=== PATIENT | male | born 1950 | race American Indian/Alaskan Native ===

== ENCOUNTER 2016-11-02 16:11 | Inpatient (IN) | payer MEDICARE ==
[2016-11-02 16:26] VITALS: BMI 30.5
[2016-11-02 17:27] LABS: EOS # 0.1 K/uL (0.0-0.7); EOS % 1.2 % (0.0-4.0)
[2016-11-02 17:29] LABS: BASO % 0.7 % (0.0-2.0); HEMATOCRIT 39.5 % (35.0-51.0); LYMPH % 16.2 % (20.0-40.0); MEAN CELL VOLUME 85.1 fL (80.0-94.0); MEAN CORPUSCULAR HEMOGLOBIN 27.1 pg (27.0-31.0); MEAN CORPUSCULAR HGB CONC 31.9 g/dL (33.0-37.0); MEAN PLATELET VOLUME 7.8 fL (7.2-11.7); MONO % 15.1 % (0.0-10.0); RED CELL DISTRIBUTION WIDTH 18.5 % (11.5-14.5); WHITE BLOOD COUNT 6.5 K/uL (4.8-10.8)
--- NOTE | 2016-11-02 17:32 | RAD ---
PROCEDURE: Radiographs of the chest and abdomen (obstructive series) HISTORY: abd pain COMPARISON: Chest x-ray 04/25/2016 TECHNIQUE: AP radiograph of the chest, with upright and supine radiographs of the abdomen. FINDINGS: CHEST: Lungs: No definite infiltrate. Evaluation at right base limited by the presence of moderate pleural effusion. Linear atelectasis adjacent to right hilum. Cardiovascular: Cardiomegaly. AICD. Mild congestive change. Pleura: Moderate right pleural effusion. No left pleural effusion. No pneumothorax. Other findings: None. ABDOMEN AND PELVIS: Bowel: Unremarkable bowel gas pattern. No evidence of mechanical obstruction. Mild retained feces. Free air: None. Bones: Unremarkable. Other findings: None. IMPRESSION: Moderate right pleural effusion. Cardiomegaly and AICD. Mild pulmonary vascular congestion. Unremarkable abdominal bowel gas pattern. Mild retained feces.
[2016-11-02 17:36] LABS: INR 1.4
[2016-11-02 17:37] LABS: CHLORIDE 101 mmol/L (98-107)
[2016-11-02 17:38] LABS: POTASSIUM 3.8 mmol/L (3.6-5.2); SODIUM 143 mmol/L (132-148)
[2016-11-02 17:40] LABS: ALB/GLOB RATIO 0.8 (1.0-2.1); ALKALINE PHOSPHATASE 88 U/L (38-126); ALT/SGPT 23 U/L (21-72); AST/SGOT 35 U/L (17-59); BILIRUBIN,TOTAL 1.3 mg/dL (0.2-1.3); BLOOD UREA NITROGEN 19 mg/dL (9-20); CARBON DIOXIDE 28 mmol/L (22-30); GFR AFRICAN-AMERICAN > 60; GLUCOSE,RANDOM 81 mg/dL (75-110); TOTAL PROTEIN 8.5 g/dL (6.3-8.3)
[2016-11-02 17:41] LABS: CALCIUM 8.6 mg/dl (8.6-10.4)
[2016-11-02 17:47] LABS: RBC URINE 11 /hpf (0-3); URINE BACTERIA RARE (<OCC); URINE BILIRUBIN NEGATIVE (NEGATIVE); URINE BLOOD 1+ (NEGATIVE); URINE CALCIUM OXALATE CRYSTALS RARE /hpf (<OCC); URINE GLUCOSE (UA) NORMAL (Normal); URINE KETONE NEGATIVE (NEGATIVE); URINE LEUKOCYTE ESTERASE NEG Leu/uL (Negative); URINE PROTEIN 3+ mg/dL (NEGATIVE); WBC URINE 3 /hpf (0-5)
[2016-11-02 17:50] LABS: URINE COLOR YELLOW (YELLOW)
--- NOTE | 2016-11-02 19:10 | C.PDOC ---
History Of Present Illness 66 year old male who presents to the ER for reaccumulating ascites. Patient was referred by Dr. Mariluz Mahajan for therapeutic abdominal paracentesis; denies nausea, vomiting, fever, or chills. Time Seen by Provider: 11/02/16 16:48 Chief Complaint (Nursing): Abdominal Pain History Per: Patient History/Exam Limitations: no limitations Onset/Duration Of Symptoms: Days Current Symptoms Are (Timing): Still Present Radiation Of Pain To:: None Associated Symptoms: denies: Fever, Chills, Nausea, Vomiting Exacerbating Factors: None Alleviating Factors: None Recent travel outside of the [place]: No Past Medical History Reviewed: Historical Data, Nursing Documentation, Vital Signs Vital Signs: Last Vital Signs Temp 97.4 F L 11/02/16 20:06 Pulse 89 11/02/16 20:06 Resp 27 H 11/02/16 20:06 BP 133/92 H 11/02/16 20:06 Pulse Ox 98 11/02/16 21:41 - Medical History PMH: Arthritis, CHF, Diabetes, HTN, Hypercholesterolemia Surgical History: Appendectomy, Pacemaker (pt states only defibrillator) - STARFACE Procedures DRAINAGE OF PERITONEAL CAVITY, PERCUTANEOUS APPROACH, DIAGN (04/26/16) Family History: States: Unknown Family Hx - Social History Hx Tobacco Use: No Hx Alcohol Use: Yes Hx Substance Use: No - Immunization History Hx Tetanus Toxoid Vaccination: Yes Hx Influenza Vaccination: Yes Hx Pneumococcal Vaccination: Yes Review Of Systems Constitutional: Negative for: Fever, Chills Respiratory: Positive for: Cough (When supine, cannot lay supine) Gastrointestinal: Positive for: Other (Ascites). Negative for: Nausea, Vomiting Neurological: Negative for: Weakness, Numbness Physical Exam - Physical Exam Appears: Non-toxic, Other (Elderly, Chronically ill) Skin: Normal Color, Warm, Dry Head: Atraumatic, Normacephalic Oral Mucosa: Moist Neck: Normal, Supple Chest: Symmetrical, No Tenderness Cardiovascular: Rhythm Regular, No Murmur Respiratory: Normal Breath Sounds, No Rales, No Rhonchi, No Wheezing Gastrointestinal/Abdominal: Soft, No Tenderness, Other (Large globus abdomen with ascites wave, flank fullness) Neurological/Psych: Oriented x3, Normal Speech, Normal Cognition ED Course And Treatment - Laboratory Results Result Diagrams: 11/02/16 17:00 11/02/16 17:19 Lab Interpretation: Normal (ua neg.) ECG: Interpreted By Me ECG Rhythm: V Paced ECG Interpretation: Normal Rate From EC O2 Sat by Pulse Oximetry: 98 - Radiology CXR: Interpreted by Me CXR Interpretation: Yes: No Acute Disease - Other Rad abd x 2 X-Ray: Interpreted by Me (normal stool/gas) Progress Note: Consent and attempt at abd paracentesis in ED, though pt unable to lay supine due to coughing, presumably from small R pleural effusion. 3 attempts with needle anesthesia/prob @ L abdomen without achieving ascitic fluid. Further attempts abandoned. LOW susp of bowl perf. Pt cleaned up and left to sit supine. Well tolerated. Reevaluation Time: 19:13 Reassessment Condition: Improved - Physician Consult Information Outcome Of Conversation: 1900: d/w Dr. Irvin Mahajan, ok to adm and plan for IR in AM Medical Decision Making Medical Decision Making: Recurrent accumulation of abd ascites with low susp of SBP, poor insight into fluid balance as pt overdrinking his diuretic regimen. Educated. Disposition Doctor Will See Patient In The: Hospital Counseled Patient/Family Regarding: Studies Performed, Diagnosis - Disposition Disposition: HOSPITALIZED Disposition Time: 19:14 Condition: GOOD - Clinical Impression Clinical Impression: Ascites - Scribe Statement The provider has reviewed the documentation as recorded by the Scribe Alec Dhillon All medical record entries made by the Gopiibe were at my direction and personally dictated by me. I have reviewed the chart and agree that the record accurately reflects my personal performance of the history, physical exam, medical decision making, and the department course for this patient. I have also personally directed, reviewed, and agree with the discharge instructions and disposition.
[2016-11-02] MEDS: (Novolog) Insulin Aspart, Recombinant 100 u/ml 10 ml vial SC SCH (21:49)
[2016-11-02] MEDS: Potassium Chloride 10 mEq ER Tab PO SCH (21:55)
[2016-11-03 00:31] VITALS: RESP 20
[2016-11-03] MEDS: (Novolog) Insulin Aspart, Recombinant 100 u/ml 10 ml vial SC SCH ×4 (07:47→22:50)
[2016-11-03] MEDS: Potassium Chloride 10 mEq ER Tab PO SCH (09:41)
--- NOTE | 2016-11-03 12:54 | CP.PCM.CON ---
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 Patient notes recurrent episodes of leg swelling and abdominal distension since diagnosed with CHF 5 years ago. Notes compliance to diuretic therapy and admits to four prior paracentesis. Associated shortness of breath with laying flat. Denies nausea, vomiting, hematemesis, abdominal pain, diarrhea, constipation, melena, hematochezia, unintentional weight loss, confusion, or altered sleeping habits. No prior EGD. Colonoscopy over ten years ago endorsed to be normal. Family-denies colon cancer, liver cancer Social- prior quart of beer daily x 30 years, endorsed sobriety for 30-40 years denies tobacco or illicit drug use Surgery-AICD, thoracentesis, paracentesis Review of Systems - Review of Systems Review of Systems: 12-point review of systems negative except for as above Past Patient History - Past Medical History & Family History Past Medical History?: Yes - Past Social History Smoking Status: Former Smoker - CARDIAC Hx Congestive Heart Failure: Yes Hx Hypercholesterolemia: Yes Hx Hypertension: Yes Hx Pacemaker: Yes (pt states only defibrillator) - PULMONARY Hx Respiratory Disorders: No - NEUROLOGICAL Hx Neurological Disorder: No - HEENT Hx HEENT Problems: No - RENAL Hx Chronic Kidney Disease: No - ENDOCRINE/METABOLIC Hx Diabetes Mellitus Type 2: Yes - HEMATOLOGICAL/ONCOLOGICAL Hx Blood Disorders: No - INTEGUMENTARY Hx Dermatological Problems: No - MUSCULOSKELETAL/RHEUMATOLOGICAL Hx Arthritis: Yes Hx Falls: Yes - GASTROINTESTINAL Hx Gastrointestinal Disorders: No Other/Comment: ascites - GENITOURINARY/GYNECOLOGICAL Hx Genitourinary Disorders: No - PSYCHIATRIC Hx Substance Use: No - SURGICAL HISTORY Hx Appendectomy: Yes Hx Herniorrhaphy: Yes (abdominal) - ANESTHESIA Hx Anesthesia: Yes Hx Anesthesia Reactions: No Meds Allergies/Adverse Reactions: Allergies Allergy/AdvReac Type Severity Reaction Status Date / Time No Known Allergies Allergy Verified 11/02/16 16:19 - Medications Medications: Current Medications Furosemide (Lasix) 40 mg IVP DAILY [facility] Last Admin: 11/03/16 09:42 Dose: 40 mg Hydralazine HCl (Apresoline) 25 mg PO DAILY [facility] Last Admin: 11/03/16 09:41 Dose: 25 mg Insulin Aspart (Novolog) 0 unit SC ACHS [facility] PRN Reason: Protocol Last Admin: 11/03/16 12:32 Dose: Not Given Pantoprazole Sodium (Protonix Inj) 40 mg IVP DAILY [facility] Last Admin: 11/03/16 09:42 Dose: 40 mg Pneumococcal Polyvalent Vaccine (Pneumovax 23 Vaccine) 0.5 ml IM .ONCE ONE Stop: 11/04/16 10:01 Polyethylene Glycol (Miralax) 17 gm PO DAILY [facility] Potassium Chloride (Klor-Con 10) 10 meq PO DAILY [facility] Last Admin: 11/03/16 09:41 Dose: 10 meq Physical Exam - Constitutional Appears: Non-toxic, No Acute Distress - Head Exam Head Exam: ATRAUMATIC, NORMOCEPHALIC - Eye Exam Eye Exam: EOMI, PERRL Pupil Exam: PERRL. absent: Miosis, Mydriatic - ENT Exam ENT Exam: Mucous Membranes Moist, Normal Oropharynx - Neck Exam Neck exam: Positive for: Full Rom, Normal Inspection - Respiratory Exam Respiratory Exam: Clear to Auscultation Bilateral. absent: Rales, Rhonchi, Wheezes - Cardiovascular Exam Cardiovascular Exam: RRR, +S1, +S2. absent: Gallop, Rubs - GI/Abdominal Exam GI & Abdominal Exam: Distended, Normal Bowel Sounds. absent: Firm, Guarding, Organomegaly, Rebound, Rigid - Extremities Exam Additional comments: B/L LE swelling R>L - Neurological Exam Neurological exam: Alert - Psychiatric Exam Psychiatric exam: Normal Affect, Normal Mood - Skin Skin Exam: Dry, Intact, Normal Color, Warm Results - Vital Signs Recent Vital Signs: Last Vital Signs Temp 97.3 F L 11/03/16 08:00 Pulse 81 11/03/16 08:00 Resp 20 11/03/16 08:00 BP 138/86 11/03/16 09:42 Pulse Ox 98 11/03/16 08:00 - Labs Result Diagrams: 11/02/16 17:00 11/02/16 17:19 Labs: Laboratory Results - last 24 hr 11/03/16 11:27 POC Glucose (mg/dL) 85 Assessment & Plan - Assessment and Plan (Free Text) Assessment: 66 year old male with history of Hypertension, Diabetes, CHF s/p AICD requiring prior thoracentesis, 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 Active treatment of decompensated cirrhosis 2/2 ascites. No prior EGD. Colonoscopy over ten years ago endorsed to be normal. Plan: >MELD 11 >diagnostic and therapeutic paracentesis ordered with fluid analysis >prior paracentesis 04/2016-SAAG 1.3, TP >2.5 >possible cardiac cirrhosis, in addition to significant alcohol history >ordered CT IV contrast to evaluate for HCC and history of seroma on last CT imaging >Duplex U/S ordered >Hepatitis panel negative 04/2016 >ordered autoimmune workup >normal LFTs, daily LFTs,PT/INR >low salt diet >Miralax daily >will consider EGD early next week for variceal screening >recommend elective outpatient colonoscopy for CRC screening >will follow clinical course <Yamila Tao MD - Last Filed: 11/03/16 18:13> Meds - Medications Medications: Current Medications Furosemide (Lasix) 40 mg IVP DAILY [facility] Last Admin: 11/03/16 09:42 Dose: 40 mg Hydralazine HCl (Apresoline) 25 mg PO DAILY [facility] Last Admin: 11/03/16 09:41 Dose: 25 mg Insulin Aspart (Novolog) 0 unit SC [facility] PRN Reason: Protocol Last Admin: 11/03/16 17:03 Dose: Not Given Pantoprazole Sodium (Protonix Inj) 40 mg IVP DAILY [facility] Last Admin: 11/03/16 09:42 Dose: 40 mg Pneumococcal Polyvalent Vaccine (Pneumovax 23 Vaccine) 0.5 ml IM .ONCE ONE Stop: 11/04/16 10:01 Polyethylene Glycol (Miralax) 17 gm PO DAILY [facility] Last Admin: 11/03/16 14:55 Dose: 17 gm Potassium Chloride (Klor-Con 10) 10 meq PO DAILY [facility] Last Admin: 11/03/16 09:41 Dose: 10 meq Results - Vital Signs Recent Vital Signs: Last Vital Signs Temp 97.5 F L 11/03/16 15:00 Pulse 79 11/03/16 15:00 Resp 20 11/03/16 15:00 BP 135/83 08/19/17 15:00 Pulse Ox 96 11/03/16 15:00 - Labs Result Diagrams: 11/02/16 17:00 11/02/16 17:19 Labs: Laboratory Results - last 24 hr 11/03/16 11/03/16 11:27 16:26 POC Glucose (mg/dL) 85 128 H Attending/Attestation - Attestation I have personally seen and examined this patient.: Yes I have fully participated in the care of the patient.: Yes I have reviewed all pertinent clinical information: Yes Notes (Text): 11/03/16 18:10 I have seen and examined patient with GI fellow. Agree with above documentation with the following additions. In brief, this is a 66 year old male with history of DM, HTN, CHF s/p ICD, past thoracent[place] [facility] [place] (?hepatic [place]thorax), who presents to hospital with complaint of progressive abdominal girth and dyspnea on exertion for the past 2 days. 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 Last paracentesis showed SAAG more than 1.5 with total protein more than 2.5 compatible with cardiac cirrhosis. 30 years ago history of alcohol abuse. Hepatitis serologies negative. Needs repeat paracentesis. He had a colonoscopy over 10 years ago which was normal as per patient, no prior EGD. - Obtain diagnostic and therapeutic paracentesis today, await results of cell count, total protein, albumin, cytology - Albumin replacement therapy pending volume of fluid removed - Low sodium diet as tolerated - Continue with diuretic therapy, may add aldactone and continue to monitor electrolytes - LFTs stable, continue to monitor - Patient would benefit from elective outpatient EGD for variceal screening and colonoscopy for age appropriate colon cancer screening following resolution of acute symptoms. - Will obtain triple phase Ct scan and abdominal sonogram with dopplers 11/03/16 18:13
--- NOTE | 2016-11-03 14:32 | CP.PCM.HP ---
Past Patient History - Past Medical History & Family History Past Medical History?: Yes - Past Social History Smoking Status: Former Smoker - CARDIAC Hx Congestive Heart Failure: Yes Hx Hypercholesterolemia: Yes Hx Hypertension: Yes Hx Pacemaker: Yes (pt states only defibrillator) - PULMONARY Hx Respiratory Disorders: No - NEUROLOGICAL Hx Neurological Disorder: No - HEENT Hx HEENT Problems: No - RENAL Hx Chronic Kidney Disease: No - ENDOCRINE/METABOLIC Hx Diabetes Mellitus Type 2: Yes - HEMATOLOGICAL/ONCOLOGICAL Hx Blood Disorders: No - INTEGUMENTARY Hx Dermatological Problems: No - MUSCULOSKELETAL/RHEUMATOLOGICAL Hx Arthritis: Yes Hx Falls: Yes - GASTROINTESTINAL Hx Gastrointestinal Disorders: No Other/Comment: ascites - GENITOURINARY/GYNECOLOGICAL Hx Genitourinary Disorders: No - PSYCHIATRIC Hx Substance Use: No - SURGICAL HISTORY Hx Appendectomy: Yes Hx Herniorrhaphy: Yes (abdominal) - ANESTHESIA Hx Anesthesia: Yes Hx Anesthesia Reactions: No Meds Allergies/Adverse Reactions: Allergies Allergy/AdvReac Type Severity Reaction Status Date / Time No Known Allergies Allergy Verified 11/02/16 16:19 Physical Exam - Constitutional Appears: Well - Head Exam Head Exam: ATRAUMATIC, NORMAL INSPECTION, NORMOCEPHALIC - Eye Exam Eye Exam: EOMI, Normal appearance, PERRL Pupil Exam: NORMAL ACCOMODATION, PERRL - ENT Exam ENT Exam: Mucous Membranes Moist, Normal Exam - Neck Exam Neck exam: Positive for: Normal Inspection - Respiratory Exam Respiratory Exam: Decreased Breath Sounds - Cardiovascular Exam Cardiovascular Exam: REGULAR RHYTHM, +S1, +S2 - GI/Abdominal Exam GI & Abdominal Exam: Diminished Bowel Sounds, Soft - Rectal Exam Rectal Exam: Deferred Results - Vital Signs Recent Vital Signs: Last Vital Signs Temp 97.3 F L 11/03/16 08:00 Pulse 81 11/03/16 08:00 Resp 20 11/03/16 08:00 BP 138/86 11/03/16 09:42 Pulse Ox 98 11/03/16 08:00 - Labs Result Diagrams: 11/02/16 17:00 11/02/16 17:19 Labs: Laboratory Results - last 24 hr 11/03/16 11:27 POC Glucose (mg/dL) 85
[2016-11-03] MEDS: POLYETHYLENE GLYCOL 3350 17 GM/Dose PACKET PO SCH (14:55)
--- NOTE | 2016-11-04 07:38 | CP.PCM.PN ---
Subjective - Date & Time of Evaluation Date of Evaluation: 11/04/16 Time of Evaluation: 05:40 - Subjective Subjective: clinically same Objective - Vital Signs/Intake and Output Vital Signs (last 24 hours): Temp Pulse Resp BP Pulse Ox 98.2 F 80 20 133/77 94 L 11/04/16 00:00 11/04/16 00:00 11/04/16 00:00 11/04/16 00:00 11/04/16 00:00 Intake and Output: 11/04/16 11/04/16 06:59 18:59 Intake Total 200 Balance 200 - Medications Medications: Current Medications Furosemide (Lasix) 40 mg IVP DAILY [facility] Last Admin: 11/03/16 09:42 Dose: 40 mg Hydralazine HCl (Apresoline) 25 mg PO DAILY [facility] Last Admin: 11/03/16 09:41 Dose: 25 mg Insulin Aspart (Novolog) 0 unit SC ACHS [facility] PRN Reason: Protocol Last Admin: 11/03/16 22:50 Dose: Not Given Pantoprazole Sodium (Protonix Inj) 40 mg IVP DAILY [facility] Last Admin: 11/03/16 09:42 Dose: 40 mg Pneumococcal Polyvalent Vaccine (Pneumovax 23 Vaccine) 0.5 ml IM .ONCE ONE Stop: 11/04/16 10:01 Polyethylene Glycol (Miralax) 17 gm PO DAILY [facility] Last Admin: 11/03/16 14:55 Dose: 17 gm Potassium Chloride (Klor-Con 10) 10 meq PO DAILY [facility] Last Admin: 11/03/16 09:41 Dose: 10 meq - Labs Labs: PT 15.3 SECONDS (9.7-12.2) H 11/02/16 17:19 INR 1.4 11/02/16 17:19 APTT 37 SECONDS (21-34) H 11/02/16 17:19 - Constitutional Appears: Well - Head Exam Head Exam: ATRAUMATIC, NORMAL INSPECTION, NORMOCEPHALIC - Eye Exam Eye Exam: EOMI, Normal appearance, PERRL Pupil Exam: NORMAL ACCOMODATION, PERRL - ENT Exam ENT Exam: Mucous Membranes Moist, Normal Exam - Neck Exam Neck Exam: Full ROM, Normal Inspection. absent: Lymphadenopathy - Respiratory Exam Respiratory Exam: Decreased Breath Sounds - Cardiovascular Exam Cardiovascular Exam: REGULAR RHYTHM, +S1, +S2 - GI/Abdominal Exam GI & Abdominal Exam: Soft, Diminished Bowel Sounds - Rectal Exam Rectal Exam: Deferred
[2016-11-04] MEDS: (Novolog) Insulin Aspart, Recombinant 100 u/ml 10 ml vial SC SCH ×4 (07:47→22:08)
[2016-11-04] MEDS ORDERED: Iohexol 300 100 ML IJ ONE (07:58)
[2016-11-04 08:47] LABS: IRON 53 ug/dL (49-181)
[2016-11-04 09:05] LABS: IMMUNOGLOBULIN G 2549.1 mg/dL (700.0-1600.0)
[2016-11-04 09:06] LABS: IMMUNOGLOBULIN A 567.4 mg/dL (70.0-400.0); IMMUNOGLOBULIN M 92.9 mg/dL (40.0-230.0)
[2016-11-04] MEDS ORDERED: Iohexol 350mg/ml 100 ML ONE (09:13)
--- NOTE | 2016-11-04 09:23 | CP.PCM.PN ---
<Sandra Colunga - Last Filed: 11/04/16 12:01> Subjective - Date & Time of Evaluation Date of Evaluation: 11/04/16 Time of Evaluation: 09:20 - Subjective Subjective: Gastroenterology Fellow/PGY5 Progress Note Patient doing well. Denies abdominal pain. Tolerating diet. No bowel movement yesterday. A 12-point review of systems negative except for as above. Objective - Vital Signs/Intake and Output Vital Signs (last 24 hours): Temp Pulse Resp BP Pulse Ox 98.4 F 78 20 143/88 95 11/04/16 09:01 11/04/16 09:01 11/04/16 09:01 11/04/16 09:01 11/04/16 09:01 Intake and Output: 11/04/16 11/04/16 06:59 18:59 Intake Total 200 Balance 200 - Medications Medications: Current Medications Furosemide (Lasix) 40 mg IVP DAILY [facility] Last Admin: 11/03/16 09:42 Dose: 40 mg Guaifenesin/Dextromethorphan (Robitussin Dm) 10 ml PO TID PRN PRN Reason: Cough and congestion Hydralazine HCl (Apresoline) 25 mg PO DAILY [facility] Last Admin: 11/03/16 09:41 Dose: 25 mg Insulin Aspart (Novolog) 0 unit SC ACHS [facility] PRN Reason: Protocol Last Admin: 11/04/16 07:47 Dose: Not Given Pantoprazole Sodium (Protonix Inj) 40 mg IVP DAILY [facility] Last Admin: 11/03/16 09:42 Dose: 40 mg Pneumococcal Polyvalent Vaccine (Pneumovax 23 Vaccine) 0.5 ml IM .ONCE ONE Stop: 11/04/16 10:01 Polyethylene Glycol (Miralax) 17 gm PO DAILY [facility] Last Admin: 11/03/16 14:55 Dose: 17 gm Potassium Chloride (Klor-Con 10) 10 meq PO DAILY [facility] Last Admin: 11/03/16 09:41 Dose: 10 meq - Labs Labs: PT 15.3 SECONDS (9.7-12.2) H 11/02/16 17:19 INR 1.4 11/02/16 17:19 APTT 37 SECONDS (21-34) H 11/02/16 17:19 - Constitutional Appears: Non-toxic, No Acute Distress - Head Exam Head Exam: NORMOCEPHALIC - Eye Exam Eye Exam: EOMI, PERRL Pupil Exam: PERRL. absent: Miosis, Mydriatic - ENT Exam ENT Exam: Mucous Membranes Moist, Normal Oropharynx - Neck Exam Neck Exam: Full ROM, Normal Inspection - Respiratory Exam Respiratory Exam: Clear to Ausculation Bilateral. absent: Rales, Rhonchi, Wheezes - Cardiovascular Exam Cardiovascular Exam: RRR, +S1, +S2. absent: Gallop, Rubs - GI/Abdominal Exam GI & Abdominal Exam: Distended, Normal Bowel Sounds. 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 Active treatment of decompensated cirrhosis 2/2 ascites. No prior EGD. Colonoscopy over ten years ago endorsed to be normal. Plan: >MELD 11 >diagnostic and therapeutic paracentesis ordered with fluid analysis >pending CT IV contrast to evaluate for HCC and history of seroma on last CT imaging >pending Duplex U/S >possible cardiac cirrhosis, in addition to significant alcohol history -prior paracentesis 04/2016-SAAG 1.3, TP >2.5 >Hepatitis panel negative 04/2016 >pending autoimmune workup >normal LFTs, daily LFTs,PT/INR >low salt diet >Miralax daily >will benefit from elective EGD for variceal screening >recommend elective outpatient colonoscopy for CRC screening >will follow clinical course <Yamila Tao MD - Last Filed: 11/04/16 12:57> Objective - Vital Signs/Intake and Output Vital Signs (last 24 hours): Temp Pulse Resp BP Pulse Ox 98.4 F 78 20 143/88 95 11/04/16 09:01 11/04/16 09:01 11/04/16 09:01 11/04/16 11:33 11/04/16 09:01 Intake and Output: 11/04/16 11/04/16 06:59 18:59 Intake Total 200 Balance 200 - Medications Medications: Current Medications Furosemide (Lasix) 40 mg IVP DAILY [facility] Last Admin: 11/04/16 11:33 Dose: 40 mg Guaifenesin/Dextromethorphan (Robitussin Dm) 10 ml PO TID PRN PRN Reason: Cough and congestion Hydralazine HCl (Apresoline) 25 mg PO DAILY [facility] Last Admin: 11/04/16 11:34 Dose: 25 mg Insulin Aspart (Novolog) 0 unit SC ACHS [facility] PRN Reason: Protocol Last Admin: 11/04/16 11:34 Dose: Not Given Pantoprazole Sodium (Protonix Inj) 40 mg IVP DAILY [facility] Last Admin: 11/04/16 11:32 Dose: 40 mg Polyethylene Glycol (Miralax) 17 gm PO DAILY [facility] Last Admin: 11/04/16 11:32 Dose: 17 gm Potassium Chloride (Klor-Con 10) 10 meq PO DAILY [facility] Last Admin: 11/04/16 11:34 Dose: 10 meq - Labs Labs: 11/04/16 12:16 11/04/16 12:16 PT 15.3 SECONDS (9.7-12.2) H 11/02/16 17:19 INR 1.4 11/02/16 17:19 APTT 37 SECONDS (21-34) H 11/02/16 17:19 Attending/Attestation - Attestation I have personally seen and examined this patient.: Yes I have fully participated in the care of the patient.: Yes I have reviewed all pertinent clinical information, including history, physical exam and plan: Yes Notes (Text): 11/04/16 12:57 I have seen and examined patient with GI fellow. Agree with above documentation with the following additions. In brief, this is a 66 year old male with history of DM, HTN, CHF s/p ICD, past thoracentesis at [facility] [place] (?hepatic hydrothorax), who presents to hospital with complaint of progressive abdominal girth and dyspnea on exertion for the past 2 days. 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 Last paracentesis showed SAAG more than 1.5 with total protein more than 2.5 compatible with cardiac cirrhosis. 30 years ago history of alcohol abuse. Hepatitis serologies negative. Needs repeat paracentesis. He had a colonoscopy over 10 years ago which was normal as per patient, no prior EGD. - Obtain diagnostic and therapeutic paracentesis today, await results of cell count, total protein, albumin, cytology - Albumin replacement therapy pending volume of fluid removed - Low sodium diet as tolerated - Continue with diuretic therapy, may add aldactone and continue to monitor electrolytes - LFTs stable, continue to monitor - Patient would benefit from elective outpatient EGD for variceal screening and colonoscopy for age appropriate colon cancer screening following resolution of acute symptoms. - Will obtain triple phase Ct scan and abdominal sonogram with dopplers
[2016-11-04] MEDS ORDERED: Pneumococcal 23-Valent Vaccine IM ONE (10:00)
--- NOTE | 2016-11-04 10:47 | CT ---
PROCEDURE: CT Abdomen and Pelvis with contrast HISTORY: evaluate cirrhosis and history of seroma COMPARISON: CT abdomen and pelvis without contrast performed 04/25/16 TECHNIQUE: Contrast dose: 100 mL Omnipaque 350 Radiation dose: Total exam DLP = 892.39 MGy-cm. This CT exam was performed using one or more of the following dose reduction techniques: Automated exposure control, adjustment of the mA and/or kV according to patient size, and/or use of iterative reconstruction technique. FINDINGS: LOWER THORAX: Partially imaged large right pleural effusion associated consolidation. No visible pneumothorax. Partially imaged cardiomegaly. AICD wires. LIVER: Hypoattenuation of the liver compatible with hepatic steatosis. Nodular hepatic contour consistent with cirrhosis. GALLBLADDER AND BILE DUCTS: Cholelithiasis. PANCREAS: Unremarkable. SPLEEN: Unremarkable. ADRENALS: Unremarkable. KIDNEYS AND URETERS: The kidneys enhance symmetrically. No hydronephrosis or obstructing calculus identified. VASCULATURE: No aortic aneurysm. BOWEL: Stomach is nondistended. Lack of oral contrast limits evaluation for bowel pathology. Bowel loops appear within normal limits of caliber without evidence of obstruction. Duodenal wall thickening possibly infectious or inflammatory etiologies. Correlate clinically. APPENDIX: The appendix is not identified. PERITONEUM: Small to moderate abdominal and pelvic ascites. No definite free air. LYMPH NODES: Prominent sub cm mesenteric and retroperitoneal lymph nodes, nonspecific. Prominent bilateral inguinal lymph nodes, nonspecific. BLADDER: Decompressed urinary bladder precludes adequate evaluation. REPRODUCTIVE: Unremarkable. BONES: Degenerative changes. OTHER FINDINGS: 2.1 x 7.2 cm collection within the anterior soft tissues, infraumbilical position ; central focus of hyperdensity, likely calcification. Collection appears grossly stable in size and appearance. IMPRESSION: Partially imaged large right pleural effusion associated consolidation. Partially imaged cardiomegaly. Cyst. Nodular hepatic contour consistent with cirrhosis. Cholelithiasis. Duodenal wall thickening possibly infectious or inflammatory etiologies. Correlate clinically. Small to moderate abdominal and pelvic ascites. 2.1 x 7.2 cm collection within the anterior soft tissues, infraumbilical position ; central focus of hyperdensity, likely calcification. Collection appears grossly stable in size and appearance. Additional findings as above.
--- NOTE | 2016-11-04 11:09 | US ---
HISTORY: cirrhosis, evaluate portal system for thrombosis COMPARISON: CT abdomen and pelvis with IV contrast performed 11/04/16 TECHNIQUE: Sonographic evaluation of the abdomen. FINDINGS: LIVER: Measures 17.1 cm in sagittal dimension. Nodular hepatic contour consistent with cirrhosis. Echogenic liver may be seen in setting of hepatic parenchymal disease or fatty infiltration. No focal hepatic mass identified. The main portal vein appears patent with normal directional flow. No intrahepatic bile duct dilatation. Ascites. GALLBLADDER: Cholelithiasis. Gallbladder wall thickening measuring approximately 4 mm. Negative sonographic Dunbar's sign as assessed by the advanced manufacturing associate. COMMON BILE DUCT: Measures 3 mm. PANCREAS: Not well visualized. RIGHT KIDNEY: Measures 10.8 x 5.2 x 5.7cm. No obstructing calculus or hydronephrosis identified. LEFT KIDNEY: Measures 11.0 x 6.1 x 5.2cm. No obstructing calculus or hydronephrosis identified. SPLEEN: Measures approximately 11.1 cm. AORTA: Limited views appear unremarkable. IVC: Limited views appear unremarkable. OTHER FINDINGS: Partially imaged right pleural effusion. IMPRESSION: Echogenic liver may be seen in setting of hepatic parenchymal disease or fatty infiltration. Nodular hepatic contour consistent with cirrhosis. Cholelithiasis. Gallbladder wall thickening. Correlate clinically. Abdominal ascites. Partially imaged right pleural effusion.
[2016-11-04] MEDS: POLYETHYLENE GLYCOL 3350 17 GM/Dose PACKET PO SCH (11:32)
[2016-11-04] MEDS: Potassium Chloride 10 mEq ER Tab PO SCH (11:34)
[2016-11-04 12:19] LABS: BASO % 0.3 % (0.0-2.0); EOS # 0.1 K/uL (0.0-0.7); EOS % 1.5 % (0.0-4.0); HEMATOCRIT 39.2 % (35.0-51.0); LYMPH # 0.9 K/uL (1.0-4.3); LYMPH % 14.5 % (20.0-40.0); MEAN CELL VOLUME 85.2 fL (80.0-94.0); MEAN CORPUSCULAR HEMOGLOBIN 26.4 pg (27.0-31.0); MEAN PLATELET VOLUME 8.2 fL (7.2-11.7); MONO # 0.9 K/uL (0.0-0.8); MONO % 14.9 % (0.0-10.0); NRBC % 0.1 % (0.0-2.0); RED CELL DISTRIBUTION WIDTH 18.6 % (11.5-14.5)
[2016-11-04 12:27] LABS: CHLORIDE 98 mmol/L (98-107)
[2016-11-04 12:28] LABS: POTASSIUM 4.3 mmol/L (3.6-5.2); SODIUM 143 mmol/L (132-148)
[2016-11-04 12:30] LABS: BILIRUBIN,TOTAL 1.5 mg/dL (0.2-1.3); GFR AFRICAN-AMERICAN > 60
[2016-11-04 12:31] LABS: ALB/GLOB RATIO 0.8 (1.0-2.1); ALKALINE PHOSPHATASE 86 U/L (38-126); ALT/SGPT 20 U/L (21-72); AST/SGOT 33 U/L (17-59); BLOOD UREA NITROGEN 16 mg/dL (9-20); CARBON DIOXIDE 33 mmol/L (22-30); GLUCOSE,RANDOM 109 mg/dL (75-110); TOTAL PROTEIN 8.1 g/dL (6.3-8.3)
[2016-11-04] MEDS: guaiFENesin DM 200 mg-20 mg/10 ml UD PO PRN (21:47)
[2016-11-05 07:23] LABS: BASO % 0.5 % (0.0-2.0); EOS # 0.1 K/uL (0.0-0.7); HEMATOCRIT 37.3 % (35.0-51.0); LYMPH # 0.9 K/uL (1.0-4.3); LYMPH % 16.4 % (20.0-40.0); MEAN CELL VOLUME 84.1 fL (80.0-94.0); MEAN CORPUSCULAR HEMOGLOBIN 26.3 pg (27.0-31.0); MEAN CORPUSCULAR HGB CONC 31.3 g/dL (33.0-37.0); MEAN PLATELET VOLUME 8.5 fL (7.2-11.7); MONO # 0.8 K/uL (0.0-0.8); MONO % 14.7 % (0.0-10.0); NRBC % 0.1 % (0.0-2.0); RED CELL DISTRIBUTION WIDTH 18.6 % (11.5-14.5); WHITE BLOOD COUNT 5.2 K/uL (4.8-10.8)
[2016-11-05 07:29] LABS: INR 1.4
[2016-11-05 07:38] LABS: CHLORIDE 98 mmol/L (98-107)
[2016-11-05 07:39] LABS: POTASSIUM 3.8 mmol/L (3.6-5.2); SODIUM 141 mmol/L (132-148)
[2016-11-05 07:41] LABS: ALB/GLOB RATIO 0.8 (1.0-2.1); ALKALINE PHOSPHATASE 77 U/L (38-126); ALT/SGPT 20 U/L (21-72); AST/SGOT 30 U/L (17-59); BILIRUBIN,TOTAL 1.1 mg/dL (0.2-1.3); BLOOD UREA NITROGEN 15 mg/dL (9-20); CARBON DIOXIDE 31 mmol/L (22-30); GFR AFRICAN-AMERICAN > 60; TOTAL PROTEIN 7.7 g/dL (6.3-8.3)
[2016-11-05 07:42] LABS: CALCIUM 8.7 mg/dl (8.6-10.4); GLUCOSE,RANDOM 78 mg/dL (75-110)
[2016-11-05] MEDS: (Novolog) Insulin Aspart, Recombinant 100 u/ml 10 ml vial SC SCH ×4 (07:57→21:28)
--- NOTE | 2016-11-05 08:57 | CP.PCM.PN ---
<Kristopher Castano - Last Filed: 11/05/16 13:25> Subjective - Date & Time of Evaluation Date of Evaluation: 11/05/16 Time of Evaluation: 07:00 - Subjective Subjective: PGY5 GI Fellow Progress Note Patient seen and examined bedside this morning. The patient has no new complaints and states he is feeling better today. Does admit to persisten SOB and dyspnea on exertion. No events overnight. 12 system ROS performed and negative except where stated Objective - Vital Signs/Intake and Output Vital Signs (last 24 hours): Temp Pulse Resp BP Pulse Ox 97.2 F L 76 20 124/85 95 11/05/16 07:31 11/05/16 07:31 11/05/16 07:31 11/05/16 07:31 11/05/16 07:31 Intake and Output: 11/05/16 11/05/16 06:59 18:59 Intake Total 550 Output Total 850 Balance -300 - Medications Medications: Current Medications Furosemide (Lasix) 40 mg IVP DAILY [facility] Last Admin: 11/04/16 11:33 Dose: 40 mg Guaifenesin/Dextromethorphan (Robitussin Dm) 10 ml PO TID PRN PRN Reason: Cough and congestion Last Admin: 11/04/16 21:47 Dose: 10 ml Hydralazine HCl (Apresoline) 25 mg PO DAILY [facility] Last Admin: 11/04/16 11:34 Dose: 25 mg Insulin Aspart (Novolog) 0 unit SC ACHS [facility] PRN Reason: Protocol Last Admin: 11/05/16 07:57 Dose: Not Given Pantoprazole Sodium (Protonix Inj) 40 mg IVP DAILY [facility] Last Admin: 11/04/16 11:32 Dose: 40 mg Polyethylene Glycol (Miralax) 17 gm PO DAILY [facility] Last Admin: 11/04/16 11:32 Dose: 17 gm Potassium Chloride (Klor-Con 10) 10 meq PO DAILY [facility] Last Admin: 11/04/16 11:34 Dose: 10 meq - Labs Labs: 11/05/16 07:08 11/05/16 07:08 PT 16.2 SECONDS (9.7-12.2) H 11/05/16 07:08 INR 1.4 11/05/16 07:08 APTT 37 SECONDS (21-34) H 11/02/16 17:19 - Constitutional Appears: Non-toxic, No Acute Distress - Eye Exam Eye Exam: EOMI, PERRL - ENT Exam ENT Exam: Mucous Membranes Moist - Respiratory Exam Respiratory Exam: Rales (RLL). absent: Clear to Ausculation Bilateral, Rhonchi , Wheezes - Cardiovascular Exam Cardiovascular Exam: RRR, +S1, +S2 - GI/Abdominal Exam GI & Abdominal Exam: Distended, Soft, Normal Bowel Sounds. absent: Firm, Guarding, Rigid, Tenderness, Organomegaly - Extremities Exam Additional comments: B/L LE edema - Neurological Exam Neurological Exam: Alert, Awake, Oriented x3 - Psychiatric Exam Psychiatric exam: Normal Affect, Normal Mood - Skin Skin Exam: Dry, Warm Assessment and Plan - Assessment and Plan (Free Text) Assessment: Patient is a 66yo male with PMHx significant for HTN, DM, CHF, decompensated cirrhosis with ascites who presented with two days of abdominal distension. -Decompensated cirrhosis -CHF -Right pleural effusion -Abdominal ascites -HTN -DM Plan: -U/S and triple phase CT reviewed -1.2L removed on paracentesis today; no evidence of SBP on cell count (38 PMNs) -No need to transfuse albumin given low volume removed -Await TP and albumin level from fluid, suspect cardiac etiology given prior findings -No evidence for thrombus on duplex -Pending autoimmune workup -2g low salt diet -Miralax daily -Will benefit from elective EGD for variceal screening -Recommend elective outpatient colonoscopy for CRC screening <Yamila Tao MD - Last Filed: 11/05/16 15:07> Objective - Vital Signs/Intake and Output Vital Signs (last 24 hours): Temp Pulse Resp BP Pulse Ox 97.2 F L 76 20 124/85 95 11/05/16 07:31 11/05/16 07:31 11/05/16 07:31 11/05/16 11:29 11/05/16 07:31 Intake and Output: 11/05/16 11/05/16 06:59 18:59 Intake Total 550 Output Total 850 Balance -300 - Medications Medications: Current Medications Furosemide (Lasix) 40 mg IVP DAILY [facility] Last Admin: 11/05/16 11:29 Dose: 40 mg Guaifenesin/Dextromethorphan (Robitussin Dm) 10 ml PO TID PRN PRN Reason: Cough and congestion Last Admin: 11/05/16 11:30 Dose: 10 ml Hydralazine HCl (Apresoline) 25 mg PO DAILY [facility] Last Admin: 11/05/16 11:31 Dose: 25 mg Insulin Aspart (Novolog) 0 unit SC ACHS [facility] PRN Reason: Protocol Last Admin: 11/05/16 11:44 Dose: Not Given Pantoprazole Sodium (Protonix Inj) 40 mg IVP DAILY [facility] Last Admin: 11/05/16 11:31 Dose: 40 mg Polyethylene Glycol (Miralax) 17 gm PO DAILY [facility] Last Admin: 11/05/16 11:31 Dose: 17 gm Potassium Chloride (Klor-Con 10) 10 meq PO DAILY [facility] Last Admin: 11/05/16 11:30 Dose: 10 meq - Labs Labs: 11/05/16 07:08 11/05/16 07:08 PT 16.2 SECONDS (9.7-12.2) H 11/05/16 07:08 INR 1.4 11/05/16 07:08 APTT 37 SECONDS (21-34) H 11/02/16 17:19 Attending/Attestation - Attestation I have personally seen and examined this patient.: Yes I have fully participated in the care of the patient.: Yes I have reviewed all pertinent clinical information, including history, physical exam and plan: Yes Notes (Text): 11/05/16 15:03 I have seen and examined patient with GI fellow. Agree with above documentation. In brief, this is a 66 year old male with history of DM, HTN, CHF s/p ICD, past thoracentesis at [facility] (?hepatic hydrothorax), who presents to hospital with complaint of progressive abdominal girth and dyspnea on exertion for the past 2 days. He was on lasix at home and only followed with legal consultant. Last paracentesis showed SAAG more than 1.5 with total protein more than 2.5 compatible with cardiac cirrhosis. 30 years ago history of alcohol abuse. Hepatitis serologies negative. He had a colonoscopy over 10 years ago which was normal as per patient, no prior EGD. - 2.1 lts removed. No SBP - Low sodium diet as tolerated - Continue with diuretic therapy, and continue to monitor electrolytes. - LFTs stable, continue to monitor - Patient would benefit from elective outpatient EGD for variceal screening and colonoscopy for age appropriate colon cancer screening following resolution of acute symptoms. - CT triple phase scan and sonogram reviewed with no lesions - Autoimmune work up pending
[2016-11-05] MEDS: Potassium Chloride 10 mEq ER Tab PO SCH ×2 (10:49→11:30)
[2016-11-05] MEDS: POLYETHYLENE GLYCOL 3350 17 GM/Dose PACKET PO SCH ×2 (10:49→11:31)
--- NOTE | 2016-11-05 11:00 | US ---
Date of Procedure: 11/05/2016 PROCEDURE: Ultrasound-guided paracentesis, CPT 74779 Medications: 7 cc 1% Lidocaine HISTORY: Ascites, abdominal pain, cirrhosis TECHNIQUE: Following informed consent , the patient was placed supine on the stretcher and the site was marked. A limited abdominal ultrasound was performed that showed a large amount of intra-abdominal fluid. Procedural time out was called and the Pt's abdomen was marked and prepped and draped in the usual sterile fashion. Ultrasound-guided large volume paracentesis performed. A total of 1.2 liters of straw colored fluid was removed without complication. IMPRESSION: Ultrasound-guided large volume paracentesis.
[2016-11-05] MEDS: guaiFENesin DM 200 mg-20 mg/10 ml UD PO PRN ×2 (11:30→17:40)
[2016-11-05 12:19] LABS: BODY FLUID TYPE PERITONEAL/ASCITES
[2016-11-05 13:05] LABS: BF GROSS APPEARANCE SL CLOUDY (CLEAR)
--- NOTE | 2016-11-05 13:55 | CP.PCM.PN ---
Subjective - Date & Time of Evaluation Date of Evaluation: 11/05/16 Time of Evaluation: 13:55 Objective - Vital Signs/Intake and Output Vital Signs (last 24 hours): Temp Pulse Resp BP Pulse Ox 97.2 F L 76 20 124/85 95 11/05/16 07:31 11/05/16 07:31 11/05/16 07:31 11/05/16 11:29 11/05/16 07:31 Intake and Output: 11/05/16 11/05/16 06:59 18:59 Intake Total 550 Output Total 850 Balance -300 - Medications Medications: Current Medications Furosemide (Lasix) 40 mg IVP DAILY [facility] Last Admin: 11/05/16 11:29 Dose: 40 mg Guaifenesin/Dextromethorphan (Robitussin Dm) 10 ml PO TID PRN PRN Reason: Cough and congestion Last Admin: 11/05/16 11:30 Dose: 10 ml Hydralazine HCl (Apresoline) 25 mg PO DAILY [facility] Last Admin: 11/05/16 11:31 Dose: 25 mg Insulin Aspart (Novolog) 0 unit SC ACHS [facility] PRN Reason: Protocol Last Admin: 11/05/16 11:44 Dose: Not Given Pantoprazole Sodium (Protonix Inj) 40 mg IVP DAILY [facility] Last Admin: 11/05/16 11:31 Dose: 40 mg Polyethylene Glycol (Miralax) 17 gm PO DAILY [facility] Last Admin: 11/05/16 11:31 Dose: 17 gm Potassium Chloride (Klor-Con 10) 10 meq PO DAILY [facility] Last Admin: 11/05/16 11:30 Dose: 10 meq - Labs Labs: 11/05/16 07:08 11/05/16 07:08 PT 16.2 SECONDS (9.7-12.2) H 11/05/16 07:08 INR 1.4 11/05/16 07:08 APTT 37 SECONDS (21-34) H 11/02/16 17:19
--- NOTE | 2016-11-05 23:54 | CARD ---
APPROVED REPORT EKG Measurement Heart [id number] <Conclusion> Ventricular-paced rhythm Abnormal ECG
[2016-11-06] MEDS: (Novolog) Insulin Aspart, Recombinant 100 u/ml 10 ml vial SC SCH ×4 (08:06→21:52)
--- NOTE | 2016-11-06 08:52 | CP.PCM.PN ---
<Ranjan Mahajan - Last Filed: 11/06/16 08:53> Subjective - Date & Time of Evaluation Date of Evaluation: 11/06/16 Time of Evaluation: 08:00 - Subjective Subjective: PGY4 GI follow-up pt seen and examined no complaints denies abd pain +BM denies any SOB amb tolerating diet Objective - Vital Signs/Intake and Output Vital Signs (last 24 hours): Temp Pulse Resp BP Pulse Ox 98.3 F 77 20 110/58 L 94 L 11/06/16 00:00 11/06/16 00:00 11/06/16 00:00 11/06/16 00:00 11/06/16 00:00 Intake and Output: 11/06/16 11/06/16 06:59 18:59 Intake Total 1300 Balance 1300 - Medications Medications: Current Medications Bisacodyl (Dulcolax) 5 mg PO ONCE ONE Stop: 11/06/16 17:01 Furosemide (Lasix) 40 mg IVP DAILY [facility] Last Admin: 11/05/16 11:29 Dose: 40 mg Guaifenesin/Dextromethorphan (Robitussin Dm) 10 ml PO TID PRN PRN Reason: Cough and congestion Last Admin: 11/05/16 17:40 Dose: 10 ml Hydralazine HCl (Apresoline) 25 mg PO DAILY [facility] Last Admin: 11/05/16 11:31 Dose: 25 mg Insulin Aspart (Novolog) 0 unit SC ACHS [facility] PRN Reason: Protocol Last Admin: 11/06/16 08:06 Dose: Not Given Pantoprazole Sodium (Protonix Inj) 40 mg IVP DAILY [facility] Last Admin: 11/05/16 11:31 Dose: 40 mg Polyethylene Glycol (Miralax) 17 gm PO DAILY [facility] Last Admin: 11/05/16 11:31 Dose: 17 gm Polyethylene Glycol/Electrolytes (Golytely) 4,000 ml PO ONCE ONE Stop: 11/06/16 14:01 Potassium Chloride (Klor-Con 10) 10 meq PO DAILY [facility] Last Admin: 11/05/16 11:30 Dose: 10 meq - Labs Labs: 11/05/16 07:08 11/05/16 07:08 PT 16.2 SECONDS (9.7-12.2) H 11/05/16 07:08 INR 1.4 11/05/16 07:08 APTT 37 SECONDS (21-34) H 11/02/16 17:19 - Constitutional Appears: Well, No Acute Distress - Head Exam Head Exam: ATRAUMATIC, NORMOCEPHALIC - Eye Exam Eye Exam: Normal appearance - ENT Exam ENT Exam: Mucous Membranes Moist, Normal Exam - Respiratory Exam Respiratory Exam: Clear to Ausculation Bilateral, NORMAL BREATHING PATTERN. absent: Rales, Rhonchi, Wheezes - Cardiovascular Exam Cardiovascular Exam: REGULAR RHYTHM, +S1, +S2 - GI/Abdominal Exam GI & Abdominal Exam: Normal Bowel Sounds. absent: Firm, Guarding, Tenderness, Organomegaly - Extremities Exam Extremities Exam: Full ROM, Normal Capillary Refill, Normal Inspection. absent : Joint Swelling - Neurological Exam Neurological Exam: Alert, Awake, Oriented x3 - Psychiatric Exam Psychiatric exam: Normal Affect, Normal Mood - Skin Skin Exam: Dry, Intact, Normal Color, Warm Assessment and Plan - Assessment and Plan (Free Text) Assessment: Patient is a 66yo male with PMHx significant for HTN, DM, CHF, decompensated cirrhosis with ascites who presented with two days of abdominal distension, s/p 1.1L abd paracentesis. -Decompensated cirrhosis -CHF -Right pleural effusion -Abdominal ascites -HTN -DM Plan: -1.2L removed on paracentesis; no evidence of SBP on cell count (38 PMNs) -No need to transfuse albumin given low volume removed -Pending autoimmune workup -2g low salt diet -Miralax daily -will scehdule for EGD and colonscopy tomorrow for screening -NPO after midnight -clears today -strat prep at 2pm d/w <Evens Edwards - Last Filed: 11/06/16 09:01> Objective - Vital Signs/Intake and Output Vital Signs (last 24 hours): Temp Pulse Resp BP Pulse Ox 98.3 F 77 20 110/58 L 94 L 11/06/16 00:00 11/06/16 00:00 11/06/16 00:00 11/06/16 00:00 11/06/16 00:00 Intake and Output: 11/06/16 11/06/16 06:59 18:59 Intake Total 1300 Balance 1300 - Medications Medications: Current Medications Bisacodyl (Dulcolax) 5 mg PO ONCE ONE Stop: 11/06/16 17:01 Furosemide (Lasix) 40 mg IVP DAILY [facility] Last Admin: 11/05/16 11:29 Dose: 40 mg Guaifenesin/Dextromethorphan (Robitussin Dm) 10 ml PO TID PRN PRN Reason: Cough and congestion Last Admin: 11/05/16 17:40 Dose: 10 ml Hydralazine HCl (Apresoline) 25 mg PO DAILY [facility] Last Admin: 11/05/16 11:31 Dose: 25 mg Insulin Aspart (Novolog) 0 unit SC ACHS [facility] PRN Reason: Protocol Last Admin: 11/06/16 08:06 Dose: Not Given Pantoprazole Sodium (Protonix Inj) 40 mg IVP DAILY [facility] Last Admin: 11/05/16 11:31 Dose: 40 mg Polyethylene Glycol (Miralax) 17 gm PO DAILY [facility] Last Admin: 11/05/16 11:31 Dose: 17 gm Polyethylene Glycol/Electrolytes (Golytely) 4,000 ml PO ONCE ONE Stop: 11/06/16 14:01 Potassium Chloride (Klor-Con 10) 10 meq PO DAILY [facility] Last Admin: 11/05/16 11:30 Dose: 10 meq - Labs Labs: 11/05/16 07:08 11/05/16 07:08 PT 16.2 SECONDS (9.7-12.2) H 11/05/16 07:08 INR 1.4 11/05/16 07:08 APTT 37 SECONDS (21-34) H 11/02/16 17:19 Attending/Attestation - Attestation I have personally seen and examined this patient.: Yes I have fully participated in the care of the patient.: Yes I have reviewed all pertinent clinical information, including history, physical exam and plan: Yes Notes (Text): 11/06/16 08:57 I have seen and examined patient with GI fellow. Patient is seen ambulating in hallway with assistance of walker, appears comfortable. s/p paracentesis yesterday with 1.7 liters of fluid removed. He denies abdominal pain, nausea, vomiting, fever/chills. Tolerating PO diet without difficulty. Review of vitals from today are normal. DM / HTN CHF s/p ICD Decompensated cirrhosis, etiology unclear though suspected cardiac cause - Ascitic fluid results show no evidence of SBP, awaiting total protein and albumin - H/H stable, continue to monitor - Awaiting autoimmune panel - Continue with diuretic therapy, monitor electrolytes - Given cardiac disease, would favor inpatient endoscopic evaluation EGD and colonoscopy for variceal and cancer screening. Golytely bowel preparation today , clear liquid diet, NPO after midnight.
[2016-11-06] MEDS: Potassium Chloride 10 mEq ER Tab PO SCH (09:58)
[2016-11-06] MEDS: POLYETHYLENE GLYCOL 3350 17 GM/Dose PACKET PO SCH (10:03)
[2016-11-06] MEDS ORDERED: Peg-Electrolyte Oral Soln 4L (Golytely) PO ONE (14:00)
--- NOTE | 2016-11-06 16:35 | CP.PCM.PN ---
Subjective - Date & Time of Evaluation Date of Evaluation: 11/06/16 Time of Evaluation: 16:35 Objective - Vital Signs/Intake and Output Vital Signs (last 24 hours): Temp Pulse Resp BP Pulse Ox 97.4 F L 80 20 131/80 97 11/06/16 16:00 11/06/16 16:00 11/06/16 16:00 11/06/16 16:00 11/06/16 16:00 Intake and Output: 11/06/16 11/06/16 06:59 18:59 Intake Total 1300 Balance 1300 - Medications Medications: Current Medications Bisacodyl (Dulcolax) 5 mg PO ONCE ONE Stop: 11/06/16 17:01 Furosemide (Lasix) 40 mg IVP DAILY [facility] Last Admin: 11/06/16 09:58 Dose: 40 mg Guaifenesin/Dextromethorphan (Robitussin Dm) 10 ml PO TID PRN PRN Reason: Cough and congestion Last Admin: 11/05/16 17:40 Dose: 10 ml Hydralazine HCl (Apresoline) 25 mg PO DAILY [facility] Last Admin: 11/06/16 09:58 Dose: 25 mg Insulin Aspart (Novolog) 0 unit SC ACHS [facility] PRN Reason: Protocol Last Admin: 11/06/16 12:21 Dose: Not Given Pantoprazole Sodium (Protonix Inj) 40 mg IVP DAILY [facility] Last Admin: 11/06/16 09:57 Dose: 40 mg Polyethylene Glycol (Miralax) 17 gm PO DAILY [facility] Last Admin: 11/06/16 10:03 Dose: 17 gm Potassium Chloride (Klor-Con 10) 10 meq PO DAILY [facility] Last Admin: 11/06/16 09:58 Dose: 10 meq - Labs Labs: 11/05/16 07:08 11/05/16 07:08 PT 16.2 SECONDS (9.7-12.2) H 11/05/16 07:08 INR 1.4 11/05/16 07:08 APTT 37 SECONDS (21-34) H 11/02/16 17:19
[2016-11-06] MEDS ORDERED: Bisacodyl 5mg EC Tab PO ONE (17:00)
[2016-11-07] MEDS: (Novolog) Insulin Aspart, Recombinant 100 u/ml 10 ml vial SC SCH ×4 (07:54→21:14)
[2016-11-07] MEDS ORDERED: Propofol 10 mg/ml Inj (20 ML) ONE (10:56)
[2016-11-07] MEDS ORDERED: Midazolam 2 MG/2 ML VIAL ONE (10:56)
[2016-11-07] MEDS: Potassium Chloride 10 mEq ER Tab PO SCH (14:00)
[2016-11-07] MEDS: POLYETHYLENE GLYCOL 3350 17 GM/Dose PACKET PO SCH (14:01)
--- NOTE | 2016-11-07 15:03 | CP.PCM.PN ---
Subjective - Date & Time of Evaluation Date of Evaluation: 11/07/16 Time of Evaluation: 15:03 Objective - Vital Signs/Intake and Output Vital Signs (last 24 hours): Temp Pulse Resp BP Pulse Ox 97 F L 84 20 110/70 99 11/07/16 11:40 11/07/16 12:10 11/07/16 12:10 11/07/16 14:01 11/07/16 12:10 Intake and Output: 11/07/16 11/07/16 06:59 18:59 Intake Total 250 600 Output Total 350 Balance 250 250 - Medications Medications: Current Medications Furosemide (Lasix) 40 mg IVP DAILY [facility] Last Admin: 11/07/16 14:01 Dose: 40 mg Guaifenesin/Dextromethorphan (Robitussin Dm) 10 ml PO TID PRN PRN Reason: Cough and congestion Last Admin: 11/05/16 17:40 Dose: 10 ml Hydralazine HCl (Apresoline) 25 mg PO DAILY [facility] Last Admin: 11/07/16 13:59 Dose: 25 mg Insulin Aspart (Novolog) 0 unit SC ACHS [facility] PRN Reason: Protocol Last Admin: 11/07/16 14:01 Dose: Not Given Pantoprazole Sodium (Protonix Inj) 40 mg IVP DAILY [facility] Last Admin: 11/07/16 14:00 Dose: 40 mg Polyethylene Glycol (Miralax) 17 gm PO DAILY [facility] Last Admin: 11/07/16 14:01 Dose: Not Given Potassium Chloride (Klor-Con 10) 10 meq PO DAILY [facility] Last Admin: 11/07/16 14:00 Dose: 10 meq Spironolactone (Aldactone) 100 mg PO DAILY [facility] - Labs Labs: 11/05/16 07:08 11/05/16 07:08 PT 16.2 SECONDS (9.7-12.2) H 11/05/16 07:08 INR 1.4 11/05/16 07:08 APTT 37 SECONDS (21-34) H 11/02/16 17:19
--- NOTE | 2016-11-07 16:25 | CP.PCM.PN ---
Subjective - Date & Time of Evaluation Date of Evaluation: 11/07/16 Time of Evaluation: 16:21 - Subjective Subjective: Patient seen and examined. S/p EGD and colonoscopy today showing mild gastritis , no presence of esophageal varices, small internal hemorrhoids. Objective - Vital Signs/Intake and Output Vital Signs (last 24 hours): Temp Pulse Resp BP Pulse Ox 97 F L 84 20 110/70 99 11/07/16 11:40 11/07/16 12:10 11/07/16 12:10 11/07/16 14:01 11/07/16 12:10 Intake and Output: 11/07/16 11/07/16 06:59 18:59 Intake Total 250 600 Output Total 350 Balance 250 250 - Medications Medications: Current Medications Furosemide (Lasix) 40 mg IVP DAILY [facility] Last Admin: 11/07/16 14:01 Dose: 40 mg Guaifenesin/Dextromethorphan (Robitussin Dm) 10 ml PO TID PRN PRN Reason: Cough and congestion Last Admin: 11/05/16 17:40 Dose: 10 ml Hydralazine HCl (Apresoline) 25 mg PO DAILY [facility] Last Admin: 11/07/16 13:59 Dose: 25 mg Insulin Aspart (Novolog) 0 unit SC ACHS [facility] PRN Reason: Protocol Last Admin: 11/07/16 14:01 Dose: Not Given Pantoprazole Sodium (Protonix Inj) 40 mg IVP DAILY [facility] Last Admin: 11/07/16 14:00 Dose: 40 mg Polyethylene Glycol (Miralax) 17 gm PO DAILY [facility] Last Admin: 11/07/16 14:01 Dose: Not Given Potassium Chloride (Klor-Con 10) 10 meq PO DAILY [facility] Last Admin: 11/07/16 14:00 Dose: 10 meq Spironolactone (Aldactone) 100 mg PO DAILY [facility] - Labs Labs: 11/05/16 07:08 11/05/16 07:08 PT 16.2 SECONDS (9.7-12.2) H 11/05/16 07:08 INR 1.4 11/05/16 07:08 APTT 37 SECONDS (21-34) H 11/02/16 17:19 Assessment and Plan - Assessment and Plan (Free Text) Assessment: DM / HTN CHF s/p ICD Decompensated cirrhosis, suspected cardiac etiology, total protein in ascitic fluid > 4, SAAG > 1.1 Plan: - Low sodium diet as tolerated - Continue with diuretic therapy, monitor electrolytes - Await biopsy results from EGD - Ascitic fluid analysis suggestive of cardiac cirrhosis, await autoimmune panel - From GI perspective ok to discharge patient home with subsequent outpatient follow up. Will sign off case, please reconsult as necessary, thank you.
[2016-11-07 19:24] LABS: LKM-1 Ab (IgG) <=20.0 U (<=20.0)
[2016-11-07] MEDS: Sacubitril/Valsartan 24-26mg Tab PO SCH (21:13)
[2016-11-08 01:32] VITALS: TEMP 98.1
[2016-11-08] MEDS: (Novolog) Insulin Aspart, Recombinant 100 u/ml 10 ml vial SC SCH (07:30)
[2016-11-08 08:58] VITALS: BP 125/72; PULSE 86; O2SAT 95
[2016-11-08] MEDS: Sacubitril/Valsartan 24-26mg Tab PO SCH (09:10)
[2016-11-08] MEDS: Potassium Chloride 10 mEq ER Tab PO SCH (09:22)
[2016-11-08] MEDS: POLYETHYLENE GLYCOL 3350 17 GM/Dose PACKET PO SCH (11:01)
--- NOTE | 2016-11-08 12:23 | CP.PCM.PN ---
Subjective - Date & Time of Evaluation Date of Evaluation: 11/15/16 Time of Evaluation: 12:23 - Subjective Subjective: Alert, awake, NAD. Objective - Vital Signs/Intake and Output Vital Signs (last 24 hours): Temp Pulse Resp BP Pulse Ox 98.1 F 86 20 125/72 95 11/08/16 08:57 11/08/16 08:57 11/08/16 08:57 11/08/16 09:08 11/08/16 08:57 Intake and Output: 11/08/16 11/08/16 06:59 18:59 Intake Total 240 Balance 240 - Medications Medications: Current Medications Furosemide (Lasix) 40 mg IVP DAILY [facility] Last Admin: 11/08/16 09:08 Dose: 40 mg Guaifenesin/Dextromethorphan (Robitussin Dm) 10 ml PO TID PRN PRN Reason: Cough and congestion Last Admin: 11/05/16 17:40 Dose: 10 ml Hydralazine HCl (Apresoline) 25 mg PO DAILY [facility] Last Admin: 11/08/16 09:10 Dose: 25 mg Insulin Aspart (Novolog) 0 unit SC ACHS [facility] PRN Reason: Protocol Last Admin: 11/08/16 07:30 Dose: Not Given Pantoprazole Sodium (Protonix Inj) 40 mg IVP DAILY [facility] Last Admin: 11/08/16 09:08 Dose: 40 mg Polyethylene Glycol (Miralax) 17 gm PO DAILY [facility] Last Admin: 11/08/16 11:01 Dose: Not Given Potassium Chloride (Klor-Con 10) 10 meq PO DAILY [facility] Last Admin: 11/08/16 09:22 Dose: 10 meq Sacubitril/Valsartan (Entresto 24 Mg-26 Mg) 1 tab PO BID [facility] Last Admin: 11/08/16 09:10 Dose: 1 tab Spironolactone (Aldactone) 100 mg PO DAILY [facility] Last Admin: 11/08/16 09:12 Dose: 100 mg - Labs Labs: 11/05/16 07:08 11/05/16 07:08 PT 16.2 SECONDS (9.7-12.2) H 11/05/16 07:08 INR 1.4 11/05/16 07:08 APTT 37 SECONDS (21-34) H 11/02/16 17:19 Assessment and Plan - Assessment and Plan (Free Text) Assessment: Patient diagnosed with CHF, DM, arthritis, large ascitis is seen and examined. Post paracentesis. Alert and orientedx3, denies sob or chst pains. Had EGD done yesterday, cleared by GI for discharge home. Will benefit from home care and home PT for CHF, and gait training. To be seen by PMD in 1 week.
--- NOTE | 2016-11-08 17:09 | PCM.HF ---
Heart Failure Core Measure - Heart Failure Ejection Fraction: 40 % or Greater (EF 40-45%) JUANITA Inhibitor Prescribed: No Contraindication/Reason for not providinn arb Beta-Erlnida Prescribed: None Contraindication/Reason for not providing: EF >40% Angiotensin II Receptor Erlinda Prescribed: Yes AnticoagulationTherapy for Atrial Fibrillation/Atrialflutter: No Contraindication/Reason for not providing: no afib Aldosterone Antagonist Prescribed: No Contraindication/Reason for not providing: EF >40% Hydralazine Nitrate Prescribed: Yes Implantable Cardioverter Defibrillator Therapy: Yes Cardiac Resynchronization Therapy Prescribed: No Contraindication/Reason for not providing: not indicated - Follow up Will be discharged to: Home (home care/ home PT) Follow Up Date (must be within 7 days from discharge): 11/12/16 Follow Up Time: 09:00
[2016-11-09] MEDS ORDERED: Pantoprazole 40 mg EC Tab PO SCH (10:00)
== END 2016-11-08 15:45 | disposition home or self-care (01) | DRG 433 ==
LOC: C.ER 16:11 → C.9E 19:10 → C.3T 19:45 → OBSVTOIN 11-03 10:30
PROVIDERS: ADMIT Internal Medicine Nephrology; ATTEND Internal Medicine Nephrology
PROC: 0W9G3ZZ Drainage of Peritoneal Cavity, Percutaneous Approach (ICD-10-PCS; principal; 2016-11-05)
PROC: 0DJD8ZZ Inspection of Lower Intestinal Tract, Via Natural or Artificial Opening Endoscopic (ICD-10-PCS; 2016-11-07)
PROC: 0DB68ZX Excision of Stomach, Via Natural or Artificial Opening Endoscopic, Diagnostic (ICD-10-PCS; 2016-11-07 10:49)
DX: K74.60 Unspecified cirrhosis of liver (principal); R18.8 Other ascites; I11.0 Hypertensive heart disease with heart failure; I50.9 Heart failure, unspecified; K76.1 Chronic passive congestion of liver; E11.9 Type 2 diabetes mellitus without complications; E78.00 Pure hypercholesterolemia, unspecified; K29.70 Gastritis, unspecified, without bleeding; F10.20 Alcohol dependence, uncomplicated; K64.2 Third degree hemorrhoids; Z87.891 Personal history of nicotine dependence; Z95.0 Presence of cardiac pacemaker; Z95.810 Presence of automatic (implantable) cardiac defibrillator

== ENCOUNTER 2017-01-10 01:53 | Observation (INO) | payer MEDICARE ==
[2017-01-10 01:54] VITALS: BMI 30.5
[2017-01-10 03:31] LABS: BASO # 0.1 K/uL (0.0-0.2); BASO % 0.8 % (0.0-2.0); EOS # 0.1 K/uL (0.0-0.7); EOS % 0.9 % (0.0-4.0); HEMATOCRIT 21.3 % (35.0-51.0); LYMPH # 1.3 K/uL (1.0-4.3); MEAN CELL VOLUME 85.5 fL (80.0-94.0); MEAN CORPUSCULAR HEMOGLOBIN 27.5 pg (27.0-31.0); MEAN CORPUSCULAR HGB CONC 32.2 g/dL (33.0-37.0); MEAN PLATELET VOLUME 7.3 fL (7.2-11.7); MONO # 1.5 K/uL (0.0-0.8); NRBC % 0.1 % (0.0-2.0); RED CELL DISTRIBUTION WIDTH 18.2 % (11.5-14.5)
[2017-01-10 03:36] LABS: WHITE BLOOD COUNT 9.4 K/uL (4.8-10.8)
[2017-01-10 03:40] LABS: CHLORIDE 100 mmol/L (98-107); SODIUM 135 mmol/L (132-148)
[2017-01-10 03:41] LABS: POTASSIUM 4.5 mmol/L (3.6-5.2)
[2017-01-10 03:43] LABS: ALB/GLOB RATIO 0.8 (1.0-2.1); ALKALINE PHOSPHATASE 74 U/L (38-126); AST/SGOT 19 U/L (17-59); BILIRUBIN,TOTAL 0.8 mg/dL (0.2-1.3); BLOOD UREA NITROGEN 23 mg/dL (9-20); CARBON DIOXIDE 24 mmol/L (22-30); GFR AFRICAN-AMERICAN > 60; GLUCOSE,RANDOM 98 mg/dL (75-110); TOTAL PROTEIN 7.5 g/dL (6.3-8.3)
[2017-01-10 03:44] LABS: ALT/SGPT 26 U/L (21-72); CALCIUM 7.6 mg/dl (8.6-10.4)
--- NOTE | 2017-01-10 05:15 | C.PDOC ---
History Of Present Illness Patient is a 66 y/o male who presents to the ED with a complaint of bleeding to the right small toe. Patient notes coughing for the last few days with mild SOB. Denies CP, abd pain, fever, and bloody stool and urine. Patient has no other complaints at this time. Chief Complaint (Nursing): Abnormal Skin Integrity History Per: Patient History/Exam Limitations: no limitations Onset/Duration Of Symptoms: Days Current Symptoms Are (Timing): Still Present Recent travel outside of the [place]: No Past Medical History Reviewed: Historical Data, Nursing Documentation, Vital Signs Vital Signs: Last Vital Signs Temp 97.4 F L 01/10/17 16:06 Pulse 78 01/10/17 18:00 Resp 20 01/10/17 16:06 BP 113/58 L 01/10/17 16:06 Pulse Ox 96 01/10/17 16:06 - Medical History PMH: Arthritis, CHF, Diabetes, HTN, Hypercholesterolemia Denies: Chronic Kidney Disease Surgical History: Appendectomy, Pacemaker (pt states only defibrillator) - [employer] Procedures DRAINAGE OF PERITONEAL CAVITY, PERCUTANEOUS APPROACH (11/03/16) DRAINAGE OF PERITONEAL CAVITY, PERCUTANEOUS APPROACH, DIAGN (04/26/16) EXCISION OF STOMACH, ENDO, DIAGN (11/03/16) INSPECTION OF LOWER INTESTINAL TRACT, ENDO (11/03/16) Family History: States: Unknown Family Hx - Social History Hx Tobacco Use: No Hx Alcohol Use: Yes Hx Substance Use: No - Immunization History Hx Tetanus Toxoid Vaccination: Yes Hx Influenza Vaccination: Yes Hx Pneumococcal Vaccination: Yes Review Of Systems Constitutional: Negative for: Fever Cardiovascular: Negative for: Chest Pain Respiratory: Positive for: Cough, Shortness of Breath (mild) Gastrointestinal: Negative for: Abdominal Pain, Hematochezia Genitourinary: Negative for: Hematuria Physical Exam - Physical Exam Appears: Well, Non-toxic, No Acute Distress Skin: Normal Color, Warm, Dry Head: Atraumatic, Normacephalic Oral Mucosa: Moist Chest: Symmetrical Cardiovascular: Rhythm Regular, No Murmur Respiratory: Rales (at bases of lungs bilaterally), No Rhonchi, No Wheezing, Other (hepatomegaly) Gastrointestinal/Abdominal: Soft, No Tenderness Extremity: Pedal Edema (bilaterally) Neurological/Psych: Oriented x3, Normal Speech, Normal Cognition ED Course And Treatment - Laboratory Results Result Diagrams: 01/10/17 17:19 01/10/17 03:29 ECG: Interpreted By Me, Viewed By Me ECG Rhythm: V Paced Interpretation Of ECG: no changes from previous ECGs. Rate From EC (bpm) O2 Sat by Pulse Oximetry: 95 Progress Note: Plan: CXR, EKG, and blood work ordered. Lasix administered. Reasses: Patient admitted to telemetry. - Physician Consult Information Time Consulting Physician Contacted: 04:45 Physician Contacted: Warren Jimenez Outcome Of Conversation: Hospitalist reviewed case and agreed upon transfusion. Transfusion ordered and consented. Patient to be admitted to telemetry. Disposition - Disposition Disposition: HOSPITALIZED Disposition Time: 04:30 Condition: FAIR - Clinical Impression Clinical Impression: CHF (congestive heart failure), Anemia - Scribe Statement The provider has reviewed the documentation as recorded by the Scribe Richa Eng All medical record entries made by the Scribe were at my direction and personally dictated by me. I have reviewed the chart and agree that the record accurately reflects my personal performance of the history, physical exam, medical decision making, and the department course for this patient. I have also personally directed, reviewed, and agree with the discharge instructions and disposition.
--- NOTE | 2017-01-10 05:33 | CP.PCM.HP ---
<NailsChhaya sniderVikas - Last Filed: 01/10/17 07:09> History of Present Illness - History of Present Illness History of Present Illness: CC: "My foot is bleeding" HPI: 66 year old male with past medical history of Defibrillator, hypertension, and CHF, presents to the ED with complaints that his right foot won't stop bleeding. Two days ago, patient looked down at his foot and noticed it was in a puddle of blood. Patient proceeded to get into the shower and the bleeding stopped after 20 minutes. Yesterday afternoon, patient noticed his foot was bleeding again. Patient got into the shower again to attempt to stop the bleeding; patient stated it took 1 hour for the bleeding to stop. He decided to go to the hospital to have his foot looked at. Patient stated this has never happened before. Patient denied trauma or pain to the foot. Patient states his right foot feels "funny." Patient also complains of weakness and a productive cough that started two days ago. Patient states he has had shortness of breath for 4-5 years since having his pacemaker placed. Patient states he becomes short of breath on exertion and sleeps with one pillow at home. Patient denies short of breath at rest but states when he walked from the bathroom to his bed he had to stop twice to catch his breath while he has been here in the emergency room. Patient denies chest pain, fever, headache, dysuria, or hematachezia. PMD: Dr. Rock Booking Clerk: Dr. 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 Patient denied illicit drug use. Patient stated he smoked "during the 70s" but does not smoke anymore. Patient states he occasionally has a glass of wine with dinner. Present on Admission - Present on Admission Any Indicators Present on Admission: No Review of Systems - Constitutional Constitutional: Weakness. absent: Chills, Headache - EENT Eyes: absent: Blurred Vision, Change in Vision Ears: absent: Dizziness - Cardiovascular Cardiovascular: Dyspnea. absent: Chest Pain, Palpitations - Respiratory Respiratory: Cough, Dyspnea, Dyspnea on Exertion, Change in Mucous Color (white) . absent: Wheezing - Gastrointestinal Gastrointestinal: absent: Constipation, Diarrhea, Hematemesis, Hematochezia, Nausea, Vomiting - Genitourinary Genitourinary: absent: Dysuria, Urinary Frequency, Urinary Hesitance - Musculoskeletal Musculoskeletal: absent: Joint Swelling, Numbness, Tingling - Integumentary Integumentary: Dry Skin Additional comments: right foot is bleeding - Neurological Neurological: Weakness. absent: Dizziness, Numbness, Headaches, Syncope, Tingling - Endocrine Endocrine: absent: Fatigue, Palpitations Past Patient History - Past Medical History & Family History Past Medical History?: Yes - Past Social History Smoking Status: Former Smoker - CARDIAC Hx Congestive Heart Failure: Yes Hx Hypercholesterolemia: Yes Hx Hypertension: Yes Hx Pacemaker: Yes (pt states only defibrillator) - PULMONARY Hx Respiratory Disorders: No - NEUROLOGICAL Hx Neurological Disorder: No - HEENT Hx HEENT Problems: No - RENAL Hx Chronic Kidney Disease: No - ENDOCRINE/METABOLIC Hx Diabetes Mellitus Type 2: Yes - HEMATOLOGICAL/ONCOLOGICAL Hx Blood Disorders: No - INTEGUMENTARY Hx Dermatological Problems: No - MUSCULOSKELETAL/RHEUMATOLOGICAL Hx Arthritis: Yes - GASTROINTESTINAL Hx Gastrointestinal Disorders: No Other/Comment: ascites - GENITOURINARY/GYNECOLOGICAL Hx Genitourinary Disorders: No - PSYCHIATRIC Hx Substance Use: No - SURGICAL HISTORY Hx Appendectomy: Yes - ANESTHESIA Hx Anesthesia: Yes Hx Anesthesia Reactions: No Meds Allergies/Adverse Reactions: Allergies Allergy/AdvReac Type Severity Reaction Status Date / Time No Known Allergies Allergy Verified 11/02/16 16:19 Physical Exam - Constitutional Appears: No Acute Distress - Head Exam Head Exam: NORMAL INSPECTION, NORMOCEPHALIC - Eye Exam Eye Exam: EOMI, Normal appearance, PERRL Pupil Exam: NORMAL ACCOMODATION - ENT Exam ENT Exam: Mucous Membranes Moist - Respiratory Exam Respiratory Exam: Decreased Breath Sounds (right lower lung), NORMAL BREATHING PATTERN. absent: Rales, Rhonchi, Wheezes - Cardiovascular Exam Cardiovascular Exam: REGULAR RHYTHM, +S1, +S2. absent: JVD - GI/Abdominal Exam GI & Abdominal Exam: Normal Bowel Sounds, Soft. absent: Tenderness - Extremities Exam Extremities exam: Negative for: normal inspection (bilteral lower extremies dry skin; skin was in tact in bilateral lower extremities; right foot - 5th metatarsal had blood tinged at cuticle ), pedal edema, tenderness Results - Vital Signs Recent Vital Signs: Last Vital Signs Temp 98.3 F 01/10/17 02:09 Pulse 88 01/10/17 04:39 Resp 18 01/10/17 04:39 BP 119/60 01/10/17 04:39 Pulse Ox 95 01/10/17 05:20 - Labs Result Diagrams: 01/10/17 03:29 01/10/17 03:29 Labs: Laboratory Results - last 24 hr 01/10/17 01/10/17 01/10/17 03:29 03:29 03:45 WBC 9.4 D RBC 2.49 L Hgb 6.8 L D Hct 21.3 L MCV 85.5 MCH 27.5 MCHC 32.2 L RDW 18.2 H Plt Count 186 MPV 7.3 Neut % (Auto) 68.3 Lymph % (Auto) 14.0 L Winn % (Auto) 16.0 H Eos % (Auto) 0.9 Baso % (Auto) 0.8 Neut # 6.5 Lymph # 1.3 Winn # 1.5 H Eos # 0.1 Baso # 0.1 Sodium 135 Potassium 4.5 Chloride 100 Carbon Dioxide 24 Anion Gap 15 BUN 23 H Creatinine 1.0 Est GFR ( Amer) > 60 Est GFR (Non-Af Amer) > 60 Random Glucose 98 Calcium 7.6 L Total Bilirubin 0.8 AST 19 ALT 26 Alkaline Phosphatase 74 Troponin I 0.0350 NT-Pro-B Natriuret Pep 7030 H Total Protein 7.5 Albumin 3.3 L Globulin 4.2 H Albumin/Globulin Ratio 0.8 L Stool Occult Blood Blood Type A POSITIVE Antibody Screen Negative 01/10/17 05:01 WBC RBC Hgb Hct MCV MCH MCHC RDW Plt Count MPV Neut % (Auto) Lymph % (Auto) Winn % (Auto) Eos % (Auto) Baso % (Auto) Neut # Lymph # Winn # Eos # Baso # Sodium Potassium Chloride Carbon Dioxide Anion Gap BUN Creatinine Est GFR ( Amer) Est GFR (Non-Af Amer) Random Glucose Calcium Total Bilirubin AST ALT Alkaline Phosphatase Troponin I NT-Pro-B Natriuret Pep Total Protein Albumin Globulin Albumin/Globulin Ratio Stool Occult Blood Negative Blood Type Antibody Screen Assessment & Plan - Assessment and Plan (Free Text) Assessment: 1.) Acute Anemia possibly secondary to right lower extremity bleed - H/H on admission (01/10): 6.8/21.3 - Type and Cross - 2 units of PRBC ordered - f/u CBC at 10am - stool occult blood: negative - f/u PT,PTT, reticulocyte count, ferritin, TSH, folate, B12 2.) Left Lower Extremity bleed - Podiatry Consult: Dr. Meza --> help appreciated - Previous history of diabetes was removed from medications 6 months prior by primary physician - f/u hA1c 3.) Shortness possibly secondary to Anemia vs. History of CHF - Troponin: 0.0350 - f/u Troponin x2 and EKG - f/u chest x-ray 4.) History of CHF - f/u repeat EKG - ECHO (08/10/13):EF 43%; left ventricle is mildly dilated; there is moderate concentric left ventricular hypertrophy; right ventricle is mildly dilated; systolic function is mildly to moderately reduced; the left atrium, is mildly dilated; mitral regurgitation is mild; mild tricuspid regurgitation - Per patient defibrillator was last checked about 1 year prior. He currently does not have the card for the defibrillator - BNP: 7030 - Aspirin 81mg daily - Furosemide 40mg, - Entresto (sacubitril/valsartan) 24mg-26mg One tab daily - Losartan Potassium 25mg PO daily 5.) History HTN - Entresto (sacubitril/valsartan) 24mg-26mg One tab daily - Losartan Potassium 25mg PO daily 6.) Prophylaxis - Pepcid daily - VTE contraindication due to acute anemia Case discussed with Dr. Luba Nails PGY-1 <Mundo Verduzco - Last Filed: 01/10/17 19:17> Results - Vital Signs Recent Vital Signs: Last Vital Signs Temp 97.4 F L 01/10/17 16:06 Pulse 77 01/10/17 16:06 Resp 20 01/10/17 16:06 BP 113/58 L 01/10/17 16:06 Pulse Ox 96 01/10/17 16:06 - Labs Result Diagrams: 01/10/17 17:19 01/10/17 03:29 Labs: Laboratory Results - last 24 hr 01/10/17 01/10/17 01/10/17 03:29 03:29 03:45 WBC 9.4 D RBC 2.49 L Hgb 6.8 L D Hct 21.3 L MCV 85.5 MCH 27.5 MCHC 32.2 L RDW 18.2 H Plt Count 186 MPV 7.3 Neut % (Auto) 68.3 Lymph % (Auto) 14.0 L Winn % (Auto) 16.0 H Eos % (Auto) 0.9 Baso % (Auto) 0.8 Neut # 6.5 Lymph # 1.3 Winn # 1.5 H Eos # 0.1 Baso # 0.1 Retic Count PT INR APTT Sodium 135 Potassium 4.5 Chloride 100 Carbon Dioxide 24 Anion Gap 15 BUN 23 H Creatinine 1.0 Est GFR ( Amer) > 60 Est GFR (Non-Af Amer) > 60 Random Glucose 98 Hemoglobin A1c Calcium 7.6 L Ferritin Total Bilirubin 0.8 Direct Bilirubin GGT AST 19 ALT 26 Alkaline Phosphatase 74 Ammonia Total Creatine Kinase CK-MB (Mass) Troponin I 0.0350 Troponin I, Quant NT-Pro-B Natriuret Pep 7030 H Total Protein 7.5 Albumin 3.3 L Globulin 4.2 H Albumin/Globulin Ratio 0.8 L Vitamin B12 Folate TSH 3rd Generation Stool Occult Blood Blood Type A POSITIVE Antibody Screen Negative 01/10/17 01/10/17 01/10/17 05:01 06:57 07:02 WBC RBC Hgb Hct MCV MCH MCHC RDW Plt Count MPV Neut % (Auto) Lymph % (Auto) Winn % (Auto) Eos % (Auto) Baso % (Auto) Neut # Lymph # Winn # Eos # Baso # Retic Count PT INR APTT Sodium Potassium Chloride Carbon Dioxide Anion Gap BUN Creatinine Est GFR ( Amer) Est GFR (Non-Af Amer) Random Glucose Hemoglobin A1c 5.7 Calcium Ferritin 18.3 Total Bilirubin Direct Bilirubin GGT AST ALT Alkaline Phosphatase Ammonia Total Creatine Kinase CK-MB (Mass) Troponin I Troponin I, Quant NT-Pro-B Natriuret Pep Total Protein Albumin Globulin Albumin/Globulin Ratio Vitamin B12 647 Folate 10.5 TSH 3rd Generation 3.19 Stool Occult Blood Negative Blood Type Antibody Screen 01/10/17 01/10/17 01/10/17 08:10 11:44 14:48 WBC RBC Hgb Hct MCV MCH MCHC RDW Plt Count MPV Neut % (Auto) Lymph % (Auto) Winn % (Auto) Eos % (Auto) Baso % (Auto) Neut # Lymph # Winn # Eos # Baso # Retic Count PT 17.6 H 16.5 H INR 1.5 1.4 APTT 32 32 Sodium Potassium Chloride Carbon Dioxide Anion Gap BUN Creatinine Est GFR ( Amer) Est GFR (Non-Af Amer) Random Glucose Hemoglobin A1c Calcium Ferritin Total Bilirubin 1.5 H Direct Bilirubin 0.9 H GGT 32 AST 26 ALT 22 Alkaline Phosphatase 69 Ammonia Total Creatine Kinase CK-MB (Mass) Troponin I Troponin I, Quant NT-Pro-B Natriuret Pep Total Protein 6.6 Albumin 3.5 Globulin 3.1 Albumin/Globulin Ratio 1.1 Vitamin B12 Folate TSH 3rd Generation Stool Occult Blood Blood Type Antibody Screen 01/10/17 01/10/17 01/10/17 14:48 14:48 17:19 WBC RBC Hgb Hct MCV MCH MCHC RDW Plt Count MPV Neut % (Auto) Lymph % (Auto) Winn % (Auto) Eos % (Auto) Baso % (Auto) Neut # Lymph # Winn # Eos # Baso # Retic Count 3.4 H PT INR APTT Sodium Potassium Chloride Carbon Dioxide Anion Gap BUN Creatinine Est GFR ( Amer) Est GFR (Non-Af Amer) Random Glucose Hemoglobin A1c Calcium Ferritin Total Bilirubin Direct Bilirubin GGT AST ALT Alkaline Phosphatase Ammonia < 9 L Total Creatine Kinase 134 CK-MB (Mass) 3.85 H Troponin I Troponin I, Quant 0.0350 NT-Pro-B Natriuret Pep Total Protein Albumin Globulin Albumin/Globulin Ratio Vitamin B12 Folate TSH 3rd Generation Stool Occult Blood Blood Type Antibody Screen 01/10/17 17:19 WBC 8.0 RBC 2.44 L Hgb 6.7 L Hct 21.1 L MCV 86.4 MCH 27.2 MCHC 31.5 L RDW 17.4 H Plt Count 167 MPV 7.3 Neut % (Auto) 66.6 Lymph % (Auto) 15.3 L Winn % (Auto) 16.7 H Eos % (Auto) 0.7 Baso % (Auto) 0.7 Neut # 5.3 Lymph # 1.2 Winn # 1.3 H Eos # 0.1 Baso # 0.1 Retic Count PT INR APTT Sodium Potassium Chloride Carbon Dioxide Anion Gap BUN Creatinine Est GFR ( Amer) Est GFR (Non-Af Amer) Random Glucose Hemoglobin A1c Calcium Ferritin Total Bilirubin Direct Bilirubin GGT AST ALT Alkaline Phosphatase Ammonia Total Creatine Kinase CK-MB (Mass) Troponin I Troponin I, Quant NT-Pro-B Natriuret Pep Total Protein Albumin Globulin Albumin/Globulin Ratio Vitamin B12 Folate TSH 3rd Generation Stool Occult Blood Blood Type Antibody Screen Assessment & Plan - Date & Time Date: 01/10/17 (I have seen and examined the patient. I agree with the findings and plan of care as documented by Dr. Nails. Patient with symptomatic anemia. Left lower extremity bleed. History of diabetes currently not being treated. Consult to wound care and podiatry. Tranfuse 2 units PRBCs. Check iron studies and retic count. Monitor hemodynamic status. Also with history of CHF. Continue home meds. Monitor for acute changes.) Time: 19:14 Attending/Attestation - Attestation I have personally seen and examined this patient.: Yes I have fully participated in the care of the patient.: Yes I have reviewed all pertinent clinical information: Yes
[2017-01-10 07:45] LABS: THYROID STIMULATING HORMONE 3.19 mIU/L (0.46-4.68)
[2017-01-10] MEDS ORDERED: Phytonadione 2.5 MG/0.5 TAB TAB PO ONE (08:01)
[2017-01-10 08:19] LABS: FOLATE 10.5 ng/mL
[2017-01-10 08:28] LABS: INR 1.5
--- NOTE | 2017-01-10 08:54 | RAD ---
PROCEDURE: CHEST RADIOGRAPH, 1 VIEW HISTORY: r/o infiltrate COMPARISON: 04/25/2016 FINDINGS: LUNGS: Moderate loculated right pleural effusion with prominent consolidative changes in the right mid to lower lung zone as well as prominent atelectatic changes in the right mid to lower lung zone. Venous congestion. Milder patchy opacification at the left lung base. PLEURA: As above. CARDIOVASCULAR: Cardiomegaly. Left-sided pacemaker. OSSEOUS STRUCTURES: Degenerative changes in the left shoulder. VISUALIZED UPPER ABDOMEN: Normal. OTHER FINDINGS: None. IMPRESSION: Moderate loculated right pleural effusion with prominent consolidative changes in the right mid to lower lung zone as well as prominent atelectatic changes in the right mid to lower lung zone. Venous congestion. Milder patchy opacification at the left lung base.
--- NOTE | 2017-01-10 11:41 | CP.PCM.CON ---
History of Present Illness - History of Present Illness History of Present Illness: 66 year old male patient with PMHx of Defivrillator, CHF, HTN was seen at bedside this morning after request for podiatry consultation. Patient presents with bleeding from right 5th digit nail bed. Patient states that he noticed active bleeding form right 5th digit 2 days ago, which had never happened in the past. Patient denies of any trauma to his right foot. Patient denies of any pain to the right 5th digit. Patient denies of any N/V/F/C associated with the bleeding. Past Patient History - Past Medical History & Family History Past Medical History?: Yes - Past Social History Smoking Status: Never Smoked - CARDIAC Hx Congestive Heart Failure: Yes Hx Hypercholesterolemia: Yes Hx Hypertension: Yes Hx Pacemaker: Yes (pt states only defibrillator) - PULMONARY Hx Respiratory Disorders: No - NEUROLOGICAL Hx Neurological Disorder: No - HEENT Hx HEENT Problems: No - RENAL Hx Chronic Kidney Disease: No - ENDOCRINE/METABOLIC Hx Diabetes Mellitus Type 2: Yes - HEMATOLOGICAL/ONCOLOGICAL Hx Blood Disorders: No - INTEGUMENTARY Hx Dermatological Problems: No - MUSCULOSKELETAL/RHEUMATOLOGICAL Hx Arthritis: Yes Hx Falls: Yes - GASTROINTESTINAL Hx Gastrointestinal Disorders: No Other/Comment: ascites - GENITOURINARY/GYNECOLOGICAL Hx Genitourinary Disorders: No - PSYCHIATRIC Hx Psychophysiologic Disorder: No Hx Substance Use: No - SURGICAL HISTORY Hx Appendectomy: Yes - ANESTHESIA Hx Anesthesia: Yes Hx Anesthesia Reactions: No Meds Allergies/Adverse Reactions: Allergies Allergy/AdvReac Type Severity Reaction Status Date / Time No Known Allergies Allergy Verified 11/02/16 16:19 - Medications Medications: Current Medications Aspirin (Ecotrin) 81 mg PO DAILY [facility] Last Admin: 01/10/17 10:59 Dose: 81 mg Famotidine (Pepcid) 20 mg PO DAILY [facility] Last Admin: 01/10/17 10:59 Dose: 20 mg Furosemide (Lasix) 40 mg IVP DAILY [facility] Sacubitril/Valsartan (Entresto 24 Mg-26 Mg) 1 tab PO DAILY [facility] Physical Exam - Constitutional Appears: Well, Non-toxic, No Acute Distress - Head Exam Head Exam: ATRAUMATIC - Extremities Exam Additional comments: bilateral lower extremity exam DERM: No open wound noted to bilateral feet including digits and nails. No drainage is noted, no active bleeding is noted. No purulent drainage is noted. No mal-odor noted. No sign of acute infection is noted to bilateral feet. Dried blood noted to right 5th digit nail, as well as to Left foot all 5 nails. All nails are intact and are not loose. VASC: Non-palpable DP and PT noted bilaterally. 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 Decreased ankle dorsiflexion noted to bilateral ankle <15'. Decreased ROm noted to bilateral MTPJ NEURO: Gross sensation intact - Neurological Exam Neurological exam: Alert, Oriented x3 - Psychiatric Exam Psychiatric exam: Normal Affect, Normal Mood - Skin Skin Exam: Normal Color, Warm Results - Vital Signs Recent Vital Signs: Last Vital Signs Temp 97.8 F 01/10/17 08:40 Pulse 86 01/10/17 08:40 Resp 20 01/10/17 08:40 BP 136/67 01/10/17 08:40 Pulse Ox 95 01/10/17 08:40 - Labs Result Diagrams: 01/10/17 03:29 01/10/17 03:29 Labs: Laboratory Results - last 24 hr 01/10/17 01/10/17 01/10/17 03:29 03:29 03:45 WBC 9.4 D RBC 2.49 L Hgb 6.8 L D Hct 21.3 L MCV 85.5 MCH 27.5 MCHC 32.2 L RDW 18.2 H Plt Count 186 MPV 7.3 Neut % (Auto) 68.3 Lymph % (Auto) 14.0 L [place] % (Auto) 16.0 H Eos % (Auto) 0.9 Baso % (Auto) 0.8 Neut # 6.5 Lymph # 1.3 [place] # 1.5 H Eos # 0.1 Baso # 0.1 PT INR APTT Sodium 135 Potassium 4.5 Chloride 100 Carbon Dioxide 24 Anion Gap 15 BUN 23 H Creatinine 1.0 Est GFR ( Amer) > 60 Est GFR (Non-Af Amer) > 60 Random Glucose 98 Hemoglobin A1c Calcium 7.6 L Ferritin Total Bilirubin 0.8 AST 19 ALT 26 Alkaline Phosphatase 74 Troponin I 0.0350 NT-Pro-B Natriuret Pep 7030 H Total Protein 7.5 Albumin 3.3 L Globulin 4.2 H Albumin/Globulin Ratio 0.8 L Vitamin B12 Folate TSH 3rd Generation Stool Occult Blood Blood Type A POSITIVE Antibody Screen Negative 01/10/17 01/10/17 01/10/17 05:01 06:57 07:02 WBC RBC Hgb Hct MCV MCH MCHC RDW Plt Count MPV Neut % (Auto) Lymph % (Auto) [place] % (Auto) Eos % (Auto) Baso % (Auto) Neut # Lymph # [place] # Eos # Baso # PT INR APTT Sodium Potassium Chloride Carbon Dioxide Anion Gap BUN Creatinine Est GFR ( Amer) Est GFR (Non-Af Amer) Random Glucose Hemoglobin A1c 5.7 Calcium Ferritin 18.3 Total Bilirubin AST ALT Alkaline Phosphatase Troponin I NT-Pro-B Natriuret Pep Total Protein Albumin Globulin Albumin/Globulin Ratio Vitamin B12 647 Folate 10.5 TSH 3rd Generation 3.19 Stool Occult Blood Negative Blood Type Antibody Screen 01/10/17 08:10 WBC RBC Hgb Hct MCV MCH MCHC RDW Plt Count MPV Neut % (Auto) Lymph % (Auto) [place] % (Auto) Eos % (Auto) Baso % (Auto) Neut # Lymph # [place] # Eos # Baso # PT 17.6 H INR 1.5 APTT 32 Sodium Potassium Chloride Carbon Dioxide Anion Gap BUN Creatinine Est GFR ( Amer) Est GFR (Non-Af Amer) Random Glucose Hemoglobin A1c Calcium Ferritin Total Bilirubin AST ALT Alkaline Phosphatase Troponin I NT-Pro-B Natriuret Pep Total Protein Albumin Globulin Albumin/Globulin Ratio Vitamin B12 Folate TSH 3rd Generation Stool Occult Blood Blood Type Antibody Screen Assessment & Plan - Assessment and Plan (Free Text) Assessment: 66yo male patient presenting with right foot 5th digit bleeding from nail Plan: Patient was seen, examined at bedside discussed in detail with attending Dr. Meza labs and vitals reviewed; afebrile, WBC 9.4 Xrays bilateral feet ordered - pending Right foot dressed with Betadine, DSD Left foot cleansed with sterile normal saline solution Podiatry will continue to follow inhouse
[2017-01-10 12:04] LABS: INR 1.4
--- NOTE | 2017-01-10 12:04 | CP.PCM.CON ---
<Crissy Pierce - Last Filed: 01/10/17 14:16> History of Present Illness - History of Present Illness History of Present Illness: Pulmonology Consult Note for Dr. Lopez's Service Reason for Consult: " pleural effusion " HPI: 66M with PMHx of Defibrillator, hypertension, and CHF, presented to the ED with complaints that his right foot won't stop bleeding. Patient being evaluated by podiatry and being transfused blood due to acute blood loss. Patient reports he has had 9 liters of fluid removed from his right lung within the past year [place] [facility] [place] He is not aware of the reasoning for these recurrent pleural effusions.Will follow up CT chest, possible thoracentesis pending findings. Admits to SOB, fatigue, palpitations. Denied fever, chills, headache, chest pain, abdominal pain, n/v/d/c, or urinary symptoms. 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 Patient denied illicit drug use. Patient stated he smoked "during the 70s" but does not smoke anymore. Patient states he occasionally has a glass of wine with dinner. FHx: Unremarkable PMD: Dr. Rock Wardrobe Manager: Dr. Antonio Past Patient History - Past Medical History & Family History Past Medical History?: Yes - Past Social History Smoking Status: Never Smoked - CARDIAC Hx Congestive Heart Failure: Yes Hx Hypercholesterolemia: Yes Hx Hypertension: Yes Hx Pacemaker: Yes (pt states only defibrillator) - PULMONARY Hx Respiratory Disorders: No - NEUROLOGICAL Hx Neurological Disorder: No - HEENT Hx HEENT Problems: No - RENAL Hx Chronic Kidney Disease: No - ENDOCRINE/METABOLIC Hx Diabetes Mellitus Type 2: Yes - HEMATOLOGICAL/ONCOLOGICAL Hx Blood Disorders: No - INTEGUMENTARY Hx Dermatological Problems: No - MUSCULOSKELETAL/RHEUMATOLOGICAL Hx Arthritis: Yes Hx Falls: Yes - GASTROINTESTINAL Hx Gastrointestinal Disorders: No Other/Comment: ascites - GENITOURINARY/GYNECOLOGICAL Hx Genitourinary Disorders: No - PSYCHIATRIC Hx Psychophysiologic Disorder: No Hx Substance Use: No - SURGICAL HISTORY Hx Appendectomy: Yes - ANESTHESIA Hx Anesthesia: Yes Hx Anesthesia Reactions: No Meds Allergies/Adverse Reactions: Allergies Allergy/AdvReac Type Severity Reaction Status Date / Time No Known Allergies Allergy Verified 11/02/16 16:19 - Medications Medications: Current Medications Aspirin (Ecotrin) 81 mg PO DAILY [facility] Last Admin: 01/10/17 10:59 Dose: 81 mg Famotidine (Pepcid) 20 mg PO DAILY [facility] Last Admin: 01/10/17 10:59 Dose: 20 mg Furosemide (Lasix) 40 mg IVP DAILY [facility] Sacubitril/Valsartan (Entresto 24 Mg-26 Mg) 1 tab PO DAILY [facility] Physical Exam - Constitutional Appears: No Acute Distress - Head Exam Head Exam: NORMAL INSPECTION, NORMOCEPHALIC - Eye Exam Eye Exam: EOMI, PERRL. absent: Normal appearance (Conjunctival pallor ) - ENT Exam ENT Exam: Mucous Membranes Dry Additional comments: pallor noted under tongue - Respiratory Exam Respiratory Exam: Decreased Breath Sounds (R>L), NORMAL BREATHING PATTERN - Cardiovascular Exam Cardiovascular Exam: REGULAR RHYTHM - GI/Abdominal Exam GI & Abdominal Exam: Normal Bowel Sounds, Soft. absent: Distended, Tenderness - Extremities Exam Extremities exam: Positive for: normal inspection, pedal pulses present. Negative for: pedal edema, tenderness Additional comments: DERM: No open wound noted to bilateral feet including digits and nails. No drainage is noted, no active bleeding is noted. No purulent drainage is noted. No mal-odor noted. No sign of acute infection is noted to bilateral feet. Dried blood noted to right 5th digit nail, as well as to Left foot all 5 nails. All nails are intact and are not loose. VASC: Non-palpable DP and PT noted bilaterally. 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 Decreased ankle dorsiflexion noted to bilateral ankle <15'. Decreased ROm noted to bilateral MTPJ NEURO: Gross sensation intact - Neurological Exam Neurological exam: Alert, Oriented x3 - Psychiatric Exam Psychiatric exam: Normal Affect, Normal Mood - Skin Skin Exam: Dry, Intact, Pallor, Pallor, Warm Results - Vital Signs Recent Vital Signs: Last Vital Signs Temp 97.8 F 01/10/17 08:40 Pulse 86 01/10/17 08:40 Resp 20 01/10/17 08:40 BP 136/67 01/10/17 08:40 Pulse Ox 95 01/10/17 08:40 - Labs Result Diagrams: 01/10/17 03:29 01/10/17 03:29 Labs: Laboratory Results - last 24 hr 01/10/17 01/10/17 01/10/17 03:29 03:29 03:45 WBC 9.4 D RBC 2.49 L Hgb 6.8 L D Hct 21.3 L MCV 85.5 MCH 27.5 MCHC 32.2 L RDW 18.2 H Plt Count 186 MPV 7.3 Neut % (Auto) 68.3 Lymph % (Auto) 14.0 L [place] % (Auto) 16.0 H Eos % (Auto) 0.9 Baso % (Auto) 0.8 Neut # 6.5 Lymph # 1.3 [place] # 1.5 H Eos # 0.1 Baso # 0.1 PT INR APTT Sodium 135 Potassium 4.5 Chloride 100 Carbon Dioxide 24 Anion Gap 15 BUN 23 H Creatinine 1.0 Est GFR ( Amer) > 60 Est GFR (Non-Af Amer) > 60 Random Glucose 98 Hemoglobin A1c Calcium 7.6 L Ferritin Total Bilirubin 0.8 AST 19 ALT 26 Alkaline Phosphatase 74 Troponin I 0.0350 NT-Pro-B Natriuret Pep 7030 H Total Protein 7.5 Albumin 3.3 L Globulin 4.2 H Albumin/Globulin Ratio 0.8 L Vitamin B12 Folate TSH 3rd Generation Stool Occult Blood Blood Type A POSITIVE Antibody Screen Negative 01/10/17 01/10/17 01/10/17 05:01 06:57 07:02 WBC RBC Hgb Hct MCV MCH MCHC RDW Plt Count MPV Neut % (Auto) Lymph % (Auto) [place] % (Auto) Eos % (Auto) Baso % (Auto) Neut # Lymph # [place] # Eos # Baso # PT INR APTT Sodium Potassium Chloride Carbon Dioxide Anion Gap BUN Creatinine Est GFR ( Amer) Est GFR (Non-Af Amer) Random Glucose Hemoglobin A1c 5.7 Calcium Ferritin 18.3 Total Bilirubin AST ALT Alkaline Phosphatase Troponin I NT-Pro-B Natriuret Pep Total Protein Albumin Globulin Albumin/Globulin Ratio Vitamin B12 647 Folate 10.5 TSH 3rd Generation 3.19 Stool Occult Blood Negative Blood Type Antibody Screen 01/10/17 08:10 WBC RBC Hgb Hct MCV MCH MCHC RDW Plt Count MPV Neut % (Auto) Lymph % (Auto) [place] % (Auto) Eos % (Auto) Baso % (Auto) Neut # Lymph # [place] # Eos # Baso # PT 17.6 H INR 1.5 APTT 32 Sodium Potassium Chloride Carbon Dioxide Anion Gap BUN Creatinine Est GFR ( Amer) Est GFR (Non-Af Amer) Random Glucose Hemoglobin A1c Calcium Ferritin Total Bilirubin AST ALT Alkaline Phosphatase Troponin I NT-Pro-B Natriuret Pep Total Protein Albumin Globulin Albumin/Globulin Ratio Vitamin B12 Folate TSH 3rd Generation Stool Occult Blood Blood Type Antibody Screen Assessment & Plan - Assessment and Plan (Free Text) Plan: RLL Pleural Effusion Patient reported within this year he had to have a total of 9 L removed from his right lung ([facility] [place] for recurrent pleural effusions CXR 01/10: Moderate loculated right pleural effusion with prominent consolidative changes in the right mid to lower lung zone as well as prominent atelectatic changes in the right mid to lower lung zone. Venous congestion. Milder patchy opacification at the left lung base. F/U Chest W/ Contrast - thoracentesis - pending findings Lasix 40mg IVP daily - monitor blood pressure, pt was hypotensive 2/2 blood loss Duonebs Phenegran Hx Systolic CHF Defibrillator ECHO 2013: LVEF 40-45%, moderate LVH, leads in RA,RV. Systolic function is moderately reduced F/U ECHO Anemia Secondary to acute blood loss Transfuse, baseline hemoglobin 12-13 Hx HTN Hx DM DW Kari Scott DO, PGY-1 <Nate Lopez S - Last Filed: 01/10/17 17:44> Meds - Medications Medications: Current Medications Albuterol/Ipratropium (Duoneb 3 Mg/0.5 Mg (3 Ml) Ud) 3 ml INH RQ6 KAYLEEN Aspirin (Ecotrin) 81 mg PO DAILY [facility] Last Admin: 01/10/17 10:59 Dose: 81 mg Famotidine (Pepcid) 20 mg PO DAILY [facility] Last Admin: 01/10/17 10:59 Dose: 20 mg Furosemide (Lasix) 40 mg IVP DAILY [facility] Promethazine HCl (Phenergan Syrup) 12.5 mg PO Q6 PRN PRN Reason: Cough Sacubitril/Valsartan (Entresto 24 Mg-26 Mg) 1 tab PO DAILY [facility] Last Admin: 01/10/17 12:57 Dose: 1 tab Results - Vital Signs Recent Vital Signs: Last Vital Signs Temp 97.4 F L 01/10/17 16:06 Pulse 77 01/10/17 16:06 Resp 20 01/10/17 16:06 BP 113/58 L 01/10/17 16:06 Pulse Ox 96 01/10/17 16:06 - Labs Result Diagrams: 01/10/17 17:19 01/10/17 03:29 Labs: Laboratory Results - last 24 hr 01/10/17 01/10/17 01/10/17 03:29 03:29 03:45 WBC 9.4 D RBC 2.49 L Hgb 6.8 L D Hct 21.3 L MCV 85.5 MCH 27.5 MCHC 32.2 L RDW 18.2 H Plt Count 186 MPV 7.3 Neut % (Auto) 68.3 Lymph % (Auto) 14.0 L [place] % (Auto) 16.0 H Eos % (Auto) 0.9 Baso % (Auto) 0.8 Neut # 6.5 Lymph # 1.3 [place] # 1.5 H Eos # 0.1 Baso # 0.1 Retic Count PT INR APTT Sodium 135 Potassium 4.5 Chloride 100 Carbon Dioxide 24 Anion Gap 15 BUN 23 H Creatinine 1.0 Est GFR ( Amer) > 60 Est GFR (Non-Af Amer) > 60 Random Glucose 98 Hemoglobin A1c Calcium 7.6 L Ferritin Total Bilirubin 0.8 Direct Bilirubin GGT AST 19 ALT 26 Alkaline Phosphatase 74 Ammonia Total Creatine Kinase CK-MB (Mass) Troponin I 0.0350 Troponin I, Quant NT-Pro-B Natriuret Pep 7030 H Total Protein 7.5 Albumin 3.3 L Globulin 4.2 H Albumin/Globulin Ratio 0.8 L Vitamin B12 Folate TSH 3rd Generation Stool Occult Blood Blood Type A POSITIVE Antibody Screen Negative 01/10/17 01/10/17 01/10/17 05:01 06:57 07:02 WBC RBC Hgb Hct MCV MCH MCHC RDW Plt Count MPV Neut % (Auto) Lymph % (Auto) [place] % (Auto) Eos % (Auto) Baso % (Auto) Neut # Lymph # [place] # Eos # Baso # Retic Count PT INR APTT Sodium Potassium Chloride Carbon Dioxide Anion Gap BUN Creatinine Est GFR ( Amer) Est GFR (Non-Af Amer) Random Glucose Hemoglobin A1c 5.7 Calcium Ferritin 18.3 Total Bilirubin Direct Bilirubin GGT AST ALT Alkaline Phosphatase Ammonia Total Creatine Kinase CK-MB (Mass) Troponin I Troponin I, Quant NT-Pro-B Natriuret Pep Total Protein Albumin Globulin Albumin/Globulin Ratio Vitamin B12 647 Folate 10.5 TSH 3rd Generation 3.19 Stool Occult Blood Negative Blood Type Antibody Screen 01/10/17 01/10/17 01/10/17 08:10 11:44 14:48 WBC RBC Hgb Hct MCV MCH MCHC RDW Plt Count MPV Neut % (Auto) Lymph % (Auto) [place] % (Auto) Eos % (Auto) Baso % (Auto) Neut # Lymph # [place] # Eos # Baso # Retic Count PT 17.6 H 16.5 H INR 1.5 1.4 APTT 32 32 Sodium Potassium Chloride Carbon Dioxide Anion Gap BUN Creatinine Est GFR ( Amer) Est GFR (Non-Af Amer) Random Glucose Hemoglobin A1c Calcium Ferritin Total Bilirubin 1.5 H Direct Bilirubin 0.9 H GGT 32 AST 26 ALT 22 Alkaline Phosphatase 69 Ammonia Total Creatine Kinase CK-MB (Mass) Troponin I Troponin I, Quant NT-Pro-B Natriuret Pep Total Protein 6.6 Albumin 3.5 Globulin 3.1 Albumin/Globulin Ratio 1.1 Vitamin B12 Folate TSH 3rd Generation Stool Occult Blood Blood Type Antibody Screen 01/10/17 01/10/17 01/10/17 14:48 14:48 17:19 WBC RBC Hgb Hct MCV MCH MCHC RDW Plt Count MPV Neut % (Auto) Lymph % (Auto) [place] % (Auto) Eos % (Auto) Baso % (Auto) Neut # Lymph # [place] # Eos # Baso # Retic Count 3.4 H PT INR APTT Sodium Potassium Chloride Carbon Dioxide Anion Gap BUN Creatinine Est GFR ( Amer) Est GFR (Non-Af Amer) Random Glucose Hemoglobin A1c Calcium Ferritin Total Bilirubin Direct Bilirubin GGT AST ALT Alkaline Phosphatase Ammonia < 9 L Total Creatine Kinase 134 CK-MB (Mass) 3.85 H Troponin I Troponin I, Quant 0.0350 NT-Pro-B Natriuret Pep Total Protein Albumin Globulin Albumin/Globulin Ratio Vitamin B12 Folate TSH 3rd Generation Stool Occult Blood Blood Type Antibody Screen 01/10/17 17:19 WBC 8.0 RBC 2.44 L Hgb 6.7 L Hct 21.1 L MCV 86.4 MCH 27.2 MCHC 31.5 L RDW 17.4 H Plt Count 167 MPV 7.3 Neut % (Auto) 66.6 Lymph % (Auto) 15.3 L [place] % (Auto) 16.7 H Eos % (Auto) 0.7 Baso % (Auto) 0.7 Neut # 5.3 Lymph # 1.2 [place] # 1.3 H Eos # 0.1 Baso # 0.1 Retic Count PT INR APTT Sodium Potassium Chloride Carbon Dioxide Anion Gap BUN Creatinine Est GFR ( Amer) Est GFR (Non-Af Amer) Random Glucose Hemoglobin A1c Calcium Ferritin Total Bilirubin Direct Bilirubin GGT AST ALT Alkaline Phosphatase Ammonia Total Creatine Kinase CK-MB (Mass) Troponin I Troponin I, Quant NT-Pro-B Natriuret Pep Total Protein Albumin Globulin Albumin/Globulin Ratio Vitamin B12 Folate TSH 3rd Generation Stool Occult Blood Blood Type Antibody Screen Attending/Attestation - Attestation I have personally seen and examined this patient.: Yes I have fully participated in the care of the patient.: Yes I have reviewed all pertinent clinical information: Yes Notes (Text): 01/10/17 17:41 patient seen and examined. CAT scan of the chest without contrast Continue present treatment
[2017-01-10] MEDS: Sacubitril/Valsartan 24-26mg Tab PO SCH (12:57)
--- NOTE | 2017-01-10 14:44 | CP.PCM.PN ---
<Diana Pradhan - Last Filed: 01/10/17 15:56> Subjective - Date & Time of Evaluation Date of Evaluation: 01/10/17 Time of Evaluation: 14:44 - Subjective Subjective: Medicine Note for Dr. Khan Patient seen and examined at bedside. Patient was sitting at bedside with his feet dangling over the bed. The right foot just stopped bleeding per nursing. There was blood on the floor surrounding his foot. Patient says he does not recal any trauma or prior scab on the foot. He is also complaining of SOB and cough that started this morning. he denies fever, chills, chest pain, palpitations, AP, N&V, diarrhea, contipation, leg pain, leg swelling, loss of sensation in LEs, and motor dysfunction of LEs. Objective - Vital Signs/Intake and Output Vital Signs (last 24 hours): Temp Pulse Resp BP Pulse Ox 97.8 F 86 20 136/67 95 01/10/17 08:40 01/10/17 08:40 01/10/17 08:40 01/10/17 08:40 01/10/17 08:40 - Medications Medications: Current Medications Albuterol/Ipratropium (Duoneb 3 Mg/0.5 Mg (3 Ml) Ud) 3 ml INH RQ6 [facility] Aspirin (Ecotrin) 81 mg PO DAILY [facility] Last Admin: 01/10/17 10:59 Dose: 81 mg Famotidine (Pepcid) 20 mg PO DAILY [facility] Last Admin: 01/10/17 10:59 Dose: 20 mg Furosemide (Lasix) 40 mg IVP DAILY [facility] Promethazine HCl (Phenergan Syrup) 12.5 mg PO Q6 PRN PRN Reason: Cough Sacubitril/Valsartan (Entresto 24 Mg-26 Mg) 1 tab PO DAILY [facility] Last Admin: 01/10/17 12:57 Dose: 1 tab - Labs Labs: 01/10/17 03:29 01/10/17 03:29 PT 16.5 SECONDS (9.7-12.2) H 01/10/17 11:44 INR 1.4 01/10/17 11:44 APTT 32 SECONDS (21-34) 01/10/17 11:44 - Constitutional Appears: Non-toxic, No Acute Distress - Head Exam Head Exam: NORMAL INSPECTION - Eye Exam Eye Exam: EOMI, Normal appearance - ENT Exam ENT Exam: Mucous Membranes Moist - Respiratory Exam Respiratory Exam: Decreased Breath Sounds (right lung base ), NORMAL BREATHING PATTERN. absent: Accessory Muscle Use, Rhonchi, Wheezes, Respiratory Distress - Cardiovascular Exam Cardiovascular Exam: REGULAR RHYTHM, +S1, +S2. absent: Bradycardia, Tachycardia , Murmur - GI/Abdominal Exam GI & Abdominal Exam: Soft, Normal Bowel Sounds. absent: Distended, Tenderness - Extremities Exam Additional comments: right foot wrapped in compression bandage with blood on the floor surrounding sensation in tact b/l motor strength 5/5 b/l in feet shiny skin appearance of shins b/l - Neurological Exam Neurological Exam: Alert, Awake - Psychiatric Exam Psychiatric exam: absent: Normal Affect, Normal Mood - Skin Skin Exam: Dry, Normal Color, Warm Assessment and Plan - Assessment and Plan (Free Text) Plan: Acute Anemia possibly secondary to right lower extremity bleed * Likely 2/2 history of cirrhosis * H/H on admission (01/10): 6.8/21.3 * Type and Cross: A+, Ab negative * 2 units of PRBC ordered * f/u CBC 16:00 (10:00 not collected) * stool occult blood: negative * PT 17.6 (H), PTT 32, ferritin 18.3, folate 10.5, B12 647 * TSH 3.19 * f/u reticulocyte count, Factor V, Factor VII, Factor VIII, Factor IX, Factor X , vWF, Vit K, liver panel, GGT Left Lower Extremity bleed * Podiatry Consult: Dr. Meza - help appreciated * Previous history of diabetes was removed from medications 6 months prior by primary physician * f/u hA1c History of Cirrhosis * likely causing coagulopathy * ammonia level < 9 * Hep panel negative Shortness possibly secondary to Anemia vs. History of CHF * Troponin: 0.0350 * Troponin x2 and EKG * Chest x-ray: Moderate loculated right pleural effusion with prominent consolidative changes in the right mid to lower lung zone as well as prominent atelectatic changes in the right mid to lower lung zone. Venous congestion. Milder patchy opacification at the left lung base. * f/u CT chest History of CHF * ECHO (08/10/13):EF 43%; left ventricle is mildly dilated; there is moderate concentric left ventricular hypertrophy; right ventricle is mildly dilated; systolic function is mildly to moderately reduced; the left atrium, is mildly dilated; mitral regurgitation is mild; mild tricuspid regurgitation * Per patient defibrillator was last checked about 1 year prior. He currently does not have the card for the defibrillator * BNP: 7030 * Aspirin 81mg daily * Furosemide 40mg * Entresto (sacubitril/valsartan) 24mg-26mg One tab daily * Losartan Potassium 25mg PO daily Cough * Likely 2/2 pleural effusion seen on CXR * Chest x-ray: Moderate loculated right pleural effusion with prominent consolidative changes in the right mid to lower lung zone as well as prominent atelectatic changes in the right mid to lower lung zone. Venous congestion. Milder patchy opacification at the left lung base. * Pulmonology consulted (Dr. Lopez) - recs appreciated * f/u Chest CT * Robutussin PRN History HTN * Entresto (sacubitril/valsartan) 24mg-26mg One tab daily * Losartan Potassium 25mg PO daily Prophylaxis * Pepcid daily * VTE contraindication due to acute anemia Case discussed with Dr. Bill Pradhan, PGY1 <Leonor Khan - Last Filed: 01/10/17 19:30> Objective - Vital Signs/Intake and Output Vital Signs (last 24 hours): Temp Pulse Resp BP Pulse Ox 97.4 F L 77 20 113/58 L 96 01/10/17 16:06 01/10/17 16:06 01/10/17 16:06 01/10/17 16:06 01/10/17 16:06 - Medications Medications: Current Medications Albuterol/Ipratropium (Duoneb 3 Mg/0.5 Mg (3 Ml) Ud) 3 ml INH RQ6 [facility] Aspirin (Ecotrin) 81 mg PO DAILY [facility] Last Admin: 01/10/17 10:59 Dose: 81 mg Famotidine (Pepcid) 20 mg PO DAILY [facility] Last Admin: 01/10/17 10:59 Dose: 20 mg Furosemide (Lasix) 40 mg IVP DAILY [facility] Promethazine HCl (Phenergan Syrup) 12.5 mg PO Q6 PRN PRN Reason: Cough Sacubitril/Valsartan (Entresto 24 Mg-26 Mg) 1 tab PO DAILY [facility] Last Admin: 01/10/17 12:57 Dose: 1 tab - Labs Labs: 01/10/17 17:19 01/10/17 03:29 PT 16.5 SECONDS (9.7-12.2) H 01/10/17 11:44 INR 1.4 01/10/17 11:44 APTT 32 SECONDS (21-34) 01/10/17 11:44 Attending/Attestation - Attestation I have personally seen and examined this patient.: Yes I have fully participated in the care of the patient.: Yes I have reviewed all pertinent clinical information, including history, physical exam and plan: Yes Notes (Text): This is 66 year old male with past medical history of Defibrillator, hypertension, and CHF, presents to the ED for right foot bleeding. On admission he is anemia and this morning he was seen for bleeding from his foot. 1.Acute anemia due to blood loss Likely cirrhosis induced coagulopathy Blood transfusion VIt K,follow podiatry assessment,follow LFT 2.SOB -secondary to anemia Vs Decompensated systolic heart failure 3. Liver cirrhosis 4.cough 5.HTN 6.Pleural effusion Seen and examined.Agree with the resident's documentation of assessment and plan
[2017-01-10 15:17] LABS: ALB/GLOB RATIO 1.1 (1.0-2.1); BILIRUBIN,DIRECT 0.9 mg/dL (0.0-0.4); BILIRUBIN,TOTAL 1.5 mg/dL (0.2-1.3); TOTAL PROTEIN 6.6 g/dL (6.3-8.3)
[2017-01-10] MEDS ORDERED: Iodixanol 320 MG/ML 100 ML BOTTLE IV ONE (15:45)
[2017-01-10 17:27] LABS: BASO # 0.1 K/uL (0.0-0.2); BASO % 0.7 % (0.0-2.0); EOS # 0.1 K/uL (0.0-0.7); EOS % 0.7 % (0.0-4.0); HEMATOCRIT 21.1 % (35.0-51.0); LYMPH # 1.2 K/uL (1.0-4.3); LYMPH % 15.3 % (20.0-40.0); MEAN CELL VOLUME 86.4 fL (80.0-94.0); MEAN CORPUSCULAR HEMOGLOBIN 27.2 pg (27.0-31.0); MEAN CORPUSCULAR HGB CONC 31.5 g/dL (33.0-37.0); MEAN PLATELET VOLUME 7.3 fL (7.2-11.7); MONO # 1.3 K/uL (0.0-0.8); MONO % 16.7 % (0.0-10.0); NRBC % 0.1 % (0.0-2.0); RED CELL DISTRIBUTION WIDTH 17.4 % (11.5-14.5)
--- NOTE | 2017-01-10 17:48 | CT ---
PROCEDURE: CT Chest with contrast HISTORY: abnormal CXR COMPARISON: January 10, 2017. Single-view chest. Time of the most recent examination: 03:51. 11/04/2016 CT abdomen and pelvis inclusive of the lower thorax. TECHNIQUE: Contiguous axial images were obtained through the chest with intravenous contrast enhancement. Sagittal and coronal reconstructions were performed. IV contrast: Visipaque 321 100 mL. Radiation dose (DLP): mGy-cm. This CT exam was performed using one or more of the following dose reduction techniques: Automated exposure control, adjustment of the mA and/or kV according to patient size, and/or use of iterative reconstruction technique. FINDINGS: LUNGS: Effusion related compressive atelectasis primarily affecting the right lower lobe Unremarkable air left lung. Visualized airway clear. MEDIASTINUM: Unremarkable thoracic aorta. No aneurysm or dissection. Cardiomegaly. No evidence of acute, significant cardiovascular disease. Position/ configuration of pacemaker artery unremarkable. No vascular congestion. No lymphadenopathy. PLEURA: Persists enlarged and partially loculated right pleural BONES: No fracture. No destructive lesion. UPPER ABDOMEN: Cirrhotic liver incompletely visualized. Incompletely visualize low volume ascites OTHER FINDINGS: None. IMPRESSION: Large right partially loculated pleural effusion with compressive atelectasis. Additional benign and/or incidental findings described above.
[2017-01-10] MEDS: Albuterol-Ipratrop 3 mg / 0.5 (3 ml) UD INH SCH (19:00)
[2017-01-11] MEDS: Albuterol-Ipratrop 3 mg / 0.5 (3 ml) UD INH SCH ×3 (01:13→19:05)
--- NOTE | 2017-01-11 01:24 | CARD ---
APPROVED REPORT EXAM: Two-dimensional and M-mode echocardiogram with Doppler and color Doppler. Other Information Quality : GoodRhythm : NSR INDICATION Dyspnea Pleural Effusion Congestive Heart Failure RISK FACTORS Hypertension Hyperlipidemia Diabetes M-Mode DIMENSIONS RVDd4.95 (2.1-3.2cm)Left Atrium (MM)4.82 (2.5-4.0cm) IVSd1.44 (0.7-1.1cm)Aortic Root3.21 (2.2-3.7cm) LVDd4.12 (4.0-5.6cm)Aortic Cusp Exc.1.73 (1.5-2.0cm) PWd1.94 (0.7-1.1cm)FS (%) 16 % LVDs3.46 (2.0-3.8cm)LVEF (%)34 (>50%) Aortic Valve AoV Peak Nlcfcpqw770.2cm/Rebecca Peak GR.9mmHg Mitral Valve MV E Nmafyshx598.8cm/sMV A Okyapfsw15.1cm/sE/A ratio2.7 TDI E/Lateral E'0.0E/Medial E'0.0 Tricuspid Valve TR Peak Qedluzxy479du/sTR Peak Gr.47mjKtVVSC32njUo LEFT VENTRICLE There is mild to moderate concentric left ventricular hypertrophy. Left ventricle systolic function is moderately impaired. The Ejection Fraction is 30-35%. There is moderate septal hypokinesisconsistent with CAD. The left ventricular diastolic function is normal. No left ventricle thrombus noted on this study. RIGHT VENTRICLE The right ventricle is mildly dilated. The right ventricular systolic function is normal. ATRIA The left atrium is moderately dilated. The right atrium is moderately dilated. AORTIC VALVE The aortic valve is thickened. The aortic valve is trileaflet. No aortic regurgitation is present. There is no aortic valvular stenosis. There is no aortic valvular vegetation. MITRAL VALVE Mitral annular calcification is mild. There is no evidence of mitral valve prolapse. There is no mitral valve stenosis. Mitral regurgitation is mild. TRICUSPID VALVE The tricuspid valve is normal in structure. There is mild to moderate tricuspid regurgitation. Right ventricular systolic pressure is estimated at 40-50 mmHg. There is mild-moderate pulmonary hypertension. There is no tricuspid valve prolapse or vegetation. There is no tricuspid valve stenosis. PULMONIC VALVE The pulmonic valve is not well visualized. There is no pulmonic valvular regurgitation. GREAT VESSELS The aortic root is normal in size. The IVC collapses <50% with inspiration. PERICARDIAL EFFUSION There is no pericardial effusion. There is no pleural effusion. <Conclusion> There is mild to moderate concentric left ventricular hypertrophy. Left ventricle systolic function is moderately impaired. The Ejection Fraction is 30-35%. There is moderate septal hypokinesis consistent with CAD. The left ventricular diastolic function is normal. The right ventricle is mildly dilated. The right ventricular systolic function is normal. The left atrium is moderately dilated. The right atrium is moderately dilated. Mitral regurgitation is mild. There is mild to moderate tricuspid regurgitation. There is mild-moderate pulmonary hypertension.
[2017-01-11] MEDS: Promethazine 12.5 mg/10 ml Syrup PO PRN (05:31)
[2017-01-11 07:09] LABS: CHLORIDE 97 mmol/L (98-107); SODIUM 135 mmol/L (132-148)
[2017-01-11 07:10] LABS: POTASSIUM 4.1 mmol/L (3.6-5.2)
[2017-01-11 07:11] LABS: GFR AFRICAN-AMERICAN > 60
[2017-01-11 07:12] LABS: ALB/GLOB RATIO 0.8 (1.0-2.1); ALKALINE PHOSPHATASE 70 U/L (38-126); ALT/SGPT 25 U/L (21-72); AST/SGOT 26 U/L (17-59); BILIRUBIN,TOTAL 1.1 mg/dL (0.2-1.3); BLOOD UREA NITROGEN 22 mg/dL (9-20); CALCIUM 8.1 mg/dl (8.6-10.4); CARBON DIOXIDE 27 mmol/L (22-30); GLUCOSE,RANDOM 117 mg/dL (75-110); PHOSPHOROUS 2.5 mg/dL (2.5-4.5); TOTAL PROTEIN 7.4 g/dL (6.3-8.3)
[2017-01-11 07:13] LABS: MAGNESIUM 1.7 mg/dL (1.6-2.3)
[2017-01-11 07:32] LABS: BASO # 0.1 K/uL (0.0-0.2); BASO % 0.6 % (0.0-2.0); EOS # 0.2 K/uL (0.0-0.7); EOS % 2.6 % (0.0-4.0); HEMATOCRIT 21.5 % (35.0-51.0); LYMPH # 1.5 K/uL (1.0-4.3); LYMPH % 17.9 % (20.0-40.0); MEAN CELL VOLUME 86.5 fL (80.0-94.0); MEAN CORPUSCULAR HGB CONC 32.3 g/dL (33.0-37.0); MEAN PLATELET VOLUME 7.8 fL (7.2-11.7); MONO # 1.3 K/uL (0.0-0.8); MONO % 14.9 % (0.0-10.0); NRBC % 0.1 % (0.0-2.0); RED CELL DISTRIBUTION WIDTH 17.6 % (11.5-14.5); WHITE BLOOD COUNT 8.6 K/uL (4.8-10.8)
--- NOTE | 2017-01-11 09:34 | RAD ---
PROCEDURE: Bilateral Feet Radiographs. HISTORY: r/o fractures COMPARISON: None. FINDINGS: BONES: No evidence of acute displaced fracture nor dislocation. The osseous structures appear intact. Small bilateral plantar calcaneal enthesophyte JOINTS: Mild degenerative osteoarthritis both MTP joints. SOFT TISSUES: Vascular calcifications are present. Soft tissues otherwise appear unremarkable without evidence of air or radiopaque foreign body. OTHER FINDINGS: None. IMPRESSION: No evidence of acute displaced fracture nor dislocation. Mild DJD both MTP joints right greater than left. If symptoms persist or occult fracture suspected clinically recommend repeat radiographs 5-10 days as most fractures should become radiographically evident in this timeframe
--- NOTE | 2017-01-11 10:08 | CP.PCM.PN ---
Subjective - Date & Time of Evaluation Date of Evaluation: 01/11/17 Time of Evaluation: 09:45 - Subjective Subjective: 66 year old male patient was seen at bedside this morning concerning bleeding from right 5th digit nail bed. Patient states that he noticed active bleeding form right 5th digit a few days ago. Patient denies of any trauma to his right foot. Patient denies of any pain to the right 5th digit today. Patient denies of any N/V/F/C today Objective - Vital Signs/Intake and Output Vital Signs (last 24 hours): Temp Pulse Resp BP Pulse Ox 97.4 F L 79 20 112/69 96 01/11/17 07:30 01/11/17 07:30 01/11/17 07:30 01/11/17 07:30 01/11/17 07:30 Intake and Output: 01/11/17 01/11/17 06:59 18:59 Intake Total 500 Balance 500 - Medications Medications: Current Medications Albuterol/Ipratropium (Duoneb 3 Mg/0.5 Mg (3 Ml) Ud) 3 ml INH RQ6 [facility] Last Admin: 01/11/17 07:10 Dose: 3 ml Famotidine (Pepcid) 20 mg PO DAILY [facility] Last Admin: 01/10/17 10:59 Dose: 20 mg Furosemide (Lasix) 40 mg IVP DAILY [facility] Promethazine HCl (Phenergan Syrup) 12.5 mg PO Q6 PRN PRN Reason: Cough Last Admin: 01/11/17 05:31 Dose: 12.5 mg Sacubitril/Valsartan (Entresto 24 Mg-26 Mg) 1 tab PO DAILY [facility] Last Admin: 01/10/17 12:57 Dose: 1 tab - Labs Labs: 01/11/17 06:35 01/11/17 06:35 PT 16.5 SECONDS (9.7-12.2) H 01/10/17 11:44 INR 1.4 01/10/17 11:44 APTT 32 SECONDS (21-34) 01/10/17 11:44 - Constitutional Appears: Well, Non-toxic, No Acute Distress - Head Exam Head Exam: ATRAUMATIC - Extremities Exam Additional comments: bilateral lower extremity exam DERM: Upon examination 01/11, no site of active bleeding is noted. Dressing remains clean dry and intact. No open wound noted to bilateral feet including digits and nails. No drainage is noted, no active bleeding is noted. No purulent drainage is noted. No mal- odor noted. No sign of acute infection is noted to bilateral feet. All nails are intact and are not loose. VASC: Non-palpable DP and PT noted bilaterally. 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 Decreased ankle dorsiflexion noted to bilateral ankle <15'. Decreased ROm noted to bilateral MTPJ NEURO: Gross sensation intact - Neurological Exam Neurological Exam: Alert, Awake, Oriented x3 - Psychiatric Exam Psychiatric exam: Normal Affect, Normal Mood - Skin Skin Exam: Normal Color, Warm Assessment and Plan - Assessment and Plan (Free Text) Assessment: 66yo male patient presenting with right foot 5th digit bleeding from nail Plan: Patient was seen, examined at bedside discussed in detail with attending Dr. Meza labs and vitals reviewed; afebrile, WBC 8.6 Xrays bilateral feet reveals no sign of acute fracture Right foot dressed with Betadine, DSD Podiatry will continue to follow inhouse
--- NOTE | 2017-01-11 12:20 | PCM.SURG1 ---
Surgeon's Initial Post Op Note - Surgeon's Notes Surgeon: Som Randle MD Director Of Customer Acquisition: NONE Type of Anesthesia: Local Pre-Operative Diagnosis: Right pleural effusion Operative Findings: US showed a large left effusion Post-Operative Diagnosis: Right pleural effusion Operation Performed: US guided right thoracentesis Specimen/Specimens Removed: 2 liters Estimated Blood Loss: EBL {In ML}: 1 Blood Products Given: N/A Drains Used: No Drains Post-Op Condition: Fair Date of Surgery/Procedure: 01/11/17 Time of Surgery/Procedure: 12:15
--- NOTE | 2017-01-11 13:02 | RAD ---
HISTORY: Status post right thoracentesis COMPARISON: Comparison chest dated 01/10/2017 FINDINGS: LUNGS: Interval improvement previously noted right lower lobe atelectasis. Small right-sided effusion may have diminished slightly. PLEURA: As above. No pneumothorax apparent. CARDIOVASCULAR: Marked cardiomegaly. No change multi lead pacemaker/defibrillator. OSSEOUS STRUCTURES: No significant abnormalities. VISUALIZED UPPER ABDOMEN: Normal. OTHER FINDINGS: None. IMPRESSION: Interval improvement previously noted right lower lobe atelectasis. Small right-sided effusion may have diminished slightly.
--- NOTE | 2017-01-11 13:08 | CP.PCM.PN ---
Subjective - Date & Time of Evaluation Date of Evaluation: 01/11/17 Time of Evaluation: 12:00 - Subjective Subjective: patient seen and examined status post thoracentesis and almost 2 L fluid removed Breathing better Afebrile No chest pain Objective - Vital Signs/Intake and Output Vital Signs (last 24 hours): Temp Pulse Resp BP Pulse Ox 97.4 F L 79 20 112/69 96 01/11/17 07:30 01/11/17 07:30 01/11/17 07:30 01/11/17 07:30 01/11/17 07:30 Intake and Output: 01/11/17 01/11/17 06:59 18:59 Intake Total 500 Balance 500 - Medications Medications: Current Medications Albuterol/Ipratropium (Duoneb 3 Mg/0.5 Mg (3 Ml) Ud) 3 ml INH RQ6 [facility] Last Admin: 01/11/17 07:10 Dose: 3 ml Famotidine (Pepcid) 20 mg PO DAILY [facility] Last Admin: 01/10/17 10:59 Dose: 20 mg Furosemide (Lasix) 40 mg IVP DAILY [facility] Promethazine HCl (Phenergan Syrup) 12.5 mg PO Q6 PRN PRN Reason: Cough Last Admin: 01/11/17 05:31 Dose: 12.5 mg Sacubitril/Valsartan (Entresto 24 Mg-26 Mg) 1 tab PO DAILY [facility] Last Admin: 01/10/17 12:57 Dose: 1 tab - Labs Labs: 01/11/17 06:35 01/11/17 06:35 PT 16.5 SECONDS (9.7-12.2) H 01/10/17 11:44 INR 1.4 01/10/17 11:44 APTT 32 SECONDS (21-34) 01/10/17 11:44 - Head Exam Head Exam: ATRAUMATIC, NORMOCEPHALIC - ENT Exam ENT Exam: Mucous Membranes Moist - Neck Exam Neck Exam: Normal Inspection - Respiratory Exam Respiratory Exam: Decreased Breath Sounds - Cardiovascular Exam Cardiovascular Exam: REGULAR RHYTHM - GI/Abdominal Exam GI & Abdominal Exam: Soft, Normal Bowel Sounds Assessment and Plan (1) Pleural effusion Assessment & Plan: status post thoracentesis Fluid analysis Transfuse as necessary Status: Acute (2) CHF (congestive heart failure) Status: Acute
[2017-01-11] MEDS: Sacubitril/Valsartan 24-26mg Tab PO SCH (13:53)
[2017-01-11 13:57] LABS: BODY FLUID TYPE PLEURAL/THORACENTESI
--- NOTE | 2017-01-11 14:28 | CP.PCM.PN ---
Subjective - Date & Time of Evaluation Date of Evaluation: 01/11/17 Time of Evaluation: 07:30 - Subjective Subjective: Medcine note for Dr. Khan Patient seen and examined at bedside. patient doing well but saying his IV fell out over night and the nurses had a hard time putting it back in. Patient had to be brought back to his room because he keeps getting out of bed to walk around and making his foot bleed more. Patient says he is purposely trying to make it bleed because he "wants to see where it is coming from". Patient refused 2nd blood transfusion yesterday per nursing. He says he did not refuse so there must be some miscommunication. Patient denies fever, chills, chest pain , abdominal pain, n/v/d/c, and LE pain or swelling. Objective - Vital Signs/Intake and Output Vital Signs (last 24 hours): Temp Pulse Resp BP Pulse Ox 97.4 F L 79 20 122/61 96 01/11/17 07:30 01/11/17 07:30 01/11/17 07:30 01/11/17 13:57 01/11/17 07:30 Intake and Output: 01/11/17 01/11/17 06:59 18:59 Intake Total 500 Balance 500 - Medications Medications: Current Medications Albuterol/Ipratropium (Duoneb 3 Mg/0.5 Mg (3 Ml) Ud) 3 ml INH RQ6 [facility] Last Admin: 01/11/17 07:10 Dose: 3 ml Famotidine (Pepcid) 20 mg PO DAILY [facility] Last Admin: 01/11/17 13:53 Dose: 20 mg Furosemide (Lasix) 40 mg IVP DAILY [facility] Last Admin: 01/11/17 13:57 Dose: 40 mg Promethazine HCl (Phenergan Syrup) 12.5 mg PO Q6 PRN PRN Reason: Cough Last Admin: 01/11/17 05:31 Dose: 12.5 mg Sacubitril/Valsartan (Entresto 24 Mg-26 Mg) 1 tab PO DAILY [facility] Last Admin: 01/11/17 13:53 Dose: 1 tab - Labs Labs: 01/11/17 06:35 01/11/17 06:35 PT 16.5 SECONDS (9.7-12.2) H 01/10/17 11:44 INR 1.4 01/10/17 11:44 APTT 32 SECONDS (21-34) 01/10/17 11:44 Assessment and Plan - Assessment and Plan (Free Text) Plan: Acute Anemia possibly secondary to right lower extremity bleed * Likely 2/2 history of cirrhosis * H/H on admission (01/10): 6.8/21.3 * Type and Cross: A+, Ab negative * 2 units of PRBC ordered - second to be given 01/11 since patient refused on * Trending H&H: * 01/10 post 1U: 6.7 * 01/11: 6.9 * stool occult blood: negative * PT 17.6 (H), PTT 32, ferritin 18.3, folate 10.5, B12 647 * TSH 3.19 * Reticulocyte count: 3.4 * f/u Factor V, Factor VII, Factor VIII, Factor IX, Factor X, vWF, Vit K, liver panel, GGT Left Lower Extremity bleed * Podiatry Consult: Dr. Meza - help appreciated * Previous history of diabetes was removed from medications 6 months prior by primary physician * hA1c 5.7 * Patient instructed to keep foot elevated History of Cirrhosis * likely causing coagulopathy * ammonia level < 9 * Hep panel negative Shortness possibly secondary to Anemia vs. History of CHF * Troponin: 0.0350 * Troponin x2 and EKG * Chest x-ray: Moderate loculated right pleural effusion with prominent consolidative changes in the right mid to lower lung zone as well as prominent atelectatic changes in the right mid to lower lung zone. Venous congestion. Milder patchy opacification at the left lung base. * CT chest: large right pleural effusion with compressive atelectasis * Pleurocentesis done 01/11 History of CHF * ECHO (08/10/13):EF 43%; left ventricle is mildly dilated; there is moderate concentric left ventricular hypertrophy; right ventricle is mildly dilated; systolic function is mildly to moderately reduced; the left atrium, is mildly dilated; mitral regurgitation is mild; mild tricuspid regurgitation * Per patient defibrillator was last checked about 1 year prior. He currently does not have the card for the defibrillator * BNP: 7030 * Aspirin 81mg daily * Furosemide 40mg * Entresto (sacubitril/valsartan) 24mg-26mg One tab daily * Losartan Potassium 25mg PO daily Cough * Likely 2/2 pleural effusion seen on CXR * Chest x-ray: Moderate loculated right pleural effusion with prominent consolidative changes in the right mid to lower lung zone as well as prominent atelectatic changes in the right mid to lower lung zone. Venous congestion. Milder patchy opacification at the left lung base. * Pulmonology consulted (Dr. Lopez) - recs appreciated * Chest CT: see above * Robutussin PRN History HTN * Entresto (sacubitril/valsartan) 24mg-26mg One tab daily * Losartan Potassium 25mg PO daily Prophylaxis * Pepcid daily * VTE contraindication due to acute anemia Case discussed with Dr. Bill Pradhan, PGY1
[2017-01-11 15:31] LABS: BF GROSS APPEARANCE SL CLOUDY (CLEAR)
[2017-01-11 15:32] LABS: BODY FLUID TOTAL COUNT 100 (0-0)
--- NOTE | 2017-01-11 23:44 | CARD ---
APPROVED REPORT EKG Measurement Heart [id number] <Conclusion> Ventricular-paced rhythm Abnormal ECG
--- NOTE | 2017-01-11 23:45 | CARD ---
APPROVED REPORT EKG Measurement Heart [id number] <Conclusion> Ventricular-paced rhythm Abnormal ECG
[2017-01-12] MEDS: Albuterol-Ipratrop 3 mg / 0.5 (3 ml) UD INH SCH ×4 (02:55→19:31)
[2017-01-12 04:02] LABS: CHLORIDE 98 mmol/L (98-107); SODIUM 135 mmol/L (132-148)
[2017-01-12 04:03] LABS: EOS # 1.1 K/uL (0.0-0.7); EOS % 12.3 % (0.0-4.0); HEMATOCRIT 21.4 % (35.0-51.0); LYMPH # 0.3 K/uL (1.0-4.3); LYMPH % 3.5 % (20.0-40.0); MEAN CELL VOLUME 86.6 fL (80.0-94.0); MEAN CORPUSCULAR HEMOGLOBIN 27.2 pg (27.0-31.0); MEAN CORPUSCULAR HGB CONC 31.4 g/dL (33.0-37.0); MEAN PLATELET VOLUME 7.5 fL (7.2-11.7); MONO # 0.1 K/uL (0.0-0.8); MONO % 1.1 % (0.0-10.0); NRBC % 0.2 % (0.0-2.0); PLATELET COUNT 161 K/uL (130-400); POTASSIUM 4.5 mmol/L (3.6-5.2); RED CELL DISTRIBUTION WIDTH 17.1 % (11.5-14.5)
[2017-01-12 04:05] LABS: ALB/GLOB RATIO 0.8 (1.0-2.1); ALKALINE PHOSPHATASE 61 U/L (38-126); ALT/SGPT 30 U/L (21-72); AST/SGOT 18 U/L (17-59); BILIRUBIN,TOTAL 0.7 mg/dL (0.2-1.3); BLOOD UREA NITROGEN 20 mg/dL (9-20); CARBON DIOXIDE 27 mmol/L (22-30); GFR AFRICAN-AMERICAN > 60; GLUCOSE,RANDOM 84 mg/dL (75-110); TOTAL PROTEIN 7.1 g/dL (6.3-8.3)
[2017-01-12 04:06] LABS: CALCIUM 7.6 mg/dl (8.6-10.4); MAGNESIUM 1.6 mg/dL (1.6-2.3); PHOSPHOROUS 3.2 mg/dL (2.5-4.5)
[2017-01-12 05:29] LABS: NEUTROPHIL 63 % (50-75); REACTIVE LYMPHOCYTES 6 % (0-0); TOTAL CELLS COUNTED 100
--- NOTE | 2017-01-12 10:34 | CARD ---
APPROVED REPORT EKG Measurement Heart [id number] <Conclusion> Ventricular-paced rhythm Abnormal ECG
--- NOTE | 2017-01-12 10:35 | CARD ---
APPROVED REPORT EKG Measurement Heart [id number] <Conclusion> Ventricular-paced rhythm Abnormal ECG
[2017-01-12] MEDS: Sacubitril/Valsartan 24-26mg Tab PO SCH (10:52)
--- NOTE | 2017-01-12 13:22 | CP.PCM.PN ---
Subjective - Date & Time of Evaluation Date of Evaluation: 01/12/17 Time of Evaluation: 13:21 - Subjective Subjective: 66 year old male patient was seen at bedside this morning concerning bleeding from right 5th digit nail bed. Patient states that he noticed active bleeding form right 5th digit a few days ago. Patient denies of any trauma to his right foot. Patient denies of any pain to the right 5th digit today. Patient denies of any N/V/F/C today Objective - Vital Signs/Intake and Output Vital Signs (last 24 hours): Temp Pulse Resp BP Pulse Ox 97.5 F L 118 H 20 150/69 94 L 01/12/17 08:25 01/12/17 08:25 01/12/17 08:25 01/12/17 10:51 01/12/17 08:25 Intake and Output: 01/12/17 01/12/17 06:59 18:59 Intake Total 1150 Output Total 200 Balance 950 - Medications Medications: Current Medications Acetaminophen (Tylenol 325mg Tab) 650 mg PO Q6 PRN PRN Reason: Pain, moderate (4-7) Last Admin: 01/11/17 17:27 Dose: 650 mg Albuterol/Ipratropium (Duoneb 3 Mg/0.5 Mg (3 Ml) Ud) 3 ml INH RQ6 KAYLEEN Last Admin: 01/12/17 08:03 Dose: 3 ml Famotidine (Pepcid) 20 mg PO DAILY [facility] Last Admin: 01/12/17 10:51 Dose: 20 mg Furosemide (Lasix) 40 mg IVP DAILY [facility] Last Admin: 01/12/17 10:51 Dose: 40 mg Promethazine HCl (Phenergan Syrup) 12.5 mg PO Q6 PRN PRN Reason: Cough Last Admin: 01/11/17 05:31 Dose: 12.5 mg Sacubitril/Valsartan (Entresto 24 Mg-26 Mg) 1 tab PO DAILY [facility] Last Admin: 01/12/17 10:52 Dose: 1 tab - Labs Labs: 01/12/17 03:51 01/12/17 03:51 PT 16.5 SECONDS (9.7-12.2) H 01/10/17 11:44 INR 1.4 01/10/17 11:44 APTT 32 SECONDS (21-34) 01/10/17 11:44 - Constitutional Appears: Well, Non-toxic, No Acute Distress - Extremities Exam Additional comments: bilateral lower extremity exam DERM: Upon examination 01/11, no site of active bleeding is noted. Dressing remains clean dry and intact. No open wound noted to bilateral feet including digits and nails. No drainage is noted, no active bleeding is noted. No purulent drainage is noted. No mal- odor noted. No sign of acute infection is noted to bilateral feet. All nails are intact and are not loose. VASC: Non-palpable DP and PT noted bilaterally. BLUEPRINT CLERK less than 3 seconds noted to all digits ORTHO: No pain on palpation to right 5th digit. Decreased ankle dorsiflexion noted to bilateral ankle <15'. Decreased ROm noted to bilateral MTPJ NEURO: Gross sensation intact - Neurological Exam Neurological Exam: Alert, Awake, Oriented x3 - Psychiatric Exam Psychiatric exam: Normal Affect, Normal Mood Assessment and Plan - Assessment and Plan (Free Text) Assessment: 66yo male patient presenting with right foot 5th digit bleeding from nail Plan: Patient was seen, examined at bedside discussed in detail with attending Dr. Meza labs and vitals reviewed; afebrile, WBC 9.0 Xrays bilateral feet reveals no sign of acute fracture Right foot dressed with Betadine, DSD no active bleeding noted patient stable from podiatry standpoint Podiatry will continue to follow inhouse
--- NOTE | 2017-01-12 17:25 | CP.PCM.PN ---
Subjective - Date & Time of Evaluation Date of Evaluation: 01/12/17 Time of Evaluation: 11:30 - Subjective Subjective: PGY-1 medicine note. No acute events overnight. Patient was seen and examined at bedside this AM. Patient was resting comfortably in bed watching televsion. Patient states that he noticed active bleeding form right 5th digit a few days ago. Patient denies of any trauma to his right foot. Patient denied chest pain, shortness of breath , abdominal pain, headache, nausea, vomiting, diarrhea, constipation, fever or chills. Objective - Vital Signs/Intake and Output Vital Signs (last 24 hours): Temp Pulse Resp BP Pulse Ox 97.5 F L 118 H 20 110/67 94 L 01/12/17 08:25 01/12/17 08:25 01/12/17 08:25 01/12/17 14:20 01/12/17 08:25 Intake and Output: 01/12/17 01/12/17 06:59 18:59 Intake Total 1150 Output Total 200 Balance 950 - Medications Medications: Current Medications Acetaminophen (Tylenol 325mg Tab) 650 mg PO Q6 PRN PRN Reason: Pain, moderate (4-7) Last Admin: 01/11/17 17:27 Dose: 650 mg Albuterol/Ipratropium (Duoneb 3 Mg/0.5 Mg (3 Ml) Ud) 3 ml INH RQ6 KAYLEEN Last Admin: 01/12/17 13:25 Dose: Not Given Famotidine (Pepcid) 20 mg PO DAILY [facility] Last Admin: 01/12/17 10:51 Dose: 20 mg Furosemide (Lasix) 40 mg IVP DAILY [facility] Last Admin: 01/12/17 10:51 Dose: 40 mg Promethazine HCl (Phenergan Syrup) 12.5 mg PO Q6 PRN PRN Reason: Cough Last Admin: 01/11/17 05:31 Dose: 12.5 mg Sacubitril/Valsartan (Entresto 24 Mg-26 Mg) 1 tab PO DAILY [facility] Last Admin: 01/12/17 10:52 Dose: 1 tab - Labs Labs: 01/12/17 03:51 01/12/17 03:51 PT 16.5 SECONDS (9.7-12.2) H 01/10/17 11:44 INR 1.4 01/10/17 11:44 APTT 32 SECONDS (21-34) 01/10/17 11:44 - Additional Findings Additional findings: - Constitutional Appears: Non-toxic, No Acute Distress - Head Exam Head Exam: NORMAL INSPECTION - Eye Exam Eye Exam: EOMI, Normal appearance - ENT Exam ENT Exam: Mucous Membranes Moist - Respiratory Exam Respiratory Exam: Decreased Breath Sounds (right lung base ), NORMAL BREATHING PATTERN. absent: Accessory Muscle Use, Rhonchi, Wheezes, Respiratory Distress - Cardiovascular Exam Cardiovascular Exam: REGULAR RHYTHM, +S1, +S2. absent: Bradycardia, Tachycardia , Murmur - GI/Abdominal Exam GI & Abdominal Exam: Soft, Normal Bowel Sounds. absent: Distended, Tenderness - Extremities Exam Additional comments: right foot wrapped in compression bandage c/d/i sensation in tact b/l motor strength 5/5 b/l in feet shiny skin appearance of shins b/l - Neurological Exam Neurological Exam: Alert, Awake - Psychiatric Exam Psychiatric exam: absent: Normal Affect, Normal Mood - Skin Skin Exam: Dry, Normal Color, Warm Assessment and Plan - Assessment and Plan (Free Text) Assessment: Acute Anemia possibly secondary to right lower extremity bleed * Likely 2/2 history of cirrhosis * H/H on admission (01/10): 6.8/21.3 * Type and Cross: A+, Ab negative * 2 units of PRBC ordered - second to be given 01/11 since patient refused on * Trending H&H: * 01/10 post 1U: 6.7 * 01/11: 6.9 * 3rd unit pRBC given 01/12/17 * stool occult blood: negative * PT 17.6 (H), PTT 32, ferritin 18.3, folate 10.5, B12 647 * TSH 3.19 * Reticulocyte count: 3.4 * f/u Factor V, Factor VII, Factor VIII, Factor IX, Factor X, vWF, Vit K, liver panel, GGT Left Lower Extremity bleed * Podiatry Consult: Dr. Meza - help appreciated * Previous history of diabetes was removed from medications 6 months prior by primary physician * hA1c 5.7 * Patient instructed to keep foot elevated History of Cirrhosis * likely causing coagulopathy * ammonia level < 9 * Hep panel negative Shortness possibly secondary to Anemia vs. History of CHF * Troponin: 0.0350 * Troponin x2 and EKG * Chest x-ray: Moderate loculated right pleural effusion with prominent consolidative changes in the right mid to lower lung zone as well as prominent atelectatic changes in the right mid to lower lung zone. Venous congestion. Milder patchy opacification at the left lung base. * CT chest: large right pleural effusion with compressive atelectasis * Pleurocentesis done 01/11 History of CHF * ECHO (08/10/13):EF 43%; left ventricle is mildly dilated; there is moderate concentric left ventricular hypertrophy; right ventricle is mildly dilated; systolic function is mildly to moderately reduced; the left atrium, is mildly dilated; mitral regurgitation is mild; mild tricuspid regurgitation * Per patient defibrillator was last checked about 1 year prior. He currently does not have the card for the defibrillator * BNP: 7030 * Aspirin 81mg daily * Furosemide 40mg * Entresto (sacubitril/valsartan) 24mg-26mg One tab daily * Losartan Potassium 25mg PO daily Cough * Likely 2/2 pleural effusion seen on CXR * Chest x-ray: Moderate loculated right pleural effusion with prominent consolidative changes in the right mid to lower lung zone as well as prominent atelectatic changes in the right mid to lower lung zone. Venous congestion. Milder patchy opacification at the left lung base. * Pulmonology consulted (Dr. Lopez) - recs appreciated * Chest CT: see above * Robutussin PRN History HTN * Entresto (sacubitril/valsartan) 24mg-26mg One tab daily * Losartan Potassium 25mg PO daily Prophylaxis * Pepcid daily * VTE contraindication due to acute anemia
[2017-01-12 22:55] VITALS: O2SAT 95
[2017-01-13] MEDS: Albuterol-Ipratrop 3 mg / 0.5 (3 ml) UD INH SCH ×4 (02:40→19:37)
[2017-01-13 03:52] VITALS: RESP 20
[2017-01-13 08:51] LABS: BASO % 0.3 % (0.0-2.0); EOS # 0.2 K/uL (0.0-0.7); EOS % 2.7 % (0.0-4.0); HEMATOCRIT 23.1 % (35.0-51.0); LYMPH # 1.6 K/uL (1.0-4.3); MEAN CELL VOLUME 86.5 fL (80.0-94.0); MEAN CORPUSCULAR HEMOGLOBIN 28.1 pg (27.0-31.0); MEAN CORPUSCULAR HGB CONC 32.5 g/dL (33.0-37.0); MEAN PLATELET VOLUME 7.9 fL (7.2-11.7); MONO # 1.2 K/uL (0.0-0.8); MONO % 14.6 % (0.0-10.0); NRBC % 0.5 % (0.0-2.0); RED CELL DISTRIBUTION WIDTH 16.9 % (11.5-14.5); WHITE BLOOD COUNT 8.5 K/uL (4.8-10.8)
[2017-01-13 09:18] LABS: CHLORIDE 96 mmol/L (98-107)
[2017-01-13 09:20] LABS: POTASSIUM 4.1 mmol/L (3.6-5.2); SODIUM 134 mmol/L (132-148)
[2017-01-13 09:22] LABS: ALB/GLOB RATIO 1.1 (1.0-2.1); ALKALINE PHOSPHATASE 66 U/L (38-126); ALT/SGPT 22 U/L (21-72); AST/SGOT 25 U/L (17-59); BILIRUBIN,TOTAL 1.4 mg/dL (0.2-1.3); BLOOD UREA NITROGEN 17 mg/dL (9-20); CARBON DIOXIDE 28 mmol/L (22-30); GFR AFRICAN-AMERICAN > 60; GLUCOSE,RANDOM 112 mg/dL (75-110); PHOSPHOROUS 2.3 mg/dL (2.5-4.5); TOTAL PROTEIN 6.3 g/dL (6.3-8.3)
[2017-01-13 09:23] LABS: CALCIUM 7.8 mg/dl (8.6-10.4); MAGNESIUM 1.5 mg/dL (1.6-2.3)
[2017-01-13] MEDS ORDERED: Sacubitril/Valsartan 24-26mg Tab PO SCH ×2 (10:00→22:00)
[2017-01-13] MEDS: Promethazine 12.5 mg/10 ml Syrup PO PRN (10:54)
--- NOTE | 2017-01-13 13:23 | CP.PCM.DIS ---
<Jeremy Linares - Last Filed: 01/13/17 13:24> Provider - Provider Date of Admission: 01/10/17 04:47 Attending physician: Mundo Verduzco MD Primary care physician: PMD: Dr Rock Consults: Pulmonology - Dr Lopez Podiatry - Dr Meza Time Spent in preparation of Discharge (in minutes): 45 Hospital Course - Lab Results Lab Results: Micro Results 01/11/17 Unknown Pleural Fluid Anaerobic Culture - Final NO ANAEROBES ISOLATED. 01/11/17 Unknown Body Fluid - Pleural Fluid Gram Stain - Final 01/11/17 Unknown Body Fluid - Pleural Fluid Body Fluid Culture - Preliminary NO GROWTH AFTER 2 DAYS 01/10/17 03:45 Blood Blood Culture - Preliminary NO GROWTH AFTER 3 DAYS 01/10/17 03:15 Blood Blood Culture - Preliminary NO GROWTH AFTER 3 DAYS Most Recent Lab Values WBC 8.5 K/uL (4.8-10.8) 01/13/17 08:35 RBC 2.67 Mil/uL (4.40-5.90) L 01/13/17 08:35 Hgb 7.5 g/dL (12.0-18.0) L 01/13/17 08:35 Hct 23.1 % (35.0-51.0) L 01/13/17 08:35 MCV 86.5 fL (80.0-94.0) 01/13/17 08:35 MCH 28.1 pg (27.0-31.0) 01/13/17 08:35 MCHC 32.5 g/dL (33.0-37.0) L 01/13/17 08:35 RDW 16.9 % (11.5-14.5) H 01/13/17 08:35 Plt Count 177 K/uL (130-400) 01/13/17 08:35 MPV 7.9 fL (7.2-11.7) 01/13/17 08:35 Neut % (Auto) 63.4 % (50.0-75.0) 01/13/17 08:35 Lymph % (Auto) 19.0 % (20.0-40.0) L 01/13/17 08:35 Amelia % (Auto) 14.6 % (0.0-10.0) H 01/13/17 08:35 Eos % (Auto) 2.7 % (0.0-4.0) 01/13/17 08:35 Baso % (Auto) 0.3 % (0.0-2.0) 01/13/17 08:35 Neut # 5.4 K/uL (1.8-7.0) 01/13/17 08:35 Lymph # 1.6 K/uL (1.0-4.3) 01/13/17 08:35 Amelia # 1.2 K/uL (0.0-0.8) H 01/13/17 08:35 Eos # 0.2 K/uL (0.0-0.7) 01/13/17 08:35 Baso # 0.0 K/uL (0.0-0.2) 01/13/17 08:35 Neutrophils % (Manual) 63 % (50-75) 01/12/17 03:51 Lymphocytes % (Manual) 22 % (20-40) 01/12/17 03:51 Reactive Lymphs % 6 % (0-0) H 01/12/17 03:51 Monocytes % (Manual) 9 % (0-10) 01/12/17 03:51 Platelet Estimate Normal (NORMAL) 01/12/17 03:51 Hypochromasia (manual) Marked 01/12/17 03:51 Anisocytosis (manual) Marked 01/12/17 03:51 Microcytosis (manual) Marked 01/12/17 03:51 Retic Count 3.4 % (0.5-1.5) H 01/10/17 17:19 PT 16.5 SECONDS (9.7-12.2) H 01/10/17 11:44 INR 1.4 01/10/17 11:44 APTT 32 SECONDS (21-34) 01/10/17 11:44 Sodium 134 mmol/L (132-148) 01/13/17 08:35 Potassium 4.1 mmol/L (3.6-5.2) 01/13/17 08:35 Chloride 96 mmol/L (98-107) L 01/13/17 08:35 Carbon Dioxide 28 mmol/L (22-30) 01/13/17 08:35 Anion Gap 15 (10-20) 01/13/17 08:35 BUN 17 mg/dL (9-20) 01/13/17 08:35 Creatinine 1.0 mg/dL (0.8-1.5) 01/13/17 08:35 Est GFR ( Amer) > 60 01/13/17 08:35 Est GFR (Non-Af Amer) > 60 01/13/17 08:35 POC Glucose (mg/dL) 115 mg/dL (65-110) H 01/13/17 11:27 Random Glucose 112 mg/dL (75-110) H 01/13/17 08:35 Hemoglobin A1c 5.7 % (4.2-6.5) 01/10/17 07:02 Calcium 7.8 mg/dl (8.6-10.4) L 01/13/17 08:35 Phosphorus 2.3 mg/dL (2.5-4.5) L 01/13/17 08:35 Magnesium 1.5 mg/dL (1.6-2.3) L 01/13/17 08:35 Ferritin 18.3 ng/mL 01/10/17 06:57 Total Bilirubin 1.4 mg/dL (0.2-1.3) H 01/13/17 08:35 Direct Bilirubin 0.9 mg/dL (0.0-0.4) H 01/10/17 14:48 GGT 32 U/L (8-78) 01/10/17 14:48 AST 25 U/L (17-59) 01/13/17 08:35 ALT 22 U/L (21-72) 01/13/17 08:35 Alkaline Phosphatase 66 U/L (38-126) 01/13/17 08:35 Ammonia < 9 umol/L (9-33) L 01/10/17 14:48 Total Creatine Kinase 138 U/L (55-170) 01/10/17 19:44 CK-MB (Mass) 4.04 ng/mL (0.0-3.38) H 01/10/17 19:44 Troponin I 0.0350 ng/mL (0.00-0.120) 01/10/17 03:29 Troponin I, Quant 0.0240 ng/mL (0.00-0.120) 01/10/17 19:44 NT-Pro-B Natriuret Pep 7030 pg/mL (0-900) H 01/10/17 03:29 Total Protein 6.3 g/dL (6.3-8.3) 01/13/17 08:35 Albumin 3.2 g/dL (3.5-5.0) L 01/13/17 08:35 Globulin 3.1 gm/dL (2.2-3.9) 01/13/17 08:35 Albumin/Globulin Ratio 1.1 (1.0-2.1) 01/13/17 08:35 Lipase 126 U/L (23-300) 01/11/17 06:35 Vitamin B12 647 pg/mL (239-931) 01/10/17 06:57 Folate 10.5 ng/mL 01/10/17 06:57 TSH 3rd Generation 3.19 mIU/L (0.46-4.68) 01/10/17 06:57 Fluid Source Pleural/thoracentesi 01/11/17 13:56 Fluid Appearance Sl cloudy (CLEAR) 01/11/17 13:56 Fluid WBC 19.0 /mm3 (0.0-300.0) 01/11/17 13:56 Fluid RBC 750.0 /mm3 (0.0-0.0) H 01/11/17 13:56 Fluid Tot Cell Count 100 (0-0) H 01/11/17 13:56 Fluid Neutrophils 12.0 % (0-0) H 01/11/17 13:56 Fluid Lymphocytes 74.0 % (0-0) H 01/11/17 13:56 Fld Monocyte/Macrophag 14 % (0-0) H 01/11/17 13:56 Fluid Comment 01/11/17 13:56 Stool Occult Blood Negative (NEGATIVE) 01/10/17 05:01 Blood Type A POSITIVE 01/10/17 03:45 Antibody Screen Negative 01/10/17 03:45 - Hospital Course Hospital Course: CC: "My foot is bleeding" HPI: 66 year old male with past medical history of Defibrillator, hypertension, and CHF, presents to the ED with complaints that his right foot won't stop bleeding. Two days ago, patient looked down at his foot and noticed it was in a puddle of blood. Patient proceeded to get into the shower and the bleeding stopped after 20 minutes. Yesterday afternoon, patient noticed his foot was bleeding again. Patient got into the shower again to attempt to stop the bleeding; patient stated it took 1 hour for the bleeding to stop. He decided to go to the hospital to have his foot looked at. Patient stated this has never happened before. Patient denied trauma or pain to the foot. Patient states his right foot feels "funny." Patient also complains of weakness and a productive cough that started two days ago. Patient states he has had shortness of breath for 4-5 years since having his pacemaker placed. Patient states he becomes short of breath on exertion and sleeps with one pillow at home. Patient denies short of breath at rest but states when he walked from the bathroom to his bed he had to stop twice to catch his breath while he has been here in the emergency room. Patient denies chest pain, fever, headache, dysuria, or hematachezia. PMD: Dr. Rock Robotype Operator: Dr. 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 Patient denied illicit drug use. Patient stated he smoked "during the 70s" but does not smoke anymore. Patient states he occasionally has a glass of wine with dinner. HOSPITAL COURSE: Patient was admitted with low Hgb. He was transfused 1 unit pRBC on 01/10, 1 unit on 01/11 and 1 unit on 01/12. His FOBT was negative. Other lab markers were checked which included PT 17.6 (H), PTT 32, ferritin 18.3 , folate 10.5, B12 647 Reticulocyte count: 3.4 TSH 3.19. It's possible his anemia was due to a lower extremity bleed. Podiatry was consulted for his left lower extremity bleed. He has a history of cirrhosis which is likely causing coagulopathy which is contributing to his bleeding. His ammonia level was <9 and a hep panel was negative. He was evaluated for shortness of breath (2/2 to anemia vs hx of CHF). His troponins were negative. A Chest CT showed "large right pleural effusion with compressive atelectasis" thus a pleurocentesis was done on 01/11. Blood and pleural fluid cultures/stain were negative/no growth. His home medications were continued to treat his CHF, HTN. Discharge Exam - Additional Findings Additional findings: - Constitutional Appears: Non-toxic, No Acute Distress - Head Exam Head Exam: NORMAL INSPECTION - Eye Exam Eye Exam: EOMI, Normal appearance - ENT Exam ENT Exam: Mucous Membranes Moist - Respiratory Exam Respiratory Exam: Decreased Breath Sounds (right lung base ), NORMAL BREATHING PATTERN. absent: Accessory Muscle Use, Rhonchi, Wheezes, Respiratory Distress - Cardiovascular Exam Cardiovascular Exam: REGULAR RHYTHM, +S1, +S2. absent: Bradycardia, Tachycardia , Murmur - GI/Abdominal Exam GI & Abdominal Exam: Soft, Normal Bowel Sounds. absent: Distended, Tenderness - Extremities Exam Additional comments: right foot wrapped in compression bandage c/d/i sensation in tact b/l motor strength 5/5 b/l in feet shiny skin appearance of shins b/l - Neurological Exam Neurological Exam: Alert, Awake - Psychiatric Exam Psychiatric exam: absent: Normal Affect, Normal Mood - Skin Skin Exam: Dry, Normal Color, Warm Discharge Plan - Follow Up Plan Condition: FAIR Disposition: HOME/ ROUTINE Instructions: Heart Failure (DC), Heart Failure (GEN), Pacemaker (DC), Pacemaker (GEN), Pulmonary Edema (DC), Pulmonary Edema (GEN), Iron Rich Diet (DC ), Ascites (DC), Ascites (GEN) Additional Instructions: Patient is medically stable for discharge. Patient is to see his membership advisor, Dr Christine, (at [facility]) and follow-up with him and follow his recommendations. He has an appointment scheduled next week. Patient is to make an appointment with [place], Dr Meza, (ph: ) and follow-up with her regarding his wound care. Patient is to resume all his home medications. Patient should follow-up with his primary care physician. Referrals: Jose Christine MD [Non-Staff] - Yareli Meza DPM [Staff Provider] - <Leonor Khan - Last Filed: 01/13/17 18:36> Provider - Provider Date of Admission: 01/10/17 04:47 Attending physician: Mundo Verduzco MD Hospital Course - Lab Results Lab Results: Micro Results 01/11/17 Unknown Pleural Fluid Anaerobic Culture - Final NO ANAEROBES ISOLATED. 01/11/17 Unknown Body Fluid - Pleural Fluid Gram Stain - Final 01/11/17 Unknown Body Fluid - Pleural Fluid Body Fluid Culture - Preliminary NO GROWTH AFTER 2 DAYS 01/10/17 03:45 Blood Blood Culture - Preliminary NO GROWTH AFTER 3 DAYS 01/10/17 03:15 Blood Blood Culture - Preliminary NO GROWTH AFTER 3 DAYS Most Recent Lab Values WBC 8.5 K/uL (4.8-10.8) 01/13/17 08:35 RBC 2.67 Mil/uL (4.40-5.90) L 01/13/17 08:35 Hgb 7.5 g/dL (12.0-18.0) L 01/13/17 08:35 Hct 23.1 % (35.0-51.0) L 01/13/17 08:35 MCV 86.5 fL (80.0-94.0) 01/13/17 08:35 MCH 28.1 pg (27.0-31.0) 01/13/17 08:35 MCHC 32.5 g/dL (33.0-37.0) L 01/13/17 08:35 RDW 16.9 % (11.5-14.5) H 01/13/17 08:35 Plt Count 177 K/uL (130-400) 01/13/17 08:35 MPV 7.9 fL (7.2-11.7) 01/13/17 08:35 Neut % (Auto) 63.4 % (50.0-75.0) 01/13/17 08:35 Lymph % (Auto) 19.0 % (20.0-40.0) L 01/13/17 08:35 Amelia % (Auto) 14.6 % (0.0-10.0) H 01/13/17 08:35 Eos % (Auto) 2.7 % (0.0-4.0) 01/13/17 08:35 Baso % (Auto) 0.3 % (0.0-2.0) 01/13/17 08:35 Neut # 5.4 K/uL (1.8-7.0) 01/13/17 08:35 Lymph # 1.6 K/uL (1.0-4.3) 01/13/17 08:35 Amelia # 1.2 K/uL (0.0-0.8) H 01/13/17 08:35 Eos # 0.2 K/uL (0.0-0.7) 01/13/17 08:35 Baso # 0.0 K/uL (0.0-0.2) 01/13/17 08:35 Neutrophils % (Manual) 63 % (50-75) 01/12/17 03:51 Lymphocytes % (Manual) 22 % (20-40) 01/12/17 03:51 Reactive Lymphs % 6 % (0-0) H 01/12/17 03:51 Monocytes % (Manual) 9 % (0-10) 01/12/17 03:51 Platelet Estimate Normal (NORMAL) 01/12/17 03:51 Hypochromasia (manual) Marked 01/12/17 03:51 Anisocytosis (manual) Marked 01/12/17 03:51 Microcytosis (manual) Marked 01/12/17 03:51 Retic Count 3.4 % (0.5-1.5) H 01/10/17 17:19 PT 16.5 SECONDS (9.7-12.2) H 01/10/17 11:44 INR 1.4 01/10/17 11:44 APTT 32 SECONDS (21-34) 01/10/17 11:44 Sodium 134 mmol/L (132-148) 01/13/17 08:35 Potassium 4.1 mmol/L (3.6-5.2) 01/13/17 08:35 Chloride 96 mmol/L (98-107) L 01/13/17 08:35 Carbon Dioxide 28 mmol/L (22-30) 01/13/17 08:35 Anion Gap 15 (10-20) 01/13/17 08:35 BUN 17 mg/dL (9-20) 01/13/17 08:35 Creatinine 1.0 mg/dL (0.8-1.5) 01/13/17 08:35 Est GFR ( Amer) > 60 01/13/17 08:35 Est GFR (Non-Af Amer) > 60 01/13/17 08:35 POC Glucose (mg/dL) 96 mg/dL (65-110) 01/13/17 16:53 Random Glucose 112 mg/dL (75-110) H 01/13/17 08:35 Hemoglobin A1c 5.7 % (4.2-6.5) 01/10/17 07:02 Calcium 7.8 mg/dl (8.6-10.4) L 01/13/17 08:35 Phosphorus 2.3 mg/dL (2.5-4.5) L 01/13/17 08:35 Magnesium 1.5 mg/dL (1.6-2.3) L 01/13/17 08:35 Ferritin 18.3 ng/mL 01/10/17 06:57 Total Bilirubin 1.4 mg/dL (0.2-1.3) H 01/13/17 08:35 Direct Bilirubin 0.9 mg/dL (0.0-0.4) H 01/10/17 14:48 GGT 32 U/L (8-78) 01/10/17 14:48 AST 25 U/L (17-59) 01/13/17 08:35 ALT 22 U/L (21-72) 01/13/17 08:35 Alkaline Phosphatase 66 U/L (38-126) 01/13/17 08:35 Ammonia < 9 umol/L (9-33) L 01/10/17 14:48 Total Creatine Kinase 138 U/L (55-170) 01/10/17 19:44 CK-MB (Mass) 4.04 ng/mL (0.0-3.38) H 01/10/17 19:44 Troponin I 0.0350 ng/mL (0.00-0.120) 01/10/17 03:29 Troponin I, Quant 0.0240 ng/mL (0.00-0.120) 01/10/17 19:44 NT-Pro-B Natriuret Pep 7030 pg/mL (0-900) H 01/10/17 03:29 Total Protein 6.3 g/dL (6.3-8.3) 01/13/17 08:35 Albumin 3.2 g/dL (3.5-5.0) L 01/13/17 08:35 Globulin 3.1 gm/dL (2.2-3.9) 01/13/17 08:35 Albumin/Globulin Ratio 1.1 (1.0-2.1) 01/13/17 08:35 Lipase 126 U/L (23-300) 01/11/17 06:35 Vitamin B12 647 pg/mL (239-931) 01/10/17 06:57 Folate 10.5 ng/mL 01/10/17 06:57 TSH 3rd Generation 3.19 mIU/L (0.46-4.68) 01/10/17 06:57 Fluid Source Pleural/thoracentesi 01/11/17 13:56 Fluid Appearance Sl cloudy (CLEAR) 01/11/17 13:56 Fluid WBC 19.0 /mm3 (0.0-300.0) 01/11/17 13:56 Fluid RBC 750.0 /mm3 (0.0-0.0) H 01/11/17 13:56 Fluid Tot Cell Count 100 (0-0) H 01/11/17 13:56 Fluid Neutrophils 12.0 % (0-0) H 01/11/17 13:56 Fluid Lymphocytes 74.0 % (0-0) H 01/11/17 13:56 Fld Monocyte/Macrophag 14 % (0-0) H 01/11/17 13:56 Fluid Comment 01/11/17 13:56 Stool Occult Blood Negative (NEGATIVE) 01/10/17 05:01 Blood Type A POSITIVE 01/10/17 03:45 Antibody Screen Negative 01/10/17 03:45 Attending/Attestation - Attestation I have personally seen and examined this patient.: Yes I have fully participated in the care of the patient.: Yes I have reviewed all pertinent clinical information, including history, physical exam and plan: Yes Notes (Text): Patient was seen seen and examined,no complain.He has appointment with his membership advisor Dr Christine next week . 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
--- NOTE | 2017-01-13 13:54 | CP.PCM.PN ---
Subjective - Date & Time of Evaluation Date of Evaluation: 01/13/17 Time of Evaluation: 13:53 - Subjective Subjective: 66 year old male patient was seen at bedside this morning concerning bleeding from right 5th digit nail bed. Patient states that he noticed active bleeding form right 5th digit when he came into the hospital. Patient denies of any trauma to his right foot. Patient denies of any pain to the right 5th digit today. Patient denies of any N/V/F/C today Objective - Vital Signs/Intake and Output Vital Signs (last 24 hours): Temp Pulse Resp BP Pulse Ox 97.9 F 73 20 110/61 95 01/13/17 07:17 01/13/17 07:17 01/13/17 07:17 01/13/17 10:51 01/13/17 07:17 Intake and Output: 01/13/17 01/13/17 06:59 18:59 Intake Total 1730 Output Total 700 Balance 1030 - Medications Medications: Current Medications Acetaminophen (Tylenol 325mg Tab) 650 mg PO Q6 PRN PRN Reason: Pain, moderate (4-7) Last Admin: 01/11/17 17:27 Dose: 650 mg Albuterol/Ipratropium (Duoneb 3 Mg/0.5 Mg (3 Ml) Ud) 3 ml INH RQ6 [facility] Last Admin: 01/13/17 13:05 Dose: 3 ml Famotidine (Pepcid) 20 mg PO DAILY [facility] Last Admin: 01/13/17 10:51 Dose: 20 mg Furosemide (Lasix) 40 mg IVP DAILY [facility] Last Admin: 01/13/17 10:51 Dose: 40 mg Home Med (Furosemide [Furosemide]) 40 mg PO DAILY [facility] Losartan Potassium (Cozaar) 25 mg PO DAILY [facility] Potassium Chloride (Klor-Con 10) 10 meq PO BID [facility] Promethazine HCl (Phenergan Syrup) 12.5 mg PO Q6 PRN PRN Reason: Cough Last Admin: 01/13/17 10:54 Dose: 12.5 mg Sacubitril/Valsartan (Entresto 24 Mg-26 Mg) 1 tab PO BID [facility] Last Admin: 01/13/17 10:52 Dose: 1 tab Sacubitril/Valsartan (Entresto 24 Mg-26 Mg) 1 tab PO Q12 [facility] - Labs Labs: 01/13/17 08:35 01/13/17 08:35 PT 16.5 SECONDS (9.7-12.2) H 01/10/17 11:44 INR 1.4 01/10/17 11:44 APTT 32 SECONDS (21-34) 01/10/17 11:44 - Constitutional Appears: Well, Non-toxic, No Acute Distress - Extremities Exam Additional comments: bilateral lower extremity exam DERM: Upon examination 01/11, no site of active bleeding is noted. Dressing remains clean dry and intact. No open wound noted to bilateral feet including digits and nails. No drainage is noted, no active bleeding is noted. No purulent drainage is noted. No mal- odor noted. No sign of acute infection is noted to bilateral feet. All nails are intact and are not loose. VASC: Non-palpable DP and PT noted bilaterally. COMPUTERIZED MILL MILL RECORDER less than 3 seconds noted to all digits ORTHO: No pain on palpation to right 5th digit. Decreased ankle dorsiflexion noted to bilateral ankle <15'. Decreased ROm noted to bilateral MTPJ NEURO: Gross sensation intact - Neurological Exam Neurological Exam: Alert, Awake, Oriented x3 - Psychiatric Exam Psychiatric exam: Normal Affect, Normal Mood Assessment and Plan - Assessment and Plan (Free Text) Assessment: 66yo male patient seen at bedside for follow up of bleeding from right foot Plan: Patient was seen, examined at bedside discussed in detail with attending Dr. Meza labs and vitals reviewed; afebrile, WBC 8.5 Xrays bilateral feet reveals no sign of acute fracture no dressing applied at this time no active bleeding noted patient stable from podiatry standpoint Podiatry will continue to follow inhouse
--- NOTE | 2017-01-13 14:23 | CP.PCM.PN ---
Subjective - Date & Time of Evaluation Date of Evaluation: 01/13/17 Time of Evaluation: 13:30 - Subjective Subjective: the patient seen and examined Still complaining of shortness of breath Status post thoracentesis Slight cough Afebrile No chest pain Objective - Vital Signs/Intake and Output Vital Signs (last 24 hours): Temp Pulse Resp BP Pulse Ox 97.9 F 73 20 110/61 95 01/13/17 07:17 01/13/17 07:17 01/13/17 07:17 01/13/17 10:51 01/13/17 07:17 Intake and Output: 01/13/17 01/13/17 06:59 18:59 Intake Total 1730 600 Output Total 700 200 Balance 1030 400 - Medications Medications: Current Medications Acetaminophen (Tylenol 325mg Tab) 650 mg PO Q6 PRN PRN Reason: Pain, moderate (4-7) Last Admin: 01/11/17 17:27 Dose: 650 mg Albuterol/Ipratropium (Duoneb 3 Mg/0.5 Mg (3 Ml) Ud) 3 ml INH RQ6 [facility] Last Admin: 01/13/17 13:05 Dose: 3 ml Famotidine (Pepcid) 20 mg PO DAILY [facility] Last Admin: 01/13/17 10:51 Dose: 20 mg Furosemide (Lasix) 40 mg IVP DAILY [facility] Last Admin: 01/13/17 10:51 Dose: 40 mg Furosemide (Lasix) 40 mg PO DAILY [facility] Losartan Potassium (Cozaar) 25 mg PO DAILY [facility] Potassium Chloride (Klor-Con 10) 10 meq PO BID [facility] Promethazine HCl (Phenergan Syrup) 12.5 mg PO Q6 PRN PRN Reason: Cough Last Admin: 01/13/17 10:54 Dose: 12.5 mg Sacubitril/Valsartan (Entresto 24 Mg-26 Mg) 1 tab PO Q12 [facility] - Labs Labs: 01/13/17 08:35 01/13/17 08:35 PT 16.5 SECONDS (9.7-12.2) H 01/10/17 11:44 INR 1.4 01/10/17 11:44 APTT 32 SECONDS (21-34) 01/10/17 11:44 - Constitutional Appears: No Acute Distress - Head Exam Head Exam: ATRAUMATIC, NORMOCEPHALIC - Eye Exam Eye Exam: Normal appearance Pupil Exam: PERRL - ENT Exam ENT Exam: Mucous Membranes Moist - Neck Exam Neck Exam: Normal Inspection - Respiratory Exam Respiratory Exam: Decreased Breath Sounds - Cardiovascular Exam Cardiovascular Exam: REGULAR RHYTHM - GI/Abdominal Exam GI & Abdominal Exam: Soft, Normal Bowel Sounds - Extremities Exam Extremities Exam: Pedal Edema Assessment and Plan (1) Pleural effusion Assessment & Plan: Status post thoracentesis Continue diuretics fluid analysis Followup chest x-ray Status: Acute (2) CHF (congestive heart failure) Status: Acute
[2017-01-14] MEDS: Albuterol-Ipratrop 3 mg / 0.5 (3 ml) UD INH SCH ×2 (02:56→07:08)
[2017-01-14] MEDS: Promethazine 12.5 mg/10 ml Syrup PO PRN (03:30)
[2017-01-14 08:54] VITALS: BP 118/66; PULSE 84; TEMP 97.7
[2017-01-14] MEDS ORDERED: Potassium Chloride 10 mEq ER Tab PO SCH (10:00)
[2017-01-14] MEDS ORDERED: Influenza Vaccine 60 mcg/0.5 mL SYR (4YR UP) IM ONE (11:26)
[2017-01-14] MEDS ORDERED: Pneumococcal 23-Valent Vaccine IM ONE (11:26)
--- NOTE | 2017-01-15 12:39 | US ---
PROCEDURE: Date of procedure: 01/11/2017 Procedure: 1. Ultrasound-guided Right thoracentesis, CPT 68018 Medications: 6cc 1% Lidocaine HISTORY: Right pleural effusion, shortness of breath TECHNIQUE: Following informed consent ,the Patients' right chest was marked. Procedure time-out was called, and the patient was placed in the sitting position and limited ultrasound showed a large right effusion. The patient's right back was prepped and draped in the usual sterile fashion. After the skin was anesthetized with lidocaine, a drainage catheter was advanced under ultrasound guidance into the pleural space. Ultrasound-guided thoracentesis was performed. A total of 2000 cubic centimeters of straw-colored fluid removed without complication. A Xeroform dressing was applied. IMPRESSION: Ultrasound guided Right thoracentesis. There were no immediate complications.
[2017-01-15 19:55] LABS: COAG FACTOR VIII ACTIVITY 105 % (50-180)
[2017-01-17 15:15] LABS: VON WILLERBRAND FACTOR AG 106 % (50-217)
== END 2017-01-14 13:30 | disposition home or self-care (01) ==
LOC: C.ER 01:53 → C.9E 04:47 → C.5S 07:41
PROVIDERS: ADMIT Hospitalist; ATTEND Hospitalist
DX: D62 Acute posthemorrhagic anemia (principal); K74.60 Unspecified cirrhosis of liver; D68.4 Acquired coagulation factor deficiency; I11.0 Hypertensive heart disease with heart failure; I50.23 Acute on chronic systolic (congestive) heart failure; J91.8 Pleural effusion in other conditions classified elsewhere; J98.11 Atelectasis; E78.00 Pure hypercholesterolemia, unspecified; E11.9 Type 2 diabetes mellitus without complications; I08.1 Rheumatic disorders of both mitral and tricuspid valves; Z95.810 Presence of automatic (implantable) cardiac defibrillator; Z23 Encounter for immunization
CPT/HCPCS: 32555; 36415; 36430; 71010; 71260; 73630; 80053; 81241; 82042; 82140; 82607; 82728; 82746; 82948; 82977; 83036; 83690; 83735; 83880; 84100; 84443; 84484; 84597; 85025; 85044; 85230; 85240; 85245; 85246; 85247; 85250; 85260; 85610; 85730; 86850; 86900; 86920; 87040; 87070; 87075; 87101; 88104; 88305; 89051; 90674; 90732; 93005; 93306; 94640; 96374; 99285; G0008; G0009; G0328; G0378; J1940; P9051; Q9967

== ENCOUNTER 2017-02-02 13:44 | Inpatient (IN) | payer MEDICARE ==
[2017-02-02 14:06] VITALS: BMI 28.8
--- NOTE | 2017-02-02 14:17 | C.PDOC ---
History Of Present Illness 66 year old male presents to the ED c/o bilateral leg edema, bleeding out of the left 5th toenail, SOB, and reaccumulation of abdominal ascites. Patient had an abdominal paracentesis done to him on January 11 and January [id number]. He also had a abdominal CT done tat revealed abdominal ascites and liver cirrhosis, labs showed hepatic serologies to be negative. Time Seen by Provider: 02/02/17 14:01 Chief Complaint (Nursing): Abnormal Skin Integrity History Per: Patient History/Exam Limitations: no limitations Onset/Duration Of Symptoms: Days Current Symptoms Are (Timing): Still Present Location Of Injury: Anterior: Abdomen Recent travel outside of the [place]: No Additional History Per: Patient Past Medical History Reviewed: Historical Data, Nursing Documentation, Vital Signs Vital Signs: Last Vital Signs Temp 97.7 F 02/02/17 18:55 Pulse 81 02/02/17 18:55 Resp 21 02/02/17 18:55 BP 148/61 02/02/17 19:08 Pulse Ox 95 02/02/17 18:55 - Medical History PMH: Arthritis, CHF, Diabetes, HTN, Hypercholesterolemia Denies: Chronic Kidney Disease Surgical History: Appendectomy, Pacemaker (pt states only defibrillator) - [place] Procedures ASSISTANCE WITH RESPIRATORY VENTILATION, 24-96 HRS, CPAP (01/21/17) DRAINAGE OF PERITONEAL CAVITY, PERCUTANEOUS APPROACH (01/21/17) DRAINAGE OF PERITONEAL CAVITY, PERCUTANEOUS APPROACH, DIAGN (04/26/16) EXCISION OF STOMACH, ENDO, DIAGN (11/03/16) INSPECTION OF LOWER INTESTINAL TRACT, ENDO (11/03/16) TRANSFUSE NONAUT RED BLOOD CELLS IN PERIPH VEIN, PERC (01/21/17) Family History: States: Unknown Family Hx - Social History Hx Tobacco Use: No Hx Alcohol Use: Yes Hx Substance Use: No - Immunization History Hx Tetanus Toxoid Vaccination: Yes Hx Influenza Vaccination: Yes Hx Pneumococcal Vaccination: Yes Review Of Systems Constitutional: Negative for: Fever, Chills Cardiovascular: Negative for: Chest Pain, Palpitations Respiratory: Negative for: Cough, Shortness of Breath Gastrointestinal: Positive for: Other (Abdominal ascites). Negative for: Nausea , Vomiting, Abdominal Pain Neurological: Negative for: Weakness, Numbness Physical Exam - Physical Exam Appears: Non-toxic, No Acute Distress Skin: Normal Color, Warm, Dry Head: Atraumatic, Normacephalic Oral Mucosa: Moist Neck: Normal ROM, Supple Chest: Symmetrical, No Tenderness Cardiovascular: Rhythm Regular, No Murmur Respiratory: Decreased Breath Sounds (Right side), Rhonchi (Mild scattered), Wheezing (Mild scattered) Gastrointestinal/Abdominal: Distention (Protuberant), Ascites (Tense) Extremity: Normal ROM, Pedal Edema (Thick dense) Neurological/Psych: Oriented x3, Normal Speech, Normal Cognition Gait: Steady ED Course And Treatment - Laboratory Results Result Diagrams: 02/02/17 14:57 02/02/17 14:57 Lab Interpretation: Abnormal (mild chronic anemia.) ECG: Interpreted By Me ECG Rhythm: V Paced ECG Interpretation: Normal, No Changes From Prior Rate From EC O2 Sat by Pulse Oximetry: 98 (On RA) Pulse Ox Interpretation: Normal - Radiology CXR: Interpreted by Me CXR Interpretation: Yes: Other (+ mod R pleural effusion) - Other Rad CXR X-Ray: Viewed By Me, Read By Radiologist Interpretation: Chest x-ray two views. History: Pleural effusion. Comparison: 01/21/2017. Findings: Worsening now large right pleural effusion. Moderate venous congestion with consolidative changes in the bilateral hilar regions. Upper lobe granulomatous changes. Cardiomegaly. Left-sided pacemaker. Degenerative changes in the spine and shoulders. Impression: Worsening right pleural effusion. Progress Note: therputic abd paracentesis with Resident Diana Pradhan @ [facility] for approx 1600 cc clear straw colored paracentesis. No labs sent. Well tolerated, no complications. lasix 20 IV given AFTER paracentesis Critical Care Time - Critical Care Note Total Time (in mins): 90 Documented critical care: time excludes all time spent performing seperately billable procedures. Medical Decision Making Medical Decision Making: Impression : 66 y/o male with recurrent abdominal ascites, SOB, bilateral leg edema. Plan: * EKG, CXR, UA, thoracentesis ordered * Albuterol 6 ml INH, Lasix 20 mg IVP, Solumedrol 125 mg IVP given * Blood culture collected recurrent R pleural and abd ascites/effusions prob related to liver cirrhosis, not related to hepatitis (recent serolgies neg) Unclear if pt overdrinking his diuretic regimen or if compliant w meds. Disposition Doctor Will See Patient In The: Hospital Counseled Patient/Family Regarding: Studies Performed, Diagnosis - Disposition Disposition: HOSPITALIZED Disposition Time: 18:53 Condition: GOOD - Clinical Impression Clinical Impression: COPD (chronic obstructive pulmonary disease), Ascites, Pleural effusion on right - Scribe Statement The provider has reviewed the documentation as recorded by the Scribe Gregorio Millard All medical record entries made by the Scribe were at my direction and personally dictated by me. I have reviewed the chart and agree that the record accurately reflects my personal performance of the history, physical exam, medical decision making, and the department course for this patient. I have also personally directed, reviewed, and agree with the discharge instructions and disposition.
[2017-02-02] MEDS ORDERED: Albuterol-Ipratrop 3 mg / 0.5 (3 ml) UD INH STA (14:56)
[2017-02-02] MEDS ORDERED: Albuterol-Ipratrop 3 mg / 0.5 (3 ml) UD ONE ×2 (15:01→15:13)
[2017-02-02 15:02] LABS: BASO % 0.4 % (0.0-2.0); EOS # 0.1 K/uL (0.0-0.7); EOS % 0.8 % (0.0-4.0); HEMATOCRIT 28.3 % (35.0-51.0); LYMPH # 0.9 K/uL (1.0-4.3); LYMPH % 11.9 % (20.0-40.0); MEAN CELL VOLUME 86.1 fL (80.0-94.0); MEAN CORPUSCULAR HEMOGLOBIN 26.2 pg (27.0-31.0); MEAN CORPUSCULAR HGB CONC 30.5 g/dL (33.0-37.0); MEAN PLATELET VOLUME 7.9 fL (7.2-11.7); MONO # 1.4 K/uL (0.0-0.8); MONO % 18.6 % (0.0-10.0); RED CELL DISTRIBUTION WIDTH 18.6 % (11.5-14.5); WHITE BLOOD COUNT 7.5 K/uL (4.8-10.8)
--- NOTE | 2017-02-02 15:05 | RAD ---
Chest x-ray two views History: Pleural effusion. Comparison: 01/21/2017 Findings: Worsening now large right pleural effusion. Moderate venous congestion with consolidative changes in the bilateral hilar regions. Upper lobe granulomatous changes. Cardiomegaly. Left-sided pacemaker. Degenerative changes in the spine and shoulders. Impression: Worsening right pleural effusion.
[2017-02-02 15:11] LABS: INR 1.4
[2017-02-02 15:17] LABS: ALKALINE PHOSPHATASE 74 U/L (38-126); ALT/SGPT 30 U/L (21-72); AST/SGOT 36 U/L (17-59); BILIRUBIN,TOTAL 0.7 mg/dL (0.2-1.3); BLOOD UREA NITROGEN 36 mg/dL (9-20); CALCIUM 7.7 mg/dl (8.6-10.4); CARBON DIOXIDE 29 mmol/L (22-30); CHLORIDE 101 mmol/L (98-107); GFR AFRICAN-AMERICAN > 60; GLUCOSE,RANDOM 71 mg/dL (75-110); POTASSIUM 5.2 mmol/L (3.6-5.2); SODIUM 137 mmol/L (132-148)
[2017-02-02 15:26] LABS: ALB/GLOB RATIO 0.7 (1.0-2.1)
--- NOTE | 2017-02-02 19:00 | PCM.PROC ---
Procedures Attestation:: I certify that I have explained the specified Operation(s) or Procedure(s), risks, benefits and reasonable alternatives to the Patient and/or other person responsible. The opportunity was given to ask questions and all questions answered - Paracentesis Consent Obtained: written consent Time Out Performed: No Indication: Ascites Procedure: therapeutic paracentesis Location: RLQ Local Anesthetic Used: lidocaine 1%
[2017-02-02] MEDS ORDERED: guaiFENesin 100 mg/5 ml Syrup UD PO ONE (23:53)
[2017-02-03 00:31] VITALS: RESP 20
[2017-02-03] MEDS: Potassium Chloride 10 mEq ER Tab PO SCH (09:49)
[2017-02-03] MEDS: Sacubitril/Valsartan 49-51 Tab PO SCH ×2 (09:49→17:29)
--- NOTE | 2017-02-03 12:33 | CP.PCM.HP ---
Past Patient History - Past Medical History & Family History Past Medical History?: Yes - Past Social History Smoking Status: Former Smoker - CARDIAC Hx Congestive Heart Failure: Yes Hx Hypercholesterolemia: Yes Hx Hypertension: Yes Hx Pacemaker: Yes (pt states only defibrillator) - PULMONARY Hx Respiratory Disorders: No - NEUROLOGICAL Hx Neurological Disorder: No - HEENT Hx HEENT Problems: No - RENAL Hx Chronic Kidney Disease: No - ENDOCRINE/METABOLIC Hx Diabetes Mellitus Type 2: Yes - HEMATOLOGICAL/ONCOLOGICAL Hx Blood Disorders: No - INTEGUMENTARY Hx Dermatological Problems: No - MUSCULOSKELETAL/RHEUMATOLOGICAL Hx Falls: No - GASTROINTESTINAL Other/Comment: ascites - GENITOURINARY/GYNECOLOGICAL Hx Genitourinary Disorders: No - PSYCHIATRIC Hx Substance Use: No - SURGICAL HISTORY Hx Appendectomy: Yes - ANESTHESIA Hx Anesthesia: Yes Hx Anesthesia Reactions: No Meds Allergies/Adverse Reactions: Allergies Allergy/AdvReac Type Severity Reaction Status Date / Time No Known Allergies Allergy Verified 01/21/17 22:50 Physical Exam - Constitutional Appears: Well - Head Exam Head Exam: ATRAUMATIC, NORMAL INSPECTION, NORMOCEPHALIC - Eye Exam Eye Exam: EOMI, Normal appearance, PERRL Pupil Exam: NORMAL ACCOMODATION, PERRL - ENT Exam ENT Exam: Mucous Membranes Moist, Normal Exam - Neck Exam Neck exam: Positive for: Normal Inspection - Respiratory Exam Respiratory Exam: Decreased Breath Sounds - Cardiovascular Exam Cardiovascular Exam: REGULAR RHYTHM, +S1, +S2 - GI/Abdominal Exam GI & Abdominal Exam: Diminished Bowel Sounds, Soft - Rectal Exam Rectal Exam: Deferred Results - Vital Signs Recent Vital Signs: Last Vital Signs Temp 97.4 F L 02/03/17 07:51 Pulse 84 02/03/17 07:51 Resp 20 02/03/17 07:51 BP 111/61 02/03/17 09:49 Pulse Ox 97 02/03/17 07:51 - Labs Result Diagrams: 02/02/17 14:57 02/02/17 14:57 Labs: Laboratory Results - last 24 hr 02/02/17 02/02/17 02/02/17 14:57 14:57 14:57 WBC 7.5 RBC 3.29 L Hgb 8.6 L Hct 28.3 L MCV 86.1 MCH 26.2 L MCHC 30.5 L RDW 18.6 H Plt Count 206 MPV 7.9 Neut % (Auto) 68.3 Lymph % (Auto) 11.9 L [place] % (Auto) 18.6 H Eos % (Auto) 0.8 Baso % (Auto) 0.4 Neut # 5.1 Lymph # 0.9 L [place] # 1.4 H Eos # 0.1 Baso # 0.0 PT 15.9 H INR 1.4 APTT 31 Sodium 137 Potassium 5.2 Chloride 101 Carbon Dioxide 29 Anion Gap 12 BUN 36 H Creatinine 1.2 Est GFR ( Amer) > 60 Est GFR (Non-Af Amer) > 60 Random Glucose 71 L Calcium 7.7 L Total Bilirubin 0.7 AST 36 ALT 30 Alkaline Phosphatase 74 Troponin I 0.0250 NT-Pro-B Natriuret Pep 6910 H Total Protein 8.0 Albumin 3.3 L Globulin 4.7 H Albumin/Globulin Ratio 0.7 L
[2017-02-03] MEDS ORDERED: guaiFENesin 200 mg/10 ml Syrup UD PO ONE (14:15)
[2017-02-03 15:29] LABS: RBC URINE < 1 /hpf (0-3); URINE BILIRUBIN NEGATIVE (NEGATIVE); URINE BLOOD NEGATIVE (NEGATIVE); URINE COLOR Straw (YELLOW); URINE GLUCOSE (UA) NORMAL (Normal); URINE KETONE NEGATIVE (NEGATIVE); URINE LEUKOCYTE ESTERASE NEG Leu/uL (Negative); URINE PROTEIN NEGATIVE (NEGATIVE); URINE UROBILINOGEN NORMAL mg/dL (0.2-1.0); WBC URINE < 1 /hpf (0-5)
[2017-02-03] MEDS ORDERED: guaiFENesin 200 mg/10 ml Syrup UD PO STA (19:51)
[2017-02-03] MEDS: Azithromycin 500 MG in Sodium Chloride 0.9% 250 ML IVPB SCH (20:08)
[2017-02-04] MEDS: Promethazine 12.5 mg/10 ml Syrup PO SCH ×5 (00:50→18:00)
[2017-02-04] MEDS: Sacubitril/Valsartan 49-51 Tab PO SCH ×2 (10:32→17:55)
[2017-02-04] MEDS: Potassium Chloride 10 mEq ER Tab PO SCH (10:33)
--- NOTE | 2017-02-04 10:38 | PCM.SURG1 ---
Surgeon's Initial Post Op Note - Surgeon's Notes Surgeon: Som Randle MD Manager Environmental Services: NONE Type of Anesthesia: Local Pre-Operative Diagnosis: Right pleural effusion Operative Findings: US showed a large right effusion Post-Operative Diagnosis: Right pleural effusion Operation Performed: US guided right thoracentesis Specimen/Specimens Removed: 1500 cc of straw colored fluid Estimated Blood Loss: EBL {In ML}: 0 Blood Products Given: N/A Drains Used: No Drains Post-Op Condition: Fair Date of Surgery/Procedure: 02/04/17 Time of Surgery/Procedure: 10:30
[2017-02-04] MEDS: cefTRIAXone IV 1 gm in Dextros 50 ML IVPB SCH (11:31)
[2017-02-04] MEDS: Albuterol-Ipratrop 3 mg / 0.5 (3 ml) UD INH SCH ×2 (14:52→19:23)
--- NOTE | 2017-02-04 15:43 | CP.PCM.CON ---
History of Present Illness - History of Present Illness History of Present Illness: reason for consultation: shortness of breath and pleural effusion 67-year-old male with history of frequent pleural effusion status post thoracentesis, ascites secondary to cirrhosis of liver presented to emergency room complaining of swelling of legs and bleeding off the left fifth toenail, shortness of breath and abdominal distention. Patient recently was admitted at [facility] status post paracentesis. status post thoracentesis today and 1500 cc off straw-colored fluid removed Review of Systems - Review of Systems All systems: reviewed and no additional remarkable complaints except (shortness of breath and abdominal distention) Past Patient History - Past Medical History & Family History Past Medical History?: Yes - Past Social History Smoking Status: Former Smoker - CARDIAC Hx Congestive Heart Failure: Yes Hx Hypercholesterolemia: Yes Hx Hypertension: Yes Hx Pacemaker: Yes (pt states only defibrillator) - PULMONARY Hx Respiratory Disorders: No - NEUROLOGICAL Hx Neurological Disorder: No - HEENT Hx HEENT Problems: No - RENAL Hx Chronic Kidney Disease: No - ENDOCRINE/METABOLIC Hx Diabetes Mellitus Type 2: Yes - HEMATOLOGICAL/ONCOLOGICAL Hx Blood Disorders: No - INTEGUMENTARY Hx Dermatological Problems: No - MUSCULOSKELETAL/RHEUMATOLOGICAL Hx Falls: No - GASTROINTESTINAL Other/Comment: ascites - GENITOURINARY/GYNECOLOGICAL Hx Genitourinary Disorders: No - PSYCHIATRIC Hx Substance Use: No - SURGICAL HISTORY Hx Appendectomy: Yes - ANESTHESIA Hx Anesthesia: Yes Hx Anesthesia Reactions: No Meds Allergies/Adverse Reactions: Allergies Allergy/AdvReac Type Severity Reaction Status Date / Time No Known Allergies Allergy Verified 01/21/17 22:50 - Medications Medications: Current Medications Albuterol/Ipratropium (Duoneb 3 Mg/0.5 Mg (3 Ml) Ud) 3 ml INH RQ6 [facility] Last Admin: 02/04/17 14:52 Dose: Not Given Aspirin (Ecotrin) 81 mg PO DAILY [facility] Last Admin: 02/04/17 10:32 Dose: Not Given Furosemide (Lasix) 40 mg PO DAILY [facility] Last Admin: 02/04/17 10:33 Dose: Not Given Heparin Sodium (Porcine) (Heparin) 5,000 units SC DAILY [facility] Last Admin: 02/04/17 10:32 Dose: Not Given Ceftriaxone Sodium (Rocephin Iv 1 Gm Duplex) 50 mls @ 50 mls/30 min IVPB DAILY [facility] Last Admin: 02/04/17 11:31 Dose: 50 mls/30 min Azithromycin 500 mg/ Sodium (Chloride) 250 mls @ 167 mls/hr IVPB Q24H [facility] Last Admin: 02/03/17 20:08 Dose: 167 mls/hr Losartan Potassium (Cozaar) 25 mg PO DAILY [facility] Last Admin: 02/04/17 10:32 Dose: Not Given Pantoprazole Sodium (Protonix Inj) 40 mg IVP DAILY [facility] Last Admin: 02/04/17 10:33 Dose: Not Given Potassium Chloride (Klor-Con 10) 10 meq PO DAILY [facility] Last Admin: 02/04/17 10:33 Dose: Not Given Promethazine HCl (Phenergan Syrup) 12.5 mg PO Q6 [facility] Last Admin: 02/04/17 11:39 Dose: 12.5 mg Sacubitril/Valsartan (Entresto 49 Mg-51 Mg) 1 tab PO BID [facility] Last Admin: 02/04/17 10:32 Dose: Not Given Physical Exam - Head Exam Head Exam: ATRAUMATIC, NORMOCEPHALIC - ENT Exam ENT Exam: Mucous Membranes Moist - Respiratory Exam Respiratory Exam: Decreased Breath Sounds - Cardiovascular Exam Cardiovascular Exam: REGULAR RHYTHM - GI/Abdominal Exam GI & Abdominal Exam: Distended - Extremities Exam Extremities exam: Positive for: pedal edema Results - Vital Signs Recent Vital Signs: Last Vital Signs Temp 97.6 F 02/04/17 09:34 Pulse 80 02/04/17 09:34 Resp 20 02/04/17 09:34 BP 115/71 02/04/17 09:34 Pulse Ox 96 02/04/17 09:34 - Labs Result Diagrams: 02/02/17 14:57 02/02/17 14:57 Assessment & Plan (1) Pleural effusion on right Status: Acute Comment: pleural effusion on right side is secondary to ascites. Status post thoracentesis. Treat ascites. Does not need chest tube or pleurodesis (2) Ascites Status: Acute (3) Cirrhosis Status: Chronic Priority: Medium
--- NOTE | 2017-02-04 17:24 | CARD ---
APPROVED REPORT EKG Measurement Heart [id number] <Conclusion> Ventricular-paced rhythm Abnormal ECG
--- NOTE | 2017-02-04 18:50 | CP.PCM.PN ---
Subjective - Date & Time of Evaluation Date of Evaluation: 02/04/17 Time of Evaluation: 08:00 - Subjective Subjective: clinically same Objective - Vital Signs/Intake and Output Vital Signs (last 24 hours): Temp Pulse Resp BP Pulse Ox 97.2 F L 64 20 101/61 96 02/04/17 15:00 02/04/17 15:00 02/04/17 15:00 02/04/17 15:00 02/04/17 15:00 Intake and Output: 02/04/17 02/04/17 06:59 18:59 Intake Total 700 240 Balance 700 240 - Medications Medications: Current Medications Albuterol/Ipratropium (Duoneb 3 Mg/0.5 Mg (3 Ml) Ud) 3 ml INH RQ6 [facility] Last Admin: 02/04/17 14:52 Dose: Not Given Aspirin (Ecotrin) 81 mg PO DAILY [facility] Last Admin: 02/04/17 10:32 Dose: Not Given Furosemide (Lasix) 40 mg PO DAILY [facility] Last Admin: 02/04/17 10:33 Dose: Not Given Heparin Sodium (Porcine) (Heparin) 5,000 units SC DAILY [facility] Last Admin: 02/04/17 10:32 Dose: Not Given Ceftriaxone Sodium (Rocephin Iv 1 Gm Duplex) 50 mls @ 50 mls/30 min IVPB DAILY [facility] Last Admin: 02/04/17 11:31 Dose: 50 mls/30 min Azithromycin 500 mg/ Sodium (Chloride) 250 mls @ 167 mls/hr IVPB Q24H [facility] Last Admin: 02/03/17 20:08 Dose: 167 mls/hr Losartan Potassium (Cozaar) 25 mg PO DAILY [facility] Last Admin: 02/04/17 10:32 Dose: Not Given Pantoprazole Sodium (Protonix Inj) 40 mg IVP DAILY [facility] Last Admin: 02/04/17 10:33 Dose: Not Given Potassium Chloride (Klor-Con 10) 10 meq PO DAILY [facility] Last Admin: 02/04/17 10:33 Dose: Not Given Promethazine HCl (Phenergan Syrup) 12.5 mg PO Q6 [facility] Last Admin: 02/04/17 11:39 Dose: 12.5 mg Sacubitril/Valsartan (Entresto 49 Mg-51 Mg) 1 tab PO BID [facility] Last Admin: 02/04/17 17:55 Dose: 1 tab - Labs Labs: 02/02/17 14:57 02/02/17 14:57 PT 15.9 SECONDS (9.7-12.2) H 02/02/17 14:57 INR 1.4 02/02/17 14:57 APTT 31 SECONDS (21-34) 02/02/17 14:57
[2017-02-04] MEDS: Azithromycin 500 MG in Sodium Chloride 0.9% 250 ML IVPB SCH (19:30)
--- NOTE | 2017-02-04 19:54 | CP.PCM.CON ---
History of Present Illness - History of Present Illness History of Present Illness: Podiatry Consult Note- Dr. Meza This is a 67 yo male patient seen at bedside today following request for podiatry consult. Pt states that his right 5th digit toenail began bleeding this past Saturday. He denies any recent trauma, injuries or ulcerations. Says that he came to the ED with complaints of bilateral leg swelling and the 5th toe "would not stop bleeding". Pt denies any pain, discomfort, numbness, tingling to either lower extremity. Of note, pt underwent thoracocentesis today. Denies f/n/v/c/sob/sp/weakness/dizziness. PMH: DM, cirrhosis Review of Systems - Review of Systems Review of Systems: all systems reviewed and found negative outside HPI Past Patient History - Past Medical History & Family History Past Medical History?: Yes - Past Social History Smoking Status: Former Smoker - CARDIAC Hx Congestive Heart Failure: Yes Hx Hypercholesterolemia: Yes Hx Hypertension: Yes Hx Pacemaker: Yes (pt states only defibrillator) - PULMONARY Hx Respiratory Disorders: No - NEUROLOGICAL Hx Neurological Disorder: No - HEENT Hx HEENT Problems: No - RENAL Hx Chronic Kidney Disease: No - ENDOCRINE/METABOLIC Hx Diabetes Mellitus Type 2: Yes - HEMATOLOGICAL/ONCOLOGICAL Hx Blood Disorders: No - INTEGUMENTARY Hx Dermatological Problems: No - MUSCULOSKELETAL/RHEUMATOLOGICAL Hx Falls: No - GASTROINTESTINAL Other/Comment: ascites - GENITOURINARY/GYNECOLOGICAL Hx Genitourinary Disorders: No - PSYCHIATRIC Hx Substance Use: No - SURGICAL HISTORY Hx Appendectomy: Yes - ANESTHESIA Hx Anesthesia: Yes Hx Anesthesia Reactions: No Meds Allergies/Adverse Reactions: Allergies Allergy/AdvReac Type Severity Reaction Status Date / Time No Known Allergies Allergy Verified 01/21/17 22:50 - Medications Medications: Current Medications Albuterol/Ipratropium (Duoneb 3 Mg/0.5 Mg (3 Ml) Ud) 3 ml INH RQ6 [facility] Last Admin: 02/04/17 19:23 Dose: Not Given Aspirin (Ecotrin) 81 mg PO DAILY [facility] Last Admin: 02/04/17 10:32 Dose: Not Given Furosemide (Lasix) 40 mg PO DAILY [facility] Last Admin: 02/04/17 10:33 Dose: Not Given Heparin Sodium (Porcine) (Heparin) 5,000 units SC DAILY [facility] Last Admin: 02/04/17 10:32 Dose: Not Given Ceftriaxone Sodium (Rocephin Iv 1 Gm Duplex) 50 mls @ 50 mls/30 min IVPB DAILY [facility] Last Admin: 02/04/17 11:31 Dose: 50 mls/30 min Azithromycin 500 mg/ Sodium (Chloride) 250 mls @ 167 mls/hr IVPB Q24H [facility] Last Admin: 02/03/17 20:08 Dose: 167 mls/hr Losartan Potassium (Cozaar) 25 mg PO DAILY [facility] Last Admin: 02/04/17 10:32 Dose: Not Given Pantoprazole Sodium (Protonix Inj) 40 mg IVP DAILY [facility] Last Admin: 02/04/17 10:33 Dose: Not Given Potassium Chloride (Klor-Con 10) 10 meq PO DAILY [facility] Last Admin: 02/04/17 10:33 Dose: Not Given Promethazine HCl (Phenergan Syrup) 12.5 mg PO Q6 [facility] Last Admin: 02/04/17 11:39 Dose: 12.5 mg Sacubitril/Valsartan (Entresto 49 Mg-51 Mg) 1 tab PO BID [facility] Last Admin: 02/04/17 17:55 Dose: 1 tab Physical Exam - Constitutional Appears: Non-toxic, No Acute Distress - Extremities Exam Additional comments: BL lower ext exam: VASC- DP pulses palpable BL, PT pulses faintly palpable bl, skin temp runs warm to cool (proximal to distal) bl, cft< 3 sec to all digits, mild pedal edema seen anterior legs and feet bl NEURO- protective pedal sensation is intact bl DERM- no open wounds or ulcerations, no erythema or cellulitis, no areas of fluctuance, all nails trimmed to hygienic length x 10, no interdigitial maceration, no malodor MSK- neg tenderness on palp of right 5th toe - Neurological Exam Neurological exam: Alert, CN II-XII Intact, Oriented x3 - Psychiatric Exam Psychiatric exam: Normal Affect, Normal Mood Results - Vital Signs Recent Vital Signs: Last Vital Signs Temp 97.2 F L 02/04/17 15:00 Pulse 64 02/04/17 15:00 Resp 20 02/04/17 15:00 BP 101/61 02/04/17 15:00 Pulse Ox 96 02/04/17 15:00 - Labs Result Diagrams: 02/02/17 14:57 02/02/17 14:57 Assessment & Plan - Assessment and Plan (Free Text) Assessment: 67 yo diabetic male patient with resolved sanguinous drainage right 5th digit toenail 2/2 unclear etiology Plan: Pt S&E at bedside Discussed with attending Dr. Meza Chart, labs and vitals reviewed Pt stable from podiatry standpoint at this time. Pt may follow up in [facility] podiatry clinic on an outpatient basis Signing off at this time, reconsult as needed thank you for this consult
[2017-02-05] MEDS: Promethazine 12.5 mg/10 ml Syrup PO SCH ×3 (00:44→13:40)
[2017-02-05] MEDS: Albuterol-Ipratrop 3 mg / 0.5 (3 ml) UD INH SCH ×3 (01:16→13:23)
[2017-02-05 08:40] LABS: BASO % 0.4 % (0.0-2.0); EOS # 0.2 K/uL (0.0-0.7); EOS % 1.5 % (0.0-4.0); HEMATOCRIT 28.3 % (35.0-51.0); LYMPH # 1.6 K/uL (1.0-4.3); LYMPH % 16.2 % (20.0-40.0); MEAN CELL VOLUME 85.3 fL (80.0-94.0); MEAN CORPUSCULAR HEMOGLOBIN 26.7 pg (27.0-31.0); MEAN CORPUSCULAR HGB CONC 31.3 g/dL (33.0-37.0); MEAN PLATELET VOLUME 7.6 fL (7.2-11.7); MONO # 1.3 K/uL (0.0-0.8); MONO % 13.6 % (0.0-10.0); NRBC % 0.1 % (0.0-2.0); RED CELL DISTRIBUTION WIDTH 18.1 % (11.5-14.5); WHITE BLOOD COUNT 9.8 K/uL (4.8-10.8)
--- NOTE | 2017-02-05 09:02 | CP.PCM.PN ---
Subjective - Date & Time of Evaluation Date of Evaluation: 02/05/17 Time of Evaluation: 08:00 - Subjective Subjective: clinically same Objective - Vital Signs/Intake and Output Vital Signs (last 24 hours): Temp Pulse Resp BP Pulse Ox 97.9 F 86 20 115/66 94 L 02/05/17 00:00 02/05/17 00:00 02/05/17 00:00 02/05/17 00:00 02/05/17 00:00 Intake and Output: 02/05/17 02/05/17 06:59 18:59 Intake Total 200 Balance 200 - Medications Medications: Current Medications Albuterol/Ipratropium (Duoneb 3 Mg/0.5 Mg (3 Ml) Ud) 3 ml INH RQ6 [facility] Last Admin: 02/05/17 07:37 Dose: 3 ml Aspirin (Ecotrin) 81 mg PO DAILY [facility] Last Admin: 02/04/17 10:32 Dose: Not Given Furosemide (Lasix) 40 mg PO DAILY [facility] Last Admin: 02/04/17 10:33 Dose: Not Given Heparin Sodium (Porcine) (Heparin) 5,000 units SC DAILY [facility] Last Admin: 02/04/17 10:32 Dose: Not Given Ceftriaxone Sodium (Rocephin Iv 1 Gm Duplex) 50 mls @ 50 mls/30 min IVPB DAILY [facility] Last Admin: 02/04/17 11:31 Dose: 50 mls/30 min Azithromycin 500 mg/ Sodium (Chloride) 250 mls @ 167 mls/hr IVPB Q24H [facility] Last Admin: 02/04/17 19:30 Dose: 167 mls/hr Losartan Potassium (Cozaar) 25 mg PO DAILY [facility] Last Admin: 02/04/17 10:32 Dose: Not Given Pantoprazole Sodium (Protonix Inj) 40 mg IVP DAILY [facility] Last Admin: 02/04/17 10:33 Dose: Not Given Potassium Chloride (Klor-Con 10) 10 meq PO DAILY [facility] Last Admin: 02/04/17 10:33 Dose: Not Given Promethazine HCl (Phenergan Syrup) 12.5 mg PO Q6 [facility] Last Admin: 02/05/17 05:11 Dose: 12.5 mg Sacubitril/Valsartan (Entresto 49 Mg-51 Mg) 1 tab PO BID [facility] Last Admin: 02/04/17 17:55 Dose: 1 tab - Labs Labs: 02/05/17 08:30 02/02/17 14:57 PT 15.9 SECONDS (9.7-12.2) H 02/02/17 14:57 INR 1.4 02/02/17 14:57 APTT 31 SECONDS (21-34) 02/02/17 14:57
[2017-02-05 09:04] LABS: BLOOD UREA NITROGEN 29 mg/dL (9-20); CALCIUM 7.7 mg/dl (8.6-10.4); CARBON DIOXIDE 30 mmol/L (22-30); CHLORIDE 98 mmol/L (98-107); GFR AFRICAN-AMERICAN > 60; GLUCOSE,RANDOM 117 mg/dL (75-110); POTASSIUM 4.5 mmol/L (3.6-5.2); SODIUM 137 mmol/L (132-148)
[2017-02-05] MEDS: Potassium Chloride 10 mEq ER Tab PO SCH (10:27)
[2017-02-05] MEDS: Sacubitril/Valsartan 49-51 Tab PO SCH (10:28)
[2017-02-05] MEDS: cefTRIAXone IV 1 gm in Dextros 50 ML IVPB SCH (10:32)
--- NOTE | 2017-02-05 12:24 | US ---
PROCEDURE: Date of procedure: 02/04/2017 Procedure: 1. Ultrasound-guided Right thoracentesis, CPT 20161 Medications: 8cc 1% Lidocaine HISTORY: Right pleural effusion, shortness of breath TECHNIQUE: Following informed consent ,the Patients' right chest was marked. Procedure time-out was called, and the patient was placed in the sitting position and limited ultrasound showed a large right effusion. The patient's right back was prepped and draped in the usual sterile fashion. After the skin was anesthetized with lidocaine, a drainage catheter was advanced under ultrasound guidance into the pleural space. Ultrasound-guided thoracentesis was performed. A total of 1400 cubic centimeters of straw-colored fluid removed without complication. A Xeroform dressing was applied. IMPRESSION: Ultrasound guided Right thoracentesis. There were no immediate complications.
--- NOTE | 2017-02-05 13:33 | PCM.HF ---
Heart Failure Core Measure Angiotensin II Receptor Erlinda Prescribed: Yes Implantable Cardioverter Defibrillator Therapy: Yes Cardiac Resynchronization Therapy Prescribed: No Contraindication/Reason for not providing: has pacemaker - Follow up Will be discharged to: Home Follow Up Date (must be within 7 days from discharge): 02/11/17 Follow Up Time: 09:00
[2017-02-05 16:50] VITALS: BP 106/60; PULSE 82; TEMP 97.8; O2SAT 95
--- NOTE | 2017-02-05 17:08 | CP.PCM.PN ---
Subjective - Date & Time of Evaluation Date of Evaluation: 02/05/17 Time of Evaluation: 11:00 - Subjective Subjective: Alert, orientedx3, no sob, NAD. Objective - Vital Signs/Intake and Output Vital Signs (last 24 hours): Temp Pulse Resp BP Pulse Ox 97.8 F 82 20 106/60 95 02/05/17 15:00 02/05/17 15:00 02/05/17 15:00 02/05/17 15:00 02/05/17 15:00 Intake and Output: 02/05/17 02/05/17 06:59 18:59 Intake Total 200 340 Balance 200 340 - Medications Medications: Current Medications Albuterol/Ipratropium (Duoneb 3 Mg/0.5 Mg (3 Ml) Ud) 3 ml INH RQ6 [facility] Last Admin: 02/05/17 13:23 Dose: Not Given Aspirin (Ecotrin) 81 mg PO DAILY [facility] Last Admin: 02/05/17 10:27 Dose: 81 mg Furosemide (Lasix) 40 mg PO DAILY [facility] Last Admin: 02/05/17 10:28 Dose: 40 mg Heparin Sodium (Porcine) (Heparin) 5,000 units SC DAILY [facility] Last Admin: 02/05/17 10:28 Dose: 5,000 units Ceftriaxone Sodium (Rocephin Iv 1 Gm Duplex) 50 mls @ 50 mls/30 min IVPB DAILY [facility] Last Admin: 02/05/17 10:32 Dose: 50 mls/30 min Azithromycin 500 mg/ Sodium (Chloride) 250 mls @ 167 mls/hr IVPB Q24H [facility] Last Admin: 02/04/17 19:30 Dose: 167 mls/hr Losartan Potassium (Cozaar) 25 mg PO DAILY [facility] Last Admin: 02/05/17 10:27 Dose: 25 mg Pantoprazole Sodium (Protonix Inj) 40 mg IVP DAILY [facility] Last Admin: 02/05/17 10:32 Dose: 40 mg Potassium Chloride (Klor-Con 10) 10 meq PO DAILY [facility] Last Admin: 02/05/17 10:27 Dose: 10 meq Promethazine HCl (Phenergan Syrup) 12.5 mg PO Q6 [facility] Last Admin: 02/05/17 13:40 Dose: 12.5 mg Sacubitril/Valsartan (Entresto 49 Mg-51 Mg) 1 tab PO BID [facility] Last Admin: 02/05/17 10:28 Dose: 1 tab - Labs Labs: 02/05/17 08:30 02/05/17 08:30 PT 15.9 SECONDS (9.7-12.2) H 02/02/17 14:57 INR 1.4 02/02/17 14:57 APTT 31 SECONDS (21-34) 02/02/17 14:57 Assessment and Plan - Assessment and Plan (Free Text) Assessment: Patient is seen and examined. Alert and orientedx3, ambulating well. A/P thoracentesis and paracentesis during this admission. Seen by molecular biology professor for bleeding on his toes. D/W DR Mariluz Mahajan, plan to discharge home today. Advised to follow up in the office in 1 week or if symptoms get worse.
--- NOTE | 2017-02-05 18:04 | CP.PCM.PN ---
Subjective - Date & Time of Evaluation Date of Evaluation: 02/05/17 Time of Evaluation: 15:00 - Subjective Subjective: Patient seen and examined. Breathing much improved Sitting comfortably in no acute distress Status post thoracentesis Status post paracentesis Treat ascites Follow-up chest x-ray Objective - Vital Signs/Intake and Output Vital Signs (last 24 hours): Temp Pulse Resp BP Pulse Ox 97.8 F 82 20 106/60 95 02/05/17 15:00 02/05/17 15:00 02/05/17 15:00 02/05/17 15:00 02/05/17 15:00 Intake and Output: 02/05/17 02/05/17 06:59 18:59 Intake Total 200 340 Balance 200 340 - Medications Medications: Current Medications Albuterol/Ipratropium (Duoneb 3 Mg/0.5 Mg (3 Ml) Ud) 3 ml INH RQ6 [facility] Last Admin: 02/05/17 13:23 Dose: Not Given Aspirin (Ecotrin) 81 mg PO DAILY [facility] Last Admin: 02/05/17 10:27 Dose: 81 mg Furosemide (Lasix) 40 mg PO DAILY [facility] Last Admin: 02/05/17 10:28 Dose: 40 mg Heparin Sodium (Porcine) (Heparin) 5,000 units SC DAILY [facility] Last Admin: 02/05/17 10:28 Dose: 5,000 units Ceftriaxone Sodium (Rocephin Iv 1 Gm Duplex) 50 mls @ 50 mls/30 min IVPB DAILY [facility] Last Admin: 02/05/17 10:32 Dose: 50 mls/30 min Azithromycin 500 mg/ Sodium (Chloride) 250 mls @ 167 mls/hr IVPB Q24H [facility] Last Admin: 02/04/17 19:30 Dose: 167 mls/hr Losartan Potassium (Cozaar) 25 mg PO DAILY [facility] Last Admin: 02/05/17 10:27 Dose: 25 mg Pantoprazole Sodium (Protonix Inj) 40 mg IVP DAILY [facility] Last Admin: 02/05/17 10:32 Dose: 40 mg Potassium Chloride (Klor-Con 10) 10 meq PO DAILY [facility] Last Admin: 02/05/17 10:27 Dose: 10 meq Promethazine HCl (Phenergan Syrup) 12.5 mg PO Q6 [facility] Last Admin: 02/05/17 13:40 Dose: 12.5 mg Sacubitril/Valsartan (Entresto 49 Mg-51 Mg) 1 tab PO BID [facility] Last Admin: 02/05/17 10:28 Dose: 1 tab - Labs Labs: 02/05/17 08:30 02/05/17 08:30 PT 15.9 SECONDS (9.7-12.2) H 02/02/17 14:57 INR 1.4 02/02/17 14:57 APTT 31 SECONDS (21-34) 02/02/17 14:57 Assessment and Plan (1) Pleural effusion on right Status: Acute (2) Ascites Status: Acute (3) Cirrhosis Status: Chronic
== END 2017-02-05 19:03 | disposition home or self-care (01) | DRG 948 ==
LOC: C.ER 13:44 → C.9E 17:24 → C.3T 17:50
PROVIDERS: ADMIT Internal Medicine Nephrology; ATTEND Internal Medicine Nephrology
PROC: 0W9B3ZZ Drainage of Left Pleural Cavity, Percutaneous Approach (ICD-10-PCS; principal; 2017-02-02)
DX: R18.8 Other ascites (principal); J90 Pleural effusion, not elsewhere classified; E11.22 Type 2 diabetes mellitus with diabetic chronic kidney disease; I50.9 Heart failure, unspecified; I11.0 Hypertensive heart disease with heart failure; K74.60 Unspecified cirrhosis of liver; I12.9 Hypertensive chronic kidney disease with stage 1 through stage 4 chronic kidney disease, or unspecified chronic kidney disease; N18.9 Chronic kidney disease, unspecified; Z95.0 Presence of cardiac pacemaker; J44.9 Chronic obstructive pulmonary disease, unspecified

== ENCOUNTER 2017-03-05 19:58 | Inpatient (IN) | payer MEDICARE ==
[2017-03-05 20:00] VITALS: BMI 28.8
[2017-03-05 20:45] LABS: MEAN CORPUSCULAR HEMOGLOBIN 23.4 pg (27.0-31.0); MEAN CORPUSCULAR HGB CONC 30.4 g/dL (33.0-37.0)
[2017-03-05 20:52] LABS: INR 1.3
[2017-03-05 20:56] LABS: ALB/GLOB RATIO 0.8 (1.0-2.1); BILIRUBIN,TOTAL 0.9 mg/dL (0.2-1.3); CALCIUM 7.8 mg/dl (8.6-10.4); HEMATOCRIT 28.5 % (35.0-51.0); MEAN PLATELET VOLUME 7.9 fL (7.2-11.7); POTASSIUM 5.3 mmol/L (3.6-5.2); RED CELL DISTRIBUTION WIDTH 20.8 % (11.5-14.5); TOTAL PROTEIN 8.7 g/dL (6.3-8.3); WHITE BLOOD COUNT 6.9 K/uL (4.8-10.8)
[2017-03-05 20:57] LABS: MEAN CELL VOLUME 76.9 fL (80.0-94.0)
[2017-03-05 21:26] LABS: BASO # 0.1 K/uL (0.0-0.2); BASO % 1.1 % (0.0-2.0); EOS # 0.1 K/uL (0.0-0.7); LYMPH # 1.2 K/uL (1.0-4.3); MONO # 1.1 K/uL (0.0-0.8); MONO % 16.7 % (0.0-10.0); NRBC % 0.2 % (0.0-2.0)
[2017-03-05 21:43] LABS: MAGNESIUM 1.7 mg/dL (1.6-2.3)
[2017-03-05 21:54] LABS: TROPONIN I 0.022 ng/mL (0.00-0.120)
[2017-03-05 22:13] LABS: THYROID STIMULATING HORMONE 3.34 mIU/L (0.46-4.68)
--- NOTE | 2017-03-05 22:15 | C.PDOC ---
History Of Present Illness 67 year old male presents to the ER with a complaint of worsening intermittent SOB. Denies fever, chills, nausea, or vomiting. Patient was admitted in January and discharged on 02/05/17. He has a known right pleural effusion s/p multiple pleuracentesis procedures in the past. He takes 40 mg lasix bid. Patient has a Hx of right pleural effusion, CHF, AIDC, ascites, cirrhosis, HLD, HTN. Chief Complaint (Nursing): Chest Pain History Per: Patient History/Exam Limitations: no limitations Onset/Duration Of Symptoms: Days Current Symptoms Are (Timing): Still Present Severity: Moderate Associated Symptoms: Dyspnea. denies: Nausea, Diaphoresis, Syncope Modifying Factors: None Exacerbating Factors: None Alleviating Factors: None Recent travel outside of the [place]: No Past Medical History Reviewed: Historical Data, Nursing Documentation, Vital Signs Vital Signs: Last Vital Signs Temp 97.9 F 03/06/17 01:45 Pulse 78 03/06/17 01:45 Resp 20 03/06/17 01:45 BP 115/68 03/06/17 01:45 Pulse Ox 96 03/06/17 01:45 - Medical History PMH: Arthritis, CHF, Diabetes, HTN, Hypercholesterolemia Surgical History: Appendectomy, Pacemaker (pt states only defibrillator) - [facility] Procedures ASSISTANCE WITH RESPIRATORY VENTILATION, 24-96 HRS, CPAP (01/21/17) DRAINAGE OF LEFT PLEURAL CAVITY, PERCUTANEOUS APPROACH (02/02/17) DRAINAGE OF PERITONEAL CAVITY, PERCUTANEOUS APPROACH (01/21/17) DRAINAGE OF PERITONEAL CAVITY, PERCUTANEOUS APPROACH, DIAGN (04/26/16) EXCISION OF STOMACH, ENDO, DIAGN (11/03/16) INSPECTION OF LOWER INTESTINAL TRACT, ENDO (11/03/16) TRANSFUSE NONAUT RED BLOOD CELLS IN PERIPH VEIN, PERC (01/21/17) Family History: States: Unknown Family Hx - Social History Hx Tobacco Use: No Hx Alcohol Use: No Hx Substance Use: No - Immunization History Hx Tetanus Toxoid Vaccination: Yes Hx Influenza Vaccination: Yes Hx Pneumococcal Vaccination: Yes Review Of Systems Constitutional: Negative for: Fever, Chills Eyes: Negative for: Pain ENT: Negative for: Ear Pain Cardiovascular: Positive for: Paroxysmal Noc. Dyspnea, Edema. Negative for: Chest Pain, Palpitations Respiratory: Positive for: Cough, Shortness of Breath, SOB with Excertion, Pleuritic Pain. Negative for: Hemoptysis, Sputum, Wheezing Gastrointestinal: Negative for: Nausea, Vomiting, Abdominal Pain Musculoskeletal: Negative for: Neck Pain Skin: Negative for: Rash Neurological: Negative for: Weakness Psych: Negative for: Anxiety Physical Exam - Physical Exam Appears: Non-toxic, Chronically Ill Skin: Normal Color, Warm, Dry Head: Atraumatic, Normacephalic Eye(s): bilateral: Normal Inspection Ear(s): Bilateral: Normal Nose: Normal Oral Mucosa: Moist Tongue: Normal Appearing Lips: Normal Appearing Neck: Normal, Supple Chest: Symmetrical, No Tenderness Cardiovascular: Rhythm Regular Respiratory: Other (No breath sounds at the right posterior base, crackles at the left base) Gastrointestinal/Abdominal: Soft, No Tenderness Extremity: Pedal Edema (3+ pitting edema with seeping) Neurological/Psych: Oriented x3, Normal Speech Gait: Steady ED Course And Treatment - Laboratory Results Result Diagrams: 03/05/17 20:41 03/05/17 20:41 ECG: Interpreted By Me, Viewed By Me ECG Rhythm: V Paced ECG Interpretation: Normal Interpretation Of ECG: QRS: 166, Qt: 446, Qtc: 518. T wave inversions in lead III, avf, V2, and V3. Inversions in V2 and V3 are new compared to prior EKG. Rate From EC - Radiology CXR: Interpreted by Me, Viewed By Me CXR Interpretation: Yes: Other (Large right pleural effusion, smaller left pleural effusion) Medical Decision Making Medical Decision Making: Plan: * ABG * EKG * BNP * CMP * UDS * Mag * TSH * Trop I * CBC * PT * PTT * CXR * Lasix * Flu swab * UA CBC is within normal limits, presence of chronic anemia with hemoglobin of 8.6, BNP elevated 5000, trop I .022. cxr shows a large right pleural effusion and a smaller left pleural effusion. lasix 40 mg IVP ordered. continuus montior. pulse ox 99% on 2 liters -adequate oxygenation Case discussed with Dr. Verduzco who will accept patient for admission. Disposition Doctor Will See Patient In The: Hospital Counseled Patient/Family Regarding: Studies Performed, Diagnosis - Disposition Disposition: HOSPITALIZED Disposition Time: 02:00 Condition: GUARDED - Clinical Impression Clinical Impression: Pleuritic pain, Congestive heart failure, Pleural effusion - Scribe Statement The provider has reviewed the documentation as recorded by the Scribe Alec Dhillon All medical record entries made by the Gopiibandrea were at my direction and personally dictated by me. I have reviewed the chart and agree that the record accurately reflects my personal performance of the history, physical exam, medical decision making, and the department course for this patient. I have also personally directed, reviewed, and agree with the discharge instructions and disposition.
--- NOTE | 2017-03-05 22:25 | CP.PCM.HP ---
<Braulio Torres - Last Filed: 03/05/17 23:10> History of Present Illness - History of Present Illness History of Present Illness: Medicine H/P CC: Abdominal Distension, SOB HPI: Patient is a 67M with a PMH of CHF and AICD placement in 2011, HTN, Liver cirrhosis, recurrent pleural effusions who comes to the ED at the request of Jluis Rock APN due to SOB. He told him to see Dr. Rouse for cardiology in the hospital. He has had worsening SOB for 2 weeks with increasing abdominal distension. He has now noticed welling of the extremities bilaterally as well as two breaks in the skin that are draining clear fluid. He states that his pants and socks get soaked. He has been coughing throughout the day. He states he breaths better if he is sitting up. He is unable to breath if he is lying flat. Denies chest pain, fever, chills. States he has been compliant with his medications and has been eating a low salt diet. 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 Does not smoke, Does not drink, No drugs Medications: Furosemide 40mg PO QD, Aldactone 25 PO QD, Entresto 24mg-26mg One tab daily, Losartan Potassium 25mg PO daily Allergies: Denies Present on Admission - Present on Admission Any Indicators Present on Admission: No Review of Systems - Review of Systems Review of Systems: Per HPI Past Patient History - Infectious Disease Hx of Infectious Diseases: None - Past Medical History & Family History Past Medical History?: Yes - Past Social History Smoking Status: Former Smoker - CARDIAC Hx Congestive Heart Failure: Yes Hx Hypercholesterolemia: Yes Hx Hypertension: Yes Hx Pacemaker: Yes (pt states only defibrillator) - PULMONARY Hx Respiratory Disorders: No - NEUROLOGICAL Hx Neurological Disorder: No - HEENT Hx HEENT Problems: No - RENAL Hx Chronic Kidney Disease: No - ENDOCRINE/METABOLIC Hx Endocrine Disorders: Yes Hx Diabetes Mellitus Type 2: Yes - HEMATOLOGICAL/ONCOLOGICAL Hx Blood Disorders: No - INTEGUMENTARY Hx Dermatological Problems: No - MUSCULOSKELETAL/RHEUMATOLOGICAL Hx Arthritis: Yes - GASTROINTESTINAL Hx Gastrointestinal Disorders: Yes Other/Comment: ascites - GENITOURINARY/GYNECOLOGICAL Hx Genitourinary Disorders: No - PSYCHIATRIC Hx Substance Use: No - SURGICAL HISTORY Hx Appendectomy: Yes - ANESTHESIA Hx Anesthesia: Yes Hx Anesthesia Reactions: No Meds Allergies/Adverse Reactions: Allergies Allergy/AdvReac Type Severity Reaction Status Date / Time No Known Allergies Allergy Verified 03/05/17 20:14 Physical Exam - Constitutional Appears: Non-toxic - Head Exam Head Exam: ATRAUMATIC, NORMAL INSPECTION, NORMOCEPHALIC - Eye Exam Eye Exam: EOMI Pupil Exam: NORMAL ACCOMODATION - ENT Exam ENT Exam: Mucous Membranes Moist - Respiratory Exam Respiratory Exam: Decreased Breath Sounds (RLL) Additional comments: Egoph[place] RLL - Expanded Respiratory Exam Expanded Respiratory: dullness to percussion: Lower (RLL) - Cardiovascular Exam Cardiovascular Exam: REGULAR RHYTHM - GI/Abdominal Exam GI & Abdominal Exam: Distended, Normal Bowel Sounds, Soft. absent: Tenderness - Extremities Exam Extremities exam: Positive for: joint swelling, tenderness Additional comments: 2 weeping ulcers; 1 on the L. posterior aspect of the lower leg on achilles , 2nd on R. medial mal. Health tissue. <1cm; B/l non pitting edema - Neurological Exam Neurological exam: Alert, Oriented x3 - Psychiatric Exam Psychiatric exam: Normal Affect, Normal Mood - Skin Skin Exam: Dry, Intact, Normal Color, Warm Results - Vital Signs Recent Vital Signs: Last Vital Signs Temp 97.6 F 03/05/17 20:09 Pulse 76 03/05/17 20:09 Resp 20 03/05/17 20:09 BP 105/68 03/05/17 20:09 Pulse Ox - Labs Result Diagrams: 03/05/17 20:41 03/05/17 20:41 Labs: Laboratory Results - last 24 hr 03/05/17 03/05/17 03/05/17 20:41 20:41 20:41 WBC 6.9 RBC 3.70 L Hgb 8.6 L Hct 28.5 L MCV 76.9 L D MCH 23.4 L MCHC 30.4 L RDW 20.8 H Plt Count 250 MPV 7.9 Neut % (Auto) 63.2 Lymph % (Auto) 17.0 L [place] % (Auto) 16.7 H Eos % (Auto) 2.0 Baso % (Auto) 1.1 Neut # 4.4 Lymph # 1.2 [place] # 1.1 H Eos # 0.1 Baso # 0.1 PT 14.8 H INR 1.3 APTT 35 H Sodium 135 Potassium 5.3 H Chloride 96 L Carbon Dioxide 33 H Anion Gap 12 BUN 29 H Creatinine 1.6 H Est GFR ( Amer) 53 Est GFR (Non-Af Amer) 44 Random Glucose 85 Calcium 7.8 L Magnesium Total Bilirubin 0.9 AST 38 ALT 31 Alkaline Phosphatase 84 Troponin I NT-Pro-B Natriuret Pep 5320 H Total Protein 8.7 H Albumin 3.8 Globulin 4.9 H Albumin/Globulin Ratio 0.8 L TSH 3rd Generation Influenza Typ A,B (EIA) 03/05/17 03/05/17 21:11 21:34 WBC RBC Hgb Hct MCV MCH MCHC RDW Plt Count MPV Neut % (Auto) Lymph % (Auto) [place] % (Auto) Eos % (Auto) Baso % (Auto) Neut # Lymph # [place] # Eos # Baso # PT INR APTT Sodium Potassium Chloride Carbon Dioxide Anion Gap BUN Creatinine Est GFR ( Amer) Est GFR (Non-Af Amer) Random Glucose Calcium Magnesium 1.7 Total Bilirubin AST ALT Alkaline Phosphatase Troponin I 0.0220 NT-Pro-B Natriuret Pep 5470 H Total Protein Albumin Globulin Albumin/Globulin Ratio TSH 3rd Generation 3.34 Influenza Typ A,B (EIA) Negative for flu a/b Assessment & Plan (1) Ascites Assessment and Plan: Put order in for paracentesis/thoracentesis GI ([facility]) Heart healthy diet Salt restriction Dietary consult for education on salt restriction Meds: * Lasix 40 IV BID * Spironolactone 50 PO QD Status: Acute Priority: High (2) Pleural effusion on right Assessment and Plan: Pulm (John) Put in for thora/para Meds: * Lasix 40 IV BID Status: Chronic Priority: Medium (3) CHF (congestive heart failure) Assessment and Plan: Jennifer (Nasim) Meds: * Lasix 40 IV BID * No statin given prior lipid panel (HDL 33, LDL 34, Chol 72, TG 39) * Coreg 12.5 PO BID * Entresto PO QD * ASA 81 PO QD - hold until thora/para * Aldactone 50 PO QD Last Echo in October showed EF of 37% Status: Chronic Priority: Medium (4) Hypertension Assessment and Plan: Coreg 12.5 PO BID Entresto PO QD Status: Chronic Priority: Medium (5) Prophylactic measure Assessment and Plan: Lovenox 40 PO QD - hold until thora/para SCD C/I due to LE Edema Status: Resolved Priority: Medium <Mundo Verduzco - Last Filed: 03/06/17 06:27> Results - Vital Signs Recent Vital Signs: Last Vital Signs Temp 97.9 F 03/06/17 01:45 Pulse 74 03/06/17 04:12 Resp 20 03/06/17 01:45 BP 115/68 03/06/17 01:45 Pulse Ox 96 03/06/17 01:45 - Labs Result Diagrams: 03/05/17 20:41 03/05/17 20:41 Labs: Laboratory Results - last 24 hr 03/05/17 03/05/17 03/05/17 20:41 20:41 20:41 WBC 6.9 RBC 3.70 L Hgb 8.6 L Hct 28.5 L MCV 76.9 L D MCH 23.4 L MCHC 30.4 L RDW 20.8 H Plt Count 250 MPV 7.9 Neut % (Auto) 63.2 Lymph % (Auto) 17.0 L [place] % (Auto) 16.7 H Eos % (Auto) 2.0 Baso % (Auto) 1.1 Neut # 4.4 Lymph # 1.2 [place] # 1.1 H Eos # 0.1 Baso # 0.1 PT 14.8 H INR 1.3 APTT 35 H Sodium 135 Potassium 5.3 H Chloride 96 L Carbon Dioxide 33 H Anion Gap 12 BUN 29 H Creatinine 1.6 H Est GFR ( Amer) 53 Est GFR (Non-Af Amer) 44 POC Glucose (mg/dL) Random Glucose 85 Calcium 7.8 L Magnesium Total Bilirubin 0.9 AST 38 ALT 31 Alkaline Phosphatase 84 Troponin I NT-Pro-B Natriuret Pep 5320 H Total Protein 8.7 H Albumin 3.8 Globulin 4.9 H Albumin/Globulin Ratio 0.8 L TSH 3rd Generation Urine Color Urine Clarity Urine pH Ur Specific [place] Urine Protein Urine Glucose (UA) Urine Ketones Urine Blood Urine Nitrate Urine Bilirubin Urine Urobilinogen Ur Leukocyte Esterase Urine WBC (Auto) Urine RBC (Auto) Urine Bacteria Hyaline Casts Urine Opiates Screen Urine Methadone Screen Ur Barbiturates Screen Ur Phencyclidine Scrn Ur Amphetamines Screen U Benzodiazepines Scrn U Oth Cocaine Metabols U Cannabinoids Screen Influenza Typ A,B (EIA) 03/05/17 03/05/17 03/05/17 21:11 21:34 22:20 WBC RBC Hgb Hct MCV MCH MCHC RDW Plt Count MPV Neut % (Auto) Lymph % (Auto) [place] % (Auto) Eos % (Auto) Baso % (Auto) Neut # Lymph # [place] # Eos # Baso # PT INR APTT Sodium Potassium Chloride Carbon Dioxide Anion Gap BUN Creatinine Est GFR ( Amer) Est GFR (Non-Af Amer) POC Glucose (mg/dL) Random Glucose Calcium Magnesium 1.7 Total Bilirubin AST ALT Alkaline Phosphatase Troponin I 0.0220 NT-Pro-B Natriuret Pep 5470 H Total Protein Albumin Globulin Albumin/Globulin Ratio TSH 3rd Generation 3.34 Urine Color Urine Clarity Urine pH Ur Specific [place] Urine Protein Urine Glucose (UA) Urine Ketones Urine Blood Urine Nitrate Urine Bilirubin Urine Urobilinogen Ur Leukocyte Esterase Urine WBC (Auto) Urine RBC (Auto) Urine Bacteria Hyaline Casts Urine Opiates Screen Negative Urine Methadone Screen Negative Ur Barbiturates Screen Negative Ur Phencyclidine Scrn Negative Ur Amphetamines Screen Negative U Benzodiazepines Scrn Negative U Oth Cocaine Metabols Negative U Cannabinoids Screen Negative Influenza Typ A,B (EIA) Negative for flu a/b 03/05/17 03/06/17 22:22 05:59 WBC RBC Hgb Hct MCV MCH MCHC RDW Plt Count MPV Neut % (Auto) Lymph % (Auto) [place] % (Auto) Eos % (Auto) Baso % (Auto) Neut # Lymph # [place] # Eos # Baso # PT INR APTT Sodium Potassium Chloride Carbon Dioxide Anion Gap BUN Creatinine Est GFR ( Amer) Est GFR (Non-Af Amer) POC Glucose (mg/dL) 119 H Random Glucose Calcium Magnesium Total Bilirubin AST ALT Alkaline Phosphatase Troponin I NT-Pro-B Natriuret Pep Total Protein Albumin Globulin Albumin/Globulin Ratio TSH 3rd Generation Urine Color Yellow Urine Clarity Clear Urine pH 5.0 Ur Specific [place] 1.012 Urine Protein 1+ H Urine Glucose (UA) Normal Urine Ketones Negative Urine Blood Negative Urine Nitrate Negative Urine Bilirubin Negative Urine Urobilinogen 4.0 Ur Leukocyte Esterase Neg Urine WBC (Auto) < 1 Urine RBC (Auto) 1 Urine Bacteria Rare Hyaline Casts >20 H Urine Opiates Screen Urine Methadone Screen Ur Barbiturates Screen Ur Phencyclidine Scrn Ur Amphetamines Screen U Benzodiazepines Scrn U Oth Cocaine Metabols U Cannabinoids Screen Influenza Typ A,B (EIA) Assessment & Plan - Date & Time Date: 03/06/17 (I have seen and examined the patient. I agree with the findings and plan of care as documented by Dr. Torres. Patient with ascites and pleural effusion. Consult to GI and Pulm. Lasix IV. Monitor breathing closely. History of CHF. Continue home meds. Monitor for acute changes.) Time: 06:26 Attending/Attestation - Attestation I have personally seen and examined this patient.: Yes I have fully participated in the care of the patient.: Yes I have reviewed all pertinent clinical information: Yes
[2017-03-05 22:28] LABS: RBC URINE 1 /hpf (0-3); URINE BACTERIA RARE (<OCC); URINE BILIRUBIN NEGATIVE (NEGATIVE); URINE BLOOD NEGATIVE (NEGATIVE); URINE COLOR Yellow (YELLOW); URINE GLUCOSE (UA) NORMAL (Normal); URINE HYALINE CAST >20 /lpf (0-2); URINE KETONE NEGATIVE (NEGATIVE); URINE LEUKOCYTE ESTERASE NEG Leu/uL (Negative); WBC URINE < 1 /hpf (0-5)
[2017-03-05 22:29] LABS: URINE PROTEIN 1+ mg/dL (NEGATIVE)
[2017-03-06 07:59] LABS: INR 1.3
[2017-03-06 08:11] LABS: HEMATOCRIT 27.5 % (35.0-51.0); MEAN CELL VOLUME 77.1 fL (80.0-94.0); MEAN CORPUSCULAR HEMOGLOBIN 23.4 pg (27.0-31.0); MEAN CORPUSCULAR HGB CONC 30.3 g/dL (33.0-37.0); MEAN PLATELET VOLUME 8.1 fL (7.2-11.7); RED CELL DISTRIBUTION WIDTH 21.1 % (11.5-14.5); WHITE BLOOD COUNT 7.2 K/uL (4.8-10.8)
[2017-03-06 08:27] LABS: ALB/GLOB RATIO 1.1 (1.0-2.1); BILIRUBIN,TOTAL 0.8 mg/dL (0.2-1.3); CALCIUM 7.7 mg/dl (8.6-10.4); POTASSIUM 4.4 mmol/L (3.6-5.2); TOTAL PROTEIN 6.8 g/dL (6.3-8.3)
--- NOTE | 2017-03-06 09:13 | RAD ---
HISTORY: chest pain COMPARISON: 02/02/2017 FINDINGS: LUNGS: No definite infiltrate. Cannot exclude infiltrate at right base due to superimposed density of pleural effusion. PLEURA: Small to moderate right pleural effusion decreased from prior examination. . Fluid within a fissure on the right side. No left pleural effusion. No pneumothorax. CARDIOVASCULAR: No gross cardiomegaly. Mild pulmonary vascular congestive change. AICD. OSSEOUS STRUCTURES: No significant abnormalities. VISUALIZED UPPER ABDOMEN: Normal. OTHER FINDINGS: None. IMPRESSION: Small to moderate right pleural effusion. Decreased in extent from prior examination. No definite infiltrate.
[2017-03-06] MEDS ORDERED: Sacubitril/Valsartan 24-26mg Tab PO SCH (10:00)
[2017-03-06] MEDS ORDERED: Enoxaparin 40 mg Syringe SC SCH (10:00)
--- NOTE | 2017-03-06 10:06 | CP.PCM.CON ---
<Andree Baez - Last Filed: 03/06/17 14:51> History of Present Illness - History of Present Illness History of Present Illness: GI Consult Note for Dr. Tao Reason for consult: reccurent ascites secondary to Liver cirrhosis 67year old male PMHx Defibrillator (2011), CHF, HTN multiple paracentesis/ thoracentesis presented to ED 03/05 for abdominal distension, SOB, and worsening b/l LE edema. Patient reports he noticed increasing abdominal distension for 2 weeks and recently noticed swelling in his extremities bilaterally and 2 breaks in his skin that were draining clear fluid. He admitted to orthopnea, dyspnea on exertion, and a nonproductive cough but denied fever, chills, chest pain, palpitations, abdominal pain, nausea, vomiting , bowel/bladder complaints. PMD: [place] [place] APN PMHx: CHF with AICD (2011), HTN, liver cirrhosis with h/o throacentesis and paracentesis PSurgHx: multiple thoracentesis and paracentesis, last one was January 2017, AICD placement in 2011. 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 Denies tobacco and drug use. Prior hx alc abuse- last drink 4 years ago Meds: Furosemide 40mg PO QD, Aldactone 25 PO QD, Entresto 24mg-26mg One tab daily, Losartan Potassium 25mg PO daily All: NKDA Review of Systems - Review of Systems All systems: reviewed and no additional remarkable complaints except Review of Systems: Per HPI - Constitutional Constitutional: As Per HPI. absent: Chills, Fever - Cardiovascular Cardiovascular: As Per HPI, Dyspnea, Dyspnea on Exertion, Edema, Leg Edema, Orthopnea. absent: Chest Pain - Respiratory Respiratory: As Per HPI, Dyspnea, Dyspnea on Exertion. absent: Cough, Chest Congestion - Gastrointestinal Gastrointestinal: As Per HPI. absent: Abdominal Pain, Constipation, Diarrhea, Nausea, Vomiting Additional comments: abdominal distension - Genitourinary Genitourinary: As Per HPI. absent: Dysuria, Flank Pain, Hematuria - Musculoskeletal Musculoskeletal: As Per HPI. absent: Back Pain, Numbness, Tingling - Integumentary Additional comments: two breaks in the skin that are draining clear fluid - Neurological Neurological: As Per HPI. absent: Dizziness, Numbness, Headaches, Tingling - Endocrine Endocrine: As Per HPI. absent: Palpitations, Polydipsia, Polyphagia - Hematologic/Lymphatic Hematologic: As Per HPI. absent: Easy Bleeding, Easy Bruising Past Patient History - Infectious Disease Hx of Infectious Diseases: None - Past Medical History & Family History Past Medical History?: Yes - Past Social History Smoking Status: Former Smoker - CARDIAC Hx Congestive Heart Failure: Yes Hx Hypercholesterolemia: Yes Hx Hypertension: Yes Hx Pacemaker: Yes (pt states only defibrillator) - PULMONARY Hx Respiratory Disorders: No - NEUROLOGICAL Hx Neurological Disorder: No - HEENT Hx HEENT Problems: No - RENAL Hx Chronic Kidney Disease: No - ENDOCRINE/METABOLIC Hx Endocrine Disorders: Yes Hx Diabetes Mellitus Type 2: Yes - HEMATOLOGICAL/ONCOLOGICAL Hx Blood Transfusions: Yes Hx Blood Transfusion Reaction: No - INTEGUMENTARY Hx Dermatological Problems: No - MUSCULOSKELETAL/RHEUMATOLOGICAL Hx Arthritis: Yes - GASTROINTESTINAL Hx Gastrointestinal Disorders: Yes Other/Comment: ascites - GENITOURINARY/GYNECOLOGICAL Hx Genitourinary Disorders: No - PSYCHIATRIC Hx Substance Use: No - SURGICAL HISTORY Hx Appendectomy: Yes - ANESTHESIA Hx Anesthesia: Yes Hx Anesthesia Reactions: No Hx Malignant Hyperthermia: No Has any member of the family had a problem w/ anesthesia?: No Meds Allergies/Adverse Reactions: Allergies Allergy/AdvReac Type Severity Reaction Status Date / Time No Known Allergies Allergy Verified 03/05/17 20:14 - Medications Medications: Current Medications Benzonatate (Tessalon Perles) 100 mg PO TID PRN PRN Reason: Cough Last Admin: 03/06/17 04:18 Dose: 100 mg Carvedilol (Coreg) 12.5 mg PO BID [facility] Furosemide (Lasix) 40 mg IVP BID [facility] Sacubitril/Valsartan (Entresto 24 Mg-26 Mg) 1 tab PO DAILY [facility] Spironolactone (Aldactone) 50 mg PO DAILY [facility] Physical Exam - Constitutional Appears: Non-toxic - Head Exam Head Exam: ATRAUMATIC, NORMAL INSPECTION, NORMOCEPHALIC - Eye Exam Eye Exam: EOMI, Normal appearance, PERRL. absent: Conjunctival injection, Scleral icterus - ENT Exam ENT Exam: Mucous Membranes Moist - Neck Exam Neck exam: Positive for: Normal Inspection - Respiratory Exam Respiratory Exam: Decreased Breath Sounds, NORMAL BREATHING PATTERN. absent: Accessory Muscle Use, Respiratory Distress - Cardiovascular Exam Cardiovascular Exam: REGULAR RHYTHM, +S1, +S2 - GI/Abdominal Exam GI & Abdominal Exam: Distended, Normal Bowel Sounds, Soft. absent: Tenderness - Extremities Exam Extremities exam: Positive for: pedal edema Additional comments: 2 weeping ulcers: 1st on left posterior aspect of the lower leg on achilles; 2nd : Right medial malleolus B/l non pitting edema Results - Vital Signs Recent Vital Signs: Last Vital Signs Temp 97.6 F 03/06/17 07:00 Pulse 79 03/06/17 07:00 Resp 20 03/06/17 07:00 BP 114/71 03/06/17 07:00 Pulse Ox 94 L 03/06/17 07:00 - Labs Result Diagrams: 03/06/17 07:44 03/06/17 07:44 Labs: Laboratory Results - last 24 hr 03/05/17 03/05/17 03/05/17 20:41 20:41 20:41 WBC 6.9 RBC 3.70 L Hgb 8.6 L Hct 28.5 L MCV 76.9 L D MCH 23.4 L MCHC 30.4 L RDW 20.8 H Plt Count 250 MPV 7.9 Neut % (Auto) 63.2 Lymph % (Auto) 17.0 L Winkler % (Auto) 16.7 H Eos % (Auto) 2.0 Baso % (Auto) 1.1 Neut # 4.4 Lymph # 1.2 Winkler # 1.1 H Eos # 0.1 Baso # 0.1 PT 14.8 H INR 1.3 APTT 35 H Sodium 135 Potassium 5.3 H Chloride 96 L Carbon Dioxide 33 H Anion Gap 12 BUN 29 H Creatinine 1.6 H Est GFR ( Amer) 53 Est GFR (Non-Af Amer) 44 POC Glucose (mg/dL) Random Glucose 85 Calcium 7.8 L Magnesium Total Bilirubin 0.9 AST 38 ALT 31 Alkaline Phosphatase 84 Troponin I NT-Pro-B Natriuret Pep 5320 H Total Protein 8.7 H Albumin 3.8 Globulin 4.9 H Albumin/Globulin Ratio 0.8 L TSH 3rd Generation Urine Color Urine Clarity Urine pH Ur Specific [place] Urine Protein Urine Glucose (UA) Urine Ketones Urine Blood Urine Nitrate Urine Bilirubin Urine Urobilinogen Ur Leukocyte Esterase Urine WBC (Auto) Urine RBC (Auto) Urine Bacteria Hyaline Casts Urine Opiates Screen Urine Methadone Screen Ur Barbiturates Screen Ur Phencyclidine Scrn Ur Amphetamines Screen U Benzodiazepines Scrn U Oth Cocaine Metabols U Cannabinoids Screen Influenza Typ A,B (EIA) 03/05/17 03/05/17 03/05/17 21:11 21:34 22:20 WBC RBC Hgb Hct MCV MCH MCHC RDW Plt Count MPV Neut % (Auto) Lymph % (Auto) Winkler % (Auto) Eos % (Auto) Baso % (Auto) Neut # Lymph # Winkler # Eos # Baso # PT INR APTT Sodium Potassium Chloride Carbon Dioxide Anion Gap BUN Creatinine Est GFR ( Amer) Est GFR (Non-Af Amer) POC Glucose (mg/dL) Random Glucose Calcium Magnesium 1.7 Total Bilirubin AST ALT Alkaline Phosphatase Troponin I 0.0220 NT-Pro-B Natriuret Pep 5470 H Total Protein Albumin Globulin Albumin/Globulin Ratio TSH 3rd Generation 3.34 Urine Color Urine Clarity Urine pH Ur Specific [place] Urine Protein Urine Glucose (UA) Urine Ketones Urine Blood Urine Nitrate Urine Bilirubin Urine Urobilinogen Ur Leukocyte Esterase Urine WBC (Auto) Urine RBC (Auto) Urine Bacteria Hyaline Casts Urine Opiates Screen Negative Urine Methadone Screen Negative Ur Barbiturates Screen Negative Ur Phencyclidine Scrn Negative Ur Amphetamines Screen Negative U Benzodiazepines Scrn Negative U Oth Cocaine Metabols Negative U Cannabinoids Screen Negative Influenza Typ A,B (EIA) Negative for flu a/b 03/05/17 03/06/17 03/06/17 22:22 05:59 07:44 WBC 7.2 RBC 3.57 L Hgb 8.4 L Hct 27.5 L MCV 77.1 L MCH 23.4 L MCHC 30.3 L RDW 21.1 H Plt Count 228 MPV 8.1 Neut % (Auto) Lymph % (Auto) Winkler % (Auto) Eos % (Auto) Baso % (Auto) Neut # Lymph # Winkler # Eos # Baso # PT INR APTT Sodium Potassium Chloride Carbon Dioxide Anion Gap BUN Creatinine Est GFR ( Amer) Est GFR (Non-Af Amer) POC Glucose (mg/dL) 119 H Random Glucose Calcium Magnesium Total Bilirubin AST ALT Alkaline Phosphatase Troponin I NT-Pro-B Natriuret Pep Total Protein Albumin Globulin Albumin/Globulin Ratio TSH 3rd Generation Urine Color Yellow Urine Clarity Clear Urine pH 5.0 Ur Specific [place] 1.012 Urine Protein 1+ H Urine Glucose (UA) Normal Urine Ketones Negative Urine Blood Negative Urine Nitrate Negative Urine Bilirubin Negative Urine Urobilinogen 4.0 Ur Leukocyte Esterase Neg Urine WBC (Auto) < 1 Urine RBC (Auto) 1 Urine Bacteria Rare Hyaline Casts >20 H Urine Opiates Screen Urine Methadone Screen Ur Barbiturates Screen Ur Phencyclidine Scrn Ur Amphetamines Screen U Benzodiazepines Scrn U Oth Cocaine Metabols U Cannabinoids Screen Influenza Typ A,B (EIA) 03/06/17 03/06/17 07:44 07:44 WBC RBC Hgb Hct MCV MCH MCHC RDW Plt Count MPV Neut % (Auto) Lymph % (Auto) Winkler % (Auto) Eos % (Auto) Baso % (Auto) Neut # Lymph # Wink[place] # Eos # Baso # PT 14.8 H INR 1.3 APTT 33 Sodium 137 Potassium 4.4 Chloride 96 L Carbon Dioxide 35 H Anion Gap 11 BUN 29 H Creatinine 1.6 H Est GFR ( Amer) 53 Est GFR (Non-Af Amer) 44 POC Glucose (mg/dL) Random Glucose 100 Calcium 7.7 L Magnesium Total Bilirubin 0.8 AST 22 ALT 10 L D Alkaline Phosphatase 81 Troponin I NT-Pro-B Natriuret Pep Total Protein 6.8 Albumin 3.5 Globulin 3.3 Albumin/Globulin Ratio 1.1 TSH 3rd Generation Urine Color Urine Clarity Urine pH Ur Specific [place] Urine Protein Urine Glucose (UA) Urine Ketones Urine Blood Urine Nitrate Urine Bilirubin Urine Urobilinogen Ur Leukocyte Esterase Urine WBC (Auto) Urine RBC (Auto) Urine Bacteria Hyaline Casts Urine Opiates Screen Urine Methadone Screen Ur Barbiturates Screen Ur Phencyclidine Scrn Ur Amphetamines Screen U Benzodiazepines Scrn U Oth Cocaine Metabols U Cannabinoids Screen Influenza Typ A,B (EIA) Assessment & Plan - Assessment and Plan (Free Text) Assessment: 67year old male PMHx Defibrillator (2011), CHF, HTN multiple paracentesis/ thoracentesis presented to ED 03/05 for abdominal distension, SOB, and worsening b/l LE edema. GI consulted for reccurent ascites secondary to decompensated liver cirrhosis Plan: - Low sodium diet as tolerated - Continue with diuretic therapy, monitor electrolytes - Recommend spironolactone 100 qdaily - patient to be tapped- f/u fluid studies GI will continue to follow Discussed with Dr. Pascale Baez PGY2 <Zoe,Rashaun - Last Filed: 03/06/17 16:33> Meds - Medications Medications: Current Medications Benzonatate (Tessalon Perles) 100 mg PO TID PRN PRN Reason: Cough Last Admin: 03/06/17 04:18 Dose: 100 mg Carvedilol (Coreg) 12.5 mg PO BID [facility] Last Admin: 03/06/17 10:08 Dose: 12.5 mg Furosemide (Lasix) 40 mg IVP Q8H [facility]LE[facility] Sacubitril/Valsartan (Entresto 24 Mg-26 Mg) 1 tab PO DAILY [facility] Last Admin: 03/06/17 10:07 Dose: 1 tab Results - Vital Signs Recent Vital Signs: Last Vital Signs Temp 97.6 F 03/06/17 07:00 Pulse 79 03/06/17 07:00 Resp 20 03/06/17 07:00 BP 126/74 03/06/17 10:08 Pulse Ox 94 L 03/06/17 07:00 - Labs Result Diagrams: 03/06/17 07:44 03/06/17 07:44 Labs: Laboratory Results - last 24 hr 03/05/17 03/05/17 03/05/17 20:41 20:41 20:41 WBC 6.9 RBC 3.70 L Hgb 8.6 L Hct 28.5 L MCV 76.9 L D MCH 23.4 L MCHC 30.4 L RDW 20.8 H Plt Count 250 MPV 7.9 Neut % (Auto) 63.2 Lymph % (Auto) 17.0 L Wink[place] % (Auto) 16.7 H Eos % (Auto) 2.0 Baso % (Auto) 1.1 Neut # 4.4 Lymph # 1.2 Winkler # 1.1 H Eos # 0.1 Baso # 0.1 PT 14.8 H INR 1.3 APTT 35 H Sodium 135 Potassium 5.3 H Chloride 96 L Carbon Dioxide 33 H Anion Gap 12 BUN 29 H Creatinine 1.6 H Est GFR ( Amer) 53 Est GFR (Non-Af Amer) 44 POC Glucose (mg/dL) Random Glucose 85 Calcium 7.8 L Magnesium Total Bilirubin 0.9 AST 38 ALT 31 Alkaline Phosphatase 84 Troponin I NT-Pro-B Natriuret Pep 5320 H Total Protein 8.7 H Albumin 3.8 Globulin 4.9 H Albumin/Globulin Ratio 0.8 L TSH 3rd Generation Urine Color Urine Clarity Urine pH Ur Specific [place] Urine Protein Urine Glucose (UA) Urine Ketones Urine Blood Urine Nitrate Urine Bilirubin Urine Urobilinogen Ur Leukocyte Esterase Urine WBC (Auto) Urine RBC (Auto) Urine Bacteria Hyaline Casts Ur Random Creatinine Ur Random Sodium Ur Random Urea Nitrogn Urine Opiates Screen Urine Methadone Screen Ur Barbiturates Screen Ur Phencyclidine Scrn Ur Amphetamines Screen U Benzodiazepines Scrn U Oth Cocaine Metabols U Cannabinoids Screen Influenza Typ A,B (EIA) 03/05/17 03/05/17 03/05/17 21:11 21:34 22:20 WBC RBC Hgb Hct MCV MCH MCHC RDW Plt Count MPV Neut % (Auto) Lymph % (Auto) [place]ink[place] % (Auto) Eos % (Auto) Baso % (Auto) Neut # Lymph # [place]ink[place] # Eos # Baso # PT INR APTT Sodium Potassium Chloride Carbon Dioxide Anion Gap BUN Creatinine Est GFR ( Amer) Est GFR (Non-Af Amer) POC Glucose (mg/dL) Random Glucose Calcium Magnesium 1.7 Total Bilirubin AST ALT Alkaline Phosphatase Troponin I 0.0220 NT-Pro-B Natriuret Pep 5470 H Total Protein Albumin Globulin Albumin/Globulin Ratio TSH 3rd Generation 3.34 Urine Color Urine Clarity Urine pH Ur Specific [place] Urine Protein Urine Glucose (UA) Urine Ketones Urine Blood Urine Nitrate Urine Bilirubin Urine Urobilinogen Ur Leukocyte Esterase Urine WBC (Auto) Urine RBC (Auto) Urine Bacteria Hyaline Casts Ur Random Creatinine Ur Random Sodium Ur Random Urea Nitrogn Urine Opiates Screen Negative Urine Methadone Screen Negative Ur Barbiturates Screen Negative Ur Phencyclidine Scrn Negative Ur Amphetamines Screen Negative U Benzodiazepines Scrn Negative U Oth Cocaine Metabols Negative U Cannabinoids Screen Negative Influenza Typ A,B (EIA) Negative for flu a/b 03/05/17 03/06/17 03/06/17 22:22 05:59 07:44 WBC 7.2 RBC 3.57 L Hgb 8.4 L Hct 27.5 L MCV 77.1 L MCH 23.4 L MCHC 30.3 L RDW 21.1 H Plt Count 228 MPV 8.1 Neut % (Auto) 70.0 Lymph % (Auto) 11.0 L Wink[place] % (Auto) 18.0 H Eos % (Auto) 1.0 Baso % (Auto) 0.0 Neut # 5.0 Lymph # 0.8 L Winkler # 1.3 H Eos # 0.0 Baso # 0.0 PT INR APTT Sodium Potassium Chloride Carbon Dioxide Anion Gap BUN Creatinine Est GFR ( Amer) Est GFR (Non-Af Amer) POC Glucose (mg/dL) 119 H Random Glucose Calcium Magnesium Total Bilirubin AST ALT Alkaline Phosphatase Troponin I NT-Pro-B Natriuret Pep Total Protein Albumin Globulin Albumin/Globulin Ratio TSH 3rd Generation Urine Color Yellow Urine Clarity Clear Urine pH 5.0 Ur Specific [place] 1.012 Urine Protein 1+ H Urine Glucose (UA) Normal Urine Ketones Negative Urine Blood Negative Urine Nitrate Negative Urine Bilirubin Negative Urine Urobilinogen 4.0 Ur Leukocyte Esterase Neg Urine WBC (Auto) < 1 Urine RBC (Auto) 1 Urine Bacteria Rare Hyaline Casts >20 H Ur Random Creatinine Ur Random Sodium Ur Random Urea Nitrogn Urine Opiates Screen Urine Methadone Screen Ur Barbiturates Screen Ur Phencyclidine Scrn Ur Amphetamines Screen U Benzodiazepines Scrn U Oth Cocaine Metabols U Cannabinoids Screen Influenza Typ A,B (EIA) 03/06/17 03/06/17 03/06/17 07:44 07:44 14:46 WBC RBC Hgb Hct MCV MCH MCHC RDW Plt Count MPV Neut % (Auto) Lymph % (Auto) [place]ink[place] % (Auto) Eos % (Auto) Baso % (Auto) Neut # Lymph # [place]ink[place] # Eos # Baso # PT 14.8 H INR 1.3 APTT 33 Sodium 137 Potassium 4.4 Chloride 96 L Carbon Dioxide 35 H Anion Gap 11 BUN 29 H Creatinine 1.6 H Est GFR ( Amer) 53 Est GFR (Non-Af Amer) 44 POC Glucose (mg/dL) Random Glucose 100 Calcium 7.7 L Magnesium Total Bilirubin 0.8 AST 22 ALT 10 L D Alkaline Phosphatase 81 Troponin I NT-Pro-B Natriuret Pep Total Protein 6.8 Albumin 3.5 Globulin 3.3 Albumin/Globulin Ratio 1.1 TSH 3rd Generation Urine Color Urine Clarity Urine pH Ur Specific [place] Urine Protein Urine Glucose (UA) Urine Ketones Urine Blood Urine Nitrate Urine Bilirubin Urine Urobilinogen Ur Leukocyte Esterase Urine WBC (Auto) Urine RBC (Auto) Urine Bacteria Hyaline Casts Ur Random Creatinine 139.1 Ur Random Sodium 52 Ur Random Urea Nitrogn 502 Urine Opiates Screen Urine Methadone Screen Ur Barbiturates Screen Ur Phencyclidine Scrn Ur Amphetamines Screen U Benzodiazepines Scrn U Oth Cocaine Metabols U Cannabinoids Screen Influenza Typ A,B (EIA) Attending/Attestation - Attestation I have personally seen and examined this patient.: Yes I have fully participated in the care of the patient.: Yes I have reviewed all pertinent clinical information: Yes Notes (Text): 03/06/17 16:31 67 year old male with h/o CHF s/p AICD, HTN, Etoh abuse, Cirrhosis admitted with fluid overload. 1. Alcoholic cirrhosis 2. Ascites 3. Pleural effusion Plan: - recommed paracentesis and thoracentesis - give IV lasix BID while inpatient and increase aldactone to 100 daily - sodium restricted diet - etoh abstinence advised - send ascitic fluid for cell count, diff, TP, albumin, and culture
[2017-03-06 10:14] LABS: LYMPH # 0.8 K/uL (1.0-4.3); MONO # 1.3 K/uL (0.0-0.8)
--- NOTE | 2017-03-06 10:14 | CP.PCM.PN ---
Addendum entered and electronically signed by Chaka Kenney DO 03/06/17 18:58: Patient has requested and given permission for the medical team to speak with his only close relative about his medical status. Patient's aunt Sia Ravi [phone] was spoken with over the phone by the medical team and informed of the patient's current status. Original Note: <Chaka Kenney - Last Filed: 03/06/17 17:59> Subjective - Date & Time of Evaluation Date of Evaluation: 03/06/17 Time of Evaluation: 07:10 - Subjective Subjective: Medicine note for Dr. Sanz Patient seen and examined at bedside. Patient is complaining of cough that is worsened with a change in position. Patient states that no one position is best but that he has to spend about ten minutes before he acclimates to the position. Patient is very concerned about the etiology of his recurrent ascites. Patient reassured of on-going work up. Objective - Vital Signs/Intake and Output Vital Signs (last 24 hours): Temp Pulse Resp BP Pulse Ox 97.6 F 79 20 114/71 94 L 03/06/17 07:00 03/06/17 07:00 03/06/17 07:00 03/06/17 07:00 03/06/17 07:00 Intake and Output: 03/06/17 03/06/17 06:59 18:59 Intake Total 240 Balance 240 - Medications Medications: Current Medications Benzonatate (Tessalon Perles) 100 mg PO TID PRN PRN Reason: Cough Last Admin: 03/06/17 04:18 Dose: 100 mg Carvedilol (Coreg) 12.5 mg PO BID KAYLEEN Furosemide (Lasix) 40 mg IVP BID KAYLEEN Sacubitril/Valsartan (Entresto 24 Mg-26 Mg) 1 tab PO DAILY KAYLEEN Spironolactone (Aldactone) 50 mg PO DAILY KAYLEEN - Labs Labs: 03/06/17 07:44 03/06/17 07:44 PT 14.8 SECONDS (9.7-12.2) H 03/06/17 07:44 INR 1.3 03/06/17 07:44 APTT 33 SECONDS (21-34) 03/06/17 07:44 - Constitutional Appears: No Acute Distress - Head Exam Head Exam: ATRAUMATIC, NORMOCEPHALIC - Eye Exam Eye Exam: EOMI, PERRL - ENT Exam ENT Exam: Mucous Membranes Moist - Respiratory Exam Respiratory Exam: Decreased Breath Sounds. absent: Rales, Rhonchi, Wheezes - Cardiovascular Exam Cardiovascular Exam: REGULAR RHYTHM, +S1, +S2 - GI/Abdominal Exam GI & Abdominal Exam: Distended, Soft, Tenderness (tender to deep palpation), Normal Bowel Sounds - Extremities Exam Extremities Exam: absent: Tenderness Additional comments: 2+ bilateral non-pitting leg edema. bilateral skin thickening. not actively weeping at the time of my physical exam. - Neurological Exam Neurological Exam: Alert, Awake, Oriented x3 - Skin Skin Exam: Dry, Warm Assessment and Plan - Assessment and Plan (Free Text) Plan: Ascites paracentesis/thoracentesis GI (Dinh) Heart healthy diet Salt restriction Dietary consult for education on salt restriction Meds: * Lasix 40 mg IV Q8 per Nephro recommendation F/u abdominal/renal ultrasound Pleural effusion on right Pulm (John), Dr. Reis covering, help appreciated thoracentesis/paracentesis Per Dr. Reis's recommendation, started Advair 500-50 Q12 KAYLEEN and Ventolin Q6 prn shortness of breath Systolic CHF (congestive heart failure) Cards (Nasim) Meds: * Lasix 40 mg IV Q8 per Nephro recommendation * No statin given prior lipid panel (HDL 33, LDL 34, Chol 72, TG 39) * Coreg 12.5 PO BID * Entresto 24/26 PO QD * ASA 81 PO QD - hold until thora/para Hypertension Coreg 12.5 PO BID Entresto 24/26 PO QD Prophylactic measure Lovenox 40 PO QD - hold until thora/para SCD C/I due to LE Edema Heart healthy diet Case DW Dr. Umu Kenney PGY-1 <Mer Sanz V - Last Filed: 03/07/17 00:01> Objective - Vital Signs/Intake and Output Vital Signs (last 24 hours): Temp Pulse Resp BP Pulse Ox 97.4 F L 97 H 22 103/58 L 94 L 03/06/17 16:00 03/06/17 19:22 03/06/17 16:00 03/06/17 18:11 03/06/17 07:00 Intake and Output: 03/06/17 03/07/17 18:59 06:59 Intake Total 240 Output Total 1000 Balance -760 - Medications Medications: Current Medications Albuterol (Ventolin Hfa 90 Mcg/Actuation (8 G)) 1 puff INH RQ6 PRN PRN Reason: Shortness of Breath Benzonatate (Tessalon Perles) 100 mg PO TID PRN PRN Reason: Cough Last Admin: 03/06/17 04:18 Dose: 100 mg Carvedilol (Coreg) 12.5 mg PO BID KAYLEEN Last Admin: 03/06/17 18:11 Dose: 12.5 mg Furosemide (Lasix) 40 mg IVP Q8H KAYLEEN Last Admin: 03/06/17 18:08 Dose: 40 mg Sacubitril/Valsartan (Entresto 24 Mg-26 Mg) 1 tab PO BID KAYLEEN Fluticasone/Salmeterol (Advair Diskus 500/50) 1 puff INH RQ12 KAYLEEN Last Admin: 03/06/17 19:21 Dose: 1 puff - Labs Labs: 03/06/17 07:44 03/06/17 07:44 PT 14.8 SECONDS (9.7-12.2) H 03/06/17 07:44 INR 1.3 03/06/17 07:44 APTT 33 SECONDS (21-34) 03/06/17 07:44 Attending/Attestation - Attestation I have personally seen and examined this patient.: Yes I have fully participated in the care of the patient.: Yes I have reviewed all pertinent clinical information, including history, physical exam and plan: Yes Notes (Text): Patient seen, examined and case discussed with day-time resident. Patient seen this morning with the resident. Patient reports cough and abdominal distension. Patient reports he had cath sometime ago in [facility] and denies any knowledge of any liver problems. Patient has been admitted to the hospital number of times for paracentesis and thoracentesis at least 4 times this year. Patient permits me to speak to his aunt Sia who I explained in terms of patient's weakened heart as well as liver problems which is contributing to both his fluid buildup in the abdomen and lungs. GI, Cardiology, Pulmonary, and Nephrology consults in progress help appreciated Patient is awaiting IR for paracentesis/thoracentesis for removal of fluid. 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 Tao's group on case)-->help appreciated * Awaiting paracentesis * Fluid studies are ordered * Heart healthy diet * Salt restriction * Dietary consult for education on salt restriction * Medications: * Lasix 40 mg IV Q8 per Nephro recommendation * Aldactone held until after paracentesis and then to be resumed * Abdominal US ordered * Cholelithiasis. No sonographic evidence of acute cholecystitis. Cirrhotic appearing liver similar to that seen previously. No focal abnormalities. Intra- abdominal ascites again identified although difficult to quantify. Also remarks on Kidneys on the same ultrasound 2) Pleural effusion on right * Contributing factors: liver cirrhosis, dilated cardiomyopathy * Pulm (John), Dr. Reis covering, help appreciated * Per Dr. Reis's recommendation, started Advair 500-50 Q12 KAYLEEN and Ventolin Q6 prn shortness of breath 3) Systolic CHF (congestive heart failure) * Cards (Nasim) on the case-->help appreciated * Recommend for PICC for milirone drip * Meds: * increased to Lasix 40 mg IV Q8 per Nephrology recommendation; Aldactone held until after paracentesis * No statin given prior lipid panel (HDL 33, LDL 34, Chol 72, TG 39)-->will restart given CAD hx * Coreg 12.5 PO BID * Nephrology has held Entresto PO QD until after paracentesis; Losartan d/ c considering there is an ARB in the medication itself * patient is not ASA 81 PO QDaily - hold until thora/para * Echocardiogram (01/11/17): Mild to moderate concentric left ventricular hypertrophy. left ventricle systolic function is moderately impaired EF: 30-35% , moderate septal hypokinesis consistent with CAD, left ventricular diastolic function is normal. Left atrium is moderately dilated. Right atrium is moderate dilated. Mitral regurgitation is mild. Mild to mod tricupsid regurgitation, mild -moderate pulm HTN * Patient has refused with nursing staff to remain on telemetry and has refused 4) Anemia * Reticulocyte count, iron studies, b12, folate, and occult blood ordered 5) Hypertension * Coreg 12.5 PO BID * on Hold Entresto PO QD until after paracentesis 6) Prophylactic measure * Lovenox 40 PO QD - hold until thora/para * SCD C/I due to LE Edema * Heart healthy diet, salt restriction * Aunt Sia Ravi [phone] was spoken with over the phone by the medical team and informed of the patient's current status during rounds today by myself with consent to share medical information by the patient.
--- NOTE | 2017-03-06 13:24 | CP.PCM.CON ---
<VeroebenChanel gómez - Last Filed: 03/06/17 16:50> History of Present Illness - History of Present Illness History of Present Illness: Nephrology consult note for Dr Archer's service. Reason for consult: HELENE in the setting of chf. Patient is a 67 y/o Male with PMH significant for systolic CHF ( last echo with LVEF of 30-34%), s/p defibrillator, htn, cirrhosis of the liver with recurrent ascites and pleural effusions with history of thoracentesis and paracentesis, former alcohol abuse whom presented with worsening in shortness of breath along with worsening in lower extremities edema. Nephrology is consulted for HELENE. Patient states since March he has been experiencing difficulties with breathing on/off, was [place] [facility], and underwent thoracentesis and paracentesis with removal of over 4 litters of fluid. Patient states since then he had couple more of paracentesis, some of them here at [facility] (formerly [facility]), with the latest being February 04, 2017. Patient states he was never told he had issues with his liver. Patient states shortly after he was discharged on February 05, started to experience shortness of breath, with dyspnea when he lies flat, and when he tries to ambulate. Patient also reports persistent dry cough, feels like there' s fluid in his chest. Furthermore, patient states he also has lower extremities edema, from his feet up to the thigh, and it was oozing, prompting him to come in. Admits to distended abdomen, denies constipation. Denies fever or chills. No nausea, vomiting or diarrhea. Patient reports at home he gets up twice to urinate. States in the hospital he hasn't been urinating much, only urinated once since getting Lasix this AM at 10 am. PMHx: HTN, CHF with defibrillator in 2011, htn, cirrhosis of the liver with h/o thoracentesis and paracentesis. PSHx: multiple thoracentesis and paracentesis, last one was January 2017, AICD placement in 2011, Hernia repair 16 years ago. FMHx: Non contributory Social history: Patient denies tobacco, denies illicit drug use. Admits to history of alcohol abuse, states he was drinking a bottle of alcohol almost every other day, states last time he drunk heavily was about 4 years ago, however recently he drinks a glass of wine with dinner. Retired, worked at the [employer]. Allergies: NKDA Home meds: Lasix 40 mg bid?, aldactone, entresto, coreg, and cozaar. Review of Systems - Constitutional Constitutional: Fatigue. absent: Anorexia, Chills, Fever, Headache, Lethargy, Malaise, Night Sweats, Weight Loss, Weakness - EENT Eyes: absent: Blurred Vision Ears: absent: Dizziness Nose/Mouth/Throat: absent: Dysphagia - Cardiovascular Cardiovascular: Dyspnea, Dyspnea on Exertion, Edema, Leg Edema, Leg Ulcers, Paroxysmal Nocturnal Dyspnea, Pedal Edema. absent: Chest Pain, Chest Pain at Rest, Chest Pain with Activity, Irregular Heart Rhythm, Lightheadedness, Orthopnea, Palpitations, Rapid Heart Rate, Slow Heart Rate, Syncope - Respiratory Respiratory: Cough, Dyspnea. absent: Hemoptysis, Wheezing, Change in Mucous Color, Pain with Coughing - Gastrointestinal Gastrointestinal: Abdominal Pain, Belching, Bloating, Early Satiety, Excessive Flatus. absent: Change in Bowel Habits, Change in Stool Character, Coffee Ground Emesis, Constipation, Diarrhea, Dyspepsia, Dysphagia, Heartburn, Hematochezia, Loose Stools, Nausea, Vomiting - Genitourinary Genitourinary: Change in Urinary Stream (occasionally), Nocturia. absent: Difficulty Urinating, Dysuria, Urinary Incontinence, Voiding Freq/Small Amts, Freq UTI - Integumentary Integumentary: Dry Skin, Pruritus, Rash, Skin Ulcer, Swelling - Neurological Neurological: absent: Confusion, Dizziness, Numbness, Syncope - Psychiatric Psychiatric: absent: Anxiety, Confusion, Depression - Endocrine Endocrine: Fatigue. absent: Palpitations, Polydipsia, Polyphagia, Polyuria - Hematologic/Lymphatic Hematologic: absent: Easy Bleeding, Easy Bruising, Lymphadenopathy Past Patient History - Infectious Disease Hx of Infectious Diseases: None - Past Medical History & Family History Past Medical History?: Yes - Past Social History Smoking Status: Never Smoked Alcohol: Other (Former alcohol abuse.) Home Situation {Lives}: Alone - CARDIAC Hx Congestive Heart Failure: Yes Hx Hypercholesterolemia: Yes Hx Hypertension: Yes Hx Pacemaker: Yes (pt states only defibrillator) - PULMONARY Hx Respiratory Disorders: No - NEUROLOGICAL Hx Neurological Disorder: No - HEENT Hx HEENT Problems: No - RENAL Hx Chronic Kidney Disease: No - ENDOCRINE/METABOLIC Hx Endocrine Disorders: Yes Hx Diabetes Mellitus Type 2: Yes - HEMATOLOGICAL/ONCOLOGICAL Hx Blood Transfusions: Yes Hx Blood Transfusion Reaction: No - INTEGUMENTARY Hx Dermatological Problems: No - MUSCULOSKELETAL/RHEUMATOLOGICAL Hx Arthritis: Yes - GASTROINTESTINAL Hx Gastrointestinal Disorders: Yes Other/Comment: ascites - GENITOURINARY/GYNECOLOGICAL Hx Genitourinary Disorders: No - PSYCHIATRIC Hx Substance Use: No - SURGICAL HISTORY Hx Appendectomy: Yes - ANESTHESIA Hx Anesthesia: Yes Hx Anesthesia Reactions: No Hx Malignant Hyperthermia: No Has any member of the family had a problem w/ anesthesia?: No Meds Allergies/Adverse Reactions: Allergies Allergy/AdvReac Type Severity Reaction Status Date / Time No Known Allergies Allergy Verified 03/05/17 20:14 - Medications Medications: Current Medications Benzonatate (Tessalon Perles) 100 mg PO TID PRN PRN Reason: Cough Last Admin: 03/06/17 04:18 Dose: 100 mg Carvedilol (Coreg) 12.5 mg PO BID [facility] Last Admin: 03/06/17 10:08 Dose: 12.5 mg Furosemide (Lasix) 40 mg IVP BID [facility] Last Admin: 03/06/17 10:08 Dose: 40 mg Sacubitril/Valsartan (Entresto 24 Mg-26 Mg) 1 tab PO DAILY [facility] Last Admin: 03/06/17 10:07 Dose: 1 tab Physical Exam - Constitutional Appears: No Acute Distress, Older Than Stated Age, Cachectic, Chronically Ill - Head Exam Head Exam: ATRAUMATIC, NORMAL INSPECTION, NORMOCEPHALIC - Eye Exam Eye Exam: EOMI, Normal appearance, PERRL. absent: Scleral icterus Pupil Exam: NORMAL ACCOMODATION - ENT Exam ENT Exam: Mucous Membranes Dry - Neck Exam Neck exam: Positive for: Normal Inspection. Negative for: Lymphadenopathy, Meningismus, Tenderness - Respiratory Exam Respiratory Exam: Rales (occasional at the bases. faisal.), NORMAL BREATHING PATTERN. absent: Accessory Muscle Use, Chest Wall Tenderness, Decreased Breath Sounds, Prolonged Expiratory Phase, Rhonchi, Wheezes, Respiratory Distress, Stridor - Cardiovascular Exam Cardiovascular Exam: REGULAR RHYTHM, RRR, +S1, +S2. absent: Bradycardia, Tachycardia, Gallop, JVD, Rubs, Systolic Murmur - GI/Abdominal Exam GI & Abdominal Exam: Distended, Firm, Hernia, Normal Bowel Sounds. absent: Guarding, Rebound, Rigid, Tenderness Additional comments: + fluid wave. - Extremities Exam Extremities exam: Positive for: pedal edema (+3 up down to the foot, all the way above the knees faisal. ), tenderness - Back Exam Back exam: rash noted. absent: tenderness - Neurological Exam Neurological exam: Alert, Oriented x3 - Psychiatric Exam Psychiatric exam: Normal Affect, Normal Mood - Skin Skin Exam: Abrasion, Dry, Rash, Warm Results - Vital Signs Recent Vital Signs: Last Vital Signs Temp 97.6 F 03/06/17 07:00 Pulse 79 03/06/17 07:00 Resp 20 03/06/17 07:00 BP 126/74 03/06/17 10:08 Pulse Ox 94 L 03/06/17 07:00 - Labs Result Diagrams: 03/06/17 07:44 03/06/17 07:44 Labs: Laboratory Results - last 24 hr 03/05/17 03/05/17 03/05/17 20:41 20:41 20:41 WBC 6.9 RBC 3.70 L Hgb 8.6 L Hct 28.5 L MCV 76.9 L D MCH 23.4 L MCHC 30.4 L RDW 20.8 H Plt Count 250 MPV 7.9 Neut % (Auto) 63.2 Lymph % (Auto) 17.0 L Carbon % (Auto) 16.7 H Eos % (Auto) 2.0 Baso % (Auto) 1.1 Neut # 4.4 Lymph # 1.2 Carbon # 1.1 H Eos # 0.1 Baso # 0.1 PT 14.8 H INR 1.3 APTT 35 H Sodium 135 Potassium 5.3 H Chloride 96 L Carbon Dioxide 33 H Anion Gap 12 BUN 29 H Creatinine 1.6 H Est GFR ( Amer) 53 Est GFR (Non-Af Amer) 44 POC Glucose (mg/dL) Random Glucose 85 Calcium 7.8 L Magnesium Total Bilirubin 0.9 AST 38 ALT 31 Alkaline Phosphatase 84 Troponin I NT-Pro-B Natriuret Pep 5320 H Total Protein 8.7 H Albumin 3.8 Globulin 4.9 H Albumin/Globulin Ratio 0.8 L TSH 3rd Generation Urine Color Urine Clarity Urine pH Ur Specific Solo Urine Protein Urine Glucose (UA) Urine Ketones Urine Blood Urine Nitrate Urine Bilirubin Urine Urobilinogen Ur Leukocyte Esterase Urine WBC (Auto) Urine RBC (Auto) Urine Bacteria Hyaline Casts Urine Opiates Screen Urine Methadone Screen Ur Barbiturates Screen Ur Phencyclidine Scrn Ur Amphetamines Screen U Benzodiazepines Scrn U Oth Cocaine Metabols U Cannabinoids Screen Influenza Typ A,B (EIA) 03/05/17 03/05/17 03/05/17 21:11 21:34 22:20 WBC RBC Hgb Hct MCV MCH MCHC RDW Plt Count MPV Neut % (Auto) Lymph % (Auto) Carbon % (Auto) Eos % (Auto) Baso % (Auto) Neut # Lymph # Carbon # Eos # Baso # PT INR APTT Sodium Potassium Chloride Carbon Dioxide Anion Gap BUN Creatinine Est GFR ( Amer) Est GFR (Non-Af Amer) POC Glucose (mg/dL) Random Glucose Calcium Magnesium 1.7 Total Bilirubin AST ALT Alkaline Phosphatase Troponin I 0.0220 NT-Pro-B Natriuret Pep 5470 H Total Protein Albumin Globulin Albumin/Globulin Ratio TSH 3rd Generation 3.34 Urine Color Urine Clarity Urine pH Ur Specific Solo Urine Protein Urine Glucose (UA) Urine Ketones Urine Blood Urine Nitrate Urine Bilirubin Urine Urobilinogen Ur Leukocyte Esterase Urine WBC (Auto) Urine RBC (Auto) Urine Bacteria Hyaline Casts Urine Opiates Screen Negative Urine Methadone Screen Negative Ur Barbiturates Screen Negative Ur Phencyclidine Scrn Negative Ur Amphetamines Screen Negative U Benzodiazepines Scrn Negative U Oth Cocaine Metabols Negative U Cannabinoids Screen Negative Influenza Typ A,B (EIA) Negative for flu a/b 03/05/17 03/06/17 03/06/17 22:22 05:59 07:44 WBC 7.2 RBC 3.57 L Hgb 8.4 L Hct 27.5 L MCV 77.1 L MCH 23.4 L MCHC 30.3 L RDW 21.1 H Plt Count 228 MPV 8.1 Neut % (Auto) 70.0 Lymph % (Auto) 11.0 L Carbon % (Auto) 18.0 H Eos % (Auto) 1.0 Baso % (Auto) 0.0 Neut # 5.0 Lymph # 0.8 L Carbon # 1.3 H Eos # 0.0 Baso # 0.0 PT INR APTT Sodium Potassium Chloride Carbon Dioxide Anion Gap BUN Creatinine Est GFR ( Amer) Est GFR (Non-Af Amer) POC Glucose (mg/dL) 119 H Random Glucose Calcium Magnesium Total Bilirubin AST ALT Alkaline Phosphatase Troponin I NT-Pro-B Natriuret Pep Total Protein Albumin Globulin Albumin/Globulin Ratio TSH 3rd Generation Urine Color Yellow Urine Clarity Clear Urine pH 5.0 Ur Specific Solo 1.012 Urine Protein 1+ H Urine Glucose (UA) Normal Urine Ketones Negative Urine Blood Negative Urine Nitrate Negative Urine Bilirubin Negative Urine Urobilinogen 4.0 Ur Leukocyte Esterase Neg Urine WBC (Auto) < 1 Urine RBC (Auto) 1 Urine Bacteria Rare Hyaline Casts >20 H Urine Opiates Screen Urine Methadone Screen Ur Barbiturates Screen Ur Phencyclidine Scrn Ur Amphetamines Screen U Benzodiazepines Scrn U Oth Cocaine Metabols U Cannabinoids Screen Influenza Typ A,B (EIA) 03/06/17 03/06/17 07:44 07:44 WBC RBC Hgb Hct MCV MCH MCHC RDW Plt Count MPV Neut % (Auto) Lymph % (Auto) Carbon % (Auto) Eos % (Auto) Baso % (Auto) Neut # Lymph # Carbon # Eos # Baso # PT 14.8 H INR 1.3 APTT 33 Sodium 137 Potassium 4.4 Chloride 96 L Carbon Dioxide 35 H Anion Gap 11 BUN 29 H Creatinine 1.6 H Est GFR ( Amer) 53 Est GFR (Non-Af Amer) 44 POC Glucose (mg/dL) Random Glucose 100 Calcium 7.7 L Magnesium Total Bilirubin 0.8 AST 22 ALT 10 L D Alkaline Phosphatase 81 Troponin I NT-Pro-B Natriuret Pep Total Protein 6.8 Albumin 3.5 Globulin 3.3 Albumin/Globulin Ratio 1.1 TSH 3rd Generation Urine Color Urine Clarity Urine pH Ur Specific Solo Urine Protein Urine Glucose (UA) Urine Ketones Urine Blood Urine Nitrate Urine Bilirubin Urine Urobilinogen Ur Leukocyte Esterase Urine WBC (Auto) Urine RBC (Auto) Urine Bacteria Hyaline Casts Urine Opiates Screen Urine Methadone Screen Ur Barbiturates Screen Ur Phencyclidine Scrn Ur Amphetamines Screen U Benzodiazepines Scrn U Oth Cocaine Metabols U Cannabinoids Screen Influenza Typ A,B (EIA) Assessment & Plan (1) HELENE (acute kidney injury) Assessment and Plan: Baseline creatinine of 0.9-1, currently 1.6, with 1-3 grams of proteinuria on UA. Likely pre-renal with Furea of 19.9%, due to diuresis versus decreased perfusion secondary to decompensated CHF. R/o post renal with obstruction of the bladder/ureters in the setting of distended abdomen. Patient only voided 400 cc of urine since getting 40 mg of laxis ~ 5 hours ago. Will obtain renal and bladder U/S. Patient is refusing catheter. Less likely intrinsic, less likely AIN due to lack of wbc in the ua. Differentials still includes hepatorenal due to history of liver cirrhosis, however this is diagnosis of exclusion. Strict I&O. Will obtain total protein/creat ratio to quantify protein. Status: Acute (2) Systolic CHF Assessment and Plan: Will increase Lasix to 40 mg q8hr. Continue with entresto, consider increasing the dose to bid starting tomorrow. Cardiology on board Status: Acute (3) ALC (alcoholic liver cirrhosis) Assessment and Plan: As per abdominal u/s on 11/03/16. Patient to have a repeat abdominal u/s. Plan for possible Thoracentesis and paracentesis tomorrow as primary. Please send fluid LDH, total protein with the ascitic fluid. Patient had hep panel on 05/04 which was normal. Will obtain 4TH GEN HIV test. Status: Acute (4) Hypertension Assessment and Plan: Maintain normothensive. Status: Chronic Priority: Medium (5) Anemia Assessment and Plan: Microcytic anemia. Anemia work up sent, pending. Status: Acute - Date & Time Date: 03/06/17 Time: 16:00 <Reinier Archer - Last Filed: 03/06/17 18:54> Meds - Medications Medications: Current Medications Albuterol (Ventolin Hfa 90 Mcg/Actuation (8 G)) 1 puff INH RQ6 PRN PRN Reason: Shortness of Breath Benzonatate (Tessalon Perles) 100 mg PO TID PRN PRN Reason: Cough Last Admin: 03/06/17 04:18 Dose: 100 mg Carvedilol (Coreg) 12.5 mg PO BID [facility] Last Admin: 03/06/17 18:11 Dose: 12.5 mg Furosemide (Lasix) 40 mg IVP Q8H [facility] Last Admin: 03/06/17 18:08 Dose: 40 mg Sacubitril/Valsartan (Entresto 24 Mg-26 Mg) 1 tab PO DAILY [facility] Last Admin: 03/06/17 10:07 Dose: 1 tab Fluticasone/Salmeterol (Advair Diskus 500/50) 1 puff INH RQ12 KAYLEEN Results - Vital Signs Recent Vital Signs: Last Vital Signs Temp 97.4 F L 03/06/17 16:00 Pulse 78 03/06/17 16:00 Resp 22 03/06/17 16:00 BP 103/58 L 03/06/17 18:11 Pulse Ox 94 L 03/06/17 07:00 - Labs Result Diagrams: 03/06/17 07:44 03/06/17 07:44 Labs: Laboratory Results - last 24 hr 03/05/17 03/05/17 03/05/17 20:41 20:41 20:41 WBC 6.9 RBC 3.70 L Hgb 8.6 L Hct 28.5 L MCV 76.9 L D MCH 23.4 L MCHC 30.4 L RDW 20.8 H Plt Count 250 MPV 7.9 Neut % (Auto) 63.2 Lymph % (Auto) 17.0 L Carbon % (Auto) 16.7 H Eos % (Auto) 2.0 Baso % (Auto) 1.1 Neut # 4.4 Lymph # 1.2 Carbon # 1.1 H Eos # 0.1 Baso # 0.1 Retic Count PT 14.8 H INR 1.3 APTT 35 H Sodium 135 Potassium 5.3 H Chloride 96 L Carbon Dioxide 33 H Anion Gap 12 BUN 29 H Creatinine 1.6 H Est GFR ( Amer) 53 Est GFR (Non-Af Amer) 44 POC Glucose (mg/dL) Random Glucose 85 Calcium 7.8 L Magnesium Ferritin Total Bilirubin 0.9 AST 38 ALT 31 Alkaline Phosphatase 84 Troponin I NT-Pro-B Natriuret Pep 5320 H Total Protein 8.7 H Albumin 3.8 Globulin 4.9 H Albumin/Globulin Ratio 0.8 L TSH 3rd Generation Urine Color Urine Clarity Urine pH Ur Specific Solo Urine Protein Urine Glucose (UA) Urine Ketones Urine Blood Urine Nitrate Urine Bilirubin Urine Urobilinogen Ur Leukocyte Esterase Urine WBC (Auto) Urine RBC (Auto) Urine Bacteria Hyaline Casts Ur Random Creatinine Ur Random Sodium Ur Random Urea Nitrogn Urine Opiates Screen Urine Methadone Screen Ur Barbiturates Screen Ur Phencyclidine Scrn Ur Amphetamines Screen U Benzodiazepines Scrn U Oth Cocaine Metabols U Cannabinoids Screen Influenza Typ A,B (EIA) 03/05/17 03/05/17 03/05/17 21:11 21:34 22:20 WBC RBC Hgb Hct MCV MCH MCHC RDW Plt Count MPV Neut % (Auto) Lymph % (Auto) Carbon % (Auto) Eos % (Auto) Baso % (Auto) Neut # Lymph # Carbon # Eos # Baso # Retic Count PT INR APTT Sodium Potassium Chloride Carbon Dioxide Anion Gap BUN Creatinine Est GFR ( Amer) Est GFR (Non-Af Amer) POC Glucose (mg/dL) Random Glucose Calcium Magnesium 1.7 Ferritin Total Bilirubin AST ALT Alkaline Phosphatase Troponin I 0.0220 NT-Pro-B Natriuret Pep 5470 H Total Protein Albumin Globulin Albumin/Globulin Ratio TSH 3rd Generation 3.34 Urine Color Urine Clarity Urine pH Ur Specific Solo Urine Protein Urine Glucose (UA) Urine Ketones Urine Blood Urine Nitrate Urine Bilirubin Urine Urobilinogen Ur Leukocyte Esterase Urine WBC (Auto) Urine RBC (Auto) Urine Bacteria Hyaline Casts Ur Random Creatinine Ur Random Sodium Ur Random Urea Nitrogn Urine Opiates Screen Negative Urine Methadone Screen Negative Ur Barbiturates Screen Negative Ur Phencyclidine Scrn Negative Ur Amphetamines Screen Negative U Benzodiazepines Scrn Negative U Oth Cocaine Metabols Negative U Cannabinoids Screen Negative Influenza Typ A,B (EIA) Negative for flu a/b 03/05/17 03/06/17 03/06/17 22:22 05:59 07:44 WBC 7.2 RBC 3.57 L Hgb 8.4 L Hct 27.5 L MCV 77.1 L MCH 23.4 L MCHC 30.3 L RDW 21.1 H Plt Count 228 MPV 8.1 Neut % (Auto) 70.0 Lymph % (Auto) 11.0 L Carbon % (Auto) 18.0 H Eos % (Auto) 1.0 Baso % (Auto) 0.0 Neut # 5.0 Lymph # 0.8 L Carbon # 1.3 H Eos # 0.0 Baso # 0.0 Retic Count PT INR APTT Sodium Potassium Chloride Carbon Dioxide Anion Gap BUN Creatinine Est GFR ( Amer) Est GFR (Non-Af Amer) POC Glucose (mg/dL) 119 H Random Glucose Calcium Magnesium Ferritin Total Bilirubin AST ALT Alkaline Phosphatase Troponin I NT-Pro-B Natriuret Pep Total Protein Albumin Globulin Albumin/Globulin Ratio TSH 3rd Generation Urine Color Yellow Urine Clarity Clear Urine pH 5.0 Ur Specific Solo 1.012 Urine Protein 1+ H Urine Glucose (UA) Normal Urine Ketones Negative Urine Blood Negative Urine Nitrate Negative Urine Bilirubin Negative Urine Urobilinogen 4.0 Ur Leukocyte Esterase Neg Urine WBC (Auto) < 1 Urine RBC (Auto) 1 Urine Bacteria Rare Hyaline Casts >20 H Ur Random Creatinine Ur Random Sodium Ur Random Urea Nitrogn Urine Opiates Screen Urine Methadone Screen Ur Barbiturates Screen Ur Phencyclidine Scrn Ur Amphetamines Screen U Benzodiazepines Scrn U Oth Cocaine Metabols U Cannabinoids Screen Influenza Typ A,B (EIA) 03/06/17 03/06/17 03/06/17 07:44 07:44 14:46 WBC RBC Hgb Hct MCV MCH MCHC RDW Plt Count MPV Neut % (Auto) Lymph % (Auto) Carbon % (Auto) Eos % (Auto) Baso % (Auto) Neut # Lymph # Carbon # Eos # Baso # Retic Count PT 14.8 H INR 1.3 APTT 33 Sodium 137 Potassium 4.4 Chloride 96 L Carbon Dioxide 35 H Anion Gap 11 BUN 29 H Creatinine 1.6 H Est GFR ( Amer) 53 Est GFR (Non-Af Amer) 44 POC Glucose (mg/dL) Random Glucose 100 Calcium 7.7 L Magnesium Ferritin Total Bilirubin 0.8 AST 22 ALT 10 L D Alkaline Phosphatase 81 Troponin I NT-Pro-B Natriuret Pep Total Protein 6.8 Albumin 3.5 Globulin 3.3 Albumin/Globulin Ratio 1.1 TSH 3rd Generation Urine Color Urine Clarity Urine pH Ur Specific Solo Urine Protein Urine Glucose (UA) Urine Ketones Urine Blood Urine Nitrate Urine Bilirubin Urine Urobilinogen Ur Leukocyte Esterase Urine WBC (Auto) Urine RBC (Auto) Urine Bacteria Hyaline Casts Ur Random Creatinine 139.1 Ur Random Sodium 52 Ur Random Urea Nitrogn 502 Urine Opiates Screen Urine Methadone Screen Ur Barbiturates Screen Ur Phencyclidine Scrn Ur Amphetamines Screen U Benzodiazepines Scrn U Oth Cocaine Metabols U Cannabinoids Screen Influenza Typ A,B (EIA) 03/06/17 03/06/17 17:26 17:26 WBC RBC Hgb Hct MCV MCH MCHC RDW Plt Count MPV Neut % (Auto) Lymph % (Auto) Carbon % (Auto) Eos % (Auto) Baso % (Auto) Neut # Lymph # Carbon # Eos # Baso # Retic Count 1.9 H D PT INR APTT Sodium Potassium Chloride Carbon Dioxide Anion Gap BUN Creatinine Est GFR ( Amer) Est GFR (Non-Af Amer) POC Glucose (mg/dL) Random Glucose Calcium Magnesium Ferritin 15.3 Total Bilirubin AST ALT Alkaline Phosphatase Troponin I NT-Pro-B Natriuret Pep Total Protein Albumin Globulin Albumin/Globulin Ratio TSH 3rd Generation Urine Color Urine Clarity Urine pH Ur Specific Solo Urine Protein Urine Glucose (UA) Urine Ketones Urine Blood Urine Nitrate Urine Bilirubin Urine Urobilinogen Ur Leukocyte Esterase Urine WBC (Auto) Urine RBC (Auto) Urine Bacteria Hyaline Casts Ur Random Creatinine Ur Random Sodium Ur Random Urea Nitrogn Urine Opiates Screen Urine Methadone Screen Ur Barbiturates Screen Ur Phencyclidine Scrn Ur Amphetamines Screen U Benzodiazepines Scrn U Oth Cocaine Metabols U Cannabinoids Screen Influenza Typ A,B (EIA) Attending/Attestation - Attestation I have personally seen and examined this patient.: Yes I have fully participated in the care of the patient.: Yes I have reviewed all pertinent clinical information: Yes Notes (Text): Patient seen and examined; I agree with the resident's note as above with the following additions/edits: 67 yo M w/ pmh of htn, CHF w/ systolic dysfunction, liver cirrhosis, recurrent abd ascites, admitted with acute decompensated systolic CHF and acute renal failure; Patient gives history that CHF symptoms started worsening soon after discharge about 1 month ago; 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 seen 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 in close to 1 year; is somewhat unclear about his diuretics but does mention that he takes lasix mostly only once a day (in the evening), doesn't take morning dose due to it interfering with his going outside; On exam, patient appears markedly total body fluid and volume overloaded with anasarca, distended abd and elevated JVD (seen when sitting upright); Rather than being over-diuresed, etiology of renal failure is likely from increased venous congestion; however, concern is for intra-abdominal htn from ascites which can worsen renal function; Proteinuria seen on UA multiple times; needs further workup; -Recommend abd paracentesis as soon as possible; important to give IV albumin if large volume removed to avoid precipitating hepatorenal syndrome; -Increase IV lasix 40 mg to q8h; -Restart spironolactone after paracentesis (if BP stable); -Hold entresto (sacubitril/valsartan) temporarily; should restart as bid dosing after paracentesis and titrate upward (don't see need for losartan); -f/u cardio recs; may benefit from inotropic support if diuresis unsuccessful; -Recommend catheter until kidney and bladder US done (though patient refusing); -Checking bladder US w/ post-void residual volume measurement; -Checking urine microalbumin, protein and creatinine; -Checking C3 and C4 -Further renal workup pending the above 03/06/17 18:52
--- NOTE | 2017-03-06 14:52 | CP.PCM.CON ---
History of Present Illness - History of Present Illness History of Present Illness: 67 y/o male with PMHx of CHF and AICD in 2012, HTN, Liver cirrhosis, recurrent pleural effusions who is referred to the hospital for dyspnea and cough. Pt reports worsening dyspnea for 2 weeks with increasing abdominal distension. He also reports weeping edema in b/l LE. He states he breaths better if he is sitting up. He is unable to breath if he is lying flat. Denies chest pain, fever , chills. States he has been compliant with his medications and has been eating a low salt diet. Review of Systems - Review of Systems All systems: reviewed and no additional remarkable complaints except (See HPI, rest negative) Past Patient History - Infectious Disease Hx of Infectious Diseases: None - Past Medical History & Family History Past Medical History?: Yes - Past Social History Smoking Status: Former Smoker - CARDIAC Hx Congestive Heart Failure: Yes Hx Hypercholesterolemia: Yes Hx Hypertension: Yes Hx Pacemaker: Yes (pt states only defibrillator) - PULMONARY Hx Respiratory Disorders: No - NEUROLOGICAL Hx Neurological Disorder: No - HEENT Hx HEENT Problems: No - RENAL Hx Chronic Kidney Disease: No - ENDOCRINE/METABOLIC Hx Endocrine Disorders: Yes Hx Diabetes Mellitus Type 2: Yes - HEMATOLOGICAL/ONCOLOGICAL Hx Blood Transfusions: Yes Hx Blood Transfusion Reaction: No - INTEGUMENTARY Hx Dermatological Problems: No - MUSCULOSKELETAL/RHEUMATOLOGICAL Hx Arthritis: Yes - GASTROINTESTINAL Hx Gastrointestinal Disorders: Yes Other/Comment: ascites - GENITOURINARY/GYNECOLOGICAL Hx Genitourinary Disorders: No - PSYCHIATRIC Hx Substance Use: No - SURGICAL HISTORY Hx Appendectomy: Yes - ANESTHESIA Hx Anesthesia: Yes Hx Anesthesia Reactions: No Hx Malignant Hyperthermia: No Has any member of the family had a problem w/ anesthesia?: No Meds Allergies/Adverse Reactions: Allergies Allergy/AdvReac Type Severity Reaction Status Date / Time No Known Allergies Allergy Verified 03/05/17 20:14 - Medications Medications: Current Medications Benzonatate (Tessalon Perles) 100 mg PO TID PRN PRN Reason: Cough Last Admin: 03/06/17 04:18 Dose: 100 mg Carvedilol (Coreg) 12.5 mg PO BID KAYLEEN Last Admin: 03/06/17 10:08 Dose: 12.5 mg Furosemide (Lasix) 40 mg IVP BID KAYLEEN Last Admin: 03/06/17 10:08 Dose: 40 mg Sacubitril/Valsartan (Entresto 24 Mg-26 Mg) 1 tab PO DAILY KAYLEEN Last Admin: 03/06/17 10:07 Dose: 1 tab Physical Exam - Head Exam Head Exam: NORMAL INSPECTION - Eye Exam Eye Exam: Normal appearance - ENT Exam ENT Exam: Mucous Membranes Moist - Respiratory Exam Respiratory Exam: Decreased Breath Sounds (R>L) - Cardiovascular Exam Cardiovascular Exam: REGULAR RHYTHM, +S1, +S2 - GI/Abdominal Exam GI & Abdominal Exam: Diminished Bowel Sounds, Distended - Extremities Exam Extremities exam: Positive for: pedal edema - Neurological Exam Neurological exam: Alert, Oriented x3 Results - Vital Signs Recent Vital Signs: Last Vital Signs Temp 97.6 F 03/06/17 07:00 Pulse 79 03/06/17 07:00 Resp 20 03/06/17 07:00 BP 126/74 03/06/17 10:08 Pulse Ox 94 L 03/06/17 07:00 - Labs Result Diagrams: 03/06/17 07:44 03/06/17 07:44 Labs: Laboratory Results - last 24 hr 03/05/17 03/05/17 03/05/17 20:41 20:41 20:41 WBC 6.9 RBC 3.70 L Hgb 8.6 L Hct 28.5 L MCV 76.9 L D MCH 23.4 L MCHC 30.4 L RDW 20.8 H Plt Count 250 MPV 7.9 Neut % (Auto) 63.2 Lymph % (Auto) 17.0 L [place] % (Auto) 16.7 H Eos % (Auto) 2.0 Baso % (Auto) 1.1 Neut # 4.4 Lymph # 1.2 [place] # 1.1 H Eos # 0.1 Baso # 0.1 PT 14.8 H INR 1.3 APTT 35 H Sodium 135 Potassium 5.3 H Chloride 96 L Carbon Dioxide 33 H Anion Gap 12 BUN 29 H Creatinine 1.6 H Est GFR ( Amer) 53 Est GFR (Non-Af Amer) 44 POC Glucose (mg/dL) Random Glucose 85 Calcium 7.8 L Magnesium Total Bilirubin 0.9 AST 38 ALT 31 Alkaline Phosphatase 84 Troponin I NT-Pro-B Natriuret Pep 5320 H Total Protein 8.7 H Albumin 3.8 Globulin 4.9 H Albumin/Globulin Ratio 0.8 L TSH 3rd Generation Urine Color Urine Clarity Urine pH Ur Specific [place] Urine Protein Urine Glucose (UA) Urine Ketones Urine Blood Urine Nitrate Urine Bilirubin Urine Urobilinogen Ur Leukocyte Esterase Urine WBC (Auto) Urine RBC (Auto) Urine Bacteria Hyaline Casts Urine Opiates Screen Urine Methadone Screen Ur Barbiturates Screen Ur Phencyclidine Scrn Ur Amphetamines Screen U Benzodiazepines Scrn U Oth Cocaine Metabols U Cannabinoids Screen Influenza Typ A,B (EIA) 03/05/17 03/05/17 03/05/17 21:11 21:34 22:20 WBC RBC Hgb Hct MCV MCH MCHC RDW Plt Count MPV Neut % (Auto) Lymph % (Auto) [place] % (Auto) Eos % (Auto) Baso % (Auto) Neut # Lymph # [place] # Eos # Baso # PT INR APTT Sodium Potassium Chloride Carbon Dioxide Anion Gap BUN Creatinine Est GFR ( Amer) Est GFR (Non-Af Amer) POC Glucose (mg/dL) Random Glucose Calcium Magnesium 1.7 Total Bilirubin AST ALT Alkaline Phosphatase Troponin I 0.0220 NT-Pro-B Natriuret Pep 5470 H Total Protein Albumin Globulin Albumin/Globulin Ratio TSH 3rd Generation 3.34 Urine Color Urine Clarity Urine pH Ur Specific [place] Urine Protein Urine Glucose (UA) Urine Ketones Urine Blood Urine Nitrate Urine Bilirubin Urine Urobilinogen Ur Leukocyte Esterase Urine WBC (Auto) Urine RBC (Auto) Urine Bacteria Hyaline Casts Urine Opiates Screen Negative Urine Methadone Screen Negative Ur Barbiturates Screen Negative Ur Phencyclidine Scrn Negative Ur Amphetamines Screen Negative U Benzodiazepines Scrn Negative U Oth Cocaine Metabols Negative U Cannabinoids Screen Negative Influenza Typ A,B (EIA) Negative for flu a/b 03/05/17 03/06/17 03/06/17 22:22 05:59 07:44 WBC 7.2 RBC 3.57 L Hgb 8.4 L Hct 27.5 L MCV 77.1 L MCH 23.4 L MCHC 30.3 L RDW 21.1 H Plt Count 228 MPV 8.1 Neut % (Auto) 70.0 Lymph % (Auto) 11.0 L [place] % (Auto) 18.0 H Eos % (Auto) 1.0 Baso % (Auto) 0.0 Neut # 5.0 Lymph # 0.8 L [place] # 1.3 H Eos # 0.0 Baso # 0.0 PT INR APTT Sodium Potassium Chloride Carbon Dioxide Anion Gap BUN Creatinine Est GFR ( Amer) Est GFR (Non-Af Amer) POC Glucose (mg/dL) 119 H Random Glucose Calcium Magnesium Total Bilirubin AST ALT Alkaline Phosphatase Troponin I NT-Pro-B Natriuret Pep Total Protein Albumin Globulin Albumin/Globulin Ratio TSH 3rd Generation Urine Color Yellow Urine Clarity Clear Urine pH 5.0 Ur Specific [place] 1.012 Urine Protein 1+ H Urine Glucose (UA) Normal Urine Ketones Negative Urine Blood Negative Urine Nitrate Negative Urine Bilirubin Negative Urine Urobilinogen 4.0 Ur Leukocyte Esterase Neg Urine WBC (Auto) < 1 Urine RBC (Auto) 1 Urine Bacteria Rare Hyaline Casts >20 H Urine Opiates Screen Urine Methadone Screen Ur Barbiturates Screen Ur Phencyclidine Scrn Ur Amphetamines Screen U Benzodiazepines Scrn U Oth Cocaine Metabols U Cannabinoids Screen Influenza Typ A,B (EIA) 03/06/17 03/06/17 07:44 07:44 WBC RBC Hgb Hct MCV MCH MCHC RDW Plt Count MPV Neut % (Auto) Lymph % (Auto) [place] % (Auto) Eos % (Auto) Baso % (Auto) Neut # Lymph # [place] # Eos # Baso # PT 14.8 H INR 1.3 APTT 33 Sodium 137 Potassium 4.4 Chloride 96 L Carbon Dioxide 35 H Anion Gap 11 BUN 29 H Creatinine 1.6 H Est GFR ( Amer) 53 Est GFR (Non-Af Amer) 44 POC Glucose (mg/dL) Random Glucose 100 Calcium 7.7 L Magnesium Total Bilirubin 0.8 AST 22 ALT 10 L D Alkaline Phosphatase 81 Troponin I NT-Pro-B Natriuret Pep Total Protein 6.8 Albumin 3.5 Globulin 3.3 Albumin/Globulin Ratio 1.1 TSH 3rd Generation Urine Color Urine Clarity Urine pH Ur Specific [place] Urine Protein Urine Glucose (UA) Urine Ketones Urine Blood Urine Nitrate Urine Bilirubin Urine Urobilinogen Ur Leukocyte Esterase Urine WBC (Auto) Urine RBC (Auto) Urine Bacteria Hyaline Casts Urine Opiates Screen Urine Methadone Screen Ur Barbiturates Screen Ur Phencyclidine Scrn Ur Amphetamines Screen U Benzodiazepines Scrn U Oth Cocaine Metabols U Cannabinoids Screen Influenza Typ A,B (EIA) Assessment & Plan (1) Dyspnea Status: Acute (2) Congestive heart failure Status: Acute (3) Pleural effusion Status: Acute (4) Ascites Status: Acute Priority: High (5) COPD (chronic obstructive pulmonary disease) Status: Acute - Assessment and Plan (Free Text) Plan: Dyspnea is likely due to distended abdomen and pleural effusion Will recommend thorocentesis and paracentesis Lasix Bronchodilators Start Advair 500/50 mcg one puff daily Oxygen supplementation, especially at night DVT/GI prophalaxis
[2017-03-06 15:32] LABS: CREATININE, RANDOM URINE 139.1 mg/dL
[2017-03-06] MEDS ORDERED: Albuterol HFA 90 mcg/actuation (8 g) INH PRN (17:53)
--- NOTE | 2017-03-06 17:55 | CP.PCM.CON ---
History of Present Illness - History of Present Illness History of Present Illness: I was asked to evaluate patient by the hospitalist team. Patient is a 67 year old male with a history of sichemic cardiomyopathy, s/p BIVAICD, HTN who presents with recurrent heart failure. The patient has been admitted on multiple occasions for CHF, and has had multiple throacentesis. He returns after one week with recurrent heart failure. The patient denies chest pain. Review of Systems - Constitutional Constitutional: Weakness - EENT Eyes: absent: As Per HPI, Blind Spots, Blurred Vision, Change in Vision, Decreased Night Vision, Diplopia, Discharge, Dry Eye, Exophthalmos, Floaters, Irritation, Itchy Eyes, Loss of Peripheral Vision, Pain, Photophobia, Requires Corrective Lenses, Sees Flashes, Spots in Vision, Tunnel Vision, Other Visual Disturbances, Loss of Vision, Other Ears: absent: As Per HPI, Decreased Hearing, Ear Discharge, Ear Pain, Tinnitus, Abnormal Hearing, Disequilibrium, Dizziness, Other Nose/Mouth/Throat: absent: As Per HPI, Epistaxis, Nasal Congestion, Nasal Discharge, Nasal Obstruction, Nasal Trauma, Nose Pain, Post Nasal Drip, Sinus Pain, Sinus Pressure, Bleeding Gums, Change in Voice, Dental Pain, Dry Mouth, Dysphagia, Halitosis, Hoarsness, Lip Swelling, Mouth Lesions, Mouth Pain, Odynophagia, Sore Throat, Throat Swelling, Tongue Swelling, Facial Pain, Neck Pain, Neck Mass, Other - Cardiovascular Cardiovascular: Dyspnea - Respiratory Respiratory: Dyspnea - Gastrointestinal Gastrointestinal: absent: As Per HPI, Abdominal Pain, Belching, Bloating, Change in Bowel Habits, Change in Stool Character, Coffee Ground Emesis, Constipation, Cramping, Diarrhea, Dyspepsia, Dysphagia, Early Satiety, Excessive Flatus, Fecal Incontinence, Heartburn, Hematemesis, Hematochezia, Loose Stools, Melena, Nausea, Odynophagia, Temesmus, Vomiting, Other - Musculoskeletal Musculoskeletal: absent: As Per HPI, Abnormal Gait, Arthralgias, Atrophy, Back Pain, Deformity, Joint Swelling, Limited Range of Motion, Loss of Height, Muscle Cramps, Muscle Weakness, Myalgias, Neck Pain, Numbness, Radiating Pain into Limb, Stiffness, Tingling, Other - Integumentary Integumentary: absent: As Per HPI, Acne, Alopecia, Bleeding Lesions, Change in Hair, Change in Nails, Change in Pigmentation, Changing Lesions, Dry Skin, Erythema, Furuncle, Hirsutism, Lesions, New Lesions, Non-Healing Lesions, Photosensitivity, Pruritus, Rash, Skin Pain, Skin Ulcer, Sores, Striae, Swelling , Unusual Bruising, Wounds, Jaundice, Other - Neurological Neurological: absent: As Per HPI, Abnormal Gait, Abnormal Hearing, Abnormal Movements, Abnormal Speech, Behavioral Changes, Burning Sensations, Confusion, Convulsions, Disequilibrium, Dizziness, Numbness, Focal Weakness, Frequent Falls , Headaches, Lack of Coordination, Loss of Vision, Memory Loss, Paresthesias, Radicular Pain, Restless Legs, Sensory Deficit, Syncope, Tingling, Tremor, Vertigo, Weakness, Other Visual Disturbances, Other - Psychiatric Psychiatric: absent: As Per HPI, Abnormal Sleep Pattern, Anhedonia, Anxiety, Auditory Hallucinations, Behavioral Changes, Change in Appetite, Change in Libido, Confusion, Depression, Difficulty Concentrating, Hallucinations, Homicidal Ideation, Hopelessness, Irritability, Memory Loss, Mood Swings, Panic Attacks, Paranoia, Suicidal Ideation, Visual Hallucinations, Tactile Hallucinations, Other - Endocrine Endocrine: absent: As Per HPI, Change in Body Appearance, Change in Libido, Cold Intolorance, Deepening of Voice, Excessive Sweating, Fatigue, Flushing, Heat Intolorance, Increase in Ring/Shoe/Hat Size, Palpitations, Polydipsia, Polyphagia, Polyuria, Other - Hematologic/Lymphatic Hematologic: absent: As Per HPI, Easy Bleeding, Easy Bruising, Lymphadenopathy, Other Past Patient History - Infectious Disease Hx of Infectious Diseases: None - Past Medical History & Family History Past Medical History?: Yes - Past Social History Smoking Status: Never Smoked Alcohol: Other (Former alcohol abuse.) Home Situation {Lives}: Alone - CARDIAC Hx Congestive Heart Failure: Yes Hx Hypercholesterolemia: Yes Hx Hypertension: Yes Hx Pacemaker: Yes (pt states only defibrillator) - PULMONARY Hx Respiratory Disorders: No - NEUROLOGICAL Hx Neurological Disorder: No - HEENT Hx HEENT Problems: No - RENAL Hx Chronic Kidney Disease: No - ENDOCRINE/METABOLIC Hx Endocrine Disorders: Yes Hx Diabetes Mellitus Type 2: Yes - HEMATOLOGICAL/ONCOLOGICAL Hx Blood Transfusions: Yes Hx Blood Transfusion Reaction: No - INTEGUMENTARY Hx Dermatological Problems: No - MUSCULOSKELETAL/RHEUMATOLOGICAL Hx Arthritis: Yes - GASTROINTESTINAL Hx Gastrointestinal Disorders: Yes Other/Comment: ascites - GENITOURINARY/GYNECOLOGICAL Hx Genitourinary Disorders: No - PSYCHIATRIC Hx Substance Use: No - SURGICAL HISTORY Hx Appendectomy: Yes - ANESTHESIA Hx Anesthesia: Yes Hx Anesthesia Reactions: No Hx Malignant Hyperthermia: No Has any member of the family had a problem w/ anesthesia?: No Meds Allergies/Adverse Reactions: Allergies Allergy/AdvReac Type Severity Reaction Status Date / Time No Known Allergies Allergy Verified 03/05/17 20:14 - Medications Medications: Current Medications Benzonatate (Tessalon Perles) 100 mg PO TID PRN PRN Reason: Cough Last Admin: 03/06/17 04:18 Dose: 100 mg Carvedilol (Coreg) 12.5 mg PO BID KAYLEEN Last Admin: 03/06/17 10:08 Dose: 12.5 mg Furosemide (Lasix) 40 mg IVP Q8H KAYLEEN Sacubitril/Valsartan (Entresto 24 Mg-26 Mg) 1 tab PO DAILY KAYLEEN Last Admin: 03/06/17 10:07 Dose: 1 tab Physical Exam - Constitutional Appears: Chronically Ill - Head Exam Head Exam: NORMAL INSPECTION - Eye Exam Eye Exam: Normal appearance - ENT Exam ENT Exam: Mucous Membranes Moist - Neck Exam Neck exam: Positive for: Full Rom Additional comments: elevated JVP - Respiratory Exam Respiratory Exam: Decreased Breath Sounds, Rales - Cardiovascular Exam Cardiovascular Exam: REGULAR RHYTHM - GI/Abdominal Exam GI & Abdominal Exam: Distended, Normal Bowel Sounds - Rectal Exam Rectal Exam: Deferred - Extremities Exam Extremities exam: Positive for: pedal edema - Back Exam Back exam: NORMAL INSPECTION - Neurological Exam Neurological exam: Alert, Oriented x3 - Psychiatric Exam Psychiatric exam: Normal Affect - Skin Skin Exam: Normal Color Results - Vital Signs Recent Vital Signs: Last Vital Signs Temp 97.6 F 03/06/17 07:00 Pulse 89 03/06/17 16:00 Resp 20 03/06/17 07:00 BP 126/74 03/06/17 10:08 Pulse Ox 94 L 03/06/17 07:00 - Labs Result Diagrams: 03/06/17 07:44 03/06/17 07:44 Labs: Laboratory Results - last 24 hr 03/05/17 03/05/17 03/05/17 20:41 20:41 20:41 WBC 6.9 RBC 3.70 L Hgb 8.6 L Hct 28.5 L MCV 76.9 L D MCH 23.4 L MCHC 30.4 L RDW 20.8 H Plt Count 250 MPV 7.9 Neut % (Auto) 63.2 Lymph % (Auto) 17.0 L [place] % (Auto) 16.7 H Eos % (Auto) 2.0 Baso % (Auto) 1.1 Neut # 4.4 Lymph # 1.2 [place] # 1.1 H Eos # 0.1 Baso # 0.1 Retic Count PT 14.8 H INR 1.3 APTT 35 H Sodium 135 Potassium 5.3 H Chloride 96 L Carbon Dioxide 33 H Anion Gap 12 BUN 29 H Creatinine 1.6 H Est GFR ( Amer) 53 Est GFR (Non-Af Amer) 44 POC Glucose (mg/dL) Random Glucose 85 Calcium 7.8 L Magnesium Total Bilirubin 0.9 AST 38 ALT 31 Alkaline Phosphatase 84 Troponin I NT-Pro-B Natriuret Pep 5320 H Total Protein 8.7 H Albumin 3.8 Globulin 4.9 H Albumin/Globulin Ratio 0.8 L TSH 3rd Generation Urine Color Urine Clarity Urine pH Ur Specific [place] Urine Protein Urine Glucose (UA) Urine Ketones Urine Blood Urine Nitrate Urine Bilirubin Urine Urobilinogen Ur Leukocyte Esterase Urine WBC (Auto) Urine RBC (Auto) Urine Bacteria Hyaline Casts Ur Random Creatinine Ur Random Sodium Ur Random Urea Nitrogn Urine Opiates Screen Urine Methadone Screen Ur Barbiturates Screen Ur Phencyclidine Scrn Ur Amphetamines Screen U Benzodiazepines Scrn U Oth Cocaine Metabols U Cannabinoids Screen Influenza Typ A,B (EIA) 03/05/17 03/05/17 03/05/17 21:11 21:34 22:20 WBC RBC Hgb Hct MCV MCH MCHC RDW Plt Count MPV Neut % (Auto) Lymph % (Auto) [place] % (Auto) Eos % (Auto) Baso % (Auto) Neut # Lymph # [place] # Eos # Baso # Retic Count PT INR APTT Sodium Potassium Chloride Carbon Dioxide Anion Gap BUN Creatinine Est GFR ( Amer) Est GFR (Non-Af Amer) POC Glucose (mg/dL) Random Glucose Calcium Magnesium 1.7 Total Bilirubin AST ALT Alkaline Phosphatase Troponin I 0.0220 NT-Pro-B Natriuret Pep 5470 H Total Protein Albumin Globulin Albumin/Globulin Ratio TSH 3rd Generation 3.34 Urine Color Urine Clarity Urine pH Ur Specific [place] Urine Protein Urine Glucose (UA) Urine Ketones Urine Blood Urine Nitrate Urine Bilirubin Urine Urobilinogen Ur Leukocyte Esterase Urine WBC (Auto) Urine RBC (Auto) Urine Bacteria Hyaline Casts Ur Random Creatinine Ur Random Sodium Ur Random Urea Nitrogn Urine Opiates Screen Negative Urine Methadone Screen Negative Ur Barbiturates Screen Negative Ur Phencyclidine Scrn Negative Ur Amphetamines Screen Negative U Benzodiazepines Scrn Negative U Oth Cocaine Metabols Negative U Cannabinoids Screen Negative Influenza Typ A,B (EIA) Negative for flu a/b 03/05/17 03/06/17 03/06/17 22:22 05:59 07:44 WBC 7.2 RBC 3.57 L Hgb 8.4 L Hct 27.5 L MCV 77.1 L MCH 23.4 L MCHC 30.3 L RDW 21.1 H Plt Count 228 MPV 8.1 Neut % (Auto) 70.0 Lymph % (Auto) 11.0 L [place] % (Auto) 18.0 H Eos % (Auto) 1.0 Baso % (Auto) 0.0 Neut # 5.0 Lymph # 0.8 L [place] # 1.3 H Eos # 0.0 Baso # 0.0 Retic Count PT INR APTT Sodium Potassium Chloride Carbon Dioxide Anion Gap BUN Creatinine Est GFR ( Amer) Est GFR (Non-Af Amer) POC Glucose (mg/dL) 119 H Random Glucose Calcium Magnesium Total Bilirubin AST ALT Alkaline Phosphatase Troponin I NT-Pro-B Natriuret Pep Total Protein Albumin Globulin Albumin/Globulin Ratio TSH 3rd Generation Urine Color Yellow Urine Clarity Clear Urine pH 5.0 Ur Specific [place] 1.012 Urine Protein 1+ H Urine Glucose (UA) Normal Urine Ketones Negative Urine Blood Negative Urine Nitrate Negative Urine Bilirubin Negative Urine Urobilinogen 4.0 Ur Leukocyte Esterase Neg Urine WBC (Auto) < 1 Urine RBC (Auto) 1 Urine Bacteria Rare Hyaline Casts >20 H Ur Random Creatinine Ur Random Sodium Ur Random Urea Nitrogn Urine Opiates Screen Urine Methadone Screen Ur Barbiturates Screen Ur Phencyclidine Scrn Ur Amphetamines Screen U Benzodiazepines Scrn U Oth Cocaine Metabols U Cannabinoids Screen Influenza Typ A,B (EIA) 03/06/17 03/06/17 03/06/17 07:44 07:44 14:46 WBC RBC Hgb Hct MCV MCH MCHC RDW Plt Count MPV Neut % (Auto) Lymph % (Auto) [place] % (Auto) Eos % (Auto) Baso % (Auto) Neut # Lymph # [place] # Eos # Baso # Retic Count PT 14.8 H INR 1.3 APTT 33 Sodium 137 Potassium 4.4 Chloride 96 L Carbon Dioxide 35 H Anion Gap 11 BUN 29 H Creatinine 1.6 H Est GFR ( Amer) 53 Est GFR (Non-Af Amer) 44 POC Glucose (mg/dL) Random Glucose 100 Calcium 7.7 L Magnesium Total Bilirubin 0.8 AST 22 ALT 10 L D Alkaline Phosphatase 81 Troponin I NT-Pro-B Natriuret Pep Total Protein 6.8 Albumin 3.5 Globulin 3.3 Albumin/Globulin Ratio 1.1 TSH 3rd Generation Urine Color Urine Clarity Urine pH Ur Specific [place] Urine Protein Urine Glucose (UA) Urine Ketones Urine Blood Urine Nitrate Urine Bilirubin Urine Urobilinogen Ur Leukocyte Esterase Urine WBC (Auto) Urine RBC (Auto) Urine Bacteria Hyaline Casts Ur Random Creatinine 139.1 Ur Random Sodium 52 Ur Random Urea Nitrogn 502 Urine Opiates Screen Urine Methadone Screen Ur Barbiturates Screen Ur Phencyclidine Scrn Ur Amphetamines Screen U Benzodiazepines Scrn U Oth Cocaine Metabols U Cannabinoids Screen Influenza Typ A,B (EIA) 03/06/17 17:26 WBC RBC Hgb Hct MCV MCH MCHC RDW Plt Count MPV Neut % (Auto) Lymph % (Auto) [place] % (Auto) Eos % (Auto) Baso % (Auto) Neut # Lymph # [place] # Eos # Baso # Retic Count 1.9 H D PT INR APTT Sodium Potassium Chloride Carbon Dioxide Anion Gap BUN Creatinine Est GFR ( Amer) Est GFR (Non-Af Amer) POC Glucose (mg/dL) Random Glucose Calcium Magnesium Total Bilirubin AST ALT Alkaline Phosphatase Troponin I NT-Pro-B Natriuret Pep Total Protein Albumin Globulin Albumin/Globulin Ratio TSH 3rd Generation Urine Color Urine Clarity Urine pH Ur Specific [place] Urine Protein Urine Glucose (UA) Urine Ketones Urine Blood Urine Nitrate Urine Bilirubin Urine Urobilinogen Ur Leukocyte Esterase Urine WBC (Auto) Urine RBC (Auto) Urine Bacteria Hyaline Casts Ur Random Creatinine Ur Random Sodium Ur Random Urea Nitrogn Urine Opiates Screen Urine Methadone Screen Ur Barbiturates Screen Ur Phencyclidine Scrn Ur Amphetamines Screen U Benzodiazepines Scrn U Oth Cocaine Metabols U Cannabinoids Screen Influenza Typ A,B (EIA) - EKG Data EKG Interpreted by: Myself Assessment & Plan (1) NYHA class 3 acute on chronic systolic heart failure Assessment and Plan: patient has severe cardiomyopathy and likely end stage heart failure. he likely will benefit from inotropic support. recommend placement of PICC line, then recommend milrinone 0.375 mcg/kg/min. continue diuresis, and Entresto Status: Acute
--- NOTE | 2017-03-06 18:30 | US ---
HISTORY: ascites COMPARISON: 11/04/2016 abdominal ultrasound TECHNIQUE: Sonographic evaluation of the abdomen. FINDINGS: LIVER: Measures 17.8 cm. Hepatopedal blood flow. Fatty infiltration manifest ultrasonographically as increased echogenicity of the liver parenchyma. Nodular contour to the liver of findings seen previously GALLBLADDER: Cholelithiasis. Gallbladder wall thickness 5.9 mm accentuated by collapsed gallbladder. No evidence of sonographic Dunbar's sign. COMMON BILE DUCT: Measures 3.6 mm. No stones. No dilatation. PANCREAS: Unremarkable as visualized. No mass. No ductal dilatation. RIGHT KIDNEY: Measures 5.9 x 10.7cm. Normal echogenicity. No calculus, mass, or hydronephrosis. LEFT KIDNEY: Measures 5.9 x 11.6cm. Normal echogenicity. No calculus, mass, or hydronephrosis. SPLEEN: Normal in size and contour. No mass. AORTA: No aneurysmal dilatation. IVC: Unremarkable. OTHER FINDINGS: Intra-abdominal ascites again identified, incompletely visualized. IMPRESSION: Cholelithiasis. No sonographic evidence of acute cholecystitis. Cirrhotic appearing liver similar to that seen previously. No focal abnormalities. Intra-abdominal ascites again identified although difficult to quantify.
[2017-03-06] MEDS: Fluticasone-Salmeterol 500-50mcg Diskus INH SCH (19:21)
[2017-03-06 20:25] LABS: FOLATE 10.4 ng/mL
--- NOTE | 2017-03-06 23:13 | CARD ---
APPROVED REPORT EKG Measurement Heart [id number] <Conclusion> Ventricular-paced rhythm a 81 bpm Abnormal ECG
--- NOTE | 2017-03-07 06:24 | CP.PCM.PN ---
<Chaka Kenney - Last Filed: 03/07/17 15:37> Subjective - Date & Time of Evaluation Date of Evaluation: 03/07/17 Time of Evaluation: 07:00 - Subjective Subjective: Medicine note for Dr. Sanz Patient seen and examined at bedside. Patient reports improvement in breathing status and cough since starting breathing treatments yesterday. Patient has no acute complaints at the moment and is optimistic for future therapy. Patient is for thoracentesis/paracentesis later today. Objective - Vital Signs/Intake and Output Vital Signs (last 24 hours): Temp Pulse Resp BP Pulse Ox 97.8 F 72 20 123/86 98 03/07/17 04:00 03/07/17 04:00 03/07/17 04:00 03/07/17 04:00 03/07/17 04:00 Intake and Output: 03/06/17 03/07/17 18:59 06:59 Intake Total 240 Output Total 1000 Balance -760 - Medications Medications: Current Medications Albuterol (Ventolin Hfa 90 Mcg/Actuation (8 G)) 1 puff INH RQ6 PRN PRN Reason: Shortness of Breath Benzonatate (Tessalon Perles) 100 mg PO TID PRN PRN Reason: Cough Last Admin: 03/07/17 00:51 Dose: 100 mg Carvedilol (Coreg) 12.5 mg PO BID [facility] Last Admin: 03/06/17 18:11 Dose: 12.5 mg Furosemide (Lasix) 40 mg IVP Q8H [facility] Last Admin: 03/07/17 00:21 Dose: 40 mg Sacubitril/Valsartan (Entresto 24 Mg-26 Mg) 1 tab PO BID [facility] Fluticasone/Salmeterol (Advair Diskus 500/50) 1 puff INH RQ12 [facility] Last Admin: 03/06/17 19:21 Dose: 1 puff - Labs Labs: 03/06/17 07:44 03/06/17 07:44 PT 14.8 SECONDS (9.7-12.2) H 03/06/17 07:44 INR 1.3 03/06/17 07:44 APTT 33 SECONDS (21-34) 03/06/17 07:44 - Constitutional Appears: No Acute Distress - Head Exam Head Exam: ATRAUMATIC, NORMOCEPHALIC - Eye Exam Eye Exam: EOMI, PERRL - ENT Exam ENT Exam: Mucous Membranes Moist - Respiratory Exam Respiratory Exam: Decreased Breath Sounds. absent: Rales, Rhonchi, Wheezes - Cardiovascular Exam Cardiovascular Exam: REGULAR RHYTHM, +S1, +S2 - GI/Abdominal Exam GI & Abdominal Exam: Distended, Soft, Tenderness (tender to deep palpation), Normal Bowel Sounds - Extremities Exam Extremities Exam: absent: Tenderness Additional comments: 2+ bilateral non-pitting leg edema. bilateral skin thickening. not actively weeping - Neurological Exam Neurological Exam: Alert, Awake, Oriented x3 - Psychiatric Exam Psychiatric exam: Anxious - Skin Skin Exam: Dry, Warm Assessment and Plan - Assessment and Plan (Free Text) Plan: Ascites GI (Tao) Heart healthy diet Salt restriction Dietary consult for education on salt restriction Meds: * Lasix 40 mg IV Q8 per Nephro recommendation Abdominal/renal ultrasound showed cirrhotic appearing liver as well as cholelithiasis without evidence of acute cholecystitis. On 03/07/17: Thoracentesis: 1200 cc of straw colored fluid and Paracentesis: 2400 cc of straw colored fluid Pleural effusion on right Pulm (John), Dr. Reis covering, help appreciated thoracentesis/paracentesis Per Dr. Reis's recommendation, started Advair 500-50 Q12 [facility] and Ventolin Q6 prn shortness of breath Systolic CHF (congestive heart failure) Cards (Nasim) Meds: * Lasix 40 mg IV Q8 per Nephro recommendation. Per nephro, patient will need Lasix BID as an outpatient. * No statin given prior lipid panel (HDL 33, LDL 34, Chol 72, TG 39) * Coreg 12.5 PO BID * Entresto 24/26 PO once daily has been increased to BID as of 03/07. Per nephro , will need to eventually titrate to the max dose BID. * Aldactone 25 mg PO BID per nephro * ASA 81 PO QD - hold until thora/para--will restart on 03/08 Dr. Rouse recommends IV milrinone and PICC line was placed on 03/07/17. Per nephro, patient is not at maximum management with regards to patient's diuresis and Entresto. Medications have been adjusted and increased. If the patient does not respond to the increased dosages by tomorrow 03/08/17, then Milrinone will be considered. Per Dr. Archer, he has spoken with Dr. Rouse and they are in agreement. Hypertension Coreg 12.5 PO BID Entresto 24/26 PO once daily has been increased to BID as of 03/07. Per nephro, will need to eventually titrate to the max dose BID. Prophylactic measure Heparin 5000 SC Q8 starting 03/08. previously held due to anticipated procedure SCD C/I due to LE Edema Heart healthy diet Case DW Dr. Umu Kenney PGY-1 <Mer Sanz V - Last Filed: 03/09/17 16:58> Objective - Vital Signs/Intake and Output Vital Signs (last 24 hours): Temp Pulse Resp BP Pulse Ox 97.8 F 81 20 105/58 L 96 03/09/17 08:35 03/09/17 08:35 03/09/17 08:35 03/09/17 09:59 03/09/17 08:35 Intake and Output: 03/09/17 03/09/17 06:59 18:59 Output Total 100 Balance -100 - Medications Medications: Current Medications Albuterol (Ventolin Hfa 90 Mcg/Actuation (8 G)) 1 puff INH RQ6 PRN PRN Reason: Shortness of Breath Aspirin (Aspirin Chewable) 81 mg PO DAILY [facility] Last Admin: 03/09/17 09:59 Dose: 81 mg Benzonatate (Tessalon Perles) 100 mg PO TID PRN PRN Reason: Cough Last Admin: 03/08/17 18:23 Dose: 100 mg Carvedilol (Coreg) 12.5 mg PO BID [facility] Last Admin: 03/09/17 09:59 Dose: 12.5 mg Diphenhydramine HCl (Benadryl) 25 mg PO Q6 PRN PRN Reason: Itching / Pruritus Last Admin: 03/09/17 09:59 Dose: 25 mg Ergocalciferol (Drisdol 50,000 Intl Units Cap) 1 cap PO Q7D [facility] Last Admin: 03/08/17 14:11 Dose: 1 cap Furosemide (Lasix) 40 mg IVP Q6H [facility] Last Admin: 03/09/17 10:44 Dose: Not Given Heparin Sodium (Porcine) (Heparin) 5,000 units SC Q8 [facility] Last Admin: 03/09/17 06:21 Dose: 5,000 units Ferric Sodium Gluconate Complex 125 mg/ Sodium Chloride 110 mls @ 110 mls/hr IVPB DAILY [facility] Stop: 03/15/17 11:31 Last Admin: 03/09/17 10:43 Dose: 110 mls/hr Milrinone Lactate/Dextrose 20 (mg/ Sodium Chloride) 100 mls @ 11.53 mls/hr IV .Q8H41M KAYLEEN; 0.375 MCG/KG/MIN PRN Reason: Protocol Last Admin: 03/07/17 13:12 Dose: Not Given Sacubitril/Valsartan (Entresto 49 Mg-51 Mg) 1 tab PO BID [facility] Last Admin: 03/09/17 10:00 Dose: 1 tab Fluticasone/Salmeterol (Advair Diskus 500/50) 1 puff INH RQ12 [facility] Last Admin: 03/09/17 08:40 Dose: 1 puff Spironolactone (Aldactone) 25 mg PO BID [facility] Last Admin: 03/09/17 10:43 Dose: Not Given - Labs Labs: 03/09/17 08:22 03/09/17 08:22 PT 14.7 SECONDS (9.7-12.2) H 03/07/17 09:28 INR 1.3 03/07/17 09:28 APTT 33 SECONDS (21-34) 03/06/17 07:44 Attending/Attestation - Attestation I have personally seen and examined this patient.: Yes I have fully participated in the care of the patient.: Yes I have reviewed all pertinent clinical information, including history, physical exam and plan: Yes Notes (Text): This is a late computer entry for 03/07/2017. Patient seen, examined, and case discussed with daytime resident. Patient seen status post thoracentesis paracentesis and PICC line placement. During thoracentesis about 1.2 L of straw-colored fluid was removed. During paracentesis about 2.4 L of straw-colored fluid removed. IR has also placed PICC line for possible anticipated milrinone drip given severity of congestive heart failure. Patient seen status post procedures. Patient tolerated procedure note acute complaints. Discussed with nephrology, will attempt to optimize Lasix diuresis prior to starting milrinone drip. Nephrology will confer with cardiology prior to start milrinone drip. Nephrology will also tirate up Entresto. Patient has not had maximal diuresis and prior hospitalizations. Patient continues to refuse . I have explained to patient the reason why for in addition to rule out post renal causes is to measure how much urine he has removed via the diuresis but he refuses . Patient seen prior to leaving my shift. As per request of the patient I have also spoken with his cousin Sadia who also understands the patient has cardiomyopathy and liver cirrhosis which have resulted in him being edematous around the belly legs and lungs. Assessment/Plan 1) Ascites Liver cirrhosis * Contributing factors: liver cirrhosis, dilated cardiomyopathy, strong alcohol use (6, 16 ounce Griffin lights since age 17-50s) * s/p Paracentesis and thoracentesis 03/07/17 * During thoracentesis about 1.2 L of straw-colored fluid was removed. During paracentesis about 2.4 L of straw-colored fluid removed. IR has also placed PICC line for possible anticipated milrinone drip given severity of congestive heart failure. * GI (Dr. Tao's group on case)-->help appreciated * Fluid studies were collected; No SBP on ascitic fluid * Signed off 03/07; Recommend from outpatient following and evaluation at tertiary care transplant facility. * Heart healthy diet * Salt restriction * Dietary consult for education on salt restriction * Medications: * Lasix 40 mg IV Q8 per Nephro recommendation * Aldactone held until after paracentesis and then to be resumed * Abdominal US ordered * Cholelithiasis. No sonographic evidence of acute cholecystitis. Cirrhotic appearing liver similar to that seen previously. No focal abnormalities. Intra- abdominal ascites again identified although difficult to quantify. Also remarks on Kidneys on the same ultrasound 2) Systolic CHF (congestive heart failure) EF: 30-35% * Cardiology (Nasim) on the case-->help appreciated * s/p PICC placement for anticipated for milirone drip * Meds: * increased to Lasix 40 mg IV Q8 per Nephrology recommendation; Aldactone held until after paracentesis * No statin given prior lipid panel (HDL 33, LDL 34, Chol 72, TG 39)-->will restart given CAD hx * Coreg 12.5 PO BID * Nephrology has resumed and titrated up Entresto 24/26 PO BID * patient is not ASA 81 PO QDaily -Will restart tomorrow. * Echocardiogram (01/11/17): Mild to moderate concentric left ventricular hypertrophy. left ventricle systolic function is moderately impaired EF: 30-35% , moderate septal hypokinesis consistent with CAD, left ventricular diastolic function is normal. Left atrium is moderately dilated. Right atrium is moderate dilated. Mitral regurgitation is mild. Mild to mod tricupsid regurgitation, mild -moderate pulm HTN * Patient has refused with nursing staff to remain on telemetry and has refused . 3) Pleural effusion * Contributing factors: liver cirrhosis, dilated cardiomyopathy * Pulm (John), Dr. Reis covering, help appreciated * Per Dr. Reis's recommendation, started Advair 500-50 Q12 KAYLEEN and Ventolin Q6 prn shortness of breath 4) Anemia * his suspected secondary to chronic disease * Reticulocyte count, iron studies, b12, folate, and occult blood ordered 03/06 * patient's particular count is 1.9, low iron and low iron saturation, normal ferritin, negative stool occult blood, pending haptoglobin 5) History of Hypertension * Coreg 12.5 PO BID * Nephrology has resumed and titrated up Entresto 24/26 PO BID * increased to Lasix 40 mg IV Q8H 6) Prophylactic measure * Lovenox 40 PO QD - hold until thora/para * SCD C/I due to LE Edema * Heart healthy diet, salt restriction * Aunt Sia Ravi [phone] was spoken with over the phone by the medical team and informed of the patient's current status during rounds today by myself with consent to share medical information by the patient on 03/06/17
--- NOTE | 2017-03-07 06:31 | CP.PCM.PN ---
<Andree Baez - Last Filed: 03/07/17 08:56> Subjective - Date & Time of Evaluation Date of Evaluation: 03/07/17 Time of Evaluation: 08:57 - Subjective Subjective: PGY2 GI Note for Dr. Edwards Patient seen and examined at bedside. Nursing reports no acute events overnight. Patient continues to complain of some SOB and b/l LE swelling. Patient's abdomen is still distended but not painful. He is to have paracentesis done today. Patient's nonproductive cough has improved. Denied headache, dizziness, fever, chills, chest pain, nausea, vomiting, bowel/bladder complaints, pain in his legs bilaterally. Objective - Vital Signs/Intake and Output Vital Signs (last 24 hours): Temp Pulse Resp BP Pulse Ox 97.8 F 72 20 123/86 98 03/07/17 04:00 03/07/17 04:00 03/07/17 04:00 03/07/17 04:00 03/07/17 04:00 Intake and Output: 03/06/17 03/07/17 18:59 06:59 Intake Total 240 Output Total 1000 Balance -760 - Medications Medications: Current Medications Albuterol (Ventolin Hfa 90 Mcg/Actuation (8 G)) 1 puff INH RQ6 PRN PRN Reason: Shortness of Breath Benzonatate (Tessalon Perles) 100 mg PO TID PRN PRN Reason: Cough Last Admin: 03/07/17 00:51 Dose: 100 mg Carvedilol (Coreg) 12.5 mg PO BID [facility] Last Admin: 03/06/17 18:11 Dose: 12.5 mg Furosemide (Lasix) 40 mg IVP Q8H [facility] Last Admin: 03/07/17 00:21 Dose: 40 mg Sacubitril/Valsartan (Entresto 24 Mg-26 Mg) 1 tab PO BID [facility] Fluticasone/Salmeterol (Advair Diskus 500/50) 1 puff INH RQ12 [facility] Last Admin: 03/06/17 19:21 Dose: 1 puff - Labs Labs: 03/06/17 07:44 03/06/17 07:44 PT 14.8 SECONDS (9.7-12.2) H 03/06/17 07:44 INR 1.3 03/06/17 07:44 APTT 33 SECONDS (21-34) 03/06/17 07:44 - Constitutional Appears: Non-toxic, Chronically Ill - Head Exam Head Exam: ATRAUMATIC, NORMAL INSPECTION, NORMOCEPHALIC - Eye Exam Eye Exam: EOMI, Normal appearance. absent: Conjunctival injection, Scleral icterus - ENT Exam ENT Exam: Mucous Membranes Moist - Neck Exam Neck Exam: Normal Inspection - Respiratory Exam Respiratory Exam: Decreased Breath Sounds, NORMAL BREATHING PATTERN. absent: Accessory Muscle Use, Respiratory Distress - Cardiovascular Exam Cardiovascular Exam: REGULAR RHYTHM, +S1, +S2 - GI/Abdominal Exam GI & Abdominal Exam: Distended, Soft. absent: Firm, Guarding, Rigid, Tenderness - Extremities Exam Extremities Exam: Pedal Edema (b/l) Additional comments: 2 weeping ulcers: 1st on left posterior aspect of the lower leg on achilles; 2nd : Right medial malleolus - Neurological Exam Neurological Exam: Alert, Awake, Oriented x3 - Psychiatric Exam Psychiatric exam: Normal Affect, Normal Mood - Skin Skin Exam: Normal Color, Warm Assessment and Plan - Assessment and Plan (Free Text) Assessment: 67year old male PMHx Defibrillator (2011), CHF, HTN multiple paracentesis/ thoracentesis presented to ED 03/05 for abdominal distension, SOB, and worsening b/l LE edema. GI consulted for reccurent ascites secondary to decompensated liver cirrhosis Plan: - MELD : 14 - Low sodium diet as tolerated - Continue with diuretic therapy, monitor electrolytes - patient to be tapped- f/u fluid studies - f/u AFP - monitor creatinine closely - Recommend spironolactone 100mg po qdaily and Lasix 40mg po qdaily upon discharge - Recommend outpatient management and tertiary care referral for possible liver transplant GI will sign off at this time Please reconsut as needed Discussed with Dr. Jerry Baez PGY2 <Evens Edwards - Last Filed: 03/07/17 17:23> Objective - Vital Signs/Intake and Output Vital Signs (last 24 hours): Temp Pulse Resp BP Pulse Ox 98 F 78 20 107/62 96 03/07/17 15:50 03/07/17 16:00 03/07/17 15:50 03/07/17 15:50 03/07/17 15:50 Intake and Output: 03/07/17 03/07/17 06:59 18:59 Intake Total 240 1000 Output Total 2100 Balance -1860 1000 - Medications Medications: Current Medications Albuterol (Ventolin Hfa 90 Mcg/Actuation (8 G)) 1 puff INH RQ6 PRN PRN Reason: Shortness of Breath Aspirin (Aspirin Chewable) 81 mg PO DAILY [facility] Benzonatate (Tessalon Perles) 100 mg PO TID PRN PRN Reason: Cough Last Admin: 03/07/17 10:43 Dose: 100 mg Calcitriol (Rocaltrol) 0.25 mcg PO DAILY [facility] Last Admin: 03/07/17 15:01 Dose: 0.25 mcg Carvedilol (Coreg) 12.5 mg PO BID [facility] Last Admin: 03/07/17 10:43 Dose: 12.5 mg Furosemide (Lasix) 40 mg IVP Q8H [facility] Last Admin: 03/07/17 12:59 Dose: Not Given Heparin Sodium (Porcine) (Heparin) 5,000 units SC Q8 [facility] Ferric Sodium Gluconate Complex 125 mg/ Sodium Chloride 110 mls @ 110 mls/hr IVPB DAILY [facility] Stop: 03/15/17 11:31 Last Admin: 03/07/17 12:16 Dose: 110 mls/hr Milrinone Lactate/Dextrose 20 (mg/ Sodium Chloride) 100 mls @ 11.53 mls/hr IV .Q8H41M [facility]; 0.375 MCG/KG/MIN PRN Reason: Protocol Last Admin: 03/07/17 13:12 Dose: Not Given Sacubitril/Valsartan (Entresto 24 Mg-26 Mg) 1 tab PO BID [facility] Fluticasone/Salmeterol (Advair Diskus 500/50) 1 puff INH RQ12 [facility] Last Admin: 03/07/17 07:40 Dose: 1 puff Spironolactone (Aldactone) 25 mg PO BID [facility] - Labs Labs: 03/07/17 09:28 03/07/17 09:28 PT 14.7 SECONDS (9.7-12.2) H 03/07/17 09:28 INR 1.3 03/07/17 09:28 APTT 33 SECONDS (21-34) 03/06/17 07:44 Attending/Attestation - Attestation I have personally seen and examined this patient.: Yes I have fully participated in the care of the patient.: Yes I have reviewed all pertinent clinical information, including history, physical exam and plan: Yes Notes (Text): 03/07/17 17:14 I have seen and examined patient with GI fellow and medical chemist. No acute events overnight, he continues to endorse dyspnea though improved compared to prior day. He denies abdominal pain, nausea, vomiting, fever/chills. Tolerating PO diet without difficulty. Review of vitals from today are normal. CHF s/p ICD HTN Decompensated cirrhosis Ascites s/p paracentesis today Pleural effusion s/p thoracentesis today - Low sodium diet as tolerated - 2.4 liters of fluid removed, no presence of SBP on ascitic fluid analysis - Continue with diuretic regimen and monitor creatinine. Follow up nephrology recommendations. - Obtain AFP - No further planned GI interventions, will sign off case. Patient would benefit from additional outpatient follow up along with evaluation at tertiary care transplant facility. Please reconsult as necessary, thank you.
[2017-03-07] MEDS: Fluticasone-Salmeterol 500-50mcg Diskus INH SCH ×2 (07:40→20:30)
[2017-03-07 08:26] LABS: CREATININE, RANDOM URINE 152 mg/dL (20-370)
[2017-03-07 09:43] LABS: HEMATOCRIT 25.9 % (35.0-51.0); MEAN CELL VOLUME 76.6 fL (80.0-94.0); MEAN CORPUSCULAR HEMOGLOBIN 23.6 pg (27.0-31.0); MEAN CORPUSCULAR HGB CONC 30.8 g/dL (33.0-37.0); MEAN PLATELET VOLUME 8.3 fL (7.2-11.7); RED CELL DISTRIBUTION WIDTH 20.6 % (11.5-14.5)
[2017-03-07] MEDS ORDERED: Lidocaine 1% Inj (20ml) ONE (09:44)
[2017-03-07 09:46] LABS: INR 1.3
[2017-03-07 09:53] LABS: ALB/GLOB RATIO 1.1 (1.0-2.1); BILIRUBIN,TOTAL 0.8 mg/dL (0.2-1.3); CALCIUM 7.8 mg/dl (8.6-10.4); POTASSIUM 4.4 mmol/L (3.6-5.2); TOTAL PROTEIN 6.8 g/dL (6.3-8.3)
--- NOTE | 2017-03-07 09:54 | CP.PCM.PN ---
Subjective - Date & Time of Evaluation Date of Evaluation: 03/07/17 Time of Evaluation: 11:00 - Subjective Subjective: Nephrology progress note fro Dr Archer's service. Patient is s/p thoracentesis and paracentersis. Patient states he felt better after the removal of the fluid. Patient states since yesterday, he has been urinating a lot. Patient denies fever, chills, nausea, vomiting or diarrhea. Objective - Vital Signs/Intake and Output Vital Signs (last 24 hours): Temp Pulse Resp BP Pulse Ox 97.5 F L 75 20 118/68 97 03/07/17 07:15 03/07/17 07:15 03/07/17 07:15 03/07/17 07:15 03/07/17 07:15 Intake and Output: 03/07/17 03/07/17 06:59 18:59 Intake Total 240 Output Total 2100 Balance -1860 - Medications Medications: Current Medications Albuterol (Ventolin Hfa 90 Mcg/Actuation (8 G)) 1 puff INH RQ6 PRN PRN Reason: Shortness of Breath Benzonatate (Tessalon Perles) 100 mg PO TID PRN PRN Reason: Cough Last Admin: 03/07/17 00:51 Dose: 100 mg Carvedilol (Coreg) 12.5 mg PO BID [facility] Last Admin: 03/06/17 18:11 Dose: 12.5 mg Furosemide (Lasix) 40 mg IVP Q8H [facility] Last Admin: 03/07/17 08:30 Dose: Not Given Sacubitril/Valsartan (Entresto 24 Mg-26 Mg) 1 tab PO BID [facility] Fluticasone/Salmeterol (Advair Diskus 500/50) 1 puff INH RQ12 [facility] Last Admin: 03/07/17 07:40 Dose: 1 puff - Labs Labs: 03/07/17 09:28 03/07/17 09:28 PT 14.7 SECONDS (9.7-12.2) H 03/07/17 09:28 INR 1.3 03/07/17 09:28 APTT 33 SECONDS (21-34) 03/06/17 07:44 - Constitutional Appears: No Acute Distress, Older Than Stated Age, Cachectic, Chronically Ill - Head Exam Head Exam: ATRAUMATIC, NORMAL INSPECTION, NORMOCEPHALIC - Eye Exam Eye Exam: Normal appearance. absent: Scleral icterus Pupil Exam: NORMAL ACCOMODATION - ENT Exam ENT Exam: Mucous Membranes Dry - Neck Exam Neck Exam: Normal Inspection - Respiratory Exam Respiratory Exam: Clear to Ausculation Bilateral, Rales, Rhonchi (at the bases. ), NORMAL BREATHING PATTERN. absent: Wheezes, Respiratory Distress, Stridor - Cardiovascular Exam Cardiovascular Exam: REGULAR RHYTHM, RRR, +S1, +S2. absent: JVD, Murmur - GI/Abdominal Exam GI & Abdominal Exam: Distended, Firm, Normal Bowel Sounds. absent: Guarding, Tenderness Additional comments: + fluid wave. - Extremities Exam Extremities Exam: Pedal Edema (from the feet up to the knees. ), Tenderness - Back Exam Back Exam: rash noted - Neurological Exam Neurological Exam: Alert, Awake, Oriented x3 - Psychiatric Exam Psychiatric exam: Normal Affect, Normal Mood - Skin Skin Exam: Rash (throughout the body, sparing the trunck. ) Additional comments: + skin discoloration of the lower extremities, + posterior chin old open wound , with clear fluid draining from it. Assessment and Plan (1) HELENE (acute kidney injury) Assessment & Plan: likely prerenal due to decreased perfusion from decompensated low EF CHF, and venous congestion. Creatinine improved slightly. protein/creat ratio with Patient diuresed well when lasix was increased, with negative fluid balance. Will continue with strict I&O. Will continue to diurese in an attempt to reduce venous congestion, thus improving renal function. Status: Acute (2) Systolic CHF Assessment & Plan: With decompensated left sided heart failure with venous congestion. Will continue with Lasix 40 mg q8h, Will restart aldactone 25 mg bid, and entresto bid. Entresto to be titrated up as outpatient as BP tolerates. Patient was going to be started on milrinone as per cardiology to increase systolic function, however Dr Archer spoke to Dr Rouse, decision to hold off milrinone today and try to improve diuresis with Lasix, increased entresto dose , along with aldactone. Also on coreg bid. Continue with daily weight and strict I&O. Status: Chronic (3) Hypertension Assessment & Plan: On aldocatone, entresto, and coreg. Avoid hypotensive episodes. Status: Chronic (4) Iron deficiency anemia Assessment & Plan: H/H stable Will start IV iron loading dose for 10 days. Continue to monitor h/h Gi following, no intervention recommended at this time. Status: Acute (5) Liver cirrhosis Assessment & Plan: With ascites Gi following s/p thoracentesis and paracentesis. Follow up as outpatient as per GI. Status: Chronic (6) Ascites of liver Assessment & Plan: s/p paracentesis and thoracentesis, pending cytology, cultures, LDH, albumin and total protein. Status: Chronic (7) Proteinuria Assessment & Plan: Estimated 24 hour urinary protein excretion of 1 g/day. Continue with entresto ( ARB). Status: Chronic (8) Hypocalcemia Assessment & Plan: Corrected serum calcium of 8.2. Will obtain vitamin D, phos, mag, intact PTH. Started on calcitriol po dialy. Status: Acute
[2017-03-07] MEDS ORDERED: Sacubitril/Valsartan 24-26mg Tab PO SCH (10:00)
--- NOTE | 2017-03-07 10:10 | PCM.SURG1 ---
Surgeon's Initial Post Op Note - Surgeon's Notes Surgeon: Som Randle MD Trip Motor Operator: NONE Type of Anesthesia: Local Pre-Operative Diagnosis: Heart failure, Ascites, pleural effusion, shortness of breath Operative Findings: US showed right pleural effusion, large ascites, patent left brachial vein. Post-Operative Diagnosis: Heart failure, Ascites, pleural effusion, shortness of breath Operation Performed: US guided right thoracentesis. US guided paracentesis. Left arm dual lumen picc placement, 45 cm, via the left brachial vein. Tip of picc is in the SVC. Specimen/Specimens Removed: Thoracentesis: 1200 cc of straw colored fluid. Paracentesis: 2400 cc of straw colored fluid Estimated Blood Loss: EBL {In ML}: 2 Post-Op Condition: Fair Date of Surgery/Procedure: 03/07/17 Time of Surgery/Procedure: 10:00
[2017-03-07] MEDS ORDERED: Ferric Sodium Gluconat Complex 62.5 mg/5 ml Vial IVPB SCH (11:00)
[2017-03-07 11:02] LABS: LYMPH # 1.2 K/uL (1.0-4.3); MONO # 0.4 K/uL (0.0-0.8)
--- NOTE | 2017-03-07 11:22 | RAD ---
PROCEDURE: Date of procedure: 03/07/2017 Procedure: 1. Placement of a left arm PICC with ultrasound and fluoroscopic guidance, CPT 58678 2. PICC tip confirmation with spot radiograph and is in the superior vena cava Medications: 1 percent lidocaine Total Fluoro time: 31.6 seconds Radiation: 1.47 MGy EBL: 3 cc HISTORY: Heart failure requiring picc medication. TECHNIQUE: Following informed consent and procedure time-out, the patient placed supine on the interventional table and the left arm prepped and draped in the usual sterile fashion. Ultrasound showed a patent and compressible left brachial vein. After the skin was anesthetized with lidocaine, the brachial vein was accessed with micro micropuncture technique using ultrasound guidance. A guidewire was then advanced under fluoroscopic guidance into the superior vena cava. An image documenting ultrasound guidance for vascular access was permanently saved. The length of a dual-lumen 5 Danish PICC was trimmed to 45 cm and advanced through a peel-away sheath. The PICC was position with tip of PICC confirm a spot radiograph the superior vena cava. The PICC was secured to the patient's skin. The PICC was flushed. A biopatch and sterile dressing was applied. IMPRESSION: Placement of a dual-lumen 5 Danish PICC trimmed to 45 cm via the left brachial vein. The tip of the PICC is confirmed with spot radiograph and is in the superior vena cava.
--- NOTE | 2017-03-07 11:23 | US ---
Date of procedure: 03/07/2017 Procedure: Ultrasound guidance for vascular access HISTORY: Infection requiring long-term IV antibiotics TECHNIQUE: Following informed consent and procedure time-out, the patient placed supine on the interventional table and the left arm prepped and draped in the usual sterile fashion. Ultrasound showed a patent and compressible brachial vein. After the skin was anesthetized with lidocaine, the basilic vein was accessed with micro micropuncture technique using ultrasound guidance. An image documenting ultrasound guidance for vascular access was permanently saved. IMPRESSION: Ultrasound guidance for vascular access for placement of PICC.
--- NOTE | 2017-03-07 11:24 | US ---
PROCEDURE: Date of procedure: 03/07/2017 Procedure: 1. Ultrasound-guided Right thoracentesis, CPT 12660 Medications: 6cc 1% Lidocaine HISTORY: Right pleural effusion, shortness of breath TECHNIQUE: Following informed consent ,the Patients' right chest was marked. Procedure time-out was called, and the patient was placed in the sitting position and limited ultrasound showed a large right effusion. The patient's right back was prepped and draped in the usual sterile fashion. After the skin was anesthetized with lidocaine, a drainage catheter was advanced under ultrasound guidance into the pleural space. Ultrasound-guided thoracentesis was performed. A total of 1200 cubic centimeters of straw-colored fluid removed without complication. A Xeroform dressing was applied. IMPRESSION: Ultrasound guided Right thoracentesis. There were no immediate complications.
--- NOTE | 2017-03-07 11:25 | US ---
Date of Procedure: 03/07/2017 PROCEDURE: Ultrasound-guided paracentesis, CPT 64550 Medications: 7 cc 1% Lidocaine HISTORY: Ascites, abdominal pain TECHNIQUE: Following informed consent , the patient was placed supine on the stretcher and the site was marked. A limited abdominal ultrasound was performed that showed a large amount of intra-abdominal fluid. Procedural time out was called and the Pt's abdomen was marked and prepped and draped in the usual sterile fashion. Ultrasound-guided large volume paracentesis performed. A total of 2.4 liters of straw colored fluid was removed without complication. Fluid specimen was sent for culture, sensitivity, cytology and chemistries. IMPRESSION: Ultrasound-guided large volume paracentesis.
--- NOTE | 2017-03-07 11:42 | CP.PCM.PN ---
Subjective - Date & Time of Evaluation Date of Evaluation: 03/07/17 Time of Evaluation: 11:30 - Subjective Subjective: patient is s/p thoracentesis. PICC line is in place Objective - Vital Signs/Intake and Output Vital Signs (last 24 hours): Temp Pulse Resp BP Pulse Ox 97.5 F L 75 20 119/75 97 03/07/17 07:15 03/07/17 07:15 03/07/17 07:15 03/07/17 10:43 03/07/17 07:15 Intake and Output: 03/07/17 03/07/17 06:59 18:59 Intake Total 240 Output Total 2100 Balance -1860 - Medications Medications: Current Medications Albuterol (Ventolin Hfa 90 Mcg/Actuation (8 G)) 1 puff INH RQ6 PRN PRN Reason: Shortness of Breath Benzonatate (Tessalon Perles) 100 mg PO TID PRN PRN Reason: Cough Last Admin: 03/07/17 10:43 Dose: 100 mg Carvedilol (Coreg) 12.5 mg PO BID [facility] Last Admin: 03/07/17 10:43 Dose: 12.5 mg Furosemide (Lasix) 40 mg IVP Q8H [facility] Last Admin: 03/07/17 08:30 Dose: Not Given Ferric Sodium Gluconate Complex 125 mg/ Sodium Chloride 110 mls @ 110 mls/hr IVPB DAILY [facility] Stop: 03/15/17 11:31 Sacubitril/Valsartan (Entresto 24 Mg-26 Mg) 1 tab PO BID [facility] Fluticasone/Salmeterol (Advair Diskus 500/50) 1 puff INH RQ12 [facility] Last Admin: 03/07/17 07:40 Dose: 1 puff - Labs Labs: 03/07/17 09:28 03/07/17 09:28 PT 14.7 SECONDS (9.7-12.2) H 03/07/17 09:28 INR 1.3 03/07/17 09:28 APTT 33 SECONDS (21-34) 03/06/17 07:44 - Constitutional Appears: Chronically Ill - Head Exam Head Exam: NORMAL INSPECTION - Eye Exam Eye Exam: Normal appearance - ENT Exam ENT Exam: Mucous Membranes Moist - Neck Exam Neck Exam: Full ROM - Respiratory Exam Respiratory Exam: Decreased Breath Sounds - Cardiovascular Exam Cardiovascular Exam: REGULAR RHYTHM - GI/Abdominal Exam GI & Abdominal Exam: Normal Bowel Sounds - Rectal Exam Rectal Exam: Deferred - Extremities Exam Extremities Exam: Pedal Edema - Back Exam Back Exam: NORMAL INSPECTION - Neurological Exam Neurological Exam: Alert - Psychiatric Exam Psychiatric exam: Normal Affect - Skin Skin Exam: Normal Color Assessment and Plan (1) NYHA class 3 acute on chronic systolic heart failure Assessment & Plan: patient has had recurrent hospiitalizations for heart failure. recommend milrinone therapy. Status: Acute
[2017-03-07 12:06] LABS: BODY FLUID TYPE PERITONEAL
[2017-03-07 12:06] LABS: MAGNESIUM 1.7 mg/dL (1.6-2.3); PHOSPHOROUS 3.3 mg/dL (2.5-4.5)
[2017-03-07] MEDS: Ferric Sodium Gluconat Complex 125 MG in Sodium Chloride 0.9% 100 ML IVPB SCH (12:16)
[2017-03-07 13:20] LABS: BF GROSS APPEARANCE SL CLOUDY (CLEAR); BODY FLUID TOTAL COUNT 100 (0-0)
--- NOTE | 2017-03-07 15:58 | US ---
PROCEDURE: Ultrasound of the Bladder HISTORY: Please check post void residual volume. COMPARISON: None available. TECHNIQUE: Sonographic evaluation of the bladder was performed. FINDINGS: The bladder was not particularly distended optimally evaluate for any wall thickening or gross intraluminal masses. Nevertheless no gross intraluminal masses were appreciated. Patient unable to fill bladder a further extent. Patient in pain and has difficulty breathing -as per technologist's notes Prevoid Volume: 44.74 cc. Post void residual: Patient not able to void .. No image documentation of ureteral jets -regarding their presence or absence. Hence is status is indeterminate IMPRESSION: Limited exam. Prevoid urine volume 44.7. No postvoid imaging possible at this setting. Patient with limited ability to cooperate -in pain with breathing difficulty
--- NOTE | 2017-03-07 18:49 | CP.PCM.PN ---
Subjective - Date & Time of Evaluation Date of Evaluation: 03/07/17 Time of Evaluation: 18:47 - Subjective Subjective: Patient seen and examined Reports improved dyspnea Status post thoracentesis and paracentesis Objective - Vital Signs/Intake and Output Vital Signs (last 24 hours): Temp Pulse Resp BP Pulse Ox 98 F 78 20 119/72 96 03/07/17 15:50 03/07/17 16:00 03/07/17 15:50 03/07/17 18:41 03/07/17 15:50 Intake and Output: 03/07/17 03/07/17 06:59 18:59 Intake Total 240 1000 Output Total 2100 Balance -1860 1000 - Medications Medications: Current Medications Albuterol (Ventolin Hfa 90 Mcg/Actuation (8 G)) 1 puff INH RQ6 PRN PRN Reason: Shortness of Breath Aspirin (Aspirin Chewable) 81 mg PO DAILY [facility] Benzonatate (Tessalon Perles) 100 mg PO TID PRN PRN Reason: Cough Last Admin: 03/07/17 10:43 Dose: 100 mg Calcitriol (Rocaltrol) 0.25 mcg PO DAILY [facility] Last Admin: 03/07/17 15:01 Dose: 0.25 mcg Carvedilol (Coreg) 12.5 mg PO BID [facility] Last Admin: 03/07/17 18:41 Dose: 12.5 mg Furosemide (Lasix) 40 mg IVP Q8H [facility] Last Admin: 03/07/17 12:59 Dose: Not Given Heparin Sodium (Porcine) (Heparin) 5,000 units SC Q8 [facility] Ferric Sodium Gluconate Complex 125 mg/ Sodium Chloride 110 mls @ 110 mls/hr IVPB DAILY [facility] Stop: 03/15/17 11:31 Last Admin: 03/07/17 12:16 Dose: 110 mls/hr Milrinone Lactate/Dextrose 20 (mg/ Sodium Chloride) 100 mls @ 11.53 mls/hr IV .Q8H41M [facility]; 0.375 MCG/KG/MIN PRN Reason: Protocol Last Admin: 03/07/17 13:12 Dose: Not Given Sacubitril/Valsartan (Entresto 24 Mg-26 Mg) 1 tab PO BID [facility] Last Admin: 03/07/17 18:41 Dose: 1 tab Fluticasone/Salmeterol (Advair Diskus 500/50) 1 puff INH RQ12 [facility] Last Admin: 03/07/17 07:40 Dose: 1 puff Spironolactone (Aldactone) 25 mg PO BID [facility] Last Admin: 03/07/17 18:41 Dose: 25 mg - Labs Labs: 03/07/17 09:28 03/07/17 09:28 PT 14.7 SECONDS (9.7-12.2) H 03/07/17 09:28 INR 1.3 03/07/17 09:28 APTT 33 SECONDS (21-34) 03/06/17 07:44 Assessment and Plan (1) Dyspnea Status: Acute (2) Congestive heart failure Status: Acute (3) Pleural effusion Status: Acute (4) Ascites Status: Acute (5) COPD (chronic obstructive pulmonary disease) Status: Acute - Assessment and Plan (Free Text) Plan: S/P thoracentesis and 200 mL of fluid removal Lasix Bronchodilators Start Advair 500/50 mcg one puff daily Oxygen supplementation, especially at night DVT/GI prophalaxis
[2017-03-08] MEDS ORDERED: Tramadol 25 mg PO STA (03:19)
[2017-03-08 06:52] LABS: BASO % 0.5 % (0.0-2.0); EOS # 0.1 K/uL (0.0-0.7); EOS % 1.6 % (0.0-4.0); HEMATOCRIT 25.1 % (35.0-51.0); LYMPH # 1.1 K/uL (1.0-4.3); LYMPH % 15.1 % (20.0-40.0); MEAN CORPUSCULAR HEMOGLOBIN 23.7 pg (27.0-31.0); MEAN CORPUSCULAR HGB CONC 31.2 g/dL (33.0-37.0); MEAN PLATELET VOLUME 8.3 fL (7.2-11.7); MONO # 1.2 K/uL (0.0-0.8); MONO % 16.7 % (0.0-10.0); NRBC % 0.3 % (0.0-2.0); RED CELL DISTRIBUTION WIDTH 21.3 % (11.5-14.5); WHITE BLOOD COUNT 7.1 K/uL (4.8-10.8)
--- NOTE | 2017-03-08 08:15 | CP.PCM.PN ---
Subjective - Date & Time of Evaluation Date of Evaluation: 03/08/17 Time of Evaluation: 08:00 - Subjective Subjective: patient is s/p thoracentesis and paracentesis. He has less dyspnea. Objective - Vital Signs/Intake and Output Vital Signs (last 24 hours): Temp Pulse Resp BP Pulse Ox 97.5 F L 75 20 129/78 95 03/07/17 23:20 03/07/17 23:20 03/07/17 23:20 03/08/17 05:16 03/07/17 23:20 Intake and Output: 03/08/17 03/08/17 06:59 18:59 Intake Total 320 Output Total 750 Balance -430 - Medications Medications: Current Medications Albuterol (Ventolin Hfa 90 Mcg/Actuation (8 G)) 1 puff INH RQ6 PRN PRN Reason: Shortness of Breath Aspirin (Aspirin Chewable) 81 mg PO DAILY [facility] Benzonatate (Tessalon Perles) 100 mg PO TID PRN PRN Reason: Cough Last Admin: 03/08/17 02:03 Dose: 100 mg Calcitriol (Rocaltrol) 0.25 mcg PO DAILY [facility] Last Admin: 03/07/17 15:01 Dose: 0.25 mcg Carvedilol (Coreg) 12.5 mg PO BID [facility] Last Admin: 03/07/17 18:41 Dose: 12.5 mg Furosemide (Lasix) 40 mg IVP Q8H [facility] Last Admin: 03/08/17 05:16 Dose: 40 mg Heparin Sodium (Porcine) (Heparin) 5,000 units SC Q8 [facility] Last Admin: 03/08/17 05:15 Dose: 5,000 units Ferric Sodium Gluconate Complex 125 mg/ Sodium Chloride 110 mls @ 110 mls/hr IVPB DAILY [facility] Stop: 03/15/17 11:31 Last Admin: 03/07/17 12:16 Dose: 110 mls/hr Milrinone Lactate/Dextrose 20 (mg/ Sodium Chloride) 100 mls @ 11.53 mls/hr IV .Q8H41M [facility]; 0.375 MCG/KG/MIN PRN Reason: Protocol Last Admin: 03/07/17 13:12 Dose: Not Given Sacubitril/Valsartan (Entresto 49 Mg-51 Mg) 1 tab PO BID [facility] Fluticasone/Salmeterol (Advair Diskus 500/50) 1 puff INH RQ12 [facility] Last Admin: 03/07/17 20:30 Dose: 1 puff Spironolactone (Aldactone) 25 mg PO BID [facility] Last Admin: 03/07/17 18:41 Dose: 25 mg - Labs Labs: 03/08/17 06:35 03/07/17 09:28 PT 14.7 SECONDS (9.7-12.2) H 03/07/17 09:28 INR 1.3 03/07/17 09:28 APTT 33 SECONDS (21-34) 03/06/17 07:44 - Constitutional Appears: Chronically Ill - Head Exam Head Exam: NORMAL INSPECTION - Eye Exam Eye Exam: Normal appearance - ENT Exam ENT Exam: Mucous Membranes Moist - Neck Exam Neck Exam: Full ROM - Respiratory Exam Respiratory Exam: Decreased Breath Sounds - Cardiovascular Exam Cardiovascular Exam: REGULAR RHYTHM - GI/Abdominal Exam GI & Abdominal Exam: Normal Bowel Sounds - Rectal Exam Rectal Exam: Deferred - Extremities Exam Extremities Exam: absent: Pedal Edema - Back Exam Back Exam: NORMAL INSPECTION - Neurological Exam Neurological Exam: Alert - Psychiatric Exam Psychiatric exam: Normal Affect - Skin Skin Exam: Normal Color Assessment and Plan (1) NYHA class 3 acute on chronic systolic heart failure Assessment & Plan: discussed with renal. asked if milrinone can be held and give attempt at more agressive medical therapy. clinically improving. will defer milrinone, and increase entresto. diuresis as per renal. Keep PICC line in place in case milrinone needs to be started. Status: Acute
[2017-03-08 08:39] LABS: ALB/GLOB RATIO 0.8 (1.0-2.1); ALKALINE PHOSPHATASE 71 U/L (38-126); ALT/SGPT 17 U/L (21-72); AST/SGOT 22 U/L (17-59); BILIRUBIN,TOTAL 0.5 mg/dL (0.2-1.3); BLOOD UREA NITROGEN 32 mg/dL (9-20); CALCIUM 7.5 mg/dl (8.6-10.4); CARBON DIOXIDE 35 mmol/L (22-30); CHLORIDE 91 mmol/L (98-107); GFR AFRICAN-AMERICAN > 60; GLUCOSE,RANDOM 96 mg/dL (75-110); POTASSIUM 4.6 mmol/L (3.6-5.2); SODIUM 131 mmol/L (132-148); TOTAL PROTEIN 7.5 g/dL (6.3-8.3)
[2017-03-08] MEDS: Fluticasone-Salmeterol 500-50mcg Diskus INH SCH ×2 (08:42→20:34)
--- NOTE | 2017-03-08 09:04 | CP.PCM.PN ---
<Chanel Simmons - Last Filed: 03/08/17 12:45> Subjective - Date & Time of Evaluation Date of Evaluation: 03/08/17 Time of Evaluation: 08:50 - Subjective Subjective: Nephrology progress note for Dr Archer's service. Patient with no acute events overnight. Patient is s/p paracentesis and thoracentesis yesterday. Patient states he has been urinating more now. Patient states the shortness of breath has improved, he is able to lie down with no major difficulties. Patient denies dizziness, nausea, vomiting or diarrhea. No chest pain. Objective - Vital Signs/Intake and Output Vital Signs (last 24 hours): Temp Pulse Resp BP Pulse Ox 97.5 F L 74 20 96/65 L 96 03/08/17 07:00 03/08/17 07:00 03/08/17 07:00 03/08/17 07:00 03/08/17 07:00 Intake and Output: 03/08/17 03/08/17 06:59 18:59 Intake Total 320 Output Total 750 Balance -430 - Medications Medications: Current Medications Albuterol (Ventolin Hfa 90 Mcg/Actuation (8 G)) 1 puff INH RQ6 PRN PRN Reason: Shortness of Breath Aspirin (Aspirin Chewable) 81 mg PO DAILY [facility] Benzonatate (Tessalon Perles) 100 mg PO TID PRN PRN Reason: Cough Last Admin: 03/08/17 02:03 Dose: 100 mg Calcitriol (Rocaltrol) 0.25 mcg PO DAILY [facility] Last Admin: 03/07/17 15:01 Dose: 0.25 mcg Carvedilol (Coreg) 12.5 mg PO BID [facility] Last Admin: 03/07/17 18:41 Dose: 12.5 mg Furosemide (Lasix) 40 mg IVP Q8H [facility] Last Admin: 03/08/17 05:16 Dose: 40 mg Heparin Sodium (Porcine) (Heparin) 5,000 units SC Q8 [facility] Last Admin: 03/08/17 05:15 Dose: 5,000 units Ferric Sodium Gluconate Complex 125 mg/ Sodium Chloride 110 mls @ 110 mls/hr IVPB DAILY [facility] Stop: 03/15/17 11:31 Last Admin: 03/07/17 12:16 Dose: 110 mls/hr Milrinone Lactate/Dextrose 20 (mg/ Sodium Chloride) 100 mls @ 11.53 mls/hr IV .Q8H41M [facility]; 0.375 MCG/KG/MIN PRN Reason: Protocol Last Admin: 03/07/17 13:12 Dose: Not Given Sacubitril/Valsartan (Entresto 49 Mg-51 Mg) 1 tab PO BID [facility] Fluticasone/Salmeterol (Advair Diskus 500/50) 1 puff INH RQ12 [facility] Last Admin: 03/08/17 08:42 Dose: 1 puff Spironolactone (Aldactone) 25 mg PO BID [facility] Last Admin: 03/07/17 18:41 Dose: 25 mg - Labs Labs: 03/08/17 06:35 03/08/17 06:35 PT 14.7 SECONDS (9.7-12.2) H 03/07/17 09:28 INR 1.3 03/07/17 09:28 APTT 33 SECONDS (21-34) 03/06/17 07:44 - Constitutional Appears: No Acute Distress, Older Than Stated Age, Cachectic, Chronically Ill - Head Exam Head Exam: ATRAUMATIC, NORMAL INSPECTION, NORMOCEPHALIC - Eye Exam Eye Exam: EOMI, Scleral icterus Pupil Exam: NORMAL ACCOMODATION - ENT Exam ENT Exam: Mucous Membranes Dry - Neck Exam Neck Exam: Normal Inspection - Respiratory Exam Respiratory Exam: Clear to Ausculation Bilateral, NORMAL BREATHING PATTERN. absent: Rales, Rhonchi, Wheezes, Respiratory Distress, Stridor - Cardiovascular Exam Cardiovascular Exam: REGULAR RHYTHM, RRR, +S1, +S2. absent: Murmur - GI/Abdominal Exam GI & Abdominal Exam: Distended, Firm, Rigid, Normal Bowel Sounds. absent: Guarding, Tenderness Additional comments: + fluid wave. - Extremities Exam Extremities Exam: Pedal Edema. absent: Tenderness - Back Exam Back Exam: rash noted - Neurological Exam Neurological Exam: Alert, Awake, Oriented x3 - Psychiatric Exam Psychiatric exam: Normal Affect, Normal Mood - Skin Skin Exam: Dry, Rash, Warm Additional comments: + skin discoloration, and venous stasis of the lower extremities. Assessment and Plan (1) HELENE (acute kidney injury) Assessment & Plan: Pre-renal, likely due to venous congestion superimposed with decreased perfusion from impaired systolic function right sided heart failure. No nephrotic range proteinuria. Renal function continues to improve. BUN/creat this am of 32/1.4 with. Continue with diuresis, Lasix 40 mg q8h. Continue with strict I&O and daily weight. Status: Acute (2) Systolic CHF Assessment & Plan: Will continue with Lasix 40 mg q8h, aldactone 25 mg bid, and entresto bid as BP tolerates. Continue with coreg BID. Continue to hold milrinone, as patient seems to be responding to diuresis. Continue with daily weight and strict I&O. Low sodium diet. Status: Chronic (3) Hypertension Assessment & Plan: Management as above. Status: Chronic (4) Iron deficiency anemia Assessment & Plan: Microcytic anemia - Asymptomatic HGB dropped to 7.8, With negative FOBT. Continue with IV iron Status: Acute (5) Liver cirrhosis Assessment & Plan: S/P paracentesis and thoracentesis with removal of 2.4 litters and 1.4 litters. Pending LDH, and total protein. Status: Chronic (6) Ascites of liver Status: Chronic (7) Hypocalcemia Assessment & Plan: Likely due to low vitamin D. Started on drisdol 50,000 units q7days Intact PTH pending Status: Acute <Reinier Archer - Last Filed: 03/08/17 19:33> Objective - Vital Signs/Intake and Output Vital Signs (last 24 hours): Temp Pulse Resp BP Pulse Ox 97.9 F 84 20 111/64 95 03/08/17 15:00 03/08/17 15:00 03/08/17 15:00 03/08/17 18:23 03/08/17 15:00 Intake and Output: 03/08/17 03/09/17 18:59 06:59 Output Total 300 Balance -300 - Medications Medications: Current Medications Albuterol (Ventolin Hfa 90 Mcg/Actuation (8 G)) 1 puff INH RQ6 PRN PRN Reason: Shortness of Breath Aspirin (Aspirin Chewable) 81 mg PO DAILY [facility] Last Admin: 03/08/17 10:07 Dose: 81 mg Benzonatate (Tessalon Perles) 100 mg PO TID PRN PRN Reason: Cough Last Admin: 03/08/17 18:23 Dose: 100 mg Carvedilol (Coreg) 12.5 mg PO BID [facility] Last Admin: 03/08/17 18:23 Dose: 12.5 mg Diphenhydramine HCl (Benadryl) 25 mg PO Q6 PRN PRN Reason: Itching / Pruritus Last Admin: 03/08/17 14:25 Dose: 25 mg Ergocalciferol (Drisdol 50,000 Intl Units Cap) 1 cap PO Q7D [facility] Last Admin: 03/08/17 14:11 Dose: 1 cap Furosemide (Lasix) 40 mg IVP Q6H [facility] Heparin Sodium (Porcine) (Heparin) 5,000 units SC Q8 [facility] Last Admin: 03/08/17 14:10 Dose: 5,000 units Ferric Sodium Gluconate Complex 125 mg/ Sodium Chloride 110 mls @ 110 mls/hr IVPB DAILY [facility] Stop: 03/15/17 11:31 Last Admin: 03/08/17 10:08 Dose: 110 mls/hr Milrinone Lactate/Dextrose 20 (mg/ Sodium Chloride) 100 mls @ 11.53 mls/hr IV .Q8H41M [facility]; 0.375 MCG/KG/MIN PRN Reason: Protocol Last Admin: 03/07/17 13:12 Dose: Not Given Sacubitril/Valsartan (Entresto 49 Mg-51 Mg) 1 tab PO BID [facility] Last Admin: 03/08/17 18:24 Dose: 1 tab Fluticasone/Salmeterol (Advair Diskus 500/50) 1 puff INH RQ12 [facility] Last Admin: 03/08/17 08:42 Dose: 1 puff Spironolactone (Aldactone) 25 mg PO BID [facility] Last Admin: 03/08/17 18:23 Dose: 25 mg - Labs Labs: 03/08/17 06:35 03/08/17 06:35 PT 14.7 SECONDS (9.7-12.2) H 03/07/17 09:28 INR 1.3 03/07/17 09:28 APTT 33 SECONDS (21-34) 03/06/17 07:44 Attending/Attestation - Attestation I have personally seen and examined this patient.: Yes I have fully participated in the care of the patient.: Yes I have reviewed all pertinent clinical information, including history, physical exam and plan: Yes Notes (Text): Patient seen and examined; I agree with the resident's note as above with the following additions/edits: 67 yo M w/ CHF (w/ severe systolic dysfunction), htn, liver cirrhosis, admitted with severely decompensated CHF and HELENE; Renal function improving slowly with diuresis which is likely indicative of decreasing venous congestion; however, degree of actual diuresis is unclear with erratic weights and I/O recorded (admission weight 234 lbs, 227 lbs on bed weight today, but ~7 lbs removed from thoracentesis/paracentesis alone); Patient is clinically improved but CXR still showing venous congestion; agree with cardiology that patient may still need inotropic support but will hold off for now and just continue diuresis; -increase IV lasix 40 mg frequency to q6h (goal 2-3 lbs weight loss per day); will need to lose ~10 lbs before we can d/c home (and would need to settle on an adequate diuretic regimen) -continue IV iron loading for profound anemia; -low 25-OH vit D level, start ergocalciferol 50,000 u weekly -no need for further intrinsic renal workup as patient's proteinuria is in normal range -fluid restriction to <1L per day (hyponatremic; if worsens, will consider tolvaptan) -entresto being titrated upward by cardio, should expect mild increases in serum creat; should eventually be on max dose as goal is to optimize cardiac status; 03/08/17 19:32
[2017-03-08] MEDS: Ferric Sodium Gluconat Complex 125 MG in Sodium Chloride 0.9% 100 ML IVPB SCH (10:08)
[2017-03-08] MEDS ORDERED: Ergocalciferol 50,000 Intl Units Cap PO SCH (11:30)
[2017-03-08] MEDS: Sacubitril/Valsartan 49-51 Tab PO SCH ×2 (12:25→18:24)
--- NOTE | 2017-03-08 14:43 | CP.PCM.PN ---
<Flower Pedroza - Last Filed: 03/08/17 15:11> Subjective - Date & Time of Evaluation Date of Evaluation: 03/08/17 Time of Evaluation: 14:40 - Subjective Subjective: Medicine Progress Note: Hospitalist Service Patient seen and examined bedside. Patient is s/p Thoracentesis and Paracentesis yesterday. Also recieved PICC line. Patient is doing well, states that breathing has improved. Admits to urinating more frequently. Offers no complaints at this time. Denies headaches, dizziness, cp, palpitations, sob, abdominal pain, urinary symptoms, changes in bowel habits. Objective - Vital Signs/Intake and Output Vital Signs (last 24 hours): Temp Pulse Resp BP Pulse Ox 97.5 F L 74 20 117/55 L 96 03/08/17 07:00 03/08/17 07:00 03/08/17 07:00 03/08/17 14:11 03/08/17 07:00 Intake and Output: 03/08/17 03/08/17 06:59 18:59 Intake Total 320 Output Total 750 Balance -430 - Medications Medications: Current Medications Albuterol (Ventolin Hfa 90 Mcg/Actuation (8 G)) 1 puff INH RQ6 PRN PRN Reason: Shortness of Breath Aspirin (Aspirin Chewable) 81 mg PO DAILY [facility] Last Admin: 03/08/17 10:07 Dose: 81 mg Benzonatate (Tessalon Perles) 100 mg PO TID PRN PRN Reason: Cough Last Admin: 03/08/17 02:03 Dose: 100 mg Carvedilol (Coreg) 12.5 mg PO BID [facility] Last Admin: 03/08/17 10:08 Dose: 12.5 mg Diphenhydramine HCl (Benadryl) 25 mg PO Q6 PRN PRN Reason: Itching / Pruritus Last Admin: 03/08/17 14:25 Dose: 25 mg Ergocalciferol (Drisdol 50,000 Intl Units Cap) 1 cap PO Q7D [facility] Last Admin: 03/08/17 14:11 Dose: 1 cap Furosemide (Lasix) 40 mg IVP Q8H [facility] Last Admin: 03/08/17 14:11 Dose: 40 mg Heparin Sodium (Porcine) (Heparin) 5,000 units SC Q8 [facility] Last Admin: 03/08/17 14:10 Dose: 5,000 units Ferric Sodium Gluconate Complex 125 mg/ Sodium Chloride 110 mls @ 110 mls/hr IVPB DAILY [facility] Stop: 03/15/17 11:31 Last Admin: 03/08/17 10:08 Dose: 110 mls/hr Milrinone Lactate/Dextrose 20 (mg/ Sodium Chloride) 100 mls @ 11.53 mls/hr IV .Q8H41M [facility]; 0.375 MCG/KG/MIN PRN Reason: Protocol Last Admin: 03/07/17 13:12 Dose: Not Given Sacubitril/Valsartan (Entresto 49 Mg-51 Mg) 1 tab PO BID [facility] Last Admin: 03/08/17 12:25 Dose: 1 tab Fluticasone/Salmeterol (Advair Diskus 500/50) 1 puff INH RQ12 [facility] Last Admin: 03/08/17 08:42 Dose: 1 puff Spironolactone (Aldactone) 25 mg PO BID [facility] Last Admin: 03/08/17 13:50 Dose: Not Given - Labs Labs: 03/08/17 06:35 03/08/17 06:35 PT 14.7 SECONDS (9.7-12.2) H 03/07/17 09:28 INR 1.3 03/07/17 09:28 APTT 33 SECONDS (21-34) 03/06/17 07:44 - Constitutional Appears: Well, No Acute Distress, Chronically Ill - Head Exam Head Exam: ATRAUMATIC, NORMAL INSPECTION - Eye Exam Eye Exam: EOMI, Normal appearance - ENT Exam ENT Exam: Mucous Membranes Moist - Neck Exam Neck Exam: Full ROM - Respiratory Exam Respiratory Exam: Decreased Breath Sounds, NORMAL BREATHING PATTERN. absent: Rales, Rhonchi, Wheezes Additional comments: Moving air well - Cardiovascular Exam Cardiovascular Exam: REGULAR RHYTHM, +S1, +S2 - GI/Abdominal Exam GI & Abdominal Exam: Distended, Soft. absent: Tenderness Additional comments: Dressings c/d/i, no hematoma visualized - Extremities Exam Extremities Exam: Pedal Edema Additional comments: +venous stasis changes - Neurological Exam Neurological Exam: Alert, Awake, Normal Gait, Oriented x3 - Psychiatric Exam Psychiatric exam: Normal Affect, Normal Mood - Skin Skin Exam: Normal Color, Warm Assessment and Plan (1) Ascites of liver Assessment & Plan: * Contributing factors: liver cirrhosis, dilated cardiomyopathy, strong alcohol use (6, 16 ounce Griffin lights since age 15-50s) * S/P paracentesis yesterday, 2.4 L of fluid straw colored removed * GI (Dr. Tao's group on case)-->help appreciated * Fluid studies pending * Heart healthy diet * Salt restriction * Dietary consult for education on salt restriction * Medications: * Lasix 40 mg IV Q8 per Nephro recommendation * Continue Aldactone * Abdominal US ordered * Cholelithiasis. No sonographic evidence of acute cholecystitis. Cirrhotic appearing liver similar to that seen previously. No focal abnormalities. Intra- abdominal ascites again identified although difficult to quantify. Also remarks on Kidneys on the same ultrasound Status: Chronic (2) Pleural effusion on right Assessment & Plan: * Contributing factors: liver cirrhosis, dilated cardiomyopathy * Pulm (John), Dr. Reis covering, help appreciated * S/P thoracentesis- 1.2 L of fluid removed, f/u fluid LDH and total protein * CXR ordered for today, will f/u results * Per Dr. Reis's recommendation, started Advair 500-50 Q12 [facility] and Ventolin Q6 prn shortness of breath Status: Chronic (3) NYHA class 3 acute on chronic systolic heart failure Assessment & Plan: * Cards (Nasim) on the case-->help appreciated * S/P PICC for milirone drip * Milrinone on hold at this time * Meds: * Lasix 40 mg IV Q8 per Nephrology recommendation; Aldactone held until due to low BP this morning * No statin given prior lipid panel (HDL 33, LDL 34, Chol 72, TG 39)-->will restart given CAD hx * Coreg 12.5 PO BID * Continue Entresto 49/51 PO BID * Continue ASA 81mg daily * Continue daily weight * Echocardiogram (01/11/17): Mild to moderate concentric left ventricular hypertrophy. left ventricle systolic function is moderately impaired EF: 30-35% , moderate septal hypokinesis consistent with CAD, left ventricular diastolic function is normal. Left atrium is moderately dilated. Right atrium is moderate dilated. Mitral regurgitation is mild. Mild to mod tricupsid regurgitation, mild -moderate pulm HTN * Patient has refused with nursing staff to remain on telemetry and has refused Status: Chronic (4) Anemia Assessment & Plan: * Hgb dropped to 7.8 today * Continue IV iron * Stool occult negative * Will continue to monitor Status: Acute (5) Hypertension Assessment & Plan: * Patent with low BP this morning, aladactone was held * Last BP recorded was 105/69 * Milrinone on hold at this time * Will continue Coreg 12.5 PO BID * Continue Entresto 49/57 PO BID Status: Chronic (6) Hypocalcemia Assessment & Plan: * Likely secondary to low vitamin D * Started Drisdol 50,000U q7D per nephro recommendations * Will continue to monitor Status: Acute (7) Prophylactic measure Assessment & Plan: * Heparin 5000U Q8H [facility] * SCD C/I due to LE Edema * Heart healthy diet, salt restriction Status: Resolved <Mer Sanz V - Last Filed: 03/09/17 17:14> Objective - Vital Signs/Intake and Output Vital Signs (last 24 hours): Temp Pulse Resp BP Pulse Ox 99 F 80 20 99/56 L 98 03/09/17 15:00 03/09/17 16:00 03/09/17 15:00 03/09/17 15:00 03/09/17 15:00 Intake and Output: 03/09/17 03/09/17 06:59 18:59 Intake Total 800 Output Total 100 400 Balance -100 400 - Medications Medications: Current Medications Albuterol (Ventolin Hfa 90 Mcg/Actuation (8 G)) 1 puff INH RQ6 PRN PRN Reason: Shortness of Breath Aspirin (Aspirin Chewable) 81 mg PO DAILY [facility] Last Admin: 03/09/17 09:59 Dose: 81 mg Benzonatate (Tessalon Perles) 100 mg PO TID PRN PRN Reason: Cough Last Admin: 03/08/17 18:23 Dose: 100 mg Carvedilol (Coreg) 12.5 mg PO BID [facility] Last Admin: 03/09/17 09:59 Dose: 12.5 mg Diphenhydramine HCl (Benadryl) 25 mg PO Q6 PRN PRN Reason: Itching / Pruritus Last Admin: 03/09/17 09:59 Dose: 25 mg Ergocalciferol (Drisdol 50,000 Intl Units Cap) 1 cap PO Q7D [facility] Last Admin: 03/08/17 14:11 Dose: 1 cap Furosemide (Lasix) 40 mg IVP Q12H [facility] Last Admin: 03/09/17 12:58 Dose: 40 mg Heparin Sodium (Porcine) (Heparin) 5,000 units SC Q8 [facility] Last Admin: 03/09/17 14:32 Dose: 5,000 units Ferric Sodium Gluconate Complex 125 mg/ Sodium Chloride 110 mls @ 110 mls/hr IVPB DAILY [facility] Stop: 03/15/17 11:31 Last Admin: 03/09/17 10:43 Dose: 110 mls/hr Milrinone Lactate/Dextrose 20 (mg/ Sodium Chloride) 100 mls @ 11.53 mls/hr IV .Q8H41M [facility]; 0.375 MCG/KG/MIN PRN Reason: Protocol Last Admin: 03/07/17 13:12 Dose: Not Given Sacubitril/Valsartan (Entresto 49 Mg-51 Mg) 1 tab PO BID [facility] Last Admin: 03/09/17 10:00 Dose: 1 tab Fluticasone/Salmeterol (Advair Diskus 500/50) 1 puff INH RQ12 [facility] Last Admin: 03/09/17 08:40 Dose: 1 puff Spironolactone (Aldactone) 25 mg PO BID [facility] Last Admin: 03/09/17 10:43 Dose: Not Given - Labs Labs: 03/09/17 08:22 03/09/17 08:22 PT 14.7 SECONDS (9.7-12.2) H 03/07/17 09:28 INR 1.3 03/07/17 09:28 APTT 33 SECONDS (21-34) 03/06/17 07:44 Attending/Attestation - Attestation I have personally seen and examined this patient.: Yes I have fully participated in the care of the patient.: Yes I have reviewed all pertinent clinical information, including history, physical exam and plan: Yes Notes (Text): .This is a late computer entry for 03/08/2017. Patient seen, examined, and case discussed with medical coordinator pesticide use. Patient is post operative day 2 of thoracentesis and paracentesis. Patient reports he has used the urinal about 7 times and has had filled to capacity of urine. Patient refuses . Patient is currently on a Lasix up to 4 times a day. I have discussed with nephrology and will will optimize diuresis. Nephrology reports patient will still need diuresis. And is hoping for at least 10 pounds of fluid to be removed. I have also discussed with cardiology who reports patient will eventually need milrinone drip. We'll coordinate with nephrology and cardiology to optimize diuresis of patient. Patient is ambulatory and is amendable to longterm when stable for discharge. Patient is on fluid restriction per nephrology will continue to follow sodium. We'll continue to monitor patient's weight to see how much improvement there is an diuresis. Patient appears less edematous over the lower extremities however also appears to have obese habitus which is difficult to assess patient's ascites. Patient will eventually need conversion to Lasix by mouth once he is optimized. Will restart aspirin and DVT prophylaxis. Assessment/Plan 1) Decompensated Systolic CHF (congestive heart failure) EF: 30-35% * Cardiology (Nasim) on the case-->help appreciated * s/p PICC placement for anticipated for milirone drip * Nephrology (Dr. Elkins) on case-->help appreciated * Diuresis per nephrology * No statin given prior lipid panel (HDL 33, LDL 34, Chol 72, TG 39)-->will restart given CAD hx * Echocardiogram (01/11/17): Mild to moderate concentric left ventricular hypertrophy. left ventricle systolic function is moderately impaired EF: 30-35% , moderate septal hypokinesis consistent with CAD, left ventricular diastolic function is normal. Left atrium is moderately dilated. Right atrium is moderate dilated. Mitral regurgitation is mild. Mild to mod tricupsid regurgitation, mild -moderate pulm HTN * Patient has refused with nursing staff to remain on telemetry and has refused . * Aspirin 81mg PO daily * Entresto 49/51 1 tab PO BID * Coreg 12.5 PO BID * Aldactone 25mg PO BID * Will need to start statin 2) Ascites Liver cirrhosis * Contributing factors: liver cirrhosis, dilated cardiomyopathy, strong alcohol use (6, 16 ounce Griffin lights since age 15-50s) * s/p Paracentesis and thoracentesis 03/07/17 * During thoracentesis about 1.2 L of straw-colored fluid was removed. During paracentesis about 2.4 L of straw-colored fluid removed. IR has also placed PICC line for possible anticipated milrinone drip given severity of congestive heart failure. * GI (Dr. Tao's group on case)-->help appreciated * Fluid studies were collected; No SBP on ascitic fluid * Signed off 03/07; Recommend from outpatient following and evaluation at tertiary care transplant facility. * Heart healthy diet * Salt restriction * Dietary consult for education on salt restriction * Medications: * Lasix 40 mg IV Q8 per Nephro recommendation * Aldactone held until after paracentesis and then to be resumed * Abdominal US ordered * Cholelithiasis. No sonographic evidence of acute cholecystitis. Cirrhotic appearing liver similar to that seen previously. No focal abnormalities. Intra- abdominal ascites again identified although difficult to quantify. Also remarks on Kidneys on the same ultrasound 3) Pleural effusion * Contributing factors: liver cirrhosis, dilated cardiomyopathy * Pulm (John), Dr. Reis covering, help appreciated * Per Dr. Reis's recommendation, started Advair 500-50 Q12 [facility] and Ventolin Q6 prn shortness of breath * we'll order for repeat chest x-ray to see improvement. 4) Anemia * suspected secondary to chronic disease * Reticulocyte count, iron studies, b12, folate, and occult blood ordered 03/06 * patient's particular count is 1.9, low iron and low iron saturation, normal ferritin, negative stool occult blood, pending haptoglobin * patient is on IV Ferrlecit as per nephrology since March 07. 5) History of Hypertension * Coreg 12.5 PO BID * Nephrology has resumed and titrated up Entresto 24/ PO BID * increased to Lasix 40 mg IV Q8H 6) Acute Renal Insufficiency Hyponatremia * Patient is on Duresis in light of decompensated CHF, possible Tolvaptan needed pending sodium levels * ppatient started on Calcitrol for low vitamin D. 7) Prophylactic measure * Heparin 5000 units subq 8H * Aspirin 81mg Po daily * SCD C/I due to LE Edema * Heart healthy diet, salt restriction * Aunt Sia Ravi [phone] was spoken with over the phone by the medical team and informed of the patient's current status during rounds today by myself with consent to share medical information by the patient on 03/06/17
--- NOTE | 2017-03-08 14:58 | RAD ---
HISTORY: Shortness of breath COMPARISON: 03/05/2017 FINDINGS: LUNGS: There is no significant interval change in right lower lobe airspace disease. The left lung is clear. There is pulmonary venous congestion. PLEURA: No change in moderate right pleural effusion and fluid in the minor fissure. No pneumothorax. CARDIOVASCULAR: Persistent moderate cardiomegaly. There is stable position of a left-sided dual lead transvenous permanent pacing device. OSSEOUS STRUCTURES: No significant abnormalities. VISUALIZED UPPER ABDOMEN: Normal. OTHER FINDINGS: None. IMPRESSION: No change in moderate right pleural effusion and fluid in the minor fissure with persistent moderate cardiomegaly and pulmonary venous congestion.
--- NOTE | 2017-03-08 15:20 | CP.PCM.PN ---
Subjective - Date & Time of Evaluation Date of Evaluation: 03/08/17 Time of Evaluation: 15:20 Objective - Vital Signs/Intake and Output Vital Signs (last 24 hours): Temp Pulse Resp BP Pulse Ox 97.5 F L 74 20 117/55 L 96 03/08/17 07:00 03/08/17 07:00 03/08/17 07:00 03/08/17 14:11 03/08/17 07:00 Intake and Output: 03/08/17 03/08/17 06:59 18:59 Intake Total 320 Output Total 750 Balance -430 - Medications Medications: Current Medications Albuterol (Ventolin Hfa 90 Mcg/Actuation (8 G)) 1 puff INH RQ6 PRN PRN Reason: Shortness of Breath Aspirin (Aspirin Chewable) 81 mg PO DAILY [facility] Last Admin: 03/08/17 10:07 Dose: 81 mg Benzonatate (Tessalon Perles) 100 mg PO TID PRN PRN Reason: Cough Last Admin: 03/08/17 02:03 Dose: 100 mg Carvedilol (Coreg) 12.5 mg PO BID [facility] Last Admin: 03/08/17 10:08 Dose: 12.5 mg Diphenhydramine HCl (Benadryl) 25 mg PO Q6 PRN PRN Reason: Itching / Pruritus Last Admin: 03/08/17 14:25 Dose: 25 mg Ergocalciferol (Drisdol 50,000 Intl Units Cap) 1 cap PO Q7D [facility] Last Admin: 03/08/17 14:11 Dose: 1 cap Furosemide (Lasix) 40 mg IVP Q8H [facility] Last Admin: 03/08/17 14:11 Dose: 40 mg Heparin Sodium (Porcine) (Heparin) 5,000 units SC Q8 [facility] Last Admin: 03/08/17 14:10 Dose: 5,000 units Ferric Sodium Gluconate Complex 125 mg/ Sodium Chloride 110 mls @ 110 mls/hr IVPB DAILY [facility] Stop: 03/15/17 11:31 Last Admin: 03/08/17 10:08 Dose: 110 mls/hr Milrinone Lactate/Dextrose 20 (mg/ Sodium Chloride) 100 mls @ 11.53 mls/hr IV .Q8H41M [facility]; 0.375 MCG/KG/MIN PRN Reason: Protocol Last Admin: 03/07/17 13:12 Dose: Not Given Sacubitril/Valsartan (Entresto 49 Mg-51 Mg) 1 tab PO BID [facility] Last Admin: 03/08/17 12:25 Dose: 1 tab Fluticasone/Salmeterol (Advair Diskus 500/50) 1 puff INH RQ12 [facility] Last Admin: 03/08/17 08:42 Dose: 1 puff Spironolactone (Aldactone) 25 mg PO BID [facility] Last Admin: 03/08/17 13:50 Dose: Not Given - Labs Labs: 03/08/17 06:35 03/08/17 06:35 PT 14.7 SECONDS (9.7-12.2) H 03/07/17 09:28 INR 1.3 03/07/17 09:28 APTT 33 SECONDS (21-34) 03/06/17 07:44 Assessment and Plan (1) Dyspnea Status: Acute (2) Congestive heart failure Status: Acute (3) Pleural effusion Status: Acute (4) Ascites Status: Acute (5) COPD (chronic obstructive pulmonary disease) Status: Acute
--- NOTE | 2017-03-09 02:29 | CP.PCM.PN ---
<Chaka Kenney - Last Filed: 03/09/17 06:35> Subjective - Date & Time of Evaluation Date of Evaluation: 03/09/17 Time of Evaluation: 06:05 - Subjective Subjective: Medicine Progress note for Dr. Sanz Patient seen and examined at bedside. Patient has no acute complaints this morning. Patient reports marked improvement in respiratory status. Patient is now able to lay down on his left side without difficulty. Objective - Vital Signs/Intake and Output Vital Signs (last 24 hours): Temp Pulse Resp BP Pulse Ox 98.2 F 77 20 110/61 97 03/08/17 23:30 03/08/17 23:30 03/08/17 23:30 03/09/17 02:08 03/08/17 23:30 Intake and Output: 03/08/17 03/09/17 18:59 06:59 Output Total 300 100 Balance -300 -100 - Medications Medications: Current Medications Albuterol (Ventolin Hfa 90 Mcg/Actuation (8 G)) 1 puff INH RQ6 PRN PRN Reason: Shortness of Breath Aspirin (Aspirin Chewable) 81 mg PO DAILY [facility] Last Admin: 03/08/17 10:07 Dose: 81 mg Benzonatate (Tessalon Perles) 100 mg PO TID PRN PRN Reason: Cough Last Admin: 03/08/17 18:23 Dose: 100 mg Carvedilol (Coreg) 12.5 mg PO BID [facility] Last Admin: 03/08/17 18:23 Dose: 12.5 mg Diphenhydramine HCl (Benadryl) 25 mg PO Q6 PRN PRN Reason: Itching / Pruritus Last Admin: 03/09/17 01:57 Dose: 25 mg Ergocalciferol (Drisdol 50,000 Intl Units Cap) 1 cap PO Q7D [facility] Last Admin: 03/08/17 14:11 Dose: 1 cap Furosemide (Lasix) 40 mg IVP Q6H [facility] Last Admin: 03/09/17 02:08 Dose: 40 mg Heparin Sodium (Porcine) (Heparin) 5,000 units SC Q8 [facility] Last Admin: 03/08/17 23:02 Dose: 5,000 units Ferric Sodium Gluconate Complex 125 mg/ Sodium Chloride 110 mls @ 110 mls/hr IVPB DAILY [facility] Stop: 03/15/17 11:31 Last Admin: 03/08/17 10:08 Dose: 110 mls/hr Milrinone Lactate/Dextrose 20 (mg/ Sodium Chloride) 100 mls @ 11.53 mls/hr IV .Q8H41M [facility]; 0.375 MCG/KG/MIN PRN Reason: Protocol Last Admin: 03/07/17 13:12 Dose: Not Given Sacubitril/Valsartan (Entresto 49 Mg-51 Mg) 1 tab PO BID [facility] Last Admin: 03/08/17 18:24 Dose: 1 tab Fluticasone/Salmeterol (Advair Diskus 500/50) 1 puff INH RQ12 [facility] Last Admin: 03/08/17 20:34 Dose: 1 puff Spironolactone (Aldactone) 25 mg PO BID [facility] Last Admin: 03/08/17 18:23 Dose: 25 mg - Labs Labs: 03/08/17 06:35 03/08/17 06:35 PT 14.7 SECONDS (9.7-12.2) H 03/07/17 09:28 INR 1.3 03/07/17 09:28 APTT 33 SECONDS (21-34) 03/06/17 07:44 - Constitutional Appears: No Acute Distress - Head Exam Head Exam: ATRAUMATIC, NORMOCEPHALIC - Eye Exam Eye Exam: EOMI, PERRL - ENT Exam ENT Exam: Mucous Membranes Moist - Respiratory Exam Respiratory Exam: Decreased Breath Sounds. absent: Rales, Rhonchi, Wheezes - Cardiovascular Exam Cardiovascular Exam: REGULAR RHYTHM, +S1, +S2 - GI/Abdominal Exam GI & Abdominal Exam: Distended, Soft, Normal Bowel Sounds. absent: Tenderness - Extremities Exam Additional comments: 2+ bilateral non-pitting leg edema. bilateral skin thickening. not actively weeping - Neurological Exam Neurological Exam: Alert, Awake, Oriented x3 - Skin Skin Exam: Dry, Warm Assessment and Plan - Assessment and Plan (Free Text) Plan: (1) Ascites of liver Assessment & Plan: * Contributing factors: liver cirrhosis, dilated cardiomyopathy, strong alcohol use (6, 16 ounce Griffin lights since age 15-50s) * S/P paracentesis, 2.4 L of fluid straw colored removed * GI (Dr. Tao's group on case)-->help appreciated * Fluid studies pending * Heart healthy diet * Salt restriction * Dietary consult for education on salt restriction * Medications: * Lasix 40 mg IV Q8 per Nephro recommendation * Continue Aldactone * Abdominal US ordered * Cholelithiasis. No sonographic evidence of acute cholecystitis. Cirrhotic appearing liver similar to that seen previously. No focal abnormalities. Intra- abdominal ascites again identified although difficult to quantify. Also remarks on Kidneys on the same ultrasound Status: Chronic (2) Pleural effusion on right Assessment & Plan: * Contributing factors: liver cirrhosis, dilated cardiomyopathy * Pulm (John), Dr. Reis covering, help appreciated * S/P thoracentesis- 1.2 L of fluid removed, f/u fluid LDH and total protein * CXR 03/08/17 shows no change in moderate right pleural effusion and fluid in the minor fissure with persistent moderate cardiomegaly and pulmonary venous congestion. * Per Dr. Reis's recommendation, started Advair 500-50 Q12 [facility] and Ventolin Q6 prn shortness of breath Status: Chronic (3) NYHA class 3 acute on chronic systolic heart failure Assessment & Plan: * Cards (Nasim) on the case-->help appreciated * S/P PICC for milirone drip * Milrinone on hold at this time * Meds: * Lasix 40 mg IV Q8 per Nephrology recommendation; Aldactone held until due to low BP this morning * No statin given prior lipid panel (HDL 33, LDL 34, Chol 72, TG 39)-->will restart given CAD hx * Coreg 12.5 PO BID * Continue Entresto 49/51 PO BID * Continue ASA 81mg daily * Continue daily weight * Echocardiogram (01/11/17): Mild to moderate concentric left ventricular hypertrophy. left ventricle systolic function is moderately impaired EF: 30-35% , moderate septal hypokinesis consistent with CAD, left ventricular diastolic function is normal. Left atrium is moderately dilated. Right atrium is moderate dilated. Mitral regurgitation is mild. Mild to mod tricupsid regurgitation, mild -moderate pulm HTN * Patient has refused with nursing staff to remain on telemetry and has refused Status: Chronic (4) Anemia Assessment & Plan: * Hgb dropped to 7.8 today * Continue IV iron * Stool occult negative * Will continue to monitor Status: Acute (5) Hypertension Assessment & Plan: * Aldactone 25 mg PO BID * Milrinone on hold at this time * Will continue Coreg 12.5 PO BID * Continue Entresto 49/57 PO BID Status: Chronic (6) Hypocalcemia Assessment & Plan: * Likely secondary to low vitamin D * Drisdol 50,000U q7D per nephro recommendations * Will continue to monitor Status: Acute (7) Prophylactic measure Assessment & Plan: * Heparin 5000U Q8H [facility] * SCD C/I due to LE Edema * Heart healthy diet, salt restriction Status: Resolved Will DW Dr. Umu Kenney PGY-1 <Mer Sanz V - Last Filed: 03/09/17 17:22> Objective - Vital Signs/Intake and Output Vital Signs (last 24 hours): Temp Pulse Resp BP Pulse Ox 99 F 80 20 99/56 L 98 03/09/17 15:00 03/09/17 16:00 03/09/17 15:00 03/09/17 15:00 03/09/17 15:00 Intake and Output: 03/09/17 03/09/17 06:59 18:59 Intake Total 800 Output Total 100 400 Balance -100 400 - Medications Medications: Current Medications Albuterol (Ventolin Hfa 90 Mcg/Actuation (8 G)) 1 puff INH RQ6 PRN PRN Reason: Shortness of Breath Aspirin (Aspirin Chewable) 81 mg PO DAILY [facility] Last Admin: 03/09/17 09:59 Dose: 81 mg Benzonatate (Tessalon Perles) 100 mg PO TID PRN PRN Reason: Cough Last Admin: 03/08/17 18:23 Dose: 100 mg Carvedilol (Coreg) 12.5 mg PO BID [facility] Last Admin: 03/09/17 09:59 Dose: 12.5 mg Diphenhydramine HCl (Benadryl) 25 mg PO Q6 PRN PRN Reason: Itching / Pruritus Last Admin: 03/09/17 09:59 Dose: 25 mg Ergocalciferol (Drisdol 50,000 Intl Units Cap) 1 cap PO Q7D [facility] Last Admin: 03/08/17 14:11 Dose: 1 cap Furosemide (Lasix) 40 mg IVP Q12H [facility] Last Admin: 03/09/17 12:58 Dose: 40 mg Heparin Sodium (Porcine) (Heparin) 5,000 units SC Q8 [facility] Last Admin: 03/09/17 14:32 Dose: 5,000 units Ferric Sodium Gluconate Complex 125 mg/ Sodium Chloride 110 mls @ 110 mls/hr IVPB DAILY [facility] Stop: 03/15/17 11:31 Last Admin: 03/09/17 10:43 Dose: 110 mls/hr Milrinone Lactate/Dextrose 20 (mg/ Sodium Chloride) 100 mls @ 11.53 mls/hr IV .Q8H41M [facility]; 0.375 MCG/KG/MIN PRN Reason: Protocol Last Admin: 03/07/17 13:12 Dose: Not Given Sacubitril/Valsartan (Entresto 49 Mg-51 Mg) 1 tab PO BID [facility] Last Admin: 03/09/17 10:00 Dose: 1 tab Fluticasone/Salmeterol (Advair Diskus 500/50) 1 puff INH RQ12 [facility] Last Admin: 03/09/17 08:40 Dose: 1 puff Spironolactone (Aldactone) 25 mg PO BID [facility] Last Admin: 03/09/17 10:43 Dose: Not Given - Labs Labs: 03/09/17 08:22 03/09/17 08:22 PT 14.7 SECONDS (9.7-12.2) H 03/07/17 09:28 INR 1.3 03/07/17 09:28 APTT 33 SECONDS (21-34) 03/06/17 07:44 Attending/Attestation - Attestation I have personally seen and examined this patient.: Yes I have fully participated in the care of the patient.: Yes I have reviewed all pertinent clinical information, including history, physical exam and plan: Yes Notes (Text): Patient seen, examined, and case discussed with medical record librarian. Patient seen this morning. Patient reports mild lightheadedness and dizziness. Case discussed with make up arranger, will optimize diuresis and patient will likely need Bumex when ready for discharge. Patient's weight was 100.5 kg which is about 221 pounds. Weights are accurate in the EMR, then patient has lost about 13 pounds of fluid. Which may be too rapid for the patient. Patient will need diuresis and will be observed over the weekend to see if he will need milrinone drip. Patient does have placement at [facility] when ready for discharge. Patient does understand he will need to follow-up with multiple specialists after discharge. Patient will also need education in regards to medications when he is stable for discharge. His repeat chest x-ray does not show much improvement in effusion in spite of fluid loss recorded.Patient reports this morning he has filled close to the top of his urinal at least twice. Patient reports his breathing is better. He does remain edematous over bilateral lower extremities and difficult to appreciate ascites versus obese habitus. Lung exam is improving. We'll keep PICC line in place over left upper extremity for anticipated milrinone drip. Assessment/Plan 1) Decompensated Systolic CHF (congestive heart failure) EF: 30-35% * Cardiology (Nasim) on the case-->help appreciated * s/p PICC placement for anticipated for milirone drip * Nephrology (Dr. Elkins) on case-->help appreciated * Diuresis per nephrology * No statin given prior lipid panel (HDL 33, LDL 34, Chol 72, TG 39)-->will restart given CAD hx * Echocardiogram (01/11/17): Mild to moderate concentric left ventricular hypertrophy. left ventricle systolic function is moderately impaired EF: 30-35% , moderate septal hypokinesis consistent with CAD, left ventricular diastolic function is normal. Left atrium is moderately dilated. Right atrium is moderate dilated. Mitral regurgitation is mild. Mild to mod tricupsid regurgitation, mild -moderate pulm HTN * Patient has refused with nursing staff to remain on telemetry and has refused . * Aspirin 81mg PO daily * Entresto 49/51 1 tab PO BID * Coreg 12.5 PO BID * Aldactone 25mg PO BID * Crestor 5mg POqHS 2) Ascites Liver cirrhosis * Contributing factors: liver cirrhosis, dilated cardiomyopathy, strong alcohol use (6, 16 ounce Griffin lights since age 15-50s) * s/p Paracentesis and thoracentesis 03/07/17 * During thoracentesis about 1.2 L of straw-colored fluid was removed. During paracentesis about 2.4 L of straw-colored fluid removed. IR has also placed PICC line for possible anticipated milrinone drip given severity of congestive heart failure. * GI (Dr. Tao's group on case)-->help appreciated * Fluid studies were collected; No SBP on ascitic fluid * Signed off 03/07; Recommend from outpatient following and evaluation at tertiary care transplant facility. * Heart healthy diet * Salt restriction * Dietary consult for education on salt restriction * Medications: * Diuresis per nephrology * Abdominal US ordered * Cholelithiasis. No sonographic evidence of acute cholecystitis. Cirrhotic appearing liver similar to that seen previously. No focal abnormalities. Intra- abdominal ascites again identified although difficult to quantify. Also remarks on Kidneys on the same ultrasound 3) Pleural effusion * Contributing factors: liver cirrhosis, dilated cardiomyopathy * Pulm (John), Dr. Reis covering, help appreciated * Per Dr. Reis's recommendation, started Advair 500-50 Q12 [facility] and Ventolin Q6 prn shortness of breath * we'll order for repeat chest x-ray to see improvement. 4) Anemia * suspected secondary to chronic disease * Reticulocyte count, iron studies, b12, folate, and occult blood ordered 03/06 * patient's particular count is 1.9, low iron and low iron saturation, normal ferritin, negative stool occult blood, pending haptoglobin * patient is on IV Ferrlecit as per nephrology since March 07. 5) History of Hypertension * Coreg 12.5 PO BID * Nephrology has resumed and titrated up Entresto 24/ PO BID * increased to Lasix 40 mg IV Q8H 6) Acute Renal Insufficiency Hyponatremia * Patient is on Duresis in light of decompensated CHF, possible Tolvaptan needed pending sodium levels * ppatient started on Calcitrol for low vitamin D. 7) Prophylactic measure * Heparin 5000 units subq 8H * Aspirin 81mg Po daily * SCD C/I due to LE Edema * Heart healthy diet, salt restriction * Aunt Sia Ravi [phone] was spoken with over the phone by the medical team and informed of the patient's current status during rounds today by myself with consent to share medical information by the patient on 03/06/17
[2017-03-09] MEDS: Fluticasone-Salmeterol 500-50mcg Diskus INH SCH ×2 (08:40→19:42)
[2017-03-09 08:44] LABS: BASO % 0.5 % (0.0-2.0); EOS # 0.2 K/uL (0.0-0.7); EOS % 2.6 % (0.0-4.0); HEMATOCRIT 25.5 % (35.0-51.0); LYMPH # 1.4 K/uL (1.0-4.3); LYMPH % 18.2 % (20.0-40.0); MEAN CELL VOLUME 75.9 fL (80.0-94.0); MEAN CORPUSCULAR HEMOGLOBIN 23.5 pg (27.0-31.0); MEAN CORPUSCULAR HGB CONC 30.9 g/dL (33.0-37.0); MEAN PLATELET VOLUME 8.5 fL (7.2-11.7); MONO # 1.2 K/uL (0.0-0.8); MONO % 16.1 % (0.0-10.0); NRBC % 0.3 % (0.0-2.0); RED CELL DISTRIBUTION WIDTH 21.7 % (11.5-14.5); WHITE BLOOD COUNT 7.6 K/uL (4.8-10.8)
[2017-03-09 08:53] LABS: ALKALINE PHOSPHATASE 66 U/L (38-126); ALT/SGPT 15 U/L (21-72); AST/SGOT 22 U/L (17-59); BILIRUBIN,TOTAL 0.6 mg/dL (0.2-1.3); BLOOD UREA NITROGEN 32 mg/dL (9-20); CALCIUM 7.6 mg/dl (8.6-10.4); CARBON DIOXIDE 35 mmol/L (22-30); CHLORIDE 94 mmol/L (98-107); GFR AFRICAN-AMERICAN > 60; GLUCOSE,RANDOM 96 mg/dL (75-110); POTASSIUM 4.3 mmol/L (3.6-5.2); SODIUM 132 mmol/L (132-148)
[2017-03-09] MEDS ORDERED: Ferric Sodium Gluconat Complex 62.5 mg/5 ml Vial ONE (09:57)
[2017-03-09] MEDS: Sacubitril/Valsartan 49-51 Tab PO SCH ×2 (10:00→18:22)
[2017-03-09] MEDS: Ferric Sodium Gluconat Complex 125 MG in Sodium Chloride 0.9% 100 ML IVPB SCH (10:43)
--- NOTE | 2017-03-09 11:57 | CP.PCM.PN ---
Objective - Vital Signs/Intake and Output Vital Signs (last 24 hours): Temp Pulse Resp BP Pulse Ox 97.8 F 80 20 105/58 L 96 03/09/17 08:35 03/09/17 09:00 03/09/17 08:35 03/09/17 09:59 03/09/17 08:35 Intake and Output: 03/09/17 03/09/17 06:59 18:59 Output Total 100 Balance -100 - Medications Medications: Current Medications Albuterol (Ventolin Hfa 90 Mcg/Actuation (8 G)) 1 puff INH RQ6 PRN PRN Reason: Shortness of Breath Aspirin (Aspirin Chewable) 81 mg PO DAILY [facility] Last Admin: 03/09/17 09:59 Dose: 81 mg Benzonatate (Tessalon Perles) 100 mg PO TID PRN PRN Reason: Cough Last Admin: 03/08/17 18:23 Dose: 100 mg Carvedilol (Coreg) 12.5 mg PO BID [facility] Last Admin: 03/09/17 09:59 Dose: 12.5 mg Diphenhydramine HCl (Benadryl) 25 mg PO Q6 PRN PRN Reason: Itching / Pruritus Last Admin: 03/09/17 09:59 Dose: 25 mg Ergocalciferol (Drisdol 50,000 Intl Units Cap) 1 cap PO Q7D [facility] Last Admin: 03/08/17 14:11 Dose: 1 cap Furosemide (Lasix) 40 mg IVP Q12H [facility] Heparin Sodium (Porcine) (Heparin) 5,000 units SC Q8 [facility] Last Admin: 03/09/17 06:21 Dose: 5,000 units Ferric Sodium Gluconate Complex 125 mg/ Sodium Chloride 110 mls @ 110 mls/hr IVPB DAILY [facility] Stop: 03/15/17 11:31 Last Admin: 03/09/17 10:43 Dose: 110 mls/hr Milrinone Lactate/Dextrose 20 (mg/ Sodium Chloride) 100 mls @ 11.53 mls/hr IV .Q8H41M [facility]; 0.375 MCG/KG/MIN PRN Reason: Protocol Last Admin: 03/07/17 13:12 Dose: Not Given Sacubitril/Valsartan (Entresto 49 Mg-51 Mg) 1 tab PO BID [facility] Last Admin: 03/09/17 10:00 Dose: 1 tab Fluticasone/Salmeterol (Advair Diskus 500/50) 1 puff INH RQ12 [facility] Last Admin: 03/09/17 08:40 Dose: 1 puff Spironolactone (Aldactone) 25 mg PO BID [facility] Last Admin: 03/09/17 10:43 Dose: Not Given - Labs Labs: 03/09/17 08:22 03/09/17 08:22 PT 14.7 SECONDS (9.7-12.2) H 03/07/17 09:28 INR 1.3 03/07/17 09:28 APTT 33 SECONDS (21-34) 03/06/17 07:44 Assessment and Plan (1) Congestive heart failure Assessment & Plan: Patient lost over 6 lbs; will back off on frequency of IV lasix 40 mg from q6h to q12h; Status: Acute
--- NOTE | 2017-03-09 13:18 | CP.PCM.PN ---
Subjective - Date & Time of Evaluation Date of Evaluation: 03/09/17 Time of Evaluation: 13:18 Objective - Vital Signs/Intake and Output Vital Signs (last 24 hours): Temp Pulse Resp BP Pulse Ox 97.8 F 80 20 104/68 96 03/09/17 08:35 03/09/17 09:00 03/09/17 08:35 03/09/17 12:58 03/09/17 08:35 Intake and Output: 03/09/17 03/09/17 06:59 18:59 Output Total 100 Balance -100 - Medications Medications: Current Medications Albuterol (Ventolin Hfa 90 Mcg/Actuation (8 G)) 1 puff INH RQ6 PRN PRN Reason: Shortness of Breath Aspirin (Aspirin Chewable) 81 mg PO DAILY [facility] Last Admin: 03/09/17 09:59 Dose: 81 mg Benzonatate (Tessalon Perles) 100 mg PO TID PRN PRN Reason: Cough Last Admin: 03/08/17 18:23 Dose: 100 mg Carvedilol (Coreg) 12.5 mg PO BID [facility] Last Admin: 03/09/17 09:59 Dose: 12.5 mg Diphenhydramine HCl (Benadryl) 25 mg PO Q6 PRN PRN Reason: Itching / Pruritus Last Admin: 03/09/17 09:59 Dose: 25 mg Ergocalciferol (Drisdol 50,000 Intl Units Cap) 1 cap PO Q7D [facility] Last Admin: 03/08/17 14:11 Dose: 1 cap Furosemide (Lasix) 40 mg IVP Q12H [facility] Last Admin: 03/09/17 12:58 Dose: 40 mg Heparin Sodium (Porcine) (Heparin) 5,000 units SC Q8 [facility] Last Admin: 03/09/17 06:21 Dose: 5,000 units Ferric Sodium Gluconate Complex 125 mg/ Sodium Chloride 110 mls @ 110 mls/hr IVPB DAILY [facility] Stop: 03/15/17 11:31 Last Admin: 03/09/17 10:43 Dose: 110 mls/hr Milrinone Lactate/Dextrose 20 (mg/ Sodium Chloride) 100 mls @ 11.53 mls/hr IV .Q8H41M [facility]; 0.375 MCG/KG/MIN PRN Reason: Protocol Last Admin: 03/07/17 13:12 Dose: Not Given Sacubitril/Valsartan (Entresto 49 Mg-51 Mg) 1 tab PO BID [facility] Last Admin: 03/09/17 10:00 Dose: 1 tab Fluticasone/Salmeterol (Advair Diskus 500/50) 1 puff INH RQ12 [facility] Last Admin: 03/09/17 08:40 Dose: 1 puff Spironolactone (Aldactone) 25 mg PO BID [facility] Last Admin: 03/09/17 10:43 Dose: Not Given - Labs Labs: 03/09/17 08:22 03/09/17 08:22 PT 14.7 SECONDS (9.7-12.2) H 03/07/17 09:28 INR 1.3 03/07/17 09:28 APTT 33 SECONDS (21-34) 03/06/17 07:44 Assessment and Plan (1) Dyspnea Status: Acute (2) Congestive heart failure Status: Acute (3) Pleural effusion Status: Acute (4) Ascites Status: Acute (5) COPD (chronic obstructive pulmonary disease) Status: Acute
[2017-03-09 21:06] LABS: LDH PERITONEAL FLUID 124 U/L (<63); LDH PLEURAL FLUID 124 U/L
--- NOTE | 2017-03-10 00:31 | CP.PCM.PN ---
<Chaka Kenney - Last Filed: 03/10/17 07:59> Subjective - Date & Time of Evaluation Date of Evaluation: 03/10/17 Time of Evaluation: 06:45 - Subjective Subjective: Medicine note for Dr. Sanz Patient seen and examined at bedside. Patient reports that he is still coughing but his dyspnea remains improved. He is noting that he continues to lose weight. Objective - Vital Signs/Intake and Output Vital Signs (last 24 hours): Temp Pulse Resp BP Pulse Ox 99 F 80 20 101/62 98 03/09/17 15:00 03/09/17 16:00 03/09/17 15:00 03/09/17 18:22 03/09/17 15:00 Intake and Output: 03/09/17 03/10/17 18:59 06:59 Intake Total 800 600 Output Total 400 500 Balance 400 100 - Medications Medications: Current Medications Albuterol (Ventolin Hfa 90 Mcg/Actuation (8 G)) 1 puff INH RQ6 PRN PRN Reason: Shortness of Breath Aspirin (Aspirin Chewable) 81 mg PO DAILY [facility] Last Admin: 03/09/17 09:59 Dose: 81 mg Benzonatate (Tessalon Perles) 100 mg PO TID PRN PRN Reason: Cough Last Admin: 03/09/17 22:32 Dose: 100 mg Carvedilol (Coreg) 12.5 mg PO BID [facility] Last Admin: 03/09/17 18:22 Dose: 12.5 mg Diphenhydramine HCl (Benadryl) 25 mg PO Q6 PRN PRN Reason: Itching / Pruritus Last Admin: 03/09/17 22:32 Dose: 25 mg Ergocalciferol (Drisdol 50,000 Intl Units Cap) 1 cap PO Q7D [facility] Last Admin: 03/08/17 14:11 Dose: 1 cap Furosemide (Lasix) 40 mg IVP Q12H [facility] Last Admin: 03/09/17 12:58 Dose: 40 mg Heparin Sodium (Porcine) (Heparin) 5,000 units SC Q8 [facility] Last Admin: 03/09/17 21:29 Dose: 5,000 units Ferric Sodium Gluconate Complex 125 mg/ Sodium Chloride 110 mls @ 110 mls/hr IVPB DAILY [facility] Stop: 03/15/17 11:31 Last Admin: 03/09/17 10:43 Dose: 110 mls/hr Milrinone Lactate/Dextrose 20 (mg/ Sodium Chloride) 100 mls @ 11.53 mls/hr IV .Q8H41M [facility]AYLE[facility]; 0.375 MCG/KG/MIN PRN Reason: Protocol Last Admin: 03/07/17 13:12 Dose: Not Given Rosuvastatin Calcium (Crestor) 5 mg PO HS [facility] Last Admin: 03/09/17 21:29 Dose: 5 mg Sacubitril/Valsartan (Entresto 49 Mg-51 Mg) 1 tab PO BID [facility] Last Admin: 03/09/17 18:22 Dose: 1 tab Fluticasone/Salmeterol (Advair Diskus 500/50) 1 puff INH RQ12 [facility] Last Admin: 03/09/17 19:42 Dose: 1 puff Spironolactone (Aldactone) 25 mg PO BID [facility] Last Admin: 03/09/17 18:22 Dose: 25 mg - Labs Labs: 03/09/17 08:22 03/09/17 08:22 PT 14.7 SECONDS (9.7-12.2) H 03/07/17 09:28 INR 1.3 03/07/17 09:28 APTT 33 SECONDS (21-34) 03/06/17 07:44 - Constitutional Appears: No Acute Distress - Head Exam Head Exam: ATRAUMATIC, NORMOCEPHALIC - Eye Exam Eye Exam: EOMI, PERRL - ENT Exam ENT Exam: Mucous Membranes Moist - Respiratory Exam Respiratory Exam: Decreased Breath Sounds. absent: Rales, Rhonchi, Wheezes - Cardiovascular Exam Cardiovascular Exam: REGULAR RHYTHM, +S1, +S2 - GI/Abdominal Exam GI & Abdominal Exam: Distended, Soft, Normal Bowel Sounds. absent: Tenderness - Extremities Exam Additional comments: Bilateral non-pitting leg edema improved. bilateral skin thickening. not actively weeping. - Neurological Exam Neurological Exam: Alert, Awake, Oriented x3 - Psychiatric Exam Psychiatric exam: Normal Affect, Normal Mood - Skin Skin Exam: Dry, Warm Assessment and Plan - Assessment and Plan (Free Text) Plan: Decompensated Systolic CHF (congestive heart failure) EF: 30-35% * Cardiology (Nasim) on the case-->help appreciated * s/p PICC placement for anticipated for milirone drip * Nephrology (Dr. Elkins) on case-->help appreciated * Diuresis per nephrology * No statin given prior lipid panel (HDL 33, LDL 34, Chol 72, TG 39)--> restarted given CAD hx * Echocardiogram (01/11/17): Mild to moderate concentric left ventricular hypertrophy. left ventricle systolic function is moderately impaired EF: 30-35% , moderate septal hypokinesis consistent with CAD, left ventricular diastolic function is normal. Left atrium is moderately dilated. Right atrium is moderate dilated. Mitral regurgitation is mild. Mild to mod tricupsid regurgitation, mild -moderate pulm HTN * Patient has refused with nursing staff to remain on telemetry and has refused . * Aspirin 81mg PO daily * Entresto 49/51 1 tab PO BID * Coreg 12.5 PO BID * Aldactone 25mg PO BID * Crestor 5mg POqHS Ascites * Contributing factors: liver cirrhosis, dilated cardiomyopathy, strong alcohol use (6, 16 ounce Griffin lights since age 15-50s) * s/p Paracentesis and thoracentesis 03/07/17 * During thoracentesis about 1.2 L of straw-colored fluid was removed. During paracentesis about 2.4 L of straw-colored fluid removed. IR has also placed PICC line for possible anticipated milrinone drip given severity of congestive heart failure. * GI (Dr. Tao's group on case)-->help appreciated * Fluid studies were collected; No SBP on ascitic fluid * Signed off 03/07; Recommend from outpatient following and evaluation at tertiary care transplant facility. * Heart healthy diet * Salt restriction * Dietary consult for education on salt restriction * Medications: * Diuresis per nephrology * Abdominal US * Cholelithiasis. No sonographic evidence of acute cholecystitis. Cirrhotic appearing liver similar to that seen previously. No focal abnormalities. Intra- abdominal ascites again identified although difficult to quantify. Also remarks on Kidneys on the same ultrasound Pleural effusion * Contributing factors: liver cirrhosis, dilated cardiomyopathy * Pulm (John), Dr. Reis covering, help appreciated * Per Dr. Reis's recommendation, started Advair 500-50 Q12 KAYLEEN and Ventolin Q6 prn shortness of breath * No change seen on CXR from 03/08/17 but subjective improvement noted by patient Anemia * suspected secondary to chronic disease * Reticulocyte count, iron studies, b12, folate, and occult blood ordered 03/06 * patient's reticulocyte count is 1.9, low iron and low iron saturation, normal ferritin, negative stool occult blood. haptoglobin normal * patient is on IV Ferrlecit as per nephrology since March 07. History of Hypertension * Coreg 12.5 PO BID * Nephrology has resumed and titrated up Entresto 49/51 PO BID * Lasix 40 mg IV Q12H Acute Renal Insufficiency * Patient is on Duresis in light of decompensated CHF, possible Tolvaptan needed pending sodium levels * patient started on Drisdol for low vitamin D. Prophylactic measure * Heparin 5000 units subq 8H * Aspirin 81mg Po daily * SCD C/I due to LE Edema * Heart healthy diet, salt restriction * Aunt Sia Ravi [phone] was spoken with over the phone by the medical team and informed of the patient's current status during rounds with consent to share medical information by the patient on 03/06/[address] Umu Kenney PGY-1 <eMr Sanz V - Last Filed: 03/10/17 09:20> Objective - Vital Signs/Intake and Output Vital Signs (last 24 hours): Temp Pulse Resp BP Pulse Ox 98 F 82 20 96/51 L 98 03/09/17 23:15 03/10/17 04:55 03/10/17 04:55 03/10/17 04:55 03/10/17 04:55 Intake and Output: 03/10/17 03/10/17 06:59 18:59 Intake Total 840 Output Total 900 Balance -60 - Medications Medications: Current Medications Albuterol (Ventolin Hfa 90 Mcg/Actuation (8 G)) 1 puff INH RQ6 PRN PRN Reason: Shortness of Breath Aspirin (Aspirin Chewable) 81 mg PO DAILY [facility] Last Admin: 03/09/17 09:59 Dose: 81 mg Benzonatate (Tessalon Perles) 100 mg PO TID PRN PRN Reason: Cough Last Admin: 03/10/17 04:48 Dose: 100 mg Carvedilol (Coreg) 12.5 mg PO BID [facility] Last Admin: 03/09/17 18:22 Dose: 12.5 mg Diphenhydramine HCl (Benadryl) 25 mg PO Q6 PRN PRN Reason: Itching / Pruritus Last Admin: 03/09/17 22:32 Dose: 25 mg Ergocalciferol (Drisdol 50,000 Intl Units Cap) 1 cap PO Q7D [facility] Last Admin: 03/08/17 14:11 Dose: 1 cap Furosemide (Lasix) 40 mg IVP Q12H [facility] Last Admin: 03/10/17 00:40 Dose: Not Given Heparin Sodium (Porcine) (Heparin) 5,000 units SC Q8 [facility] Last Admin: 03/10/17 06:15 Dose: 5,000 units Ferric Sodium Gluconate Complex 125 mg/ Sodium Chloride 110 mls @ 110 mls/hr IVPB DAILY [facility] Stop: 03/15/17 11:31 Last Admin: 03/09/17 10:43 Dose: 110 mls/hr Milrinone Lactate/Dextrose 20 (mg/ Sodium Chloride) 100 mls @ 11.53 mls/hr IV .Q8H41M KAYLEEN; 0.375 MCG/KG/MIN PRN Reason: Protocol Last Admin: 03/07/17 13:12 Dose: Not Given Rosuvastatin Calcium (Crestor) 5 mg PO HS [facility] Last Admin: 03/09/17 21:29 Dose: 5 mg Sacubitril/Valsartan (Entresto 49 Mg-51 Mg) 1 tab PO BID [facility] Last Admin: 03/09/17 18:22 Dose: 1 tab Fluticasone/Salmeterol (Advair Diskus 500/50) 1 puff INH RQ12 [facility] Last Admin: 03/10/17 08:55 Dose: 1 puff Spironolactone (Aldactone) 25 mg PO BID [facility] Last Admin: 03/09/17 18:22 Dose: 25 mg - Labs Labs: 03/10/17 07:41 03/10/17 07:41 PT 14.7 SECONDS (9.7-12.2) H 03/07/17 09:28 INR 1.3 03/07/17 09:28 APTT 33 SECONDS (21-34) 03/06/17 07:44 Attending/Attestation - Attestation I have personally seen and examined this patient.: Yes I have fully participated in the care of the patient.: Yes I have reviewed all pertinent clinical information, including history, physical exam and plan: Yes Notes (Text): Patient seen, examined, and case discussed with daytime resident. Patient seen this morning eating breakfast. Patient refuses telemetry overnight. I've counseled patient to use his telemetry to be able to identify any abnormal abnormalities and concern to his heart and patient is amenable to placing his telemetry back on. Patient reports he has had about 1 full urinal worth of urine. Patient according to EMR is now 223 pounds which is a change from 234 pounds which is likely due to diuresis. Patient is borderline hypotensive but is asymptomatic today. Nephrology has reduced diuresis to Lasix twice a day via intravenous and will make conversion to Bumex when appropriate. There is concern about using milrinone drip in relation to kidneys. Patient appears edematous but he is clinically improving. Patient understands that this is a life time condition and will need appropriate follow-up with both cardiology and nephrology and GI. Patient's breathing is improved. Assessment/Plan 1) Decompensated Systolic CHF (congestive heart failure) EF: 30-35% * Cardiology (Nasim) on the case-->help appreciated * s/p PICC placement for anticipated for milirone drip * Nephrology (Dr. Elkins) on case-->help appreciated * Diuresis per nephrology * No statin given prior lipid panel (HDL 33, LDL 34, Chol 72, TG 39)-->will restart given CAD hx * Echocardiogram (01/11/17): Mild to moderate concentric left ventricular hypertrophy. left ventricle systolic function is moderately impaired EF: 30-35% , moderate septal hypokinesis consistent with CAD, left ventricular diastolic function is normal. Left atrium is moderately dilated. Right atrium is moderate dilated. Mitral regurgitation is mild. Mild to mod tricupsid regurgitation, mild -moderate pulm HTN * Has AICD * Patient has refused with nursing staff to remain on telemetry and has refused . * Aspirin 81mg PO daily * Entresto 49/51 1 tab PO BID * Coreg 12.5 PO BID * Aldactone 25mg PO BID * Crestor 5mg POqHS 2) Ascites Liver cirrhosis * Contributing factors: liver cirrhosis, dilated cardiomyopathy, strong alcohol use (6, 16 ounce Griffin lights since age 15-50s) * s/p Paracentesis and thoracentesis 03/07/17 * During thoracentesis about 1.2 L of straw-colored fluid was removed. During paracentesis about 2.4 L of straw-colored fluid removed. IR has also placed PICC line for possible anticipated milrinone drip given severity of congestive heart failure. * GI (Dr. Tao's group on case)-->help appreciated * Fluid studies were collected; No SBP on ascitic fluid * Signed off 03/07; Recommend from outpatient following and evaluation at tertiary care transplant facility. * Heart healthy diet * Salt restriction * Dietary consult for education on salt restriction * Medications: * Diuresis per nephrology * Abdominal US ordered * Cholelithiasis. No sonographic evidence of acute cholecystitis. Cirrhotic appearing liver similar to that seen previously. No focal abnormalities. Intra- abdominal ascites again identified although difficult to quantify. Also remarks on Kidneys on the same ultrasound 3) Pleural effusion * Contributing factors: liver cirrhosis, dilated cardiomyopathy * Pulm (John), Dr. Reis covering, help appreciated * Per Dr. Reis's recommendation, started Advair 500-50 Q12 KAYLEEN and Ventolin Q6 prn shortness of breath * we'll order for repeat chest x-ray to see improvement. 4) Anemia * suspected secondary to chronic disease * Reticulocyte count, iron studies, b12, folate, and occult blood ordered 03/06 * patient's particular count is 1.9, low iron and low iron saturation, normal ferritin, negative stool occult blood, pending haptoglobin * patient is on IV Ferrlecit as per nephrology since March 07. 5) History of Hypertension * Coreg 12.5 PO BID * Nephrology has resumed and titrated up Entresto PO BID * decreased o Lasix 40 mg IV Q21H 6) Acute Renal Insufficiency Hyponatremia * Patient is on Duresis in light of decompensated CHF, possible Tolvaptan needed pending sodium levels * ppatient started on Calcitrol for low vitamin D. 7) Prophylactic measure * Heparin 5000 units subq 8H * Aspirin 81mg Po daily * SCD C/I due to LE Edema * Heart healthy diet, salt restriction * Aunt Sia Ravi [phone] was spoken with over the phone by the medical team and informed of the patient's current status during rounds today by myself with consent to share medical information by the patient on 03/06/17 Disposition: Patient discharge is pending nephrology and cardiology clearance given that patient will need diuresis but unclear if it will be with diuretic or will need milrinone drip. This case will be endorsed to my colleague Dr. Abimael Mahajan will be covered me this following week.
[2017-03-10 08:07] LABS: BASO % 0.6 % (0.0-2.0); EOS # 0.1 K/uL (0.0-0.7); EOS % 1.9 % (0.0-4.0); HEMATOCRIT 25.6 % (35.0-51.0); LYMPH # 1.3 K/uL (1.0-4.3); LYMPH % 16.6 % (20.0-40.0); MEAN CELL VOLUME 76.9 fL (80.0-94.0); MEAN CORPUSCULAR HEMOGLOBIN 23.6 pg (27.0-31.0); MEAN CORPUSCULAR HGB CONC 30.7 g/dL (33.0-37.0); MEAN PLATELET VOLUME 8.9 fL (7.2-11.7); MONO # 1.2 K/uL (0.0-0.8); MONO % 15.2 % (0.0-10.0); NRBC % 0.6 % (0.0-2.0); RED CELL DISTRIBUTION WIDTH 21.5 % (11.5-14.5); WHITE BLOOD COUNT 7.8 K/uL (4.8-10.8)
[2017-03-10 08:17] LABS: BILIRUBIN,TOTAL 0.6 mg/dL (0.2-1.3); CALCIUM 7.6 mg/dl (8.6-10.4); MAGNESIUM 1.7 mg/dL (1.6-2.3); PHOSPHOROUS 3.5 mg/dL (2.5-4.5); POTASSIUM 4.7 mmol/L (3.6-5.2); TOTAL PROTEIN 6.5 g/dL (6.3-8.3)
[2017-03-10 08:26] LABS: ALB/GLOB RATIO 0.9 (1.0-2.1)
[2017-03-10] MEDS: Fluticasone-Salmeterol 500-50mcg Diskus INH SCH ×2 (08:55→19:33)
[2017-03-10] MEDS: Sacubitril/Valsartan 49-51 Tab PO SCH ×2 (09:45→18:01)
[2017-03-10] MEDS: Ferric Sodium Gluconat Complex 125 MG in Sodium Chloride 0.9% 100 ML IVPB SCH (10:54)
--- NOTE | 2017-03-10 14:41 | CP.PCM.PN ---
Subjective - Date & Time of Evaluation Date of Evaluation: 03/10/17 Time of Evaluation: 14:41 Objective - Vital Signs/Intake and Output Vital Signs (last 24 hours): Temp Pulse Resp BP Pulse Ox 98 F 82 20 98/55 L 98 03/09/17 23:15 03/10/17 10:00 03/10/17 04:55 03/10/17 13:28 03/10/17 04:55 Intake and Output: 03/10/17 03/10/17 06:59 18:59 Intake Total 840 400 Output Total 900 300 Balance -60 100 - Medications Medications: Current Medications Albuterol (Ventolin Hfa 90 Mcg/Actuation (8 G)) 1 puff INH RQ6 PRN PRN Reason: Shortness of Breath Aspirin (Aspirin Chewable) 81 mg PO DAILY [facility] Last Admin: 03/10/17 09:41 Dose: 81 mg Benzonatate (Tessalon Perles) 100 mg PO TID PRN PRN Reason: Cough Last Admin: 03/10/17 11:01 Dose: 100 mg Carvedilol (Coreg) 12.5 mg PO BID [facility] Last Admin: 03/10/17 13:28 Dose: Not Given Diphenhydramine HCl (Benadryl) 25 mg PO Q6 PRN PRN Reason: Itching / Pruritus Last Admin: 03/09/17 22:32 Dose: 25 mg Ergocalciferol (Drisdol 50,000 Intl Units Cap) 1 cap PO Q7D [facility] Last Admin: 03/08/17 14:11 Dose: 1 cap Furosemide (Lasix) 20 mg IVP Q12H [facility] Last Admin: 03/10/17 11:08 Dose: 20 mg Heparin Sodium (Porcine) (Heparin) 5,000 units SC Q8 [facility] Last Admin: 03/10/17 13:30 Dose: Not Given Ferric Sodium Gluconate Complex 125 mg/ Sodium Chloride 110 mls @ 110 mls/hr IVPB DAILY [facility] Stop: 03/15/17 11:31 Last Admin: 03/10/17 10:54 Dose: 110 mls/hr Milrinone Lactate/Dextrose 20 (mg/ Sodium Chloride) 100 mls @ 11.53 mls/hr IV .Q8H41M KAYLEEN; 0.375 MCG/KG/MIN PRN Reason: Protocol Last Admin: 03/07/17 13:12 Dose: Not Given Rosuvastatin Calcium (Crestor) 5 mg PO HS [facility] Last Admin: 03/09/17 21:29 Dose: 5 mg Sacubitril/Valsartan (Entresto 49 Mg-51 Mg) 1 tab PO BID [facility] Last Admin: 03/10/17 09:45 Dose: 1 tab Fluticasone/Salmeterol (Advair Diskus 500/50) 1 puff INH RQ12 [facility] Last Admin: 03/10/17 08:55 Dose: 1 puff Spironolactone (Aldactone) 25 mg PO BID [facility] Last Admin: 03/10/17 09:41 Dose: 25 mg - Labs Labs: 03/10/17 07:41 03/10/17 07:41 PT 14.7 SECONDS (9.7-12.2) H 03/07/17 09:28 INR 1.3 03/07/17 09:28 APTT 33 SECONDS (21-34) 03/06/17 07:44 Assessment and Plan (1) Dyspnea Status: Acute (2) Congestive heart failure Status: Acute (3) Pleural effusion Status: Acute (4) Ascites Status: Acute (5) COPD (chronic obstructive pulmonary disease) Status: Acute
--- NOTE | 2017-03-10 19:05 | CP.PCM.PN ---
Subjective - Date & Time of Evaluation Date of Evaluation: 03/10/17 Time of Evaluation: 12:00 - Subjective Subjective: 61 yo M w/ severe CHF w/ systolic dysfunction, htn, liver cirrhosis, admitted with CHF exacerbation; Urine output decreased significantly since decreasing diuretic dose; breathing overall improved as is leg swelling; feeling lightheaded on walking today; Objective - Vital Signs/Intake and Output Vital Signs (last 24 hours): Temp Pulse Resp BP Pulse Ox 98.1 F 80 20 108/63 96 03/10/17 15:54 03/10/17 15:54 03/10/17 15:54 03/10/17 18:01 03/10/17 15:54 Intake and Output: 03/10/17 03/11/17 18:59 06:59 Intake Total 400 Output Total 300 Balance 100 - Medications Medications: Current Medications Albuterol (Ventolin Hfa 90 Mcg/Actuation (8 G)) 1 puff INH RQ6 PRN PRN Reason: Shortness of Breath Aspirin (Aspirin Chewable) 81 mg PO DAILY [facility] Last Admin: 03/10/17 09:41 Dose: 81 mg Benzonatate (Tessalon Perles) 100 mg PO TID PRN PRN Reason: Cough Last Admin: 03/10/17 11:01 Dose: 100 mg Carvedilol (Coreg) 12.5 mg PO BID [facility] Last Admin: 03/10/17 18:01 Dose: 12.5 mg Diphenhydramine HCl (Benadryl) 25 mg PO Q6 PRN PRN Reason: Itching / Pruritus Last Admin: 03/09/17 22:32 Dose: 25 mg Ergocalciferol (Drisdol 50,000 Intl Units Cap) 1 cap PO Q7D [facility] Last Admin: 03/08/17 14:11 Dose: 1 cap Furosemide (Lasix) 20 mg IVP Q12H [facility] Last Admin: 03/10/17 11:08 Dose: 20 mg Heparin Sodium (Porcine) (Heparin) 5,000 units SC Q8 [facility] Last Admin: 03/10/17 13:30 Dose: Not Given Ferric Sodium Gluconate Complex 125 mg/ Sodium Chloride 110 mls @ 110 mls/hr IVPB DAILY [facility] Stop: 03/15/17 11:31 Last Admin: 03/10/17 10:54 Dose: 110 mls/hr Milrinone Lactate/Dextrose 20 (mg/ Sodium Chloride) 100 mls @ 11.53 mls/hr IV .Q8H41M [facility]AYLEEN; 0.375 MCG/KG/MIN PRN Reason: Protocol Last Admin: 03/07/17 13:12 Dose: Not Given Rosuvastatin Calcium (Crestor) 5 mg PO HS [facility] Last Admin: 03/09/17 21:29 Dose: 5 mg Sacubitril/Valsartan (Entresto 49 Mg-51 Mg) 1 tab PO BID [facility] Last Admin: 03/10/17 18:01 Dose: 1 tab Fluticasone/Salmeterol (Advair Diskus 500/50) 1 puff INH RQ12 [facility] Last Admin: 03/10/17 08:55 Dose: 1 puff Spironolactone (Aldactone) 25 mg PO BID [facility] Last Admin: 03/10/17 18:01 Dose: 25 mg - Labs Labs: 03/10/17 07:41 03/10/17 07:41 PT 14.7 SECONDS (9.7-12.2) H 03/07/17 09:28 INR 1.3 03/07/17 09:28 APTT 33 SECONDS (21-34) 03/06/17 07:44 - Constitutional Appears: Non-toxic, No Acute Distress - Head Exam Head Exam: NORMAL INSPECTION - Eye Exam Eye Exam: Normal appearance. absent: Scleral icterus - ENT Exam ENT Exam: Mucous Membranes Moist - Respiratory Exam Respiratory Exam: absent: Respiratory Distress Additional comments: mild exp wheezes; - Cardiovascular Exam Cardiovascular Exam: RRR, +S1, +S2 - GI/Abdominal Exam GI & Abdominal Exam: Soft. absent: Tenderness - Extremities Exam Additional comments: moderately edematous legs (improved), anasarca; - Neurological Exam Neurological Exam: Alert, Awake - Psychiatric Exam Psychiatric exam: Normal Affect, Normal Mood - Skin Skin Exam: Warm. absent: Cyanosis Assessment and Plan (1) Congestive heart failure Assessment & Plan: Severely decompensated systolic CHF; overall improving and has been losing weight with diuresis; IV lasix dose decreased to 40 mg q12h but patient with orthostatic symptoms; -will decrease further to 20 mg q12h; continue aldactone 25 mg bid and entresto (being titrated upward by cardio); targetting ~2-3 lb weight loss per day; -will switch to PO bumex with bid dosing before d/c home (better bioavailability than PO lasix) Status: Acute (2) Metabolic alkalosis Assessment & Plan: Secondary to loop diuretics; being offset partially by aldactone; decreasing lasix dose; if alkalosis continues to worsen, check vbg to look for possible hypercapnea; Status: Acute (3) HELENE (acute kidney injury) Assessment & Plan: Mild increase in serum creat as expected with diuresis and higher entresto dose , continuing the same; need to optimize cardiac status; Status: Acute (4) Hypocalcemia Assessment & Plan: With low vit D 25-OH level; on ergocalciferol 50,000 u weekly, continue; awaiting PTH level; Status: Acute (5) Iron deficiency anemia Assessment & Plan: Hgb stable; continue IV iron loading; Status: Acute
[2017-03-10] MEDS ORDERED: DiphenhydrAMINE 50 mg/ml Inj IVP STA (21:49)
--- NOTE | 2017-03-11 01:02 | CP.PCM.PN ---
<Braulio Torres - Last Filed: 03/11/17 00:59> Subjective - Date & Time of Evaluation Date of Evaluation: 03/11/17 Time of Evaluation: 01:02 - Subjective Subjective: Patient seen and examined at bedside. Complaining of generalized itchiness. No other complaints at this time. Denies fever, chest pain SOB, chills Objective - Vital Signs/Intake and Output Vital Signs (last 24 hours): Temp Pulse Resp BP Pulse Ox 98.3 F 76 20 94/49 L 95 03/10/17 23:10 03/10/17 23:10 03/10/17 23:10 03/10/17 23:10 03/10/17 23:10 Intake and Output: 03/10/17 03/11/17 18:59 06:59 Intake Total 400 Output Total 300 Balance 100 - Medications Medications: Current Medications Albuterol (Ventolin Hfa 90 Mcg/Actuation (8 G)) 1 puff INH RQ6 PRN PRN Reason: Shortness of Breath Aspirin (Aspirin Chewable) 81 mg PO DAILY [facility] Last Admin: 03/10/17 09:41 Dose: 81 mg Benzonatate (Tessalon Perles) 100 mg PO TID PRN PRN Reason: Cough Last Admin: 03/10/17 11:01 Dose: 100 mg Carvedilol (Coreg) 12.5 mg PO BID [facility] Last Admin: 03/10/17 18:01 Dose: 12.5 mg Diphenhydramine HCl (Benadryl) 25 mg PO Q6 PRN PRN Reason: Itching / Pruritus Last Admin: 03/09/17 22:32 Dose: 25 mg Ergocalciferol (Drisdol 50,000 Intl Units Cap) 1 cap PO Q7D [facility] Last Admin: 03/08/17 14:11 Dose: 1 cap Furosemide (Lasix) 20 mg IVP Q12H [facility] Last Admin: 03/10/17 22:07 Dose: 20 mg Heparin Sodium (Porcine) (Heparin) 5,000 units SC Q8 [facility] Last Admin: 03/10/17 22:07 Dose: 5,000 units Ferric Sodium Gluconate Complex 125 mg/ Sodium Chloride 110 mls @ 110 mls/hr IVPB DAILY [facility] Stop: 03/15/17 11:31 Last Admin: 03/10/17 10:54 Dose: 110 mls/hr Milrinone Lactate/Dextrose 20 (mg/ Sodium Chloride) 100 mls @ 11.53 mls/hr IV .Q8H41M [facility]; 0.375 MCG/KG/MIN PRN Reason: Protocol Last Admin: 03/07/17 13:12 Dose: Not Given Rosuvastatin Calcium (Crestor) 5 mg PO HS [facility] Last Admin: 03/10/17 22:07 Dose: 5 mg Sacubitril/Valsartan (Entresto 49 Mg-51 Mg) 1 tab PO BID [facility] Last Admin: 03/10/17 18:01 Dose: 1 tab Fluticasone/Salmeterol (Advair Diskus 500/50) 1 puff INH RQ12 [facility] Last Admin: 03/10/17 19:33 Dose: 1 puff Spironolactone (Aldactone) 25 mg PO BID [facility] Last Admin: 03/10/17 18:01 Dose: 25 mg - Labs Labs: 03/10/17 07:41 03/10/17 07:41 PT 14.7 SECONDS (9.7-12.2) H 03/07/17 09:28 INR 1.3 03/07/17 09:28 APTT 33 SECONDS (21-34) 03/06/17 07:44 - Additional Findings Additional findings: - Constitutional Appears: No Acute Distress - Head Exam Head Exam: ATRAUMATIC, NORMOCEPHALIC - Eye Exam Eye Exam: EOMI, PERRL - ENT Exam ENT Exam: Mucous Membranes Moist - Respiratory Exam Respiratory Exam: Decreased Breath Sounds. absent: Rales, Rhonchi, Wheezes - Cardiovascular Exam Cardiovascular Exam: REGULAR RHYTHM, +S1, +S2 - GI/Abdominal Exam GI & Abdominal Exam: Distended, Soft, Normal Bowel Sounds. absent: Tenderness - Extremities Exam Additional comments: Bilateral non-pitting leg edema improved. bilateral skin thickening. not actively weeping. - Neurological Exam Neurological Exam: Alert, Awake, Oriented x3 - Psychiatric Exam Psychiatric exam: Normal Affect, Normal Mood - Skin Skin Exam: Dry, Warm Assessment and Plan - Assessment and Plan (Free Text) Assessment: Decompensated Systolic CHF (congestive heart failure) EF: 30-35% * Cardiology (Nasim) on the case-->help appreciated * s/p PICC placement for anticipated for milirone drip * Nephrology (Dr. Elkins) on case-->help appreciated * Diuresis per nephrology * No statin given prior lipid panel (HDL 33, LDL 34, Chol 72, TG 39)--> restarted given CAD hx * Echocardiogram (01/11/17): Mild to moderate concentric left ventricular hypertrophy. left ventricle systolic function is moderately impaired EF: 30-35% , moderate septal hypokinesis consistent with CAD, left ventricular diastolic function is normal. Left atrium is moderately dilated. Right atrium is moderate dilated. Mitral regurgitation is mild. Mild to mod tricupsid regurgitation, mild -moderate pulm HTN * Patient has refused with nursing staff to remain on telemetry and has refused . * Aspirin 81mg PO daily * Entresto 49/51 1 tab PO BID * Coreg 12.5 PO BID * Aldactone 25mg PO BID * Crestor 5mg POqHS Ascites * Contributing factors: liver cirrhosis, dilated cardiomyopathy, strong alcohol use (6, 16 ounce Griffin lights since age 15-50s) * s/p Paracentesis and thoracentesis 03/07/17 * During thoracentesis about 1.2 L of straw-colored fluid was removed. During paracentesis about 2.4 L of straw-colored fluid removed. IR has also placed PICC line for possible anticipated milrinone drip given severity of congestive heart failure. * GI (Dr. Tao's group on case)-->help appreciated * Fluid studies were collected; No SBP on ascitic fluid * Signed off 03/07; Recommend from outpatient following and evaluation at tertiary care transplant facility. * Heart healthy diet * Salt restriction * Dietary consult for education on salt restriction * Medications: * Diuresis per nephrology * Abdominal US * Cholelithiasis. No sonographic evidence of acute cholecystitis. Cirrhotic appearing liver similar to that seen previously. No focal abnormalities. Intra- abdominal ascites again identified although difficult to quantify. Also remarks on Kidneys on the same ultrasound Pleural effusion * Contributing factors: liver cirrhosis, dilated cardiomyopathy * Pulm (John), Dr. Reis covering, help appreciated * Per Dr. Reis's recommendation, started Advair 500-50 Q12 [facility] and Ventolin Q6 prn shortness of breath * No change seen on CXR from 03/08/17 but subjective improvement noted by patient Anemia * suspected secondary to chronic disease * Reticulocyte count, iron studies, b12, folate, and occult blood ordered 03/06 * patient's reticulocyte count is 1.9, low iron and low iron saturation, normal ferritin, negative stool occult blood. haptoglobin normal * patient is on IV Ferrlecit as per nephrology since March 07. History of Hypertension * Coreg 12.5 PO BID * Nephrology has resumed and titrated up Entresto 49/51 PO BID * Lasix 40 mg IV Q12H Acute Renal Insufficiency * Patient is on Duresis in light of decompensated CHF, possible Tolvaptan needed pending sodium levels * patient started on Drisdol for low vitamin D. Prophylactic measure * Heparin 5000 units subq 8H * Aspirin 81mg Po daily * SCD C/I due to LE Edema * Heart healthy diet, salt restriction * Aunt Sia Ravi [phone] was spoken with over the phone by the medical team and informed of the patient's current status during rounds with consent to share medical information by the patient on 03/06/17 <Abimael Mahajan - Last Filed: 03/11/17 20:44> Objective - Vital Signs/Intake and Output Vital Signs (last 24 hours): Temp Pulse Resp BP Pulse Ox 97.3 F L 70 20 124/61 95 03/11/17 15:20 03/11/17 18:00 03/11/17 15:20 03/11/17 17:27 03/11/17 15:20 Intake and Output: 03/11/17 03/12/17 18:59 06:59 Intake Total 300 Output Total 600 Balance -300 - Medications Medications: Current Medications Albuterol (Ventolin Hfa 90 Mcg/Actuation (8 G)) 1 puff INH RQ6 PRN PRN Reason: Shortness of Breath Aspirin (Aspirin Chewable) 81 mg PO DAILY [facility] Last Admin: 03/11/17 09:45 Dose: 81 mg Benzonatate (Tessalon Perles) 100 mg PO TID PRN PRN Reason: Cough Last Admin: 03/11/17 13:34 Dose: 100 mg Bumetanide (Bumex) 1 mg PO BID [facility] Last Admin: 03/11/17 17:26 Dose: 1 mg Carvedilol (Coreg) 12.5 mg PO BID [facility] Last Admin: 03/11/17 17:27 Dose: 12.5 mg Diphenhydramine HCl (Benadryl) 25 mg PO Q6 PRN PRN Reason: Itching / Pruritus Last Admin: 03/11/17 09:45 Dose: 25 mg Ergocalciferol (Drisdol 50,000 Intl Units Cap) 1 cap PO Q7D [facility] Last Admin: 03/08/17 14:11 Dose: 1 cap Heparin Sodium (Porcine) (Heparin) 5,000 units SC Q8 [facility] Last Admin: 03/11/17 13:26 Dose: 5,000 units Ferric Sodium Gluconate Complex 125 mg/ Sodium Chloride 110 mls @ 110 mls/hr IVPB DAILY [facility] Stop: 03/15/17 11:31 Last Admin: 03/11/17 10:25 Dose: 110 mls/hr Milrinone Lactate/Dextrose 20 (mg/ Sodium Chloride) 100 mls @ 11.53 mls/hr IV .Q8H41M [facility]; 0.375 MCG/KG/MIN PRN Reason: Protocol Last Admin: 03/07/17 13:12 Dose: Not Given Rosuvastatin Calcium (Crestor) 5 mg PO HS [facility] Last Admin: 03/10/17 22:07 Dose: 5 mg Sacubitril/Valsartan (Entresto 49 Mg-51 Mg) 1 tab PO BID [facility] Last Admin: 03/11/17 17:27 Dose: 1 tab Fluticasone/Salmeterol (Advair Diskus 500/50) 1 puff INH RQ12 [facility] Last Admin: 03/11/17 19:56 Dose: Not Given Spironolactone (Aldactone) 25 mg PO BID [facility] Last Admin: 03/11/17 17:26 Dose: 25 mg - Labs Labs: 03/11/17 06:31 03/11/17 06:31 PT 14.7 SECONDS (9.7-12.2) H 03/07/17 09:28 INR 1.3 03/07/17 09:28 APTT 33 SECONDS (21-34) 03/06/17 07:44 Attending/Attestation - Attestation I have personally seen and examined this patient.: Yes I have fully participated in the care of the patient.: Yes I have reviewed all pertinent clinical information, including history, physical exam and plan: Yes Notes (Text): 03/11/17 20:37 Patient was seen and examined at 2:10 PM 03/11/17 665 B Exam, assessement and plan were thoroughly gone over with the resident. Alson on ROS: Still SOB at times and dry cough but this has improved NO other issues upon FULL ROS Also on exam: Respiratory: Decreased Breath Sounds Right Mid to Lower Lung Field GI: Central Obesity could not palpate liver and spleen Ext: NONpitting edema from feet to bilateral tibial tuberosities (edema has improved as per patient) Also on Assessment: 1). Metabolic Alkalosis Likely secondary to the Loop Diuretics Bicarb is currently stable Lasix changed to Bumex 2). Hypocalcemia Ergocalciferol 50,000 Units PO once week on Fridays F/U repeat Chest X Ray 03/12/17 to make sure that the Pleural Effusion has not returned Medicine Team will need to speak with Cardiology concerning their decision concerning Milrinone vs continued diuretic use Will speak with SW/Schedule Checker on 03/12/17 concerning placement for this patient. Abimael Mahajan D.O. 03/11/17 20:43
[2017-03-11 06:46] LABS: BASO % 0.5 % (0.0-2.0); EOS # 0.2 K/uL (0.0-0.7); HEMATOCRIT 25.8 % (35.0-51.0); LYMPH # 1.2 K/uL (1.0-4.3); LYMPH % 14.4 % (20.0-40.0); MEAN CELL VOLUME 77.9 fL (80.0-94.0); MEAN CORPUSCULAR HEMOGLOBIN 23.8 pg (27.0-31.0); MEAN CORPUSCULAR HGB CONC 30.6 g/dL (33.0-37.0); MEAN PLATELET VOLUME 8.8 fL (7.2-11.7); MONO # 1.5 K/uL (0.0-0.8); MONO % 18.1 % (0.0-10.0); NRBC % 0.6 % (0.0-2.0); RED CELL DISTRIBUTION WIDTH 21.6 % (11.5-14.5)
[2017-03-11 06:55] LABS: BILIRUBIN,TOTAL 0.5 mg/dL (0.2-1.3); CALCIUM 7.5 mg/dl (8.6-10.4); MAGNESIUM 1.7 mg/dL (1.6-2.3); PHOSPHOROUS 3.3 mg/dL (2.5-4.5); POTASSIUM 4.9 mmol/L (3.6-5.2); TOTAL PROTEIN 6.6 g/dL (6.3-8.3)
[2017-03-11 06:57] LABS: ALB/GLOB RATIO 0.9 (1.0-2.1)
[2017-03-11] MEDS: Fluticasone-Salmeterol 500-50mcg Diskus INH SCH ×2 (07:55→19:56)
[2017-03-11] MEDS: Sacubitril/Valsartan 49-51 Tab PO SCH ×2 (09:57→17:27)
[2017-03-11] MEDS: Ferric Sodium Gluconat Complex 125 MG in Sodium Chloride 0.9% 100 ML IVPB SCH (10:25)
--- NOTE | 2017-03-11 15:36 | CP.PCM.PN ---
Objective - Vital Signs/Intake and Output Vital Signs (last 24 hours): Temp Pulse Resp BP Pulse Ox 97.7 F 85 20 115/63 99 03/11/17 04:38 03/11/17 07:30 03/11/17 04:38 03/11/17 10:31 03/11/17 04:38 Intake and Output: 03/11/17 03/11/17 06:59 18:59 Intake Total 240 Output Total 400 Balance -160 - Medications Medications: Current Medications Albuterol (Ventolin Hfa 90 Mcg/Actuation (8 G)) 1 puff INH RQ6 PRN PRN Reason: Shortness of Breath Aspirin (Aspirin Chewable) 81 mg PO DAILY [facility] Last Admin: 03/11/17 09:45 Dose: 81 mg Benzonatate (Tessalon Perles) 100 mg PO TID PRN PRN Reason: Cough Last Admin: 03/11/17 13:34 Dose: 100 mg Bumetanide (Bumex) 1 mg PO BID [facility] Carvedilol (Coreg) 12.5 mg PO BID [facility] Last Admin: 03/11/17 09:48 Dose: 12.5 mg Diphenhydramine HCl (Benadryl) 25 mg PO Q6 PRN PRN Reason: Itching / Pruritus Last Admin: 03/11/17 09:45 Dose: 25 mg Ergocalciferol (Drisdol 50,000 Intl Units Cap) 1 cap PO Q7D [facility] Last Admin: 03/08/17 14:11 Dose: 1 cap Heparin Sodium (Porcine) (Heparin) 5,000 units SC Q8 [facility] Last Admin: 03/11/17 13:26 Dose: 5,000 units Ferric Sodium Gluconate Complex 125 mg/ Sodium Chloride 110 mls @ 110 mls/hr IVPB DAILY [facility] Stop: 03/15/17 11:31 Last Admin: 03/11/17 10:25 Dose: 110 mls/hr Milrinone Lactate/Dextrose 20 (mg/ Sodium Chloride) 100 mls @ 11.53 mls/hr IV .Q8H41M [facility]; 0.375 MCG/KG/MIN PRN Reason: Protocol Last Admin: 03/07/17 13:12 Dose: Not Given Rosuvastatin Calcium (Crestor) 5 mg PO HS [facility] Last Admin: 03/10/17 22:07 Dose: 5 mg Sacubitril/Valsartan (Entresto 49 Mg-51 Mg) 1 tab PO BID [facility] Last Admin: 03/11/17 09:57 Dose: 1 tab Fluticasone/Salmeterol (Advair Diskus 500/50) 1 puff INH RQ12 [facility] Last Admin: 03/11/17 07:55 Dose: Not Given Spironolactone (Aldactone) 25 mg PO BID [facility] Last Admin: 03/11/17 09:47 Dose: 25 mg - Labs Labs: 03/11/17 06:31 03/11/17 06:31 PT 14.7 SECONDS (9.7-12.2) H 03/07/17 09:28 INR 1.3 03/07/17 09:28 APTT 33 SECONDS (21-34) 03/06/17 07:44 Assessment and Plan (1) Congestive heart failure Status: Acute (2) Metabolic alkalosis Status: Acute (3) HELENE (acute kidney injury) Status: Acute (4) Hypocalcemia Status: Acute (5) Iron deficiency anemia Status: Acute
[2017-03-12 07:07] LABS: BASO # 0.1 K/uL (0.0-0.2); BASO % 1.1 % (0.0-2.0); EOS # 0.2 K/uL (0.0-0.7); EOS % 1.8 % (0.0-4.0); HEMATOCRIT 29.1 % (35.0-51.0); LYMPH # 1.6 K/uL (1.0-4.3); LYMPH % 17.4 % (20.0-40.0); MEAN CELL VOLUME 78.7 fL (80.0-94.0); MEAN CORPUSCULAR HEMOGLOBIN 23.6 pg (27.0-31.0); MEAN PLATELET VOLUME 8.7 fL (7.2-11.7); MONO # 1.4 K/uL (0.0-0.8); MONO % 15.7 % (0.0-10.0); NRBC % 0.5 % (0.0-2.0); RED CELL DISTRIBUTION WIDTH 21.3 % (11.5-14.5)
--- NOTE | 2017-03-12 07:57 | CP.PCM.PN ---
Subjective - Date & Time of Evaluation Date of Evaluation: 03/12/17 Time of Evaluation: 07:56 - Subjective Subjective: Medicine Progress Note: Hospitalist Service Patient seen and examined at bedside. Per nursing, no acute events overnight. Patient is doing well, states that he feels like his stomach is getting tight. States that shortness of breath has improved. Urinating frequently. Denies headaches, dizziness, chest pain, palpitations, sob, abdominal pain, urinary symptoms, changes in bowel habits. Objective - Vital Signs/Intake and Output Vital Signs (last 24 hours): Temp Pulse Resp BP Pulse Ox 97.6 F 74 20 96/50 L 94 L 03/11/17 23:10 03/11/17 23:10 03/11/17 23:10 03/11/17 23:10 03/11/17 23:10 Intake and Output: 03/12/17 03/12/17 06:59 18:59 Output Total 2100 Balance -2100 - Medications Medications: Current Medications Albuterol (Ventolin Hfa 90 Mcg/Actuation (8 G)) 1 puff INH RQ6 PRN PRN Reason: Shortness of Breath Aspirin (Aspirin Chewable) 81 mg PO DAILY [facility] Last Admin: 03/11/17 09:45 Dose: 81 mg Benzonatate (Tessalon Perles) 100 mg PO TID PRN PRN Reason: Cough Last Admin: 03/11/17 21:31 Dose: 100 mg Bumetanide (Bumex) 1 mg PO BID [facility] Last Admin: 03/11/17 17:26 Dose: 1 mg Carvedilol (Coreg) 12.5 mg PO BID [facility] Last Admin: 03/11/17 17:27 Dose: 12.5 mg Diphenhydramine HCl (Benadryl) 25 mg PO Q6 PRN PRN Reason: Itching / Pruritus Last Admin: 03/11/17 09:45 Dose: 25 mg Ergocalciferol (Drisdol 50,000 Intl Units Cap) 1 cap PO Q7D [facility] Last Admin: 03/08/17 14:11 Dose: 1 cap Heparin Sodium (Porcine) (Heparin) 5,000 units SC Q8 [facility] Last Admin: 03/12/17 06:05 Dose: 5,000 units Ferric Sodium Gluconate Complex 125 mg/ Sodium Chloride 110 mls @ 110 mls/hr IVPB DAILY [facility] Stop: 03/15/17 11:31 Last Admin: 03/11/17 10:25 Dose: 110 mls/hr Milrinone Lactate/Dextrose 20 (mg/ Sodium Chloride) 100 mls @ 11.53 mls/hr IV .Q8H41M [facility]; 0.375 MCG/KG/MIN PRN Reason: Protocol Last Admin: 03/07/17 13:12 Dose: Not Given Rosuvastatin Calcium (Crestor) 5 mg PO HS [facility] Last Admin: 03/11/17 21:31 Dose: 5 mg Sacubitril/Valsartan (Entresto 49 Mg-51 Mg) 1 tab PO BID [facility] Last Admin: 03/11/17 17:27 Dose: 1 tab Fluticasone/Salmeterol (Advair Diskus 500/50) 1 puff INH RQ12 [facility] Last Admin: 03/11/17 19:56 Dose: Not Given Spironolactone (Aldactone) 25 mg PO BID [facility] Last Admin: 03/11/17 17:26 Dose: 25 mg - Labs Labs: 03/12/17 06:56 03/11/17 06:31 PT 14.7 SECONDS (9.7-12.2) H 03/07/17 09:28 INR 1.3 03/07/17 09:28 APTT 33 SECONDS (21-34) 03/06/17 07:44 - Constitutional Appears: Well, No Acute Distress - Head Exam Head Exam: ATRAUMATIC, NORMAL INSPECTION, NORMOCEPHALIC - Eye Exam Eye Exam: EOMI, Normal appearance - ENT Exam ENT Exam: Mucous Membranes Moist - Neck Exam Neck Exam: Full ROM - Respiratory Exam Respiratory Exam: Decreased Breath Sounds, NORMAL BREATHING PATTERN. absent: Rales, Rhonchi, Wheezes - Cardiovascular Exam Cardiovascular Exam: REGULAR RHYTHM, +S1, +S2. absent: Murmur - GI/Abdominal Exam GI & Abdominal Exam: Distended, Soft, Normal Bowel Sounds. absent: Guarding, Rigid, Tenderness, Rebound - Rectal Exam Rectal Exam: Deferred - Extremities Exam Extremities Exam: absent: Calf Tenderness Additional comments: +1 non-pitting edema B/L No calf tenderness Palpable DP pulses bilaterally PICC line in left upper arm - Neurological Exam Neurological Exam: Alert, Awake, CN II-XII Intact, Normal Gait, Oriented x3 - Psychiatric Exam Psychiatric exam: Normal Affect, Normal Mood - Skin Skin Exam: Normal Color, Warm Assessment and Plan (1) NYHA class 3 acute on chronic systolic heart failure Assessment & Plan: * Congestive heart failure, severely decompensated * Cardiology (Nasim) on the case, help appreciated * s/p PICC line placement for anticipated for milirone drip * Nephrology (Dr. Archer) on case, help appreciated * Per Nephro, targeting ~2-3 lb weight loss per day * Echocardiogram (01/11/17): Mild to moderate concentric left ventricular hypertrophy. left ventricle systolic function is moderately impaired EF: 30-35% , moderate septal hypokinesis consistent with CAD, left ventricular diastolic function is normal. Left atrium is moderately dilated. Right atrium is moderate dilated. Mitral regurgitation is mild. Mild to mod tricupsid regurgitation, mild -moderate pulm HTN * Aspirin 81mg PO daily * Entresto 49/51 1 tab PO BID * Coreg 12.5 PO BID * Aldactone 25mg PO BID * Crestor 5mg PO qHS Status: Chronic (2) Ascites of liver Assessment & Plan: * Contributing factors: liver cirrhosis, dilated cardiomyopathy, strong alcohol use (6, 16 ounce Griffin lights since age 17-50s) * s/p Paracentesis and thoracentesis 03/07/17 * During thoracentesis about 1.2 L of straw-colored fluid was removed. During paracentesis about 2.4 L of straw-colored fluid removed. IR has also placed PICC line for possible anticipated milrinone drip given severity of congestive heart failure. * GI (Dr. Tao's group on case)-->help appreciated * Fluid studies were collected; No SBP on ascitic fluid * Signed off 03/07; Recommend from outpatient following and evaluation at tertiary care transplant facility. * Heart healthy diet * Salt restriction * Dietary consult for education on salt restriction * Abdominal US * Cholelithiasis. No sonographic evidence of acute cholecystitis. Cirrhotic appearing liver similar to that seen previously. No focal abnormalities. Intra- abdominal ascites again identified although difficult to quantify. Also remarks on Kidneys on the same ultrasound * Medications: * Patient started on Bumex 1 mg PO BID * Continue Aldactone 25mg BID * Will continue daily weights Status: Chronic (3) Metabolic alkalosis Assessment & Plan: * Likely secondary to Loop diuretics, lasix discontinue * Patient on bumex for diuresis * Bicarb improving * Will continue to monitor Status: Acute (4) Pleural effusion on right Assessment & Plan: * Contributing factors: liver cirrhosis, dilated cardiomyopathy * S/P thoracentesis 03/07, 1.2 L of fluid removed * Pulm (John), Dr. Reis covering, help appreciated * Per Dr. Reis's recommendation, started Advair 500-50 Q12 [facility] and Ventolin Q6 prn shortness of breath * No change seen on CXR from 03/08/17 but subjective improvement in shortness of breath noted by patient Status: Chronic (5) Anemia Assessment & Plan: * Suspected secondary to chronic disease * Reticulocyte count, iron studies, b12, folate, and occult blood ordered 03/06 * Patient's reticulocyte count is 1.9, low iron and low iron saturation, normal ferritin, negative stool occult blood. haptoglobin normal * Patient is on IV Ferrlecit as per nephrology since March 07. Status: Acute (6) Hypertension Assessment & Plan: * Patient currently with low BPs however still needs to be optimized on cardiac medications * Continue Coreg 12.5 mg PO BID * Aldactone 25mg PO BID * Entresto 49/51mg PO BID Status: Chronic (7) Hypocalcemia Assessment & Plan: * Low vit D 25-OH level * Ergocalciferol 50,000 Units PO once week on Fridays Status: Acute (8) Prophylactic measure Assessment & Plan: * Heparin 5000U SQ Q8H * Daily weights Status: Resolved
[2017-03-12 08:19] LABS: ALB/GLOB RATIO 0.9 (1.0-2.1); ALKALINE PHOSPHATASE 67 U/L (38-126); ALT/SGPT 14 U/L (21-72); AST/SGOT 32 U/L (17-59); BILIRUBIN,TOTAL 0.7 mg/dL (0.2-1.3); BLOOD UREA NITROGEN 32 mg/dL (9-20); CALCIUM 8.1 mg/dl (8.6-10.4); CARBON DIOXIDE 33 mmol/L (22-30); CHLORIDE 95 mmol/L (98-107); GFR AFRICAN-AMERICAN > 60; GLUCOSE,RANDOM 130 mg/dL (75-110); MAGNESIUM 1.7 mg/dL (1.6-2.3); PHOSPHOROUS 3.2 mg/dL (2.5-4.5); POTASSIUM 5.1 mmol/L (3.6-5.2); SODIUM 134 mmol/L (132-148); TOTAL PROTEIN 7.3 g/dL (6.3-8.3)
--- NOTE | 2017-03-12 09:17 | CP.PCM.PN ---
Subjective - Date & Time of Evaluation Date of Evaluation: 03/12/17 Time of Evaluation: 09:40 - Subjective Subjective: Nephrology progress note for Dr Archer's service Patient seating comfortably on the bed, states the shortness of breath and cough has overall improved. Patient is able to ambulate to the restroom with no significant difficulties. The lower extremities edema has also improved. Denies cp, nausea or vomiting. Denies dizziness or lightheadedness. Objective - Vital Signs/Intake and Output Vital Signs (last 24 hours): Temp Pulse Resp BP Pulse Ox 97.6 F 74 20 96/50 L 94 L 03/11/17 23:10 03/11/17 23:10 03/11/17 23:10 03/11/17 23:10 03/11/17 23:10 Intake and Output: 03/12/17 03/12/17 06:59 18:59 Output Total 2100 Balance -2100 - Medications Medications: Current Medications Albuterol (Ventolin Hfa 90 Mcg/Actuation (8 G)) 1 puff INH RQ6 PRN PRN Reason: Shortness of Breath Aspirin (Aspirin Chewable) 81 mg PO DAILY [facility] Last Admin: 03/11/17 09:45 Dose: 81 mg Benzonatate (Tessalon Perles) 100 mg PO TID PRN PRN Reason: Cough Last Admin: 03/11/17 21:31 Dose: 100 mg Bumetanide (Bumex) 1 mg PO BID [facility] Last Admin: 03/11/17 17:26 Dose: 1 mg Carvedilol (Coreg) 12.5 mg PO BID [facility] Last Admin: 03/11/17 17:27 Dose: 12.5 mg Diphenhydramine HCl (Benadryl) 25 mg PO Q6 PRN PRN Reason: Itching / Pruritus Last Admin: 03/11/17 09:45 Dose: 25 mg Ergocalciferol (Drisdol 50,000 Intl Units Cap) 1 cap PO Q7D [facility] Last Admin: 03/08/17 14:11 Dose: 1 cap Heparin Sodium (Porcine) (Heparin) 5,000 units SC Q8 [facility] Last Admin: 03/12/17 06:05 Dose: 5,000 units Ferric Sodium Gluconate Complex 125 mg/ Sodium Chloride 110 mls @ 110 mls/hr IVPB DAILY [facility] Stop: 03/15/17 11:31 Last Admin: 03/11/17 10:25 Dose: 110 mls/hr Milrinone Lactate/Dextrose 20 (mg/ Sodium Chloride) 100 mls @ 11.53 mls/hr IV .Q8H41M KAYLEEN; 0.375 MCG/KG/MIN PRN Reason: Protocol Last Admin: 03/07/17 13:12 Dose: Not Given Rosuvastatin Calcium (Crestor) 5 mg PO HS [facility] Last Admin: 03/11/17 21:31 Dose: 5 mg Sacubitril/Valsartan (Entresto 49 Mg-51 Mg) 1 tab PO BID KAYLEEN Last Admin: 03/11/17 17:27 Dose: 1 tab Fluticasone/Salmeterol (Advair Diskus 500/50) 1 puff INH RQ12 [facility] Last Admin: 03/11/17 19:56 Dose: Not Given Spironolactone (Aldactone) 25 mg PO BID [facility] Last Admin: 03/11/17 17:26 Dose: 25 mg - Labs Labs: 03/12/17 06:56 03/12/17 06:56 PT 14.7 SECONDS (9.7-12.2) H 03/07/17 09:28 INR 1.3 03/07/17 09:28 APTT 33 SECONDS (21-34) 03/06/17 07:44 - Constitutional Appears: No Acute Distress, Older Than Stated Age, Chronically Ill - Head Exam Head Exam: ATRAUMATIC, NORMAL INSPECTION, NORMOCEPHALIC - Eye Exam Eye Exam: Normal appearance. absent: Scleral icterus Pupil Exam: NORMAL ACCOMODATION - ENT Exam ENT Exam: Mucous Membranes Dry - Neck Exam Neck Exam: Normal Inspection. absent: Lymphadenopathy - Respiratory Exam Respiratory Exam: Clear to Ausculation Bilateral, NORMAL BREATHING PATTERN. absent: Rales, Rhonchi, Wheezes, Respiratory Distress, Stridor - Cardiovascular Exam Cardiovascular Exam: REGULAR RHYTHM, +S1, +S2, Murmur. absent: Bradycardia, Tachycardia - GI/Abdominal Exam GI & Abdominal Exam: Distended, Firm, Soft, Normal Bowel Sounds. absent: Guarding, Rigid, Tenderness Additional comments: + fluid wave. - Extremities Exam Extremities Exam: Pedal Edema (+2). absent: Tenderness - Back Exam Back Exam: NORMAL INSPECTION, rash noted - Neurological Exam Neurological Exam: Alert, Awake, Oriented x3 - Psychiatric Exam Psychiatric exam: Normal Affect, Normal Mood - Skin Skin Exam: Abrasion, Dry, Intact, Rash, Warm Assessment and Plan (1) HELENE (acute kidney injury) Assessment & Plan: Likely pre-renal due to decompensated CHF causing venous congestion. Renal function improved with diuresis. Patient to follow up with nephrology as outpatient. Status: Acute (2) Systolic CHF Assessment & Plan: Respiratory status and lower extremities edema improved. Patient to continue with bumex 1 mg po bid. Patient was consoled on weighing himself daily, and to aim for 1-2 lb weight loss a day, and keeping a log of his weight. Patient was also counseled on the importance of following up with gas station attendant, and the fact that patient will need a close follow up with coin machine mechanic as well, and his medications needs to be adjusted. Patient to continue with entresto 49/51 mg 1 tab po bid, to be adjusted as outpatient. Continue with aldactone 25 mg bid, and coreg 12.5 mg bid. Status: Chronic (3) Hypertension Assessment & Plan: Management as above. Status: Chronic (4) Iron deficiency anemia Assessment & Plan: Continue with po iron bid. Status: Acute (5) Liver cirrhosis Assessment & Plan: Follow up as per GI. Status: Chronic (6) Ascites of liver Status: Chronic (7) Hypocalcemia Assessment & Plan: Likely to due vitamin D deficiency. Continues to improve with po vitamin D, drisdol qweekly. Intact PTH pending Status: Acute
--- NOTE | 2017-03-12 09:48 | RAD ---
HISTORY: History Right Pleural Effusion S/P Thoracentesis COMPARISON: 03/08/2017 TECHNIQUE: Chest PA and lateral FINDINGS: LUNGS: Right basal opacification consistent with right pleural effusion and compressive atelectasis renoted. Size of the right pleural effusion appears less. Underlying concomitant infiltrates not excluded. No interval left hemithoracic pathology noted PLEURA: No pneumothorax. Decrease right pleural effusion CARDIOVASCULAR: Cardiomegaly. Mild central pulmonary venous congestion possibly chronic suspect Position/ configuration of pacemaker Satisfactory. OSSEOUS STRUCTURES: No significant abnormalities. VISUALIZED UPPER ABDOMEN: Normal. OTHER FINDINGS: None. IMPRESSION: Status post right thoracentesis -decreased right pleural effusion - residual right pleural fluid and compressive right basal atelectasis inferred. No pneumothorax. . Cardiomegaly and pulmonary venous congestion -similar
[2017-03-12 10:04] VITALS: BP 120/70; PULSE 90; RESP 18; TEMP 97.5; O2SAT 97
[2017-03-12] MEDS: Sacubitril/Valsartan 49-51 Tab PO SCH (10:05)
[2017-03-12] MEDS: Fluticasone-Salmeterol 500-50mcg Diskus INH SCH (10:16)
[2017-03-12] MEDS: Ferric Sodium Gluconat Complex 125 MG in Sodium Chloride 0.9% 100 ML IVPB SCH (11:08)
--- NOTE | 2017-03-12 12:40 | CP.PCM.DIS ---
<Flower Pedroza - Last Filed: 03/12/17 13:48> Provider - Provider Date of Admission: 03/05/17 21:36 Attending physician: Abimael Mahajan MD Consults: Nephro: Gianni Cardiology: Nasim GI: Dinh Pulmonary: John Time Spent in preparation of Discharge (in minutes): 40 Diagnosis - Discharge Diagnosis (1) NYHA class 3 acute on chronic systolic heart failure Status: Chronic (2) Ascites of liver Status: Chronic (3) Metabolic alkalosis Status: Acute (4) Pleural effusion on right Status: Chronic Priority: Medium (5) HELENE (acute kidney injury) Status: Resolved (6) Anemia Status: Acute (7) Hypertension Status: Chronic Priority: Medium (8) Hypocalcemia Status: Acute Hospital Course - Lab Results Lab Results: Micro Results 03/07/17 10:39 Ascitic Fluid Gram Stain - Final 03/07/17 10:39 Ascitic Fluid Body Fluid Culture - Final NO GROWTH AFTER 4 DAYS Most Recent Lab Values WBC 9.0 K/uL (4.8-10.8) 03/12/17 06:56 RBC 3.70 Mil/uL (4.40-5.90) L 03/12/17 06:56 Hgb 8.7 g/dL (12.0-18.0) L 03/12/17 06:56 Hct 29.1 % (35.0-51.0) L 03/12/17 06:56 MCV 78.7 fL (80.0-94.0) L 03/12/17 06:56 MCH 23.6 pg (27.0-31.0) L 03/12/17 06:56 MCHC 30.0 g/dL (33.0-37.0) L 03/12/17 06:56 RDW 21.3 % (11.5-14.5) H 03/12/17 06:56 Plt Count 187 K/uL (130-400) 03/12/17 06:56 MPV 8.7 fL (7.2-11.7) 03/12/17 06:56 Neut % (Auto) 64.0 % (50.0-75.0) 03/12/17 06:56 Lymph % (Auto) 17.4 % (20.0-40.0) L 03/12/17 06:56 George % (Auto) 15.7 % (0.0-10.0) H 03/12/17 06:56 Eos % (Auto) 1.8 % (0.0-4.0) 03/12/17 06:56 Baso % (Auto) 1.1 % (0.0-2.0) 03/12/17 06:56 Neut # 5.8 K/uL (1.8-7.0) 03/12/17 06:56 Lymph # 1.6 K/uL (1.0-4.3) 03/12/17 06:56 George # 1.4 K/uL (0.0-0.8) H 03/12/17 06:56 Eos # 0.2 K/uL (0.0-0.7) 03/12/17 06:56 Baso # 0.1 K/uL (0.0-0.2) 03/12/17 06:56 Retic Count 1.9 % (0.5-1.5) H D 03/06/17 17:26 Haptoglobin 150 mg/dL (43-212) 03/06/17 17:26 PT 14.7 SECONDS (9.7-12.2) H 03/07/17 09:28 INR 1.3 03/07/17 09:28 APTT 33 SECONDS (21-34) 03/06/17 07:44 Sodium 134 mmol/L (132-148) 03/12/17 06:56 Potassium 5.1 mmol/L (3.6-5.2) 03/12/17 06:56 Chloride 95 mmol/L (98-107) L 03/12/17 06:56 Carbon Dioxide 33 mmol/L (22-30) H 03/12/17 06:56 Anion Gap 12 (10-20) 03/12/17 06:56 BUN 32 mg/dL (9-20) H 03/12/17 06:56 Creatinine 1.2 mg/dL (0.8-1.5) 03/12/17 06:56 Est GFR ( Amer) > 60 03/12/17 06:56 Est GFR (Non-Af Amer) > 60 03/12/17 06:56 POC Glucose (mg/dL) 119 mg/dL (65-110) H 03/06/17 05:59 Random Glucose 130 mg/dL (75-110) H 03/12/17 06:56 Calcium 8.1 mg/dl (8.6-10.4) L 03/12/17 06:56 Phosphorus 3.2 mg/dL (2.5-4.5) 03/12/17 06:56 Magnesium 1.7 mg/dL (1.6-2.3) 03/12/17 06:56 Iron 18 ug/dL (49-181) L 03/06/17 18:19 TIBC 443 ug/dL (250-450) 03/06/17 18:19 % Saturation 4.06 (20-55) L 03/06/17 18:19 Ferritin 15.3 ng/mL 03/06/17 17:26 Total Bilirubin 0.7 mg/dL (0.2-1.3) 03/12/17 06:56 AST 32 U/L (17-59) 03/12/17 06:56 ALT 14 U/L (21-72) L 03/12/17 06:56 Alkaline Phosphatase 67 U/L (38-126) 03/12/17 06:56 Lactate Dehydrogenase 510 U/L (313-618) 03/07/17 09:28 Troponin I 0.0220 ng/mL (0.00-0.120) 03/05/17 21:34 NT-Pro-B Natriuret Pep 5470 pg/mL (0-900) H 03/05/17 21:34 Total Protein 7.3 g/dL (6.3-8.3) 03/12/17 06:56 Albumin 3.5 g/dL (3.5-5.0) 03/12/17 06:56 Globulin 3.8 gm/dL (2.2-3.9) 03/12/17 06:56 Albumin/Globulin Ratio 0.9 (1.0-2.1) L 03/12/17 06:56 Alpha Fetoprotein 1.8 ng/mL (0.0-7.5) 03/07/17 09:58 Vitamin B12 645 pg/mL (239-931) 03/06/17 17:26 25-OH Vitamin D Total 18.8 NG/ML (30.0-100.0) L 03/07/17 11:40 Folate 10.4 ng/mL 03/06/17 17:26 TSH 3rd Generation 3.34 mIU/L (0.46-4.68) 03/05/17 21:34 Urine Color Yellow (YELLOW) 03/05/17 22:22 Urine Clarity Clear (Clear) 03/05/17 22:22 Urine pH 5.0 (5.0-8.0) 03/05/17 22:22 Ur Specific [place] 1.012 (1.003-1.030) 03/05/17 22:22 Urine Protein 1+ mg/dL (NEGATIVE) H 03/05/17 22:22 Urine Glucose (UA) Normal mg/dL (Normal) 03/05/17 22:22 Urine Ketones Negative mg/dL (NEGATIVE) 03/05/17 22:22 Urine Blood Negative (NEGATIVE) 03/05/17 22:22 Urine Nitrate Negative (NEGATIVE) 03/05/17 22:22 Urine Bilirubin Negative (NEGATIVE) 03/05/17 22:22 Urine Urobilinogen 4.0 mg/dL (0.2-1.0) 03/05/17 22:22 Ur Leukocyte Esterase Neg Kathe/uL (Negative) 03/05/17 22:22 Urine WBC (Auto) < 1 /hpf (0-5) 03/05/17 22:22 Urine RBC (Auto) 1 /hpf (0-3) 03/05/17 22:22 Urine Bacteria Rare (<OCC) 03/05/17 22:22 Hyaline Casts >20 /lpf (0-2) H 03/05/17 22:22 Ur Random Creatinine 139.1 mg/dL 03/06/17 14:46 U Random Total Protein 133 mg/g creat (22-128) H 03/06/17 14:46 Ur Random Sodium 52 mmol/L 03/06/17 14:46 Ur Random Urea Nitrogn 502 mg/dL 03/06/17 14:46 Urine Microalbumin 25.4 mg/L (0.0-16.6) H 03/06/17 22:44 Fluid Source Peritoneal 03/07/17 12:03 Fluid Appearance Sl cloudy (CLEAR) 03/07/17 12:03 Fluid WBC 261.0 /mm3 (0.0-300.0) 03/07/17 12:03 Fluid RBC 2542.0 /mm3 (0.0-0.0) H 03/07/17 12:03 Fluid Tot Cell Count 100 (0-0) H 03/07/17 12:03 Fluid Neutrophils 11.0 % (0-0) H 03/07/17 12:03 Fluid Lymphocytes 86.0 % (0-0) H 03/07/17 12:03 Fld Monocyte/Macrophag 2 % (0-0) H 03/07/17 12:03 Fluid Albumin 1.7 g/dL 03/07/17 12:03 Fluid Comment 03/07/17 12:03 Peritoneal LDH 124 U/L (<63) H 03/07/17 12:03 Pleural LDH 124 U/L 03/07/17 12:03 Stool Occult Blood Negative (NEGATIVE) 03/06/17 22:30 Urine Opiates Screen Negative (NEGATIVE) 03/05/17 22:20 Urine Methadone Screen Negative (NEGATIVE) 03/05/17 22:20 Ur Barbiturates Screen Negative (NEGATIVE) 03/05/17 22:20 Ur Phencyclidine Scrn Negative (NEGATIVE) 03/05/17 22:20 Ur Amphetamines Screen Negative (NEGATIVE) 03/05/17 22:20 U Benzodiazepines Scrn Negative (NEGATIVE) 03/05/17 22:20 U Oth Cocaine Metabols Negative (NEGATIVE) 03/05/17 22:20 U Cannabinoids Screen Negative (NEGATIVE) 03/05/17 22:20 Complement C3 89.0 mg/dL (88.0-165.0) 03/07/17 09:28 Complement C4 51.1 mg/dL (14.0-44.0) H 03/07/17 09:28 HIV 1&2 Ag/Ab, 4th Gen Nonreactive (Nonreactive) 03/07/17 09:28 Influenza Typ A,B (EIA) Negative for flu a/b (NEGATIVE) 03/05/17 21:11 Blood Type A POSITIVE 03/09/17 21:51 Antibody Screen Negative 03/09/17 21:51 - Hospital Course Hospital Course: Patient is a 67M with a PMH of CHF (last EF 34%) and AICD placement in 2011, HTN , Liver cirrhosis, recurrent pleural effusions who comes to the ED at the request of Jluis Rock APN due to SOB. He told him to see Dr. Rouse for cardiology in the hospital. He has had worsening SOB for 2 weeks with increasing abdominal distension. He has now noticed swelling of the extremities bilaterally as well as two breaks in the skin that are draining clear fluid. He states that his pants and socks get soaked. He has been coughing throughout the day. He states he breaths better if he is sitting up. He is unable to breath if he is lying flat. Denies chest pain, fever, chills. States he has been compliant with his medications and has been eating a low salt diet. CXR showed small to moderate right pleural effusion. Abdominal US showed cholelithiasis, cirrhotic appearing liver, intra-abdominal ascites (see full report). Patient was started on IV lasix, aldactone, entresto. Cardiology was consulted and following. During hospital stay, patient was found to have Acute Kidney Injury and Anemia, nephrology was consulted. IV iron was started. Pulmonary was consulted for right pleural effusion. GI was also consulted for liver cirrhosis with recurrent ascites. Patient underwent paracentesis where 2.4L of fluid was removed. Patient also had a thorcentesis done in which 1.2 L of fluid was removed. Patient tolerated both procedures well. Patient's symptoms improved post procedure. Patient received a PICC line in anticipation of starting the patient on Milrinone to increase systolic function. Dr Archer (nephrology) spoke to Dr Rouse ( cardiology), decision was made to hold off milrinone and try to improve diuresis with Lasix, increased entresto dose, along with aldactone. During course, patient was borderline hypotensive but remained asymptomatic. Patient fluid status was monitored. Daily weights were performed. Per nephrology recommendations, IV Lasix was discontinued, patient was started on Bumex 1mg PO BID. Repeat CXR on 03/12 showed decreased right pleural effusion, Right pleural fluid compressive, Right basel atelectasis (see full report). On day of discharge, patient was doing well. Breathing improved. Patient cleared by Nephrology and cardiology, medically stable for discharge. Patient to be discharged to [facility]. PICC line in left upper arm was pulled, hemostasis was achieved, 4x4 dressing applied to site. All medications were reconciled. Patient instructed to follow up with Dr Archer within 1 week. Patient also to follow up with Dr Rouse within 1 week. All questions and concerns were addressed. Discharge Medications as followed: Asprin 81mg PO daily Bumex 1mg PO BID Coreg 12.5mg PO BID Ergocalciferol 1 cap PO Q7D Ferrous Sulfate 325mg PO BID Colace 100mg PO BID Crestor 5mg PO QHS Entresto 49/51mg PO BID Aldactone 25mg PO BID Discharge Exam - Head Exam Head Exam: ATRAUMATIC, NORMAL INSPECTION, NORMOCEPHALIC - Eye Exam Eye Exam: EOMI, Normal appearance - ENT Exam ENT Exam: Mucous Membranes Moist - Neck Exam Neck exam: Full Rom - Respiratory Exam Respiratory Exam: Decreased Breath Sounds, NORMAL BREATHING PATTERN, UNREMARKABLE. absent: Rales, Rhonchi, Wheezes, Respiratory Distress - Cardiovascular Exam Cardiovascular Exam: REGULAR RHYTHM, +S1, +S2 - GI/Abdominal Exam GI & Abdominal Exam: Distended, Normal Bowel Sounds, Soft. absent: Firm, Rebound, Rigid - Rectal Exam Rectal Exam: Deferred - Extremities Exam Additional comments: +1 non-pitting edema B/L No calf tenderness Palpable DP pulses bilaterally PICC line in left upper arm removed Discharge Plan - Discharge Medications Prescriptions: Bumetanide [Bumex] 1 mg PO BID #60 tab Docusate Sodium [Colace] 100 mg PO BID #60 capsule Ferrous Sulfate 325 mg PO BID #60 tablet - Follow Up Plan Condition: GUARDED Disposition: REHAB FACILITY/REHAB UNIT Instructions: Heart Failure (DC), Heart Healthy Diet (DC), Pleural Effusion (DC ) Additional Instructions: Please continue medications as prescribed Patient to follow up with Dr Archer within 1 week [phone] Patient to follow up with Dr Rouse within 1 week [phone] <Abimael Mahajan - Last Filed: 03/12/17 19:29> Provider - Provider Date of Admission: 03/05/17 21:36 Attending physician: Abimael Mahajan MD Hospital Course - Lab Results Lab Results: Micro Results 03/07/17 10:39 Ascitic Fluid Gram Stain - Final 03/07/17 10:39 Ascitic Fluid Body Fluid Culture - Final NO GROWTH AFTER 4 DAYS Most Recent Lab Values WBC 9.0 K/uL (4.8-10.8) 03/12/17 06:56 RBC 3.70 Mil/uL (4.40-5.90) L 03/12/17 06:56 Hgb 8.7 g/dL (12.0-18.0) L 03/12/17 06:56 Hct 29.1 % (35.0-51.0) L 03/12/17 06:56 MCV 78.7 fL (80.0-94.0) L 03/12/17 06:56 MCH 23.6 pg (27.0-31.0) L 03/12/17 06:56 MCHC 30.0 g/dL (33.0-37.0) L 03/12/17 06:56 RDW 21.3 % (11.5-14.5) H 03/12/17 06:56 Plt Count 187 K/uL (130-400) 03/12/17 06:56 MPV 8.7 fL (7.2-11.7) 03/12/17 06:56 Neut % (Auto) 64.0 % (50.0-75.0) 03/12/17 06:56 Lymph % (Auto) 17.4 % (20.0-40.0) L 03/12/17 06:56 George % (Auto) 15.7 % (0.0-10.0) H 03/12/17 06:56 Eos % (Auto) 1.8 % (0.0-4.0) 03/12/17 06:56 Baso % (Auto) 1.1 % (0.0-2.0) 03/12/17 06:56 Neut # 5.8 K/uL (1.8-7.0) 03/12/17 06:56 Lymph # 1.6 K/uL (1.0-4.3) 03/12/17 06:56 George # 1.4 K/uL (0.0-0.8) H 03/12/17 06:56 Eos # 0.2 K/uL (0.0-0.7) 03/12/17 06:56 Baso # 0.1 K/uL (0.0-0.2) 03/12/17 06:56 Retic Count 1.9 % (0.5-1.5) H D 03/06/17 17:26 Haptoglobin 150 mg/dL (43-212) 03/06/17 17:26 PT 14.7 SECONDS (9.7-12.2) H 03/07/17 09:28 INR 1.3 03/07/17 09:28 APTT 33 SECONDS (21-34) 03/06/17 07:44 Sodium 134 mmol/L (132-148) 03/12/17 06:56 Potassium 5.1 mmol/L (3.6-5.2) 03/12/17 06:56 Chloride 95 mmol/L (98-107) L 03/12/17 06:56 Carbon Dioxide 33 mmol/L (22-30) H 03/12/17 06:56 Anion Gap 12 (-20) 03/12/17 06:56 BUN 32 mg/dL (9-20) H 03/12/17 06:56 Creatinine 1.2 mg/dL (0.8-1.5) 03/12/17 06:56 Est GFR ( Amer) > 60 03/12/17 06:56 Est GFR (Non-Af Amer) > 60 03/12/17 06:56 POC Glucose (mg/dL) 119 mg/dL (65-110) H 03/06/17 05:59 Random Glucose 130 mg/dL (75-110) H 03/12/17 06:56 Calcium 8.1 mg/dl (8.6-10.4) L 03/12/17 06:56 Phosphorus 3.2 mg/dL (2.5-4.5) 03/12/17 06:56 Magnesium 1.7 mg/dL (1.6-2.3) 03/12/17 06:56 Iron 18 ug/dL (49-181) L 03/06/17 18:19 TIBC 443 ug/dL (250-450) 03/06/17 18:19 % Saturation 4.06 (20-55) L 03/06/17 18:19 Ferritin 15.3 ng/mL 03/06/17 17:26 Total Bilirubin 0.7 mg/dL (0.2-1.3) 03/12/17 06:56 AST 32 U/L (17-59) 03/12/17 06:56 ALT 14 U/L (21-72) L 03/12/17 06:56 Alkaline Phosphatase 67 U/L (38-126) 03/12/17 06:56 Lactate Dehydrogenase 510 U/L (313-618) 03/07/17 09:28 Troponin I 0.0220 ng/mL (0.00-0.120) 03/05/17 21:34 NT-Pro-B Natriuret Pep 5470 pg/mL (0-900) H 03/05/17 21:34 Total Protein 7.3 g/dL (6.3-8.3) 03/12/17 06:56 Albumin 3.5 g/dL (3.5-5.0) 03/12/17 06:56 Globulin 3.8 gm/dL (2.2-3.9) 03/12/17 06:56 Albumin/Globulin Ratio 0.9 (1.0-2.1) L 03/12/17 06:56 Alpha Fetoprotein 1.8 ng/mL (0.0-7.5) 03/07/17 09:58 Vitamin B12 645 pg/mL (239-931) 03/06/17 17:26 25-OH Vitamin D Total 18.8 NG/ML (30.0-100.0) L 03/07/17 11:40 Folate 10.4 ng/mL 03/06/17 17:26 TSH 3rd Generation 3.34 mIU/L (0.46-4.68) 03/05/17 21:34 PTH Intact Whole Molec 139 pg/mL (14-64) H 03/08/17 06:35 Urine Color Yellow (YELLOW) 03/05/17 22:22 Urine Clarity Clear (Clear) 03/05/17 22:22 Urine pH 5.0 (5.0-8.0) 03/05/17 22:22 Ur Specific [place] 1.012 (1.003-1.030) 03/05/17 22:22 Urine Protein 1+ mg/dL (NEGATIVE) H 03/05/17 22:22 Urine Glucose (UA) Normal mg/dL (Normal) 03/05/17 22:22 Urine Ketones Negative mg/dL (NEGATIVE) 03/05/17 22:22 Urine Blood Negative (NEGATIVE) 03/05/17 22:22 Urine Nitrate Negative (NEGATIVE) 03/05/17 22:22 Urine Bilirubin Negative (NEGATIVE) 03/05/17 22:22 Urine Urobilinogen 4.0 mg/dL (0.2-1.0) 03/05/17 22:22 Ur Leukocyte Esterase Neg [place]athe/uL (Negative) 03/05/17 22:22 Urine WBC (Auto) < 1 /hpf (0-5) 03/05/17 22:22 Urine RBC (Auto) 1 /hpf (0-3) 03/05/17 22:22 Urine Bacteria Rare (<OCC) 03/05/17 22:22 Hyaline Casts >20 /lpf (0-2) H 03/05/17 22:22 Ur Random Creatinine 139.1 mg/dL 03/06/17 14:46 U Random Total Protein 133 mg/g creat (22-128) H 03/06/17 14:46 Ur Random Sodium 52 mmol/L 03/06/17 14:46 Ur Random Urea Nitrogn 502 mg/dL 03/06/17 14:46 Urine Microalbumin 25.4 mg/L (0.0-16.6) H 03/06/17 22:44 Fluid Source Peritoneal 03/07/17 12:03 Fluid Appearance Sl cloudy (CLEAR) 03/07/17 12:03 Fluid WBC 261.0 /mm3 (0.0-300.0) 03/07/17 12:03 Fluid RBC 2542.0 /mm3 (0.0-0.0) H 03/07/17 12:03 Fluid Tot Cell Count 100 (0-0) H 03/07/17 12:03 Fluid Neutrophils 11.0 % (0-0) H 03/07/17 12:03 Fluid Lymphocytes 86.0 % (0-0) H 03/07/17 12:03 Fld Monocyte/Macrophag 2 % (0-0) H 03/07/17 12:03 Fluid Albumin 1.7 g/dL 03/07/17 12:03 Fluid Comment 03/07/17 12:03 Peritoneal LDH 124 U/L (<63) H 03/07/17 12:03 Pleural LDH 124 U/L 03/07/17 12:03 Stool Occult Blood Negative (NEGATIVE) 03/06/17 22:30 Urine Opiates Screen Negative (NEGATIVE) 03/05/17 22:20 Urine Methadone Screen Negative (NEGATIVE) 03/05/17 22:20 Ur Barbiturates Screen Negative (NEGATIVE) 03/05/17 22:20 Ur Phencyclidine Scrn Negative (NEGATIVE) 03/05/17 22:20 Ur Amphetamines Screen Negative (NEGATIVE) 03/05/17 22:20 U Benzodiazepines Scrn Negative (NEGATIVE) 03/05/17 22:20 U Oth Cocaine Metabols Negative (NEGATIVE) 03/05/17 22:20 U Cannabinoids Screen Negative (NEGATIVE) 03/05/17 22:20 Complement C3 89.0 mg/dL (88.0-165.0) 03/07/17 09:28 Complement C4 51.1 mg/dL (14.0-44.0) H 03/07/17 09:28 HIV 1&2 Ag/Ab, 4th Gen Nonreactive (Nonreactive) 03/07/17 09:28 Influenza Typ A,B (EIA) Negative for flu a/b (NEGATIVE) 03/05/17 21:11 Blood Type A POSITIVE 03/09/17 21:51 Antibody Screen Negative 03/09/17 21:51 Attending/Attestation - Attestation I have personally seen and examined this patient.: Yes I have fully participated in the care of the patient.: Yes I have reviewed all pertinent clinical information, including history, physical exam and plan: Yes Notes (Text): 03/12/17 19:28 Patient was seen and examined at 8:30 AM 03/12/17 665 B Discharge plan was thoroughly gone over with the resident. Abimael Mahajan D.O.
--- NOTE | 2017-03-12 14:20 | CP.PCM.PN ---
Subjective - Date & Time of Evaluation Date of Evaluation: 03/12/17 Time of Evaluation: 12:15 Objective - Vital Signs/Intake and Output Vital Signs (last 24 hours): Temp Pulse Resp BP Pulse Ox 97.5 F L 90 18 120/70 97 03/12/17 10:03 03/12/17 10:03 03/12/17 10:03 03/12/17 10:05 03/12/17 10:03 Intake and Output: 03/12/17 03/12/17 06:59 18:59 Intake Total 500 Output Total 2100 Balance -2100 500 - Medications Medications: Current Medications Albuterol (Ventolin Hfa 90 Mcg/Actuation (8 G)) 1 puff INH RQ6 PRN PRN Reason: Shortness of Breath Aspirin (Aspirin Chewable) 81 mg PO DAILY [facility] Last Admin: 03/12/17 10:05 Dose: 81 mg Benzonatate (Tessalon Perles) 100 mg PO TID PRN PRN Reason: Cough Last Admin: 03/12/17 10:05 Dose: 100 mg Bumetanide (Bumex) 1 mg PO BID [facility] Last Admin: 03/12/17 10:05 Dose: 1 mg Carvedilol (Coreg) 12.5 mg PO BID [facility] Last Admin: 03/12/17 10:05 Dose: 12.5 mg Diphenhydramine HCl (Benadryl) 25 mg PO Q6 PRN PRN Reason: Itching / Pruritus Last Admin: 03/12/17 10:11 Dose: 25 mg Ergocalciferol (Drisdol 50,000 Intl Units Cap) 1 cap PO Q7D [facility] Last Admin: 03/08/17 14:11 Dose: 1 cap Heparin Sodium (Porcine) (Heparin) 5,000 units SC Q8 [facility] Last Admin: 03/12/17 06:05 Dose: 5,000 units Ferric Sodium Gluconate Complex 125 mg/ Sodium Chloride 110 mls @ 110 mls/hr IVPB DAILY [facility] Stop: 03/15/17 11:31 Last Admin: 03/12/17 11:08 Dose: 110 mls/hr Milrinone Lactate/Dextrose 20 (mg/ Sodium Chloride) 100 mls @ 11.53 mls/hr IV .Q8H41M [facility]AYLEEN; 0.375 MCG/KG/MIN PRN Reason: Protocol Last Admin: 03/07/17 13:12 Dose: Not Given Rosuvastatin Calcium (Crestor) 5 mg PO HS [facility] Last Admin: 03/11/17 21:31 Dose: 5 mg Sacubitril/Valsartan (Entresto 49 Mg-51 Mg) 1 tab PO BID [facility] Last Admin: 03/12/17 10:05 Dose: 1 tab Fluticasone/Salmeterol (Advair Diskus 500/50) 1 puff INH RQ12 [facility] Last Admin: 03/12/17 10:16 Dose: Not Given Spironolactone (Aldactone) 25 mg PO BID [facility] Last Admin: 03/12/17 10:05 Dose: 25 mg - Labs Labs: 03/12/17 06:56 03/12/17 06:56 PT 14.7 SECONDS (9.7-12.2) H 03/07/17 09:28 INR 1.3 03/07/17 09:28 APTT 33 SECONDS (21-34) 03/06/17 07:44 Assessment and Plan (1) Dyspnea Status: Acute (2) Congestive heart failure Status: Acute (3) Pleural effusion Status: Acute (4) Ascites Status: Acute (5) COPD (chronic obstructive pulmonary disease) Status: Acute
--- NOTE | 2017-03-12 14:58 | PCM.HF ---
Heart Failure Core Measure - Heart Failure Ejection Fraction: Less Than 40 % JUANITA Inhibitor Prescribed: No Contraindication/Reason for not providing: on arb combo (entresto); avel Beta-Erlinda Prescribed: Carvedilol Angiotensin II Receptor Erlinda Prescribed: Yes AnticoagulationTherapy for Atrial Fibrillation/Atrialflutter: No Contraindication/Reason for not providing: no afib Aldosterone Antagonist Prescribed: No Contraindication/Reason for not providing: AVEL Hydralazine Nitrate Prescribed: No Contraindication/Reason for not providing: AVEL Implantable Cardioverter Defibrillator Therapy: Yes Contraindication/Reason for not providing: has AICD Cardiac Resynchronization Therapy Prescribed: No Contraindication/Reason for not providing: has AICD - Follow up Will be discharged to: Home Follow Up Date (must be within 7 days from discharge): 03/15/17 Follow Up Time: 09:00
== END 2017-03-12 15:03 | DRG 292 ==
LOC: C.ER 19:58 → C.9E 21:36 → C.6T 03-06 02:34
PROVIDERS: ADMIT Family Medicine; ATTEND Family Medicine
PROC: 02HV33Z Insertion of Infusion Device into Superior Vena Cava, Percutaneous Approach (ICD-10-PCS; principal; 2017-03-07)
PROC: B5181ZA Fluoroscopy of Superior Vena Cava using Low Osmolar Contrast, Guidance (ICD-10-PCS; 2017-03-07)
PROC: B548ZZA Ultrasonography of Superior Vena Cava, Guidance (ICD-10-PCS; 2017-03-07)
PROC: 0W9G3ZZ Drainage of Peritoneal Cavity, Percutaneous Approach (ICD-10-PCS; 2017-03-07)
PROC: 0W993ZZ Drainage of Right Pleural Cavity, Percutaneous Approach (ICD-10-PCS; 2017-03-07)
DX: I11.0 Hypertensive heart disease with heart failure (principal); N17.9 Acute kidney failure, unspecified; E87.3 Alkalosis; J90 Pleural effusion, not elsewhere classified; I27.20 Pulmonary hypertension, unspecified; E83.51 Hypocalcemia; I42.0 Dilated cardiomyopathy; I50.23 Acute on chronic systolic (congestive) heart failure; J44.9 Chronic obstructive pulmonary disease, unspecified; Z87.891 Personal history of nicotine dependence; Z90.49 Acquired absence of other specified parts of digestive tract; Z95.810 Presence of automatic (implantable) cardiac defibrillator; I34.0 Nonrheumatic mitral (valve) insufficiency; I25.10 Atherosclerotic heart disease of native coronary artery without angina pectoris; E78.00 Pure hypercholesterolemia, unspecified; E11.9 Type 2 diabetes mellitus without complications; D50.9 Iron deficiency anemia, unspecified; F10.21 Alcohol dependence, in remission; K70.31 Alcoholic cirrhosis of liver with ascites

== ENCOUNTER 2017-07-18 11:55 | Inpatient (IN) | payer MEDICARE, BC ==
[2017-07-18 11:56] VITALS: BMI 28.8
[2017-07-18 13:57] LABS: BASO # 0.1 K/uL (0.0-0.2); BASO % 0.8 % (0.0-2.0); EOS # 0.2 K/uL (0.0-0.7); EOS % 2.4 % (0.0-4.0); LYMPH # 0.8 K/uL (1.0-4.3); LYMPH % 12.5 % (20.0-40.0); MEAN CORPUSCULAR HEMOGLOBIN 28.2 pg (27.0-31.0); MEAN CORPUSCULAR HGB CONC 32.3 g/dL (33.0-37.0); MEAN PLATELET VOLUME 7.5 fL (7.2-11.7); MONO % 15.5 % (0.0-10.0); NEUT # 4.5 K/uL (1.8-7.0); NEUT % 68.8 % (50.0-75.0); NRBC % 0.1 % (0.0-2.0); RBC 3.53 Mil/uL (4.40-5.90); RED CELL DISTRIBUTION WIDTH 16.6 % (11.5-14.5); WHITE BLOOD COUNT 6.5 K/uL (4.8-10.8)
[2017-07-18 14:01] LABS: MEAN CELL VOLUME 87.5 fL (80.0-94.0)
[2017-07-18 14:06] LABS: INR 1.5; PROTHROMBIN TIME 16.7 SECONDS (9.7-12.2)
--- NOTE | 2017-07-18 14:19 | RAD ---
PROCEDURE: CHEST RADIOGRAPH, 1 VIEW HISTORY: Chest pain COMPARISON: 03/12/2017. FINDINGS: LUNGS: The lungs are well inflated. There is mild pulmonary venous congestion. PLEURA: No pneumothorax. There are layering pleural effusions. CARDIOVASCULAR: Again seen is severe cardiomegaly. There is stable position of left-sided pacemaker. OSSEOUS STRUCTURES: No significant abnormalities. VISUALIZED UPPER ABDOMEN: Normal. OTHER FINDINGS: None. IMPRESSION: Persistent severe cardiomegaly and layering pleural effusions.
[2017-07-18 14:20] LABS: ALB/GLOB RATIO 0.8 (1.0-2.1); ALBUMIN 3.7 g/dL (3.5-5.0); ALT/SGPT 8 U/L (21-72); AST/SGOT 31 U/L (17-59); BLOOD UREA NITROGEN 19 mg/dL (9-20); CALCIUM 8.4 mg/dl (8.6-10.4); GFR AFRICAN-AMERICAN > 60; GFR NON-AFRICAN AMERICAN > 60
[2017-07-18 14:26] LABS: B-TYPE NATRIURETIC PEPTIDE 3120 pg/mL (0-900)
--- NOTE | 2017-07-18 14:27 | C.PDOC ---
History Of Present Illness 67 y/o male presents to the ER complaining of palpitations and SOB which has become progressively worse over the past 2 days. Patient states that he has history of CHF. Patient denies having CP, nausea and vomiting. Time Seen by Provider: 07/18/17 12:37 Chief Complaint (Nursing): Palpitations History Per: Patient History/Exam Limitations: no limitations Onset/Duration Of Symptoms: Hrs Current Symptoms Are (Timing): Still Present Severity: Moderate Past Medical History Reviewed: Historical Data, Nursing Documentation, Vital Signs Vital Signs: Last Vital Signs Temp 98.1 F 07/18/17 15:39 Pulse 85 07/18/17 15:54 Resp 21 07/18/17 15:54 BP 145/77 07/18/17 15:54 Pulse Ox 96 07/18/17 16:48 - Medical History PMH: Arthritis, CHF, Diabetes, HTN, Hypercholesterolemia Denies: Chronic Kidney Disease Surgical History: Appendectomy, Pacemaker (pt states only defibrillator) - [facility] Procedures ASSISTANCE WITH RESPIRATORY VENTILATION, 24-96 HRS, CPAP (01/21/17) DRAINAGE OF LEFT PLEURAL CAVITY, PERCUTANEOUS APPROACH (02/02/17) DRAINAGE OF PERITONEAL CAVITY, PERCUTANEOUS APPROACH (03/05/17) DRAINAGE OF PERITONEAL CAVITY, PERCUTANEOUS APPROACH, DIAGN (04/26/16) DRAINAGE OF RIGHT PLEURAL CAVITY, PERCUTANEOUS APPROACH (03/05/17) EXCISION OF STOMACH, ENDO, DIAGN (11/03/16) FLUOROSCOPY OF SUP VENA CAVA USING L OSM CONTRAST, GUIDANCE (03/05/17) INSERTION OF INFUSION DEV INTO SUP VENA CAVA, PERC APPROACH (03/05/17) INSPECTION OF LOWER INTESTINAL TRACT, ENDO (11/03/16) TRANSFUSE NONAUT RED BLOOD CELLS IN PERIPH VEIN, PERC (01/21/17) ULTRASONOGRAPHY OF SUPERIOR VENA CAVA, GUIDANCE (03/05/17) Family History: States: No Known Family Hx - Social History Hx Tobacco Use: No Hx Alcohol Use: Yes Hx Substance Use: No - Immunization History Hx Tetanus Toxoid Vaccination: Yes Hx Influenza Vaccination: Yes Hx Pneumococcal Vaccination: No Review Of Systems Except As Marked, All Systems Reviewed And Found Negative. Constitutional: Negative for: Fever, Chills Cardiovascular: Positive for: Palpitations Respiratory: Positive for: Shortness of Breath Gastrointestinal: Negative for: Nausea, Vomiting Physical Exam - Physical Exam Appears: Non-toxic, No Acute Distress Skin: Normal Color, Warm, Dry, Other (anterior distal tibial ulcers, no purulent discharge) Head: Atraumatic, Normacephalic Eye(s): bilateral: Normal Inspection Nose: Normal Oral Mucosa: Moist Neck: Supple Chest: Symmetrical Cardiovascular: Rhythm Regular Respiratory: Decreased Breath Sounds (bilaterally at bases), No Rales, No Rhonchi, No Wheezing Gastrointestinal/Abdominal: Normal Exam, Bowel Sounds ((+) bowel sounds), Soft, No Tenderness, No Guarding, No Rebound Extremity: Normal ROM Neurological/Psych: Oriented x3, Normal Speech ED Course And Treatment - Laboratory Results Result Diagrams: 07/18/17 13:42 07/18/17 13:42 ECG: Interpreted By Me, Viewed By Me Interpretation Of ECG: Ventricular paced rhythm Rate From EC O2 Sat by Pulse Oximetry: 96 (RA) Pulse Ox Interpretation: Normal - Other Rad CXR X-Ray: Viewed By Me, Read By Radiologist Interpretation: PROCEDURE: CHEST RADIOGRAPH, 1 VIEW. HISTORY: Chest pain. COMPARISON: 03/12/2017. FINDINGS: LUNGS: The lungs are well inflated. There is mild pulmonary venous congestion. PLEURA: No pneumothorax. There are layering pleural effusions. CARDIOVASCULAR: Again seen is severe cardiomegaly. There is stable position of left-sided pacemaker. OSSEOUS STRUCTURES: No significant abnormalities. VISUALIZED UPPER ABDOMEN: Normal. OTHER FINDINGS: None. IMPRESSION: Persistent severe cardiomegaly and layering pleural effusions. Medical Decision Making Medical Decision Making: Assessment: Palpitations/ SOB Plan: --Labs --EKG --CXR --Lasix IV Updates: Case discussed with Dr. Saniya Mahajan, hospitalist. Patient has been admitted to Telemetry Observation under Lesia Mahajan' service. Disposition Discussed With : Abimael Mahajan Doctor Will See Patient In The: Hospital Counseled Patient/Family Regarding: Studies Performed, Diagnosis - Disposition Disposition: HOSPITALIZED Disposition Time: 16:26 Condition: FAIR - Clinical Impression Clinical Impression: CHF (congestive heart failure) - Scribe Statement The provider has reviewed the documentation as recorded by the Gopiibe Barb Tatum Provider Attestation: All medical record entries made by the Scribe were at my direction and personally dictated by me. I have reviewed the chart and agree that the record accurately reflects my personal performance of the history, physical exam, medical decision making, and the department course for this patient. I have also personally directed, reviewed, and agree with the discharge instructions and disposition.
--- NOTE | 2017-07-18 16:39 | CP.PCM.HP ---
<Natasha Beard - Last Filed: 07/18/17 20:29> History of Present Illness - History of Present Illness History of Present Illness: CC: SOB HPI: Patient is a 67 year old male with past medical history of defibrillator and pacemaker(2011), CHF, HTN, liver cirrhosis, pleural effusions, and possible DMII who presents today because Dr. Rouse recommended he come to the ED for his shortness of breath. Patient says the past 3 weeks he has become more short of breath. 2 weeks ago he developed a cough with white sputum. Patient says he can lay flat at night, but can only walk a few steps before becoming short of breath. Patient has been coughing so much that sometimes he becomes nauseous. Patient also believes he has gained about 20-25lbs unintentionally in the last 4 months and has noticed that his abdomen is getting much larger and distended. Patient admits to ulcers on his legs bilaterally that started 2 weeks ago and are draining fluid. Patient went to his PMD, Dr. Rock on Saturday who recommended he speak with the die storage worker Dr. Rouse. Patient was told by Dr. Lehman's staff that he should come to the ED on Saturday. Patient says he did not come until today because he was busy with "something very important." Patient denies any chest pain, palpitations, vomiting, constipation, or diarrhea. PMD: Jluis Rock APN PMH: Defibrillator and pacemaker(2011), CHF, HTN, liver cirrhosis, pleural effusions, DMII? 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 Does not smoke, No drugs Drinks 1 glass of wine 3 times per week hx of 12 beers per day for 30 years many years ago Medications: Furosemide 40mg PO QD, Entresto 24mg-26mg One tab daily, KCl 10meq daily Allergies: Denies Present on Admission - Present on Admission Any Indicators Present on Admission: No History of DVT/PE: No History of Uncontrolled Diabetes: No Urinary Catheter: No Decubitus Ulcer Present: No Review of Systems - Constitutional Constitutional: absent: Chills, Fever - EENT Eyes: absent: Blurred Vision - Cardiovascular Cardiovascular: Dyspnea, Dyspnea on Exertion, Leg Edema. absent: Chest Pain, Palpitations - Respiratory Respiratory: Cough, Excessive Mucous Production - Gastrointestinal Gastrointestinal: Nausea. absent: Constipation, Diarrhea, Vomiting Additional comments: abdominal discomfort - Genitourinary Genitourinary: absent: Change in Urinary Stream, Difficulty Urinating - Integumentary Integumentary: Skin Ulcer (b/l LE) Past Patient History - Infectious Disease Hx of Infectious Diseases: None - Past Medical History & Family History Past Medical History?: Yes - Past Social History Smoking Status: Never Smoked - CARDIAC Hx Congestive Heart Failure: Yes Hx Hypercholesterolemia: Yes Hx Hypertension: Yes Hx Pacemaker: Yes (pt states only defibrillator) - PULMONARY Hx Respiratory Disorders: No - NEUROLOGICAL Hx Neurological Disorder: No - HEENT Hx HEENT Problems: No - RENAL Hx Chronic Kidney Disease: No - ENDOCRINE/METABOLIC Hx Diabetes Mellitus Type 2: Yes - HEMATOLOGICAL/ONCOLOGICAL Hx Blood Disorders: No - INTEGUMENTARY Hx Dermatological Problems: No - MUSCULOSKELETAL/RHEUMATOLOGICAL Hx Arthritis: Yes - GASTROINTESTINAL Other/Comment: ascites - GENITOURINARY/GYNECOLOGICAL Hx Genitourinary Disorders: No - PSYCHIATRIC Hx Substance Use: No - SURGICAL HISTORY Hx Appendectomy: Yes - ANESTHESIA Hx Anesthesia: Yes Hx Anesthesia Reactions: No Meds Allergies/Adverse Reactions: Allergies Allergy/AdvReac Type Severity Reaction Status Date / Time No Known Allergies Allergy Verified 07/18/17 12:06 Physical Exam - Constitutional Appears: Non-toxic, No Acute Distress - Head Exam Head Exam: ATRAUMATIC, NORMAL INSPECTION, NORMOCEPHALIC - Eye Exam Eye Exam: EOMI, Normal appearance, PERRL - ENT Exam ENT Exam: Mucous Membranes Moist - Respiratory Exam Respiratory Exam: Rales, Rhonchi. absent: NORMAL BREATHING PATTERN - Cardiovascular Exam Cardiovascular Exam: REGULAR RHYTHM, RRR, +S1, +S2 - GI/Abdominal Exam GI & Abdominal Exam: Distended, Firm, Normal Bowel Sounds Additional comments: positive fluid wave - Extremities Exam Extremities exam: Positive for: pedal edema Additional comments: b/l LE wrapped in c/d/i dressing. Patient refused for dressings to be taken off - Back Exam Back exam: NORMAL INSPECTION. absent: rash noted - Neurological Exam Neurological exam: Alert, Oriented x3 - Psychiatric Exam Psychiatric exam: Normal Affect, Normal Mood - Skin Skin Exam: Intact, Normal Color, Warm Results - Vital Signs Recent Vital Signs: Last Vital Signs Temp 98.1 F 07/18/17 15:39 Pulse 85 07/18/17 15:54 Resp 21 07/18/17 15:54 BP 145/77 07/18/17 15:54 Pulse Ox 96 07/18/17 16:26 - Labs Result Diagrams: 07/18/17 13:42 07/18/17 13:42 Labs: Laboratory Results - last 24 hr 07/18/17 07/18/17 07/18/17 13:42 13:42 13:42 WBC 6.5 RBC 3.53 L Hgb 10.0 L Hct 30.9 L MCV 87.5 D MCH 28.2 MCHC 32.3 L RDW 16.6 H Plt Count 165 MPV 7.5 Neut % (Auto) 68.8 Lymph % (Auto) 12.5 L [place] % (Auto) 15.5 H Eos % (Auto) 2.4 Baso % (Auto) 0.8 Neut # (Auto) 4.5 Lymph # (Auto) 0.8 L [place] # (Auto) 1.0 H Eos # (Auto) 0.2 Baso # (Auto) 0.1 PT 16.7 H INR 1.5 APTT 36 H Sodium 144 Potassium 4.1 Chloride 105 Carbon Dioxide 24 Anion Gap 18 BUN 19 Creatinine 1.1 Est GFR ( Amer) > 60 Est GFR (Non-Af Amer) > 60 Random Glucose 133 H Calcium 8.4 L Total Bilirubin 1.1 AST 31 ALT 8 L D Alkaline Phosphatase 99 Troponin I 0.0350 NT-Pro-B Natriuret Pep 3120 H Total Protein 8.2 Albumin 3.7 Globulin 4.4 H Albumin/Globulin Ratio 0.8 L Assessment & Plan - Assessment and Plan (Free Text) Assessment: Acute on Chronic Systolic CHF 01/10/17 echo EF 30-35% repeat echo probnp: 3120 Trop I .0350, repeat x2 Lasix 40mg ivp q12h Aldactone 100mg po daily Kdur 10meq daily ASA 81mg po daily Entresto 24mg-26mg po daily monitor I+Os, daily weights Cardiology consulted, Dr. Rouse, help appreciated Pulm consulted, Dr. Lopez help appreciated Pleural Effusions Cxray: persistent severe cardiomegaly and layering pleural effusions f/u CT chest, abd, pelvis without contrast may need IR if pleural effusions large Liver Cirrhosis f/u CT chest, abd, pelvis may need paracentesis monitor liver enzymes LE wounds f/u wound culture wound care consulted, help appreciated HTN continue home med: Entresto f/u lipid playground monitor Possible DMII f/u HgA1C Prophylaxis SCDs contraindicated due to LE wounds no GI prophylaxis indicated <Alden Short - Last Filed: 07/19/17 07:37> Results - Vital Signs Recent Vital Signs: Last Vital Signs Temp 97.9 F 07/18/17 23:20 Pulse 76 07/18/17 23:20 Resp 20 07/18/17 23:20 BP 124/67 07/19/17 06:16 Pulse Ox 95 07/18/17 23:20 - Labs Result Diagrams: 07/18/17 13:42 07/18/17 13:42 Labs: Laboratory Results - last 24 hr 07/18/17 07/18/17 07/18/17 13:42 13:42 13:42 WBC 6.5 RBC 3.53 L Hgb 10.0 L Hct 30.9 L MCV 87.5 D MCH 28.2 MCHC 32.3 L RDW 16.6 H Plt Count 165 MPV 7.5 Neut % (Auto) 68.8 Lymph % (Auto) 12.5 L [place] % (Auto) 15.5 H Eos % (Auto) 2.4 Baso % (Auto) 0.8 Neut # (Auto) 4.5 Lymph # (Auto) 0.8 L [place] # (Auto) 1.0 H Eos # (Auto) 0.2 Baso # (Auto) 0.1 PT 16.7 H INR 1.5 APTT 36 H Sodium 144 Potassium 4.1 Chloride 105 Carbon Dioxide 24 Anion Gap 18 BUN 19 Creatinine 1.1 Est GFR ( Amer) > 60 Est GFR (Non-Af Amer) > 60 POC Glucose (mg/dL) Random Glucose 133 H Calcium 8.4 L Total Bilirubin 1.1 AST 31 ALT 8 L D Alkaline Phosphatase 99 Total Creatine Kinase CK-MB (Mass) Troponin I 0.0350 NT-Pro-B Natriuret Pep 3120 H Total Protein 8.2 Albumin 3.7 Globulin 4.4 H Albumin/Globulin Ratio 0.8 L 07/18/17 07/18/17 07/19/17 21:08 21:34 01:38 WBC RBC Hgb Hct MCV MCH MCHC RDW Plt Count MPV Neut % (Auto) Lymph % (Auto) [place] % (Auto) Eos % (Auto) Baso % (Auto) Neut # (Auto) Lymph # (Auto) [place] # (Auto) Eos # (Auto) Baso # (Auto) PT INR APTT Sodium Potassium Chloride Carbon Dioxide Anion Gap BUN Creatinine Est GFR ( Amer) Est GFR (Non-Af Amer) POC Glucose (mg/dL) 131 H Random Glucose Calcium Total Bilirubin AST ALT Alkaline Phosphatase Total Creatine Kinase 106 115 CK-MB (Mass) 1.43 1.63 Troponin I 0.0380 0.0610 NT-Pro-B Natriuret Pep Total Protein Albumin Globulin Albumin/Globulin Ratio Attending/Attestation - Attestation I have personally seen and examined this patient.: Yes I have fully participated in the care of the patient.: Yes I have reviewed all pertinent clinical information: Yes Notes (Text): 07/19/17 07:29 Medical attending: Patient was seen and examined by me, agree with the above note by the resident The patient was not in any acute distress when we came and examined and discussed with him in the ER bed #2 He has been progressively worseing shortness of breath as well as weight gain and abdominal girth growth. The CXRAY is suggesting a lot of fluid build - his previous time here he had both a thoracentesis as well as a paracentesis. We will get a CT of the Chest, Abd, pelvis. We explained to him he may need another thoracenteis. In the mean time will order lasix IV. Need to follow wts and I and Os The patient has a history of both CHF as well as cirrhosis of the liver - both of which are probably contributing to this fluid. I will have to later go back and see if it was transduative or exudative fluid from previous studies. For his CHF he is on BB as well as Entresto. With reguards to the DM, will use SSI coverage for the time being thank you Alden Short
--- NOTE | 2017-07-18 21:29 | CT ---
EXAM: CT Chest Without Intravenous Contrast CLINICAL HISTORY: 67 years old, male; Condition or disease; Liver condition; Cirrhosis; Lung condition and disease; Pleural effusion; Other: Infiltrate; Additional info: Pleural effusion, liver cirrhosis TECHNIQUE: Axial computed tomography images of the chest without intravenous contrast. All CT scans at this facility use one or more dose reduction techniques, viz.: automated exposure control; ma/kV adjustment per patient size (including targeted exams where dose is matched to indication; i.e. head); or iterative reconstruction technique. Coronal and sagittal reformatted images were created and reviewed. COMPARISON: Prior images are not available for review. FINDINGS: Lungs and pleural spaces: Trachea and main bronchi are patent. There is a moderate size right pleural effusion with compressive atelectasis. There is patchy airspace disease at the right base. There is no left effusion. There is minimal airspace disease at the left base. There is a 5 mm right middle lobe nodule. Heart and vasculature: The heart is enlarged. There is calcification at the mitral annulus. There is no pericardial effusion.Aorta and main pulmonary artery are normal in caliber. Mediastinum: The esophagus is unremarkable. There is a hiatal hernia. There are mildly prominent mediastinal nodes.Maryjo are not optimally evaluated without contrast material. Thyroid: Thyroid is only partially imaged. Bones/joints: There are degenerative changes in the spine and shoulders are. There is ankylosis of the right seventh costovertebral articulation Soft tissues: There is asymmetric gynecomastia left greater than right. Lymph nodes: There are shotty axillary nodes. Upper abdomen: Refer to following report for abdominal findings Tubes, lines and devices: There is streak artifact from a pacemaker in the left chest wall. There is streak artifact from pacemaker leads. IMPRESSION: Moderate right pleural effusion with atelectatic changes greatest at the right base; cardiomegaly with pacemaker/defibrillator; indeterminate 4.6 mm right middle lobe nodule For low-risk patients, no follow-up is necessary. For high-risk patients (smoking history or other known risk factors) an optional chest CT at 12 months could be performed. EXAM: CT Abdomen and Pelvis Without Intravenous Contrast EXAM DATE/TIME: 07/18/2017 6:59 PM CLINICAL HISTORY: 67 years old, male; Condition or disease; Liver condition; Cirrhosis; Lung condition and disease; Pleural effusion; Other: Infiltrate; Additional info: Pleural effusion, liver cirrhosis TECHNIQUE: Axial computed tomography images of the abdomen and pelvis without intravenous contrast. All CT scans at this facility use one or more dose reduction techniques, viz.: automated exposure control; ma/kV adjustment per patient size (including targeted exams where dose is matched to indication; i.e. head); or iterative reconstruction technique. Coronal and sagittal reformatted images were created and reviewed. COMPARISON: Prior images are not available for review. FINDINGS: Lower thorax: Refer to prior report for chest findings. ABDOMEN: Liver: Hepatic contours are nodular. Gallbladder and bile ducts: Gallbladder is incompletely distended. There is a small dependent stones.Common duct is unremarkable. Pancreas: Pancreas is mildly atrophic. There is peripancreatic edema greatest around the pancreatic head.; Spleen: Spleen is normal in size. Adrenals: Right adrenal is unremarkable. There is thickening of the left adrenal. Kidneys and ureters: unremarkable Stomach and bowel: Stomach is partially distended. Rotation is normal. There is no small bowel obstruction. Distal and terminal ileum are mildly distended with fluid. Appendix is not visualized. There is moderate stool in the colon. PELVIS: Appendix: See stomach and bowel Bladder: unremarkable Reproductive: Seminal vesicles and prostate are unremarkable. ABDOMEN and PELVIS: Intraperitoneal space: There is small amount of free fluid in the right upper quadrant. There is small amount of fluid in both colic gutters and in the pelvis. There is no free air. Bones/joints: unremarkable Soft tissues: There is body wall edema. There is a 2 x 6 x 4.2 cm complex collection in the anterior abdominal wall inferior to the umbilicus. There may be a small calcification centrally. There is mild peripheral enhancement. There is edema in the adjacent fat and skin thickening. Vasculature: There are vascular calcifications. Serpiginous structures in the pelvis are suggestive of varices. Lymph nodes: unremarkable IMPRESSION: Cirrhosis with normal sized spleen; mild peripancreatic edema suggest possible pancreatitis; small volume ascites; 2 x 6 x 4.2 cm abdominal wall collection with adjacent inflammatory change suggests possible abscess, similar findings described in prior report
[2017-07-18 21:42] LABS: CK-MB 1.43 ng/mL (0.0-3.38); TROPONIN I 0.038 ng/mL (0.00-0.120)
[2017-07-19 02:04] LABS: CK-MB 1.63 ng/mL (0.0-3.38); TROPONIN I 0.061 ng/mL (0.00-0.120)
[2017-07-19 07:40] LABS: BASO % 0.5 % (0.0-2.0); EOS # 0.2 K/uL (0.0-0.7); HEMOGLOBIN 10.3 g/dL (12.0-18.0); LYMPH % 16.7 % (20.0-40.0); MEAN CELL VOLUME 87.4 fL (80.0-94.0); MEAN CORPUSCULAR HEMOGLOBIN 28.8 pg (27.0-31.0); MEAN CORPUSCULAR HGB CONC 32.9 g/dL (33.0-37.0); MEAN PLATELET VOLUME 7.8 fL (7.2-11.7); MONO % 15.6 % (0.0-10.0); NEUT % 64.2 % (50.0-75.0); NRBC % 0.1 % (0.0-2.0); RBC 3.59 Mil/uL (4.40-5.90); RED CELL DISTRIBUTION WIDTH 16.1 % (11.5-14.5); WHITE BLOOD COUNT 6.2 K/uL (4.8-10.8)
[2017-07-19 08:08] LABS: ALB/GLOB RATIO 0.9 (1.0-2.1); ALT/SGPT 8 U/L (21-72); AST/SGOT 31 U/L (17-59); BLOOD UREA NITROGEN 19 mg/dL (9-20); CALCIUM 8.9 mg/dl (8.6-10.4); GFR AFRICAN-AMERICAN > 60; GFR NON-AFRICAN AMERICAN > 60; HDL CHOLESTEROL 30 mg/dL (30-70)
--- NOTE | 2017-07-19 08:20 | CP.PCM.CON ---
History of Present Illness - History of Present Illness History of Present Illness: patient seen/examined. consult to follow. hisotry of dialted cardiomyopathy s/p AICD ([place]) admitted iw progressive dsypnea orhtopnea and plapitiatons. Sai acute on chronic systolic dysfunction. Recommend diuresis. will interrogate AICD Past Patient History - Infectious Disease Hx of Infectious Diseases: None - Past Medical History & Family History Past Medical History?: Yes - Past Social History Smoking Status: Never Smoked - CARDIAC Hx Congestive Heart Failure: Yes Hx Hypercholesterolemia: Yes Hx Hypertension: Yes Hx Pacemaker: Yes (pt states only defibrillator) - PULMONARY Hx Respiratory Disorders: No - NEUROLOGICAL Hx Neurological Disorder: No - HEENT Hx HEENT Problems: No - RENAL Hx Chronic Kidney Disease: No - ENDOCRINE/METABOLIC Hx Diabetes Mellitus Type 2: Yes - HEMATOLOGICAL/ONCOLOGICAL Hx Blood Disorders: No - INTEGUMENTARY Hx Dermatological Problems: No - MUSCULOSKELETAL/RHEUMATOLOGICAL Hx Arthritis: Yes Hx Falls: Yes (3 years ago) - GASTROINTESTINAL Other/Comment: ascites - GENITOURINARY/GYNECOLOGICAL Hx Genitourinary Disorders: No - PSYCHIATRIC Hx Substance Use: No - SURGICAL HISTORY Hx Appendectomy: Yes - ANESTHESIA Hx Anesthesia: Yes Hx Anesthesia Reactions: No Meds Allergies/Adverse Reactions: Allergies Allergy/AdvReac Type Severity Reaction Status Date / Time No Known Allergies Allergy Verified 07/18/17 12:06 - Medications Medications: Current Medications Aspirin (Aspirin Chewable) 81 mg PO DAILY [facility] Furosemide (Lasix) 40 mg IVP Q12H [facility] Last Admin: 07/19/17 06:16 Dose: 40 mg Potassium Chloride (Klor-Con 10) 10 meq PO BRK [facility] Sacubitril/Valsartan (Entresto 24 Mg-26 Mg) 1 tab PO BID [facility] Spironolactone (Aldactone) 100 mg PO DAILY [facility] Results - Vital Signs Recent Vital Signs: Last Vital Signs Temp 97.8 F 07/19/17 07:30 Pulse 79 07/19/17 07:30 Resp 20 07/19/17 07:30 BP 146/80 07/19/17 07:30 Pulse Ox 94 L 07/19/17 07:30 - Labs Result Diagrams: 07/19/17 07:25 07/19/17 07:25 Labs: Laboratory Results - last 24 hr 07/18/17 07/18/17 07/18/17 13:42 13:42 13:42 WBC 6.5 RBC 3.53 L Hgb 10.0 L Hct 30.9 L MCV 87.5 D MCH 28.2 MCHC 32.3 L RDW 16.6 H Plt Count 165 MPV 7.5 Neut % (Auto) 68.8 Lymph % (Auto) 12.5 L [place] % (Auto) 15.5 H Eos % (Auto) 2.4 Baso % (Auto) 0.8 Neut # (Auto) 4.5 Lymph # (Auto) 0.8 L [place] # (Auto) 1.0 H Eos # (Auto) 0.2 Baso # (Auto) 0.1 PT 16.7 H INR 1.5 APTT 36 H Sodium 144 Potassium 4.1 Chloride 105 Carbon Dioxide 24 Anion Gap 18 BUN 19 Creatinine 1.1 Est GFR ( Amer) > 60 Est GFR (Non-Af Amer) > 60 POC Glucose (mg/dL) Random Glucose 133 H Calcium 8.4 L Phosphorus Magnesium Total Bilirubin 1.1 AST 31 ALT 8 L D Alkaline Phosphatase 99 Total Creatine Kinase CK-MB (Mass) Troponin I 0.0350 NT-Pro-B Natriuret Pep 3120 H Total Protein 8.2 Albumin 3.7 Globulin 4.4 H Albumin/Globulin Ratio 0.8 L Triglycerides Cholesterol HDL Cholesterol 07/18/17 07/18/17 07/19/17 21:08 21:34 01:38 WBC RBC Hgb Hct MCV MCH MCHC RDW Plt Count MPV Neut % (Auto) Lymph % (Auto) [place] % (Auto) Eos % (Auto) Baso % (Auto) Neut # (Auto) Lymph # (Auto) [place] # (Auto) Eos # (Auto) Baso # (Auto) PT INR APTT Sodium Potassium Chloride Carbon Dioxide Anion Gap BUN Creatinine Est GFR ( Amer) Est GFR (Non-Af Amer) POC Glucose (mg/dL) 131 H Random Glucose Calcium Phosphorus Magnesium Total Bilirubin AST ALT Alkaline Phosphatase Total Creatine Kinase 106 115 CK-MB (Mass) 1.43 1.63 Troponin I 0.0380 0.0610 NT-Pro-B Natriuret Pep Total Protein Albumin Globulin Albumin/Globulin Ratio Triglycerides Cholesterol HDL Cholesterol 07/19/17 07/19/17 07:25 07:25 WBC 6.2 RBC 3.59 L Hgb 10.3 L Hct 31.4 L MCV 87.4 MCH 28.8 MCHC 32.9 L RDW 16.1 H Plt Count 174 MPV 7.8 Neut % (Auto) 64.2 Lymph % (Auto) 16.7 L [place] % (Auto) 15.6 H Eos % (Auto) 3.0 Baso % (Auto) 0.5 Neut # (Auto) 4.0 Lymph # (Auto) 1.0 [place] # (Auto) 1.0 H Eos # (Auto) 0.2 Baso # (Auto) 0.0 PT INR APTT Sodium 144 Potassium 4.1 Chloride 102 Carbon Dioxide 28 Anion Gap 18 BUN 19 Creatinine 1.2 Est GFR ( Amer) > 60 Est GFR (Non-Af Amer) > 60 POC Glucose (mg/dL) Random Glucose 101 Calcium 8.9 Phosphorus 3.7 Magnesium 1.6 Total Bilirubin 1.2 AST 31 ALT 8 L Alkaline Phosphatase 103 Total Creatine Kinase CK-MB (Mass) Troponin I NT-Pro-B Natriuret Pep Total Protein 8.5 H Albumin 4.0 Globulin 4.5 H Albumin/Globulin Ratio 0.9 L Triglycerides 55 D Cholesterol 108 HDL Cholesterol 30
--- NOTE | 2017-07-19 08:20 | CP.PCM.CON ---
Past Patient History - Infectious Disease Hx of Infectious Diseases: None - Past Medical History & Family History Past Medical History?: Yes - Past Social History Smoking Status: Never Smoked - CARDIAC Hx Congestive Heart Failure: Yes Hx Hypercholesterolemia: Yes Hx Hypertension: Yes Hx Pacemaker: Yes (pt states only defibrillator) - PULMONARY Hx Respiratory Disorders: No - NEUROLOGICAL Hx Neurological Disorder: No - HEENT Hx HEENT Problems: No - RENAL Hx Chronic Kidney Disease: No - ENDOCRINE/METABOLIC Hx Diabetes Mellitus Type 2: Yes - HEMATOLOGICAL/ONCOLOGICAL Hx Blood Disorders: No - INTEGUMENTARY Hx Dermatological Problems: No - MUSCULOSKELETAL/RHEUMATOLOGICAL Hx Arthritis: Yes Hx Falls: Yes (3 years ago) - GASTROINTESTINAL Other/Comment: ascites - GENITOURINARY/GYNECOLOGICAL Hx Genitourinary Disorders: No - PSYCHIATRIC Hx Substance Use: No - SURGICAL HISTORY Hx Appendectomy: Yes - ANESTHESIA Hx Anesthesia: Yes Hx Anesthesia Reactions: No Meds Allergies/Adverse Reactions: Allergies Allergy/AdvReac Type Severity Reaction Status Date / Time No Known Allergies Allergy Verified 07/18/17 12:06 - Medications Medications: Current Medications Aspirin (Aspirin Chewable) 81 mg PO DAILY [facility] Furosemide (Lasix) 40 mg IVP Q12H [facility] Last Admin: 07/19/17 06:16 Dose: 40 mg Potassium Chloride (Klor-Con 10) 10 meq PO BRK [facility] Sacubitril/Valsartan (Entresto 24 Mg-26 Mg) 1 tab PO BID [facility] Spironolactone (Aldactone) 100 mg PO DAILY [facility] Results - Vital Signs Recent Vital Signs: Last Vital Signs Temp 97.8 F 07/19/17 07:30 Pulse 79 07/19/17 07:30 Resp 20 07/19/17 07:30 BP 146/80 07/19/17 07:30 Pulse Ox 94 L 07/19/17 07:30 - Labs Result Diagrams: 07/19/17 07:25 07/19/17 07:25 Labs: Laboratory Results - last 24 hr 07/18/17 07/18/17 07/18/17 13:42 13:42 13:42 WBC 6.5 RBC 3.53 L Hgb 10.0 L Hct 30.9 L MCV 87.5 D MCH 28.2 MCHC 32.3 L RDW 16.6 H Plt Count 165 MPV 7.5 Neut % (Auto) 68.8 Lymph % (Auto) 12.5 L [place] % (Auto) 15.5 H Eos % (Auto) 2.4 Baso % (Auto) 0.8 Neut # (Auto) 4.5 Lymph # (Auto) 0.8 L [place] # (Auto) 1.0 H Eos # (Auto) 0.2 Baso # (Auto) 0.1 PT 16.7 H INR 1.5 APTT 36 H Sodium 144 Potassium 4.1 Chloride 105 Carbon Dioxide 24 Anion Gap 18 BUN 19 Creatinine 1.1 Est GFR ( Amer) > 60 Est GFR (Non-Af Amer) > 60 POC Glucose (mg/dL) Random Glucose 133 H Calcium 8.4 L Phosphorus Magnesium Total Bilirubin 1.1 AST 31 ALT 8 L D Alkaline Phosphatase 99 Total Creatine Kinase CK-MB (Mass) Troponin I 0.0350 NT-Pro-B Natriuret Pep 3120 H Total Protein 8.2 Albumin 3.7 Globulin 4.4 H Albumin/Globulin Ratio 0.8 L Triglycerides Cholesterol HDL Cholesterol 07/18/17 07/18/17 07/19/17 21:08 21:34 01:38 WBC RBC Hgb Hct MCV MCH MCHC RDW Plt Count MPV Neut % (Auto) Lymph % (Auto) [place] % (Auto) Eos % (Auto) Baso % (Auto) Neut # (Auto) Lymph # (Auto) [place] # (Auto) Eos # (Auto) Baso # (Auto) PT INR APTT Sodium Potassium Chloride Carbon Dioxide Anion Gap BUN Creatinine Est GFR ( Amer) Est GFR (Non-Af Amer) POC Glucose (mg/dL) 131 H Random Glucose Calcium Phosphorus Magnesium Total Bilirubin AST ALT Alkaline Phosphatase Total Creatine Kinase 106 115 CK-MB (Mass) 1.43 1.63 Troponin I 0.0380 0.0610 NT-Pro-B Natriuret Pep Total Protein Albumin Globulin Albumin/Globulin Ratio Triglycerides Cholesterol HDL Cholesterol 07/19/17 07/19/17 07:25 07:25 WBC 6.2 RBC 3.59 L Hgb 10.3 L Hct 31.4 L MCV 87.4 MCH 28.8 MCHC 32.9 L RDW 16.1 H Plt Count 174 MPV 7.8 Neut % (Auto) 64.2 Lymph % (Auto) 16.7 L [place] % (Auto) 15.6 H Eos % (Auto) 3.0 Baso % (Auto) 0.5 Neut # (Auto) 4.0 Lymph # (Auto) 1.0 [place] # (Auto) 1.0 H Eos # (Auto) 0.2 Baso # (Auto) 0.0 PT INR APTT Sodium 144 Potassium 4.1 Chloride 102 Carbon Dioxide 28 Anion Gap 18 BUN 19 Creatinine 1.2 Est GFR ( Amer) > 60 Est GFR (Non-Af Amer) > 60 POC Glucose (mg/dL) Random Glucose 101 Calcium 8.9 Phosphorus 3.7 Magnesium 1.6 Total Bilirubin 1.2 AST 31 ALT 8 L Alkaline Phosphatase 103 Total Creatine Kinase CK-MB (Mass) Troponin I NT-Pro-B Natriuret Pep Total Protein 8.5 H Albumin 4.0 Globulin 4.5 H Albumin/Globulin Ratio 0.9 L Triglycerides 55 D Cholesterol 108 HDL Cholesterol 30
[2017-07-19 08:22] LABS: LDL CHOLESTEROL 51 mg/dL (0-129)
[2017-07-19] MEDS: Potassium Chloride 10 mEq ER Tab PO SCH (08:42)
[2017-07-19] MEDS: Sacubitril/Valsartan 24-26mg Tab PO SCH ×2 (09:16→18:28)
[2017-07-19] MEDS: Enoxaparin 40 mg Syringe SC SCH (09:17)
[2017-07-19 10:00] LABS: LIPASE 110 U/L (23-300)
--- NOTE | 2017-07-19 12:28 | CP.PCM.CON ---
History of Present Illness - History of Present Illness History of Present Illness: Reason for consult: Shortness of breath, CHF HPI: 67M known to the rewriter with PMHx of CHF, pacemaker, cirrhosis, HTN, recurrent pleural effusions presented to the ED yesterday after being advised to do so by Dr. Rouse a day prior for evaluation of 3 weeks of shortness of breath, and 2 weeks of cough with white sputum. Today, the patient was seen and examined on the med/surg floors resting comfortably seated on the bed. He reported no complaints but did sound congested on auscultation. PMHx: CHF, cirrhosis, HTN, diabetes? 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, denies smoking, drinks a glas of wine 3x week, past heavy alcohol use Review of Systems - Review of Systems All systems: reviewed and no additional remarkable complaints except (shortness of breath) Past Patient History - Infectious Disease Hx of Infectious Diseases: None - Past Medical History & Family History Past Medical History?: Yes - Past Social History Smoking Status: Never Smoked - CARDIAC Hx Congestive Heart Failure: Yes Hx Hypercholesterolemia: Yes Hx Hypertension: Yes Hx Pacemaker: Yes (pt states only defibrillator) - PULMONARY Hx Respiratory Disorders: No - NEUROLOGICAL Hx Neurological Disorder: No - HEENT Hx HEENT Problems: No - RENAL Hx Chronic Kidney Disease: No - ENDOCRINE/METABOLIC Hx Diabetes Mellitus Type 2: Yes - HEMATOLOGICAL/ONCOLOGICAL Hx Blood Disorders: No - INTEGUMENTARY Hx Dermatological Problems: No - MUSCULOSKELETAL/RHEUMATOLOGICAL Hx Arthritis: Yes Hx Falls: Yes (3 years ago) - GASTROINTESTINAL Other/Comment: ascites - GENITOURINARY/GYNECOLOGICAL Hx Genitourinary Disorders: No - PSYCHIATRIC Hx Substance Use: No - SURGICAL HISTORY Hx Appendectomy: Yes - ANESTHESIA Hx Anesthesia: Yes Hx Anesthesia Reactions: No Meds Allergies/Adverse Reactions: Allergies Allergy/AdvReac Type Severity Reaction Status Date / Time No Known Allergies Allergy Verified 07/18/17 12:06 - Medications Medications: Current Medications Aspirin (Aspirin Chewable) 81 mg PO DAILY [facility] Last Admin: 07/19/17 09:17 Dose: 81 mg Enoxaparin Sodium (Lovenox) 40 mg SC DAILY [facility] Last Admin: 07/19/17 09:17 Dose: 40 mg Furosemide (Lasix) 40 mg IVP Q12H [facility] Last Admin: 07/19/17 06:16 Dose: 40 mg Potassium Chloride (Klor-Con 10) 10 meq PO BRK [facility] Last Admin: 07/19/17 08:42 Dose: 10 meq Sacubitril/Valsartan (Entresto 24 Mg-26 Mg) 1 tab PO BID [facility] Last Admin: 07/19/17 09:16 Dose: 1 tab Spironolactone (Aldactone) 100 mg PO DAILY [facility] Last Admin: 07/19/17 09:17 Dose: 100 mg Physical Exam - Head Exam Head Exam: ATRAUMATIC, NORMOCEPHALIC - Eye Exam Eye Exam: Normal appearance - ENT Exam ENT Exam: Mucous Membranes Moist - Respiratory Exam Respiratory Exam: Decreased Breath Sounds - Cardiovascular Exam Cardiovascular Exam: REGULAR RHYTHM - GI/Abdominal Exam GI & Abdominal Exam: Normal Bowel Sounds Results - Vital Signs Recent Vital Signs: Last Vital Signs Temp 97.8 F 07/19/17 07:30 Pulse 79 07/19/17 07:30 Resp 20 07/19/17 07:30 BP 146/80 07/19/17 07:30 Pulse Ox 94 L 07/19/17 07:30 - Labs Result Diagrams: 07/19/17 07:25 07/19/17 07:25 Labs: Laboratory Results - last 24 hr 07/18/17 07/18/17 07/18/17 13:42 13:42 13:42 WBC 6.5 RBC 3.53 L Hgb 10.0 L Hct 30.9 L MCV 87.5 D MCH 28.2 MCHC 32.3 L RDW 16.6 H Plt Count 165 MPV 7.5 Neut % (Auto) 68.8 Lymph % (Auto) 12.5 L [place] % (Auto) 15.5 H Eos % (Auto) 2.4 Baso % (Auto) 0.8 Neut # (Auto) 4.5 Lymph # (Auto) 0.8 L [place] # (Auto) 1.0 H Eos # (Auto) 0.2 Baso # (Auto) 0.1 PT 16.7 H INR 1.5 APTT 36 H Sodium 144 Potassium 4.1 Chloride 105 Carbon Dioxide 24 Anion Gap 18 BUN 19 Creatinine 1.1 Est GFR ( Amer) > 60 Est GFR (Non-Af Amer) > 60 POC Glucose (mg/dL) Random Glucose 133 H Hemoglobin A1c Calcium 8.4 L Phosphorus Magnesium Total Bilirubin 1.1 AST 31 ALT 8 L D Alkaline Phosphatase 99 Total Creatine Kinase CK-MB (Mass) Troponin I 0.0350 NT-Pro-B Natriuret Pep 3120 H Total Protein 8.2 Albumin 3.7 Globulin 4.4 H Albumin/Globulin Ratio 0.8 L Triglycerides Cholesterol LDL Cholesterol Direct HDL Cholesterol Lipase 07/18/17 07/18/17 07/19/17 21:08 21:34 01:38 WBC RBC Hgb Hct MCV MCH MCHC RDW Plt Count MPV Neut % (Auto) Lymph % (Auto) [place] % (Auto) Eos % (Auto) Baso % (Auto) Neut # (Auto) Lymph # (Auto) [place] # (Auto) Eos # (Auto) Baso # (Auto) PT INR APTT Sodium Potassium Chloride Carbon Dioxide Anion Gap BUN Creatinine Est GFR ( Amer) Est GFR (Non-Af Amer) POC Glucose (mg/dL) 131 H Random Glucose Hemoglobin A1c Calcium Phosphorus Magnesium Total Bilirubin AST ALT Alkaline Phosphatase Total Creatine Kinase 106 115 CK-MB (Mass) 1.43 1.63 Troponin I 0.0380 0.0610 NT-Pro-B Natriuret Pep Total Protein Albumin Globulin Albumin/Globulin Ratio Triglycerides Cholesterol LDL Cholesterol Direct HDL Cholesterol Lipase 07/19/17 07/19/17 07/19/17 07:25 07:25 07:25 WBC 6.2 RBC 3.59 L Hgb 10.3 L Hct 31.4 L MCV 87.4 MCH 28.8 MCHC 32.9 L RDW 16.1 H Plt Count 174 MPV 7.8 Neut % (Auto) 64.2 Lymph % (Auto) 16.7 L [place] % (Auto) 15.6 H Eos % (Auto) 3.0 Baso % (Auto) 0.5 Neut # (Auto) 4.0 Lymph # (Auto) 1.0 [place] # (Auto) 1.0 H Eos # (Auto) 0.2 Baso # (Auto) 0.0 PT INR APTT Sodium 144 Potassium 4.1 Chloride 102 Carbon Dioxide 28 Anion Gap 18 BUN 19 Creatinine 1.2 Est GFR ( Amer) > 60 Est GFR (Non-Af Amer) > 60 POC Glucose (mg/dL) Random Glucose 101 Hemoglobin A1c 6.1 Calcium 8.9 Phosphorus 3.7 Magnesium 1.6 Total Bilirubin 1.2 AST 31 ALT 8 L Alkaline Phosphatase 103 Total Creatine Kinase CK-MB (Mass) Troponin I NT-Pro-B Natriuret Pep Total Protein 8.5 H Albumin 4.0 Globulin 4.5 H Albumin/Globulin Ratio 0.9 L Triglycerides 55 D Cholesterol 108 LDL Cholesterol Direct 51 HDL Cholesterol 30 Lipase 110 Assessment & Plan - Assessment and Plan (Free Text) Assessment: Assessment and Plan: 1. Pleural effusion - CT Chest/Abd/Pel 07/18: small to moderate right pleural effusion - consider IR consult for thoracentesis 2. CHF - Dr. Rouse on-board - c/w lasix - spironolactone - c/w entresto
--- NOTE | 2017-07-19 12:41 | CARD ---
APPROVED REPORT EXAM: Two-dimensional and M-mode echocardiogram with Doppler and color Doppler. Other Information Quality : GoodRhythm : INDICATION Dizziness and Vertigo Congestive Heart Failure ANEMIA,CIRRHOSIS Surgery/Intervention ICD/Pacemaker: RISK FACTORS Obesity Diabetes 2D DIMENSIONS IVSd1.6 (0.7-1.1cm)LVDd4.9 (3.9-5.9cm) PWd1.4 (0.7-1.1cm)LVDs4.7 (2.5-4.0cm) FS (%) 4.2 % M-Mode DIMENSIONS RVDd4.37 (2.1-3.2cm)Left Atrium (MM)5.38 (2.5-4.0cm) IVSd1.37 (0.7-1.1cm)Aortic Root3.10 (2.2-3.7cm) LVDd5.27 (4.0-5.6cm)Aortic Cusp Exc.1.62 (1.5-2.0cm) PWd1.05 (0.7-1.1cm)FS (%) 11 % LVDs4.69 (2.0-3.8cm) Mitral Valve MV E Ftoulaps116.3cm/sE/A ratio0.0 TDI E/Lateral E'0.0E/Medial E'0.0 Tricuspid Valve TR Peak [id number] Peak [id number] LEFT VENTRICLE The Left Ventricle is moderately dilated. There is moderate concentric left ventricular hypertrophy. Left ventricle systolic function is severely impaired. The Ejection Fraction is - 10 -20% There is a flattened septum consistent with right ventricle volume and pressure overload. Severe diastolic dysfunction - Transmitral Doppler flow pattern is Grade III - Elevated left atrial pressure. RIGHT VENTRICLE The right ventricle is moderately to severely dilated. The right ventricle is mildly hypertrophied. Systolic function is severely reduced. There is a pacemaker lead in the right ventricle. ATRIA The left atrium is severely dilated. The right atrium is severely dilated. AORTIC VALVE The aortic valve is normal in structure. No aortic regurgitation is present. MITRAL VALVE The mitral valve leaflets are normal. Mitral annular calcification is mild. Mitral regurgitation is mild to moderate. TRICUSPID VALVE The tricuspid valve is normal in structure. There is moderate tricuspid regurgitation. Right ventricular systolic pressure is estimated at greater than 60 mmHg. There is severe pulmonary hypertension. PULMONIC VALVE The pulmonary valve is normal in structure. There is trace to mild pulmonic valvular regurgitation. GREAT VESSELS The aortic root is normal in size. Dilated IVC with poor inspiration collapse is consistent with elevated right atrial pressure. PERICARDIAL EFFUSION There is a trace pericardial effusion. <Conclusion> Moderate to severe dilatation of all cardiac chambers There is moderate concentric left ventricular hypertrophy with severe global hypokinesis . Left ventricle systolic function is severely impaired. The Ejection Fraction is - 10 -20% Severe diastolic dysfunction - Transmitral Doppler flow pattern is Grade III Moderate to severe right ventricular dysfunction. There is moderate to severe tricuspid regurgitation. Right ventricular systolic pressure is estimated at greater than - 70 mmHg compatible with severe pulmonary hypertension. Mitral regurgitation is mild to moderate. There is a trace pericardial effusion.
--- NOTE | 2017-07-19 14:37 | CP.PCM.PN ---
<Natasha Beard - Last Filed: 07/19/17 14:32> Subjective - Date & Time of Evaluation Date of Evaluation: 07/19/17 Time of Evaluation: 07:00 - Subjective Subjective: PGY1- Medicine note Patient seen and examined at bedside and in no acute distress. Patient says his shortness of breath is much better today, but he can still not ambulate much without becoming short of breath. Patient denies any chest pain, abdominal pain , nausea, vomiting, constipation, or diarrhea. Objective - Vital Signs/Intake and Output Vital Signs (last 24 hours): Temp Pulse Resp BP Pulse Ox 97.8 F 79 20 146/80 94 L 07/19/17 07:30 07/19/17 07:30 07/19/17 07:30 07/19/17 07:30 07/19/17 07:30 - Medications Medications: Current Medications Aspirin (Aspirin Chewable) 81 mg PO DAILY [facility] Last Admin: 07/19/17 09:17 Dose: 81 mg Enoxaparin Sodium (Lovenox) 40 mg SC DAILY [facility] Last Admin: 07/19/17 09:17 Dose: 40 mg Furosemide (Lasix) 40 mg IVP Q12H [facility] Last Admin: 07/19/17 06:16 Dose: 40 mg Potassium Chloride (Klor-Con 10) 10 meq PO BRK [facility] Last Admin: 07/19/17 08:42 Dose: 10 meq Sacubitril/Valsartan (Entresto 24 Mg-26 Mg) 1 tab PO BID [facility] Last Admin: 07/19/17 09:16 Dose: 1 tab Spironolactone (Aldactone) 100 mg PO DAILY [facility] Last Admin: 07/19/17 09:17 Dose: 100 mg - Labs Labs: 07/19/17 07:25 07/19/17 07:25 PT 16.7 SECONDS (9.7-12.2) H 07/18/17 13:42 INR 1.5 07/18/17 13:42 APTT 36 SECONDS (21-34) H 07/18/17 13:42 - Additional Findings Additional findings: - Constitutional Appears: Non-toxic, No Acute Distress - Head Exam Head Exam: ATRAUMATIC, NORMAL INSPECTION, NORMOCEPHALIC - Eye Exam Eye Exam: EOMI, Normal appearance, PERRL - ENT Exam ENT Exam: Mucous Membranes Moist - Respiratory Exam Respiratory Exam: Rales, Rhonchi. absent: NORMAL BREATHING PATTERN - Cardiovascular Exam Cardiovascular Exam: REGULAR RHYTHM, RRR, +S1, +S2 - GI/Abdominal Exam GI & Abdominal Exam: Distended, Firm, Normal Bowel Sounds Additional comments: positive fluid wave - Extremities Exam Extremities exam: Positive for: pedal edema Additional comments: b/l LE wrapped in c/d/i dressing. Patient refused for dressings to be taken off - Back Exam Back exam: NORMAL INSPECTION. absent: rash noted - Neurological Exam Neurological exam: Alert, Oriented x3 - Psychiatric Exam Psychiatric exam: Normal Affect, Normal Mood - Skin Skin Exam: Intact, Normal Color, Warm Assessment and Plan - Assessment and Plan (Free Text) Assessment: Acute on Chronic Systolic CHF 01/10/17 echo EF 30-35% repeat echo 07/18/17: moderate to severe dilatation of all cardiac chambers. Ejection fraction 10-20%, severe diastolic dysfunction grade II, moderate to severe tricuspid regurg, trace pericardial effusion probnp: 3120 Trop I .0350, repeat x2 Lasix 40mg ivp q12h Aldactone 100mg po daily Kdur 10meq daily ASA 81mg po daily Entresto 24mg-26mg po daily monitor I+Os, daily weights Cardiology consulted, Dr. Rouse, help appreciated Pulm consulted, Dr. Lopez help appreciated AICD to be interrogated Pleural Effusions Cxray: persistent severe cardiomegaly and layering pleural effusions CT chest, abd, pelvis without contrast: moderate pleural effusion at the right base, cardiomegaly, indeterminate 4.6mm right middle lobe nodule Liver Cirrhosis CT chest, abd, pelvis: cirrhosis with normal sized spleen, mild peripancreatic edema suggest possible pancreatitis; small volume ascites; 2 x 6x 4.2 cm abdominal wall collection with adjacent inflammatory change suggests possible abscess, similar findings described in prior report monitor liver enzymes LE wounds f/u wound culture wound care consulted, help appreciated -dressing changed, medihoney applied HTN continue home med: Entresto lipid panel: Triglycerides 55, Cholesterol 108, LDL 51, HDL 30 monitor IGT HgA1C: 6.1 Prophylaxis SCDs contraindicated due to LE wounds no GI prophylaxis indicated low carb 2g Na diet <Alden Short - Last Filed: 07/19/17 15:03> Objective - Vital Signs/Intake and Output Vital Signs (last 24 hours): Temp Pulse Resp BP Pulse Ox 97.8 F 79 20 146/80 94 L 07/19/17 07:30 07/19/17 07:30 07/19/17 07:30 07/19/17 07:30 07/19/17 07:30 - Medications Medications: Current Medications Aspirin (Aspirin Chewable) 81 mg PO DAILY [facility] Last Admin: 07/19/17 09:17 Dose: 81 mg Enoxaparin Sodium (Lovenox) 40 mg SC DAILY [facility] Last Admin: 07/19/17 09:17 Dose: 40 mg Furosemide (Lasix) 40 mg IVP Q12H [facility] Last Admin: 07/19/17 06:16 Dose: 40 mg Potassium Chloride (Klor-Con 10) 10 meq PO BRK [facility] Last Admin: 07/19/17 08:42 Dose: 10 meq Sacubitril/Valsartan (Entresto 24 Mg-26 Mg) 1 tab PO BID [facility] Last Admin: 07/19/17 09:16 Dose: 1 tab Spironolactone (Aldactone) 100 mg PO DAILY [facility] Last Admin: 07/19/17 09:17 Dose: 100 mg - Labs Labs: 07/19/17 07:25 07/19/17 07:25 PT 16.7 SECONDS (9.7-12.2) H 07/18/17 13:42 INR 1.5 07/18/17 13:42 APTT 36 SECONDS (21-34) H 07/18/17 13:42 Attending/Attestation - Attestation I have personally seen and examined this patient.: Yes I have fully participated in the care of the patient.: Yes I have reviewed all pertinent clinical information, including history, physical exam and plan: Yes Notes (Text): 07/19/17 15:03 Medical attending: Patient was seen and examined by me, agrees the above note by director of medical review. We saw the patient together Overnight the patient underwent a CAT scan of the chest abdomen and pelvis. It showed that he does have a pleural effusion however it's not as severe as previous pleural effusions that he's had. I don't think that he'll need a thoracentesis, nevertheless we are going to give Lasix IV twice a day. He tells us that since yesterday he's felt somewhat better. It's easier for him to walk now without becoming actively short of breath. The CAT scan doesn't show a large amount of ascites, i.e. yesterday when I saw him I was worried that he might need a paracentesis however after looking through the CAT scan I don't think this will be necessary we will again try him on IV Lasix and see how he does We're also having wound care come to evaluate the lower extremity wounds. He's had many hernia as well as dressing changes. thank you Alden Short
--- NOTE | 2017-07-19 23:05 | CARD ---
APPROVED REPORT EKG Measurement Heart [id number] <Conclusion> Ventricular-paced rhythm Abnormal ECG
--- NOTE | 2017-07-19 23:06 | CARD ---
APPROVED REPORT EKG Measurement Heart [id number] <Conclusion> Poor data quality, interpretation may be adversely affected Ventricular-paced rhythm Abnormal ECG
[2017-07-20] MEDS ORDERED: guaiFENesin-Codeine 100-10mg/5ml Syrup (10ml) UD PO ONE ×2 (06:02→23:38)
[2017-07-20 08:18] LABS: BASO % 0.5 % (0.0-2.0); EOS # 0.2 K/uL (0.0-0.7); EOS % 2.9 % (0.0-4.0); HEMOGLOBIN 11.5 g/dL (12.0-18.0); LYMPH # 1.1 K/uL (1.0-4.3); LYMPH % 14.9 % (20.0-40.0); MEAN CELL VOLUME 87.2 fL (80.0-94.0); MEAN CORPUSCULAR HEMOGLOBIN 28.4 pg (27.0-31.0); MEAN CORPUSCULAR HGB CONC 32.6 g/dL (33.0-37.0); MEAN PLATELET VOLUME 7.8 fL (7.2-11.7); MONO # 1.2 K/uL (0.0-0.8); MONO % 15.2 % (0.0-10.0); NEUT % 66.5 % (50.0-75.0); NRBC % 0.1 % (0.0-2.0); RBC 4.06 Mil/uL (4.40-5.90); RED CELL DISTRIBUTION WIDTH 16.1 % (11.5-14.5); WHITE BLOOD COUNT 7.6 K/uL (4.8-10.8)
[2017-07-20 08:35] LABS: ALB/GLOB RATIO 0.9 (1.0-2.1); ALT/SGPT 9 U/L (21-72); AST/SGOT 33 U/L (17-59); BLOOD UREA NITROGEN 18 mg/dL (9-20); CALCIUM 9.2 mg/dl (8.6-10.4); GFR AFRICAN-AMERICAN > 60; GFR NON-AFRICAN AMERICAN > 60
[2017-07-20] MEDS: Sacubitril/Valsartan 24-26mg Tab PO SCH ×2 (09:35→17:31)
[2017-07-20] MEDS: Potassium Chloride 10 mEq ER Tab PO SCH (09:35)
[2017-07-20] MEDS: Enoxaparin 40 mg Syringe SC SCH (09:36)
[2017-07-20] MEDS ORDERED: Magnesium Sulfate 1 gm/100 mL D5W IVPB ONE (09:36)
--- NOTE | 2017-07-20 09:39 | CP.PCM.PN ---
Subjective - Date & Time of Evaluation Date of Evaluation: 07/20/17 Time of Evaluation: 09:30 - Subjective Subjective: Patient reported that the swelling in the lower extremities has gone down considerably. He also reports breathing is improved more since yesterday as well We are pending company to come in and interrogate the device. Also the wound cultures of the lower extremity show MRSA as well as Enterobacter Cloace. Vancomycin and Cefepime started, later when he leaves possibly Clindamycin or Augmentin he could go on. Objective - Vital Signs/Intake and Output Vital Signs (last 24 hours): Temp Pulse Resp BP Pulse Ox 97.7 F 90 18 114/64 96 07/20/17 07:00 07/20/17 07:00 07/20/17 07:00 07/20/17 07:00 07/20/17 07:00 Intake and Output: 07/20/17 07/20/17 06:59 18:59 Output Total 400 Balance -400 - Medications Medications: Current Medications Aspirin (Aspirin Chewable) 81 mg PO DAILY [facility] Last Admin: 07/19/17 09:17 Dose: 81 mg Enoxaparin Sodium (Lovenox) 40 mg SC DAILY [facility] Last Admin: 07/19/17 09:17 Dose: 40 mg Furosemide (Lasix) 60 mg IVP Q12H [facility] Cefepime HCl 1 gm/ Dextrose 50 mls @ 100 mls/hr IVPB Q12H [facility] PRN Reason: Protocol Vancomycin/Sodium Chloride (Vancomycin 1 Gm/Ns 200 Ml) 1 gm in 200 mls @ 133.333 mls/hr IVPB Q12H [facility] PRN Reason: Protocol Stop: 07/25/17 09:01 Potassium Chloride (Klor-Con 10) 10 meq PO BRK [facility] Last Admin: 07/19/17 08:42 Dose: 10 meq Sacubitril/Valsartan (Entresto 24 Mg-26 Mg) 1 tab PO BID [facility] Last Admin: 07/19/17 18:28 Dose: 1 tab Spironolactone (Aldactone) 100 mg PO DAILY [facility] Last Admin: 07/19/17 09:17 Dose: 100 mg - Labs Labs: 07/20/17 08:00 07/20/17 08:00 PT 16.7 SECONDS (9.7-12.2) H 07/18/17 13:42 INR 1.5 07/18/17 13:42 APTT 36 SECONDS (21-34) H 07/18/17 13:42 - Constitutional Appears: Well - Head Exam Head Exam: NORMAL INSPECTION, NORMOCEPHALIC - Eye Exam Eye Exam: EOMI, Normal appearance Pupil Exam: NORMAL ACCOMODATION - Neck Exam Neck Exam: Normal Inspection - Respiratory Exam Respiratory Exam: Clear to Ausculation Bilateral - Cardiovascular Exam Cardiovascular Exam: REGULAR RHYTHM - Neurological Exam Neurological Exam: Alert, Awake, CN II-XII Intact Neuro motor strength exam: Left Upper Extremity: 5, Right Upper Extremity: 5, Left Lower Extremity: 5, Right Lower Extremity: 5 Assessment and Plan - Assessment and Plan (Free Text) Assessment: Assessment: Acute on Chronic Systolic CHF 07/20/2017: Lasix increased to 60 IV BID. He is reporting breathing improvment. Also checking a repeat CXRAY. The CT scan from admission suggested mild to moderate pleural effusion - probably hold off on thoracentesis since he seems to be responding very well to lasix. 01/10/17 echo EF 30-35% repeat echo 07/18/17: moderate to severe dilatation of all cardiac chambers. Ejection fraction 10-20%, severe diastolic dysfunction grade II, moderate to severe tricuspid regurg, trace pericardial effusion probnp: 3120 Trop I .0350, repeat x2 Lasix 40mg ivp q12h Aldactone 100mg po daily Kdur 10meq daily ASA 81mg po daily Entresto 24mg-26mg po daily monitor I+Os, daily weights Cardiology consulted, Dr. Rouse, help appreciated Pulm consulted, Dr. Lopez help appreciated AICD to be interrogated Pleural Effusions 07/20/2017: The pleural effusions are smaller than the previous ones he's had in the past. For now continue with lasix. Probably doesn't need thoracentesis this time. Also the CT did not show large ascities. Repeat CXRAY today Cxray: persistent severe cardiomegaly and layering pleural effusions CT chest, abd, pelvis without contrast: moderate pleural effusion at the right base, cardiomegaly, indeterminate 4.6mm right middle lobe nodule Liver Cirrhosis CT chest, abd, pelvis: cirrhosis with normal sized spleen, mild peripancreatic edema suggest possible pancreatitis; small volume ascites; 2 x 6x 4.2 cm abdominal wall collection with adjacent inflammatory change suggests possible abscess, similar findings described in prior report monitor liver enzymes LE wounds 07/21/27: Start on IV abx. The wound cultures showed MRSA as well as Enterobacter [place] Wound care consulted, help appreciated -dressing changed, medihoney applied HTN 07/20/17: Stable, in th 110s and 120s systolic. continue home med: Entresto lipid panel: Triglycerides 55, Cholesterol 108, LDL 51, HDL 30 monitor Prophylaxis SCDs contraindicated due to LE wounds no GI prophylaxis indicated low carb 2g Na diet
[2017-07-20] MEDS: Vancomycin 1 gm/NS 200 ml 1 GM/200 ML BAG IVPB SCH ×2 (10:32→20:35)
--- NOTE | 2017-07-20 11:39 | CP.PCM.PN ---
Subjective - Date & Time of Evaluation Date of Evaluation: 07/20/17 Time of Evaluation: 11:30 - Subjective Subjective: no new complaints. less dyspnea Objective - Vital Signs/Intake and Output Vital Signs (last 24 hours): Temp Pulse Resp BP Pulse Ox 97.7 F 90 18 114/64 96 07/20/17 07:00 07/20/17 07:00 07/20/17 07:00 07/20/17 07:00 07/20/17 07:00 Intake and Output: 07/20/17 07/20/17 06:59 18:59 Output Total 400 Balance -400 - Medications Medications: Current Medications Aspirin (Aspirin Chewable) 81 mg PO DAILY [facility] Last Admin: 07/20/17 09:35 Dose: 81 mg Carvedilol (Coreg) 3.125 mg PO BID [facility] Last Admin: 07/20/17 10:35 Dose: 3.125 mg Enoxaparin Sodium (Lovenox) 40 mg SC DAILY [facility] Last Admin: 07/20/17 09:36 Dose: 40 mg Furosemide (Lasix) 60 mg IVP Q12H [facility] Cefepime HCl 1 gm/ Dextrose 50 mls @ 100 mls/hr IVPB Q12H [facility] PRN Reason: Protocol Vancomycin/Sodium Chloride (Vancomycin 1 Gm/Ns 200 Ml) 1 gm in 200 mls @ 133.333 mls/hr IVPB Q12H [facility] PRN Reason: Protocol Stop: 07/25/17 09:01 Last Admin: 07/20/17 10:32 Dose: 133.333 mls/hr Potassium Chloride (Klor-Con 10) 10 meq PO BRK [facility] Last Admin: 07/20/17 09:35 Dose: 10 meq Sacubitril/Valsartan (Entresto 24 Mg-26 Mg) 1 tab PO BID [facility] Last Admin: 07/20/17 09:35 Dose: 1 tab Spironolactone (Aldactone) 100 mg PO DAILY [facility] Last Admin: 07/20/17 09:35 Dose: 100 mg - Labs Labs: 07/20/17 08:00 07/20/17 08:00 PT 16.7 SECONDS (9.7-12.2) H 07/18/17 13:42 INR 1.5 07/18/17 13:42 APTT 36 SECONDS (21-34) H 07/18/17 13:42 - Constitutional Appears: Non-toxic - Head Exam Head Exam: NORMAL INSPECTION - Eye Exam Eye Exam: Normal appearance - ENT Exam ENT Exam: Mucous Membranes Moist - Neck Exam Neck Exam: Full ROM - Respiratory Exam Respiratory Exam: Decreased Breath Sounds - Cardiovascular Exam Cardiovascular Exam: REGULAR RHYTHM - GI/Abdominal Exam GI & Abdominal Exam: Normal Bowel Sounds - Rectal Exam Rectal Exam: Deferred - Extremities Exam Extremities Exam: absent: Pedal Edema - Back Exam Back Exam: NORMAL INSPECTION - Neurological Exam Neurological Exam: Alert - Psychiatric Exam Psychiatric exam: Normal Affect - Skin Skin Exam: Normal Color Assessment and Plan (1) ALC (alcoholic liver cirrhosis) Status: Acute (2) Chronic congestive heart failure Assessment & Plan: conitnue diuresis Status: Acute
--- NOTE | 2017-07-20 13:18 | RAD ---
HISTORY: CHF follow up COMPARISON: Comparison made with chest radiograph 07/18/2017 FINDINGS: LUNGS: Persistent mild pulmonary vascular congestion improved however from prior study. Mild bilateral lower lobe alveolar-type infiltrates and bilateral effusions right larger than left PLEURA: As above. No apparent pneumothorax CARDIOVASCULAR: Marked cardiomegaly. No change bipolar pacemaker/defibrillator OSSEOUS STRUCTURES: No significant abnormalities. VISUALIZED UPPER ABDOMEN: Normal. OTHER FINDINGS: None. IMPRESSION: Marked cardiomegaly. . Persistent mild pulmonary vascular congestion improved however from prior study. Mild bilateral lower lobe alveolar-type infiltrates and bilateral effusions right larger than left
[2017-07-21 07:46] LABS: BASO % 0.5 % (0.0-2.0); EOS # 0.2 K/uL (0.0-0.7); EOS % 3.3 % (0.0-4.0); HEMOGLOBIN 11.8 g/dL (12.0-18.0); LYMPH # 1.2 K/uL (1.0-4.3); LYMPH % 16.3 % (20.0-40.0); MEAN CELL VOLUME 87.3 fL (80.0-94.0); MEAN CORPUSCULAR HEMOGLOBIN 28.7 pg (27.0-31.0); MEAN CORPUSCULAR HGB CONC 32.8 g/dL (33.0-37.0); MEAN PLATELET VOLUME 7.7 fL (7.2-11.7); MONO # 1.1 K/uL (0.0-0.8); MONO % 14.7 % (0.0-10.0); NEUT # 4.7 K/uL (1.8-7.0); NEUT % 65.2 % (50.0-75.0); RBC 4.11 Mil/uL (4.40-5.90); RED CELL DISTRIBUTION WIDTH 16.1 % (11.5-14.5); WHITE BLOOD COUNT 7.3 K/uL (4.8-10.8)
[2017-07-21 08:10] VITALS: RESP 20
[2017-07-21 08:11] LABS: ALT/SGPT 9 U/L (21-72); AST/SGOT 27 U/L (17-59); BLOOD UREA NITROGEN 21 mg/dL (9-20); CALCIUM 8.5 mg/dl (8.6-10.4); GFR AFRICAN-AMERICAN > 60; GFR NON-AFRICAN AMERICAN > 60
[2017-07-21 08:31] LABS: ALB/GLOB RATIO 0.8 (1.0-2.1)
[2017-07-21 08:35] LABS: ALBUMIN 3.4 g/dL (3.5-5.0)
--- NOTE | 2017-07-21 08:38 | CP.PCM.PN ---
Subjective - Date & Time of Evaluation Date of Evaluation: 07/21/17 Time of Evaluation: 08:20 - Subjective Subjective: improved breathing. urinating and denies dyspnea Objective - Vital Signs/Intake and Output Vital Signs (last 24 hours): Temp Pulse Resp BP Pulse Ox 97.7 F 76 20 112/71 96 07/21/17 07:10 07/21/17 07:10 07/21/17 07:10 07/21/17 07:39 07/21/17 07:10 Intake and Output: 07/21/17 07/21/17 06:59 18:59 Intake Total 200 Output Total 1000 Balance -800 - Medications Medications: Current Medications Aspirin (Aspirin Chewable) 81 mg PO DAILY [facility] Last Admin: 07/20/17 09:35 Dose: 81 mg Carvedilol (Coreg) 3.125 mg PO BID [facility] Last Admin: 07/20/17 17:31 Dose: 3.125 mg Enoxaparin Sodium (Lovenox) 40 mg SC DAILY [facility] Last Admin: 07/20/17 09:36 Dose: 40 mg Furosemide (Lasix) 60 mg IVP Q12H [facility] Last Admin: 07/21/17 07:39 Dose: 60 mg Vancomycin/Sodium Chloride (Vancomycin 1 Gm/Ns 200 Ml) 1 gm in 200 mls @ 133.333 mls/hr IVPB Q12H [facility] PRN Reason: Protocol Stop: 07/25/17 09:01 Last Admin: 07/20/17 20:35 Dose: 133.333 mls/hr Cefepime HCl 1 gm/ Dextrose 50 mls @ 100 mls/hr IVPB Q12H [facility] PRN Reason: Protocol Last Admin: 07/21/17 01:03 Dose: 100 mls/hr Potassium Chloride (Klor-Con 10) 10 meq PO BRK [facility] Last Admin: 07/20/17 09:35 Dose: 10 meq Sacubitril/Valsartan (Entresto 24 Mg-26 Mg) 1 tab PO BID [facility] Last Admin: 07/20/17 17:31 Dose: 1 tab Spironolactone (Aldactone) 100 mg PO DAILY [facility] Last Admin: 07/20/17 09:35 Dose: 100 mg - Labs Labs: 07/21/17 07:35 07/21/17 07:35 PT 16.7 SECONDS (9.7-12.2) H 07/18/17 13:42 INR 1.5 07/18/17 13:42 APTT 36 SECONDS (21-34) H 07/18/17 13:42 - Constitutional Appears: Non-toxic - Head Exam Head Exam: NORMAL INSPECTION - Eye Exam Eye Exam: Normal appearance - ENT Exam ENT Exam: Mucous Membranes Moist - Neck Exam Neck Exam: Full ROM - Respiratory Exam Respiratory Exam: NORMAL BREATHING PATTERN - Cardiovascular Exam Cardiovascular Exam: REGULAR RHYTHM - GI/Abdominal Exam GI & Abdominal Exam: Normal Bowel Sounds - Rectal Exam Rectal Exam: Deferred - Extremities Exam Extremities Exam: Pedal Edema - Back Exam Back Exam: NORMAL INSPECTION - Neurological Exam Neurological Exam: Alert - Psychiatric Exam Psychiatric exam: Normal Affect - Skin Skin Exam: Normal Color Assessment and Plan (1) Chronic congestive heart failure Assessment & Plan: improving with diuresis. medical therapy. stable for d/c Status: Acute (2) ALC (alcoholic liver cirrhosis) Status: Acute
--- NOTE | 2017-07-21 09:04 | CP.PCM.PN ---
Subjective - Date & Time of Evaluation Date of Evaluation: 07/21/17 Time of Evaluation: 09:00 - Subjective Subjective: Patient was actively walking around in the hallway when I saw him. He was easily able to come into the nurses station and look at his own telemetry. He explains that the swelling in legs continues to decrease and also that his breathing is much better. Hopefully the device manufacture will come today. The I, Os, and daily weights have not been accurately recorded. Yesterday when I spoke to him I explained that we may discharge him today, however when I spoke with him he was hesitant since he explained he didn't have family that could get him back home today. Objective - Vital Signs/Intake and Output Vital Signs (last 24 hours): Temp Pulse Resp BP Pulse Ox 97.7 F 76 20 112/71 96 07/21/17 07:10 07/21/17 07:10 07/21/17 07:10 07/21/17 07:39 07/21/17 07:10 Intake and Output: 07/21/17 07/21/17 06:59 18:59 Intake Total 200 Output Total 1000 Balance -800 - Medications Medications: Current Medications Aspirin (Aspirin Chewable) 81 mg PO DAILY [facility] Last Admin: 07/20/17 09:35 Dose: 81 mg Carvedilol (Coreg) 3.125 mg PO BID [facility] Last Admin: 07/20/17 17:31 Dose: 3.125 mg Enoxaparin Sodium (Lovenox) 40 mg SC DAILY [facility] Last Admin: 07/20/17 09:36 Dose: 40 mg Furosemide (Lasix) 60 mg IVP Q12H [facility] Last Admin: 07/21/17 07:39 Dose: 60 mg Vancomycin/Sodium Chloride (Vancomycin 1 Gm/Ns 200 Ml) 1 gm in 200 mls @ 133.333 mls/hr IVPB Q12H [facility] PRN Reason: Protocol Stop: 07/25/17 09:01 Last Admin: 07/20/17 20:35 Dose: 133.333 mls/hr Cefepime HCl 1 gm/ Dextrose 50 mls @ 100 mls/hr IVPB Q12H [facility] PRN Reason: Protocol Last Admin: 07/21/17 01:03 Dose: 100 mls/hr Potassium Chloride (Klor-Con 10) 10 meq PO BRK [facility] Last Admin: 07/20/17 09:35 Dose: 10 meq Sacubitril/Valsartan (Entresto 24 Mg-26 Mg) 1 tab PO BID [facility] Last Admin: 07/20/17 17:31 Dose: 1 tab Spironolactone (Aldactone) 100 mg PO DAILY [facility] Last Admin: 07/20/17 09:35 Dose: 100 mg - Labs Labs: 07/21/17 07:35 07/21/17 07:35 PT 16.7 SECONDS (9.7-12.2) H 07/18/17 13:42 INR 1.5 07/18/17 13:42 APTT 36 SECONDS (21-34) H 07/18/17 13:42 - Constitutional Appears: Well, No Acute Distress - Head Exam Head Exam: NORMAL INSPECTION, NORMOCEPHALIC - Eye Exam Eye Exam: EOMI - ENT Exam ENT Exam: Mucous Membranes Moist - Respiratory Exam Respiratory Exam: Decreased Breath Sounds, NORMAL BREATHING PATTERN Additional comments: Much better today. Less rhonci - Cardiovascular Exam Cardiovascular Exam: REGULAR RHYTHM - GI/Abdominal Exam GI & Abdominal Exam: Soft, Normal Bowel Sounds - Neurological Exam Neurological Exam: Alert, Awake, CN II-XII Intact, Normal Gait, Oriented x3 Neuro motor strength exam: Left Upper Extremity: 5, Right Upper Extremity: 5, Left Lower Extremity: 5, Right Lower Extremity: 5 - Psychiatric Exam Psychiatric exam: Normal Affect, Normal Mood - Skin Skin Exam: Normal Color, Warm Assessment and Plan - Assessment and Plan (Free Text) Assessment: Assessment: Acute on Chronic Systolic CHF 07/21/2017: The patient is actively walking in the hallway. CXRAY looks better. Hopefully today or tommorow can be discharged. Also the I and Os have not been accurate. The weights are not accurate either. I will have to talk to staff about this. Nevertheless there is visible improvment in the lower extremities as well as on exam of lung sounds. 07/20/2017: Lasix increased to 60 IV BID. He is reporting breathing improvment. Also checking a repeat CXRAY. The CT scan from admission suggested mild to moderate pleural effusion - probably hold off on thoracentesis since he seems to be responding very well to lasix. 01/10/17 echo EF 30-35% repeat echo 07/18/17: moderate to severe dilatation of all cardiac chambers. Ejection fraction 10-20%, severe diastolic dysfunction grade II, moderate to severe tricuspid regurg, trace pericardial effusion probnp: 3120 Trop I .0350, repeat x2 Lasix 40mg ivp q12h Aldactone 100mg po daily Kdur 10meq daily ASA 81mg po daily Entresto 24mg-26mg po daily Cardiology consulted, Dr. Rouse, help appreciated Pulm consulted, Dr. Lopez help appreciated AICD to be interrogated Pleural Effusions 07/21/2017: The patient is responding well with the IV lasix. 07/20/2017: The pleural effusions are smaller than the previous ones he's had in the past. For now continue with lasix. Probably doesn't need thoracentesis this time. Also the CT did not show large ascities. Repeat CXRAY today Cxray: persistent severe cardiomegaly and layering pleural effusions CT chest, abd, pelvis without contrast: moderate pleural effusion at the right base, cardiomegaly, indeterminate 4.6mm right middle lobe nodule Liver Cirrhosis CT chest, abd, pelvis: cirrhosis with normal sized spleen, mild peripancreatic edema suggest possible pancreatitis; small volume ascites; 2 x 6x 4.2 cm abdominal wall collection with adjacent inflammatory change suggests possible abscess, similar findings described in prior report monitor liver enzymes LE wounds 07/21/2017: Should be sent home with PO abx for at least 7 days. 07/21/27: Start on IV abx. The wound cultures showed MRSA as well as Enterobacter [place] Wound care consulted, help appreciated -dressing changed, medihoney applied HTN 07/20/17: Stable, in th 110s and 120s systolic. continue home med: Entresto lipid panel: Triglycerides 55, Cholesterol 108, LDL 51, HDL 30 monitor Prophylaxis SCDs contraindicated due to LE wounds no GI prophylaxis indicated low carb 2g Na diet
[2017-07-21] MEDS: Vancomycin 1 gm/NS 200 ml 1 GM/200 ML BAG IVPB SCH ×2 (09:57→20:11)
[2017-07-21] MEDS: Sacubitril/Valsartan 24-26mg Tab PO SCH ×2 (09:57→18:00)
[2017-07-21] MEDS: Enoxaparin 40 mg Syringe SC SCH (09:57)
[2017-07-21] MEDS: Potassium Chloride 10 mEq ER Tab PO SCH (09:58)
--- NOTE | 2017-07-21 18:08 | CP.PCM.PN ---
Subjective - Date & Time of Evaluation Date of Evaluation: 07/21/17 Time of Evaluation: 16:00 - Subjective Subjective: patient seen and examined Sitting comfortably in no acute distress Patient states breathing much improved Afebrile Denies any chest pain Denies any cough Objective - Vital Signs/Intake and Output Vital Signs (last 24 hours): Temp Pulse Resp BP Pulse Ox 97.7 F 80 20 123/76 95 07/21/17 15:26 07/21/17 15:26 07/21/17 15:26 07/21/17 15:26 07/21/17 15:26 Intake and Output: 07/21/17 07/21/17 06:59 18:59 Intake Total 200 730 Output Total 1000 2000 Balance -800 -1270 - Medications Medications: Current Medications Aspirin (Aspirin Chewable) 81 mg PO DAILY [facility] Last Admin: 07/21/17 09:57 Dose: 81 mg Carvedilol (Coreg) 3.125 mg PO BID [facility] Last Admin: 07/21/17 18:00 Dose: 3.125 mg Enoxaparin Sodium (Lovenox) 40 mg SC DAILY [facility] Last Admin: 07/21/17 09:57 Dose: 40 mg Furosemide (Lasix) 60 mg IVP Q12H [facility] Last Admin: 07/21/17 07:39 Dose: 60 mg Vancomycin/Sodium Chloride (Vancomycin 1 Gm/Ns 200 Ml) 1 gm in 200 mls @ 133.333 mls/hr IVPB Q12H [facility] PRN Reason: Protocol Stop: 07/25/17 09:01 Last Admin: 07/21/17 09:57 Dose: 133.333 mls/hr Cefepime HCl 1 gm/ Dextrose 50 mls @ 100 mls/hr IVPB Q12H [facility] PRN Reason: Protocol Last Admin: 07/21/17 13:37 Dose: 100 mls/hr Potassium Chloride (Klor-Con 10) 10 meq PO BRK [facility] Last Admin: 07/21/17 09:58 Dose: 10 meq Sacubitril/Valsartan (Entresto 24 Mg-26 Mg) 1 tab PO BID [facility] Last Admin: 07/21/17 18:00 Dose: 1 tab Spironolactone (Aldactone) 100 mg PO DAILY [facility] Last Admin: 07/21/17 09:58 Dose: 100 mg - Labs Labs: 07/21/17 07:35 05/06/18 07:35 PT 16.7 SECONDS (9.7-12.2) H 07/18/17 13:42 INR 1.5 07/18/17 13:42 APTT 36 SECONDS (21-34) H 07/18/17 13:42 - Head Exam Head Exam: ATRAUMATIC, NORMOCEPHALIC - ENT Exam ENT Exam: Mucous Membranes Moist - Respiratory Exam Respiratory Exam: Clear to Ausculation Bilateral - Cardiovascular Exam Cardiovascular Exam: REGULAR RHYTHM - GI/Abdominal Exam GI & Abdominal Exam: Soft, Normal Bowel Sounds Assessment and Plan (1) Chronic congestive heart failure Status: Acute (2) Pleural effusion Assessment & Plan: Clinically patient much improved Also on examination good air entry on both lungs Continue medical management No thoracentesis at this point Status: Acute
[2017-07-21] MEDS ORDERED: guaiFENesin 200 mg/10 ml Syrup UD PO ONE (20:00)
[2017-07-22] MEDS ORDERED: Magnesium Sulfate 1 gm in D5W 1 GM/100 ML BAG IVPB ONE (09:25)
[2017-07-22] MEDS ORDERED: Pneumococcal 23-Valent Vaccine IM ONE (10:00)
[2017-07-22] MEDS: Potassium Chloride 10 mEq ER Tab PO SCH (10:18)
[2017-07-22] MEDS: Enoxaparin 40 mg Syringe SC SCH (10:18)
[2017-07-22] MEDS: Sacubitril/Valsartan 24-26mg Tab PO SCH (10:20)
[2017-07-22] MEDS: Vancomycin 1 gm/NS 200 ml 1 GM/200 ML BAG IVPB SCH (10:26)
--- NOTE | 2017-07-22 12:10 | CP.PCM.DIS ---
<Natasha Beard - Last Filed: 07/22/17 12:07> Provider - Provider Date of Admission: 07/18/17 16:25 Attending physician: Abimael Mahajan MD Primary care physician: Dr. Rock Consults: Cardio: Dr. Rouse Pulm: Dr. Lopez Time Spent in preparation of Discharge (in minutes): 45 Diagnosis - Discharge Diagnosis (1) Acute on chronic systolic CHF (congestive heart failure) Status: Resolved (2) Systolic CHF Status: Chronic (3) AICD (automatic cardioverter/defibrillator) present Status: Chronic Comment: interrogated during admission (4) Pleural effusion on right Status: Acute Priority: Medium Comment: resolving (5) Hypertension Status: Chronic Priority: Medium (6) Liver cirrhosis Status: Chronic (7) Impaired glucose tolerance Status: Chronic Hospital Course - Lab Results Lab Results: Micro Results 07/18/17 Unknown Leg - Right Gram Stain - Final 07/18/17 Unknown Leg - Right Wound Culture - Final Methicillin Resistant S Aureus 07/18/17 Unknown Leg - Right Gram Stain - Final 07/18/17 Unknown Leg - Right Wound Culture - Final Methicillin Resistant S Aureus Enterobacter Cloacae Ssp Cloac Most Recent Lab Values WBC 7.3 K/uL (4.8-10.8) 07/21/17 07:35 RBC 4.11 Mil/uL (4.40-5.90) L 07/21/17 07:35 Hgb 11.8 g/dL (12.0-18.0) L 07/21/17 07:35 Hct 35.9 % (35.0-51.0) 07/21/17 07:35 MCV 87.3 fL (80.0-94.0) 07/21/17 07:35 MCH 28.7 pg (27.0-31.0) 07/21/17 07:35 MCHC 32.8 g/dL (33.0-37.0) L 07/21/17 07:35 RDW 16.1 % (11.5-14.5) H 07/21/17 07:35 Plt Count 178 K/uL (130-400) 07/21/17 07:35 MPV 7.7 fL (7.2-11.7) 07/21/17 07:35 Neut % (Auto) 65.2 % (50.0-75.0) 07/21/17 07:35 Lymph % (Auto) 16.3 % (20.0-40.0) L 07/21/17 07:35 Graves % (Auto) 14.7 % (0.0-10.0) H 07/21/17 07:35 Eos % (Auto) 3.3 % (0.0-4.0) 07/21/17 07:35 Baso % (Auto) 0.5 % (0.0-2.0) 07/21/17 07:35 Neut # (Auto) 4.7 K/uL (1.8-7.0) 07/21/17 07:35 Lymph # (Auto) 1.2 K/uL (1.0-4.3) 07/21/17 07:35 Graves # (Auto) 1.1 K/uL (0.0-0.8) H 07/21/17 07:35 Eos # (Auto) 0.2 K/uL (0.0-0.7) 07/21/17 07:35 Baso # (Auto) 0.0 K/uL (0.0-0.2) 07/21/17 07:35 PT 16.7 SECONDS (9.7-12.2) H 07/18/17 13:42 INR 1.5 07/18/17 13:42 APTT 36 SECONDS (21-34) H 07/18/17 13:42 Sodium 139 mmol/L (132-148) 07/21/17 07:35 Potassium 4.1 mmol/L (3.6-5.2) 07/21/17 07:35 Chloride 97 mmol/L (98-107) L 07/21/17 07:35 Carbon Dioxide 32 mmol/L (22-30) H 07/21/17 07:35 Anion Gap 14 (10-20) 07/21/17 07:35 BUN 21 mg/dL (9-20) H 07/21/17 07:35 Creatinine 1.2 mg/dL (0.8-1.5) 07/21/17 07:35 Est GFR ( Amer) > 60 07/21/17 07:35 Est GFR (Non-Af Amer) > 60 07/21/17 07:35 POC Glucose (mg/dL) 131 mg/dL (65-110) H 07/18/17 21:34 Random Glucose 94 mg/dL (75-110) 07/21/17 07:35 Hemoglobin A1c 6.1 % (4.2-6.5) 07/19/17 07:25 Calcium 8.5 mg/dl (8.6-10.4) L 07/21/17 07:35 Phosphorus 3.7 mg/dL (2.5-4.5) 07/21/17 07:35 Magnesium 1.5 mg/dL (1.6-2.3) L 07/21/17 07:35 Total Bilirubin 0.9 mg/dL (0.2-1.3) 07/21/17 07:35 AST 27 U/L (17-59) 07/21/17 07:35 ALT 9 U/L (21-72) L 07/21/17 07:35 Alkaline Phosphatase 93 U/L (38-126) 07/21/17 07:35 Total Creatine Kinase 115 U/L (55-170) 07/19/17 01:38 CK-MB (Mass) 1.63 ng/mL (0.0-3.38) 07/19/17 01:38 Troponin I 0.0610 ng/mL (0.00-0.120) 07/19/17 01:38 NT-Pro-B Natriuret Pep 3120 pg/mL (0-900) H 07/18/17 13:42 Total Protein 7.8 g/dL (6.3-8.3) 07/21/17 07:35 Albumin 3.4 g/dL (3.5-5.0) L 07/21/17 07:35 Globulin 4.4 gm/dL (2.2-3.9) H 07/21/17 07:35 Albumin/Globulin Ratio 0.8 (1.0-2.1) L 07/21/17 07:35 Triglycerides 55 mg/dL (0-149) D 07/19/17 07:25 Cholesterol 108 mg/dL (0-199) 07/19/17 07:25 LDL Cholesterol Direct 51 mg/dL (0-129) 07/19/17 07:25 HDL Cholesterol 30 mg/dL (30-70) 07/19/17 07:25 Lipase 110 U/L (23-300) 07/19/17 07:25 - Hospital Course Hospital Course: HPI: "Patient is a 67 year old male with past medical history of defibrillator and pacemaker(2011), CHF, HTN, liver cirrhosis, pleural effusions, and possible DMII who presents today because Dr. Rouse recommended he come to the ED for his shortness of breath. Patient says the past 3 weeks he has become more short of breath. 2 weeks ago he developed a cough with white sputum. Patient says he can lay flat at night, but can only walk a few steps before becoming short of breath. Patient has been coughing so much that sometimes he becomes nauseous. Patient also believes he has gained about 20-25lbs unintentionally in the last 4 months and has noticed that his abdomen is getting much larger and distended. Patient admits to ulcers on his legs bilaterally that started 2 weeks ago and are draining fluid. Patient went to his PMD, Dr. Rock on Saturday who recommended he speak with the tanker service attendant Dr. Rouse. Patient was told by Dr. Lehman's staff that he should come to the ED on Saturday. Patient says he did not come until today because he was busy with "something very important." Patient denies any chest pain, palpitations, vomiting, constipation, or diarrhea. " Upon admission, the following imaging and diagnostic exams were conducted: Chest XR: Persistent severe cardiomegaly and layering pleural effusions. Electrocardiogram: Ventricular paced rhythm. CT Chest w/o Contrast: Moderate right pleural effusion with atelectatic changes greatest at right base. Cardiomegaly with pacemaker/defibrillator. Indeterminate 4.6mm right middle lobe nodule. CT ABD and Pelvis w/o contrast: Cirrhosis with normal sized spleen. Mild peripancreatic edema suggest possible pancreatitis. Small volume ascites. 2x6x4.2cm abdominal wall bolection with adjacent inflammatory change suggests possible abscess. Echocardiogram: Moderate to severe dilation of all cardiac chambers with moderate concentric LVH with severe global hypokineses. EF is about 10-20%. Moderate to severe right ventricular dysfunction and severe tricuspid regurgitation. Mitral regurgitation is mold to moderate. Trace pericardial effusion. For patient's acute on chronic systolic CHF. Cardiology, Dr. Rouse, was consulted and recommended diuresis and interrogation of the AICD. Pulmonology, Dr. Lopez, was consulted and recommended IR consult for thoracentesis. However due to the small size of the right pleural effusion, no thoracentesis will be done for the patient. Patient was diuresed with IV Lasix and aldactone. Shortness of breath and LE swelling resolved. AICD was interrogated. Patient was continued on his home medications for his hypertension and CAD. Patient said he had a history of Diabetes. HGA1C was checked and found to be 6.1. Patient recommended to maintain a low carb diet. For patient chronic liver cirrhosis, the amount of ascites on CT was too minimal for a paracentesis. CT showed mild peripancreatic edema suggesting possible pancreatitis. Patient had no abdominal pain or nausea or vomiting. Lipase was checked and found to be normal. Additionally a 2 x 6x 4.2 cm abdominal wall collection with adjacent inflammatory changes was seen on CT which has been seen on prior studies with possible calcification. Patient will need to have this monitored as an outpatient. Patient also found to have LE wounds on admission. Patient seen by wound care who dressed the wounds with medihoney. Wound culture was positive for MRSA as well as Enterobacter Cloaca. Patient was given IV antibiotics and will continue oral antibiotics as an outpatient. This is a summary of the patient's hospital course, please see chart for full details. Discharge Exam - Additional Findings Additional findings: - Constitutional Appears: Well, No Acute Distress - Head Exam Head Exam: NORMAL INSPECTION, NORMOCEPHALIC - Eye Exam Eye Exam: EOMI - ENT Exam ENT Exam: Mucous Membranes Moist - Respiratory Exam Respiratory Exam: Decreased Breath Sounds, NORMAL BREATHING PATTERN - Cardiovascular Exam Cardiovascular Exam: REGULAR RHYTHM - GI/Abdominal Exam GI & Abdominal Exam: Soft, Normal Bowel Sounds - Neurological Exam Neurological Exam: Alert, Awake, CN II-XII Intact, Normal Gait, Oriented x3 Neuro motor strength exam: Left Upper Extremity: 5, Right Upper Extremity: 5, Left Lower Extremity: 5, Right Lower Extremity: 5 - Psychiatric Exam Psychiatric exam: Normal Affect, Normal Mood - Skin Skin Exam: Normal Color, Warm Discharge Plan - Discharge Medications Prescriptions: Aspirin [Aspirin Chewable] 81 mg PO DAILY #30 chew Carvedilol [Coreg] 3.125 mg PO BID #60 tab Furosemide 40 mg PO DAILY #30 tablet Sacubitril/Valsartan [Entresto 24 mg-26 mg] 1 tab PO BID #60 tablet Spironolactone [Aldactone] 100 mg PO DAILY #30 tab Sulfamethoxazole/Trimethoprim [Bactrim 400-80 mg Tablet] 1 each PO BID #6 tablet - Follow Up Plan Condition: FAIR Disposition: HOME/ ROUTINE Instructions: Heart Failure, Adult (DC), Medicines for Heart Failure With Reduced Ejection Fraction, Heart Failure Exercise Guide Additional Instructions: Patient stable for discharge as per Dr. Khan and Dr. Rouse. Patient to take the following medications as prescribed: Bactrim by mouth twice a day for 3 days Lasix 40mg by mouth daily Coreg 3.125mg by mouth twice a day Baby aspirin (81mg) daily Entresto 24mg-26mg twice a day Aldactone 100mg daily Patient to please call Dr. Rouse to make an appointment. Patient to please see Dr. Rock to follow up his lower extremity wounds within 1 week. Patient to please return to ED if symptoms return. Patient explained instructions who understands and agrees. Referrals: Jluis Rock, FABIÁN, BIOLOGICAL TECHNICIAN [Advanced Practice Nurse] - New Rouse MD [Staff Provider] - <Leonor Khan - Last Filed: 07/22/17 14:34> Provider - Provider Date of Admission: 07/18/17 16:25 Attending physician: Abimael Mahajan MD Hospital Course - Lab Results Lab Results: Micro Results 07/18/17 Unknown Leg - Right Gram Stain - Final 07/18/17 Unknown Leg - Right Wound Culture - Final Methicillin Resistant S Aureus 07/18/17 Unknown Leg - Right Gram Stain - Final 07/18/17 Unknown Leg - Right Wound Culture - Final Methicillin Resistant S Aureus Enterobacter Cloacae Ssp Cloac Most Recent Lab Values WBC 7.3 K/uL (4.8-10.8) 07/21/17 07:35 RBC 4.11 Mil/uL (4.40-5.90) L 07/21/17 07:35 Hgb 11.8 g/dL (12.0-18.0) L 07/21/17 07:35 Hct 35.9 % (35.0-51.0) 07/21/17 07:35 MCV 87.3 fL (80.0-94.0) 07/21/17 07:35 MCH 28.7 pg (27.0-31.0) 07/21/17 07:35 MCHC 32.8 g/dL (33.0-37.0) L 07/21/17 07:35 RDW 16.1 % (11.5-14.5) H 07/21/17 07:35 Plt Count 178 K/uL (130-400) 07/21/17 07:35 MPV 7.7 fL (7.2-11.7) 07/21/17 07:35 Neut % (Auto) 65.2 % (50.0-75.0) 07/21/17 07:35 Lymph % (Auto) 16.3 % (20.0-40.0) L 07/21/17 07:35 Graves % (Auto) 14.7 % (0.0-10.0) H 07/21/17 07:35 Eos % (Auto) 3.3 % (0.0-4.0) 07/21/17 07:35 Baso % (Auto) 0.5 % (0.0-2.0) 07/21/17 07:35 Neut # (Auto) 4.7 K/uL (1.8-7.0) 07/21/17 07:35 Lymph # (Auto) 1.2 K/uL (1.0-4.3) 07/21/17 07:35 Graves # (Auto) 1.1 K/uL (0.0-0.8) H 07/21/17 07:35 Eos # (Auto) 0.2 K/uL (0.0-0.7) 07/21/17 07:35 Baso # (Auto) 0.0 K/uL (0.0-0.2) 07/21/17 07:35 PT 16.7 SECONDS (9.7-12.2) H 07/18/17 13:42 INR 1.5 07/18/17 13:42 APTT 36 SECONDS (21-34) H 07/18/17 13:42 Sodium 139 mmol/L (132-148) 07/21/17 07:35 Potassium 4.1 mmol/L (3.6-5.2) 07/21/17 07:35 Chloride 97 mmol/L (98-107) L 07/21/17 07:35 Carbon Dioxide 32 mmol/L (22-30) H 07/21/17 07:35 Anion Gap 14 (10-20) 07/21/17 07:35 BUN 21 mg/dL (9-20) H 07/21/17 07:35 Creatinine 1.2 mg/dL (0.8-1.5) 07/21/17 07:35 Est GFR ( Amer) > 60 07/21/17 07:35 Est GFR (Non-Af Amer) > 60 07/21/17 07:35 POC Glucose (mg/dL) 131 mg/dL (65-110) H 07/18/17 21:34 Random Glucose 94 mg/dL (75-110) 07/21/17 07:35 Hemoglobin A1c 6.1 % (4.2-6.5) 07/19/17 07:25 Calcium 8.5 mg/dl (8.6-10.4) L 07/21/17 07:35 Phosphorus 3.7 mg/dL (2.5-4.5) 07/21/17 07:35 Magnesium 1.5 mg/dL (1.6-2.3) L 07/21/17 07:35 Total Bilirubin 0.9 mg/dL (0.2-1.3) 07/21/17 07:35 AST 27 U/L (17-59) 07/21/17 07:35 ALT 9 U/L (21-72) L 07/21/17 07:35 Alkaline Phosphatase 93 U/L (38-126) 07/21/17 07:35 Total Creatine Kinase 115 U/L (55-170) 07/19/17 01:38 CK-MB (Mass) 1.63 ng/mL (0.0-3.38) 07/19/17 01:38 Troponin I 0.0610 ng/mL (0.00-0.120) 07/19/17 01:38 NT-Pro-B Natriuret Pep 3120 pg/mL (0-900) H 07/18/17 13:42 Total Protein 7.8 g/dL (6.3-8.3) 07/21/17 07:35 Albumin 3.4 g/dL (3.5-5.0) L 07/21/17 07:35 Globulin 4.4 gm/dL (2.2-3.9) H 07/21/17 07:35 Albumin/Globulin Ratio 0.8 (1.0-2.1) L 07/21/17 07:35 Triglycerides 55 mg/dL (0-149) D 07/19/17 07:25 Cholesterol 108 mg/dL (0-199) 07/19/17 07:25 LDL Cholesterol Direct 51 mg/dL (0-129) 07/19/17 07:25 HDL Cholesterol 30 mg/dL (30-70) 07/19/17 07:25 Lipase 110 U/L (23-300) 07/19/17 07:25 Attending/Attestation - Attestation I have personally seen and examined this patient.: Yes I have fully participated in the care of the patient.: Yes I have reviewed all pertinent clinical information, including history, physical exam and plan: Yes
--- NOTE | 2017-07-22 12:36 | PCM.HF ---
Heart Failure Core Measure - Heart Failure Ejection Fraction: Less Than 40 % Left Ventricular Function to be assessed after discharge: No JUANITA Inhibitor Prescribed: No Contraindication/Reason for not providing: on ARB Beta-Erlinda Prescribed: Carvedilol Angiotensin II Receptor Erlinda Prescribed: Yes AnticoagulationTherapy for Atrial Fibrillation/Atrialflutter: No Contraindication/Reason for not providing: not indicated Aldosterone Antagonist Prescribed: Yes Hydralazine Nitrate Prescribed: No Contraindication/Reason for not providing: not indicated Implantable Cardioverter Defibrillator Therapy: Yes - Follow up Will be discharged to: Home (follow up with Dr. Rouse) Follow Up Date (must be within 7 days from discharge): 07/29/17 Follow Up Time: 09:00
[2017-07-22 15:47] VITALS: BP 118/74; PULSE 87; TEMP 97.8; O2SAT 97
--- NOTE | 2017-07-22 17:03 | CP.PCM.PN ---
Subjective - Date & Time of Evaluation Date of Evaluation: 07/22/17 Time of Evaluation: 10:40 - Subjective Subjective: Patient seen and examined at bedside. No acute events overnight per nursing. The patient again reports that his breathing has improved and denies chest pain and cough. Patient clear for discharge from pulmonary standpoint. Assessment and Plan: 1. Pleural effusion - CT Chest/Abd/Pel 07/18: small to moderate right pleural effusion - Patient is clinically much improved, no thoracentesis at this point - continue to monitor 2. CHF - Dr. Rouse on-board - c/w lasix - spironolactone - coreg - c/w entresto Objective - Vital Signs/Intake and Output Vital Signs (last 24 hours): Temp Pulse Resp BP Pulse Ox 97.8 F 87 20 118/74 97 07/22/17 15:45 07/22/17 15:45 07/22/17 15:45 07/22/17 15:45 07/22/17 15:45 Intake and Output: 07/22/17 07/22/17 06:59 18:59 Intake Total 730 Output Total 1000 Balance -270 - Medications Medications: Current Medications Aspirin (Aspirin Chewable) 81 mg PO DAILY [facility] Last Admin: 07/22/17 10:17 Dose: 81 mg Carvedilol (Coreg) 3.125 mg PO BID [facility] Last Admin: 07/22/17 10:18 Dose: 3.125 mg Docusate Sodium (Colace) 100 mg PO BID [facility] Last Admin: 07/22/17 10:17 Dose: 100 mg Enoxaparin Sodium (Lovenox) 40 mg SC DAILY [facility] Last Admin: 07/22/17 10:18 Dose: 40 mg Furosemide (Lasix) 60 mg IVP Q12H [facility] Last Admin: 07/22/17 06:45 Dose: 60 mg Vancomycin/Sodium Chloride (Vancomycin 1 Gm/Ns 200 Ml) 1 gm in 200 mls @ 133.333 mls/hr IVPB Q12H [facility] PRN Reason: Protocol Stop: 07/25/17 09:01 Last Admin: 07/22/17 10:26 Dose: 133.333 mls/hr Cefepime HCl 1 gm/ Dextrose 50 mls @ 100 mls/hr IVPB Q12H [facility] PRN Reason: Protocol Last Admin: 07/22/17 13:29 Dose: 100 mls/hr Potassium Chloride (Klor-Con 10) 10 meq PO BRK [facility] Last Admin: 07/22/17 10:18 Dose: 10 meq Sacubitril/Valsartan (Entresto 24 Mg-26 Mg) 1 tab PO BID [facility] Last Admin: 07/22/17 10:20 Dose: 1 tab Spironolactone (Aldactone) 100 mg PO DAILY [facility] Last Admin: 07/22/17 10:20 Dose: 100 mg - Labs Labs: 07/21/17 07:35 07/21/17 07:35 PT 16.7 SECONDS (9.7-12.2) H 07/18/17 13:42 INR 1.5 07/18/17 13:42 APTT 36 SECONDS (21-34) H 07/18/17 13:42 Assessment and Plan (1) Chronic congestive heart failure Status: Acute (2) Pleural effusion Status: Acute
== END 2017-07-22 18:00 | disposition home health service (06) | DRG 292 ==
LOC: C.ER 11:55 → C.5S 16:25 → C.9E 16:25 → C.5S 07-21 00:54
PROVIDERS: ADMIT Family Medicine; ATTEND Family Medicine
DX: I11.0 Hypertensive heart disease with heart failure (principal); I50.23 Acute on chronic systolic (congestive) heart failure; I42.0 Dilated cardiomyopathy; J90 Pleural effusion, not elsewhere classified; L97.929 Non-pressure chronic ulcer of unspecified part of left lower leg with unspecified severity; L97.919 Non-pressure chronic ulcer of unspecified part of right lower leg with unspecified severity; E78.00 Pure hypercholesterolemia, unspecified; I08.1 Rheumatic disorders of both mitral and tricuspid valves; I25.10 Atherosclerotic heart disease of native coronary artery without angina pectoris; K70.31 Alcoholic cirrhosis of liver with ascites; K86.89 Other specified diseases of pancreas; R73.02 Impaired glucose tolerance (oral); B95.62 Methicillin resistant Staphylococcus aureus infection as the cause of diseases classified elsewhere; B96.89 Other specified bacterial agents as the cause of diseases classified elsewhere; Z95.810 Presence of automatic (implantable) cardiac defibrillator; Z79.82 Long term (current) use of aspirin; Z91.81 History of falling; Z90.49 Acquired absence of other specified parts of digestive tract

== ENCOUNTER 2017-08-28 23:23 | Inpatient (IN) | payer MEDICARE, BC ==
[2017-08-28 23:23] VITALS: BMI 28.8
--- NOTE | 2017-08-29 00:18 | C.PDOC ---
History Of Present Illness Patient sent by Dr Jluis Rock for admission for bilateral lower leg cellulitis with open wounds. Patient states that he started with small pimple that gradually progressed to large open ulcerations of his legs. He was seen by his PMD and had a visiting nurse coming to his home to change the dressings. They have not shown up for several days. He was seen in the office today and referred to the ED with infected wounds. He denies associated fever or chills. His legs have been swollen since becoming infected. Patinet states that he has a history of CHF and has been gaining weight. He feels short of breath, worse on exertion.He has no chest pain. Time Seen by Provider: 08/28/17 23:42 Chief Complaint (Nursing): Abnormal Skin Integrity History Per: Patient History/Exam Limitations: no limitations Onset/Duration Of Symptoms: Days Quality Of Symptoms: Painful, Swollen, Draining Severity: Severe Past Medical History - Medical History PMH: Arthritis, CHF, Diabetes, HTN, Hypercholesterolemia Surgical History: Appendectomy, Pacemaker (pt states only defibrillator) - [employer] Procedures ASSISTANCE WITH RESPIRATORY VENTILATION, 24-96 HRS, CPAP (01/21/17) DRAINAGE OF LEFT PLEURAL CAVITY, PERCUTANEOUS APPROACH (02/02/17) DRAINAGE OF PERITONEAL CAVITY, PERCUTANEOUS APPROACH (03/05/17) DRAINAGE OF PERITONEAL CAVITY, PERCUTANEOUS APPROACH, DIAGN (04/26/16) DRAINAGE OF RIGHT PLEURAL CAVITY, PERCUTANEOUS APPROACH (03/05/17) EXCISION OF STOMACH, ENDO, DIAGN (11/03/16) FLUOROSCOPY OF SUP VENA CAVA USING L OSM CONTRAST, GUIDANCE (03/05/17) INSERTION OF INFUSION DEV INTO SUP VENA CAVA, PERC APPROACH (03/05/17) INSPECTION OF LOWER INTESTINAL TRACT, ENDO (11/03/16) TRANSFUSE NONAUT RED BLOOD CELLS IN PERIPH VEIN, PERC (01/21/17) ULTRASONOGRAPHY OF SUPERIOR VENA CAVA, GUIDANCE (03/05/17) Family History: States: Unknown Family Hx - Social History Hx Tobacco Use: No Hx Alcohol Use: Yes Hx Substance Use: No - Immunization History Hx Tetanus Toxoid Vaccination: Yes Hx Influenza Vaccination: Yes Hx Pneumococcal Vaccination: Yes Review Of Systems Constitutional: Negative for: Fever, Chills, Malaise Cardiovascular: Positive for: Edema (legs bilaterally) Skin: Positive for: Other (open weeping wounds on both lower legs) Physical Exam - Physical Exam Appears: No Acute Distress Skin: Normal Color, Warm, Other (wounds on both lower legs left worse than right. Foul smelling discharge covering the ulcerations) Lymphatic: No Adenopathy Chest: Symmetrical Cardiovascular: Rhythm Regular Respiratory: Normal Breath Sounds Extremity: Normal ROM, Tenderness (bilateral calf), Swelling (both lower legs) Pulses: Left Dorsalis Pedis: Normal, Right Dorsalis Pedis: Normal Neurological/Psych: Oriented x3, Normal Speech, Normal Cognition, Normal Motor, Normal Sensation ED Course And Treatment - Laboratory Results Result Diagrams: 08/29/17 00:05 Disposition - Disposition Disposition Time: 00:55 Condition: STABLE Forms: [facility] (Italian) - Clinical Impression Clinical Impression: Cellulitis, Chronic ulcer of lower extremity Physician Patient Turnover Patient Signed Over To: Ese Khalil Handoff Comments: Pending labs
[2017-08-29 00:32] LABS: BASO % 0.7 % (0.0-2.0); EOS # 0.1 K/uL (0.0-0.7); EOS % 1.3 % (0.0-4.0); HEMOGLOBIN 10.3 g/dL (12.0-18.0); LYMPH # 1.1 K/uL (1.0-4.3); LYMPH % 16.4 % (20.0-40.0); MEAN CELL VOLUME 85.6 fL (80.0-94.0); MEAN CORPUSCULAR HEMOGLOBIN 27.7 pg (27.0-31.0); MEAN CORPUSCULAR HGB CONC 32.4 g/dL (33.0-37.0); MEAN PLATELET VOLUME 7.8 fL (7.2-11.7); MONO # 1.1 K/uL (0.0-0.8); MONO % 16.1 % (0.0-10.0); NEUT # 4.3 K/uL (1.8-7.0); NEUT % 65.5 % (50.0-75.0); NRBC % 0.1 % (0.0-2.0); RBC 3.72 Mil/uL (4.40-5.90); RED CELL DISTRIBUTION WIDTH 16.7 % (11.5-14.5); WHITE BLOOD COUNT 6.6 K/uL (4.8-10.8)
[2017-08-29 00:52] LABS: ALBUMIN 4.1 g/dL (3.5-5.0); ALT/SGPT 16 U/L (21-72); AST/SGOT 24 U/L (17-59); BLOOD UREA NITROGEN 19 mg/dL (9-20); CALCIUM 8.6 mg/dl (8.6-10.4); GFR AFRICAN-AMERICAN > 60; GFR NON-AFRICAN AMERICAN > 60
[2017-08-29 01:00] LABS: B-TYPE NATRIURETIC PEPTIDE 4730 pg/mL (0-900)
[2017-08-29] MEDS ORDERED: Vancomycin 1 GM 1 GM/250 ML BAG IVPB STA (02:40)
[2017-08-29] MEDS ORDERED: Piperacillin/Tazobact 3.375 GM in Sodium Chloride 100 ML IVPB STA (02:40)
[2017-08-29] MEDS ORDERED: Piperacillin/Tazobact 3.375 gm 100 ML IVPB ONE (02:42)
--- NOTE | 2017-08-29 03:09 | CP.PCM.HP ---
<Nazia Stroud - Last Filed: 08/29/17 04:40> History of Present Illness - History of Present Illness History of Present Illness: CC: LE leg ulcers HPI Patient sent by [facility] for admission for bilateral lower leg cellulitis with leg ulcerations. Patient states that he started with small pimple that gradually progressed to large open ulcerations of his legs. Visiting nurse was sent to his home to change the dressings. Patient states they have not shown up for several days and that they told him it was getting better when they did see him. Patient states he went to [facility] ( [place]) in the office today and told him to come to the ED due to infection of his lower extremities. Patient denies fever, chills, nausea, vomiting, Patient states he has difficulty standing on his legs for long periods of time due to pain. Patient uses a walker to walk around. Patient admits to SOB and dyspnea on exertion. 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 Does not smoke, No drugs Drinks 1 glass of wine 3 times per week hx of 12 beers per day for 30 years many years ago Allergies: NKDA Present on Admission - Present on Admission Any Indicators Present on Admission: No History of DVT/PE: No History of Uncontrolled Diabetes: No Urinary Catheter: No Decubitus Ulcer Present: No Review of Systems - Review of Systems All systems: reviewed and no additional remarkable complaints except Past Patient History - Infectious Disease Hx of Infectious Diseases: None - Past Medical History & Family History Past Medical History?: Yes - Past Social History Smoking Status: Never Smoked - CARDIAC Hx Congestive Heart Failure: Yes Hx Hypercholesterolemia: Yes Hx Hypertension: Yes Hx Pacemaker: Yes (pt states only defibrillator) - PULMONARY Hx Respiratory Disorders: No - NEUROLOGICAL Hx Neurological Disorder: No - HEENT Hx HEENT Problems: No - RENAL Hx Chronic Kidney Disease: No - ENDOCRINE/METABOLIC Hx Diabetes Mellitus Type 2: Yes - HEMATOLOGICAL/ONCOLOGICAL Hx Blood Disorders: No - INTEGUMENTARY Hx Dermatological Problems: No - MUSCULOSKELETAL/RHEUMATOLOGICAL Hx Arthritis: Yes - GASTROINTESTINAL Hx Gastrointestinal Disorders: No - GENITOURINARY/GYNECOLOGICAL Hx Genitourinary Disorders: No - PSYCHIATRIC Hx Substance Use: No - SURGICAL HISTORY Hx Appendectomy: Yes - ANESTHESIA Hx Anesthesia: Yes Hx Anesthesia Reactions: No Meds Allergies/Adverse Reactions: Allergies Allergy/AdvReac Type Severity Reaction Status Date / Time No Known Allergies Allergy Verified 08/28/17 23:32 Physical Exam - Constitutional Appears: No Acute Distress, Unkempt - Head Exam Head Exam: ATRAUMATIC, NORMAL INSPECTION, NORMOCEPHALIC - Eye Exam Eye Exam: EOMI, Normal appearance Pupil Exam: NORMAL ACCOMODATION, PERRL - ENT Exam ENT Exam: Mucous Membranes Moist - Neck Exam Neck exam: Positive for: Full Rom. Negative for: Tenderness, Thyromegaly - Respiratory Exam Respiratory Exam: NORMAL BREATHING PATTERN. absent: Accessory Muscle Use - Cardiovascular Exam Cardiovascular Exam: REGULAR RHYTHM, +S1, +S2. absent: Tachycardia - GI/Abdominal Exam GI & Abdominal Exam: Normal Bowel Sounds, Soft - Extremities Exam Extremities exam: Positive for: pedal edema Additional comments: mild pitting edema right lower extremity posterior ulcerations left lower extremity anterior tibial ulcerations irregular borders. weeping wound on left lower extremity anterior tibial ulceration. pain on palpation near wound site - Neurological Exam Neurological exam: Alert, CN II-XII Intact - Psychiatric Exam Psychiatric exam: Normal Affect, Normal Mood - Skin Skin Exam: Warm Results - Labs Result Diagrams: 08/29/17 00:05 08/29/17 00:05 Labs: Laboratory Results - last 24 hr 08/29/17 08/29/17 00:05 00:05 WBC 6.6 RBC 3.72 L Hgb 10.3 L Hct 31.8 L MCV 85.6 MCH 27.7 MCHC 32.4 L RDW 16.7 H Plt Count 209 MPV 7.8 Neut % (Auto) 65.5 Lymph % (Auto) 16.4 L [place]oca % (Auto) 16.1 H Eos % (Auto) 1.3 Baso % (Auto) 0.7 Neut # (Auto) 4.3 Lymph # (Auto) 1.1 Moca # (Auto) 1.1 H Eos # (Auto) 0.1 Baso # (Auto) 0.0 Sodium 139 Potassium 4.6 Chloride 101 Carbon Dioxide 27 Anion Gap 16 BUN 19 Creatinine 1.1 Est GFR ( Amer) > 60 Est GFR (Non-Af Amer) > 60 Random Glucose 109 Calcium 8.6 Total Bilirubin 1.0 AST 24 ALT 16 L D Alkaline Phosphatase 119 NT-Pro-B Natriuret Pep 4730 H Total Protein 8.4 H Albumin 4.1 Globulin 4.3 H Albumin/Globulin Ratio 1.0 Assessment & Plan - Assessment and Plan (Free Text) Assessment: LE leg ulceration with mild edema f/u wound culture wound care on board instructions for wash with warm water and soap, dry pat, bacitracin and non- adhesive dressing and wrap until further management by wound care nurse. in ER: Vancomycin 1 gm IVPB, Zosyn 3.375gm CHF Echo 07/2017 10-20% grade III diastolic dysfunction Entresto 24mg-26mg tab PO BID Coreg 3.125 mg PO BID lasix 40mg IVP BID Liver cirrhosis with ascites and history of multiple paracentesis/thoracentesis from effusion history of ETOH abuse Lasix 40mg IVP BID Aldactone 100 mg PO QD DM history/IGT hypoglycemic protocol Diet: heart healthy carb consistent diet accucheck ACHS Prophylaxis SCD contraindicated due to leg ulcerations Heparin [address] Jhonny Mandujano Eng DO PGY1 - Date & Time Date: 08/29/17 Time: 03:36 <Tim Barry P - Last Filed: 08/29/17 07:10> Results - Vital Signs Recent Vital Signs: Last Vital Signs Temp 98.3 F 08/29/17 05:49 Pulse 78 08/29/17 05:49 Resp 22 08/29/17 05:49 BP 149/79 08/29/17 05:49 Pulse Ox 98 08/29/17 05:49 - Labs Result Diagrams: 08/29/17 00:05 08/29/17 00:05 Labs: Laboratory Results - last 24 hr 08/29/17 08/29/17 08/29/17 00:05 00:05 03:06 WBC 6.6 RBC 3.72 L Hgb 10.3 L Hct 31.8 L MCV 85.6 MCH 27.7 MCHC 32.4 L RDW 16.7 H Plt Count 209 MPV 7.8 Neut % (Auto) 65.5 Lymph % (Auto) 16.4 L [place] % (Auto) 16.1 H Eos % (Auto) 1.3 Baso % (Auto) 0.7 Neut # (Auto) 4.3 Lymph # (Auto) 1.1 [place] # (Auto) 1.1 H Eos # (Auto) 0.1 Baso # (Auto) 0.0 PT INR APTT Sodium 139 Potassium 4.6 Chloride 101 Carbon Dioxide 27 Anion Gap 16 BUN 19 Creatinine 1.1 Est GFR ( Amer) > 60 Est GFR (Non-Af Amer) > 60 POC Glucose (mg/dL) Random Glucose 109 Calcium 8.6 Total Bilirubin 1.0 AST 24 ALT 16 L D Alkaline Phosphatase 119 NT-Pro-B Natriuret Pep 4730 H Total Protein 8.4 H Albumin 4.1 Globulin 4.3 H Albumin/Globulin Ratio 1.0 Alcohol, Quantitative < 10 08/29/17 08/29/17 03:32 04:33 WBC RBC Hgb Hct MCV MCH MCHC RDW Plt Count MPV Neut % (Auto) Lymph % (Auto) Moca % (Auto) Eos % (Auto) Baso % (Auto) Neut # (Auto) Lymph # (Auto) [place] # (Auto) Eos # (Auto) Baso # (Auto) PT 15.3 H INR 1.4 APTT 36 H Sodium Potassium Chloride Carbon Dioxide Anion Gap BUN Creatinine Est GFR ( Amer) Est GFR (Non-Af Amer) POC Glucose (mg/dL) 117 H Random Glucose Calcium Total Bilirubin AST ALT Alkaline Phosphatase NT-Pro-B Natriuret Pep Total Protein Albumin Globulin Albumin/Globulin Ratio Alcohol, Quantitative Attending/Attestation - Attestation I have personally seen and examined this patient.: Yes I have fully participated in the care of the patient.: Yes I have reviewed all pertinent clinical information: Yes Notes (Text): 08/29/17 06:57 B/l lower extremity ulcers with secondary infection, precipitated from chronic swelling, edematous oozing skin and poor care of recent small skin breaks. Systolic CHF cardiomyopathy s/p aicd, compliant with meds h/o liver cirrhosis Glucose intolerance. Plan Aggressive control of edema, elevation of legs, wound cleansing, wound care, possibly hal boots, rocephin and doxycycline started. Continue home meds Gi/dvt prophylaxis See orders for detail.
[2017-08-29] MEDS ORDERED: Piperacillin/Tazobact 3.375 GM in Sodium Chloride 100 ML IVPB SCH (03:15)
[2017-08-29] MEDS ORDERED: Glucagon Recombinant 1 mg Inj IM PRN (03:34)
[2017-08-29] MEDS ORDERED: Dextrose 50% SYRINGE Inj (50 ml) IV STA (03:40)
[2017-08-29 03:41] LABS: INR 1.4; PROTHROMBIN TIME 15.3 SECONDS (9.7-12.2)
[2017-08-29] MEDS ORDERED: Vancomycin 1 gm/NS 200 ml 1 GM/200 ML BAG IVPB SCH (03:45)
--- NOTE | 2017-08-29 07:42 | CP.PCM.PN ---
<Pat Jj - Last Filed: 08/29/17 13:45> Subjective - Date & Time of Evaluation Date of Evaluation: 08/29/17 Time of Evaluation: 07:41 - Subjective Subjective: Medicine progress note for Dr. Lesia Mahajan Patient was seen and examined at bedside in no acute distress. Patient reports having pain and swelling in both legs for the past 2 months, but has worsens recently. Patient denies chest pain, abdominal pain, dyspnea, nausea, vomiting, fevers, headaches, dysuria, constipation, diarrhea. Objective - Vital Signs/Intake and Output Vital Signs (last 24 hours): Temp Pulse Resp BP Pulse Ox 97.9 F 81 19 149/88 97 08/29/17 07:15 08/29/17 07:15 08/29/17 07:15 08/29/17 07:15 08/29/17 07:15 - Medications Medications: Current Medications Aspirin (Aspirin Chewable) 81 mg PO DAILY [facility] Carvedilol (Coreg) 3.125 mg PO BID [facility] Dextrose (Glutose 15) 0 gm PO ONCE PRN; Protocol PRN Reason: Hypoglycemia Protocol Furosemide (Lasix) 40 mg IVP BID [facility] Glucagon (Glucagen Diagnostic Kit) 0 mg IM STAT PRN; Protocol PRN Reason: Hypoglycemia Protocol Heparin Sodium (Porcine) (Heparin) 5,000 units SC Q8 [facility] Last Admin: 08/29/17 06:39 Dose: 5,000 units Dextrose (Dextrose 5% In Water 1000 Ml) 1,000 mls @ 0 mls/hr IV .Q0M PRN; Protocol; Per Protocol PRN Reason: Hypoglycemia Protocol Ceftriaxone Sodium 1 gm/ (Sodium Chloride) 100 mls @ 100 mls/hr IVPB DAILY [facility] PRN Reason: Protocol Doxycycline Hyclate 100 mg/ (Sodium Chloride) 100 mls @ 100 mls/hr IVPB Q12H [facility] PRN Reason: Protocol Sacubitril/Valsartan (Entresto 24 Mg-26 Mg) 1 tab PO BID [facility] Spironolactone (Aldactone) 100 mg PO DAILY [facility] - Labs Labs: 08/29/17 00:05 08/29/17 00:05 PT 15.3 SECONDS (9.7-12.2) H 08/29/17 03:32 INR 1.4 08/29/17 03:32 APTT 36 SECONDS (21-34) H 08/29/17 03:32 - Constitutional Appears: No Acute Distress - Head Exam Head Exam: ATRAUMATIC, NORMAL INSPECTION - Eye Exam Eye Exam: EOMI, Normal appearance - ENT Exam ENT Exam: Mucous Membranes Moist - Respiratory Exam Respiratory Exam: NORMAL BREATHING PATTERN. absent: Rales, Rhonchi, Wheezes, Respiratory Distress - Cardiovascular Exam Cardiovascular Exam: +S1, +S2 - GI/Abdominal Exam GI & Abdominal Exam: Firm (protuberant, obese), Normal Bowel Sounds. absent: Tenderness - Extremities Exam Extremities Exam: Pedal Edema (b/l), Tenderness (b/l). absent: Normal Inspection Additional comments: venous stasis ulcers b/l: LLE- ucler on anterior tibia; RLE- ulcer noted on lower posterior calf - Neurological Exam Neurological Exam: Alert, Awake, Oriented x3 - Psychiatric Exam Psychiatric exam: Normal Affect, Normal Mood - Skin Skin Exam: Warm. absent: Intact (venous stasis ulcers b/l: LLE- ucler on anterior tibia; RLE- ulcer noted on lower posterior calf) Assessment and Plan (1) Cellulitis Assessment & Plan: History of chronic venous stasis and ulcers * Wound culture: f/u * Blood cx: f/u * Venous dopplers: f/u * Consulted wound care * Consulted Podiatry (Dr. Montoya) for ulysses boots, help appreciated Medications/Management * In ER: Vancomycin 1 gm IVPB, Zosyn 3.375gm was given * Rocephin 1gm IV Q24h * [id number] IV Q12h Note: instructions for wash with warm water and soap, dry pat, bacitracin and non-adhesive dressing and wrap until further management by wound care nurse. Status: Acute (2) CHF (congestive heart failure) Assessment & Plan: Echo 07/2017: 10-20% grade III diastolic dysfunction Medications: * Entresto 24mg-26mg tab PO BID * Coreg 3.125 mg PO BID * Lasix 40mg IVP BID Status: Chronic (3) DM2 (diabetes mellitus, type 2) Assessment & Plan: Hypoglycemic protocol ISS Accucheck ACHS Diet: heart healthy carb consistent diet Status: Chronic (4) Liver cirrhosis Assessment & Plan: Liver cirrhosis with ascites and history of multiple paracentesis/thoracentesis from effusion History of ETOH abuse Medications: * Lasix 40mg IVP BID * Aldactone 100 mg PO QD Status: Chronic (5) Prophylactic measure Assessment & Plan: SCD contraindicated due to leg ulcerations Heparin 5000 SC Q8H Status: Resolved <Abimael Mahajan - Last Filed: 08/30/17 19:46> Objective - Vital Signs/Intake and Output Vital Signs (last 24 hours): Temp Pulse Resp BP Pulse Ox 97.5 F L 92 H 20 126/72 94 L 08/30/17 15:00 08/30/17 16:00 08/30/17 15:00 08/30/17 17:18 08/30/17 15:00 - Medications Medications: Current Medications Aspirin (Aspirin Chewable) 81 mg PO DAILY [facility] Last Admin: 08/30/17 09:46 Dose: 81 mg Carvedilol (Coreg) 3.125 mg PO BID [facility] Last Admin: 08/30/17 17:18 Dose: 3.125 mg Dextrose (Glutose 15) 0 gm PO ONCE PRN; Protocol PRN Reason: Hypoglycemia Protocol Furosemide (Lasix) 40 mg IVP BID [facility] Last Admin: 08/30/17 17:18 Dose: 40 mg Glucagon (Glucagen Diagnostic Kit) 0 mg IM STAT PRN; Protocol PRN Reason: Hypoglycemia Protocol Heparin Sodium (Porcine) (Heparin) 5,000 units SC Q8 [facility] Last Admin: 08/30/17 15:00 Dose: Not Given Dextrose (Dextrose 5% In Water 1000 Ml) 1,000 mls @ 0 mls/hr IV .Q0M PRN; Protocol; Per Protocol PRN Reason: Hypoglycemia Protocol Ceftriaxone Sodium 1 gm/ (Sodium Chloride) 100 mls @ 100 mls/hr IVPB DAILY [facility] PRN Reason: Protocol Last Admin: 08/30/17 10:55 Dose: 100 mls/hr Doxycycline Hyclate 100 mg/ (Sodium Chloride) 100 mls @ 100 mls/hr IVPB Q12H [facility] PRN Reason: Protocol Last Admin: 08/30/17 09:46 Dose: 100 mls/hr Insulin Human Regular (Novolin R) 0 unit SC ACHS [facility] PRN Reason: Protocol Last Admin: 08/30/17 16:54 Dose: Not Given Sacubitril/Valsartan (Entresto 24 Mg-26 Mg) 1 tab PO BID [facility] Last Admin: 08/30/17 17:18 Dose: 1 tab Spironolactone (Aldactone) 100 mg PO DAILY [facility] Last Admin: 08/30/17 09:46 Dose: 100 mg - Labs Labs: 08/30/17 08:21 08/30/17 08:21 PT 15.3 SECONDS (9.7-12.2) H 08/29/17 03:32 INR 1.4 08/29/17 03:32 APTT 36 SECONDS (21-34) H 08/29/17 03:32 Attending/Attestation - Attestation I have personally seen and examined this patient.: Yes I have fully participated in the care of the patient.: Yes I have reviewed all pertinent clinical information, including history, physical exam and plan: Yes Notes (Text): 08/30/17 19:46 Patient was seen and examined shortly after resident. Exam, assessment and plan were discussed with Dr. Carlotta Montalvo. Abimael Mahajan D.O.
[2017-08-29 08:31] VITALS: RESP 20
[2017-08-29] MEDS: Sacubitril/Valsartan 24-26mg Tab PO SCH ×2 (10:00→18:08)
--- NOTE | 2017-08-29 14:52 | CP.PCM.CON ---
History of Present Illness - History of Present Illness History of Present Illness: Podiatry Consult Note- Dr. Montoya. 67 year old male ramona t bedside concerning now onset leg ulcers. Patient reports having pain and swelling in both legs for the past 2 months, but has worsened recently. Patient states that left side ulcer started as small pimple he scratched, which gradually progressed to large open ulcerations of his leg. Righ side had no noted inciting incident. Patient uses a walker to walk around. Pt has no other pedal complaints. Patient denies chest pain, abdominal pain, dyspnea, nausea, vomiting, fevers, headaches, dysuria, constipation, diarrhea. 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 Does not smoke, No drugs Drinks 1 glass of wine 3 times per week hx of 12 beers per day for 30 years many years ago Past Patient History - Infectious Disease Hx of Infectious Diseases: None - Past Medical History & Family History Past Medical History?: Yes - Past Social History Smoking Status: Former Smoker - CARDIAC Hx Congestive Heart Failure: Yes Hx Hypercholesterolemia: Yes Hx Hypertension: Yes Hx Pacemaker: Yes (pt states only defibrillator) - PULMONARY Hx Respiratory Disorders: No - NEUROLOGICAL Hx Neurological Disorder: No - HEENT Hx HEENT Problems: No - RENAL Hx Chronic Kidney Disease: No - ENDOCRINE/METABOLIC Hx Diabetes Mellitus Type 2: Yes - HEMATOLOGICAL/ONCOLOGICAL Hx Blood Disorders: No - INTEGUMENTARY Hx Dermatological Problems: No - MUSCULOSKELETAL/RHEUMATOLOGICAL Hx Falls: Yes - GASTROINTESTINAL Hx Gastrointestinal Disorders: No - GENITOURINARY/GYNECOLOGICAL Hx Genitourinary Disorders: No - PSYCHIATRIC Hx Substance Use: No - SURGICAL HISTORY Hx Appendectomy: Yes - ANESTHESIA Hx Anesthesia: Yes Hx Anesthesia Reactions: No Hx Malignant Hyperthermia: No Has any member of the family had a problem w/ anesthesia?: No Meds Allergies/Adverse Reactions: Allergies Allergy/AdvReac Type Severity Reaction Status Date / Time No Known Allergies Allergy Verified 08/28/17 23:32 - Medications Medications: Current Medications Aspirin (Aspirin Chewable) 81 mg PO DAILY [facility] Last Admin: 08/29/17 09:59 Dose: 81 mg Carvedilol (Coreg) 3.125 mg PO BID [facility] Last Admin: 08/29/17 09:59 Dose: 3.125 mg Dextrose (Glutose 15) 0 gm PO ONCE PRN; Protocol PRN Reason: Hypoglycemia Protocol Furosemide (Lasix) 40 mg IVP BID [facility] Last Admin: 08/29/17 09:59 Dose: 40 mg Glucagon (Glucagen Diagnostic Kit) 0 mg IM STAT PRN; Protocol PRN Reason: Hypoglycemia Protocol Heparin Sodium (Porcine) (Heparin) 5,000 units SC Q8 [facility] Last Admin: 08/29/17 13:54 Dose: 5,000 units Dextrose (Dextrose 5% In Water 1000 Ml) 1,000 mls @ 0 mls/hr IV .Q0M PRN; Protocol; Per Protocol PRN Reason: Hypoglycemia Protocol Ceftriaxone Sodium 1 gm/ (Sodium Chloride) 100 mls @ 100 mls/hr IVPB DAILY [facility] PRN Reason: Protocol Doxycycline Hyclate 100 mg/ (Sodium Chloride) 100 mls @ 100 mls/hr IVPB Q12H [facility] PRN Reason: Protocol Insulin Human Regular (Novolin R) 0 unit SC ACHS [facility] PRN Reason: Protocol Sacubitril/Valsartan (Entresto 24 Mg-26 Mg) 1 tab PO BID [facility] Last Admin: 08/29/17 10:00 Dose: 1 tab Spironolactone (Aldactone) 100 mg PO DAILY [facility] Last Admin: 08/29/17 10:18 Dose: 100 mg Physical Exam - Constitutional Appears: Well, Non-toxic, No Acute Distress - Extremities Exam Additional comments: Lower extremity focused. Dressings, clean, dry, and intact. VASC: DP and PT pulses weakly palpable. +2 pitting edema noted to bilateral lower legs. [place] to all 10 digits <3 seconds. NEURO: Protective sensation grossly diminished to level of midfoot, bilaterally. DERM: Bilateral xerosis noted to anterior leg and dorsal midfoot. RIGHT: Posterior ankle superficial ulceration with fibro-granular base measuring 3 x 1.3 cm with active serous drainage noted. Absent john-wound maceration or undermining. No mal-odor or purulence noted. Abesnt acute signs of infection. LEFT: Anterior leg ulcer superficial ulceration with granular bases noted to middle 1/3 along anterior margin. Proximal ulcer approx. 1.8 cm in diameter, distal approx. 3cm in diameter. Both are absent john-wound maceration or undermining. No mal-odor or purulence noted. Absent acute signs of infection. Tender to palpation. MUSK: Pedal muscle strength in lower leg and pedal muscle groups all graded 5/ 5. Limited ankle joint ROM absent crepitus. - Neurological Exam Neurological exam: Alert, Oriented x3 - Psychiatric Exam Psychiatric exam: Normal Affect, Normal Mood Results - Vital Signs Recent Vital Signs: Last Vital Signs Temp 97.7 F 08/29/17 08:15 Pulse 75 08/29/17 08:30 Resp 20 08/29/17 08:15 BP 126/69 08/29/17 09:59 Pulse Ox 96 08/29/17 08:15 - Labs Result Diagrams: 08/29/17 00:05 08/29/17 00:05 Labs: Laboratory Results - last 24 hr 08/29/17 08/29/17 08/29/17 00:05 00:05 03:06 WBC 6.6 RBC 3.72 L Hgb 10.3 L Hct 31.8 L MCV 85.6 MCH 27.7 MCHC 32.4 L RDW 16.7 H Plt Count 209 MPV 7.8 Neut % (Auto) 65.5 Lymph % (Auto) 16.4 L [place] % (Auto) 16.1 H Eos % (Auto) 1.3 Baso % (Auto) 0.7 Neut # (Auto) 4.3 Lymph # (Auto) 1.1 [place] # (Auto) 1.1 H Eos # (Auto) 0.1 Baso # (Auto) 0.0 PT INR APTT Sodium 139 Potassium 4.6 Chloride 101 Carbon Dioxide 27 Anion Gap 16 BUN 19 Creatinine 1.1 Est GFR ( Amer) > 60 Est GFR (Non-Af Amer) > 60 POC Glucose (mg/dL) Random Glucose 109 Calcium 8.6 Total Bilirubin 1.0 AST 24 ALT 16 L D Alkaline Phosphatase 119 NT-Pro-B Natriuret Pep 4730 H Total Protein 8.4 H Albumin 4.1 Globulin 4.3 H Albumin/Globulin Ratio 1.0 Alcohol, Quantitative < 10 08/29/17 08/29/17 03:32 04:33 WBC RBC Hgb Hct MCV MCH MCHC RDW Plt Count MPV Neut % (Auto) Lymph % (Auto) [place] % (Auto) Eos % (Auto) Baso % (Auto) Neut # (Auto) Lymph # (Auto) [place] # (Auto) Eos # (Auto) Baso # (Auto) PT 15.3 H INR 1.4 APTT 36 H Sodium Potassium Chloride Carbon Dioxide Anion Gap BUN Creatinine Est GFR ( Amer) Est GFR (Non-Af Amer) POC Glucose (mg/dL) 117 H Random Glucose Calcium Total Bilirubin AST ALT Alkaline Phosphatase NT-Pro-B Natriuret Pep Total Protein Albumin Globulin Albumin/Globulin Ratio Alcohol, Quantitative Assessment & Plan - Assessment and Plan (Free Text) Assessment: 67 year odl male with bilateral lef venous stasis ulcerations secondary to CHF. Plan: Pt seen and evaluated with attending, Dr. Montoya. Chart, labs, and vitals reviewed. Afebrile, absent leukocytosis. Venous Duplex -pending. Wound culture- pending Continue IV abx per ID recommendations. Continue local wound care. Cleansed site with saline, dressed with xeroform, DSD , and JUANITA Podiatry will continue to follow while inhouse. - Date & Time Date: 08/29/17 Time: 10:20
--- NOTE | 2017-08-29 17:14 | RAD ---
PROCEDURE: Radiographs of the bilateral Tibiae and Fibulae. HISTORY: r/o elevation and/or destruction of periosteum. COMPARISON: None available. TECHNIQUE: Frontal and lateral views obtained. FINDINGS: BONES: RIGHT TIBIA: No fracture or destructive lesion. LEFT TIBIA: No fracture or destructive lesion. JOINT SPACES: RIGHT TIBIA: Normal. LEFT TIBIA: Normal. SOFT TISSUES: RIGHT TIBIA: Normal. LEFT TIBIA: Normal. OTHER FINDINGS: Atherosclerotic vascular calcifications present. . IMPRESSION: Degenerative changes of each knee. No fracture or lytic lesions. . No periosteal reaction. Atherosclerotic vascular calcifications present. .
[2017-08-29] MEDS: (Novolin R) Insulin Human Regular 100 units/ml vial SC SCH ×2 (18:14→22:24)
[2017-08-30] MEDS: (Novolin R) Insulin Human Regular 100 units/ml vial SC SCH ×4 (07:32→22:40)
[2017-08-30 08:30] LABS: BASO % 0.2 % (0.0-2.0); EOS # 0.1 K/uL (0.0-0.7); EOS % 1.9 % (0.0-4.0); HEMOGLOBIN 11.2 g/dL (12.0-18.0); LYMPH % 13.2 % (20.0-40.0); MEAN CORPUSCULAR HEMOGLOBIN 27.6 pg (27.0-31.0); MEAN CORPUSCULAR HGB CONC 32.1 g/dL (33.0-37.0); MONO # 1.2 K/uL (0.0-0.8); MONO % 16.1 % (0.0-10.0); NEUT # 5.2 K/uL (1.8-7.0); NEUT % 68.6 % (50.0-75.0); NRBC % 0.1 % (0.0-2.0); RBC 4.05 Mil/uL (4.40-5.90); RED CELL DISTRIBUTION WIDTH 16.9 % (11.5-14.5); WHITE BLOOD COUNT 7.5 K/uL (4.8-10.8)
[2017-08-30 08:47] LABS: ALB/GLOB RATIO 0.8 (1.0-2.1); ALBUMIN 3.7 g/dL (3.5-5.0); ALT/SGPT 13 U/L (21-72); AST/SGOT 23 U/L (17-59); BLOOD UREA NITROGEN 20 mg/dL (9-20); CALCIUM 8.7 mg/dl (8.6-10.4); GFR AFRICAN-AMERICAN > 60; GFR NON-AFRICAN AMERICAN > 60
[2017-08-30] MEDS: Sacubitril/Valsartan 24-26mg Tab PO SCH ×2 (09:46→17:18)
--- NOTE | 2017-08-30 11:35 | VASCLAB ---
PROCEDURE: Lower Extremity Venous Duplex Exam. HISTORY: Edematous, painful LE PRIORS: None. TECHNIQUE: Bilateral common femoral, femoral, popliteal and posterior tibial, peroneal and great saphenous veins were evaluated. Flow was assessed with color Doppler, compressibility, assessment of phasic flow and augmentation response. Report prepared by RENETTA Ambrocio FINDINGS: RIGHT: 1. Common Femoral Vein: 1.1. Compressibility - Fully compressible: Thrombus - None : Flow - Phasic: Augmentation -Normal: Reflux - None. 2. Femoral Vein: 2.1. Compressibility - Fully compressible: Thrombus - None : Flow - Phasic: Augmentation -Normal: Reflux - None. 3. Popliteal Vein: 3.1. Compressibility - Fully compressible: Thrombus - None : Flow - Phasic: Augmentation -Normal: Reflux - None. 4. Posterior Tibial Vein: 4.1. Compressibility - Fully compressible: Thrombus - None: Flow - Phasic: Augmentation -Normal: Reflux - None. 5. Peroneal Vein: 6. Great Saphenous Vein: 6.1. Compressibility - Fully compressible: Thrombus - None: Flow - Phasic: Augmentation - Normal: Reflux - None. LEFT: 1. Common Femoral Vein: 1.1. Compressibility - Fully compressible: Thrombus - None: Flow - Phasic: Augmentation -Normal: Reflux - None. 2. Femoral Vein: 2.1. Compressibility - Fully compressible: Thrombus - None: Flow - Phasic: Augmentation -Normal: Reflux - None. 3. Popliteal Vein: 3.1. Compressibility - Fully compressible: Thrombus - None : Flow - Phasic: Augmentation -Normal: Reflux - None. 4. Posterior Tibial Vein: 5. Peroneal Vein: 6. Great Saphenous Vein: 6.1. Compressibility - Fully compressible: Thrombus - None: Flow - Phasic: Augmentation - Normal: Reflux - None. OTHER FINDINGS: Right: Peroneal veins were not visualized due to swelling. Left: Posterior tibial and peroneal veins were not visualized due to swelling. IMPRESSION: No evidence of venous thrombosis for the examined veins, in bilateral lower extremities.
--- NOTE | 2017-08-30 12:58 | CP.PCM.PN ---
Addendum entered and electronically signed by Pat Jj 08/30/17 13:34 : (2) Acute on Chronic systolic dysfunction, CHF (congestive heart failure) Assessment & Plan: Echo 07/2017: 10-20% grade III diastolic dysfunction Medications: * Entresto 24mg-26mg tab PO BID * Coreg 3.125 mg PO BID * Lasix 40mg IVP BID Original Note: <Pat Jj - Last Filed: 08/30/17 12:50> Subjective - Date & Time of Evaluation Date of Evaluation: 08/30/17 Time of Evaluation: 12:51 - Subjective Subjective: Medicine progress note for Dr. Lesia Mahajan Patient was seen and examined at bedside in no acute distress. Patient reports still having pain, however, swelling has decreased. Patient denies chest pain, abdominal pain, dyspnea, nausea, vomiting, fevers, headaches, dysuria, constipation, diarrhea. No acute events overnight. Objective - Vital Signs/Intake and Output Vital Signs (last 24 hours): Temp Pulse Resp BP Pulse Ox 98.0 F 73 20 113/67 96 08/30/17 07:00 08/30/17 08:00 08/30/17 07:00 08/30/17 09:47 08/30/17 07:00 - Medications Medications: Current Medications Aspirin (Aspirin Chewable) 81 mg PO DAILY [facility] Last Admin: 08/30/17 09:46 Dose: 81 mg Carvedilol (Coreg) 3.125 mg PO BID [facility] Last Admin: 08/30/17 09:46 Dose: 3.125 mg Dextrose (Glutose 15) 0 gm PO ONCE PRN; Protocol PRN Reason: Hypoglycemia Protocol Furosemide (Lasix) 40 mg IVP BID [facility] Last Admin: 08/30/17 09:47 Dose: 40 mg Glucagon (Glucagen Diagnostic Kit) 0 mg IM STAT PRN; Protocol PRN Reason: Hypoglycemia Protocol Heparin Sodium (Porcine) (Heparin) 5,000 units SC Q8 [facility] Last Admin: 08/30/17 06:09 Dose: 5,000 units Dextrose (Dextrose 5% In Water 1000 Ml) 1,000 mls @ 0 mls/hr IV .Q0M PRN; Protocol; Per Protocol PRN Reason: Hypoglycemia Protocol Ceftriaxone Sodium 1 gm/ (Sodium Chloride) 100 mls @ 100 mls/hr IVPB DAILY [facility] PRN Reason: Protocol Last Admin: 08/30/17 10:55 Dose: 100 mls/hr Doxycycline Hyclate 100 mg/ (Sodium Chloride) 100 mls @ 100 mls/hr IVPB Q12H [facility] PRN Reason: Protocol Last Admin: 08/30/17 09:46 Dose: 100 mls/hr Insulin Human Regular (Novolin R) 0 unit SC ACHS [facility] PRN Reason: Protocol Last Admin: 08/30/17 12:29 Dose: 3 u Sacubitril/Valsartan (Entresto 24 Mg-26 Mg) 1 tab PO BID [facility] Last Admin: 08/30/17 09:46 Dose: 1 tab Spironolactone (Aldactone) 100 mg PO DAILY [facility] Last Admin: 08/30/17 09:46 Dose: 100 mg - Labs Labs: 08/30/17 08:21 08/30/17 08:21 PT 15.3 SECONDS (9.7-12.2) H 08/29/17 03:32 INR 1.4 08/29/17 03:32 APTT 36 SECONDS (21-34) H 08/29/17 03:32 - Additional Findings Additional findings: - Constitutional Appears: No Acute Distress - Head Exam Head Exam: ATRAUMATIC, NORMAL INSPECTION - Eye Exam Eye Exam: EOMI, Normal appearance - ENT Exam ENT Exam: Mucous Membranes Moist - Respiratory Exam Respiratory Exam: NORMAL BREATHING PATTERN. absent: Rales, Rhonchi, Wheezes, Respiratory Distress - Cardiovascular Exam Cardiovascular Exam: +S1, +S2 - GI/Abdominal Exam GI & Abdominal Exam: Firm (protuberant, obese), Normal Bowel Sounds. absent: Tenderness - Extremities Exam Extremities Exam: Pedal Edema (b/l), Tenderness (b/l). absent: Normal Inspection Additional comments: venous stasis ulcers b/l: LLE- ucler on anterior tibia; RLE - ulcer noted on lower posterior calf; no purulent drainage,erythema - Neurological Exam Neurological Exam: Alert, Awake, Oriented x3 - Psychiatric Exam Psychiatric exam: Normal Affect, Normal Mood - Skin Skin Exam: Warm. absent: Intact (venous stasis ulcers b/l: LLE- ucler on anterior tibia; RLE- ulcer noted on lower posterior calf) Assessment and Plan (1) Cellulitis Status: Acute (2) CHF (congestive heart failure) Status: Chronic (3) DM2 (diabetes mellitus, type 2) Status: Chronic (4) Liver cirrhosis Status: Chronic (5) Prophylactic measure Status: Resolved - Assessment and Plan (Free Text) Plan: (1) Cellulitis Assessment & Plan: History of chronic venous stasis and ulcers * Wound culture: gram negative rods * Blood cx: negative * Venous dopplers: f/u * Consulted wound care * Consulted Podiatry (Dr. Montoya) for ulysses boots, help appreciated * Unna boots placed on 08/30/17 Medications/Management * In ER: Vancomycin 1 gm IVPB, Zosyn 3.375gm was given * Rocephin 1gm IV Q24h * [id number] IV Q12h (2) CHF (congestive heart failure) Assessment & Plan: Echo 07/2017: 10-20% grade III diastolic dysfunction Medications: * Entresto 24mg-26mg tab PO BID * Coreg 3.125 mg PO BID * Lasix 40mg IVP BID (3) DM2 (diabetes mellitus, type 2) Assessment & Plan: Hypoglycemic protocol ISS Accucheck ACHS Diet: heart healthy carb consistent diet (4) Liver cirrhosis Assessment & Plan: Liver cirrhosis with ascites and history of multiple paracentesis/thoracentesis from effusion History of ETOH abuse Medications: * Lasix 40mg IVP BID * Aldactone 100 mg PO QD (5) Prophylactic measure Assessment & Plan: SCD contraindicated due to leg ulcerations Heparin 5000 SC Q8H Disposition: Patient is scheduled for follow up appointment at [facility] with Dr. Montoya on 09/04/17 at 1:15 to change dressing/ unna boot. <Abimael Mahajan - Last Filed: 08/30/17 19:45> Objective - Vital Signs/Intake and Output Vital Signs (last 24 hours): Temp Pulse Resp BP Pulse Ox 97.5 F L 92 H 20 126/72 94 L 08/30/17 15:00 08/30/17 16:00 08/30/17 15:00 08/30/17 17:18 08/30/17 15:00 - Medications Medications: Current Medications Aspirin (Aspirin Chewable) 81 mg PO DAILY [facility] Last Admin: 08/30/17 09:46 Dose: 81 mg Carvedilol (Coreg) 3.125 mg PO BID [facility] Last Admin: 08/30/17 17:18 Dose: 3.125 mg Dextrose (Glutose 15) 0 gm PO ONCE PRN; Protocol PRN Reason: Hypoglycemia Protocol Furosemide (Lasix) 40 mg IVP BID [facility] Last Admin: 08/30/17 17:18 Dose: 40 mg Glucagon (Glucagen Diagnostic Kit) 0 mg IM STAT PRN; Protocol PRN Reason: Hypoglycemia Protocol Heparin Sodium (Porcine) (Heparin) 5,000 units SC Q8 [facility] Last Admin: 08/30/17 15:00 Dose: Not Given Dextrose (Dextrose 5% In Water 1000 Ml) 1,000 mls @ 0 mls/hr IV .Q0M PRN; Protocol; Per Protocol PRN Reason: Hypoglycemia Protocol Ceftriaxone Sodium 1 gm/ (Sodium Chloride) 100 mls @ 100 mls/hr IVPB DAILY [facility] PRN Reason: Protocol Last Admin: 08/30/17 10:55 Dose: 100 mls/hr Doxycycline Hyclate 100 mg/ (Sodium Chloride) 100 mls @ 100 mls/hr IVPB Q12H [facility] PRN Reason: Protocol Last Admin: 08/30/17 09:46 Dose: 100 mls/hr Insulin Human Regular (Novolin R) 0 unit SC ACHS [facility] PRN Reason: Protocol Last Admin: 08/30/17 16:54 Dose: Not Given Sacubitril/Valsartan (Entresto 24 Mg-26 Mg) 1 tab PO BID [facility] Last Admin: 08/30/17 17:18 Dose: 1 tab Spironolactone (Aldactone) 100 mg PO DAILY [facility] Last Admin: 08/30/17 09:46 Dose: 100 mg - Labs Labs: 08/30/17 08:21 08/30/17 08:21 PT 15.3 SECONDS (9.7-12.2) H 08/29/17 03:32 INR 1.4 08/29/17 03:32 APTT 36 SECONDS (21-34) H 08/29/17 03:32 Attending/Attestation - Attestation I have personally seen and examined this patient.: Yes I have fully participated in the care of the patient.: Yes I have reviewed all pertinent clinical information, including history, physical exam and plan: Yes Notes (Text): 08/30/17 19:40 Patient was seen and examined with resident Dr. Aster Montalvo along with the Podiatry Team. Examination of the bilateral leg ulcers (posterior lower right leg and anterior left lower leg) did not indicate any surrounding cellulitis. Awaiting sensitivities to the Left Leg Ulcer which showed Gram Negative Rods. I spoke with Beth in the Microbiology Lab and hopefully the sensitivity will be available by morning of 08/31/17 so that patient can be discharged. Unna Boot placed by Podiatry and Dr. Aster Montalvo after our exam. Attempt was made for home visiting wound care Nurse Shay Romero to see patient through [facility] but this was denied as patient's condition did not qualify as he is not home bound (this as per my conversation with [facility] sales and merchandising representative Patti). Patient declined continued home visiting wound care services by [facility] as he stated that he was not happy with them. I spoke with Cigar Head Perforator Serina and she was able to arrange for appointment with [facility] at [facility] on Saturday at 1:15 PM with Vice President Pharmacy Dr. Montoya for Unna Boot Change and dressing changes. Will discharge patient on morning 08/31/17 after wound culture sensitivity is known. Abimael Mahajan D.O.
--- NOTE | 2017-08-30 15:20 | CP.PCM.PN ---
Subjective - Date & Time of Evaluation Date of Evaluation: 08/30/17 Time of Evaluation: 12:10 - Subjective Subjective: Podiatry Progress Note- Dr. Montoya. 67 year old male seen at bedside concerning bilateral leg ulcers. Pt reports marked decrease in swelling to both legs, though reports still having pain. Pt has no new pedal complaints. Patient denies chest pain, abdominal pain, dyspnea , nausea, vomiting, fevers, headaches, dysuria, constipation, diarrhea. Objective - Vital Signs/Intake and Output Vital Signs (last 24 hours): Temp Pulse Resp BP Pulse Ox 98.0 F 76 20 113/67 96 08/30/17 07:00 08/30/17 12:00 08/30/17 07:00 08/30/17 09:47 08/30/17 07:00 - Medications Medications: Current Medications Aspirin (Aspirin Chewable) 81 mg PO DAILY [facility] Last Admin: 08/30/17 09:46 Dose: 81 mg Carvedilol (Coreg) 3.125 mg PO BID [facility] Last Admin: 08/30/17 09:46 Dose: 3.125 mg Dextrose (Glutose 15) 0 gm PO ONCE PRN; Protocol PRN Reason: Hypoglycemia Protocol Furosemide (Lasix) 40 mg IVP BID [facility] Last Admin: 08/30/17 09:47 Dose: 40 mg Glucagon (Glucagen Diagnostic Kit) 0 mg IM STAT PRN; Protocol PRN Reason: Hypoglycemia Protocol Heparin Sodium (Porcine) (Heparin) 5,000 units SC Q8 [facility] Last Admin: 08/30/17 06:09 Dose: 5,000 units Dextrose (Dextrose 5% In Water 1000 Ml) 1,000 mls @ 0 mls/hr IV .Q0M PRN; Protocol; Per Protocol PRN Reason: Hypoglycemia Protocol Ceftriaxone Sodium 1 gm/ (Sodium Chloride) 100 mls @ 100 mls/hr IVPB DAILY [facility] PRN Reason: Protocol Last Admin: 08/30/17 10:55 Dose: 100 mls/hr Doxycycline Hyclate 100 mg/ (Sodium Chloride) 100 mls @ 100 mls/hr IVPB Q12H [facility] PRN Reason: Protocol Last Admin: 08/30/17 09:46 Dose: 100 mls/hr Insulin Human Regular (Novolin R) 0 unit SC ACHS [facility] PRN Reason: Protocol Last Admin: 08/30/17 12:29 Dose: 3 u Sacubitril/Valsartan (Entresto 24 Mg-26 Mg) 1 tab PO BID [facility] Last Admin: 08/30/17 09:46 Dose: 1 tab Spironolactone (Aldactone) 100 mg PO DAILY [facility] Last Admin: 08/30/17 09:46 Dose: 100 mg - Labs Labs: 08/30/17 08:21 08/30/17 08:21 PT 15.3 SECONDS (9.7-12.2) H 08/29/17 03:32 INR 1.4 08/29/17 03:32 APTT 36 SECONDS (21-34) H 08/29/17 03:32 - Constitutional Appears: Well, Non-toxic, No Acute Distress - Extremities Exam Additional comments: Lower extremity focused. Dressings, clean, dry, and intact. VASC: DP and PT pulses weakly palpable. +2 pitting edema noted to bilateral lower legs. [employer] to all 10 digits <3 seconds. NEURO: Protective sensation grossly diminished to level of midfoot, bilaterally. DERM: Bilateral xerosis noted to anterior leg and dorsal midfoot. RIGHT: Posterior ankle superficial ulceration with granular base measuring 7 x 1.3 cm with active serous drainage noted, upon mechanical debridement of unstable epidermal tissue. Absent john-wound maceration or undermining. No mal- odor or purulence noted. Abesnt acute signs of infection. LEFT: Anterior leg ulcer superficial ulceration with granular bases noted to middle 1/3 along anterior margin. Upon mechanical debridement inter-ulcer skin bridge slough off to reveal single continuos ulcer measuring 6.8x 5.1 cm. Ulcer is absent john-wound maceration or undermining. No mal-odor or purulence noted. Absent acute signs of infection. Tender to palpation. MUSK: Pedal muscle strength in lower leg and pedal muscle groups all graded 5/ 5. Limited ankle joint ROM absent crepitus. - Neurological Exam Neurological Exam: Alert, Awake, Oriented x3 - Psychiatric Exam Psychiatric exam: Normal Affect, Normal Mood Assessment and Plan - Assessment and Plan (Free Text) Assessment: 67 year old male with bilateral leg venous stasis ulcerations secondary to CHF. Plan: Pt seen and evaluated with attending, Dr. Montoya, present Chart, labs, and vitals reviewed. Afebrile, absent leukocytosis. Venous Duplex -negative for DVt bilaterally and negative for segmental venous reflux. Wound culture- prelim results show G(-) rods x 2 Continue IV abx per ID recommendations. Continue local wound care. Cleansed site with saline. Dressed bilateral legs with Unna's boot wraps and coban. Directed pt to avoid excessive wetting of dressings. Dressing to be left intact. Pt is stable from podiatry standpoint for discharge. To follow up with attending , Dr. Montoya, on outpatient basis within 7 days. Podiatry will continue to follow while inhouse.
[2017-08-31 07:56] VITALS: BP 126/79; PULSE 80; TEMP 97.6; O2SAT 97
[2017-08-31] MEDS: (Novolin R) Insulin Human Regular 100 units/ml vial SC SCH ×2 (08:17→12:17)
[2017-08-31] MEDS: Sacubitril/Valsartan 24-26mg Tab PO SCH (09:06)
--- NOTE | 2017-08-31 11:02 | CP.PCM.DIS ---
<Karen Salazar - Last Filed: 08/31/17 12:54> Provider - Provider Date of Admission: 08/29/17 02:11 Attending physician: Tim Barry MD Primary care physician: Jluis Rock APN Cardiology Dr. Rouse Consults: Dr. Montoya Time Spent in preparation of Discharge (in minutes): 40 Diagnosis - Discharge Diagnosis (1) Cellulitis Status: Chronic (2) Chronic ulcer of lower extremity Status: Chronic (3) CHF (congestive heart failure) Status: Chronic Priority: Medium Hospital Course - Lab Results Lab Results: Micro Results 08/29/17 00:05 Leg - Left Gram Stain - Final 08/29/17 00:05 Leg - Left Wound Culture - Final Klebsiella Oxytoca Enterobacter Aerogenes 08/29/17 06:10 Blood Blood Culture - Preliminary NO GROWTH AFTER 48 HOURS 08/29/17 06:10 Blood Blood Culture - Preliminary NO GROWTH AFTER 48 HOURS Most Recent Lab Values WBC 7.5 K/uL (4.8-10.8) 08/30/17 08:21 RBC 4.05 Mil/uL (4.40-5.90) L 08/30/17 08:21 Hgb 11.2 g/dL (12.0-18.0) L 08/30/17 08:21 Hct 34.8 % (35.0-51.0) L 08/30/17 08:21 MCV 86.0 fL (80.0-94.0) 08/30/17 08:21 MCH 27.6 pg (27.0-31.0) 08/30/17 08:21 MCHC 32.1 g/dL (33.0-37.0) L 08/30/17 08:21 RDW 16.9 % (11.5-14.5) H 08/30/17 08:21 Plt Count 246 K/uL (130-400) 08/30/17 08:21 MPV 8.0 fL (7.2-11.7) 08/30/17 08:21 Neut % (Auto) 68.6 % (50.0-75.0) 08/30/17 08:21 Lymph % (Auto) 13.2 % (20.0-40.0) L 08/30/17 08:21 [place] % (Auto) 16.1 % (0.0-10.0) H 08/30/17 08:21 Eos % (Auto) 1.9 % (0.0-4.0) 08/30/17 08:21 Baso % (Auto) 0.2 % (0.0-2.0) 08/30/17 08:21 Neut # (Auto) 5.2 K/uL (1.8-7.0) 08/30/17 08:21 Lymph # (Auto) 1.0 K/uL (1.0-4.3) 08/30/17 08:21 [place] # (Auto) 1.2 K/uL (0.0-0.8) H 08/30/17 08:21 Eos # (Auto) 0.1 K/uL (0.0-0.7) 08/30/17 08:21 Baso # (Auto) 0.0 K/uL (0.0-0.2) 08/30/17 08:21 PT 15.3 SECONDS (9.7-12.2) H 08/29/17 03:32 INR 1.4 08/29/17 03:32 APTT 36 SECONDS (21-34) H 08/29/17 03:32 Sodium 140 mmol/L (132-148) 08/30/17 08:21 Potassium 4.4 mmol/L (3.6-5.2) 08/30/17 08:21 Chloride 99 mmol/L (98-107) 08/30/17 08:21 Carbon Dioxide 31 mmol/L (22-30) H 08/30/17 08:21 Anion Gap 15 (10-20) 08/30/17 08:21 BUN 20 mg/dL (9-20) 08/30/17 08:21 Creatinine 1.1 mg/dL (0.8-1.5) 08/30/17 08:21 Est GFR ( Amer) > 60 08/30/17 08:21 Est GFR (Non-Af Amer) > 60 08/30/17 08:21 POC Glucose (mg/dL) 130 mg/dL (65-110) H 08/30/17 16:30 Random Glucose 118 mg/dL (75-110) H 08/30/17 08:21 Calcium 8.7 mg/dl (8.6-10.4) 08/30/17 08:21 Phosphorus 3.9 mg/dL (2.5-4.5) 08/30/17 08:21 Magnesium 1.5 mg/dL (1.6-2.3) L 08/30/17 08:21 Total Bilirubin 0.9 mg/dL (0.2-1.3) 08/30/17 08:21 AST 23 U/L (17-59) 08/30/17 08:21 ALT 13 U/L (21-72) L 08/30/17 08:21 Alkaline Phosphatase 120 U/L (38-126) 08/30/17 08:21 NT-Pro-B Natriuret Pep 4730 pg/mL (0-900) H 08/29/17 00:05 Total Protein 8.1 g/dL (6.3-8.3) 08/30/17 08:21 Albumin 3.7 g/dL (3.5-5.0) 08/30/17 08:21 Globulin 4.4 gm/dL (2.2-3.9) H 08/30/17 08:21 Albumin/Globulin Ratio 0.8 (1.0-2.1) L 08/30/17 08:21 Alcohol, Quantitative < 10 mg/dl (0-10) 08/29/17 03:06 - Hospital Course Hospital Course: 67 year old male with history of CHF s/p AICD, HTN, DM2, and liver cirrhosis presents to ED with bilateral lower leg cellulitis with leg ulcerations. Patient states that he started with small pimple that gradually progressed to large open ulcerations of his legs. Visiting nurse was sent to his home to change the dressings. Patient states they have not shown up for several days and that they told him it was getting better when they did see him. Patient states he went to Jluis Rock APN ([place]) in the office today and told him to come to the ED due to infection of his lower extremities. Patient denies fever, chills, nausea, or vomiting. Patient states he has difficulty standing on his legs for long periods of time due to pain. Patient uses a walker to walk around. Patient admits to SOB and dyspnea on exertion. Patient was given vancomycin and zosyn in the ED. Upon admission patient was started on rocephin and doxycycline. His venous doppler was negative for DVT in bilateral lower extremity. Podiatry and wound care were consulted. Patient was afebrile and had no leukocytosis throughout his hospital course. His wound culture returned positive for Klebsiella Oxytoca and Enterobacter Aerogenes. Patient will take oral Cipro 500mg twice day for 10 days as the organisms are most sensitive to it. Patient refused to continue home visiting wound care services by [facility] as he is not happy with them. He will follow up Wound Care Center at [facility] ([facility]3] on Saturday09/04/17 at 1:15 PM with Registered Nurse Cardiac Telemetry Dr. Montoya for Unna Boot Change and dressing changes. Patient agreed and understood the treatment plan as listed on Additional Instructions. Above is a brief summary of patient's hospital course. Please refer to medical records for further detail. - Date & Time of H&P Date of H&P: 08/29/17 Time of H&P: 03:09 Discharge Exam - Additional Findings Additional findings: - Constitutional Appears: No Acute Distress - Head Exam Head Exam: ATRAUMATIC, NORMAL INSPECTION - Eye Exam Eye Exam: EOMI, Normal appearance - ENT Exam ENT Exam: Mucous Membranes Moist - Respiratory Exam Respiratory Exam: NORMAL BREATHING PATTERN. absent: Rales, Rhonchi, Wheezes, Respiratory Distress - Cardiovascular Exam Cardiovascular Exam: +S1, +S2 - GI/Abdominal Exam GI & Abdominal Exam: Firm (protuberant, obese), Normal Bowel Sounds. absent: Tenderness - Extremities Exam Extremities Exam: Pedal Edema (b/l), Tenderness (b/l). absent: Normal Inspection Additional comments: venous stasis ulcers b/l: LLE- ucler on anterior tibia; RLE - ulcer noted on lower posterior calf; no purulent drainage,erythema - Neurological Exam Neurological Exam: Alert, Awake, Oriented x3 - Psychiatric Exam Psychiatric exam: Normal Affect, Normal Mood - Skin Skin Exam: Warm. absent: Intact (venous stasis ulcers b/l: LLE- ucler on anterior tibia; RLE- ulcer noted on lower posterior calf) Discharge Plan - Discharge Medications Prescriptions: Ciprofloxacin [Cipro] 500 mg PO BID #20 tab Furosemide 40 mg PO DAILY #30 tablet Saccharomyces Boulardi [Florastor] 250 mg PO BID #80 cap Sacubitril/Valsartan [Entresto 24 mg-26 mg] 1 tab PO BID #60 tablet Spironolactone [Aldactone] 100 mg PO DAILY #30 tab - Follow Up Plan Condition: FAIR Disposition: HOME/ ROUTINE Instructions: Heart Failure, Adult, Heart Failure, Adult (DC), Implantable Cardioverter-Defibrillators, Medical Devices for Congestive Heart Failure (CHF) , Heart Failure (DC), Heart Failure (GEN), Pacemaker (DC), Pacemaker (GEN), Pulmonary Edema (DC), Pulmonary Edema (GEN), Cellulitis (DC), Cellulitis (GEN), Ascites (DC), Ascites (GEN) Additional Instructions: Patient is to follow up at wound care center at [facility]3] on Saturday09/04/17 @11:15PM for appointment with Dr. Montoya Do not wet the Avis boots Patient will be given further instruction about dressing changes at the time his appointment Schedule follow up with PMD, package handler and java portal developer in 7-10 days after hospital discharge Go to the nearest ED if symptoms return or worsen Patient will take the following medications: Cipro 500mg PO BID (8am & 8pm) #20 Florastor 250mgmg po BID (10am & 6pm) #80 Entresto 24/26mg po BID (8am & 8pm) #60 Coreg 3.125mg PO BID (8am & 8pm) #60 Furosdemide 40mg PO daily (2pm) #30 Aldactone 100mg po daily (10am) #30 Aspirin 81mg po daily (8am) #30 Referrals: Abimael Mahajan MD [Staff Provider] - Camilo Montoya DPM [Staff Provider] - Clinical Quality Measures - CQM - Heart Failure Ejection Fraction: Less Than 40 % JUANITA Inhibitor Prescribed: Yes Beta-Erlinda Prescribed: Carvedilol Angiotensin II Receptor Erlinda Prescribed: Yes AnticoagulationTherapy for Atrial Fibrillation/Atrialflutter: Yes Aldosterone Antagonist Prescribed: Yes Hydralazine Nitrate Prescribed: No Contraindication/Reason for not providing: not indicated Implantable Cardioverter Defibrillator Therapy: Yes Contraindication/Reason for not providing: Patient has AICD placed Cardiac Resynchronization Therapy Prescribed: No Contraindication/Reason for not providing: not indicated - Date & Time of Discharge Summary Date of Discharge Summary: 08/31/17 Time of Discharge Summary: 13:05 <Abimael Mahajan - Last Filed: 08/31/17 19:51> Provider - Provider Date of Admission: 08/29/17 02:11 Attending physician: Tim Barry MD Hospital Course - Lab Results Lab Results: Micro Results 08/29/17 00:05 Leg - Left Gram Stain - Final 08/29/17 00:05 Leg - Left Wound Culture - Final Klebsiella Oxytoca Enterobacter Aerogenes 08/29/17 06:10 Blood Blood Culture - Preliminary NO GROWTH AFTER 48 HOURS 08/29/17 06:10 Blood Blood Culture - Preliminary NO GROWTH AFTER 48 HOURS Most Recent Lab Values WBC 7.5 K/uL (4.8-10.8) 08/30/17 08:21 RBC 4.05 Mil/uL (4.40-5.90) L 08/30/17 08:21 Hgb 11.2 g/dL (12.0-18.0) L 08/30/17 08:21 Hct 34.8 % (35.0-51.0) L 08/30/17 08:21 MCV 86.0 fL (80.0-94.0) 08/30/17 08:21 MCH 27.6 pg (27.0-31.0) 08/30/17 08:21 MCHC 32.1 g/dL (33.0-37.0) L 08/30/17 08:21 RDW 16.9 % (11.5-14.5) H 08/30/17 08:21 Plt Count 246 K/uL (130-400) 08/30/17 08:21 MPV 8.0 fL (7.2-11.7) 08/30/17 08:21 Neut % (Auto) 68.6 % (50.0-75.0) 08/30/17 08:21 Lymph % (Auto) 13.2 % (20.0-40.0) L 08/30/17 08:21 [place] % (Auto) 16.1 % (0.0-10.0) H 08/30/17 08:21 Eos % (Auto) 1.9 % (0.0-4.0) 08/30/17 08:21 Baso % (Auto) 0.2 % (0.0-2.0) 08/30/17 08:21 Neut # (Auto) 5.2 K/uL (1.8-7.0) 08/30/17 08:21 Lymph # (Auto) 1.0 K/uL (1.0-4.3) 08/30/17 08:21 [place] # (Auto) 1.2 K/uL (0.0-0.8) H 08/30/17 08:21 Eos # (Auto) 0.1 K/uL (0.0-0.7) 08/30/17 08:21 Baso # (Auto) 0.0 K/uL (0.0-0.2) 08/30/17 08:21 PT 15.3 SECONDS (9.7-12.2) H 08/29/17 03:32 INR 1.4 08/29/17 03:32 APTT 36 SECONDS (21-34) H 08/29/17 03:32 Sodium 140 mmol/L (132-148) 08/30/17 08:21 Potassium 4.4 mmol/L (3.6-5.2) 08/30/17 08:21 Chloride 99 mmol/L (98-107) 08/30/17 08:21 Carbon Dioxide 31 mmol/L (22-30) H 08/30/17 08:21 Anion Gap 15 (10-20) 08/30/17 08:21 BUN 20 mg/dL (9-20) 08/30/17 08:21 Creatinine 1.1 mg/dL (0.8-1.5) 08/30/17 08:21 Est GFR ( Amer) > 60 08/30/17 08:21 Est GFR (Non-Af Amer) > 60 08/30/17 08:21 POC Glucose (mg/dL) 130 mg/dL (65-110) H 08/30/17 16:30 Random Glucose 118 mg/dL (75-110) H 08/30/17 08:21 Calcium 8.7 mg/dl (8.6-10.4) 08/30/17 08:21 Phosphorus 3.9 mg/dL (2.5-4.5) 08/30/17 08:21 Magnesium 1.5 mg/dL (1.6-2.3) L 08/30/17 08:21 Total Bilirubin 0.9 mg/dL (0.2-1.3) 08/30/17 08:21 AST 23 U/L (17-59) 08/30/17 08:21 ALT 13 U/L (21-72) L 08/30/17 08:21 Alkaline Phosphatase 120 U/L (38-126) 08/30/17 08:21 NT-Pro-B Natriuret Pep 4730 pg/mL (0-900) H 08/29/17 00:05 Total Protein 8.1 g/dL (6.3-8.3) 08/30/17 08:21 Albumin 3.7 g/dL (3.5-5.0) 08/30/17 08:21 Globulin 4.4 gm/dL (2.2-3.9) H 08/30/17 08:21 Albumin/Globulin Ratio 0.8 (1.0-2.1) L 08/30/17 08:21 Alcohol, Quantitative < 10 mg/dl (0-10) 08/29/17 03:06 Attending/Attestation - Attestation I have personally seen and examined this patient.: Yes I have fully participated in the care of the patient.: Yes I have reviewed all pertinent clinical information, including history, physical exam and plan: Yes Notes (Text): 08/31/17 19:50 Exam, assessment and plan, and discharge instructions gone over with Resident Abimael Mahajan D.O.
--- NOTE | 2017-08-31 12:25 | CP.PCM.PN ---
Subjective - Date & Time of Evaluation Date of Evaluation: 08/31/17 Time of Evaluation: 12:22 - Subjective Subjective: Podiatry Progress Note- Dr. Montoya. 67 year old male seen at bedside with attending Dr. Montoya concerning bilateral leg ulcers. Dressing on the bilateral LE appears c.d.i. Reports that he sometimes feels itchy under the dressing. Patient denies chest pain, abdominal pain, dyspnea, nausea, vomiting, fevers, headaches, dysuria, constipation, diarrhea. no other pedal complains at this time. Objective - Vital Signs/Intake and Output Vital Signs (last 24 hours): Temp Pulse Resp BP Pulse Ox 97.6 F 80 20 126/79 97 08/31/17 07:00 08/31/17 07:00 08/31/17 07:00 08/31/17 07:00 08/31/17 07:00 Intake and Output: 08/31/17 08/31/17 06:59 18:59 Intake Total 500 Balance 500 - Medications Medications: Current Medications Aspirin (Aspirin Chewable) 81 mg PO DAILY [facility] Last Admin: 08/31/17 09:06 Dose: 81 mg Carvedilol (Coreg) 3.125 mg PO BID [facility] Last Admin: 08/31/17 09:06 Dose: 3.125 mg Dextrose (Glutose 15) 0 gm PO ONCE PRN; Protocol PRN Reason: Hypoglycemia Protocol Furosemide (Lasix) 40 mg IVP BID [facility] Last Admin: 08/31/17 10:36 Dose: Not Given Glucagon (Glucagen Diagnostic Kit) 0 mg IM STAT PRN; Protocol PRN Reason: Hypoglycemia Protocol Heparin Sodium (Porcine) (Heparin) 5,000 units SC Q8 [facility] Last Admin: 08/31/17 04:59 Dose: 5,000 units Dextrose (Dextrose 5% In Water 1000 Ml) 1,000 mls @ 0 mls/hr IV .Q0M PRN; Protocol; Per Protocol PRN Reason: Hypoglycemia Protocol Ceftriaxone Sodium 1 gm/ (Sodium Chloride) 100 mls @ 100 mls/hr IVPB DAILY [facility] PRN Reason: Protocol Last Admin: 08/31/17 09:09 Dose: 100 mls/hr Doxycycline Hyclate 100 mg/ (Sodium Chloride) 100 mls @ 100 mls/hr IVPB Q12H [facility] PRN Reason: Protocol Last Admin: 06/16/18 09:09 Dose: 100 mls/hr Insulin Human Regular (Novolin R) 0 unit SC ACHS [facility] PRN Reason: Protocol Last Admin: 08/31/17 12:17 Dose: Not Given Sacubitril/Valsartan (Entresto 24 Mg-26 Mg) 1 tab PO BID [facility] Last Admin: 08/31/17 09:06 Dose: 1 tab Spironolactone (Aldactone) 100 mg PO DAILY [facility] Last Admin: 08/31/17 09:06 Dose: 100 mg - Labs Labs: 08/30/17 08:21 08/30/17 08:21 PT 15.3 SECONDS (9.7-12.2) H 08/29/17 03:32 INR 1.4 08/29/17 03:32 APTT 36 SECONDS (21-34) H 08/29/17 03:32 - Constitutional Appears: Well, Non-toxic, No Acute Distress - Extremities Exam Additional comments: Dressing on the bilateral LE is clean, dry and intact - no strikethrough noted - Neurological Exam Neurological Exam: Alert, Awake, Oriented x3 - Psychiatric Exam Psychiatric exam: Normal Affect, Normal Mood Assessment and Plan - Assessment and Plan (Free Text) Assessment: 67 year old male with bilateral leg venous stasis ulcerations secondary to CHF. Plan: Pt seen and evaluated with attending, Dr. Motnoya, present Chart, labs, and vitals reviewed. Afebrile, absent leukocytosis. Venous Duplex -negative for DVt bilaterally and negative for segmental venous reflux. Wound culture - Klebsiella and enterobacter aerogenes Continue IV abx per ID recommendations. Dressing to be left intact. Pt is stable from podiatry standpoint for discharge. To follow up with attending , Dr. Montoya, on outpatient basis within 7 days. Podiatry will continue to follow while inhouse.
--- NOTE | 2017-09-01 15:41 | CARD ---
APPROVED REPORT EKG Measurement Heart [id number] <Conclusion> Poor data quality, interpretation may be adversely affected Ventricular-paced rhythm Abnormal ECG
== END 2017-08-31 14:00 | disposition home or self-care (01) | DRG 602 ==
LOC: C.ER 23:23 → C.9E 08-29 02:11 → C.5S 08-29 06:56
PROVIDERS: ADMIT Internal Medicine; ATTEND Internal Medicine
PROC: 0HDMXZZ Extraction of Right Foot Skin, External Approach (ICD-10-PCS; principal; 2017-08-30)
DX: L03.115 Cellulitis of right lower limb (principal); I50.23 Acute on chronic systolic (congestive) heart failure; L97.919 Non-pressure chronic ulcer of unspecified part of right lower leg with unspecified severity; R18.8 Other ascites; L97.929 Non-pressure chronic ulcer of unspecified part of left lower leg with unspecified severity; L03.116 Cellulitis of left lower limb; E11.622 Type 2 diabetes mellitus with other skin ulcer; E78.00 Pure hypercholesterolemia, unspecified; I11.0 Hypertensive heart disease with heart failure; K74.60 Unspecified cirrhosis of liver; I83.028 Varicose veins of left lower extremity with ulcer other part of lower leg; I83.018 Varicose veins of right lower extremity with ulcer other part of lower leg; F10.10 Alcohol abuse, uncomplicated; Z87.891 Personal history of nicotine dependence; Z95.810 Presence of automatic (implantable) cardiac defibrillator; Z79.4 Long term (current) use of insulin

== ENCOUNTER 2017-10-08 03:03 | Emergency (ER) | payer MEDICARE, BC ==
[2017-10-08 03:03] VITALS: BMI 28.8
[2017-10-08 03:17] VITALS: BP 140/80; RESP 18; TEMP 98
--- NOTE | 2017-10-08 03:40 | C.PDOC ---
History Of Present Illness 67-year-old male brought in by ambulance for evaluation of bleeding from chronic left leg wound. Patient states he woke up and felt that his left leg bandage was tight so he scratched the outside of it. Minutes later he noticed profuse bleeding from the left lower leg bandage and called EMS. Denies blood thinner use. Patient notes he has follow up with Dr. Montoya every Saturday. States the area is painful to touch. Otherwise patient denies any numbness, weakness, fever, or chills. Time Seen by Provider: 10/08/17 03:18 Chief Complaint (Nursing): Abnormal Skin Integrity History Per: Patient History/Exam Limitations: no limitations Onset/Duration Of Symptoms: Mins Current Symptoms Are (Timing): Better Quality Of Symptoms: Itching Past Medical History Reviewed: Historical Data, Nursing Documentation, Vital Signs Vital Signs: Last Vital Signs Temp 98 F 10/08/17 03:11 Pulse 78 10/08/17 04:01 Resp 18 10/08/17 03:11 BP 140/80 10/08/17 03:11 Pulse Ox 100 10/08/17 04:01 - Medical History PMH: Arthritis, CHF, Diabetes, HTN, Hypercholesterolemia Denies: Chronic Kidney Disease Surgical History: Appendectomy, Pacemaker (pt states only defibrillator) - [facility] Procedures ASSISTANCE WITH RESPIRATORY VENTILATION, 24-96 HRS, CPAP (01/21/17) DRAINAGE OF LEFT PLEURAL CAVITY, PERCUTANEOUS APPROACH (02/02/17) DRAINAGE OF PERITONEAL CAVITY, PERCUTANEOUS APPROACH (03/05/17) DRAINAGE OF PERITONEAL CAVITY, PERCUTANEOUS APPROACH, DIAGN (04/26/16) DRAINAGE OF RIGHT PLEURAL CAVITY, PERCUTANEOUS APPROACH (03/05/17) EXCISION OF STOMACH, ENDO, DIAGN (11/03/16) EXTRACTION OF RIGHT FOOT SKIN, EXTERNAL APPROACH (08/29/17) FLUOROSCOPY OF SUP VENA CAVA USING L OSM CONTRAST, GUIDANCE (03/05/17) INSERTION OF INFUSION DEV INTO SUP VENA CAVA, PERC APPROACH (03/05/17) INSPECTION OF LOWER INTESTINAL TRACT, ENDO (11/03/16) TRANSFUSE NONAUT RED BLOOD CELLS IN PERIPH VEIN, PERC (01/21/17) ULTRASONOGRAPHY OF SUPERIOR VENA CAVA, GUIDANCE (03/05/17) Family History: States: Unknown Family Hx - Social History Hx Tobacco Use: No Hx Alcohol Use: Yes (occassionaly) Hx Substance Use: No - Immunization History Hx Tetanus Toxoid Vaccination: Yes Hx Influenza Vaccination: Yes Hx Pneumococcal Vaccination: Yes Review Of Systems Except As Marked, All Systems Reviewed And Found Negative. Constitutional: Negative for: Fever, Chills Skin: Positive for: Lesions (chronic bilateral lower leg wounds, + bleeding from left) Neurological: Negative for: Weakness, Numbness Physical Exam - Physical Exam Appears: Well, Non-toxic, No Acute Distress Skin: Warm, Dry Head: Atraumatic, Normacephalic Eye(s): bilateral: Normal Inspection Chest: Symmetrical Extremity: Normal ROM, No Tenderness, Pedal Edema (mild), Capillary Refill ( less than 2sec), Other (Dried blood to distal tibia region of left leg; Healing ulcer noted, no active bleeding, no drainage, no foul odor) Pulses: Left Dorsalis Pedis: Normal, Right Dorsalis Pedis: Normal Neurological/Psych: Oriented x3, Normal Speech ED Course And Treatment O2 Sat by Pulse Oximetry: 98 (RA) Pulse Ox Interpretation: Normal Medical Decision Making Medical Decision Making: Impression: Left lower leg ulcer Plan: * Wound care Area cleaned with sterile saline. No active bleeding present. Xeroform dressing applied, telfa and zack bandage wrapped to leg. Patient instructed to follow up with Dr Montoya as scheduled this week Disposition Counseled Patient/Family Regarding: Diagnosis, Need For Followup - Disposition Referrals: Camilo Montoya DPM [Staff Provider] - Disposition: HOME/ ROUTINE Disposition Time: 04:00 Condition: STABLE Additional Instructions: Please follow up with podiatry for wound care and dressing change as scheduled for Saturday Instructions: Wound Care (DC) Forms: [facility] (Portuguese) - POA Present On Arrival: None - Clinical Impression Clinical Impression: Encounter for wound care - PA / DISCOVERY GUIDE / Resident Statement MD/DO has reviewed & agrees with the documentation as recorded. - Scribe Statement The provider has reviewed the documentation as recorded by the Scribe (Paris Metz) All medical record entries made by the Scribe were at my direction and personally dictated by me. I have reviewed the chart and agree that the record accurately reflects my personal performance of the history, physical exam, medical decision making, and the department course for this patient. I have also personally directed, reviewed, and agree with the discharge instructions and disposition.
[2017-10-08 04:02] VITALS: PULSE 78
[2017-10-08 04:14] VITALS: O2SAT 98
== END 2017-10-08 04:01 | disposition home or self-care (01) ==
LOC: C.ER 03:03
DX: Z48.00 Encounter for change or removal of nonsurgical wound dressing (principal)

== ENCOUNTER 2017-12-19 12:22 | Inpatient (IN) | payer MEDICARE, BC ==
[2017-12-19 12:22] VITALS: BMI 28.8
[2017-12-19] MEDS ORDERED: Piperacillin/Tazobact 3.375 gm 100 ML IV STA (13:36)
--- NOTE | 2017-12-19 14:04 | C.PDOC ---
History Of Present Illness 67 y/o male is sent to ED by Dr. Montoya for CHF, shortness of breath and left lower leg venous stasis ulcer. Pt is not on any antibiotics. No other complaints. Time Seen by Provider: 12/19/17 13:28 Chief Complaint (Nursing): Shortness Of Breath History Per: Patient History/Exam Limitations: no limitations Onset/Duration Of Symptoms: Days Current Symptoms Are (Timing): Still Present Past Medical History Reviewed: Historical Data, Nursing Documentation, Vital Signs Vital Signs: Last Vital Signs Temp 97.9 F 12/19/17 12:34 Pulse 81 12/19/17 12:34 Resp 19 12/19/17 12:34 BP 119/74 12/19/17 12:34 Pulse Ox 97 12/19/17 12:34 - Medical History PMH: Arthritis, CHF, Diabetes, HTN, Hypercholesterolemia Denies: Chronic Kidney Disease Surgical History: Appendectomy, Pacemaker - [facility] Procedures ASSISTANCE WITH RESPIRATORY VENTILATION, 24-96 HRS, CPAP (01/21/17) DRAINAGE OF LEFT PLEURAL CAVITY, PERCUTANEOUS APPROACH (02/02/17) DRAINAGE OF PERITONEAL CAVITY, PERCUTANEOUS APPROACH (03/05/17) DRAINAGE OF PERITONEAL CAVITY, PERCUTANEOUS APPROACH, DIAGN (04/26/16) DRAINAGE OF RIGHT PLEURAL CAVITY, PERCUTANEOUS APPROACH (03/05/17) EXCISION OF STOMACH, ENDO, DIAGN (11/03/16) EXTRACTION OF RIGHT FOOT SKIN, EXTERNAL APPROACH (08/29/17) FLUOROSCOPY OF SUP VENA CAVA USING L OSM CONTRAST, GUIDANCE (03/05/17) INSERTION OF INFUSION DEV INTO SUP VENA CAVA, PERC APPROACH (03/05/17) INSPECTION OF LOWER INTESTINAL TRACT, ENDO (11/03/16) TRANSFUSE NONAUT RED BLOOD CELLS IN PERIPH VEIN, PERC (01/21/17) ULTRASONOGRAPHY OF SUPERIOR VENA CAVA, GUIDANCE (03/05/17) Family History: States: Unknown Family Hx - Social History Hx Tobacco Use: No Hx Alcohol Use: Yes Hx Substance Use: No - Immunization History Hx Tetanus Toxoid Vaccination: No Hx Influenza Vaccination: Yes Hx Pneumococcal Vaccination: Yes Review Of Systems Except As Marked, All Systems Reviewed And Found Negative. Constitutional: Negative for: Fever, Chills Respiratory: Positive for: Shortness of Breath Musculoskeletal: Positive for: Leg Pain Neurological: Negative for: Weakness, Numbness Physical Exam - Physical Exam Appears: Non-toxic, No Acute Distress, Other (morbidly obese) Skin: Warm, Dry, Other (chronic 10 x 2cm of venous ulcer to left lateral calf with yellow crust on top) Head: Atraumatic, Normacephalic Eye(s): bilateral: Normal Inspection Oral Mucosa: Moist Neck: Normal ROM, Supple Cardiovascular: Rhythm Regular, No Murmur Respiratory: Normal Breath Sounds, No Rales, No Rhonchi, No Wheezing Gastrointestinal/Abdominal: Soft, No Tenderness, Other (globus abdomen) Extremity: Normal ROM, Pedal Edema (4/4 bilateral lower legs), No Deformity Neurological/Psych: Oriented x3, Normal Speech ED Course And Treatment - Laboratory Results Result Diagrams: 12/19/17 14:22 12/19/17 15:05 Lab Interpretation: Abnormal (bnp 6100, trop neg.) ECG Rhythm: V Paced ECG Interpretation: Normal, No Acute Changes, No Changes From Prior Rate From EC O2 Sat by Pulse Oximetry: 97 (RA) Pulse Ox Interpretation: Normal - Radiology CXR: Interpreted by Me CXR Interpretation: Yes: Heart Size, Other (+CHF) Reevaluation Time: 15:50 Reassessment Condition: Improved - Physician Consult Information Outcome Of Conversation: Diane Rock, Dr. Rouse, and DR. Roca, ok to admit. Disposition Doctor Will See Patient In The: Hospital Counseled Patient/Family Regarding: Studies Performed, Diagnosis - Disposition Disposition: HOSPITALIZED Disposition Time: 15:51 Condition: FAIR Forms: [facility] (Cameroonian) - Clinical Impression Clinical Impression: Chronic ulcer of lower extremity, CHF (congestive heart failure) - Scribe Statement The provider has reviewed the documentation as recorded by the Scribe KP All medical record entries made by the Scribe were at my direction and personally dictated by me. I have reviewed the chart and agree that the record accurately reflects my personal performance of the history, physical exam, medical decision making, and the department course for this patient. I have also personally directed, reviewed, and agree with the discharge instructions and disposition.
[2017-12-19 14:25] LABS: BASO % 0.5 % (0.0-2.0); EOS # 0.1 K/uL (0.0-0.7); EOS % 0.8 % (0.0-4.0); HEMOGLOBIN 9.6 g/dL (12.0-18.0); LYMPH # 0.9 K/uL (1.0-4.3); LYMPH % 13.4 % (20.0-40.0); MEAN CELL VOLUME 78.7 fL (80.0-94.0); MEAN CORPUSCULAR HEMOGLOBIN 24.6 pg (27.0-31.0); MEAN CORPUSCULAR HGB CONC 31.2 g/dL (33.0-37.0); MEAN PLATELET VOLUME 8.1 fL (7.2-11.7); MONO # 1.1 K/uL (0.0-0.8); MONO % 16.7 % (0.0-10.0); NEUT # 4.7 K/uL (1.8-7.0); NEUT % 68.6 % (50.0-75.0); NRBC % 0.1 % (0.0-2.0); RBC 3.89 Mil/uL (4.40-5.90); RED CELL DISTRIBUTION WIDTH 18.6 % (11.5-14.5); WHITE BLOOD COUNT 6.9 K/uL (4.8-10.8)
[2017-12-19 14:34] LABS: INR 1.5; PROTHROMBIN TIME 16.3 SECONDS (9.7-12.2)
[2017-12-19] MEDS ORDERED: Piperacillin/Tazobact 3.375 gm 100 ML IVPB ONE (15:16)
[2017-12-19 15:27] LABS: ALBUMIN 4.2 g/dL (3.5-5.0); ALT/SGPT 20 U/L (21-72); AST/SGOT 26 U/L (17-59); BLOOD UREA NITROGEN 17 mg/dL (9-20); CALCIUM 8.5 mg/dl (8.6-10.4); GFR NON-AFRICAN AMERICAN > 60
[2017-12-19 15:38] LABS: B-TYPE NATRIURETIC PEPTIDE 6190 pg/mL (0-900)
--- NOTE | 2017-12-19 15:56 | RAD ---
Date of service: 12/19/2017 PROCEDURE: CHEST RADIOGRAPH, 1 VIEW HISTORY: SOB COMPARISON: 07/20/2017 FINDINGS: LUNGS: Lung volumes lower limits of normal. No interval consolidation. PLEURA: Small bilateral pleural effusions are believe present. That on the right appears slightly less now than before. No pneumothorax. CARDIOVASCULAR: Marked cardiomegaly-similar. Pulmonary venous congestion-probably slightly less now than before. Position/ configuration of pacemaker appearing position. OSSEOUS STRUCTURES: No significant abnormalities. VISUALIZED UPPER ABDOMEN: Normal. OTHER FINDINGS: None. IMPRESSION: Chronic changes as above: Cardiomegaly and pulmonary venous congestion-the latter slightly decreased compared the prior study. Small bilateral pleural effusions-that on the right probably less now than before. Pacemaker in place
--- NOTE | 2017-12-19 16:57 | CP.PCM.HP ---
History of Present Illness - History of Present Illness History of Present Illness: PGY2 Medicine H+P for Dr. Roca Patient is a 67 year old male sent in by Dr. Camilo Montoya for CHF exacerbation/shortness of breath and b/l LE venous ulcers. Patient states that he has been feeling more short of breath for the last two months. He uses a walker to get around but has been needing to rest more frequently. He is no l onger able to sleep laying flat because he starts to cough and feel more short of breath. His legs have also become more swollen for the past couple of weeks. He went to see Dr. Montoya (Podiatry) today for treatment of his b/l leg ulcers when he was instructed to come to the emergency room. Patient states that his leg ulcers have been improving but he started to leak over the past couple of weeks. He also reports increased abdominal distension. He reports having a paracentesis previously with Dr. Randle twice in the past. Denies fevers, chills, nausea, vomiting, diarrhea, constipation, chest pain, abdominal pain, weakness, numbness or tingling. Podiatry: Dr. Montoya Cardiology: Dr. Rouse PMH: Defibrillator and pacemaker(2011), CHF, HTN, liver cirrhosis, pleural effusions, T2DM (patient denies history) PSH: Defibrillator/pacemaker placed in 2011, multiple paracentesis/thoracentesis Family history: T2DM (grandfather) Social History: Denies tobacco and illicit drug use. Drinks 1 glass of wine 3 times a week but used to drink 12 beers per day for 30 years (quit many years ago) Allergies: NKDA Present on Admission - Present on Admission Any Indicators Present on Admission: No Review of Systems - Constitutional Constitutional: As Per HPI - EENT Eyes: As Per HPI Nose/Mouth/Throat: As Per HPI - Cardiovascular Cardiovascular: As Per HPI - Respiratory Respiratory: As Per HPI - Gastrointestinal Gastrointestinal: As Per HPI - Genitourinary Genitourinary: As Per HPI - Musculoskeletal Musculoskeletal: As Per HPI - Integumentary Integumentary: As Per HPI - Neurological Neurological: As Per HPI - Psychiatric Psychiatric: As Per HPI - Endocrine Endocrine: As Per HPI - Hematologic/Lymphatic Hematologic: As Per HPI Past Patient History - Infectious Disease Hx of Infectious Diseases: None - Past Medical History & Family History Past Medical History?: Yes - Past Social History Smoking Status: Never Smoked - CARDIAC Hx Congestive Heart Failure: Yes Hx Hypercholesterolemia: Yes Hx Hypertension: Yes Hx Pacemaker: Yes - PULMONARY Hx Respiratory Disorders: No - NEUROLOGICAL Hx Neurological Disorder: No - HEENT Hx HEENT Problems: No - RENAL Hx Chronic Kidney Disease: No - ENDOCRINE/METABOLIC Hx Diabetes Mellitus Type 2: Yes - HEMATOLOGICAL/ONCOLOGICAL Hx Blood Disorders: No - INTEGUMENTARY Hx Dermatological Problems: No - MUSCULOSKELETAL/RHEUMATOLOGICAL Hx Arthritis: Yes - GASTROINTESTINAL Hx Gastrointestinal Disorders: No - GENITOURINARY/GYNECOLOGICAL Hx Genitourinary Disorders: No - PSYCHIATRIC Hx Substance Use: No - SURGICAL HISTORY Hx Appendectomy: Yes - ANESTHESIA Hx Anesthesia: Yes Hx Anesthesia Reactions: No Hx Malignant Hyperthermia: No Meds Allergies/Adverse Reactions: Allergies Allergy/AdvReac Type Severity Reaction Status Date / Time No Known Allergies Allergy Verified 12/19/17 12:39 Physical Exam - Constitutional Appears: Non-toxic, No Acute Distress, Chronically Ill, Other (obese) - Head Exam Head Exam: ATRAUMATIC, NORMOCEPHALIC - Eye Exam Eye Exam: EOMI, Normal appearance - ENT Exam ENT Exam: Mucous Membranes Moist - Neck Exam Neck exam: Negative for: Lymphadenopathy - Respiratory Exam Respiratory Exam: Clear to Auscultation Bilateral, NORMAL BREATHING PATTERN. absent: Accessory Muscle Use, Rales, Rhonchi, Wheezes, Respiratory Distress - Cardiovascular Exam Cardiovascular Exam: REGULAR RHYTHM - GI/Abdominal Exam GI & Abdominal Exam: Distended, Soft. absent: Firm, Guarding, Hernia, Rigid, Tenderness Additional comments: +fluid wave - Extremities Exam Extremities exam: Positive for: pedal edema (4+ pitting edema b/l up to knee), tenderness. Negative for: calf tenderness - Back Exam Back exam: NORMAL INSPECTION. absent: CVA tenderness (L), CVA tenderness (R), paraspinal tenderness - Neurological Exam Neurological exam: Alert, CN II-XII Intact, Oriented x3 - Psychiatric Exam Psychiatric exam: Normal Affect, Normal Mood - Skin Skin Exam: Dry, Warm Additional comments: chronic ulcers on LE b/l draining serous fluid. very dry skin on lower extremities b/l Results - Vital Signs Recent Vital Signs: Last Vital Signs Temp 97.9 F 12/19/17 12:34 Pulse 81 12/19/17 12:34 Resp 19 12/19/17 12:34 BP 119/74 12/19/17 12:34 Pulse Ox 97 12/19/17 15:51 - Labs Result Diagrams: 12/19/17 14:22 12/19/17 15:05 Labs: Laboratory Results - last 24 hr 12/19/17 12/19/17 12/19/17 14:22 14:22 15:05 WBC 6.9 RBC 3.89 L Hgb 9.6 L Hct 30.6 L MCV 78.7 L D MCH 24.6 L MCHC 31.2 L RDW 18.6 H Plt Count 201 MPV 8.1 Neut % (Auto) 68.6 Lymph % (Auto) 13.4 L Fleming % (Auto) 16.7 H Eos % (Auto) 0.8 Baso % (Auto) 0.5 Neut # (Auto) 4.7 Lymph # (Auto) 0.9 L Fleming # (Auto) 1.1 H Eos # (Auto) 0.1 Baso # (Auto) 0.0 PT 16.3 H INR 1.5 APTT 37 H Sodium 141 Potassium 5.3 H Chloride 103 Carbon Dioxide 28 Anion Gap 16 BUN 17 Creatinine 1.2 Est GFR ( Amer) > 60 Est GFR (Non-Af Amer) > 60 Random Glucose 81 Calcium 8.5 L Total Bilirubin 1.3 AST 26 ALT 20 L D Alkaline Phosphatase 140 H Troponin I 0.0230 NT-Pro-B Natriuret Pep 6190 H Total Protein 8.5 H Albumin 4.2 Globulin 4.3 H Albumin/Globulin Ratio 1.0 Assessment & Plan - Assessment and Plan (Free Text) Plan: Acute on Chronic CHF exacerbation Cardiology consulted, Dr. Rouse Admit to telemetry CXR (12/19): * Chronic changes as above: Cardiomegaly and pulmonary venous congestion-the latter slightly decreased compared the prior study. * Small bilateral pleural effusions-that on the right probably less now than before. * Pacemaker in place EKG: Ventricularly paced rhythm @ 75bpm ECHO 07/2017 10-20% grade III diastolic dysfunction BNP (12/19): 6,190 (previous on 08/29: 4,730) Strict I's and O's * Fluid Restriction - 1 Liter Medications: * Entresto 24mg-26mg tab PO BID * Coreg 3.125 mg PO BID * Lasix 40mg IVP BID * Aldactone 100 mg PO daily Chronic LE leg ulceration with edema Podiatry consulted, Dr. Montoya Chronic ulcers improving draining serous fluid b/l No erythema, afebrile and no leukocytosis - no abx indicated at this time. Blood cultures pending Liver cirrhosis with ascites and history of multiple paracentesis/thoracentesis from effusion IR consulted, Dr. Randle - paracentesis history of ETOH abuse Medications: * Lasix 40mg IVP BID * Aldactone 100 mg PO daily Diabetes - questionable noted in chart but patient denies and does not currently take any medications Diet: heart healthy carb consistent low sodium diet Hgb A1c pending * Hgb A1c 6.1 on 07/19/17 Prophylactic Care SCD contraindicated due to leg ulcerations Lovenox 40mg SC daily Protonix 40mg PO daily Case discussed with Dr. Abelino [place] PGY2
[2017-12-19] MEDS: Sacubitril/Valsartan 24-26mg Tab PO SCH (20:00)
[2017-12-19] MEDS ORDERED: guaiFENesin DM 100 mg-10 mg/5 ml UD PO PRN (21:52)
[2017-12-19] MEDS: guaiFENesin DM 100 mg-10 mg/5 ml UD PO PRN (22:20)
[2017-12-20] MEDS: guaiFENesin DM 100 mg-10 mg/5 ml UD PO PRN ×2 (02:39→19:23)
--- NOTE | 2017-12-20 08:00 | CP.PCM.CON ---
History of Present Illness - History of Present Illness History of Present Illness: ASKED TO SEE PT BY DR CUMMINGS IN CARDIOLOGY COVERAGE. 67 y/o admitted with progressive sob over 2 weeks. 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 also hx of liver cirrhosis. pt feels better compared to admission. ambulating minimally. pos orthopnea, no pnd, pos fernando, no palp or cp. Review of Systems - Constitutional Constitutional: As Per HPI. absent: Anorexia, Chills, Daytime Sleepiness, Excessive Sweating, Fatigue, Fever, Frequent Falls, Headache, Increased Appetite, Lethargy, Malaise, Night Sweats, Snoring, Sleep Apnea, Weight Gain, Weight Loss, Weakness, Other - EENT Eyes: As Per HPI. absent: Blind Spots, Blurred Vision, Change in Vision, Decreased Night Vision, Diplopia, Discharge, Dry Eye, Exophthalmos, Floaters, Irritation, Itchy Eyes, Loss of Peripheral Vision, Pain, Photophobia, Requires Corrective Lenses, Sees Flashes, Spots in Vision, Tunnel Vision, Other Visual Disturbances, Loss of Vision, Other Ears: As Per HPI. absent: Decreased Hearing, Ear Discharge, Ear Pain, Tinnitus, Abnormal Hearing, Disequilibrium, Dizziness, Other Nose/Mouth/Throat: As Per HPI. absent: Epistaxis, Nasal Congestion, Nasal Discharge, Nasal Obstruction, Nasal Trauma, Nose Pain, Post Nasal Drip, Sinus Pain, Sinus Pressure, Bleeding Gums, Change in Voice, Dental Pain, Dry Mouth, Dysphagia, Halitosis, Hoarsness, Lip Swelling, Mouth Lesions, Mouth Pain, Odynop hagia, Sore Throat, Throat Swelling, Tongue Swelling, Facial Pain, Neck Pain, Neck Mass, Other - Cardiovascular Cardiovascular: As Per HPI, Claudication, Dyspnea, Dyspnea on Exertion, Edema, Leg Ulcers. absent: Acrocyanosis, Chest Pain, Chest Pain at Rest, Chest Pain with Activity, Diaphoresis, Irregular Heart Rhythm, Pain Radiating to Arm/Neck/Jaw, Leg Edema, Lightheadedness, Orthopnea, Palpitations, Paroxysmal Nocturnal Dyspnea, Pedal Edema, Radiating Pain, Rapid Heart Rate, Slow Heart Rate, Syncope, Other - Respiratory Respiratory: As Per HPI. absent: Cough, Dyspnea, Hemoptysis, Dyspnea on Exertion, Wheezing, Snoring, Stridor, Pain on Inspiration, Chest Congestion, Excessive Mucous Production, Change in Mucous Color, Pain with Coughing, Other - Gastrointestinal Gastrointestinal: As Per HPI. absent: Abdominal Pain, Belching, Bloating, Change in Bowel Habits, Change in Stool Character, Coffee Ground Emesis, Constipation, Cramping, Diarrhea, Dyspepsia, Dysphagia, Early Satiety, Excessive Flatus, Fecal Incontinence, Heartburn, Hematemesis, Hematochezia, Loose Stools, Melena, Nausea, Odynophagia, Temesmus, Vomiting, Other - Genitourinary Genitourinary: As Per HPI. absent: Change in Urinary Stream, Difficulty Urinating, Dysuria, Flank Pain, Hematuria, Pyuria, Nocturia, Urinary Incontinence, Urinary Frequency, Urinary Hesitance, Urinary Urgency, Voiding Freq/Small Amts, Freq UTI, Hx Renal/Bladder Calculi, Hx /Renal Surgery, Bladder Distension, Other - Reproductive: Male Reproductive:Male: As Per HPI - Musculoskeletal Musculoskeletal: As Per HPI. absent: Abnormal Gait, Arthralgias, Atrophy, Back Pain, Deformity, Joint Swelling, Limited Range of Motion, Loss of Height, Muscle Cramps, Muscle Weakness, Myalgias, Neck Pain, Numbness, Radiating Pain into Limb, Stiffness, Tingling, Other - Integumentary Integumentary: As Per HPI. absent: Acne, Alopecia, Bleeding Lesions, Change in Hair, Change in Nails, Change in Pigmentation, Changing Lesions, Dry Skin, Erythema, Furuncle, Hirsutism, Lesions, New Lesions, Non-Healing Lesions, Photosensitivity, Pruritus, Rash, Skin Pain, Skin Ulcer, Sores, Striae, Swelling, Unusual Bruising, Wounds, Jaundice, Other - Neurological Neurological: As Per HPI. absent: Abnormal Gait, Abnormal Hearing, Abnormal Movements, Abnormal Speech, Behavioral Changes, Burning Sensations, Confusion, Convulsions, Disequilibrium, Dizziness, Numbness, Focal Weakness, Frequent Falls, Headaches, Lack of Coordination, Loss of Vision, Memory Loss, Paresthesias, Radicular Pain, Restless Legs, Sensory Deficit, Syncope, Tingling, Tremor, Vertigo, Weakness, Other Visual Disturbances, Other - Psychiatric Psychiatric: As Per HPI. absent: Abnormal Sleep Pattern, Anhedonia, Anxiety, Auditory Hallucinations, Behavioral Changes, Change in Appetite, Change in Libido, Confusion, Depression, Difficulty Concentrating, Hallucinations, Homicidal Ideation, Hopelessness, Irritability, Memory Loss, Mood Swings, Panic Attacks, Paranoia, Suicidal Ideation, Visual Hallucinations, Tactile Hallucinations, Other - Endocrine Endocrine: As Per HPI. absent: Change in Body Appearance, Change in Libido, Cold Intolorance, Deepening of Voice, Excessive Sweating, Fatigue, Flushing, Heat Intolorance, Increase in Ring/Shoe/Hat Size, Palpitations, Polydipsia, Polyphagia, Polyuria, Other - Hematologic/Lymphatic Hematologic: As Per HPI. absent: Easy Bleeding, Easy Bruising, Lymphadenopathy, Other Past Patient History - Infectious Disease Hx of Infectious Diseases: None - Past Medical History & Family History Past Medical History?: Yes - Past Social History Smoking Status: Never Smoked Chewing Tobacco Use: No Cigar Use: No - CARDIAC Hx Congestive Heart Failure: Yes Hx Hypercholesterolemia: Yes Hx Hypertension: Yes Hx Pacemaker: Yes - PULMONARY Hx Respiratory Disorders: No - NEUROLOGICAL Hx Neurological Disorder: No - HEENT Hx HEENT Problems: No - RENAL Hx Chronic Kidney Disease: No - ENDOCRINE/METABOLIC Hx Diabetes Mellitus Type 2: Yes - HEMATOLOGICAL/ONCOLOGICAL Hx Blood Disorders: No - INTEGUMENTARY Hx Dermatological Problems: No - MUSCULOSKELETAL/RHEUMATOLOGICAL Hx Musculoskeletal Disorders: Yes Hx Arthritis: Yes Hx Falls: No - GASTROINTESTINAL Hx Gastrointestinal Disorders: No - GENITOURINARY/GYNECOLOGICAL Hx Genitourinary Disorders: No - PSYCHIATRIC Hx Psychophysiologic Disorder: No Hx Substance Use: No - SURGICAL HISTORY Hx Surgeries: Yes Hx Appendectomy: Yes - ANESTHESIA Hx Anesthesia: Yes Hx Anesthesia Reactions: No Hx Malignant Hyperthermia: No Meds Allergies/Adverse Reactions: Allergies Allergy/AdvReac Type Severity Reaction Status Date / Time No Known Allergies Allergy Verified 12/19/17 12:39 - Medications Medications: Current Medications Carvedilol (Coreg) 3.125 mg PO BID [facility] Last Admin: 12/19/17 19:02 Dose: 3.125 mg Enoxaparin Sodium (Lovenox) 40 mg SC DAILY [facility] Furosemide (Lasix) 40 mg IVP BID [facility] Last Admin: 12/19/17 19:01 Dose: 40 mg Guaifenesin/Dextromethorphan (Robitussin Dm) 5 ml PO Q4H PRN PRN Reason: Cough Last Admin: 12/20/17 02:39 Dose: 5 ml Pantoprazole Sodium (Protonix Ec Tab) 40 mg PO DAILY [facility] Sacubitril/Valsartan (Entresto 24 Mg-26 Mg) 1 tab PO BID [facility] Last Admin: 12/19/17 20:00 Dose: 1 tab Spironolactone (Aldactone) 100 mg PO DAILY [facility] Physical Exam - Constitutional Appears: Well - Head Exam Head Exam: ATRAUMATIC, NORMAL INSPECTION, NORMOCEPHALIC - Eye Exam Eye Exam: EOMI, Normal appearance, PERRL. absent: Conjunctival injection, Nystagmus, Periorbital swelling, Periorbital tenderness, Scleral icterus Pupil Exam: NORMAL ACCOMODATION, PERRL. absent: Fixed, Irregular, Miosis, Mydriatic, Unequal - ENT Exam ENT Exam: Mucous Membranes Moist, Normal Exam. absent: Mucous Membranes Dry, Normal External Ear Exam, Normal Oropharynx, TM's Normal Bilaterally - Neck Exam Neck exam: Positive for: Normal Inspection. Negative for: Full Rom, Lymphade nopathy, Meningismus, Tenderness, Thyromegaly - Respiratory Exam Respiratory Exam: Clear to Auscultation Bilateral, NORMAL BREATHING PATTERN. absent: Accessory Muscle Use, Chest Wall Tenderness, Decreased Breath Sounds, Prolonged Expiratory Phase, Rales, Rhonchi, Wheezes, Respiratory Distress, Stridor - Cardiovascular Exam Cardiovascular Exam: REGULAR RHYTHM, +S1, +S2, Systolic Murmur - GI/Abdominal Exam GI & Abdominal Exam: Distended, Normal Bowel Sounds, Soft. absent: Bruit, Diminished Bowel Sounds, Firm, Guarding, Hernia, Hyperactive Bowel Sounds, Hypoactive Bowel Sounds, Mass, Organomegaly, Pulsatile Mass, Rebound, Rigid, Tenderness - Rectal Exam Rectal Exam: Deferred - Extremities Exam Extremities exam: Positive for: pedal edema, tenderness, pedal pulses present - Back Exam Back exam: NORMAL INSPECTION. absent: CVA tenderness (L), CVA tenderness (R), FULL ROM, muscle spasm, paraspinal tenderness, rash noted, tenderness, vertebral tenderness - Neurological Exam Neurological exam: Alert, CN II-XII Intact, Normal Gait, Oriented x3, Reflexes Normal - Psychiatric Exam Psychiatric exam: Normal Affect, Normal Mood - Skin Skin Exam: Dry, Intact, Normal Color, Warm Results - Vital Signs Recent Vital Signs: Last Vital Signs Temp 97.7 F 12/19/17 23:15 Pulse 76 12/19/17 23:30 Resp 20 12/19/17 23:15 BP 116/77 12/19/17 23:15 Pulse Ox 96 12/19/17 23:15 - Labs Result Diagrams: 12/19/17 14:22 12/19/17 15:05 Labs: Laboratory Results - last 24 hr 12/19/17 12/19/17 12/19/17 14:22 14:22 15:05 WBC 6.9 RBC 3.89 L Hgb 9.6 L Hct 30.6 L MCV 78.7 L D MCH 24.6 L MCHC 31.2 L RDW 18.6 H Plt Count 201 MPV 8.1 Neut % (Auto) 68.6 Lymph % (Auto) 13.4 L Gosper % (Auto) 16.7 H Eos % (Auto) 0.8 Baso % (Auto) 0.5 Neut # (Auto) 4.7 Lymph # (Auto) 0.9 L Gosper # (Auto) 1.1 H Eos # (Auto) 0.1 Baso # (Auto) 0.0 PT 16.3 H INR 1.5 APTT 37 H Sodium 141 Potassium 5.3 H Chloride 103 Carbon Dioxide 28 Anion Gap 16 BUN 17 Creatinine 1.2 Est GFR ( Amer) > 60 Est GFR (Non-Af Amer) > 60 POC Glucose (mg/dL) Random Glucose 81 Calcium 8.5 L Total Bilirubin 1.3 AST 26 ALT 20 L D Alkaline Phosphatase 140 H Troponin I 0.0230 NT-Pro-B Natriuret Pep 6190 H Total Protein 8.5 H Albumin 4.2 Globulin 4.3 H Albumin/Globulin Ratio 1.0 12/19/17 21:25 WBC RBC Hgb Hct MCV MCH MCHC RDW Plt Count MPV Neut % (Auto) Lymph % (Auto) Gosper % (Auto) Eos % (Auto) Baso % (Auto) Neut # (Auto) Lymph # (Auto) Gosper # (Auto) Eos # (Auto) Baso # (Auto) PT INR APTT Sodium Potassium Chloride Carbon Dioxide Anion Gap BUN Creatinine Est GFR ( Amer) Est GFR (Non-Af Amer) POC Glucose (mg/dL) 148 H Random Glucose Calcium Total Bilirubin AST ALT Alkaline Phosphatase Troponin I NT-Pro-B Natriuret Pep Total Protein Albumin Globulin Albumin/Globulin Ratio Assessment & Plan (1) PHT (pulmonary hypertension) Status: Acute (2) Venous stasis Status: Acute (3) Nonhealing skin ulcer Status: Acute (4) CHF (congestive heart failure) Status: Chronic Priority: Medium - Assessment and Plan (Free Text) Plan: aggressive diuretics as ordered. will add asa. monitor cr. improving.
--- NOTE | 2017-12-20 08:21 | CP.PCM.CON ---
History of Present Illness - History of Present Illness History of Present Illness: Podiatry - Dr. Montoya 67 year old male patient seen and evaluated at bedside for bilateral lower extremity venous stasis ulcerations. Patient states he was sent to ED by Dr. Montoya for CHF exacerbation and worsening lower extremity ulcers. Patient states he has had the ulcers on/off for approximately 6 months that were improving until a couple weeks ago when he noticed increase drainage/weeping to his left leg wounds. Patient ambulates the assistance of a walker and admits to feeling shortness of breath and has to take a break after taking 15 steps. At present, patient reports constant 7/10 pain to lower extremity wounds. Patient also complains of shortness of breath, generalized body swelling. Denies n/v/f/d/c/cp/da silva. PMH:CHF, HTN, DM2, liver cirrhosis, pleural effusions PSH: Defibrillator/pacemaker (2011), multiple paracentesis/thoracentesis Family history: T2DM (grandfather) Social History: Denies tobacco/illicit drug use Drinks 1 glass of wine 3 times a week but used to drink 12 beers per day for 30 years (quit many years ago) Allergies: NKDA Review of Systems - Review of Systems All systems: reviewed and no additional remarkable complaints except (as per HPI) Past Patient History - Infectious Disease Hx of Infectious Diseases: None - Past Medical History & Family History Past Medical History?: Yes - Past Social History Smoking Status: Never Smoked - CARDIAC Hx Congestive Heart Failure: Yes Hx Hypercholesterolemia: Yes Hx Hypertension: Yes Hx Pacemaker: Yes - PULMONARY Hx Respiratory Disorders: No - NEUROLOGICAL Hx Neurological Disorder: No - HEENT Hx HEENT Problems: No - RENAL Hx Chronic Kidney Disease: No - ENDOCRINE/METABOLIC Hx Diabetes Mellitus Type 2: Yes - HEMATOLOGICAL/ONCOLOGICAL Hx Blood Disorders: No - INTEGUMENTARY Hx Dermatological Problems: No - MUSCULOSKELETAL/RHEUMATOLOGICAL Hx Musculoskeletal Disorders: Yes Hx Arthritis: Yes Hx Falls: No - GASTROINTESTINAL Hx Gastrointestinal Disorders: No - GENITOURINARY/GYNECOLOGICAL Hx Genitourinary Disorders: No - PSYCHIATRIC Hx Psychophysiologic Disorder: No Hx Substance Use: No - SURGICAL HISTORY Hx Surgeries: Yes Hx Appendectomy: Yes - ANESTHESIA Hx Anesthesia: Yes Hx Anesthesia Reactions: No Hx Malignant Hyperthermia: No Meds Allergies/Adverse Reactions: Allergies Allergy/AdvReac Type Severity Reaction Status Date / Time No Known Allergies Allergy Verified 12/19/17 12:39 - Medications Medications: Current Medications Carvedilol (Coreg) 3.125 mg PO BID [facility] Last Admin: 12/19/17 19:02 Dose: 3.125 mg Enoxaparin Sodium (Lovenox) 40 mg SC DAILY [facility] Furosemide (Lasix) 40 mg IVP BID [facility] Last Admin: 12/19/17 19:01 Dose: 40 mg Guaifenesin/Dextromethorphan (Robitussin Dm) 5 ml PO Q4H PRN PRN Reason: Cough Last Admin: 12/20/17 02:39 Dose: 5 ml Pantoprazole Sodium (Protonix Ec Tab) 40 mg PO DAILY [facility] Sacubitril/Valsartan (Entresto 24 Mg-26 Mg) 1 tab PO BID [facility] Last Admin: 12/19/17 20:00 Dose: 1 tab Spironolactone (Aldactone) 100 mg PO DAILY [facility] Physical Exam - Constitutional Appears: No Acute Distress - Extremities Exam Additional comments: Lower extremity focused. Dressings, clean, dry, and intact. VASC: DP pulses palpable 2/4 b/l. PT pulses weakly palpable 1/4. +2 pitting edema noted to legs b/l. CFT <3 seconds to all digits. Varicosities present b/l. NEURO: Protective sensation grossly diminished b/l. DERM: LLE=Full thickness ulceration noted to lateral midleg measuring approximately 5 x 2 x 0.1 cm - ulcer is noted to have an 85% granular 15% fibrotic base with erythema periwound; minimal serosanguinous drainage present; no purulence; no fluctuance; no undermining; no tunneling noted. Ulceration #2 noted to posterior lower leg measuring approximately 1.5 x 1 x 0.1 cm - ulcer noted to have a mixed fibrogranular base and minimal erythema periwound; minimal serosanguinous drainage present; no purulence; no fluctuance; no undermining; no tunneling. RLE=Pre-ulcerative lesions noted to posterior calf with overlying crust; no drainage; no purulence; no fluctuance. ORTHO: Pain on palpation noted to ulcers and pre-ulcerative lesions. Muscle strength 5/5 for all dorsiflexors, plantarflexors, inverters, and everters. Pain upon calf squeeze b/l. - Neurological Exam Neurological exam: Alert, Oriented x3 - Psychiatric Exam Psychiatric exam: Normal Affect, Normal Mood Results - Vital Signs Recent Vital Signs: Last Vital Signs Temp 97.7 F 12/19/17 23:15 Pulse 76 12/19/17 23:30 Resp 20 12/19/17 23:15 BP 116/77 12/19/17 23:15 Pulse Ox 96 12/19/17 23:15 - Labs Result Diagrams: 12/20/17 11:29 12/20/17 11:29 Labs: Laboratory Results - last 24 hr 12/19/17 12/19/17 12/19/17 14:22 14:22 15:05 WBC 6.9 RBC 3.89 L Hgb 9.6 L Hct 30.6 L MCV 78.7 L D MCH 24.6 L MCHC 31.2 L RDW 18.6 H Plt Count 201 MPV 8.1 Neut % (Auto) 68.6 Lymph % (Auto) 13.4 L Archuleta % (Auto) 16.7 H Eos % (Auto) 0.8 Baso % (Auto) 0.5 Neut # (Auto) 4.7 Lymph # (Auto) 0.9 L [place] # (Auto) 1.1 H Eos # (Auto) 0.1 Baso # (Auto) 0.0 PT 16.3 H INR 1.5 APTT 37 H Sodium 141 Potassium 5.3 H Chloride 103 Carbon Dioxide 28 Anion Gap 16 BUN 17 Creatinine 1.2 Est GFR ( Amer) > 60 Est GFR (Non-Af Amer) > 60 POC Glucose (mg/dL) Random Glucose 81 Calcium 8.5 L Total Bilirubin 1.3 AST 26 ALT 20 L D Alkaline Phosphatase 140 H Troponin I 0.0230 NT-Pro-B Natriuret Pep 6190 H Total Protein 8.5 H Albumin 4.2 Globulin 4.3 H Albumin/Globulin Ratio 1.0 12/19/17 21:25 WBC RBC Hgb Hct MCV MCH MCHC RDW Plt Count MPV Neut % (Auto) Lymph % (Auto) Archuleta % (Auto) Eos % (Auto) Baso % (Auto) Neut # (Auto) Lymph # (Auto) Archuleta # (Auto) Eos # (Auto) Baso # (Auto) PT INR APTT Sodium Potassium Chloride Carbon Dioxide Anion Gap BUN Creatinine Est GFR ( Amer) Est GFR (Non-Af Amer) POC Glucose (mg/dL) 148 H Random Glucose Calcium Total Bilirubin AST ALT Alkaline Phosphatase Troponin I NT-Pro-B Natriuret Pep Total Protein Albumin Globulin Albumin/Globulin Ratio Assessment & Plan - Assessment and Plan (Free Text) Assessment: 67 year old male with LLE venous stasis ulcerations, RLE pre-ulcerative lesions Plan: Patient seen and evaluated Discussed with attending, Dr. Montoya Afebrile, WBC 7.1 Arterial duplex ordered b/l Venous duplex ordered b/l Bactroban ordered QD dressing changes - bactroban, xeroform, DSD Activity - WBAT; PT ordered Podiatry will continue to follow
[2017-12-20] MEDS: Enoxaparin 40 mg Syringe SC SCH (09:52)
[2017-12-20] MEDS: Sacubitril/Valsartan 24-26mg Tab PO SCH ×2 (09:53→18:17)
[2017-12-20] MEDS: Pantoprazole 40 mg EC Tab PO SCH (09:53)
--- NOTE | 2017-12-20 11:38 | CP.PCM.PN ---
Subjective - Date & Time of Evaluation Date of Evaluation: 12/20/17 Time of Evaluation: 09:15 - Subjective Subjective: PGY-[address] Roca Patient is seen and examined sitting in bed. Patient continues to cough, which he reports having excessive episodes throughout the night that will last an hour. Patient says he was able to lay down last night with no complains. Patient continues to feel short of breath at times. Patient was seen walking in hallway with a walker. Patient denies fever, chills, nausea, vomiting, diarrhea, constipation, or trouble urinating. Objective - Vital Signs/Intake and Output Vital Signs (last 24 hours): Temp Pulse Resp BP Pulse Ox 97.7 F 75 20 133/78 94 L 12/20/17 07:00 12/20/17 07:00 12/20/17 07:00 12/20/17 09:54 12/20/17 07:00 Intake and Output: 12/20/17 12/20/17 06:59 18:59 Output Total 300 Balance -300 - Medications Medications: Current Medications Aspirin (Aspirin Chewable) 81 mg PO DAILY [facility] Last Admin: 12/20/17 09:18 Dose: 81 mg Carvedilol (Coreg) 3.125 mg PO BID [facility] Last Admin: 12/20/17 09:53 Dose: 3.125 mg Enoxaparin Sodium (Lovenox) 40 mg SC DAILY [facility] Last Admin: 12/20/17 09:52 Dose: 40 mg Furosemide (Lasix) 40 mg IVP BID [facility] Last Admin: 12/20/17 09:54 Dose: 40 mg Guaifenesin/Dextromethorphan (Robitussin Dm) 5 ml PO Q4H PRN PRN Reason: Cough Last Admin: 12/20/17 02:39 Dose: 5 ml Pantoprazole Sodium (Protonix Ec Tab) 40 mg PO DAILY [facility] Last Admin: 12/20/17 09:53 Dose: 40 mg Sacubitril/Valsartan (Entresto 24 Mg-26 Mg) 1 tab PO BID [facility] Last Admin: 12/20/17 09:53 Dose: 1 tab Spironolactone (Aldactone) 100 mg PO DAILY [facility] Last Admin: 12/20/17 09:53 Dose: 100 mg - Labs Labs: 12/19/17 14:22 12/19/17 15:05 PT 16.3 SECONDS (9.7-12.2) H 12/19/17 14:22 INR 1.5 12/19/17 14:22 APTT 37 SECONDS (21-34) H 12/19/17 14:22 - Constitutional Appears: No Acute Distress - Head Exam Head Exam: ATRAUMATIC, NORMAL INSPECTION, NORMOCEPHALIC - Eye Exam Eye Exam: EOMI, Normal appearance - ENT Exam ENT Exam: Mucous Membranes Moist, Normal Exam - Neck Exam Neck Exam: Full ROM, Normal Inspection - Respiratory Exam Respiratory Exam: Clear to Ausculation Bilateral, NORMAL BREATHING PATTERN - Cardiovascular Exam Cardiovascular Exam: REGULAR RHYTHM, +S1, +S2 - GI/Abdominal Exam GI & Abdominal Exam: Distended, Firm, Normal Bowel Sounds. absent: Soft, Tenderness - Extremities Exam Extremities Exam: Full ROM. absent: Tenderness Additional comments: bilateral lower extremities wrapped in dressing, clean, dry and intact - Back Exam Back Exam: NORMAL INSPECTION - Neurological Exam Neurological Exam: Alert, Awake, Oriented x3 - Psychiatric Exam Psychiatric exam: Normal Affect, Normal Mood - Skin Skin Exam: Dry, Intact, Normal Color, Warm Assessment and Plan - Assessment and Plan (Free Text) Plan: Acute on Chronic, combined systolic and diastolic CHF Cardiology consulted, Dr. Rouse Admit to telemetry CXR (12/19): * Chronic changes as above: Cardiomegaly and pulmonary venous congestion-the latter slightly decreased compared the prior study. * Small bilateral pleural effusions-that on the right probably less now than before. * Pacemaker in place EKG: Ventricularly paced rhythm @ 75bpm ECHO 07/2017 10-20% grade III diastolic dysfunction BNP (12/19): 6,190 (previous on 08/29: 4,730) Strict I's and O's * Fluid Restriction - 1 Liter Medications: * Entresto 24mg-26mg tab PO BID * Coreg 3.125 mg PO BID * Lasix 40mg IVP BID * Aldactone 100 mg PO daily Cough possible bronchitis - Sputum culture - F/U - Duoneb Q4 - Azithromycin 500mg IVPB Q daily for 5 days Chronic LE leg ulceration with edema Podiatry consulted, Dr. Montoya Chronic ulcers improving draining serous fluid b/l No erythema, afebrile and no leukocytosis - no abx indicated at this time. Blood cultures - no growth after 24 hours Liver cirrhosis with ascites and history of multiple paracentesis/thoracentesis from effusion IR consulted, Dr. Randle - paracentesis today - f/u results and recs - ordered limited abdominal sonogram for paracentesis history of ETOH abuse Medications: * Lasix 40mg IVP BID * Aldactone 100 mg PO daily Diabetes - questionable noted in chart but patient denies and does not currently take any medications Diet: heart healthy diet with fluid restriction. Hgb A1c pending * Hgb A1c 6.1 on 07/19/17 Prophylactic Care SCD contraindicated due to leg ulcerations Lovenox 40mg SC daily Protonix 40mg PO daily
[2017-12-20 11:45] LABS: BASO % 0.3 % (0.0-2.0); EOS # 0.1 K/uL (0.0-0.7); EOS % 1.6 % (0.0-4.0); HEMOGLOBIN 9.6 g/dL (12.0-18.0); LYMPH # 1.3 K/uL (1.0-4.3); LYMPH % 17.9 % (20.0-40.0); MEAN CELL VOLUME 79.3 fL (80.0-94.0); MEAN CORPUSCULAR HEMOGLOBIN 25.2 pg (27.0-31.0); MEAN CORPUSCULAR HGB CONC 31.8 g/dL (33.0-37.0); MEAN PLATELET VOLUME 8.3 fL (7.2-11.7); MONO # 1.1 K/uL (0.0-0.8); MONO % 15.1 % (0.0-10.0); NEUT # 4.7 K/uL (1.8-7.0); NEUT % 65.1 % (50.0-75.0); NRBC % 0.1 % (0.0-2.0); RBC 3.82 Mil/uL (4.40-5.90); RED CELL DISTRIBUTION WIDTH 18.3 % (11.5-14.5); WHITE BLOOD COUNT 7.1 K/uL (4.8-10.8)
--- NOTE | 2017-12-20 11:55 | US ---
Date of Procedure: 12/20/2017 PROCEDURE: LIMITED ULTRASOUND FOR PARACENTESIS. HISTORY: Nondistention TECHNIQUE: Limited ultrasound the abdomen is performed with a curved probe for purposes of paracentesis. There is scant ascites present. There is insufficient ascites for paracentesis. IMPRESSION: Insufficient ascites for paracentesis.
[2017-12-20 12:36] LABS: ALB/GLOB RATIO 0.9 (1.0-2.1); ALT/SGPT 14 U/L (21-72); AST/SGOT 27 U/L (17-59); BLOOD UREA NITROGEN 20 mg/dL (9-20); CALCIUM 8.7 mg/dl (8.6-10.4); GFR NON-AFRICAN AMERICAN > 60
--- NOTE | 2017-12-20 17:14 | PQF ---
Electronically signed by: Rufus Roca MD 12/20/2017 5:10 PM
[2017-12-20] MEDS: Azithromycin 500 MG in Sodium Chloride 0.9% 250 ML IVPB SCH (19:27)
[2017-12-20] MEDS: Albuterol-Ipratrop 3 mg / 0.5 (3 ml) UD INH SCH ×2 (19:52→23:47)
[2017-12-21] MEDS: guaiFENesin DM 100 mg-10 mg/5 ml UD PO PRN ×4 (02:51→20:00)
[2017-12-21] MEDS: Albuterol-Ipratrop 3 mg / 0.5 (3 ml) UD INH SCH ×5 (03:05→23:27)
[2017-12-21 08:53] LABS: BASO % 0.4 % (0.0-2.0); EOS # 0.2 K/uL (0.0-0.7); EOS % 2.6 % (0.0-4.0); HEMOGLOBIN 9.4 g/dL (12.0-18.0); LYMPH # 1.1 K/uL (1.0-4.3); LYMPH % 18.1 % (20.0-40.0); MEAN CELL VOLUME 79.3 fL (80.0-94.0); MEAN CORPUSCULAR HEMOGLOBIN 24.6 pg (27.0-31.0); MEAN PLATELET VOLUME 7.8 fL (7.2-11.7); MONO # 0.9 K/uL (0.0-0.8); NEUT # 3.8 K/uL (1.8-7.0); NEUT % 63.9 % (50.0-75.0); NRBC % 0.1 % (0.0-2.0); RBC 3.81 Mil/uL (4.40-5.90); RED CELL DISTRIBUTION WIDTH 18.6 % (11.5-14.5)
[2017-12-21 09:07] LABS: ALB/GLOB RATIO 0.9 (1.0-2.1); ALBUMIN 3.7 g/dL (3.5-5.0); ALT/SGPT 10 U/L (21-72); AST/SGOT 21 U/L (17-59); BLOOD UREA NITROGEN 18 mg/dL (9-20); CALCIUM 8.1 mg/dl (8.6-10.4); GFR NON-AFRICAN AMERICAN > 60
[2017-12-21] MEDS ORDERED: Azithromycin 500 MG in Sodium Chloride 0.9% 250 ML IVPB SCH (10:00)
[2017-12-21] MEDS: Pantoprazole 40 mg EC Tab PO SCH (10:26)
[2017-12-21] MEDS: Sacubitril/Valsartan 24-26mg Tab PO SCH ×2 (10:27→17:43)
[2017-12-21] MEDS: Enoxaparin 40 mg Syringe SC SCH (10:35)
--- NOTE | 2017-12-21 12:23 | CP.PCM.PN ---
Subjective - Date & Time of Evaluation Date of Evaluation: 12/21/17 Time of Evaluation: 10:45 - Subjective Subjective: Podiatry progress notes for attending Dr. Montoya; 67 year old male patient seen and evaluated at bedside for bilateral lower extremity venous stasis ulcerations. Patient was setting in his bed and NAD. Patient is AAO X 3. Patient states that he still has pain in his ulceration areas but less than yesterday.. Patient also complains of shortness of breath, generalized body swelling. Patient denies any overnight F/N/V or C. Objective - Vital Signs/Intake and Output Vital Signs (last 24 hours): Temp Pulse Resp BP Pulse Ox 98.4 F 76 20 131/82 94 L 12/21/17 07:00 12/21/17 08:00 12/21/17 07:00 12/21/17 10:25 12/21/17 07:00 Intake and Output: 12/21/17 12/21/17 06:59 18:59 Intake Total 730 Output Total 300 Balance 430 - Medications Medications: Current Medications Albuterol/Ipratropium (Duoneb 3 Mg/0.5 Mg (3 Ml) Ud) 3 ml INH RQ4 [facility] Last Admin: 12/21/17 09:02 Dose: Not Given Aspirin (Aspirin Chewable) 81 mg PO DAILY [facility] Last Admin: 12/21/17 10:27 Dose: 81 mg Carvedilol (Coreg) 3.125 mg PO BID [facility] Last Admin: 12/21/17 10:27 Dose: 3.125 mg Enoxaparin Sodium (Lovenox) 40 mg SC DAILY [facility] Last Admin: 12/21/17 10:35 Dose: 40 mg Furosemide (Lasix) 40 mg IVP BID [facility] Last Admin: 12/21/17 10:25 Dose: 40 mg Guaifenesin/Dextromethorphan (Robitussin Dm) 5 ml PO Q4H PRN PRN Reason: Cough Last Admin: 12/21/17 08:32 Dose: 5 ml Azithromycin 500 mg/ Sodium (Chloride) 250 mls @ 250 mls/hr IVPB Q24H [facility]; Protocol Last Admin: 12/20/17 19:27 Dose: 250 mls/hr Mupirocin (Bactroban Ointment) 0 gm TOP DAILY [facility] Last Admin: 10/06/18 11:08 Dose: Not Given Pantoprazole Sodium (Protonix Ec Tab) 40 mg PO DAILY [facility] Last Admin: 12/21/17 10:26 Dose: 40 mg Sacubitril/Valsartan (Entresto 24 Mg-26 Mg) 1 tab PO BID [facility] Last Admin: 12/21/17 10:27 Dose: 1 tab Spironolactone (Aldactone) 100 mg PO DAILY [facility] Last Admin: 12/21/17 10:26 Dose: 100 mg - Labs Labs: 12/21/17 08:46 12/21/17 08:46 PT 16.3 SECONDS (9.7-12.2) H 12/19/17 14:22 INR 1.5 12/19/17 14:22 APTT 37 SECONDS (21-34) H 12/19/17 14:22 - Constitutional Appears: Well, Non-toxic, No Acute Distress - Head Exam Head Exam: ATRAUMATIC, NORMOCEPHALIC - Extremities Exam Additional comments: Lower extremity focused exam: Vasc: DP pulses palpable 2/4 b/l. PT pulses weakly palpable 1/4. +2 pitting edema noted to legs b/l. CFT <3 seconds to all digits. Varicosities present b/l. Neuro: Protective sensation grossly diminished b/l. Derm: Left LE: Full thickness ulceration noted to lateral midleg measuring approxi mately 5 x 2 x 0.1 cm - ulcer is noted to have an granular and fibrotic 85:15 base with periwound erythema ; minimal sero-sanguinous drainage present; no purulence; no fluctuance; no undermining; no tunneling noted. Ulceration #2 noted to posterior lower leg measuring approximately 1.5 x 1 x 0.1 cm - ulcer noted to have a mixed fibrogranular base and minimal erythema periwound; minimal sero-sanguinous drainage present; no purulence; no fluctuance; no undermining; no tunneling. Right LE=Pre-ulcerative lesions noted to posterior calf with overlying crust; no drainage; no purulence; no fluctuance. MSK: Pain on palpation noted to ulcers and pre-ulcerative lesions b/l. Muscle strength 5/5 for all groups b/l. Pain upon calf squeeze b/l. - Neurological Exam Neurological Exam: Alert, Awake, Oriented x3 - Psychiatric Exam Psychiatric exam: Normal Affect, Normal Mood Assessment and Plan - Assessment and Plan (Free Text) Assessment: 67 year old male with LLE venous stasis ulcerations, RLE pre-ulcerative lesions Plan: Patient seen and evaluated at the bedside with Dr. Montoya Discussed plan with attending, Dr. Montoya Chart, Labs and vitals reviewed; Afebrile, WBC 6.0 Arterial duplex: Pending official report Venous duplex pending Dressing changed today using: xeroform, DSD Activity - WBAT. Podiatry will continue to follow up the patient while in house.
--- NOTE | 2017-12-21 17:55 | CP.PCM.PN ---
Subjective - Date & Time of Evaluation Date of Evaluation: 12/21/17 Time of Evaluation: 17:54 - Subjective Subjective: PGY-[address] Marshall Patient is seen and examined at bedside. Patient was walking using walker. Patient continues to complain of coughing that comes and goes. Patient was coughing last night. Patient continues to experience chest pain and shortness of breath when walking. Patient denies fever, chills, nausea, vomiting, diarrhea or constipation Objective - Vital Signs/Intake and Output Vital Signs (last 24 hours): Temp Pulse Resp BP Pulse Ox 97.6 F 70 20 130/74 98 12/21/17 15:00 12/21/17 15:00 12/21/17 15:00 12/21/17 17:43 12/21/17 15:00 Intake and Output: 12/21/17 12/21/17 06:59 18:59 Intake Total 730 720 Output Total 300 1000 Balance 430 -280 - Medications Medications: Current Medications Albuterol/Ipratropium (Duoneb 3 Mg/0.5 Mg (3 Ml) Ud) 3 ml INH RQ4 [facility] Last Admin: 12/21/17 12:10 Dose: 3 ml Aspirin (Aspirin Chewable) 81 mg PO DAILY [facility] Last Admin: 12/21/17 10:27 Dose: 81 mg Benzonatate (Tessalon Perles) 100 mg PO TID [facility] Carvedilol (Coreg) 3.125 mg PO BID [facility] Last Admin: 12/21/17 17:43 Dose: 3.125 mg Enoxaparin Sodium (Lovenox) 40 mg SC DAILY [facility] Last Admin: 12/21/17 10:35 Dose: 40 mg Furosemide (Lasix) 40 mg IVP BID [facility] Last Admin: 12/21/17 17:43 Dose: 40 mg Guaifenesin/Dextromethorphan (Robitussin Dm) 10 ml PO Q4H PRN PRN Reason: Cough Azithromycin 500 mg/ Sodium (Chloride) 250 mls @ 250 mls/hr IVPB Q24H [facility]; Protocol Last Admin: 12/20/17 19:27 Dose: 250 mls/hr Mupirocin (Bactroban Ointment) 0 gm TOP DAILY [facility] Last Admin: 12/21/17 11:08 Dose: Not Given Pantoprazole Sodium (Protonix Ec Tab) 40 mg PO DAILY [facility] Last Admin: 12/21/17 10:26 Dose: 40 mg Sacubitril/Valsartan (Entresto 24 Mg-26 Mg) 1 tab PO BID [facility] Last Admin: 12/21/17 17:43 Dose: 1 tab Spironolactone (Aldactone) 100 mg PO DAILY [facility] Last Admin: 12/21/17 10:26 Dose: 100 mg - Labs Labs: 12/21/17 08:46 12/21/17 08:46 PT 16.3 SECONDS (9.7-12.2) H 12/19/17 14:22 INR 1.5 12/19/17 14:22 APTT 37 SECONDS (21-34) H 12/19/17 14:22 - Constitutional Appears: Non-toxic, No Acute Distress - Head Exam Head Exam: ATRAUMATIC, NORMAL INSPECTION, NORMOCEPHALIC - Eye Exam Eye Exam: EOMI, Normal appearance - ENT Exam ENT Exam: Mucous Membranes Moist, Normal Exam - Respiratory Exam Respiratory Exam: Clear to Ausculation Bilateral, NORMAL BREATHING PATTERN. absent: Accessory Muscle Use, Respiratory Distress - Cardiovascular Exam Cardiovascular Exam: REGULAR RHYTHM, +S1, +S2 - GI/Abdominal Exam GI & Abdominal Exam: Distended, Normal Bowel Sounds. absent: Tenderness - Extremities Exam Extremities Exam: Full ROM, Normal Inspection Additional comments: bilateral lower extremities wrapped in dressing, clean, dry and intact - Back Exam Back Exam: Full ROM, NORMAL INSPECTION - Neurological Exam Neurological Exam: Alert, Awake, Oriented x3 - Psychiatric Exam Psychiatric exam: Normal Affect, Normal Mood - Skin Skin Exam: Dry, Intact, Normal Color, Warm Assessment and Plan - Assessment and Plan (Free Text) Plan: Acute on Chronic, combined systolic and diastolic CHF Cardiology consulted, Dr. Rouse - follow up recs CXR (12/19): * Chronic changes as above: Cardiomegaly and pulmonary venous congestion-the latter slightly decreased compared the prior study. * Small bilateral pleural effusions-that on the right probably less now than before. * Pacemaker in place EKG: Ventricularly paced rhythm @ 75bpm ECHO 07/2017 10-20% grade III diastolic dysfunction BNP (12/19): 6,190 (previous on 08/29: 4,730) Strict I's and O's * Fluid Restriction - 1 Liter Medications: * Entresto 24mg-26mg tab PO BID * Coreg 3.125 mg PO BID * Lasix 40mg IVP BID * Aldactone 100 mg PO daily Follow up lipid panel Cough possible bronchitis - Sputum culture - pending - Duoneb Q4 - Azithromycin 500mg IVPB Q daily for 5 days - Robitussin DM 10ml Q4 - Tessalon pearls 100 mg PO TID Chronic LE leg ulceration with edema Podiatry consulted, Dr. Montoya - Dressing changed today using: xeroform, DSD, Arterial duplex: Pending official report, Venous duplex pending -Mupirocin 2% ointment -to be applied to LE wounds Activity - WBAT - Venous and arterial doppler - F/U official report Liver cirrhosis with ascites and history of multiple paracentesis/thoracentesis from effusion - limited abdominal sonogram for paracentesis - Insufficient ascites for paracentesis IR consulted, Dr. Randle - paracentesis not done - follow up recs history of ETOH abuse Medications: * Lasix 40mg IVP BID * Aldactone 100 mg PO daily Diabetes - questionable noted in chart but patient denies and does not currently take any medications Diet: heart healthy diet with fluid restriction. Hgb A1c pending * Hgb A1c 6.1 on 07/19/17 Prophylactic Care SCD contraindicated due to leg ulcerations Lovenox 40mg SC daily Protonix 40mg PO daily Plan discussed with Dr Joanna Henriquez, PGY-1
[2017-12-21] MEDS: Azithromycin 500 MG in Sodium Chloride 0.9% 250 ML IVPB SCH (22:18)
[2017-12-22] MEDS: Albuterol-Ipratrop 3 mg / 0.5 (3 ml) UD INH SCH ×6 (03:04→23:34)
[2017-12-22 07:25] LABS: BASO % 0.3 % (0.0-2.0); EOS # 0.2 K/uL (0.0-0.7); EOS % 3.3 % (0.0-4.0); HEMOGLOBIN 9.3 g/dL (12.0-18.0); LYMPH # 1.3 K/uL (1.0-4.3); LYMPH % 20.7 % (20.0-40.0); MEAN CELL VOLUME 78.5 fL (80.0-94.0); MEAN CORPUSCULAR HEMOGLOBIN 24.8 pg (27.0-31.0); MEAN CORPUSCULAR HGB CONC 31.6 g/dL (33.0-37.0); MONO # 0.9 K/uL (0.0-0.8); MONO % 14.6 % (0.0-10.0); NEUT # 3.8 K/uL (1.8-7.0); NEUT % 61.1 % (50.0-75.0); RBC 3.75 Mil/uL (4.40-5.90); RED CELL DISTRIBUTION WIDTH 18.7 % (11.5-14.5); WHITE BLOOD COUNT 6.2 K/uL (4.8-10.8)
[2017-12-22 07:38] LABS: ALB/GLOB RATIO 0.9 (1.0-2.1); ALBUMIN 3.7 g/dL (3.5-5.0); ALT/SGPT 11 U/L (21-72); AST/SGOT 20 U/L (17-59); BLOOD UREA NITROGEN 20 mg/dL (9-20); CALCIUM 8.4 mg/dl (8.6-10.4); GFR NON-AFRICAN AMERICAN > 60; HDL CHOLESTEROL 24 mg/dL (30-70)
[2017-12-22] MEDS: guaiFENesin DM 100 mg-10 mg/5 ml UD PO PRN (07:41)
[2017-12-22 07:49] LABS: LDL CHOLESTEROL 39 mg/dL (0-129)
[2017-12-22] MEDS: Sacubitril/Valsartan 24-26mg Tab PO SCH ×2 (09:09→17:21)
[2017-12-22] MEDS: Enoxaparin 40 mg Syringe SC SCH (09:10)
[2017-12-22] MEDS: Pantoprazole 40 mg EC Tab PO SCH (09:11)
--- NOTE | 2017-12-22 13:04 | CP.PCM.PN ---
Subjective - Date & Time of Evaluation Date of Evaluation: 12/22/17 Time of Evaluation: 09:45 - Subjective Subjective: Podiatry progress notes for attending Dr. Montoya; 67 year old male patient seen and evaluated at bedside for bilateral lower extremity venous stasis ulcerations. Patient was setting in his bed and NAD. Patient is AAO X 3. Patient states that he yesterday he had pain in his ulceration areas that not controlled by medications. . Patient denies any overnight F/N/V or C. Patient denies any other pedal complains at this time. Objective - Vital Signs/Intake and Output Vital Signs (last 24 hours): Temp Pulse Resp BP Pulse Ox 97.4 F L 72 20 132/69 95 12/21/17 23:10 12/21/17 23:10 12/21/17 23:10 12/22/17 09:10 12/21/17 23:10 Intake and Output: 12/22/17 12/22/17 06:59 18:59 Intake Total 300 Output Total 1550 Balance -1250 - Medications Medications: Current Medications Albuterol/Ipratropium (Duoneb 3 Mg/0.5 Mg (3 Ml) Ud) 3 ml INH RQ4 [facility] Last Admin: 12/22/17 12:58 Dose: 3 ml Aspirin (Aspirin Chewable) 81 mg PO DAILY [facility] Last Admin: 12/22/17 09:11 Dose: 81 mg Benzonatate (Tessalon Perles) 100 mg PO TID [facility] Last Admin: 12/22/17 09:11 Dose: 100 mg Carvedilol (Coreg) 3.125 mg PO BID [facility] Last Admin: 12/22/17 09:11 Dose: 3.125 mg Enoxaparin Sodium (Lovenox) 40 mg SC DAILY [facility] Last Admin: 12/22/17 09:10 Dose: 40 mg Furosemide (Lasix) 40 mg IVP BID [facility] Last Admin: 12/22/17 09:10 Dose: 40 mg Guaifenesin/Dextromethorphan (Robitussin Dm) 10 ml PO Q4H PRN PRN Reason: Cough Last Admin: 12/22/17 07:41 Dose: 10 ml Mupirocin (Bactroban Ointment) 0 gm TOP DAILY [facility] Last Admin: 12/22/17 09:11 Dose: 1 applic Pantoprazole Sodium (Protonix Ec Tab) 40 mg PO DAILY [facility] Last Admin: 12/22/17 09:11 Dose: 40 mg Sacubitril/Valsartan (Entresto 24 Mg-26 Mg) 1 tab PO BID [facility] Last Admin: 12/22/17 09:09 Dose: 1 tab Spironolactone (Aldactone) 100 mg PO DAILY [facility] Last Admin: 12/22/17 10:00 Dose: 100 mg - Labs Labs: 12/22/17 07:16 12/22/17 07:16 PT 16.3 SECONDS (9.7-12.2) H 12/19/17 14:22 INR 1.5 12/19/17 14:22 APTT 37 SECONDS (21-34) H 12/19/17 14:22 - Constitutional Appears: Well, Non-toxic, No Acute Distress - Head Exam Head Exam: ATRAUMATIC, NORMOCEPHALIC - Extremities Exam Additional comments: Lower extremity focused exam: Vasc: DP pulses palpable 2/4 b/l. PT pulses weakly palpable 1/4. +1 pitting edema noted to legs b/l. Cap refill <3 seconds to all digits. Multiple varicosities present b/l. Neuro: Protective sensation grossly diminished b/l. Derm: Left LE: Full thickness ulceration noted to lateral midleg measuring approximately 5 x 2 x 0.1 cm - ulcer is noted to have an granular and fibrotic 85:15 base with periwound erythema ; minimal serous drainage present; no purulence; no fluctuance; no undermining; no tunneling noted. Ulceration #2 not ed to posterior lower leg measuring approximately 1.5 x 1 x 0.1 cm - ulcer noted to have a mixed fibrogranular base and minimal erythema john-wound; minimal seroous drainage present; no purulence; no fluctuance; no undermining; no tunneling. Right LE: small ulcerative lesions noted to posterior calf. no drainage; no purulence; no fluctuance. no erythema. No underming or tracking. MSK: Pain on palpation noted to ulcers b/l. Muscle strength 5/5 for all groups b/l. No pain upon calf squeeze b/l today. - Neurological Exam Neurological Exam: Alert, Awake, Oriented x3 - Psychiatric Exam Psychiatric exam: Normal Affect, Normal Mood Assessment and Plan - Assessment and Plan (Free Text) Assessment: 67 year old male with B/L LE venous stasis ulcerations Plan: Patient seen and evaluated at the bedside with Dr. Montoya Discussed plan with attending, Dr. Montoya Chart, Labs and vitals reviewed; Afebrile, WBC 6.2 Arterial duplex: Pending official report. Venous duplex pending. Dressing changed today using: Bactroban, Xeroform and DSD Activity - WBAT. Podiatry will continue to follow up the patient while in house.
[2017-12-22] MEDS: guaiFENesin DM 200 mg-20 mg/10 ml UD PO PRN ×2 (15:16→21:39)
--- NOTE | 2017-12-22 21:58 | CP.PCM.PN ---
Subjective - Date & Time of Evaluation Date of Evaluation: 12/22/17 Time of Evaluation: 12:20 - Subjective Subjective: hospitalist note Patient seen, examined. Patient reports unremitting dry cough which is irritating to him. Patient denies headache, denies chest pain, denies dyspnea on exertion,, denies abdominal pain, denies dysuria, denies constipation. patient was seen ambulating over the hospital floors moving quite well. Objective - Vital Signs/Intake and Output Vital Signs (last 24 hours): Temp Pulse Resp BP Pulse Ox 97.7 F 78 20 117/68 95 12/22/17 15:00 12/22/17 18:43 12/22/17 15:00 12/22/17 18:43 12/22/17 18:43 Intake and Output: 12/22/17 12/23/17 18:59 06:59 Intake Total 480 Output Total 800 1200 Balance -320 -1200 - Medications Medications: Current Medications Albuterol/Ipratropium (Duoneb 3 Mg/0.5 Mg (3 Ml) Ud) 3 ml INH RQ4 [facility] Last Admin: 12/22/17 20:12 Dose: Not Given Aspirin (Aspirin Chewable) 81 mg PO DAILY [facility] Last Admin: 12/22/17 09:11 Dose: 81 mg Benzonatate (Tessalon Perles) 100 mg PO TID [facility] Last Admin: 12/22/17 17:21 Dose: 100 mg Carvedilol (Coreg) 3.125 mg PO BID [facility] Last Admin: 12/22/17 17:21 Dose: 3.125 mg Enoxaparin Sodium (Lovenox) 40 mg SC DAILY [facility] Last Admin: 12/22/17 09:10 Dose: 40 mg Furosemide (Lasix) 40 mg IVP BID [facility] Last Admin: 12/22/17 17:21 Dose: 40 mg Guaifenesin/Dextromethorphan (Robitussin Dm) 10 ml PO Q4H PRN PRN Reason: Cough Last Admin: 12/22/17 21:39 Dose: 10 ml Mupirocin (Bactroban Ointment) 0 gm TOP DAILY [facility] Last Admin: 12/22/17 09:11 Dose: 1 applic Pantoprazole Sodium (Protonix Ec Tab) 40 mg PO DAILY [facility] Last Admin: 12/22/17 09:11 Dose: 40 mg Sacubitril/Valsartan (Entresto 24 Mg-26 Mg) 1 tab PO BID [facility] Last Admin: 12/22/17 17:21 Dose: 1 tab Spironolactone (Aldactone) 100 mg PO DAILY [facility] Last Admin: 12/22/17 10:00 Dose: 100 mg - Labs Labs: 12/22/17 07:16 12/22/17 07:16 PT 16.3 SECONDS (9.7-12.2) H 12/19/17 14:22 INR 1.5 12/19/17 14:22 APTT 37 SECONDS (21-34) H 12/19/17 14:22 - Constitutional Appears: Non-toxic, No Acute Distress - Eye Exam Eye Exam: EOMI - ENT Exam ENT Exam: Mucous Membranes Moist - Respiratory Exam Respiratory Exam: Clear to Ausculation Bilateral, NORMAL BREATHING PATTERN. absent: Rales, Rhonchi, Wheezes - Cardiovascular Exam Cardiovascular Exam: REGULAR RHYTHM, +S1, +S2 - GI/Abdominal Exam GI & Abdominal Exam: Soft, Normal Bowel Sounds. absent: Distended, Firm, Guarding, Rigid, Tenderness, Rebound - Extremities Exam Extremities Exam: Pedal Edema (ttrace) Additional comments: ssuperficial leg wounds covered in dressing clean dry intact - Neurological Exam Neurological Exam: Alert, Awake, Oriented x3 - Psychiatric Exam Psychiatric exam: Normal Affect, Normal Mood - Skin Skin Exam: Dry, Normal Color, Warm Assessment and Plan (1) Nonhealing skin ulcer Status: Acute (2) Cirrhosis Status: Chronic (3) DM2 (diabetes mellitus, type 2) Status: Chronic (4) Hypertension Status: Chronic (5) Acute on chronic systolic CHF (congestive heart failure) Status: Resolved (6) Prophylactic measure Status: Resolved Attending/Attestation - Attestation I have personally seen and examined this patient.: Yes I have fully participated in the care of the patient.: Yes I have reviewed all pertinent clinical information, including history, physical exam and plan: Yes Notes (Text): Acute on Chronic, combined systolic and diastolic CHF exacerbation Assessment/plan * Cardiology consulted, Dr. Rouse - follow up recs * CXR (12/19): * Chronic changes as above: Cardiomegaly and pulmonary venous congestion-the latter slightly decreased compared the prior study. * Small bilateral pleural effusions-that on the right probably less now than before. * Pacemaker in place * EKG: Ventricularly paced rhythm @ 75bpm * ECHO 07/2017 10-20% grade III diastolic dysfunction * BNP (12/19): 6,190 (previous on 08/29: 4,730) Strict I's and O's * Fluid Restriction - 1 Liter Medications: * Entresto 24mg-26mg tab PO BID * Coreg 3.125 mg PO BID * Lasix 40mg IVP BID * Aldactone 100 mg PO daily * Aspirin 81 mg once a day * Start crestor 5mg PoqHS Cough possible bronchitis assessment/plan * Sputum culture - pending * Duoneb Q4 * Robitussin DM 10ml Q4 * Tessalon pearls 100 mg PO TID * discontinue azithromycin no pneumonia noted on chest x-ray Chronic LE leg ulceration with edema assessment/plan * Podiatry consulted, Dr. Montoya - Dressing changed today using: xeroform, DSD, Arterial duplex: Pending official report, Venous duplex pendin * Mupirocin 2% ointment -to be applied to LE wounds * Activity - WBAT * Venous and arterial doppler - F/U official report Liver cirrhosis with ascites and history of multiple paracentesis/thoracentesis from effusion assessment/plan * limited abdominal sonogram for paracentesis - Insufficient ascites for paracentesis * IR consulted, Dr. Randle - paracentesis not done because there there was insufficient quantity * prior history history of ETOH abuse Medications: * Lasix 40mg IVP BID * Aldactone 100 mg PO daily Diabetes assessment/plan * patient is diabetic A1c of 6.6 noted on this hospitalization * Patient will need further education i * Diet: heart healthy diet with fluid restriction. * Dietitian referral * Patient is receiving arb * Patient is receiving aspirin Prophylactic Care * SCD contraindicated due to leg ulcerations * Lovenox 40mg SC daily * Protonix 40mg PO daily
[2017-12-23] MEDS: Albuterol-Ipratrop 3 mg / 0.5 (3 ml) UD INH SCH ×5 (03:19→19:37)
[2017-12-23] MEDS: guaiFENesin DM 200 mg-20 mg/10 ml UD PO PRN ×2 (04:06→14:46)
[2017-12-23] MEDS: Pantoprazole 40 mg EC Tab PO SCH (09:49)
[2017-12-23] MEDS: Enoxaparin 40 mg Syringe SC SCH (09:50)
[2017-12-23] MEDS: Sacubitril/Valsartan 24-26mg Tab PO SCH ×2 (09:51→18:36)
[2017-12-23 11:03] LABS: BASO % 0.4 % (0.0-2.0); EOS # 0.2 K/uL (0.0-0.7); EOS % 3.3 % (0.0-4.0); HEMOGLOBIN 9.4 g/dL (12.0-18.0); LYMPH # 1.3 K/uL (1.0-4.3); LYMPH % 21.4 % (20.0-40.0); MEAN CELL VOLUME 77.5 fL (80.0-94.0); MEAN CORPUSCULAR HEMOGLOBIN 24.7 pg (27.0-31.0); MEAN CORPUSCULAR HGB CONC 31.9 g/dL (33.0-37.0); MEAN PLATELET VOLUME 8.2 fL (7.2-11.7); MONO % 17.3 % (0.0-10.0); NEUT # 3.4 K/uL (1.8-7.0); NEUT % 57.6 % (50.0-75.0); NRBC % 0.1 % (0.0-2.0); RBC 3.79 Mil/uL (4.40-5.90); RED CELL DISTRIBUTION WIDTH 18.2 % (11.5-14.5); WHITE BLOOD COUNT 5.9 K/uL (4.8-10.8)
--- NOTE | 2017-12-23 11:14 | CARD ---
APPROVED REPORT Date of service: 12/19/2017 EKG Measurement Heart [id number] <Conclusion> Ventricular-paced rhythm Abnormal ECG
[2017-12-23 11:25] LABS: ALB/GLOB RATIO 0.9 (1.0-2.1); ALBUMIN 3.8 g/dL (3.5-5.0); ALT/SGPT 13 U/L (21-72); AST/SGOT 21 U/L (17-59); BLOOD UREA NITROGEN 23 mg/dL (9-20); CALCIUM 8.8 mg/dl (8.6-10.4); GFR NON-AFRICAN AMERICAN > 60
[2017-12-23 11:30] LABS: B-TYPE NATRIURETIC PEPTIDE 3320 pg/mL (0-900)
--- NOTE | 2017-12-23 12:42 | CP.PCM.PN ---
Subjective - Date & Time of Evaluation Date of Evaluation: 12/23/17 Time of Evaluation: 12:37 - Subjective Subjective: Podiatry - Dr. Montoya 67M seen and evaluated this AM concerning bilateral lower extremity venous stasis ulcerations. Patient hemodynamically stable and NAD. No acute events overnight. Patient reports pain in lower extremities is improving; dressings to bilateral LE clean/dry/intact. Ambulating w/o issues. Patient is aware he is to follow up with Dr. Montoya within 1 week of discharge. Denies n/v/f/d/c/sob. Offers no other complaints. Objective - Vital Signs/Intake and Output Vital Signs (last 24 hours): Temp Pulse Resp BP Pulse Ox 98.1 F 82 18 133/80 100 12/23/17 07:00 12/23/17 07:00 12/23/17 07:00 12/23/17 09:49 12/23/17 07:00 Intake and Output: 12/23/17 12/23/17 06:59 18:59 Intake Total 618 Output Total 4100 Balance -3482 - Medications Medications: Current Medications Albuterol/Ipratropium (Duoneb 3 Mg/0.5 Mg (3 Ml) Ud) 3 ml INH RQ4 [facility] Last Admin: 12/23/17 11:01 Dose: Not Given Aspirin (Aspirin Chewable) 81 mg PO DAILY [facility] Last Admin: 12/23/17 09:49 Dose: 81 mg Benzonatate (Tessalon Perles) 100 mg PO TID [facility] Last Admin: 12/23/17 09:51 Dose: 100 mg Carvedilol (Coreg) 3.125 mg PO BID [facility] Last Admin: 12/23/17 09:49 Dose: 3.125 mg Enoxaparin Sodium (Lovenox) 40 mg SC DAILY [facility] Last Admin: 12/23/17 09:50 Dose: 40 mg Furosemide (Lasix) 40 mg IVP BID [facility] Last Admin: 12/23/17 09:49 Dose: 40 mg Guaifenesin/Dextromethorphan (Robitussin Dm) 10 ml PO Q4H PRN PRN Reason: Cough Last Admin: 12/23/17 04:06 Dose: 10 ml Mupirocin (Bactroban Ointment) 0 gm TOP DAILY [facility] Last Admin: 12/23/17 09:51 Dose: 1 applic Pantoprazole Sodium (Protonix Ec Tab) 40 mg PO DAILY [facility] Last Admin: 12/23/17 09:49 Dose: 40 mg Rosuvastatin Calcium (Crestor) 5 mg PO [facility] Sacubitril/Valsartan (Entresto 24 Mg-26 Mg) 1 tab PO BID [facility] Last Admin: 12/23/17 09:51 Dose: 1 tab Spironolactone (Aldactone) 100 mg PO DAILY [facility] Last Admin: 12/23/17 09:51 Dose: 100 mg - Labs Labs: 12/23/17 10:51 12/23/17 10:51 PT 16.3 SECONDS (9.7-12.2) H 12/19/17 14:22 INR 1.5 12/19/17 14:22 APTT 37 SECONDS (21-34) H 12/19/17 14:22 - Constitutional Appears: Well, Non-toxic, No Acute Distress - Extremities Exam Additional comments: Lower extremity focused exam: Vasc: DP pulses palpable 2/4 b/l. PT pulses weakly palpable 1/4. +1 pitting edema noted to legs b/l. Cap refill <3 seconds to all digits. Multiple varicosities present b/l. Neuro: Protective sensation grossly diminished b/l. Derm: Left LE: Full thickness ulceration noted to lateral midleg measuring approximately 5 x 2 x 0.1 cm - ulcer is noted to have an granular and fibrotic 85:15 base with periwound erythema ; minimal serous drainage present; no purulence; no fluctuance; no undermining; no tunneling noted. Ulceration #2 noted to posterior lower leg measuring approximately 1.5 x 1 x 0.1 cm - ulcer noted to have a mixed fibrogranular base and minimal erythema john-wound; minimal seroous drainage present; no purulence; no fluctuance; no undermining; no tunneling. Right LE: small ulcerative lesions noted to posterior calf. no drainage; no purulence; no fluctuance. no erythema. No underming or tracking. MSK: Pain on palpation noted to ulcers b/l. Muscle strength 5/5 for all groups b/l. No pain upon calf squeeze b/l. - Neurological Exam Neurological Exam: Alert, Awake, Oriented x3 - Psychiatric Exam Psychiatric exam: Normal Affect, Normal Mood Assessment and Plan - Assessment and Plan (Free Text) Assessment: 67 year old male with B/L LE venous stasis ulcerations, improving Plan: Patient seen and evaluated Discussed with attending, Dr. Montoya Afebrile, WBC WNL 5.9 Bilateral arterial duplex final report pending Bilateral venous duplex final report pending Continue local wound care: bactroban, xeroform, DSD b/l Activity - WBAT with the assistance of a walker Patient to follow up with Dr. Montoya within 1 week of discharge Podiatry will continue to follow
--- NOTE | 2017-12-23 13:58 | RAD ---
Date of service: 12/23/2017 HISTORY: cough, dyspnea COMPARISON: Comparison chest 12/19/2017 FINDINGS: LUNGS: Mild pulmonary venous congestive changes although bilateral lower lobe alveolar-type infiltrates improved slightly. Slight increased bilateral effusions.. PLEURA: As above. No pneumothorax apparent. CARDIOVASCULAR: Marked cardiomegaly. No change bipolar pacemaker/ OSSEOUS STRUCTURES: No significant abnormalities. VISUALIZED UPPER ABDOMEN: Normal. OTHER FINDINGS: None. IMPRESSION: Mild pulmonary venous congestive changes although bilateral lower lobe alveolar-type infiltrates improved slightly. Slight increased bilateral effusions..
[2017-12-23 16:17] VITALS: RESP 20
--- NOTE | 2017-12-23 18:02 | CP.PCM.PN ---
Subjective - Date & Time of Evaluation Date of Evaluation: 12/23/17 Time of Evaluation: 09:00 - Subjective Subjective: Deepak Fry PGY-1, Medicine progress note Pt was seen and examined at bedside. No acute events overnight. Pt reports that his cough is still bothering him, with intermittent episodes of minimally blood tinged sputum during episodes of intense coughing fits. Pt states that he has increased pain in his bilateral lower extremities. Pt denies fever, chills, chest pain, sob, abdominal pain, n/v/d, hematochezia, melena, any other new bleeding. Pt has been ambulating with a walker without any problems, until he has these coughing fits that require him to stop. Objective - Vital Signs/Intake and Output Vital Signs (last 24 hours): Temp Pulse Resp BP Pulse Ox 97.8 F 79 20 128/68 94 L 12/23/17 15:00 12/23/17 15:00 12/23/17 15:00 12/23/17 15:00 12/23/17 15:00 Intake and Output: 12/23/17 12/23/17 06:59 18:59 Intake Total 618 600 Output Total 4100 Balance -3482 600 - Medications Medications: Current Medications Albuterol/Ipratropium (Duoneb 3 Mg/0.5 Mg (3 Ml) Ud) 3 ml INH RQ4 [facility] Last Admin: 12/23/17 16:32 Dose: Not Given Aspirin (Aspirin Chewable) 81 mg PO DAILY [facility] Last Admin: 12/23/17 09:49 Dose: 81 mg Benzonatate (Tessalon Perles) 100 mg PO TID [facility] Last Admin: 12/23/17 14:47 Dose: 100 mg Carvedilol (Coreg) 3.125 mg PO BID [facility] Last Admin: 12/23/17 09:49 Dose: 3.125 mg Enoxaparin Sodium (Lovenox) 40 mg SC DAILY [facility] Last Admin: 12/23/17 09:50 Dose: 40 mg Furosemide (Lasix) 40 mg IVP BID [facility] Last Admin: 12/23/17 09:49 Dose: 40 mg Guaifenesin/Dextromethorphan (Robitussin Dm) 10 ml PO Q4H PRN PRN Reason: Cough Last Admin: 12/23/17 14:46 Dose: 10 ml Mupirocin (Bactroban Ointment) 0 gm TOP DAILY [facility] Last Admin: 12/23/17 09:51 Dose: 1 applic Pantoprazole Sodium (Protonix Ec Tab) 40 mg PO DAILY [facility] Last Admin: 12/23/17 09:49 Dose: 40 mg Rosuvastatin Calcium (Crestor) 5 mg PO [facility] Sacubitril/Valsartan (Entresto 24 Mg-26 Mg) 1 tab PO BID [facility] Last Admin: 12/23/17 09:51 Dose: 1 tab Spironolactone (Aldactone) 100 mg PO DAILY [facility] Last Admin: 12/23/17 09:51 Dose: 100 mg - Labs Labs: 12/23/17 10:51 12/23/17 10:51 PT 16.3 SECONDS (9.7-12.2) H 12/19/17 14:22 INR 1.5 12/19/17 14:22 APTT 37 SECONDS (21-34) H 12/19/17 14:22 - Constitutional Appears: Non-toxic, No Acute Distress - Head Exam Head Exam: NORMAL INSPECTION, NORMOCEPHALIC - Eye Exam Eye Exam: EOMI, Normal appearance - ENT Exam ENT Exam: Mucous Membranes Moist - Neck Exam Neck Exam: Normal Inspection - Respiratory Exam Respiratory Exam: Wheezes (scattered). absent: Accessory Muscle Use, Rales, Rhonchi, Respiratory Distress, Stridor - Cardiovascular Exam Cardiovascular Exam: REGULAR RHYTHM, +S1, +S2 - GI/Abdominal Exam GI & Abdominal Exam: Soft, Normal Bowel Sounds. absent: Distended, Firm, Guarding, Rigid, Tenderness, Rebound - Extremities Exam Extremities Exam: Normal Capillary Refill, Pedal Edema (trace pitting edema bilaterally). absent: Calf Tenderness - Back Exam Back Exam: NORMAL INSPECTION - Neurological Exam Neurological Exam: Alert, Awake, Oriented x3 - Psychiatric Exam Psychiatric exam: Normal Affect, Normal Mood - Skin Skin Exam: Dry, Normal Color, Warm Additional comments: (+) bilateral lower extremity venous stasis; wounds are covered in dressing; c/d/i, no active bleeding noted Assessment and Plan - Assessment and Plan (Free Text) Assessment: This is a 67 year old male with PMH of Defibrillator and pacemaker(2011), CHF, HTN, liver cirrhosis, pleural effusions, T2DM sent in by Dr. Camilo Montoya for CHF exacerbation/shortness of breath and b/l LE venous ulcers. Plan: Acute on Chronic, combined systolic and diastolic CHF exacerbation * Cardiology consulted, Dr. Rouse - follow up recs * CXR (12/19): * Chronic changes as above: Cardiomegaly and pulmonary venous congestion-the latter slightly decreased compared the prior study. * Small bilateral pleural effusions-that on the right probably less now than before. * Pacemaker in place * EKG: Ventricularly paced rhythm @ 75bpm * ECHO 07/2017 10-20% grade III diastolic dysfunction * BNP (12/19): 6,190 (previous on 08/29: 4,730) Strict I's and O's * Fluid Restriction - 1 Liter daily Medications: * Entresto 24mg-26mg tab PO BID * Coreg 3.125 mg PO BID * Lasix 40mg IVP BID * Aldactone 100 mg PO daily * Aspirin 81 mg once a day * Continue crestor 5mg PoqHS Cough possible bronchitis * Sputum culture - pending * Duoneb Q4 * Robitussin DM 10ml Q4 * Tessalon pearls 100 mg PO TID * discontinued azithromycin as no pneumonia noted on chest x-ray Chronic LE leg ulceration with edema * Podiatry consulted, Dr. Montoya - Dressing changed today using: xeroform, DSD, * Arterial duplex: Pending official report * Venous duplex is negative for DVT bilaterally * Mupirocin 2% ointment -to be applied to LE wounds * Activity - WBAT * pt remains afebrile without leukocytosis * f/u with Dr. Montoya within 1 week of discharge as per podiatry resident Liver cirrhosis with ascites and history of multiple paracentesis/thoracentesis from effusion * limited abdominal sonogram for paracentesis - Insufficient ascites for paracentesis * IR consulted, Dr. Randle - paracentesis not done because there there was insufficient quantity * prior history history of ETOH abuse Medications: * Lasix 40mg IVP BID * Aldactone 100 mg PO daily Diabetes * patient is diabetic A1c of 6.6 noted on this hospitalization * Patient will need further education i * Diet: heart healthy diet with fluid restriction. * Dietitian referral * Patient is receiving arb * Patient is receiving aspirin Prophylactic Care * SCD contraindicated due to leg ulcerations * Lovenox 40mg SC daily * Protonix 40mg PO daily Dispo: possible discharge tomorrow pending arterial doppler results. Pt is ambulating well with walker, without desaturation. Pt should follow up with Podiarty within 1 week of discharge. Case was reviewed and discussed with attending physician, Dr. Umu Fry PGY-1
[2017-12-24] MEDS: guaiFENesin DM 200 mg-20 mg/10 ml UD PO PRN (02:06)
[2017-12-24] MEDS: Albuterol-Ipratrop 3 mg / 0.5 (3 ml) UD INH SCH ×3 (08:45→16:01)
--- NOTE | 2017-12-24 09:05 | CP.PCM.DIS ---
Provider - Provider Date of Admission: 12/19/17 15:47 Attending physician: Mer Sanz DO Time Spent in preparation of Discharge (in minutes): 35 Diagnosis - Discharge Diagnosis (1) Bronchitis Status: Chronic (2) Congestive heart failure Status: Chronic (3) Venous stasis Status: Chronic (4) Chronic ulcer of lower extremity Status: Chronic (5) DM2 (diabetes mellitus, type 2) Status: Chronic (6) Liver cirrhosis Status: Chronic (7) Acute on chronic systolic CHF (congestive heart failure) Status: Resolved Hospital Course - Lab Results Lab Results: Micro Results 12/19/17 13:45 Blood Blood Culture - Preliminary NO GROWTH AFTER 4 DAYS 12/19/17 14:15 Blood Blood Culture - Preliminary NO GROWTH AFTER 4 DAYS 12/20/17 19:49 Sputum Gram Stain - Final 12/20/17 19:49 Sputum Sputum Culture - Final NORMAL ORAL NICOLA Most Recent Lab Values WBC 5.9 K/uL (4.8-10.8) 12/23/17 10:51 RBC 3.79 Mil/uL (4.40-5.90) L 12/23/17 10:51 Hgb 9.4 g/dL (12.0-18.0) L 12/23/17 10:51 Hct 29.4 % (35.0-51.0) L 12/23/17 10:51 MCV 77.5 fL (80.0-94.0) L 12/23/17 10:51 MCH 24.7 pg (27.0-31.0) L 12/23/17 10:51 MCHC 31.9 g/dL (33.0-37.0) L 12/23/17 10:51 RDW 18.2 % (11.5-14.5) H 12/23/17 10:51 Plt Count 191 K/uL (130-400) 12/23/17 10:51 MPV 8.2 fL (7.2-11.7) 12/23/17 10:51 Neut % (Auto) 57.6 % (50.0-75.0) 12/23/17 10:51 Lymph % (Auto) 21.4 % (20.0-40.0) 12/23/17 10:51 [place] % (Auto) 17.3 % (0.0-10.0) H 12/23/17 10:51 Eos % (Auto) 3.3 % (0.0-4.0) 12/23/17 10:51 Baso % (Auto) 0.4 % (0.0-2.0) 12/23/17 10:51 Neut # (Auto) 3.4 K/uL (1.8-7.0) 12/23/17 10:51 Lymph # (Auto) 1.3 K/uL (1.0-4.3) 12/23/17 10:51 [place] # (Auto) 1.0 K/uL (0.0-0.8) H 12/23/17 10:51 Eos # (Auto) 0.2 K/uL (0.0-0.7) 12/23/17 10:51 Baso # (Auto) 0.0 K/uL (0.0-0.2) 12/23/17 10:51 PT 16.3 SECONDS (9.7-12.2) H 12/19/17 14:22 INR 1.5 12/19/17 14:22 APTT 37 SECONDS (21-34) H 12/19/17 14:22 Sodium 138 mmol/L (132-148) 12/23/17 10:51 Potassium 4.3 mmol/L (3.6-5.2) 12/23/17 10:51 Chloride 93 mmol/L (98-107) L 12/23/17 10:51 Carbon Dioxide 35 mmol/L (22-30) H 12/23/17 10:51 Anion Gap 14 (10-20) 12/23/17 10:51 BUN 23 mg/dL (9-20) H 12/23/17 10:51 Creatinine 1.2 mg/dL (0.8-1.5) 12/23/17 10:51 Est GFR ( Amer) > 60 12/23/17 10:51 Est GFR (Non-Af Amer) > 60 12/23/17 10:51 POC Glucose (mg/dL) 155 mg/dL (65-110) H 12/24/17 06:01 Random Glucose 121 mg/dL (75-110) H 12/23/17 10:51 Hemoglobin A1c 6.6 % (4.2-6.5) H 12/20/17 11:29 Calcium 8.8 mg/dl (8.6-10.4) 12/23/17 10:51 Phosphorus 2.6 mg/dL (2.5-4.5) 12/23/17 10:51 Magnesium 1.6 mg/dL (1.6-2.3) 12/23/17 10:51 Total Bilirubin 0.8 mg/dL (0.2-1.3) 12/23/17 10:51 AST 21 U/L (17-59) 12/23/17 10:51 ALT 13 U/L (21-72) L 12/23/17 10:51 Alkaline Phosphatase 103 U/L (38-126) 12/23/17 10:51 Troponin I 0.0230 ng/mL (0.00-0.120) 12/19/17 15:05 NT-Pro-B Natriuret Pep 3320 pg/mL (0-900) H 12/23/17 10:51 Total Protein 8.1 g/dL (6.3-8.3) 12/23/17 10:51 Albumin 3.8 g/dL (3.5-5.0) 12/23/17 10:51 Globulin 4.3 gm/dL (2.2-3.9) H 12/23/17 10:51 Albumin/Globulin Ratio 0.9 (1.0-2.1) L 12/23/17 10:51 Triglycerides 41 mg/dL (0-149) D 12/22/17 07:16 Cholesterol 78 mg/dL (0-199) 12/22/17 07:16 LDL Cholesterol Direct 39 mg/dL (0-129) 12/22/17 07:16 HDL Cholesterol 24 mg/dL (30-70) L 12/22/17 07:16 - Hospital Course Hospital Course: On admission: Patient is a 67 year old male sent in by Dr. Camilo Montoya for CHF exacerbation/shortness of breath and b/l LE venous ulcers. Patient states that he has been feeling more short of breath for the last two months. He uses a walker to get around but has been needing to rest more frequently. He is no longer able to sleep laying flat because he starts to cough and feel more short of breath. His legs have also become more swollen for the past couple of weeks. He went to see Dr. Montoya (Podiatry) today for treatment of his b/l leg ulcers when he was instructed to come to the emergency room. Patient states that his leg ulcers have been improving but he started to leak over the past couple of weeks. He also reports increased abdominal distension. He reports having a paracentesis previously with Dr. Randle twice in the past. Denies fevers, chills, nausea, vomiting, diarrhea, constipation, chest pain, abdominal pain, weakness, numbness or tingling. Hospital course: Pt admitted to telemetry. Pt was restarted on home medications, Coreg, Entreto, Aldactone. EKG showed ventricular pacing. Lower extremity venous dopplers were negative for DVT bilaterally. Pt started on Lasix IV for management of CHF exacerbation. CXR showed cardiomegaly, pulmonary vascular congestion, small bilateral pleural effusions, pacemaker in place. Dr. Montoya, podiatry, was consulted for chronic venous stasis with ulcers. Interventional radiology, Dr. Randle, was consulted for possible paracentesis but it was noted that pt did not have sufficient fluid necessary for paracentesis. Cardiology, Dr. Rouse, was consulted. Dr. Flood, covering for Dr. Rouse, evaluated the patient and added Aspirin 81 mg PO. Pt was treatde with Azithromycin IVPB, Robitussin and tessalon pearlss for cough. Azithromycin was discontinued as it was determined that pt is less likely to have pneumonia and more likely to have bronchitis. During the hospital stay, pt's sob improved with lasix, and his chronic ulcers improved as well. Pt was ambulating well with a walker without desaturation. This is a summary of the hospital course, please see chart for full details. Discharge Exam - Head Exam Head Exam: NORMAL INSPECTION, NORMOCEPHALIC - Eye Exam Eye Exam: EOMI, Normal appearance - ENT Exam ENT Exam: Mucous Membranes Moist - Respiratory Exam Respiratory Exam: Clear to PA & Lateral, NORMAL BREATHING PATTERN. absent: Rales, Rhonchi, Wheezes, Respiratory Distress, Stridor - Cardiovascular Exam Cardiovascular Exam: REGULAR RHYTHM, +S1, +S2 - GI/Abdominal Exam GI & Abdominal Exam: Distended, Hernia (umbilical hernia), Normal Bowel Sounds, Soft. absent: Firm, Guarding, Rebound, Rigid, Tenderness - Extremities Exam Additional comments: (+) 1+ pedal pulses bilaterally, 3+ radial pulses bilateral upper extremities (+) bilateral chronic venous stasis; left lower extremity with dressing; C/D/I no signs of bleeding - Back Exam Back exam: NORMAL INSPECTION - Neurological Exam Neurological exam: Alert - Psychiatric Exam Psychiatric exam: Normal Affect, Normal Mood - Skin Skin Exam: Dry, Normal Color, Warm Discharge Plan - Discharge Medications Prescriptions: Aspirin [Aspirin Chewable] 81 mg PO DAILY 30 Days #30 chew Carvedilol [Coreg] 3.125 mg PO BID #60 tab Furosemide 40 mg PO DAILY #30 tablet Rosuvastatin Calcium [Crestor] 5 mg PO HS 30 Days #30 tab Sacubitril/Valsartan [Entresto 24 mg-26 mg] 1 tab PO BID #60 tablet Spironolactone [Aldactone] 100 mg PO DAILY #30 tab - Follow Up Plan Condition: FAIR Disposition: HOME/ ROUTINE Instructions: Heart Healthy Diet, Heart Failure, Adult (DC), Pulmonary Hypertension, Adult (DC), Carvedilol, Furosemide, Rosuvastatin, Spironolactone, Sacubitril and Valsartan Additional Instructions: Patient is medically stable and safe for discharge home as per Dr. Sanz. Patient should continue taking his home Lasix, Coreg, Entresto, Aldactone as originally prescribed. Patient provided with prescriptions for a 1 month supply of these medications. In addition to the above medications, patient should start taking Crestor 5 mg by mouth at nighttime every day. Patient should continue taking aspirin 81 mg by mouth daily. Patient should follow up with Dr. Montoya, Podiatry, at his scheduled appointment, 12/27/17, and follow up with Dr. Rouse, cardiology, within 1 week for future management. Should symptoms worsen, please head to the nearest Emergency Department for evaluation. Instructions explained to the patient, who understands and agrees with discharge plan. Referrals: Camilo Montoya DPM [Staff Provider] - New Rouse MD [Staff Provider] -
--- NOTE | 2017-12-24 09:24 | CP.PCM.PN ---
Subjective - Date & Time of Evaluation Date of Evaluation: 12/24/17 Time of Evaluation: 09:22 - Subjective Subjective: Podiatry - Dr. Montoya 67M seen and evaluated this AM concerning bilateral lower extremity venous stasis ulcerations. Patient hemodynamically stable and NAD. No acute events overnight. Patient reports continued improvement with pain in LE wounds. SOB improving. Patient scheduled to f/u with Dr. Montoya this Wednesday 12/27 in office. Denies n/v/f/d/c/da silva/cp. Offers no other complaints. Objective - Vital Signs/Intake and Output Vital Signs (last 24 hours): Temp Pulse Resp BP Pulse Ox 97.8 F 76 20 133/75 95 12/24/17 07:00 12/24/17 07:00 12/24/17 07:00 12/24/17 07:00 12/24/17 07:00 Intake and Output: 12/24/17 12/24/17 06:59 18:59 Output Total 900 Balance -900 - Medications Medications: Current Medications Albuterol/Ipratropium (Duoneb 3 Mg/0.5 Mg (3 Ml) Ud) 3 ml INH RQ4 [facility] Last Admin: 12/23/17 19:37 Dose: 3 ml Aspirin (Aspirin Chewable) 81 mg PO DAILY [facility] Last Admin: 12/23/17 09:49 Dose: 81 mg Benzonatate (Tessalon Perles) 100 mg PO TID [facility] Last Admin: 12/23/17 18:36 Dose: 100 mg Carvedilol (Coreg) 3.125 mg PO BID [facility] Last Admin: 12/23/17 18:36 Dose: 3.125 mg Enoxaparin Sodium (Lovenox) 40 mg SC DAILY [facility] Last Admin: 12/23/17 09:50 Dose: 40 mg Furosemide (Lasix) 40 mg IVP BID [facility] Last Admin: 12/23/17 18:36 Dose: 40 mg Guaifenesin/Dextromethorphan (Robitussin Dm) 10 ml PO Q4H PRN PRN Reason: Cough Last Admin: 12/24/17 02:06 Dose: 10 ml Mupirocin (Bactroban Ointment) 0 gm TOP DAILY [facility] Last Admin: 12/23/17 09:51 Dose: 1 applic Pantoprazole Sodium (Protonix Ec Tab) 40 mg PO DAILY [facility] Last Admin: 12/23/17 09:49 Dose: 40 mg Rosuvastatin Calcium (Crestor) 5 mg PO HS [facility] Last Admin: 12/23/17 21:13 Dose: 5 mg Sacubitril/Valsartan (Entresto 24 Mg-26 Mg) 1 tab PO BID [facility] Last Admin: 12/23/17 18:36 Dose: 1 tab Spironolactone (Aldactone) 100 mg PO DAILY [facility] Last Admin: 12/23/17 09:51 Dose: 100 mg - Labs Labs: 12/23/17 10:51 12/23/17 10:51 PT 16.3 SECONDS (9.7-12.2) H 12/19/17 14:22 INR 1.5 12/19/17 14:22 APTT 37 SECONDS (21-34) H 12/19/17 14:22 - Constitutional Appears: Well, Non-toxic, No Acute Distress - Extremities Exam Additional comments: Lower extremity focused exam: Vasc: DP pulses palpable 2/4 b/l. PT pulses weakly palpable 1/4. +1 pitting edema noted to legs b/l. Cap refill <3 seconds to all digits. Multiple varicosities present b/l. Neuro: Protective sensation grossly diminished b/l. Derm: Left LE: Full thickness ulceration noted to lateral midleg measuring appro ximately 5 x 2 x 0.1 cm, improving - ulcer is noted to have an granular and fibrotic 85:15 base with periwound erythema <1cm ; minimal serous drainage present; no purulence; no fluctuance; no undermining; no tunneling noted. Ulceration #2 noted to posterior lower leg measuring approximately 1.5 x 1 x 0.1 cm, improving- ulcer noted to have a mixed fibrogranular base and minimal erythema john-wound; minimal seroous drainage present; no purulence; no fluctuance; no undermining; no tunneling. Right LE: small ulcerative lesions noted to posterior calf resolving with eschar cap. no drainage; no purulence; no fluctuance. no erythema. No underming or tracking. MSK: Pain on palpation noted to ulcers b/l. Muscle strength 5/5 for all groups b/l. No pain upon calf squeeze b/l. - Neurological Exam Neurological Exam: Alert, Awake, Oriented x3 - Psychiatric Exam Psychiatric exam: Normal Affect, Normal Mood Assessment and Plan - Assessment and Plan (Free Text) Assessment: 67 year old male with B/L LE venous stasis ulcerations, improving Plan: Patient seen and evaluated alongside attending, Dr. Montoya Afebrile Bilateral arterial duplex final report pending Bilateral venous duplex final report pending Continue local wound care: bactroban, xeroform, DSD LLE; d/c dressings RLE Activity - WBAT with the assistance of a walker Patient to follow up with Dr. Montoya in office Saturday, 12/27 Podiatry will continue to follow
[2017-12-24] MEDS: Sacubitril/Valsartan 24-26mg Tab PO SCH (10:20)
[2017-12-24] MEDS: Pantoprazole 40 mg EC Tab PO SCH (10:20)
[2017-12-24] MEDS: Enoxaparin 40 mg Syringe SC SCH ×2 (10:21→10:29)
[2017-12-24 16:05] VITALS: BP 134/79; PULSE 71; TEMP 97.7; O2SAT 98
--- NOTE | 2017-12-24 17:03 | PCM.HF ---
Heart Failure Core Measure - Heart Failure Ejection Fraction: Less Than 40 % (EF 10-20%) JUANITA Inhibitor Prescribed: Yes Beta-Erlinda Prescribed: Carvedilol Angiotensin II Receptor Erlinda Prescribed: Yes AnticoagulationTherapy for Atrial Fibrillation/Atrialflutter: No Contraindication/Reason for not providing: no afib Aldosterone Antagonist Prescribed: Yes Hydralazine Nitrate Prescribed: No Contraindication/Reason for not providing: BP low Implantable Cardioverter Defibrillator Therapy: Yes Cardiac Resynchronization Therapy Prescribed: No Contraindication/Reason for not providing: has pacemaker - Follow up Will be discharged to: Home Follow Up Date (must be within 7 days from discharge): 12/30/17
--- NOTE | 2017-12-25 11:19 | VASCLAB ---
Date of service: 12/21/2017 PROCEDURE: Lower Extremity Venous Duplex Exam. HISTORY: Bilateral calf pain r/o DVT PRIORS: None. TECHNIQUE: Bilateral common femoral, femoral, popliteal and posterior tibial, peroneal and great saphenous veins were evaluated. Flow was assessed with color Doppler, compressibility, assessment of phasic flow and augmentation response. Report prepared by RENETTA Ambrocio FINDINGS: RIGHT: 1. Common Femoral Vein: 1.1. Compressibility - Fully compressible: Thrombus - None : Flow - Phasic: Augmentation -Normal: Reflux - None. 2. Femoral Vein: 2.1. Compressibility - Fully compressible: Thrombus - None : Flow - Phasic: Augmentation -Normal: Reflux - None. 3. Popliteal Vein: 3.1. Compressibility - Fully compressible: Thrombus - None : Flow - Phasic: Augmentation -Normal: Reflux - None. 4. Posterior Tibial Vein: (Distal view only) 4.1. Compressibility - Fully compressible: Thrombus - None: Flow - Phasic: Augmentation -Normal: Reflux - None. 5. Peroneal Vein: 5.1. Unable to visualize due to swelling and wounds. 6. Great Saphenous Vein: 6.1. Compressibility - Fully compressible: Thrombus - None: Flow - Phasic: Augmentation - Normal: Reflux - None. LEFT: 1. Common Femoral Vein: 1.1. Compressibility - Fully compressible: Thrombus - None: Flow - Phasic: Augmentation -Normal: Reflux - None. 2. Femoral Vein: 2.1. Compressibility - Fully compressible: Thrombus - None: Flow - Phasic: Augmentation -Normal: Reflux - None. 3. Popliteal Vein: 3.1. Compressibility - Fully compressible: Thrombus - None : Flow - Phasic: Augmentation -Normal: Reflux - None. 4. Posterior Tibial Vein: 4.1. Unable to visualize due to swelling and wounds. 5. Peroneal Vein: 5.1. Unable to visualize due to swelling and wounds. 6. Great Saphenous Vein: 6.1. Compressibility - Fully compressible: Thrombus - None: Flow - Phasic: Augmentation - Normal: Reflux - None. OTHER FINDINGS: Right: Distal anterior tibial, posterior tibial and dorsalis pedis arteries appeared patent. Left: None. IMPRESSION: 1. No evidence of deep or superficial vein thrombosis of bilateral lower extremities, as visualized.
--- NOTE | 2017-12-25 11:30 | VASCLAB ---
Date of service: 12/21/2017 STUDY DESCRIPTION: Lower Extremity Arterial Exam (PVR). HISTORY: Pain in limb, bilateral calf wounds. PRIORS: None. TECHNIQUE: Pulse volume recording waveforms and segmental pressures of bilateral lower extremities at multiple levels were obtained. Ankle Brachial Indices (ABIs) were calculated. Report prepared by RENETTA Ambrocio RIGHT LOWER EXTREMITY: * Brachial artery: Pressure - 134 mmHg. * Low thigh: Pressure - n/a PVR waveform: Pulsatile * Calf: Pressure - n/a PVR waveform: Pulsatile * Posterior tibial Artery: Pressure - n/a PVR waveform: Reduced * Dorsalis pedis Artery: Pressure - n/a PVR waveform: Reduced * Great toe: Unable to obtain. Ankle brachial index (JESSE): Unable to obtain. LEFT LOWER EXTREMITY: * Brachial artery: Pressure - 144 mmHg. * Low thigh: Pressure - n/a PVR waveform: Pulsatile * Calf: Pressure - n/a PVR waveform: Pulsatile * Posterior tibial Artery: Pressure - n/a PVR waveform: Reduced * Dorsalis pedis Artery: Pressure - n/a PVR waveform: Reduced * Great toe: Unable to obtain. Ankle brachial index (JESSE): Unable to obtain. OTHER FINDINGS: Unable to obtain segmental pressures due to patient intolerance to exam. Patient requested to end this examination upon completion of PVR's. IMPRESSION: Based on the arterial PVR waveforms, there is mildly decreased arterial perfusion to bilateral lower extremities, involving the tibial and pedal arteries.
== END 2017-12-24 18:20 | disposition home or self-care (01) | DRG 292 ==
LOC: C.ER 12:22 → C.9E 15:47 → C.6T 17:34
PROVIDERS: ADMIT Hospitalist; ATTEND Hospitalist
DX: I11.0 Hypertensive heart disease with heart failure (principal); L97.929 Non-pressure chronic ulcer of unspecified part of left lower leg with unspecified severity; L97.919 Non-pressure chronic ulcer of unspecified part of right lower leg with unspecified severity; I50.43 Acute on chronic combined systolic (congestive) and diastolic (congestive) heart failure; J40 Bronchitis, not specified as acute or chronic; I87.2 Venous insufficiency (chronic) (peripheral); E11.622 Type 2 diabetes mellitus with other skin ulcer; K70.31 Alcoholic cirrhosis of liver with ascites; M19.90 Unspecified osteoarthritis, unspecified site; F10.10 Alcohol abuse, uncomplicated; E78.00 Pure hypercholesterolemia, unspecified; Z95.0 Presence of cardiac pacemaker; Z90.49 Acquired absence of other specified parts of digestive tract

== ENCOUNTER 2018-01-23 21:25 | Inpatient (IN) | payer MEDICARE, BC ==
[2018-01-23 21:25] VITALS: BMI 28.8
--- NOTE | 2018-01-23 22:00 | C.PDOC ---
History Of Present Illness 67 year old male with a Hx of CHF, EF of 10%, defibrillator, HTN, and chronic venoustasis ulcers presents to the ER with a complaint of worsening SOB over the last few days. Denies fever or other complaints. Time Seen by Provider: 01/23/18 21:41 Chief Complaint (Nursing): Shortness Of Breath History Per: Patient History/Exam Limitations: no limitations Onset/Duration Of Symptoms: Days Current Symptoms Are (Timing): Still Present Initiating Event: Other (Not known) Current Respiratory Medications: See Home Med List Associated Symptoms: denies: Fever, Chills Recent travel outside of the [place]: No Past Medical History Reviewed: Historical Data, Nursing Documentation, Vital Signs Vital Signs: Last Vital Signs Temp 97.5 F L 01/23/18 21:32 Pulse 81 01/23/18 21:32 Resp 32 H 01/23/18 21:32 BP 132/83 01/23/18 21:32 Pulse Ox 96 01/23/18 21:32 - Medical History PMH: Arthritis, CHF, Diabetes, HTN, Hypercholesterolemia Denies: Chronic Kidney Disease Surgical History: Appendectomy, Pacemaker - [facility] Procedures ASSISTANCE WITH RESPIRATORY VENTILATION, 24-96 HRS, CPAP (01/21/17) DRAINAGE OF LEFT PLEURAL CAVITY, PERCUTANEOUS APPROACH (02/02/17) DRAINAGE OF PERITONEAL CAVITY, PERCUTANEOUS APPROACH (03/05/17) DRAINAGE OF PERITONEAL CAVITY, PERCUTANEOUS APPROACH, DIAGN (04/26/16) DRAINAGE OF RIGHT PLEURAL CAVITY, PERCUTANEOUS APPROACH (03/05/17) EXCISION OF STOMACH, ENDO, DIAGN (11/03/16) EXTRACTION OF RIGHT FOOT SKIN, EXTERNAL APPROACH (08/29/17) FLUOROSCOPY OF SUP VENA CAVA USING L OSM CONTRAST, GUIDANCE (03/05/17) INSERTION OF INFUSION DEV INTO SUP VENA CAVA, PERC APPROACH (03/05/17) INSPECTION OF LOWER INTESTINAL TRACT, ENDO (11/03/16) TRANSFUSE NONAUT RED BLOOD CELLS IN PERIPH VEIN, PERC (01/21/17) ULTRASONOGRAPHY OF SUPERIOR VENA CAVA, GUIDANCE (03/05/17) Family History: States: Unknown Family Hx - Social History Hx Tobacco Use: No Hx Alcohol Use: Yes Hx Substance Use: No - Immunization History Hx Tetanus Toxoid Vaccination: No Hx Influenza Vaccination: Yes Hx Pneumococcal Vaccination: Yes Review Of Systems Constitutional: Negative for: Fever, Chills Cardiovascular: Negative for: Chest Pain, Palpitations Respiratory: Positive for: Shortness of Breath. Negative for: Cough Gastrointestinal: Negative for: Nausea, Vomiting Neurological: Negative for: Weakness, Numbness Physical Exam - Physical Exam Appears: Non-toxic Skin: Normal Color, Warm, Dry Head: Atraumatic, Normacephalic Eye(s): bilateral: Normal Inspection Oral Mucosa: Moist Neck: Normal, No Midline Cervical Tenderness, No Paracervical Tenderness, Supple Chest: Symmetrical, No Tenderness Cardiovascular: Rhythm Regular Respiratory: Rales (Bilaterally), No Rhonchi, No Wheezing Gastrointestinal/Abdominal: Soft, No Tenderness Neurological/Psych: Oriented x3, Normal Speech ED Course And Treatment - Laboratory Results Result Diagrams: 01/23/18 22:28 01/23/18 22:28 ECG: Interpreted By Me, Viewed By Me ECG Interpretation: Normal Interpretation Of ECG: Paced Rate From EC O2 Sat by Pulse Oximetry: 96 (Room air) Pulse Ox Interpretation: Normal Medical Decision Making Medical Decision Making: suspect chf. EKG, blood work, and CXR ordered. suspect chf. pt iwth chronic venous stasis ulcers. cxr cardiomegaly. lasix dosed. accpted dr cantu Disposition - Disposition Disposition: HOSPITALIZED Disposition Time: 22:00 Condition: STABLE - Clinical Impression Clinical Impression: CHF (congestive heart failure), Venous stasis - Scribe Statement The provider has reviewed the documentation as recorded by the Scribe Alec Dhillon All medical record entries made by the Scribe were at my direction and personally dictated by me. I have reviewed the chart and agree that the record accurately reflects my personal performance of the history, physical exam, medical decision making, and the department course for this patient. I have also personally directed, reviewed, and agree with the discharge instructions and disposition. Decision To Admit - Pt Status Changed To: Hospital Disposition Of: Inpatient - Admit Certification Admit to Inpatient:: After my assessment, the patient will require hospitalization for at least two midnights. This is because of the severity of symptoms shown, intensity of services needed, and/or the medical risk in this patient being treated as an outpatient. - InPatient: Physician Admission Certification: I certify that this patient requires 2 or more midnights of care for the following reason:: chf - . Bed Request Type: Telemetry Admitting Physician: Matilde Cantu Patient Diagnosis: CHF (congestive heart failure), Venous stasis
[2018-01-23 22:37] LABS: BASO % 0.4 % (0.0-2.0); EOS # 0.1 K/uL (0.0-0.7); LYMPH # 0.8 K/uL (1.0-4.3); LYMPH % 14.5 % (20.0-40.0); MEAN CELL VOLUME 78.8 fL (80.0-94.0); MEAN CORPUSCULAR HEMOGLOBIN 23.8 pg (27.0-31.0); MEAN CORPUSCULAR HGB CONC 30.2 g/dL (33.0-37.0); MEAN PLATELET VOLUME 7.3 fL (7.2-11.7); MONO # 0.9 K/uL (0.0-0.8); MONO % 16.2 % (0.0-10.0); NEUT # 3.8 K/uL (1.8-7.0); NEUT % 67.9 % (50.0-75.0); NRBC % 0.1 % (0.0-2.0); RBC 4.18 Mil/uL (4.40-5.90); RED CELL DISTRIBUTION WIDTH 22.1 % (11.5-14.5); WHITE BLOOD COUNT 5.5 K/uL (4.8-10.8)
[2018-01-23 22:41] LABS: INR 1.5; PROTHROMBIN TIME 15.9 SECONDS (9.7-12.2)
[2018-01-23 22:49] LABS: ALB/GLOB RATIO 0.9 (1.0-2.1); ALBUMIN 3.6 g/dL (3.5-5.0); BLOOD UREA NITROGEN 14 mg/dL (9-20); CALCIUM 8.1 mg/dl (8.6-10.4); GFR NON-AFRICAN AMERICAN > 60
[2018-01-23 22:52] LABS: ALT/SGPT 14 U/L (21-72); AST/SGOT 38 U/L (17-59)
[2018-01-23 23:02] LABS: B-TYPE NATRIURETIC PEPTIDE 5550 pg/mL (0-900)
--- NOTE | 2018-01-23 23:46 | CP.PCM.HP ---
Past Patient History - Infectious Disease Hx of Infectious Diseases: None - Past Medical History & Family History Past Medical History?: Yes - Past Social History Smoking Status: Never Smoked - CARDIAC Hx Congestive Heart Failure: Yes Hx Hypercholesterolemia: Yes Hx Hypertension: Yes Hx Pacemaker: Yes - PULMONARY Hx Respiratory Disorders: No - NEUROLOGICAL Hx Neurological Disorder: No - HEENT Hx HEENT Problems: No - RENAL Hx Chronic Kidney Disease: No - ENDOCRINE/METABOLIC Hx Diabetes Mellitus Type 2: Yes - HEMATOLOGICAL/ONCOLOGICAL Hx Blood Disorders: No - INTEGUMENTARY Hx Dermatological Problems: No - MUSCULOSKELETAL/RHEUMATOLOGICAL Hx Arthritis: Yes - GASTROINTESTINAL Hx Gastrointestinal Disorders: No - GENITOURINARY/GYNECOLOGICAL Hx Genitourinary Disorders: No - PSYCHIATRIC Hx Substance Use: No - SURGICAL HISTORY Hx Appendectomy: Yes - ANESTHESIA Hx Anesthesia: Yes Hx Anesthesia Reactions: No Hx Malignant Hyperthermia: No Meds Allergies/Adverse Reactions: Allergies Allergy/AdvReac Type Severity Reaction Status Date / Time No Known Allergies Allergy Verified 01/23/18 21:36 Results - Vital Signs Recent Vital Signs: Last Vital Signs Temp 97.5 F L 01/23/18 21:32 Pulse 81 01/23/18 21:32 Resp 20 01/23/18 22:50 BP 132/83 01/23/18 21:32 Pulse Ox 96 01/23/18 23:41 - Labs Result Diagrams: 01/23/18 22:28 01/23/18 22:28 Labs: Laboratory Results - last 24 hr 01/23/18 01/23/18 01/23/18 22:28 22:28 22:28 WBC 5.5 RBC 4.18 L Hgb 10.0 L Hct 33.0 L MCV 78.8 L MCH 23.8 L MCHC 30.2 L RDW 22.1 H Plt Count 150 MPV 7.3 Neut % (Auto) 67.9 Lymph % (Auto) 14.5 L [place] % (Auto) 16.2 H Eos % (Auto) 1.0 Baso % (Auto) 0.4 Neut # (Auto) 3.8 Lymph # (Auto) 0.8 L [place] # (Auto) 0.9 H Eos # (Auto) 0.1 Baso # (Auto) 0.0 PT 15.9 H INR 1.5 APTT 36 H Sodium 139 Potassium 4.3 Chloride 103 Carbon Dioxide 27 Anion Gap 13 BUN 14 Creatinine 0.9 Est GFR ( Amer) > 60 Est GFR (Non-Af Amer) > 60 Random Glucose 137 H Calcium 8.1 L Total Bilirubin 1.2 AST 38 ALT 14 L Alkaline Phosphatase 91 Troponin I 0.0400 NT-Pro-B Natriuret Pep 5550 H Total Protein 7.8 Albumin 3.6 Globulin 4.2 H Albumin/Globulin Ratio 0.9 L
[2018-01-24 08:18] LABS: PLATELET COUNT 141 K/uL (130-400); WHITE BLOOD COUNT 6.1 K/uL (4.8-10.8)
[2018-01-24 08:22] LABS: HEMOGLOBIN 9.9 g/dL (12.0-18.0); MEAN CELL VOLUME 78.4 fL (80.0-94.0); MEAN CORPUSCULAR HEMOGLOBIN 24.5 pg (27.0-31.0); MEAN CORPUSCULAR HGB CONC 31.2 g/dL (33.0-37.0); MEAN PLATELET VOLUME 7.6 fL (7.2-11.7); RBC 4.04 Mil/uL (4.40-5.90); RED CELL DISTRIBUTION WIDTH 21.3 % (11.5-14.5)
[2018-01-24 08:36] LABS: ALB/GLOB RATIO 0.9 (1.0-2.1); ALBUMIN 3.5 g/dL (3.5-5.0); ALT/SGPT 16 U/L (21-72); AST/SGOT 28 U/L (17-59); BLOOD UREA NITROGEN 14 mg/dL (9-20); CALCIUM 8.1 mg/dl (8.6-10.4); GFR NON-AFRICAN AMERICAN > 60
[2018-01-24 08:45] LABS: B-TYPE NATRIURETIC PEPTIDE 6490 pg/mL (0-900)
--- NOTE | 2018-01-24 08:58 | RAD ---
Date of service: 01/23/2018 PROCEDURE: CHEST RADIOGRAPH, 1 VIEW HISTORY: chest pain COMPARISON: 12/23/2017 FINDINGS: LUNGS: The lungs are well inflated and clear. PLEURA: No pneumothorax or pleural effusion. CARDIOVASCULAR: There is persistent severe cardiomegaly. There is stable position of left-sided AICD. No aortic atherosclerotic calcifications present. OSSEOUS STRUCTURES: Within normal limits for the patient's age. VISUALIZED UPPER ABDOMEN: Normal. OTHER FINDINGS: None. IMPRESSION: No active pulmonary disease. Severe cardiomegaly.
[2018-01-24 09:14] LABS: EOS # 0.2 K/uL (0.0-0.7); LYMPH # 0.6 K/uL (1.0-4.3); MONO # 0.8 K/uL (0.0-0.8); NEUT # 4.6 K/uL (1.8-7.0)
[2018-01-24 09:20] LABS: ANISOCYTOSIS SLIGHT; EOSINOPHIL 2 % (0-4); LYMPHOCYTE 10 % (20-40); MONOCYTE 13 % (0-10); NEUTROPHIL 75 % (50-75); PLATELET ESTIMATE NORMAL (NORMAL); TOTAL CELLS COUNTED 100
[2018-01-24 09:22] LABS: HYPOCHROMIC MODERATE; MICROCYTOSIS SLIGHT; POLYCHROMIC SLIGHT; TARGET CELLS SLIGHT
[2018-01-24] MEDS ORDERED: Enoxaparin 150 mg Syringe SC SCH (10:00)
[2018-01-24] MEDS: Sacubitril/Valsartan 24-26mg Tab PO SCH ×2 (10:35→19:26)
[2018-01-24] MEDS: Enoxaparin 40 mg Syringe SC SCH ×2 (11:26→11:35)
--- NOTE | 2018-01-24 18:36 | CP.PCM.CON ---
History of Present Illness - History of Present Illness History of Present Illness: Podiatry consult note for Dr. Montoya, 67 year old male with a PMHx of CHF, defibrillator, HTN, and chronic venous stasis ulcer presented to the ER yesterday with SOB over the last few days. Patient was admitted at this time for possibly worsening CHF. Podiatry was consulted for a venous stasis ulcer to the left lower extremity. Patient states he sees Dr. Montoya regularly and last saw him on Saturday 1 week ago for wound care. Patient complains of pain and burning to the site. Patient denies any other pedal complaints. Patient denies N/F/V/posterior calf pain Review of Systems - Review of Systems All systems: reviewed and no additional remarkable complaints except Review of Systems: As per HPI Past Patient History - Infectious Disease Hx of Infectious Diseases: None - Past Medical History & Family History Past Medical History?: Yes - Past Social History Smoking Status: Former Smoker - CARDIAC Hx Congestive Heart Failure: Yes Hx Hypercholesterolemia: Yes Hx Hypertension: Yes Hx Pacemaker: Yes - PULMONARY Hx Respiratory Disorders: No - NEUROLOGICAL Hx Neurological Disorder: No - HEENT Hx HEENT Problems: No - RENAL Hx Chronic Kidney Disease: No - ENDOCRINE/METABOLIC Hx Diabetes Mellitus Type 2: Yes - HEMATOLOGICAL/ONCOLOGICAL Hx Blood Disorders: No - INTEGUMENTARY Hx Dermatological Problems: No - MUSCULOSKELETAL/RHEUMATOLOGICAL Hx Arthritis: Yes Hx Falls: No - GASTROINTESTINAL Hx Gastrointestinal Disorders: No - GENITOURINARY/GYNECOLOGICAL Hx Genitourinary Disorders: No - PSYCHIATRIC Hx Substance Use: No - SURGICAL HISTORY Hx Appendectomy: Yes - ANESTHESIA Hx Anesthesia: Yes Hx Anesthesia Reactions: No Hx Malignant Hyperthermia: No Meds Allergies/Adverse Reactions: Allergies Allergy/AdvReac Type Severity Reaction Status Date / Time No Known Allergies Allergy Verified 01/23/18 21:36 - Medications Medications: Current Medications Aspirin (Aspirin Chewable) 81 mg PO DAILY [facility] Carvedilol (Coreg) 3.125 mg PO BID [facility] Last Admin: 01/24/18 10:59 Dose: 3.125 mg Enoxaparin Sodium (Lovenox) 40 mg SC DAILY [facility] Last Admin: 01/24/18 11:35 Dose: Not Given Furosemide (Lasix) 80 mg IVP DAILY [facility] Last Admin: 01/24/18 11:27 Dose: 80 mg Promethazine HCl/Dextromethorphan (Phenergan Dm Syrup) 10 ml PO TID PRN PRN Reason: Cough Rosuvastatin Calcium (Crestor) 5 mg PO HS [facility] Sacubitril/Valsartan (Entresto 24 Mg-26 Mg) 1 tab PO BID [facility] Last Admin: 01/24/18 10:35 Dose: 1 tab Physical Exam - Constitutional Appears: Well, Non-toxic, No Acute Distress - Head Exam Head Exam: ATRAUMATIC, NORMOCEPHALIC - Extremities Exam Additional comments: Bilateral Lower Extremity Exam Previous dressing noted with serous drainage to the left leg VASC: DP and PT 1/4 palpable, CFT less than 3 seconds, TG warm to warm within normal limits NEURO: grossly intact DERM: 4 cm X 2 cm X 0.2 cm superficial venous stasis ulcer noted to the lateral aspect of the left leg, wound base is 70% fibrotic and 30% granular, surrounding hyperpigmentation noted, no active drainage, no malodor, no probe to bone, no other wounds noted, no clinical signs of infection ORTHO: pain on palpation to the ulceration, MSk 5/5 otherwise - Neurological Exam Neurological exam: Alert, Normal Gait, Oriented x3 - Psychiatric Exam Psychiatric exam: Normal Affect, Normal Mood Results - Vital Signs Recent Vital Signs: Last Vital Signs Temp 97.9 F 01/24/18 10:29 Pulse 89 01/24/18 15:58 Resp 19 01/24/18 10:29 BP 144/80 01/24/18 11:27 Pulse Ox 96 01/24/18 10:29 - Labs Result Diagrams: 01/24/18 08:14 01/24/18 08:14 Labs: Laboratory Results - last 24 hr 01/23/18 01/23/18 01/23/18 22:28 22:28 22:28 WBC 5.5 RBC 4.18 L Hgb 10.0 L Hct 33.0 L MCV 78.8 L MCH 23.8 L MCHC 30.2 L RDW 22.1 H Plt Count 150 MPV 7.3 Neut % (Auto) 67.9 Lymph % (Auto) 14.5 L [place] % (Auto) 16.2 H Eos % (Auto) 1.0 Baso % (Auto) 0.4 Neut # (Auto) 3.8 Lymph # (Auto) 0.8 L [place] # (Auto) 0.9 H Eos # (Auto) 0.1 Baso # (Auto) 0.0 Neutrophils % (Manual) Lymphocytes % (Manual) Monocytes % (Manual) Eosinophils % (Manual) Platelet Estimate Polychromasia Hypochromasia (manual) Anisocytosis (manual) Microcytosis (manual) Target Cells PT 15.9 H INR 1.5 APTT 36 H Sodium 139 Potassium 4.3 Chloride 103 Carbon Dioxide 27 Anion Gap 13 BUN 14 Creatinine 0.9 Est GFR ( Amer) > 60 Est GFR (Non-Af Amer) > 60 POC Glucose (mg/dL) Random Glucose 137 H Calcium 8.1 L Total Bilirubin 1.2 AST 38 ALT 14 L Alkaline Phosphatase 91 Troponin I 0.0400 NT-Pro-B Natriuret Pep 5550 H Total Protein 7.8 Albumin 3.6 Globulin 4.2 H Albumin/Globulin Ratio 0.9 L 01/24/18 01/24/18 01/24/18 08:14 08:14 17:30 WBC 6.1 RBC 4.04 L Hgb 9.9 L Hct 31.7 L MCV 78.4 L MCH 24.5 L MCHC 31.2 L RDW 21.3 H Plt Count 141 MPV 7.6 Neut % (Auto) 75.0 Lymph % (Auto) 9.0 L [place] % (Auto) 13.0 H Eos % (Auto) 3.0 Baso % (Auto) 0.0 Neut # (Auto) 4.6 Lymph # (Auto) 0.6 L [place] # (Auto) 0.8 Eos # (Auto) 0.2 Baso # (Auto) 0.0 Neutrophils % (Manual) 75 Lymphocytes % (Manual) 10 L Monocytes % (Manual) 13 H Eosinophils % (Manual) 2 Platelet Estimate Normal Polychromasia Slight Hypochromasia (manual) Moderate Anisocytosis (manual) Slight Microcytosis (manual) Slight Target Cells Slight PT INR APTT Sodium 139 Potassium 4.2 Chloride 102 Carbon Dioxide 29 Anion Gap 12 BUN 14 Creatinine 0.9 Est GFR ( Amer) > 60 Est GFR (Non-Af Amer) > 60 POC Glucose (mg/dL) 92 Random Glucose 89 Calcium 8.1 L Total Bilirubin 0.9 AST 28 ALT 16 L Alkaline Phosphatase 93 Troponin I 0.0380 NT-Pro-B Natriuret Pep 6490 H Total Protein 7.5 Albumin 3.5 Globulin 4.0 H Albumin/Globulin Ratio 0.9 L Assessment & Plan - Assessment and Plan (Free Text) Assessment: 67 y/o male seen and evaluated for venous stasis ulceration to the left lateral leg Plan: Patient seen and evaluated Plan discussed with attending Dr. Montoya Chart, labs and vitals were reviewed Wound cleansed with saline and dressed with xeroform, gauze, kerlix and JUANITA Patient stable from podiatry standpoint Podiatry will continue to follow patient while he is in house - Date & Time Date: 01/24/18 Time: 18:55
--- NOTE | 2018-01-24 18:58 | CP.PCM.PN ---
Subjective - Date & Time of Evaluation Date of Evaluation: 01/24/18 Time of Evaluation: 11:30 - Subjective Subjective: clinically same Objective - Vital Signs/Intake and Output Vital Signs (last 24 hours): Temp Pulse Resp BP Pulse Ox 97.9 F 89 19 144/80 96 01/24/18 10:29 01/24/18 15:58 01/24/18 10:29 01/24/18 11:27 01/24/18 10:29 Intake and Output: 01/24/18 01/24/18 06:59 18:59 Intake Total 360 Output Total 600 600 Balance -600 -240 - Medications Medications: Current Medications Aspirin (Aspirin Chewable) 81 mg PO DAILY [facility] Carvedilol (Coreg) 3.125 mg PO BID [facility] Last Admin: 01/24/18 10:59 Dose: 3.125 mg Enoxaparin Sodium (Lovenox) 40 mg SC DAILY [facility] Last Admin: 01/24/18 11:35 Dose: Not Given Furosemide (Lasix) 80 mg IVP DAILY [facility] Last Admin: 01/24/18 11:27 Dose: 80 mg Promethazine HCl/Dextromethorphan (Phenergan Dm Syrup) 10 ml PO TID PRN PRN Reason: Cough Rosuvastatin Calcium (Crestor) 5 mg PO HS [facility] Sacubitril/Valsartan (Entresto 24 Mg-26 Mg) 1 tab PO BID [facility] Last Admin: 01/24/18 10:35 Dose: 1 tab - Labs Labs: 01/24/18 08:14 01/24/18 08:14 PT 15.9 SECONDS (9.7-12.2) H 01/23/18 22:28 INR 1.5 01/23/18 22:28 APTT 36 SECONDS (21-34) H 01/23/18 22:28 - Constitutional Appears: Well - Head Exam Head Exam: ATRAUMATIC, NORMAL INSPECTION, NORMOCEPHALIC - Eye Exam Eye Exam: EOMI, Normal appearance, PERRL Pupil Exam: NORMAL ACCOMODATION, PERRL - ENT Exam ENT Exam: Mucous Membranes Moist, Normal Exam - Neck Exam Neck Exam: Full ROM, Normal Inspection. absent: Lymphadenopathy - Respiratory Exam Respiratory Exam: Decreased Breath Sounds - Cardiovascular Exam Cardiovascular Exam: REGULAR RHYTHM, +S1, +S2 - GI/Abdominal Exam GI & Abdominal Exam: Soft, Diminished Bowel Sounds - Rectal Exam Rectal Exam: Deferred
[2018-01-24] MEDS: Promethazine DM 12.5 mg-30 mg/10 ml Syrup PO PRN (19:27)
--- NOTE | 2018-01-24 23:34 | CARD ---
APPROVED REPORT Date of service: 01/23/2018 EKG Measurement Heart [id number] <Conclusion> Ventricular-paced rhythm with intrinsic complexes Abnormal ECG
[2018-01-25] MEDS: Sacubitril/Valsartan 24-26mg Tab PO SCH ×2 (10:52→18:30)
[2018-01-25] MEDS: Enoxaparin 40 mg Syringe SC SCH (10:53)
[2018-01-25] MEDS: Promethazine DM 12.5 mg-30 mg/10 ml Syrup PO PRN ×2 (10:54→21:18)
--- NOTE | 2018-01-25 12:59 | CP.PCM.PN ---
Subjective - Date & Time of Evaluation Date of Evaluation: 01/25/18 Time of Evaluation: 12:56 - Subjective Subjective: Podiatry consult note for Dr. Motnoya: 67 year old male patient, seen and examined for L leg venous stasis ulceration. Patient is resting comfortably in bed and in NAD. He denies any acute events overnight. Patient reports burning to ulceration site today with moderate pain. He denies any other pedal complaints at this time. Patient denies N/F/V/chills Objective - Vital Signs/Intake and Output Vital Signs (last 24 hours): Temp Pulse Resp BP Pulse Ox 97.8 F 76 20 100/64 95 01/24/18 23:00 01/25/18 12:03 01/24/18 23:00 01/25/18 10:53 01/24/18 23:00 Intake and Output: 01/25/18 01/25/18 06:59 18:59 Intake Total 300 Output Total 1300 Balance -1000 - Medications Medications: Current Medications Aspirin (Aspirin Chewable) 81 mg PO DAILY [facility] Last Admin: 01/25/18 10:51 Dose: 81 mg Carvedilol (Coreg) 3.125 mg PO BID [facility] Last Admin: 01/25/18 10:51 Dose: 3.125 mg Enoxaparin Sodium (Lovenox) 40 mg SC DAILY [facility] Last Admin: 01/25/18 10:53 Dose: Not Given Furosemide (Lasix) 80 mg IVP DAILY [facility] Last Admin: 01/25/18 10:53 Dose: Not Given Promethazine HCl/Dextromethorphan (Phenergan Dm Syrup) 10 ml PO TID PRN PRN Reason: Cough Last Admin: 01/25/18 10:54 Dose: 10 ml Rosuvastatin Calcium (Crestor) 5 mg PO HS [facility] Last Admin: 01/24/18 21:31 Dose: 5 mg Sacubitril/Valsartan (Entresto 24 Mg-26 Mg) 1 tab PO BID [facility] Last Admin: 01/25/18 10:52 Dose: 1 tab - Labs Labs: 01/24/18 08:14 01/24/18 08:14 PT 15.9 SECONDS (9.7-12.2) H 01/23/18 22:28 INR 1.5 01/23/18 22:28 APTT 36 SECONDS (21-34) H 01/23/18 22:28 - Constitutional Appears: Non-toxic, No Acute Distress - Head Exam Head Exam: ATRAUMATIC - Extremities Exam Additional comments: B/L lower extremity focused exam: L leg dressing: C/D/I VASC: DP and PT 1/4 palpable, CFT less than 3 seconds, TG warm to warm within normal limits NEURO: Gross and protective sensation intact DERM: 4 cm X 2 cm X 0.2 cm superficial venous stasis ulcer noted to the lateral aspect of the left leg, wound base is 70% fibrotic and 30% granular, surrounding hyperpigmentation noted, no active drainage, no malodor, no probe to bone, no other wounds noted, no clinical signs of infection ORTHO: pain on palpation to the ulceration, MSK 5/5 otherwise - Neurological Exam Neurological Exam: Alert, Awake, Oriented x3 - Psychiatric Exam Psychiatric exam: Normal Affect, Normal Mood Assessment and Plan - Assessment and Plan (Free Text) Assessment: 67 y/o male seen and evaluated for venous stasis ulceration to the left lateral leg Plan: Patient seen and evaluated with Dr. Montoya WBC 6.1 Wound cleansed with saline and dressed with xeroform, gauze, kerlix and JUANITA Patient stable from podiatry standpoint, pending D/C Dr. Montoya recommending [facility] placement for continued wound care Podiatry will continue to follow patient while he is in house
--- NOTE | 2018-01-25 14:23 | CP.PCM.CON ---
History of Present Illness - History of Present Illness History of Present Illness: Patient presented with acute on chronic worsening of cough, wheezing and congestion over the past few weeks. Now appears somewhat improved, ambulating in [place] denies CP, fevers or chills PMHX: PMH: NICM, Defibrillator and pacemaker(2011), CHF, HTN, liver cirrhosis, pleural effusions, DMII?, Cardiomyopathy, AICD placement. chronic LE venous stasis dermatitis PSH: Defibrillator/pacemaker placed in 2011, multiple paracentesis/thoracentesis Review of Systems - Review of Systems All systems: reviewed and no additional remarkable complaints except Past Patient History - Infectious Disease Hx of Infectious Diseases: None - Past Medical History & Family History Past Medical History?: Yes - Past Social History Smoking Status: Former Smoker - CARDIAC Hx Congestive Heart Failure: Yes Hx Hypercholesterolemia: Yes Hx Hypertension: Yes Hx Pacemaker: Yes - PULMONARY Hx Respiratory Disorders: No - NEUROLOGICAL Hx Neurological Disorder: No - HEENT Hx HEENT Problems: No - RENAL Hx Chronic Kidney Disease: No - ENDOCRINE/METABOLIC Hx Diabetes Mellitus Type 2: Yes - HEMATOLOGICAL/ONCOLOGICAL Hx Blood Disorders: No - INTEGUMENTARY Hx Dermatological Problems: No - MUSCULOSKELETAL/RHEUMATOLOGICAL Hx Arthritis: Yes Hx Falls: No - GASTROINTESTINAL Hx Gastrointestinal Disorders: No - GENITOURINARY/GYNECOLOGICAL Hx Genitourinary Disorders: No - PSYCHIATRIC Hx Substance Use: No - SURGICAL HISTORY Hx Appendectomy: Yes - ANESTHESIA Hx Anesthesia: Yes Hx Anesthesia Reactions: No Hx Malignant Hyperthermia: No Meds Allergies/Adverse Reactions: Allergies Allergy/AdvReac Type Severity Reaction Status Date / Time No Known Allergies Allergy Verified 01/23/18 21:36 - Medications Medications: Current Medications Aspirin (Aspirin Chewable) 81 mg PO DAILY [facility] Last Admin: 01/25/18 10:51 Dose: 81 mg Carvedilol (Coreg) 3.125 mg PO BID [facility] Last Admin: 01/25/18 10:51 Dose: 3.125 mg Enoxaparin Sodium (Lovenox) 40 mg SC DAILY [facility] Last Admin: 01/25/18 10:53 Dose: Not Given Furosemide (Lasix) 80 mg IVP DAILY [facility] Last Admin: 01/25/18 10:53 Dose: Not Given Promethazine HCl/Dextromethorphan (Phenergan Dm Syrup) 10 ml PO TID PRN PRN Reason: Cough Last Admin: 01/25/18 10:54 Dose: 10 ml Rosuvastatin Calcium (Crestor) 5 mg PO HS [facility] Last Admin: 01/24/18 21:31 Dose: 5 mg Sacubitril/Valsartan (Entresto 24 Mg-26 Mg) 1 tab PO BID [facility] Last Admin: 01/25/18 10:52 Dose: 1 tab Physical Exam - Constitutional Appears: Unkempt - Head Exam Head Exam: ATRAUMATIC, NORMAL INSPECTION, NORMOCEPHALIC - Eye Exam Eye Exam: EOMI, Normal appearance, PERRL - ENT Exam ENT Exam: Mucous Membranes Moist, Normal Oropharynx - Neck Exam Neck exam: Positive for: Normal Inspection. Negative for: Tenderness, Thyromegaly - Respiratory Exam Respiratory Exam: Rhonchi, Wheezes - Cardiovascular Exam Cardiovascular Exam: REGULAR RHYTHM, +S1, +S2 - GI/Abdominal Exam GI & Abdominal Exam: Normal Bowel Sounds, Soft. absent: Tenderness - Extremities Exam Extremities exam: Positive for: pedal edema. Negative for: calf tenderness - Skin Skin Exam: Dry (in both LE's with stasis dermatitis changes), Rash Results - Vital Signs Recent Vital Signs: Last Vital Signs Temp 97.8 F 01/24/18 23:00 Pulse 76 01/25/18 12:03 Resp 20 01/24/18 23:00 BP 100/64 01/25/18 10:53 Pulse Ox 95 01/24/18 23:00 - Labs Result Diagrams: 01/24/18 08:14 01/24/18 08:14 Labs: Laboratory Results - last 24 hr 01/24/18 17:30 POC Glucose (mg/dL) 92 - EKG Data EKG Interpreted by: Myself Assessment & Plan - Assessment and Plan (Free Text) Assessment: Patient with known dilated NICM severe s/p AICD implant 2011 Presents with URI/Bronchitis sx's and acute on chronic exacerbation of CHF - EKG: V. paced - ntPBNP: 1.5-2x his baseline - course breath sounds b/l with wheezing B/L: improved - mild LE edema with chronic venous stasis dermatitis and wound dressing PLAN: Pulmonary supportive care cont CHF therapy: coreg and entresto , cont asa and statin ---> lasix IV 40-60mg BID, CHF diet ---> DVT prophylaxis D/C planning on medical therapy onnce breathing improves CHF diet
--- NOTE | 2018-01-25 19:50 | CP.PCM.PN ---
Subjective - Date & Time of Evaluation Date of Evaluation: 01/25/18 Time of Evaluation: 10:30 - Subjective Subjective: clinically same Objective - Vital Signs/Intake and Output Vital Signs (last 24 hours): Temp Pulse Resp BP Pulse Ox 97.3 F L 86 20 105/64 94 L 01/25/18 15:30 01/25/18 16:00 01/25/18 15:30 01/25/18 15:30 01/25/18 15:30 Intake and Output: 01/25/18 01/26/18 18:59 06:59 Intake Total 300 Output Total 1000 Balance -700 - Medications Medications: Current Medications Aspirin (Aspirin Chewable) 81 mg PO DAILY [facility] Last Admin: 01/25/18 10:51 Dose: 81 mg Carvedilol (Coreg) 3.125 mg PO BID [facility] Last Admin: 01/25/18 18:36 Dose: Not Given Enoxaparin Sodium (Lovenox) 40 mg SC DAILY [facility] Last Admin: 01/25/18 10:53 Dose: Not Given Furosemide (Lasix) 80 mg IVP DAILY [facility] Last Admin: 01/25/18 10:53 Dose: Not Given Promethazine HCl/Dextromethorphan (Phenergan Dm Syrup) 10 ml PO TID PRN PRN Reason: Cough Last Admin: 01/25/18 10:54 Dose: 10 ml Rosuvastatin Calcium (Crestor) 5 mg PO HS [facility] Last Admin: 01/24/18 21:31 Dose: 5 mg Sacubitril/Valsartan (Entresto 24 Mg-26 Mg) 1 tab PO BID [facility] Last Admin: 01/25/18 18:30 Dose: 1 tab - Labs Labs: 01/24/18 08:14 01/24/18 08:14 PT 15.9 SECONDS (9.7-12.2) H 01/23/18 22:28 INR 1.5 01/23/18 22:28 APTT 36 SECONDS (21-34) H 01/23/18 22:28 - Constitutional Appears: Well - Head Exam Head Exam: ATRAUMATIC, NORMAL INSPECTION, NORMOCEPHALIC - Eye Exam Eye Exam: EOMI, Normal appearance, PERRL Pupil Exam: NORMAL ACCOMODATION, PERRL - ENT Exam ENT Exam: Mucous Membranes Moist, Normal Exam - Neck Exam Neck Exam: Full ROM, Normal Inspection. absent: Lymphadenopathy - Respiratory Exam Respiratory Exam: Decreased Breath Sounds - Cardiovascular Exam Cardiovascular Exam: REGULAR RHYTHM, +S1, +S2 - GI/Abdominal Exam GI & Abdominal Exam: Soft, Diminished Bowel Sounds - Rectal Exam Rectal Exam: Deferred
--- NOTE | 2018-01-26 09:22 | CP.PCM.PN ---
Subjective - Date & Time of Evaluation Date of Evaluation: 01/26/18 Time of Evaluation: 09:19 - Subjective Subjective: Podiatry Progress Note: Dr. Montoya 67M patient, seen and examined at bedside, for L leg venous stasis ulceration. Patient is AAOx3 and in NAD. He denies any acute events overnight. He reports pain to his L leg only when he walks or when is ulceration is touched. Patient denies any other pedal complaints at this time. Denies N/V/F/SOB/CP. Objective - Vital Signs/Intake and Output Vital Signs (last 24 hours): Temp Pulse Resp BP Pulse Ox 98.0 F 86 20 108/76 97 01/26/18 07:00 01/26/18 08:02 01/26/18 07:00 01/26/18 07:00 01/26/18 07:00 Intake and Output: 01/26/18 01/26/18 06:59 18:59 Intake Total 120 Output Total 400 Balance -280 - Medications Medications: Current Medications Aspirin (Aspirin Chewable) 81 mg PO DAILY [facility] Last Admin: 01/25/18 10:51 Dose: 81 mg Carvedilol (Coreg) 3.125 mg PO BID [facility] Last Admin: 01/25/18 18:36 Dose: Not Given Enoxaparin Sodium (Lovenox) 40 mg SC DAILY [facility] Last Admin: 01/25/18 10:53 Dose: Not Given Furosemide (Lasix) 80 mg IVP DAILY [facility] Last Admin: 01/25/18 10:53 Dose: Not Given Promethazine HCl/Dextromethorphan (Phenergan Dm Syrup) 10 ml PO TID PRN PRN Reason: Cough Last Admin: 01/25/18 21:18 Dose: 10 ml Rosuvastatin Calcium (Crestor) 5 mg PO HS [facility] Last Admin: 01/25/18 21:18 Dose: 5 mg Sacubitril/Valsartan (Entresto 24 Mg-26 Mg) 1 tab PO BID [facility] Last Admin: 01/25/18 18:30 Dose: 1 tab - Labs Labs: 01/24/18 08:14 01/24/18 08:14 PT 15.9 SECONDS (9.7-12.2) H 01/23/18 22:28 INR 1.5 01/23/18 22:28 APTT 36 SECONDS (21-34) H 01/23/18 22:28 - Constitutional Appears: Well, Non-toxic, No Acute Distress - Head Exam Head Exam: ATRAUMATIC, NORMOCEPHALIC - Extremities Exam Additional comments: B/L lower extremity focused exam: VASC: DP and PT 1/4 palpable, CFT less than 3 seconds, TG warm to warm within normal limits NEURO: Gross and protective sensation intact DERM: 4 cm X 2 cm X 0.2 cm superficial venous stasis ulcer noted to the lateral aspect of the left leg, wound base is 70% fibrotic and 30% granular, surrounding hyperpigmentation noted, no active drainage, no malodor, no probe to bone, no other wounds noted, no clinical signs of infection ORTHO: pain on palpation to the ulceration, MSK 5/5 otherwise - Neurological Exam Neurological Exam: Alert, Awake, Oriented x3 - Psychiatric Exam Psychiatric exam: Normal Affect, Normal Mood Assessment and Plan - Assessment and Plan (Free Text) Assessment: 67M patient, seen and examined at bedside, for L leg venous stasis ulceration. Plan: Patient seen and evaluated with Dr. Montoya VSS, absent leukocytosis Wound cleansed with saline and dressed with xeroform, gauze, kerlix and JUANITA Patient stable from podiatry standpoint, pending D/C Dr. Montoya recommending [facility] placement for continued wound care Podiatry will continue to follow patient while he is in house
[2018-01-26] MEDS: Sacubitril/Valsartan 24-26mg Tab PO SCH ×2 (10:27→18:28)
[2018-01-26] MEDS: Promethazine DM 12.5 mg-30 mg/10 ml Syrup PO PRN (10:27)
[2018-01-26] MEDS: Enoxaparin 40 mg Syringe SC SCH (10:28)
--- NOTE | 2018-01-26 14:14 | CP.PCM.PN ---
Subjective - Date & Time of Evaluation Date of Evaluation: 01/26/18 Time of Evaluation: 10:45 - Subjective Subjective: clinically same Objective - Vital Signs/Intake and Output Vital Signs (last 24 hours): Temp Pulse Resp BP Pulse Ox 98.0 F 75 20 108/76 97 01/26/18 07:00 01/26/18 13:13 01/26/18 07:00 01/26/18 07:00 01/26/18 07:00 Intake and Output: 01/26/18 01/26/18 06:59 18:59 Intake Total 120 Output Total 400 Balance -280 - Medications Medications: Current Medications Aspirin (Aspirin Chewable) 81 mg PO DAILY [facility] Last Admin: 01/26/18 10:27 Dose: 81 mg Carvedilol (Coreg) 3.125 mg PO BID [facility] Last Admin: 01/26/18 10:27 Dose: 3.125 mg Enoxaparin Sodium (Lovenox) 40 mg SC DAILY [facility] Last Admin: 01/26/18 10:28 Dose: Not Given Furosemide (Lasix) 80 mg IVP DAILY [facility] Last Admin: 01/26/18 10:11 Dose: Not Given Promethazine HCl/Dextromethorphan (Phenergan Dm Syrup) 10 ml PO TID PRN PRN Reason: Cough Last Admin: 01/26/18 10:27 Dose: 10 ml Rosuvastatin Calcium (Crestor) 5 mg PO HS [facility] Last Admin: 01/25/18 21:18 Dose: 5 mg Sacubitril/Valsartan (Entresto 24 Mg-26 Mg) 1 tab PO BID [facility] Last Admin: 01/26/18 10:27 Dose: 1 tab - Labs Labs: 01/24/18 08:14 01/24/18 08:14 PT 15.9 SECONDS (9.7-12.2) H 01/23/18 22:28 INR 1.5 01/23/18 22:28 APTT 36 SECONDS (21-34) H 01/23/18 22:28 - Constitutional Appears: Well - Head Exam Head Exam: ATRAUMATIC, NORMAL INSPECTION, NORMOCEPHALIC - Eye Exam Eye Exam: EOMI, Normal appearance, PERRL Pupil Exam: NORMAL ACCOMODATION, PERRL - ENT Exam ENT Exam: Mucous Membranes Moist, Normal Exam - Neck Exam Neck Exam: Full ROM, Normal Inspection. absent: Lymphadenopathy - Respiratory Exam Respiratory Exam: Decreased Breath Sounds - Cardiovascular Exam Cardiovascular Exam: REGULAR RHYTHM, +S1, +S2 - GI/Abdominal Exam GI & Abdominal Exam: Diminished Bowel Sounds - Rectal Exam Rectal Exam: Deferred
--- NOTE | 2018-01-26 17:13 | CP.PCM.PN ---
Subjective - Date & Time of Evaluation Date of Evaluation: 01/26/18 Time of Evaluation: 17:10 - Subjective Subjective: SOB improved ambulating in hallway LE edema improved wound care issues addressed Objective - Vital Signs/Intake and Output Vital Signs (last 24 hours): Temp Pulse Resp BP Pulse Ox 97.3 F L 75 20 128/67 93 L 01/26/18 15:25 01/26/18 16:00 01/26/18 15:25 01/26/18 16:39 01/26/18 15:25 Intake and Output: 01/26/18 01/26/18 06:59 18:59 Intake Total 120 Output Total 400 400 Balance -280 -400 - Medications Medications: Current Medications Aspirin (Aspirin Chewable) 81 mg PO DAILY [facility] Last Admin: 01/26/18 10:27 Dose: 81 mg Carvedilol (Coreg) 3.125 mg PO BID [facility] Last Admin: 01/26/18 10:27 Dose: 3.125 mg Enoxaparin Sodium (Lovenox) 40 mg SC DAILY [facility] Last Admin: 01/26/18 10:28 Dose: Not Given Furosemide (Lasix) 80 mg IVP DAILY [facility] Last Admin: 01/26/18 10:11 Dose: Not Given Furosemide (Lasix) 40 mg IVP Q4 [facility] Stop: 01/26/18 20:01 Last Admin: 01/26/18 16:39 Dose: 40 mg Promethazine HCl/Dextromethorphan (Phenergan Dm Syrup) 10 ml PO TID PRN PRN Reason: Cough Last Admin: 01/26/18 10:27 Dose: 10 ml Rosuvastatin Calcium (Crestor) 5 mg PO HS [facility] Last Admin: 01/25/18 21:18 Dose: 5 mg Sacubitril/Valsartan (Entresto 24 Mg-26 Mg) 1 tab PO BID [facility] Last Admin: 01/26/18 10:27 Dose: 1 tab - Labs Labs: 01/24/18 08:14 01/24/18 08:14 PT 15.9 SECONDS (9.7-12.2) H 01/23/18 22:28 INR 1.5 01/23/18 22:28 APTT 36 SECONDS (21-34) H 01/23/18 22:28 - Constitutional Appears: No Acute Distress - Head Exam Head Exam: ATRAUMATIC, NORMAL INSPECTION, NORMOCEPHALIC - Respiratory Exam Respiratory Exam: Clear to Ausculation Bilateral, NORMAL BREATHING PATTERN. absent: Rhonchi, Wheezes - GI/Abdominal Exam GI & Abdominal Exam: Soft. absent: Tenderness - Extremities Exam Extremities Exam: absent: Calf Tenderness, Normal Inspection (dry, CEAP 5&6 venous stasis changes in legs below the knee) Assessment and Plan - Assessment and Plan (Free Text) Assessment: Patient with known dilated NICM severe s/p AICD implant 2011 Presents with URI/Bronchitis sx's and acute on chronic exacerbation of CHF - EKG: V. paced - ntPBNP: 1.5-2x his baseline - course breath sounds b/l with wheezing B/L: improved - mild LE edema with chronic venous stasis dermatitis and wound dressing PLAN: Pulmonary supportive care cont CHF therapy: coreg and entresto , cont asa and statin ---> maintainence lasix IV 40 BID, CHF diet; monitor lytes as outpatient ---> DVT prophylaxis D/C planning on medical therapy once breathing improves; CHF diet Wound care as outpatient
[2018-01-27] MEDS: Sacubitril/Valsartan 24-26mg Tab PO SCH ×2 (09:34→20:43)
[2018-01-27] MEDS: Enoxaparin 40 mg Syringe SC SCH (09:35)
[2018-01-27 11:43] LABS: BASO % 0.4 % (0.0-2.0); EOS # 0.2 K/uL (0.0-0.7); EOS % 3.2 % (0.0-4.0); HEMOGLOBIN 9.9 g/dL (12.0-18.0); LYMPH # 1.1 K/uL (1.0-4.3); LYMPH % 19.5 % (20.0-40.0); MEAN CELL VOLUME 77.7 fL (80.0-94.0); MEAN CORPUSCULAR HEMOGLOBIN 23.8 pg (27.0-31.0); MEAN CORPUSCULAR HGB CONC 30.6 g/dL (33.0-37.0); MEAN PLATELET VOLUME 8.2 fL (7.2-11.7); MONO # 0.9 K/uL (0.0-0.8); MONO % 16.6 % (0.0-10.0); NEUT # 3.3 K/uL (1.8-7.0); NEUT % 60.3 % (50.0-75.0); NRBC % 0.2 % (0.0-2.0); RBC 4.18 Mil/uL (4.40-5.90); RED CELL DISTRIBUTION WIDTH 21.5 % (11.5-14.5); WHITE BLOOD COUNT 5.4 K/uL (4.8-10.8)
[2018-01-27 12:08] LABS: ALB/GLOB RATIO 0.9 (1.0-2.1); ALBUMIN 3.7 g/dL (3.5-5.0); ALT/SGPT 15 U/L (21-72); AST/SGOT 31 U/L (17-59); BLOOD UREA NITROGEN 19 mg/dL (9-20); CALCIUM 8.4 mg/dl (8.6-10.4); GFR NON-AFRICAN AMERICAN > 60
[2018-01-27] MEDS: Promethazine DM 12.5 mg-30 mg/10 ml Syrup PO PRN (14:13)
--- NOTE | 2018-01-27 18:01 | CP.PCM.PN ---
Subjective - Date & Time of Evaluation Date of Evaluation: 01/27/18 Time of Evaluation: 11:15 - Subjective Subjective: clinically same Objective - Vital Signs/Intake and Output Vital Signs (last 24 hours): Temp Pulse Resp BP Pulse Ox 97.6 F 76 20 123/72 95 01/27/18 07:00 01/27/18 07:00 01/27/18 07:00 01/27/18 09:34 01/27/18 07:00 Intake and Output: 01/27/18 01/27/18 06:59 18:59 Output Total 1000 Balance -1000 - Medications Medications: Current Medications Aspirin (Aspirin Chewable) 81 mg PO DAILY [facility] Last Admin: 01/27/18 09:33 Dose: 81 mg Carvedilol (Coreg) 3.125 mg PO BID [facility] Last Admin: 01/27/18 09:33 Dose: 3.125 mg Enoxaparin Sodium (Lovenox) 40 mg SC DAILY [facility] Last Admin: 01/27/18 09:35 Dose: Not Given Furosemide (Lasix) 80 mg IVP DAILY [facility] Last Admin: 01/27/18 09:34 Dose: 80 mg Promethazine HCl/Dextromethorphan (Phenergan Dm Syrup) 10 ml PO TID PRN PRN Reason: Cough Last Admin: 01/27/18 14:13 Dose: 10 ml Rosuvastatin Calcium (Crestor) 5 mg PO HS [facility] Last Admin: 01/26/18 21:53 Dose: 5 mg Sacubitril/Valsartan (Entresto 24 Mg-26 Mg) 1 tab PO BID [facility] Last Admin: 01/27/18 09:34 Dose: 1 tab - Labs Labs: 01/27/18 11:21 01/27/18 11:21 PT 15.9 SECONDS (9.7-12.2) H 01/23/18 22:28 INR 1.5 01/23/18 22:28 APTT 36 SECONDS (21-34) H 01/23/18 22:28 - Constitutional Appears: Well - Head Exam Head Exam: ATRAUMATIC, NORMAL INSPECTION, NORMOCEPHALIC - Eye Exam Eye Exam: EOMI, Normal appearance, PERRL Pupil Exam: NORMAL ACCOMODATION, PERRL - ENT Exam ENT Exam: Mucous Membranes Moist, Normal Exam - Neck Exam Neck Exam: Full ROM, Normal Inspection. absent: Lymphadenopathy - Respiratory Exam Respiratory Exam: Decreased Breath Sounds - Cardiovascular Exam Cardiovascular Exam: REGULAR RHYTHM, +S1, +S2 - GI/Abdominal Exam GI & Abdominal Exam: Soft, Diminished Bowel Sounds - Rectal Exam Rectal Exam: Deferred Assessment and Plan - Assessment and Plan (Free Text) Plan: Spoke to the patient's and the family member Continue aspirin Coreg IV Lasix although patient advised that we may have to break sometimes a Lasix unit twice a day as patient blood pressure running on the lower side Entresto Follow-up with the cardiology and other [facility] As ordered
--- NOTE | 2018-01-27 19:03 | CP.PCM.PN ---
Subjective - Date & Time of Evaluation Date of Evaluation: 01/27/18 Time of Evaluation: 19:01 - Subjective Subjective: Podiatry Progress Note for Dr. Montoya 67 M seen for left leg venous stasis ulcer. Patient is AAO x 3 and NAD at time of visit. States that his leg does cause him pain but it is under control at the moment. Denies any acute overnight events or new pedal complaints. Denies any recent N/V/F/C/CP/SOB/D Objective - Vital Signs/Intake and Output Vital Signs (last 24 hours): Temp Pulse Resp BP Pulse Ox 97.6 F 76 20 123/72 95 01/27/18 07:00 01/27/18 07:00 01/27/18 07:00 01/27/18 09:34 01/27/18 07:00 - Medications Medications: Current Medications Aspirin (Aspirin Chewable) 81 mg PO DAILY [facility] Last Admin: 01/27/18 09:33 Dose: 81 mg Carvedilol (Coreg) 3.125 mg PO BID [facility] Last Admin: 01/27/18 09:33 Dose: 3.125 mg Enoxaparin Sodium (Lovenox) 40 mg SC DAILY [facility] Last Admin: 01/27/18 09:35 Dose: Not Given Furosemide (Lasix) 80 mg IVP DAILY [facility] Last Admin: 01/27/18 09:34 Dose: 80 mg Promethazine HCl/Dextromethorphan (Phenergan Dm Syrup) 10 ml PO TID PRN PRN Reason: Cough Last Admin: 01/27/18 14:13 Dose: 10 ml Rosuvastatin Calcium (Crestor) 5 mg PO HS [facility] Last Admin: 01/26/18 21:53 Dose: 5 mg Sacubitril/Valsartan (Entresto 24 Mg-26 Mg) 1 tab PO BID [facility] Last Admin: 01/27/18 09:34 Dose: 1 tab - Labs Labs: 01/27/18 11:21 01/27/18 11:21 PT 15.9 SECONDS (9.7-12.2) H 01/23/18 22:28 INR 1.5 01/23/18 22:28 APTT 36 SECONDS (21-34) H 01/23/18 22:28 - Constitutional Appears: Well, Non-toxic, No Acute Distress - Extremities Exam Additional comments: Left lower extremity focused exam: VASC: DP and PT 1/4 palpable, CFT less than 3 seconds, TG warm to warm within normal limits, no edema noted NEURO: Epicritic and protective sensation grossly intact DERM: 4 cm X 2 cm X 0.2 cm superficial venous stasis ulcer noted to the lateral aspect of the left leg, wound base is 70% fibrotic and 30% granular, surrounding hyperpigmentation noted, no active drainage, no malodor, no probe to bone, no other wounds noted, no clinical signs of infection ORTHO: pain on palpation to the ulceration, MSK 5/5 otherwise - Neurological Exam Neurological Exam: Alert, Awake, Oriented x3 - Psychiatric Exam Psychiatric exam: Normal Affect, Normal Mood Assessment and Plan - Assessment and Plan (Free Text) Assessment: 67 M seen for left leg venous stasis ulcer Plan: Patient seen and evaluated Plan discussed with Dr. Montoya No plan for surgical intervention at this time Wound dressed with xeroform, DSD, and light JUANITA compression Podiatry will continue to follow while patient in house
[2018-01-28] MEDS: Promethazine DM 12.5 mg-30 mg/10 ml Syrup PO PRN ×2 (00:27→22:45)
[2018-01-28] MEDS: Sacubitril/Valsartan 24-26mg Tab PO SCH ×2 (09:29→18:08)
[2018-01-28] MEDS: Enoxaparin 40 mg Syringe SC SCH (09:30)
--- NOTE | 2018-01-28 10:17 | PQF ---
PROVIDER RESPONSE TEXT: Acute on Chronic Combined Systolic and Diastolic CHF REVIEWER QUERY TEXT: CHF Acuity and Type Congestive Heart Failure is documented in the Medical Record. Please document the type and acuity (in cludes probable or suspected) Such as: Type: -- Systolic -- Diastolic -- Combined -- Other, please specify Acuity: -- Acute -- Chronic -- Acute on chronic -- Other, please specify Also please document the underlying cause of the CHF (includes probable or suspected) The patient's Clinical Indicators include: Pt. is 67 Y. O. male with Hx. of Acute on Chronic combined Systolic and Diastolic CHF (per Discharge d Summary 12/24/17) Defibrillator, HTN, Chronic Venous stasis ulcers, presents to ER with complaint of SOB. Admitted with Dx. of CHF, Venous stasis CXR Severe Cardiomegaly PBNP- 6490 Echo 07/18/17: LV systolic function is severely impaired. EF 10-20%.Severe Diastolic dysfunction. Tx: Lasix 80 mg IV OD, Entresto 24 mg-26 mg I tab PO BID, Daily wt. monitoring. Query created by: Fe Pham on 01/24/2018 2:29 PM Electronically signed by: Matilde FRANCIS 01/28/2018 10:14 AM
--- NOTE | 2018-01-28 12:26 | CP.PCM.CON ---
History of Present Illness - History of Present Illness History of Present Illness: Surgical consult note for Dr. Long Patient is a 67 year old male with PMHx of venous stasis, CHF requiring defibrillator and pacemaker, HTN, prediabetes who presented to the ED on 01/23/18 with complaints of shortness of breath and cough related to his CHF, and was treated accordingly. Vascular surgery was consulted to evaluate vascular pathology of a poorly healing left lower extremity ulcer. Patient reports in 06/02 he scratched at something on his leg, resulting in an ulcer on his leg which has been slow to heal. Patient follows with podiatry outpatient for wound care. Patient reports pain in LLE since May, difficulty walking due to pain, edema, denies numbness or tingling. PMHx:CHF, HTN, venous stasis, sleep apnea PSHx: appendectomy, hernia, cardiac surgery Allergies: NKDA SocHx: denies Review of Systems - Constitutional Constitutional: Sleep Apnea - EENT Eyes: absent: Blurred Vision - Cardiovascular Cardiovascular: Dyspnea, Edema, Leg Ulcers. absent: Chest Pain - Respiratory Respiratory: Cough, Dyspnea - Gastrointestinal Gastrointestinal: absent: Diarrhea, Nausea - Genitourinary Genitourinary: absent: Difficulty Urinating - Musculoskeletal Additional comments: LLE pain - Integumentary Integumentary: Skin Ulcer Past Patient History - Infectious Disease Hx of Infectious Diseases: None - Past Medical History & Family History Past Medical History?: Yes - Past Social History Smoking Status: Former Smoker - CARDIAC Hx Congestive Heart Failure: Yes Hx Hypercholesterolemia: Yes Hx Hypertension: Yes Hx Pacemaker: Yes - PULMONARY Hx Respiratory Disorders: No - NEUROLOGICAL Hx Neurological Disorder: No - HEENT Hx HEENT Problems: No - RENAL Hx Chronic Kidney Disease: No - ENDOCRINE/METABOLIC Hx Diabetes Mellitus Type 2: Yes - HEMATOLOGICAL/ONCOLOGICAL Hx Blood Disorders: No - INTEGUMENTARY Hx Dermatological Problems: No - MUSCULOSKELETAL/RHEUMATOLOGICAL Hx Arthritis: Yes Hx Falls: No - GASTROINTESTINAL Hx Gastrointestinal Disorders: No - GENITOURINARY/GYNECOLOGICAL Hx Genitourinary Disorders: No - PSYCHIATRIC Hx Substance Use: No - SURGICAL HISTORY Hx Appendectomy: Yes - ANESTHESIA Hx Anesthesia: Yes Hx Anesthesia Reactions: No Hx Malignant Hyperthermia: No Meds Allergies/Adverse Reactions: Allergies Allergy/AdvReac Type Severity Reaction Status Date / Time No Known Allergies Allergy Verified 01/23/18 21:36 - Medications Medications: Current Medications Aspirin (Aspirin Chewable) 81 mg PO DAILY [facility] Last Admin: 01/28/18 09:29 Dose: 81 mg Carvedilol (Coreg) 3.125 mg PO BID [facility] Last Admin: 01/28/18 09:29 Dose: 3.125 mg Enoxaparin Sodium (Lovenox) 40 mg SC DAILY [facility] Last Admin: 01/28/18 09:30 Dose: Not Given Furosemide (Lasix) 80 mg IVP DAILY [facility] Last Admin: 01/28/18 09:29 Dose: 80 mg Promethazine HCl/Dextromethorphan (Phenergan Dm Syrup) 10 ml PO TID PRN PRN Reason: Cough Last Admin: 01/28/18 00:27 Dose: 10 ml Rosuvastatin Calcium (Crestor) 5 mg PO HS [facility] Last Admin: 01/27/18 22:17 Dose: 5 mg Sacubitril/Valsartan (Entresto 24 Mg-26 Mg) 1 tab PO BID [facility] Last Admin: 01/28/18 09:29 Dose: 1 tab Physical Exam - Constitutional Appears: Non-toxic, No Acute Distress - Head Exam Head Exam: ATRAUMATIC, NORMAL INSPECTION, NORMOCEPHALIC - Eye Exam Eye Exam: EOMI, Normal appearance - ENT Exam ENT Exam: Mucous Membranes Moist, Normal Exam - Neck Exam Neck exam: Positive for: Normal Inspection - Respiratory Exam Respiratory Exam: NORMAL BREATHING PATTERN. absent: Respiratory Distress - Cardiovascular Exam Cardiovascular Exam: REGULAR RHYTHM, +S1, +S2 - GI/Abdominal Exam GI & Abdominal Exam: Soft. absent: Tenderness - Extremities Exam Additional comments: LLE distal leg ulcer on lateral surface, approx 4x2cm. Shallow, minimal drainage. Distal LE tender to palpation. No erythema - Neurological Exam Neurological exam: Alert, Oriented x3 - Psychiatric Exam Psychiatric exam: Normal Affect, Normal Mood - Skin Skin Exam: Dry, Warm Results - Vital Signs Recent Vital Signs: Last Vital Signs Temp 97.6 F 01/28/18 07:00 Pulse 73 01/28/18 07:00 Resp 20 01/28/18 07:00 BP 127/71 01/28/18 09:29 Pulse Ox 96 01/28/18 07:00 - Labs Result Diagrams: 01/27/18 11:21 01/27/18 11:21 Labs: Laboratory Results - last 24 hr 01/27/18 01/28/18 01/28/18 16:36 06:45 11:08 POC Glucose (mg/dL) 97 78 134 H Assessment & Plan - Assessment and Plan (Free Text) Assessment: 67 yo with PMHx of CHF, HTN, chronic venous stasis being evaluated for vascular pathology of poorly healing LLE ulcer. Plan: -f/u CTA with ileo-femoral runoff -DVT ppx -wound care -medical management per primary Discussed with Dr. Mercedes Bynmu, PGY-1
--- NOTE | 2018-01-28 12:48 | CP.PCM.PN ---
Subjective - Date & Time of Evaluation Date of Evaluation: 01/28/18 Time of Evaluation: 12:45 - Subjective Subjective: Podiatry Progress Note for Dr. Montoya 67M seen and evaluated at bedside with Dr. Montoya for left lower extremity venous stasis ulceration. Patient is AAO x 3 and NAD, resting comfortably in bed. Denies any acute overnight events or new pedal complaints. States that pain to wound is well controlled and only hurts with palpation. Denies any recent N/V/F/C/CP/SOB/D Objective - Vital Signs/Intake and Output Vital Signs (last 24 hours): Temp Pulse Resp BP Pulse Ox 97.6 F 73 20 127/71 96 01/28/18 07:00 01/28/18 07:00 01/28/18 07:00 01/28/18 09:29 01/28/18 07:00 Intake and Output: 01/28/18 01/28/18 06:59 18:59 Intake Total 240 Output Total 200 Balance 40 - Medications Medications: Current Medications Aspirin (Aspirin Chewable) 81 mg PO DAILY [facility] Last Admin: 01/28/18 09:29 Dose: 81 mg Carvedilol (Coreg) 3.125 mg PO BID [facility] Last Admin: 01/28/18 09:29 Dose: 3.125 mg Enoxaparin Sodium (Lovenox) 40 mg SC DAILY [facility] Last Admin: 01/28/18 09:30 Dose: Not Given Furosemide (Lasix) 80 mg IVP DAILY [facility] Last Admin: 01/28/18 09:29 Dose: 80 mg Promethazine HCl/Dextromethorphan (Phenergan Dm Syrup) 10 ml PO TID PRN PRN Reason: Cough Last Admin: 01/28/18 00:27 Dose: 10 ml Rosuvastatin Calcium (Crestor) 5 mg PO HS [facility] Last Admin: 01/27/18 22:17 Dose: 5 mg Sacubitril/Valsartan (Entresto 24 Mg-26 Mg) 1 tab PO BID [facility] Last Admin: 01/28/18 09:29 Dose: 1 tab - Labs Labs: 01/27/18 11:21 01/27/18 11:21 PT 15.9 SECONDS (9.7-12.2) H 01/23/18 22:28 INR 1.5 01/23/18 22:28 APTT 36 SECONDS (21-34) H 01/23/18 22:28 - Constitutional Appears: Well, Non-toxic, No Acute Distress - Extremities Exam Additional comments: LLE focused exam: VASC: DP and PT 1/4 palpable, CFT less than 3 seconds, TG warm to warm within normal limits, no edema noted NEURO: Epicritic and protective sensation grossly intact DERM: 4 cm X 2 cm X 0.2 cm superficial venous stasis ulcer noted to the lateral aspect of the left leg, surrounding hyperpigmentation noted, no active drainage, no malodor, no probe to bone, no other wounds noted, no clinical signs of infection ORTHO: pain on palpation to the ulceration, MSK 5/5 otherwise - Neurological Exam Neurological Exam: Alert, Awake, Oriented x3 - Psychiatric Exam Psychiatric exam: Normal Affect, Normal Mood Assessment and Plan - Assessment and Plan (Free Text) Assessment: 67M seen and evaluated at bedside with Dr. Montoya for left lower extremity venous stasis ulceration Plan: Patient seen and evaluated with Dr. Montoya Afebrile Vascular consult placed Patient allowed to shower and clean wound Nursing order placed to dress wound with betadine, gauze, kirlix, JUANITA No plan for surgical intervention at this time Podiatry will continue to follow while patient in house
--- NOTE | 2018-01-28 16:16 | CP.PCM.PN ---
Subjective - Date & Time of Evaluation Date of Evaluation: 01/28/18 Time of Evaluation: 10:15 - Subjective Subjective: clinically same Objective - Vital Signs/Intake and Output Vital Signs (last 24 hours): Temp Pulse Resp BP Pulse Ox 97.5 F L 97 H 20 120/68 97 01/28/18 15:30 01/28/18 15:30 01/28/18 15:30 01/28/18 15:30 01/28/18 15:30 Intake and Output: 01/28/18 01/28/18 06:59 18:59 Intake Total 240 Output Total 200 Balance 40 - Medications Medications: Current Medications Aspirin (Aspirin Chewable) 81 mg PO DAILY [facility] Last Admin: 01/28/18 09:29 Dose: 81 mg Carvedilol (Coreg) 3.125 mg PO BID [facility] Last Admin: 01/28/18 09:29 Dose: 3.125 mg Enoxaparin Sodium (Lovenox) 40 mg SC DAILY [facility] Last Admin: 01/28/18 09:30 Dose: Not Given Furosemide (Lasix) 80 mg IVP DAILY [facility] Last Admin: 01/28/18 09:29 Dose: 80 mg Promethazine HCl/Dextromethorphan (Phenergan Dm Syrup) 10 ml PO TID PRN PRN Reason: Cough Last Admin: 01/28/18 00:27 Dose: 10 ml Rosuvastatin Calcium (Crestor) 5 mg PO HS [facility] Last Admin: 01/27/18 22:17 Dose: 5 mg Sacubitril/Valsartan (Entresto 24 Mg-26 Mg) 1 tab PO BID [facility] Last Admin: 01/28/18 09:29 Dose: 1 tab - Labs Labs: 01/27/18 11:21 01/27/18 11:21 PT 15.9 SECONDS (9.7-12.2) H 01/23/18 22:28 INR 1.5 01/23/18 22:28 APTT 36 SECONDS (21-34) H 01/23/18 22:28 - Constitutional Appears: Well - Head Exam Head Exam: ATRAUMATIC, NORMAL INSPECTION, NORMOCEPHALIC - Eye Exam Eye Exam: EOMI, Normal appearance, PERRL Pupil Exam: NORMAL ACCOMODATION, PERRL - ENT Exam ENT Exam: Mucous Membranes Moist, Normal Exam - Neck Exam Neck Exam: Full ROM, Normal Inspection. 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
[2018-01-28 22:50] VITALS: RESP 20
[2018-01-29] MEDS: Sacubitril/Valsartan 24-26mg Tab PO SCH ×2 (07:56→22:06)
[2018-01-29] MEDS ORDERED: Iodixanol 320 mg/ml 150 ml Bottle IV ONE (09:52)
[2018-01-29] MEDS: Promethazine DM 12.5 mg-30 mg/10 ml Syrup PO PRN ×2 (10:15→22:07)
[2018-01-29] MEDS: Enoxaparin 40 mg Syringe SC SCH ×2 (10:17→10:19)
--- NOTE | 2018-01-29 15:00 | CP.PCM.PN ---
Subjective - Date & Time of Evaluation Date of Evaluation: 01/29/18 Time of Evaluation: 10:15 - Subjective Subjective: clinically same Objective - Vital Signs/Intake and Output Vital Signs (last 24 hours): Temp Pulse Resp BP Pulse Ox 97.4 F L 77 20 106/55 L 95 01/29/18 08:28 01/29/18 11:54 01/29/18 08:28 01/29/18 10:17 01/29/18 08:28 Intake and Output: 01/29/18 01/29/18 06:59 18:59 Intake Total 210 400 Output Total 400 Balance -190 400 - Medications Medications: Current Medications Aspirin (Aspirin Chewable) 81 mg PO DAILY [facility] Last Admin: 01/29/18 10:18 Dose: 81 mg Carvedilol (Coreg) 3.125 mg PO BID [facility] Last Admin: 01/29/18 10:18 Dose: Not Given Enoxaparin Sodium (Lovenox) 40 mg SC DAILY [facility] Last Admin: 01/29/18 10:19 Dose: Not Given Furosemide (Lasix) 80 mg IVP DAILY [facility] Last Admin: 01/29/18 10:17 Dose: Not Given Promethazine HCl/Dextromethorphan (Phenergan Dm Syrup) 10 ml PO TID PRN PRN Reason: Cough Last Admin: 01/29/18 10:15 Dose: 10 ml Rosuvastatin Calcium (Crestor) 5 mg PO HS [facility] Last Admin: 01/28/18 22:45 Dose: 5 mg Sacubitril/Valsartan (Entresto 24 Mg-26 Mg) 1 tab PO 799,1999 [facility] Last Admin: 01/29/18 07:56 Dose: Not Given - Labs Labs: 01/27/18 11:21 01/27/18 11:21 PT 15.9 SECONDS (9.7-12.2) H 01/23/18 22:28 INR 1.5 01/23/18 22:28 APTT 36 SECONDS (21-34) H 01/23/18 22:28 - Constitutional Appears: Well - Head Exam Head Exam: ATRAUMATIC, NORMAL INSPECTION, NORMOCEPHALIC - Eye Exam Eye Exam: EOMI, Normal appearance, PERRL Pupil Exam: NORMAL ACCOMODATION, PERRL - ENT Exam ENT Exam: Mucous Membranes Moist, Normal Exam - Neck Exam Neck Exam: Full ROM, Normal Inspection. absent: Lymphadenopathy - Respiratory Exam Respiratory Exam: Decreased Breath Sounds - Cardiovascular Exam Cardiovascular Exam: REGULAR RHYTHM, +S1, +S2 - GI/Abdominal Exam GI & Abdominal Exam: Soft, Diminished Bowel Sounds - Rectal Exam Rectal Exam: Deferred
--- NOTE | 2018-01-29 15:45 | CT ---
Date of service: 01/29/2018 PROCEDURE: CT Angiography Abdomen, Pelvis and Lower Extremity with Contrast HISTORY: LLE ulcer COMPARISON: None available. TECHNIQUE: Technique: CT angiography of the abdomen, pelvis and bilateral lower extremities performed in the arterial phase of enhancement. Coronal and sagittal reformats, and well as rotating MIP images of the vessels generated at the workstation. Intravenous contrast dose: 150 milliliters Visipaque 320 Radiation dose: Total exam DLP = 3266.7 mGy-cm. This CT exam was performed using one or more of the following dose reduction techniques: Automated exposure control, adjustment of the mA and/or kV according to patient size, and/or use of iterative reconstruction technique. FINDINGS: CT ANGIOGRAPHY: ABDOMINAL AORTA:: MAJOR AORTIC BRANCHES: Celiac [place]mith: Unremarkable. Superior mesenteric artery: Unremarkable. Inferior mesenteric artery: Unremarkable. Renal arteries: Unremarkable. PELVIC ARTERIES: Right Common Iliac: Unremarkable. Right External Iliac: Unremarkable. Right Internal Iliac: Unremarkable. Left Common Iliac: Unremarkable. Left External Iliac: Unremarkable. Left Internal Iliac: Unremarkable. RIGHT LOWER EXTREMITY ARTERIES: Right Common Femoral: Unremarkable. Right Superficial Femoral: Mild calcific plaque in the SFA without significant stenosis. Right Profunda Femoris: Unremarkable. Right Popliteal:Unremarkable. Right Anterior Tibial: Moderate plaque in the anterior tibial artery with areas of mild stenosis in the proximal segment. Right Tibioperoneal Trunk: Calcific plaque of the tibioperoneal artery with moderate stenosis.. Right Posterior Tibial: Unremarkable. Right Peroneal: Mild calcific plaque in the proximal peroneal artery without significant stenosis.. Right dorsalis pedis : Unremarkable. LEFT LOWER EXTREMITY ARTERIES: Left Common Femoral: Unremarkable. Left Superficial Femoral: Moderate calcific plaque in the SFA without significant stenosis. Left Profunda Femoris: Unremarkable. Left Popliteal: No significant stenosis. Left Anterior Tibial: Moderate to severe calcific plaque in the proximal anterior tibial artery with area of [id number] stenosis of proximal segment. Left Tibioperoneal Trunk: Unremarkable. Left Posterior Tibial: Posterior tibial artery occludes in the proximal segment with no reconstitution. Lateral plantar fills via the peroneal artery. Left Peroneal: Moderate calcific plaque in the proximal segment but is otherwise patent. Left Dorsalis pedis: Unremarkable. NON-ANGIOGRAPHIC ASPECT OF THE EXAM: LOWER THORAX: Unremarkable. LIVER: Unremarkable. No gross lesion or ductal dilatation. GALLBLADDER AND BILE DUCTS: Unremarkable. PANCREAS: Unremarkable. No gross lesion or ductal dilatation. SPLEEN: Unremarkable. ADRENALS: Unremarkable. No mass. KIDNEYS AND URETERS: Unremarkable. No hydronephrosis. No solid mass. STOMACH AND BOWEL: Unremarkable. No obstruction. No gross mural thickening. APPENDIX: Normal appendix. PERITONEUM: Unremarkable. No free fluid. No free air. LYMPH NODES: Unremarkable. No enlarged lymph nodes. BLADDER: Unremarkable. REPRODUCTIVE: Unremarkable. BONES: No acute fracture. OTHER FINDINGS: Pelvic varices IMPRESSION: CT ANGIOGRAM ABDOMEN/PELVIS: Essentially unremarkable CT angiogram of and pelvis. LEFT LOWER EXTREMITY CT ANGIOGRAM: 1. The common femoral artery and profunda femoral are unremarkable. 2. There is moderate calcific plaque in the SFA without significant stenosis. 3. There is moderate plaque in the popliteal artery without significant stenosis.. 4. Runoff shows moderate plaque in the tibioperoneal artery moderate stenosis. The anterior tibial artery has multiple areas of moderate calcific plaque with moderate stenosis throughout. The peroneal artery also has moderate calcific plaque with multiple areas of [id number] stenosis. 5. Posterior tibial artery is occluded. RIGHT LOWER EXTREMITY CT ANGIOGRAM: 1. No common femoral artery and profunda femoral artery are normal. 2. There is moderate calcific plaque in the SFA without significant stenosis. 3. There is moderate plaque in the popliteal artery without significant stenosis. 4. Runoff shows moderate plaque in the anterior tibial artery with mild stenosis in the proximal segment. The peroneal and posterior tibial artery are unremarkable.
[2018-01-30] MEDS: Promethazine DM 12.5 mg-30 mg/10 ml Syrup PO PRN (06:04)
[2018-01-30 09:09] VITALS: TEMP 98; O2SAT 97
[2018-01-30] MEDS: Sacubitril/Valsartan 24-26mg Tab PO SCH (09:37)
[2018-01-30 09:38] VITALS: BP 137/80
[2018-01-30] MEDS: Enoxaparin 40 mg Syringe SC SCH (09:41)
--- NOTE | 2018-01-30 10:46 | CP.PCM.PN ---
Subjective - Date & Time of Evaluation Date of Evaluation: 01/30/18 Time of Evaluation: 07:30 - Subjective Subjective: Pt seen and examined at bedside this AM no adverse events overnight. Patient states his legs are still swollen but did not complain of pain Objective - Vital Signs/Intake and Output Vital Signs (last 24 hours): Temp Pulse Resp BP Pulse Ox 98.0 F 87 20 137/80 97 01/30/18 08:00 01/30/18 08:00 01/30/18 08:00 01/30/18 09:37 01/30/18 08:00 Intake and Output: 01/30/18 01/30/18 06:59 18:59 Intake Total 240 Output Total 500 Balance -260 - Medications Medications: Current Medications Aspirin (Aspirin Chewable) 81 mg PO DAILY [facility] Last Admin: 01/30/18 09:36 Dose: 81 mg Carvedilol (Coreg) 3.125 mg PO BID [facility] Last Admin: 01/30/18 09:37 Dose: 3.125 mg Enoxaparin Sodium (Lovenox) 40 mg SC DAILY [facility] Last Admin: 01/30/18 09:41 Dose: Not Given Furosemide (Lasix) 80 mg IVP DAILY [facility] Last Admin: 01/30/18 09:37 Dose: 80 mg Promethazine HCl/Dextromethorphan (Phenergan Dm Syrup) 10 ml PO TID PRN PRN Reason: Cough Last Admin: 01/30/18 06:04 Dose: 10 ml Rosuvastatin Calcium (Crestor) 5 mg PO HS [facility] Last Admin: 01/29/18 22:06 Dose: 5 mg Sacubitril/Valsartan (Entresto 24 Mg-26 Mg) 1 tab PO 799,1999 [facility] Last Admin: 01/30/18 09:37 Dose: 1 tab - Labs Labs: 01/27/18 11:21 01/27/18 11:21 PT 15.9 SECONDS (9.7-12.2) H 01/23/18 22:28 INR 1.5 01/23/18 22:28 APTT 36 SECONDS (21-34) H 01/23/18 22:28 - Constitutional Appears: Well, Non-toxic, No Acute Distress - Head Exam Head Exam: ATRAUMATIC, NORMOCEPHALIC - Eye Exam Eye Exam: Normal appearance. absent: Conjunctival injection, Scleral icterus - ENT Exam ENT Exam: Mucous Membranes Moist, Normal Oropharynx - Respiratory Exam Respiratory Exam: NORMAL BREATHING PATTERN. absent: Accessory Muscle Use, Respiratory Distress - Cardiovascular Exam Cardiovascular Exam: RRR - GI/Abdominal Exam GI & Abdominal Exam: Soft. absent: Distended - Extremities Exam Additional comments: BL lower leg redness, 1+ pitting edema, moderate redness, no tenderness to palpation, no fluctuance, feet warm with good capillary refill BL - Neurological Exam Neurological Exam: Alert, Awake, Oriented x3 - Psychiatric Exam Psychiatric exam: Normal Affect, Normal Mood - Skin Skin Exam: Dry, Warm Assessment and Plan - Assessment and Plan (Free Text) Assessment: 67M with BL lower leg edema Plan: No surgical intervention indicated at this time--clinical findings unlikely d/t infection, no vascular insufficiency evident Continue medical management Elevate the extremities AE hose Encourage physical activity Contact surgery team for any further questions or concerns Discussed with Dr. Mercedes Meyer, PGY2
[2018-01-30 12:56] VITALS: PULSE 74
--- NOTE | 2018-01-30 13:14 | CP.PCM.PN ---
Subjective - Date & Time of Evaluation Date of Evaluation: 01/30/18 Time of Evaluation: 12:00 - Subjective Subjective: Patient seen today, states sob and leg edema improved Objective - Vital Signs/Intake and Output Vital Signs (last 24 hours): Temp Pulse Resp BP Pulse Ox 98.0 F 74 20 137/80 97 01/30/18 08:00 01/30/18 12:00 01/30/18 08:00 01/30/18 09:37 01/30/18 08:00 Intake and Output: 01/30/18 01/30/18 06:59 18:59 Intake Total 240 Output Total 500 Balance -260 - Medications Medications: Current Medications Aspirin (Aspirin Chewable) 81 mg PO DAILY [facility] Last Admin: 01/30/18 09:36 Dose: 81 mg Carvedilol (Coreg) 3.125 mg PO BID [facility] Last Admin: 01/30/18 09:37 Dose: 3.125 mg Enoxaparin Sodium (Lovenox) 40 mg SC DAILY [facility] Last Admin: 01/30/18 09:41 Dose: Not Given Furosemide (Lasix) 80 mg IVP DAILY [facility] Last Admin: 01/30/18 09:37 Dose: 80 mg Promethazine HCl/Dextromethorphan (Phenergan Dm Syrup) 10 ml PO TID PRN PRN Reason: Cough Last Admin: 01/30/18 06:04 Dose: 10 ml Rosuvastatin Calcium (Crestor) 5 mg PO HS [facility] Last Admin: 01/29/18 22:06 Dose: 5 mg Sacubitril/Valsartan (Entresto 24 Mg-26 Mg) 1 tab PO 799,1999 [facility] Last Admin: 01/30/18 09:37 Dose: 1 tab - Labs Labs: 01/27/18 11:21 01/27/18 11:21 PT 15.9 SECONDS (9.7-12.2) H 01/23/18 22:28 INR 1.5 01/23/18 22:28 APTT 36 SECONDS (21-34) H 01/23/18 22:28
--- NOTE | 2018-01-30 13:45 | CP.PCM.PN ---
Subjective - Date & Time of Evaluation Date of Evaluation: 01/30/18 Time of Evaluation: 13:42 - Subjective Subjective: Podiatry Progress Note for Dr. Montoya 67M seen and evaluated at bedside with Dr. Montoya for left lower extremity venous stasis ulceration. Patient is AAO x 3 and NAD, resting comfortably in bed. States that he has still not been able to take a shower. Denies any acute overnight events or new pedal complaints. States that pain is well controlled. Denies any recent N/V/F/C/CP/SOB/D Objective - Vital Signs/Intake and Output Vital Signs (last 24 hours): Temp Pulse Resp BP Pulse Ox 98.0 F 74 20 137/80 97 01/30/18 08:00 01/30/18 12:00 01/30/18 08:00 01/30/18 09:37 01/30/18 08:00 Intake and Output: 01/30/18 01/30/18 06:59 18:59 Intake Total 240 Output Total 500 Balance -260 - Medications Medications: Current Medications Aspirin (Aspirin Chewable) 81 mg PO DAILY [facility] Last Admin: 01/30/18 09:36 Dose: 81 mg Carvedilol (Coreg) 3.125 mg PO BID [facility] Last Admin: 01/30/18 09:37 Dose: 3.125 mg Enoxaparin Sodium (Lovenox) 40 mg SC DAILY [facility] Last Admin: 01/30/18 09:41 Dose: Not Given Furosemide (Lasix) 80 mg IVP DAILY [facility] Last Admin: 01/30/18 09:37 Dose: 80 mg Promethazine HCl/Dextromethorphan (Phenergan Dm Syrup) 10 ml PO TID PRN PRN Reason: Cough Last Admin: 01/30/18 06:04 Dose: 10 ml Rosuvastatin Calcium (Crestor) 5 mg PO HS [facility] Last Admin: 01/29/18 22:06 Dose: 5 mg Sacubitril/Valsartan (Entresto 24 Mg-26 Mg) 1 tab PO 0800,1999 [facility] Last Admin: 01/30/18 09:37 Dose: 1 tab - Labs Labs: 01/27/18 11:21 01/27/18 11:21 PT 15.9 SECONDS (9.7-12.2) H 01/23/18 22:28 INR 1.5 01/23/18 22:28 APTT 36 SECONDS (21-34) H 01/23/18 22:28 - Constitutional Appears: Well, Non-toxic, No Acute Distress - Extremities Exam Additional comments: LLE focused exam: VASC: DP and PT 1/4 palpable, CFT less than 3 seconds, TG warm to warm within normal limits, no edema noted NEURO: Epicritic and protective sensation grossly intact DERM: 4 cm X 2 cm X 0.2 cm superficial venous stasis ulcer noted to the lateral aspect of the left leg, surrounding hyperpigmentation noted, no active drainage, no malodor, no probe to bone, no other wounds noted, no clinical signs of infection ORTHO: pain on palpation to the ulceration, MSK 5/5 otherwise - Neurological Exam Neurological Exam: Alert, Awake, Oriented x3 - Psychiatric Exam Psychiatric exam: Normal Affect, Normal Mood Assessment and Plan - Assessment and Plan (Free Text) Assessment: 67M seen and evaluated at bedside with Dr. Montoya for left lower extremity venous stasis ulceration Plan: Patient seen and evaluated with Dr. Montoya Afebrile Abd Ang: LEFT LOWER EXTREMITY CT ANGIOGRAM: 1. The common femoral artery and profunda femoral are unremarkable. 2. There is moderate calcific plaque in the SFA without significant stenosis. 3. There is moderate plaque in the popliteal artery without significant stenosis.. 4. Runoff shows moderate plaque in the tibioperoneal artery moderate stenosis. The anterior tibial artery has multiple areas of moderate calcific plaque with moderate stenosis throughout. The peroneal artery also has moderate calcific plaque with multiple areas of [id number] stenosis. 5. Posterior tibial artery is occluded. RIGHT LOWER EXTREMITY CT ANGIOGRAM: 1. No common femoral artery and profunda femoral artery are normal. 2. There is moderate calcific plaque in the SFA without significant stenosis. 3. There is moderate plaque in the popliteal artery without significant stenosis. 4. Runoff shows moderate plaque in the anterior tibial artery with mild steno sis in the proximal segment. The peroneal and posterior tibial artery are unremarkable. Patient allowed to shower and clean wound Wound dressed with betadine, DSD No plan for surgical intervention at this time Podiatry will continue to follow while patient in house
--- NOTE | 2018-01-30 17:43 | CARD ---
APPROVED REPORT Date of service: 01/24/2018 EKG Measurement Heart [id number] <Conclusion> Poor data quality, interpretation may be adversely affected Ventricular-paced rhythm Abnormal ECG
== END 2018-01-30 15:17 | disposition home or self-care (01) | DRG 292 ==
LOC: C.ER 21:25 → C.9E 23:03 → C.6T 01-24 07:46
PROVIDERS: ADMIT Internal Medicine Nephrology; ATTEND Internal Medicine Nephrology
DX: I11.0 Hypertensive heart disease with heart failure (principal); I50.43 Acute on chronic combined systolic (congestive) and diastolic (congestive) heart failure; I87.2 Venous insufficiency (chronic) (peripheral); L97.929 Non-pressure chronic ulcer of unspecified part of left lower leg with unspecified severity; J90 Pleural effusion, not elsewhere classified; E11.622 Type 2 diabetes mellitus with other skin ulcer; I42.0 Dilated cardiomyopathy; J40 Bronchitis, not specified as acute or chronic; G47.30 Sleep apnea, unspecified; K74.60 Unspecified cirrhosis of liver; E78.00 Pure hypercholesterolemia, unspecified; Z95.810 Presence of automatic (implantable) cardiac defibrillator; Z87.891 Personal history of nicotine dependence; Z90.49 Acquired absence of other specified parts of digestive tract

== ENCOUNTER 2018-04-15 16:15 | Emergency (ER) | payer MEDICARE, BC ==
[2018-04-15 16:30] VITALS: BMI 31.1
--- NOTE | 2018-04-15 16:38 | C.PDOC ---
History Of Present Illness 68 year old male, whose past medical history includes CHF, DM, HTN, Hyperlipidemia, appendectomy, pacemaker and varicose veins, presents to the ED for evaluation of bleeding to right lower extremity varicose veins which began around one hour prior to arrival. Patient states she was picking at the area and presents to the ED for evaluation of continued bleeding. He denies chest pain, shortness of breath, injury/trauma to the area, extremity numbness/weakness. Time Seen by Provider: 04/15/18 16:38 Chief Complaint (Nursing): Abnormal Skin Integrity History Per: Patient History/Exam Limitations: no limitations Onset/Duration Of Symptoms: Hrs Current Symptoms Are (Timing): Still Present Additional History Per: Patient Past Medical History Reviewed: Historical Data, Nursing Documentation, Vital Signs Vital Signs: Last Vital Signs Temp 97.5 F L 04/15/18 16:31 Pulse 78 04/15/18 16:31 Resp 18 04/15/18 16:31 BP 115/88 04/15/18 16:31 Pulse Ox 98 04/15/18 16:31 - Medical History PMH: Arthritis, CHF, Diabetes, HTN, Hypercholesterolemia Denies: Chronic Kidney Disease Surgical History: Appendectomy, Pacemaker - [facility] ASSISTANCE WITH RESPIRATORY VENTILATION, 24-96 HRS, CPAP (01/21/17) DRAINAGE OF LEFT PLEURAL CAVITY, PERCUTANEOUS APPROACH (02/02/17) DRAINAGE OF PERITONEAL CAVITY, PERCUTANEOUS APPROACH (03/05/17) DRAINAGE OF PERITONEAL CAVITY, PERCUTANEOUS APPROACH, DIAGN (04/26/16) DRAINAGE OF RIGHT PLEURAL CAVITY, PERCUTANEOUS APPROACH (03/05/17) EXCISION OF STOMACH, ENDO, DIAGN (11/03/16) EXTRACTION OF RIGHT FOOT SKIN, EXTERNAL APPROACH (08/29/17) FLUOROSCOPY OF SUP VENA CAVA USING L OSM CONTRAST, GUIDANCE (03/05/17) INSERTION OF INFUSION DEV INTO SUP VENA CAVA, PERC APPROACH (03/05/17) INSPECTION OF LOWER INTESTINAL TRACT, ENDO (11/03/16) TRANSFUSE NONAUT RED BLOOD CELLS IN PERIPH VEIN, PERC (01/21/17) ULTRASONOGRAPHY OF SUPERIOR VENA CAVA, GUIDANCE (03/05/17) Family History: States: Unknown Family Hx - Social History Hx Tobacco Use: No Hx Alcohol Use: Yes (3 glasses of wine past 3 weeks ago.) Hx Substance Use: No - Immunization History Hx Tetanus Toxoid Vaccination: No Hx Influenza Vaccination: Yes Hx Pneumococcal Vaccination: Yes Review Of Systems Cardiovascular: Negative for: Chest Pain Respiratory: Negative for: Shortness of Breath Skin: Positive for: Other (bleeding varicose vein in right lower extremity ) Neurological: Negative for: Weakness, Numbness Physical Exam - Physical Exam Appears: Well, No Acute Distress Skin: Normal Color, Warm, Dry Eye(s): bilateral: Normal Inspection, PERRL, EOMI Nose: Normal Throat: Normal Neck: Normal, Normal ROM, Supple, Other (no meningeal signs) Cardiovascular: Rhythm Regular Respiratory: Normal Breath Sounds Gastrointestinal/Abdominal: Normal Exam Back: Normal Inspection Extremity: Normal ROM, Other (RLE lateral surface <1mm lesion over varicose vein, bleeding well controlled. ) ED Course And Treatment - Laboratory Results Result Diagrams: 04/15/18 17:36 04/15/18 17:36 O2 Sat by Pulse Oximetry: 98 (on RA) Pulse Ox Interpretation: Normal Medical Decision Making Medical Decision Makin yr old male w/ hx of CHF, varicose veins p/w RLE varicose vein bleeding. Stopped after pressure. Surgicell dressing placed with recurrent good hemostasis in ED. Will likely seek labs. N.V intact in both b/l 1919 Labs reviewed: HGB 8.7, bleeding well controlled. appreciate consult w/ Lindsay: alayna for d/c home informed pt to [facility] with Dr. Lindsay SPEAR. He is agreable to plan given return indications and care instructions Disposition - Disposition Referrals: Camilo Montoya DPM [Staff Provider] - Disposition: HOME/ ROUTINE Disposition Time: 20:01 Condition: GOOD Additional Instructions: See Dr. Montoya On saturday. RETURN IF IT KEEPS BLEEDING. TAKE THE ANTIBIOTICS WE HAVE GIVEN YOU, UNLESS YOU HAVE ALLERGY OR ABNORMAL SIDE EFFECTS. Prescriptions: Cephalexin [Keflex] 250 mg PO Q6H 3 Days #12 capsule Instructions: Treatment of Varicose Veins of the Leg, Varicose Veins (DC) Forms: [facility] (Chinese) - Clinical Impression Clinical Impression: Varicose vein of leg - Scribe Statement The provider has reviewed the documentation as recorded by the Scribe (Sola Mahajan) Provider Attestation: All medical record entries made by the Scribe were at my direction and personally dictated by me. I have reviewed the chart and agree that the record accurately reflects my personal performance of the history, physical exam, medical decision making, and the department course for this patient. I have also personally directed, reviewed, and agree with the discharge instructions and disposition.
[2018-04-15 17:43] LABS: BASO % 0.4 % (0.0-2.0); EOS # 0.1 K/uL (0.0-0.7); EOS % 1.1 % (0.0-4.0); HEMOGLOBIN 8.7 g/dL (12.0-18.0); LYMPH # 1.1 K/uL (1.0-4.3); LYMPH % 18.5 % (20.0-40.0); MEAN CELL VOLUME 86.9 fL (80.0-94.0); MEAN CORPUSCULAR HEMOGLOBIN 26.5 pg (27.0-31.0); MEAN CORPUSCULAR HGB CONC 30.5 g/dL (33.0-37.0); MEAN PLATELET VOLUME 7.1 fL (7.2-11.7); MONO # 1.1 K/uL (0.0-0.8); MONO % 18.2 % (0.0-10.0); NEUT # 3.7 K/uL (1.8-7.0); NEUT % 61.8 % (50.0-75.0); NRBC % 0.2 % (0.0-2.0); RBC 3.28 Mil/uL (4.40-5.90); RED CELL DISTRIBUTION WIDTH 21.8 % (11.5-14.5)
[2018-04-15 17:55] LABS: ALBUMIN 3.9 g/dL (3.5-5.0); ALT/SGPT 16 U/L (21-72); AST/SGOT 29 U/L (17-59); BLOOD UREA NITROGEN 25 mg/dL (9-20); CALCIUM 8.3 mg/dl (8.6-10.4); GFR NON-AFRICAN AMERICAN > 60; INR 1.7; PROTHROMBIN TIME 18.3 SECONDS (9.7-12.2)
[2018-04-15 20:32] VITALS: BP 111/85; PULSE 75; RESP 17; TEMP 98.1
[2018-04-16 00:37] VITALS: O2SAT 98
== END 2018-04-15 20:31 | disposition home or self-care (01) ==
LOC: C.ER 16:15
DX: I83.91 Asymptomatic varicose veins of right lower extremity (principal); I11.0 Hypertensive heart disease with heart failure; I50.9 Heart failure, unspecified; E11.9 Type 2 diabetes mellitus without complications; E78.00 Pure hypercholesterolemia, unspecified; Z87.891 Personal history of nicotine dependence

== ENCOUNTER 2018-05-22 13:07 | Inpatient (IN) | payer MEDICARE, BC ==
[2018-05-22 13:08] VITALS: BMI 31.1
[2018-05-22 14:23] LABS: INR 1.4; PROTHROMBIN TIME 15.6 SECONDS (9.7-12.2)
[2018-05-22 14:26] LABS: BASO # 0.1 K/uL (0.0-0.2); BASO % 0.9 % (0.0-2.0); EOS # 0.1 K/uL (0.0-0.7); HEMOGLOBIN 8.4 g/dL (12.0-18.0); LYMPH % 13.6 % (20.0-40.0); MEAN CORPUSCULAR HEMOGLOBIN 24.5 pg (27.0-31.0); MEAN CORPUSCULAR HGB CONC 30.5 g/dL (33.0-37.0); MEAN PLATELET VOLUME 8.1 fL (7.2-11.7); MONO # 1.2 K/uL (0.0-0.8); MONO % 16.3 % (0.0-10.0); NEUT % 68.2 % (50.0-75.0); NRBC % 0.2 % (0.0-2.0); RBC 3.45 Mil/uL (4.40-5.90); RED CELL DISTRIBUTION WIDTH 20.8 % (11.5-14.5); WHITE BLOOD COUNT 7.4 K/uL (4.8-10.8)
[2018-05-22 14:27] LABS: MEAN CELL VOLUME 80.3 fL (80.0-94.0)
[2018-05-22 14:36] LABS: ALBUMIN 4.3 g/dL (3.5-5.0); ALT/SGPT 14 U/L (21-72); AST/SGOT 32 U/L (17-59); BLOOD UREA NITROGEN 32 mg/dL (9-20); CALCIUM 8.4 mg/dl (8.6-10.4); GFR NON-AFRICAN AMERICAN 55
[2018-05-22 14:42] LABS: B-TYPE NATRIURETIC PEPTIDE 7360 pg/mL (0-900)
--- NOTE | 2018-05-22 15:00 | C.PDOC ---
History Of Present Illness 68 y/o male with a PMHx of CHF, HTN, COPD, prediabetes, presents to the ED with complaints of worsening SOB over the last 4 weeks. He was recently admitted at a hospital in the [place] for the same, and had his medications adjusted, including Lasix. Patient additionally reports difficulty with urinating. States it is sometimes difficult to get the stream out. Because of that, patient has been hesitant to take the Lasix. He denies chest pain or palpitations. Patient does have a nonproductive cough. Denies fever. He is also complaining of testicular/groin swelling, ongoing for over 4 weeks. He denies any dysuria, nausea, vomiting, diarrhea, or constipation. PMD- Dr. Mariluz Mahajan Time Seen by Provider: 05/22/18 13:43 Chief Complaint (Nursing): Shortness Of Breath History Per: Patient History/Exam Limitations: no limitations Onset/Duration Of Symptoms: Days Current Symptoms Are (Timing): Still Present Exacerbating Factor(s): Laying Flat Associated Symptoms: Ankle/Leg Swelling Reports Recently: Hospitalized Past Medical History Reviewed: Historical Data, Nursing Documentation, Vital Signs Vital Signs: Last Vital Signs Temp 97.6 F 05/22/18 13:32 Pulse 87 05/22/18 14:53 Resp 28 H 05/22/18 14:53 BP 147/75 05/22/18 14:53 Pulse Ox 96 05/22/18 14:53 - Medical History PMH: Arthritis, CHF, Diabetes, HTN, Hypercholesterolemia Denies: Chronic Kidney Disease Surgical History: Appendectomy, Pacemaker - [facility] Procedures ASSISTANCE WITH RESPIRATORY VENTILATION, 24-96 HRS, CPAP (01/21/17) DRAINAGE OF LEFT PLEURAL CAVITY, PERCUTANEOUS APPROACH (02/02/17) DRAINAGE OF PERITONEAL CAVITY, PERCUTANEOUS APPROACH (03/05/17) DRAINAGE OF PERITONEAL CAVITY, PERCUTANEOUS APPROACH, DIAGN (04/26/16) DRAINAGE OF RIGHT PLEURAL CAVITY, PERCUTANEOUS APPROACH (03/05/17) EXCISION OF STOMACH, ENDO, DIAGN (11/03/16) EXTRACTION OF RIGHT FOOT SKIN, EXTERNAL APPROACH (08/29/17) FLUOROSCOPY OF SUP VENA CAVA USING L OSM CONTRAST, GUIDANCE (03/05/17) INSERTION OF INFUSION DEV INTO SUP VENA CAVA, PERC APPROACH (03/05/17) INSPECTION OF LOWER INTESTINAL TRACT, ENDO (11/03/16) TRANSFUSE NONAUT RED BLOOD CELLS IN PERIPH VEIN, PERC (01/21/17) ULTRASONOGRAPHY OF SUPERIOR VENA CAVA, GUIDANCE (03/05/17) Family History: States: Unknown Family Hx - Social History Hx Tobacco Use: No Hx Alcohol Use: Yes (3 glasses of wine past 3 weeks ago.) Hx Substance Use: No - Immunization History Hx Tetanus Toxoid Vaccination: No Hx Influenza Vaccination: Yes Hx Pneumococcal Vaccination: Yes Review Of Systems Except As Marked, All Systems Reviewed And Found Negative. Constitutional: Negative for: Fever Cardiovascular: Negative for: Chest Pain, Palpitations Respiratory: Positive for: Cough, Shortness of Breath. Negative for: Sputum Gastrointestinal: Negative for: Nausea, Vomiting, Diarrhea, Constipation Genitourinary: Positive for: Other (Urinary urgency, Testicular/Groin swelling). Negative for: Dysuria Musculoskeletal: Positive for: Leg Pain Skin: Positive for: Other (ulcer to LLE) Neurological: Negative for: Weakness, Numbness Physical Exam - Physical Exam Appears: No Acute Distress, Chronically Ill, Other (Obese male) Skin: Normal Color, Warm, No Rash Head: Atraumatic, Normacephalic Eye(s): bilateral: Normal Inspection, PERRL, EOMI Oral Mucosa: Moist Neck: Normal ROM Chest: Symmetrical Cardiovascular: Murmur (4/6 holosystolic murmur) Respiratory: No Accessory Muscle Use, Rales (Rales at the bases bilaterally), Wheezing (mild wheezing diffusely) Gastrointestinal/Abdominal: Soft, Distention (Abdomen is slightly distended), Other (Large midline surgical scar, Inferior abdomen w/ hard scar tissue) Back: No CVA Tenderness Male Genital: Testicular Swelling (Swelling of the testicles and penis, mild to moderate) Extremity: Normal ROM, No Deformity, Swelling (+2 pitting edema of the lower extremities) Extremity: Left: Other (Left lower calf w/ 1 cm circular wound, no erythema or purulent discharge (venous stasis ulcer)) Pulses: Left Dorsalis Pedis: Normal, Right Dorsalis Pedis: Normal Neurological/Psych: Oriented x3, Normal Speech, Normal Motor, Normal Sensation ED Course And Treatment - Laboratory Results Result Diagrams: 05/22/18 14:10 05/22/18 14:10 Lab Results: PT 15.6 SECONDS (9.7-12.2) H 05/22/18 14:10 INR 1.4 05/22/18 14:10 APTT 35 SECONDS (21-34) H 05/22/18 14:10 Troponin I 0.0320 ng/mL (0.00-0.120) 05/22/18 14:10 NT-Pro-B Natriuret Pep 7360 pg/mL (0-900) H 05/22/18 14:10 Total Bilirubin 1.3 mg/dL (0.2-1.3) 05/22/18 14:10 AST 32 U/L (17-59) 05/22/18 14:10 ALT 14 U/L (21-72) L 05/22/18 14:10 Alkaline Phosphatase 121 U/L (38-126) 05/22/18 14:10 Total Protein 8.8 g/dL (6.3-8.3) H 05/22/18 14:10 Albumin 4.3 g/dL (3.5-5.0) 05/22/18 14:10 Globulin 4.5 gm/dL (2.2-3.9) H 05/22/18 14:10 Albumin/Globulin Ratio 1.0 (1.0-2.1) 05/22/18 14:10 ECG: Interpreted By Ks ECG Rhythm: V Paced Interpretation Of ECG: normal axis, no acute ST or T wave changes Rate From EC O2 Sat by Pulse Oximetry: 96 (NC) Pulse Ox Interpretation: Normal - Other Rad CXR X-Ray: Read By Radiologist Interpretation: Accession No. : [id number]. Patient Name / ID : MARILOU Varghese / [id number]. Exam Date : 05/22/2018 14:38:19 ( Approved ). Study C omment : Sex / Age : M / 68Y. Creator : sisi eduardo. Dictator : Kristi Cruz MD. Paint Prepper : Financial Services Associate : Kristi Cruz MD. Approver2 : Report Date : 05/22/2018 14:54:38. My Comment : . HISTORY: SOB. COMPARISON: Chest x-ray performed 01/23/18. TECHNIQUE: Chest, one view. FINDINGS: Examination limited by habitus and hypoinflation. LUNGS: Small bilateral pleural effusions. Bibasilar atelectasis. No definite pneumothorax. CARDIOVASCULAR: Re-identified severe cardiomegaly. Left-sided AICD. OSSEOUS STRUCTURES: No acute osseous abnormality identified. VISUALIZED UPPER ABDOMEN: Elevation of the right hemidiaphragm. OTHER FINDINGS: None. IMPRESSION: Re-identified severe cardiomegaly. Left-sided AICD. Small bilateral pleural effusions. Bibasilar atelectasis. Progress Note: EKG, Labs, CXR ordered and reviewed. Bladder scan done, with 187cc drained. Administered 40 mg IV Lasix. Patient continues to have mild wheezing. Given albuterol neb x1. Labs and imaging reviewed. Will admit patient for CHF exacerbation and fluid overload. - Physician Consult Information Physician Contacted: Matilde Mahajan Outcome Of Conversation: accepts patient for admission Disposition Counseled Patient/Family Regarding: Studies Performed, Diagnosis - Disposition Disposition: HOSPITALIZED Disposition Time: 15:50 - Scribe Statement The provider has reviewed the documentation as recorded by the Kaity Metz Provider Attestation: All medical record entries made by the Kaity were at my direction and personally dictated by me. I have reviewed the chart and agree that the record accurately reflects my personal performance of the history, physical exam, medical decision making, and the department course for this patient. I have also personally directed, reviewed, and agree with the discharge instructions and disposition.
[2018-05-22 15:06] LABS: CK-MB 1.71 ng/mL (0.0-3.38)
[2018-05-22] MEDS ORDERED: Albuterol 0.083% Inhal Sol (2.5 mg/3 mL) UD IH STA (15:46)
--- NOTE | 2018-05-22 15:48 | RAD ---
HISTORY: SOB COMPARISON: Chest x-ray performed 01/23/18 TECHNIQUE: Chest, one view. FINDINGS: Examination limited by habitus and hypoinflation. LUNGS: Small bilateral pleural effusions. Bibasilar atelectasis. No definite pneumothorax. CARDIOVASCULAR: Re-identified severe cardiomegaly. Left-sided AICD. OSSEOUS STRUCTURES: No acute osseous abnormality identified. VISUALIZED UPPER ABDOMEN: Elevation of the right hemidiaphragm. OTHER FINDINGS: None. IMPRESSION: Re-identified severe cardiomegaly. Left-sided AICD. Small bilateral pleural effusions. Bibasilar atelectasis.
[2018-05-22] MEDS ORDERED: Albuterol 0.083% Inhal Sol (2.5 mg/3 mL) UD ONE (15:55)
--- NOTE | 2018-05-22 17:09 | CP.PCM.HP ---
Past Patient History - Infectious Disease Hx of Infectious Diseases: None - Past Medical History & Family History Past Medical History?: Yes - Past Social History Smoking Status: Former Smoker - CARDIAC Hx Congestive Heart Failure: Yes Hx Hypercholesterolemia: Yes Hx Hypertension: Yes Hx Pacemaker: Yes - PULMONARY Hx Respiratory Disorders: No - NEUROLOGICAL Hx Neurological Disorder: No - HEENT Hx HEENT Problems: No - RENAL Hx Chronic Kidney Disease: No - ENDOCRINE/METABOLIC Hx Diabetes Mellitus Type 2: Yes - HEMATOLOGICAL/ONCOLOGICAL Hx Blood Disorders: No - INTEGUMENTARY Hx Dermatological Problems: No - MUSCULOSKELETAL/RHEUMATOLOGICAL Hx Arthritis: Yes - GASTROINTESTINAL Hx Gastrointestinal Disorders: No - GENITOURINARY/GYNECOLOGICAL Hx Genitourinary Disorders: No - PSYCHIATRIC Hx Substance Use: No - SURGICAL HISTORY Hx Appendectomy: Yes - ANESTHESIA Hx Anesthesia: Yes Hx Anesthesia Reactions: No Hx Malignant Hyperthermia: No Meds Allergies/Adverse Reactions: Allergies Allergy/AdvReac Type Severity Reaction Status Date / Time No Known Allergies Allergy Verified 04/15/18 16:30 Physical Exam - Constitutional Appears: Well - Head Exam Head Exam: ATRAUMATIC, NORMAL INSPECTION, NORMOCEPHALIC - Eye Exam Eye Exam: EOMI, Normal appearance, PERRL Pupil Exam: NORMAL ACCOMODATION, PERRL - ENT Exam ENT Exam: Mucous Membranes Moist, Normal Exam - Neck Exam Neck exam: Positive for: Normal Inspection - Respiratory Exam Respiratory Exam: Decreased Breath Sounds - Cardiovascular Exam Cardiovascular Exam: REGULAR RHYTHM, +S1, +S2 - GI/Abdominal Exam GI & Abdominal Exam: Diminished Bowel Sounds, Soft - Rectal Exam Rectal Exam: Deferred Results - Vital Signs Recent Vital Signs: Last Vital Signs Temp 97.9 F 05/22/18 16:13 Pulse 87 05/22/18 16:13 Resp 21 05/22/18 16:13 BP 157/85 H 05/22/18 16:13 Pulse Ox 96 05/22/18 16:36 - Labs Result Diagrams: 05/22/18 14:10 05/22/18 14:10 Labs: Laboratory Results - last 24 hr 05/22/18 05/22/18 05/22/18 14:10 14:10 14:10 WBC 7.4 RBC 3.45 L Hgb 8.4 L Hct 27.7 L MCV 80.3 D MCH 24.5 L MCHC 30.5 L RDW 20.8 H Plt Count 200 MPV 8.1 Neut % (Auto) 68.2 Lymph % (Auto) 13.6 L Buchanan % (Auto) 16.3 H Eos % (Auto) 1.0 Baso % (Auto) 0.9 Neut # (Auto) 5.0 Lymph # (Auto) 1.0 Buchanan # (Auto) 1.2 H Eos # (Auto) 0.1 Baso # (Auto) 0.1 PT 15.6 H INR 1.4 APTT 35 H Sodium 140 Potassium 4.8 Chloride 96 L Carbon Dioxide 34 H Anion Gap 15 BUN 32 H Creatinine 1.3 Est GFR ( Amer) > 60 Est GFR (Non-Af Amer) 55 Random Glucose 88 Calcium 8.4 L Total Bilirubin 1.3 AST 32 ALT 14 L Alkaline Phosphatase 121 Total Creatine Kinase 79 CK-MB (Mass) 1.71 Troponin I 0.0320 NT-Pro-B Natriuret Pep 7360 H Total Protein 8.8 H Albumin 4.3 Globulin 4.5 H Albumin/Globulin Ratio 1.0
[2018-05-22 17:57] VITALS: RESP 20
[2018-05-22] MEDS: Promethazine DM 12.5 mg-30 mg/10 ml Syrup PO PRN (22:21)
[2018-05-23] MEDS ORDERED: Simethicone 80 mg Chewtab PO STA (03:38)
[2018-05-23] MEDS: Sacubitril/Valsartan 24-26mg Tab PO SCH ×2 (08:46→21:11)
[2018-05-23] MEDS: Enoxaparin 40 mg Syringe SC SCH (09:51)
[2018-05-23] MEDS: Moxifloxacin IV 400mg/250ml NS 400 MG/250 ML BAG IVPB SCH (09:51)
[2018-05-23] MEDS: Pantoprazole 40 mg EC Tab PO SCH (09:52)
--- NOTE | 2018-05-23 18:51 | CP.PCM.CON ---
History of Present Illness - History of Present Illness History of Present Illness: Podiatry Consult note for Dr. Montoya 68M with PMH CHF, HTN, COPD, prediabetes seen at bedside for left leg ulceration and right leg blistering. Patient states that he has seen Dr. Montoya for ulcerations to his legs in the past. He does not know when his wound occurred but does states that his leg has been "leaking again" recently. He is AAO x 3 and NAD. Denies any further pedal complaints. Denies any N/V/F/C/CP/SOB Review of Systems - Review of Systems All systems: reviewed and no additional remarkable complaints except Review of Systems: as per HPI Past Patient History - Infectious Disease Hx of Infectious Diseases: None - Past Medical History & Family History Past Medical History?: Yes - Past Social History Smoking Status: Former Smoker - CARDIAC Hx Congestive Heart Failure: Yes Hx Hypercholesterolemia: Yes Hx Hypertension: Yes Hx Pacemaker: Yes - PULMONARY Hx Respiratory Disorders: No - NEUROLOGICAL Hx Neurological Disorder: No - HEENT Hx HEENT Problems: No - RENAL Hx Chronic Kidney Disease: No - ENDOCRINE/METABOLIC Hx Diabetes Mellitus Type 2: Yes - HEMATOLOGICAL/ONCOLOGICAL Hx Blood Disorders: No - INTEGUMENTARY Hx Dermatological Problems: No - MUSCULOSKELETAL/RHEUMATOLOGICAL Hx Arthritis: Yes - GASTROINTESTINAL Hx Gastrointestinal Disorders: No - GENITOURINARY/GYNECOLOGICAL Hx Genitourinary Disorders: No - PSYCHIATRIC Hx Substance Use: No - SURGICAL HISTORY Hx Appendectomy: Yes - ANESTHESIA Hx Anesthesia: Yes Hx Anesthesia Reactions: No Hx Malignant Hyperthermia: No Meds Allergies/Adverse Reactions: Allergies Allergy/AdvReac Type Severity Reaction Status Date / Time No Known Allergies Allergy Verified 04/15/18 16:30 - Medications Medications: Current Medications Aspirin (Aspirin Chewable) 81 mg PO DAILY [facility] Last Admin: 05/23/18 09:52 Dose: 81 mg Carvedilol (Coreg) 3.125 mg PO BID [facility] Last Admin: 05/23/18 09:52 Dose: 3.125 mg Docusate Sodium (Colace) 100 mg PO DAILY [facility] Last Admin: 05/23/18 09:52 Dose: 100 mg Enoxaparin Sodium (Lovenox) 40 mg SC DAILY [facility] Last Admin: 05/23/18 09:51 Dose: 40 mg Furosemide (Lasix) 40 mg IVP DAILY [facility] Last Admin: 03/08/19 09:53 Dose: 40 mg Moxifloxacin HCl (Avelox Iv 400mg/250ml Ns) 400 mg in 250 mls @ 167 mls/hr IVPB Q24H [facility]; Protocol Last Admin: 05/23/18 09:51 Dose: 167 mls/hr Pantoprazole Sodium (Protonix Ec Tab) 40 mg PO DAILY [facility] Last Admin: 05/23/18 09:52 Dose: 40 mg Promethazine HCl/Dextromethorphan (Phenergan Dm Syrup) 10 ml PO TID PRN PRN Reason: Cough Last Admin: 05/22/18 22:21 Dose: 10 ml Rosuvastatin Calcium (Crestor) 5 mg PO HS [facility] Last Admin: 05/22/18 22:21 Dose: 5 mg Sacubitril/Valsartan (Entresto 24 Mg-26 Mg) 1 tab PO 799,1999 [facility] Last Admin: 05/23/18 08:46 Dose: 1 tab Physical Exam - Constitutional Appears: Well, Non-toxic, No Acute Distress - Extremities Exam Additional comments: LLE focused exam: Vasc: DP/PT pulses faintly palpable 1/4 b/l. Skin temperature warm to warm from proximal to distal WNL. CFT < 3 seconds to all digits. Moderate edema noted diffusely to both legs Neuro: Epicritic and protective sensation grossly diminished b/l Derm: 1 cm x 1 cm x 0.2 cm ulceration noted to medial aspect of left leg. Moderate serous drainage appreciated from wound. No malodor, purulence, tracking, tunneling or undermining appreciated. No other clinical signs of infection noted. Blistering noted to anterior right leg without any lysing appreciated MSK: No pain on palpation to ulceration site. No gross deformities noted Biomechanical examination: Ankle ROM with knee flexed > 10 degrees, with knee extended < 10 degrees RCSP: 2 degrees everted First ray: Rectus with equal dorsiflexion and plantarflexion First MTPJ ROM < 65 degrees and rectus position Digits rectus Normal gait, non-antalgic in nature No evidence of should drop - Neurological Exam Neurological exam: Alert, Oriented x3 - Psychiatric Exam Psychiatric exam: Normal Affect, Normal Mood Results - Vital Signs Recent Vital Signs: Last Vital Signs Temp 97.2 F L 05/23/18 15:25 Pulse 77 05/23/18 15:25 Resp 20 05/23/18 15:25 BP 105/58 L 05/23/18 15:25 Pulse Ox 92 L 05/23/18 15:25 - Labs Result Diagrams: 05/22/18 14:10 05/22/18 14:10 Labs: Laboratory Results - last 24 hr 05/23/18 06:25 POC Glucose (mg/dL) 116 H Assessment & Plan - Assessment and Plan (Free Text) Assessment: 68M seen for left leg wound and right leg blistering Plan: Patient seen and evaluated Plan discussed with Dr. Montoya Absent leukocytosis Wound cx taken of left leg, f/u results Wound dressed with xeroforom, DSD Right leg lightly wrapped with JUANITA compression No plan for surgical intervention at this time Podiatry will continue to follow while patient in house - Date & Time Date: 05/23/18 Time: 18:53
--- NOTE | 2018-05-23 20:41 | CP.PCM.PN ---
Subjective - Date & Time of Evaluation Date of Evaluation: 05/23/18 Time of Evaluation: 10:45 - Subjective Subjective: clinically same Objective - Vital Signs/Intake and Output Vital Signs (last 24 hours): Temp Pulse Resp BP Pulse Ox 97.2 F L 77 20 105/58 L 92 L 05/23/18 15:25 05/23/18 15:25 05/23/18 15:25 05/23/18 15:25 05/23/18 15:25 Intake and Output: 05/23/18 05/24/18 18:59 06:59 Intake Total 450 Balance 450 - Medications Medications: Current Medications Aspirin (Aspirin Chewable) 81 mg PO DAILY [facility] Last Admin: 05/23/18 09:52 Dose: 81 mg Carvedilol (Coreg) 3.125 mg PO BID [facility] Last Admin: 05/23/18 09:52 Dose: 3.125 mg Docusate Sodium (Colace) 100 mg PO DAILY [facility] Last Admin: 05/23/18 09:52 Dose: 100 mg Enoxaparin Sodium (Lovenox) 40 mg SC DAILY [facility] Last Admin: 05/23/18 09:51 Dose: 40 mg Furosemide (Lasix) 40 mg IVP DAILY [facility] Last Admin: 05/23/18 09:53 Dose: 40 mg Moxifloxacin HCl (Avelox Iv 400mg/250ml Ns) 400 mg in 250 mls @ 167 mls/hr IVPB Q24H [facility]; Protocol Last Admin: 05/23/18 09:51 Dose: 167 mls/hr Pantoprazole Sodium (Protonix Ec Tab) 40 mg PO DAILY [facility] Last Admin: 05/23/18 09:52 Dose: 40 mg Promethazine HCl/Dextromethorphan (Phenergan Dm Syrup) 10 ml PO TID PRN PRN Reason: Cough Last Admin: 05/22/18 22:21 Dose: 10 ml Rosuvastatin Calcium (Crestor) 5 mg PO HS [facility] Last Admin: 05/22/18 22:21 Dose: 5 mg Sacubitril/Valsartan (Entresto 24 Mg-26 Mg) 1 tab PO 0800,1999 [facility] Last Admin: 05/23/18 08:46 Dose: 1 tab - Labs Labs: 05/22/18 14:10 05/22/18 14:10 PT 15.6 SECONDS (9.7-12.2) H 05/22/18 14:10 INR 1.4 05/22/18 14:10 APTT 35 SECONDS (21-34) H 05/22/18 14:10
[2018-05-24] MEDS: Sacubitril/Valsartan 24-26mg Tab PO SCH ×2 (07:44→20:07)
[2018-05-24] MEDS: Moxifloxacin IV 400mg/250ml NS 400 MG/250 ML BAG IVPB SCH (09:58)
[2018-05-24] MEDS: Enoxaparin 40 mg Syringe SC SCH (09:59)
[2018-05-24] MEDS: Pantoprazole 40 mg EC Tab PO SCH (09:59)
[2018-05-24] MEDS: Promethazine DM 12.5 mg-30 mg/10 ml Syrup PO PRN ×3 (10:18→20:10)
--- NOTE | 2018-05-24 11:07 | CP.PCM.PN ---
Subjective - Date & Time of Evaluation Date of Evaluation: 05/24/18 Time of Evaluation: 11:04 - Subjective Subjective: Podiatry progress note - Dr. Montoya 68M seen and evaluated at bedside this AM with Dr. Montoya. States that he is in no pain this morning. Dressing are dry and intact. Denies n/v/f/c/sob/cp and has no other acute complaints. Objective - Vital Signs/Intake and Output Vital Signs (last 24 hours): Temp Pulse Resp BP Pulse Ox 97.6 F 77 20 112/64 97 05/24/18 09:05 05/24/18 09:05 05/24/18 09:05 05/24/18 10:00 05/24/18 09:05 - Medications Medications: Current Medications Aspirin (Aspirin Chewable) 81 mg PO DAILY [facility] Last Admin: 05/24/18 09:59 Dose: 81 mg Carvedilol (Coreg) 3.125 mg PO BID [facility] Last Admin: 05/24/18 09:59 Dose: 3.125 mg Docusate Sodium (Colace) 100 mg PO DAILY [facility] Last Admin: 05/24/18 10:01 Dose: 100 mg Enoxaparin Sodium (Lovenox) 40 mg SC DAILY [facility] Last Admin: 05/24/18 09:59 Dose: 40 mg Furosemide (Lasix) 40 mg IVP DAILY [facility] Last Admin: 05/24/18 10:00 Dose: 40 mg Moxifloxacin HCl (Avelox Iv 400mg/250ml Ns) 400 mg in 250 mls @ 167 mls/hr IVPB Q24H [facility]; Protocol Last Admin: 05/24/18 09:58 Dose: 167 mls/hr Pantoprazole Sodium (Protonix Ec Tab) 40 mg PO DAILY [facility] Last Admin: 05/24/18 09:59 Dose: 40 mg Promethazine HCl/Dextromethorphan (Phenergan Dm Syrup) 10 ml PO TID PRN PRN Reason: Cough Last Admin: 05/24/18 10:18 Dose: 10 ml Rosuvastatin Calcium (Crestor) 5 mg PO HS [facility] Last Admin: 05/23/18 21:11 Dose: 5 mg Sacubitril/Valsartan (Entresto 24 Mg-26 Mg) 1 tab PO 799,1999 [facility] Last Admin: 05/24/18 07:44 Dose: 1 tab - Labs Labs: 05/22/18 14:10 05/22/18 14:10 PT 15.6 SECONDS (9.7-12.2) H 05/22/18 14:10 INR 1.4 05/22/18 14:10 APTT 35 SECONDS (21-34) H 05/22/18 14:10 - Constitutional Appears: Well, Non-toxic - Head Exam Head Exam: ATRAUMATIC - Extremities Exam Additional comments: LLE focused exam: Vasc: DP/PT pulses faintly palpable 1/4 b/l. Skin temperature warm to warm from proximal to distal WNL. CFT < 3 seconds to all digits. Moderate edema noted diffusely to both legs Neuro: Epicritic and protective sensation grossly diminished b/l Derm: 1 cm x 1 cm x 0.2 cm ulceration noted to medial aspect of left leg. Moderate serous drainage appreciated from wound. No malodor, purulence, tracking, tunneling or undermining appreciated. No other clinical signs of infection noted. Blistering noted to anterior right leg without any lysing appreciated MSK: No pain on palpation to ulceration site. No gross deformities noted - Neurological Exam Neurological Exam: Alert, Awake, Oriented x3 - Psychiatric Exam Psychiatric exam: Normal Affect, Normal Mood Assessment and Plan - Assessment and Plan (Free Text) Assessment: 68M with left leg wound and right leg blistering Plan: Patient seen and evaluated with Dr. Montoya Absent leukocytosis Wound cx taken of left leg, f/u results Wound dressed with xeroforom, DSD Right leg lightly wrapped with JUANITA compression No plan for surgical intervention at this time Podiatry will continue to follow while patient in house
--- NOTE | 2018-05-24 12:59 | CP.PCM.CON ---
History of Present Illness - History of Present Illness History of Present Illness: patient seen/examined. full consult to follow recommend increase lasix medication titration Past Patient History - Infectious Disease Hx of Infectious Diseases: None - Past Medical History & Family History Past Medical History?: Yes - Past Social History Smoking Status: Former Smoker - CARDIAC Hx Congestive Heart Failure: Yes Hx Hypercholesterolemia: Yes Hx Hypertension: Yes Hx Pacemaker: Yes - PULMONARY Hx Respiratory Disorders: No - NEUROLOGICAL Hx Neurological Disorder: No - HEENT Hx HEENT Problems: No - RENAL Hx Chronic Kidney Disease: No - ENDOCRINE/METABOLIC Hx Diabetes Mellitus Type 2: Yes - HEMATOLOGICAL/ONCOLOGICAL Hx Blood Disorders: No - INTEGUMENTARY Hx Dermatological Problems: No - MUSCULOSKELETAL/RHEUMATOLOGICAL Hx Arthritis: Yes - GASTROINTESTINAL Hx Gastrointestinal Disorders: No - GENITOURINARY/GYNECOLOGICAL Hx Genitourinary Disorders: No - PSYCHIATRIC Hx Substance Use: No - SURGICAL HISTORY Hx Appendectomy: Yes - ANESTHESIA Hx Anesthesia: Yes Hx Anesthesia Reactions: No Hx Malignant Hyperthermia: No Meds Allergies/Adverse Reactions: Allergies Allergy/AdvReac Type Severity Reaction Status Date / Time No Known Allergies Allergy Verified 04/15/18 16:30 - Medications Medications: Current Medications Aspirin (Aspirin Chewable) 81 mg PO DAILY [facility] Last Admin: 05/24/18 09:59 Dose: 81 mg Carvedilol (Coreg) 3.125 mg PO BID [facility] Last Admin: 05/24/18 09:59 Dose: 3.125 mg Docusate Sodium (Colace) 100 mg PO DAILY [facility] Last Admin: 05/24/18 10:01 Dose: 100 mg Enoxaparin Sodium (Lovenox) 40 mg SC DAILY [facility] Last Admin: 05/24/18 09:59 Dose: 40 mg Moxifloxacin HCl (Avelox Iv 400mg/250ml Ns) 400 mg in 250 mls @ 167 mls/hr IVPB Q24H [facility]; Protocol Last Admin: 05/24/18 09:58 Dose: 167 mls/hr Pantoprazole Sodium (Protonix Ec Tab) 40 mg PO DAILY [facility] Last Admin: 05/24/18 09:59 Dose: 40 mg Promethazine HCl/Dextromethorphan (Phenergan Dm Syrup) 10 ml PO TID PRN PRN Reason: Cough Last Admin: 05/24/18 10:18 Dose: 10 ml Rosuvastatin Calcium (Crestor) 5 mg PO HS [facility] Last Admin: 05/23/18 21:11 Dose: 5 mg Sacubitril/Valsartan (Entresto 24 Mg-26 Mg) 1 tab PO 799,1999 [facility] Last Admin: 05/24/18 07:44 Dose: 1 tab Results - Vital Signs Recent Vital Signs: Last Vital Signs Temp 97.6 F 05/24/18 09:05 Pulse 77 05/24/18 09:05 Resp 20 05/24/18 09:05 BP 112/64 05/24/18 10:00 Pulse Ox 97 05/24/18 09:05 - Labs Result Diagrams: 05/22/18 14:10 05/22/18 14:10 Labs: Laboratory Results - last 24 hr 05/23/18 05/24/18 22:09 11:45 POC Glucose (mg/dL) 143 H 275 H
--- NOTE | 2018-05-24 12:59 | CP.PCM.CON ---
History of Present Illness - History of Present Illness History of Present Illness: Patient seen 05/24/18 [id number] I was asked to see patient by Dr Mariluz Mahajan. 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 Symptoms began months ago, and the patient was in a hospital in the [place]. He reports progressive dyspnea and lower extremity edema. Patient is admitted for further management Review of Systems - Constitutional Constitutional: absent: As Per HPI, Anorexia, Chills, Daytime Sleepiness, Excessive Sweating, Fatigue, Fever, Frequent Falls, Headache, Increased Appetite, Lethargy, Malaise, Night Sweats, Snoring, Sleep Apnea, Weight Gain, Weight Loss, Weakness, Other - EENT Eyes: absent: As Per HPI, Blind Spots, Blurred Vision, Change in Vision, Decreased Night Vision, Diplopia, Discharge, Dry Eye, Exophthalmos, Floaters, Irritation, Itchy Eyes, Loss of Peripheral Vision, Pain, Photophobia, Requires Corrective Lenses, Sees Flashes, Spots in Vision, Tunnel Vision, Other Visual Disturbances, Loss of Vision, Other Ears: absent: As Per HPI, Decreased Hearing, Ear Discharge, Ear Pain, Tinnitus, Abnormal Hearing, Disequilibrium, Dizziness, Other Nose/Mouth/Throat: absent: As Per HPI, Epistaxis, Nasal Congestion, Nasal Discharge, Nasal Obstruction, Nasal Trauma, Nose Pain, Post Nasal Drip, Sinus Pain, Sinus Pressure, Bleeding Gums, Change in Voice, Dental Pain, Dry Mouth, Dysphagia, Halitosis, Hoarsness, Lip Swelling, Mouth Lesions, Mouth Pain, Odynophagia, Sore Throat, Throat Swelling, Tongue Swelling, Facial Pain, Neck Pain, Neck Mass, Other - Cardiovascular Cardiovascular: Dyspnea, Dyspnea on Exertion, Edema, Orthopnea, Paroxysmal Nocturnal Dyspnea - Respiratory Respiratory: Dyspnea - Gastrointestinal Gastrointestinal: absent: As Per HPI, Abdominal Pain, Belching, Bloating, Change in Bowel Habits, Change in Stool Character, Coffee Ground Emesis, Constipation, Cramping, Diarrhea, Dyspepsia, Dysphagia, Early Satiety, Excessive Flatus, Fecal Incontinence, Heartburn, Hematemesis, Hematochezia, Loose Stools, Melena, Nausea, Odynophagia, Temesmus, Vomiting, Other - Genitourinary Genitourinary: absent: As Per HPI, Change in Urinary Stream, Difficulty Urinating, Dysuria, Flank Pain, Hematuria, Pyuria, Nocturia, Urinary Incontinence, Urinary Frequency, Urinary Hesitance, Urinary Urgency, Voiding Freq/Small Amts, Freq UTI, Hx Renal/Bladder Calculi, Hx /Renal Surgery, Bladder Distension, Other - Musculoskeletal Musculoskeletal: absent: As Per HPI, Abnormal Gait, Arthralgias, Atrophy, Back Pain, Deformity, Joint Swelling, Limited Range of Motion, Loss of Height, Muscle Cramps, Muscle Weakness, Myalgias, Neck Pain, Numbness, Radiating Pain into Limb, Stiffness, Tingling, Other - Integumentary Integumentary: absent: As Per HPI, Acne, Alopecia, Bleeding Lesions, Change in Hair, Change in Nails, Change in Pigmentation, Changing Lesions, Dry Skin, Erythema, Furuncle, Hirsutism, Lesions, New Lesions, Non-Healing Lesions, Photo sensitivity, Pruritus, Rash, Skin Pain, Skin Ulcer, Sores, Striae, Swelling, Unusual Bruising, Wounds, Jaundice, Other - Neurological Neurological: absent: As Per HPI, Abnormal Gait, Abnormal Hearing, Abnormal Movements, Abnormal Speech, Behavioral Changes, Burning Sensations, Confusion, Convulsions, Disequilibrium, Dizziness, Numbness, Focal Weakness, Frequent Falls, Headaches, Lack of Coordination, Loss of Vision, Memory Loss, Paresthesias, Radicular Pain, Restless Legs, Sensory Deficit, Syncope, Tingling, Tremor, Vertigo, Weakness, Other Visual Disturbances, Other - Psychiatric Psychiatric: absent: As Per HPI, Abnormal Sleep Pattern, Anhedonia, Anxiety, Auditory Hallucinations, Behavioral Changes, Change in Appetite, Change in Libido, Confusion, Depression, Difficulty Concentrating, Hallucinations, Homicidal Ideation, Hopelessness, Irritability, Memory Loss, Mood Swings, Panic Attacks, Paranoia, Suicidal Ideation, Visual Hallucinations, Tactile Hallucinations, Other - Endocrine Endocrine: absent: As Per HPI, Change in Body Appearance, Change in Libido, Cold Intolorance, Deepening of Voice, Excessive Sweating, Fatigue, Flushing, Heat Intolorance, Increase in Ring/Shoe/Hat Size, Palpitations, Polydipsia, Polyphagia, Polyuria, Other - Hematologic/Lymphatic Hematologic: absent: As Per HPI, Easy Bleeding, Easy Bruising, Lymphadenopathy, Other Past Patient History - Infectious Disease Hx of Infectious Diseases: None - Past Medical History & Family History Past Medical History?: Yes - Past Social History Smoking Status: Former Smoker - CARDIAC Hx Congestive Heart Failure: Yes Hx Hypercholesterolemia: Yes Hx Hypertension: Yes Hx Pacemaker: Yes - PULMONARY Hx Respiratory Disorders: No - NEUROLOGICAL Hx Neurological Disorder: No - HEENT Hx HEENT Problems: No - RENAL Hx Chronic Kidney Disease: No - ENDOCRINE/METABOLIC Hx Diabetes Mellitus Type 2: Yes - HEMATOLOGICAL/ONCOLOGICAL Hx Blood Disorders: No - INTEGUMENTARY Hx Dermatological Problems: No - MUSCULOSKELETAL/RHEUMATOLOGICAL Hx Arthritis: Yes - GASTROINTESTINAL Hx Gastrointestinal Disorders: No - GENITOURINARY/GYNECOLOGICAL Hx Genitourinary Disorders: No - PSYCHIATRIC Hx Substance Use: No - SURGICAL HISTORY Hx Appendectomy: Yes - ANESTHESIA Hx Anesthesia: Yes Hx Anesthesia Reactions: No Hx Malignant Hyperthermia: No Meds Allergies/Adverse Reactions: Allergies Allergy/AdvReac Type Severity Reaction Status Date / Time No Known Allergies Allergy Verified 04/15/18 16:30 - Medications Medications: Current Medications Aspirin (Aspirin Chewable) 81 mg PO DAILY [facility] Last Admin: 05/24/18 09:59 Dose: 81 mg Carvedilol (Coreg) 3.125 mg PO BID [facility] Last Admin: 05/24/18 09:59 Dose: 3.125 mg Docusate Sodium (Colace) 100 mg PO DAILY [facility] Last Admin: 05/24/18 10:01 Dose: 100 mg Enoxaparin Sodium (Lovenox) 40 mg SC DAILY [facility] Last Admin: 05/24/18 09:59 Dose: 40 mg Furosemide (Lasix) 40 mg IVP BID [facility] Moxifloxacin HCl (Avelox Iv 400mg/250ml Ns) 400 mg in 250 mls @ 167 mls/hr IVPB Q24H [facility]; Protocol Last Admin: 05/24/18 09:58 Dose: 167 mls/hr Pantoprazole Sodium (Protonix Ec Tab) 40 mg PO DAILY [facility] Last Admin: 05/24/18 09:59 Dose: 40 mg Promethazine HCl/Dextromethorphan (Phenergan Dm Syrup) 10 ml PO TID PRN PRN Reason: Cough Last Admin: 05/24/18 10:18 Dose: 10 ml Rosuvastatin Calcium (Crestor) 5 mg PO HS [facility] Last Admin: 05/23/18 21:11 Dose: 5 mg Sacubitril/Valsartan (Entresto 24 Mg-26 Mg) 1 tab PO 799,1999 [facility] Last Admin: 05/24/18 07:44 Dose: 1 tab Physical Exam - Constitutional Appears: Non-toxic - Head Exam Head Exam: NORMAL INSPECTION - Eye Exam Eye Exam: Normal appearance - ENT Exam ENT Exam: Mucous Membranes Moist - Neck Exam Neck exam: Positive for: Full Rom - Respiratory Exam Respiratory Exam: Decreased Breath Sounds - Cardiovascular Exam Cardiovascular Exam: REGULAR RHYTHM - GI/Abdominal Exam GI & Abdominal Exam: Normal Bowel Sounds - Rectal Exam Rectal Exam: Deferred - Extremities Exam Extremities exam: Positive for: pedal edema - Back Exam Back exam: NORMAL INSPECTION - Neurological Exam Neurological exam: Alert, Oriented x3 - Psychiatric Exam Psychiatric exam: Normal Affect - Skin Skin Exam: Normal Color Results - Vital Signs Recent Vital Signs: Last Vital Signs Temp 97.6 F 05/24/18 09:05 Pulse 77 05/24/18 09:05 Resp 20 05/24/18 09:05 BP 112/64 05/24/18 10:00 Pulse Ox 97 05/24/18 09:05 - Labs Result Diagrams: 05/22/18 14:10 05/22/18 14:10 Labs: Laboratory Results - last 24 hr 05/23/18 05/24/18 22:09 11:45 POC Glucose (mg/dL) 143 H 275 H - EKG Data EKG Interpreted by: Myself Assessment & Plan (1) Acute on chronic systolic and diastolic heart failure, NYHA class 2 Assessment and Plan: patient will requiore medical optimization. increase lasix. will consider increase Coreg. Status: Acute (2) CAD (coronary artery disease) Assessment and Plan: no current angina Status: Acute (3) Hypertension Assessment and Plan: blood pressure control Status: Chronic Priority: Medium
--- NOTE | 2018-05-24 14:57 | CP.PCM.PN ---
Subjective - Date & Time of Evaluation Date of Evaluation: 05/24/18 Time of Evaluation: 10:30 - Subjective Subjective: clinically same Objective - Vital Signs/Intake and Output Vital Signs (last 24 hours): Temp Pulse Resp BP Pulse Ox 97.6 F 80 20 112/64 97 05/24/18 09:05 05/24/18 12:35 05/24/18 09:05 05/24/18 10:00 05/24/18 09:05 Intake and Output: 05/24/18 05/24/18 06:59 18:59 Intake Total 600 Balance 600 - Medications Medications: Current Medications Aspirin (Aspirin Chewable) 81 mg PO DAILY [facility] Last Admin: 05/24/18 09:59 Dose: 81 mg Carvedilol (Coreg) 3.125 mg PO BID [facility] Last Admin: 05/24/18 09:59 Dose: 3.125 mg Docusate Sodium (Colace) 100 mg PO DAILY [facility] Last Admin: 05/24/18 10:01 Dose: 100 mg Enoxaparin Sodium (Lovenox) 40 mg SC DAILY [facility] Last Admin: 05/24/18 09:59 Dose: 40 mg Furosemide (Lasix) 40 mg IVP BID [facility] Moxifloxacin HCl (Avelox Iv 400mg/250ml Ns) 400 mg in 250 mls @ 167 mls/hr IVPB Q24H [facility]; Protocol Last Admin: 05/24/18 09:58 Dose: 167 mls/hr Pantoprazole Sodium (Protonix Ec Tab) 40 mg PO DAILY [facility] Last Admin: 05/24/18 09:59 Dose: 40 mg Promethazine HCl/Dextromethorphan (Phenergan Dm Syrup) 10 ml PO TID PRN PRN Reason: Cough Last Admin: 05/24/18 10:18 Dose: 10 ml Rosuvastatin Calcium (Crestor) 5 mg PO HS [facility] Last Admin: 05/23/18 21:11 Dose: 5 mg Sacubitril/Valsartan (Entresto 24 Mg-26 Mg) 1 tab PO 00,1999 [facility] Last Admin: 05/24/18 07:44 Dose: 1 tab - Labs Labs: 05/22/18 14:10 05/22/18 14:10 PT 15.6 SECONDS (9.7-12.2) H 05/22/18 14:10 INR 1.4 05/22/18 14:10 APTT 35 SECONDS (21-34) H 05/22/18 14:10 - Constitutional Appears: Well - Head Exam Head Exam: ATRAUMATIC, NORMAL INSPECTION, NORMOCEPHALIC - Eye Exam Eye Exam: EOMI, Normal appearance, PERRL Pupil Exam: NORMAL ACCOMODATION, PERRL - ENT Exam ENT Exam: Mucous Membranes Moist, Normal Exam - Neck Exam Neck Exam: Full ROM, Normal Inspection. absent: Lymphadenopathy - Respiratory Exam Respiratory Exam: Decreased Breath Sounds - Cardiovascular Exam Cardiovascular Exam: REGULAR RHYTHM, +S1, +S2 - GI/Abdominal Exam GI & Abdominal Exam: Diminished Bowel Sounds - Rectal Exam Rectal Exam: Deferred
--- NOTE | 2018-05-25 07:15 | CP.PCM.PN ---
Subjective - Date & Time of Evaluation Date of Evaluation: 05/25/18 Time of Evaluation: 06:55 - Subjective Subjective: patient has less dyspnea. no chest pain Objective - Vital Signs/Intake and Output Vital Signs (last 24 hours): Temp Pulse Resp BP Pulse Ox 97.9 F 78 20 108/61 90 L 05/24/18 23:20 05/25/18 04:01 05/24/18 23:20 05/24/18 23:20 05/24/18 23:20 - Medications Medications: Current Medications Aspirin (Aspirin Chewable) 81 mg PO DAILY [facility] Last Admin: 05/24/18 09:59 Dose: 81 mg Carvedilol (Coreg) 3.125 mg PO BID [facility] Last Admin: 05/24/18 21:27 Dose: 3.125 mg Docusate Sodium (Colace) 100 mg PO DAILY [facility] Last Admin: 05/24/18 10:01 Dose: 100 mg Enoxaparin Sodium (Lovenox) 40 mg SC DAILY [facility] Last Admin: 05/24/18 09:59 Dose: 40 mg Furosemide (Lasix) 40 mg IVP BID [facility] Last Admin: 05/24/18 18:03 Dose: 40 mg Moxifloxacin HCl (Avelox Iv 400mg/250ml Ns) 400 mg in 250 mls @ 167 mls/hr IVPB Q24H [facility]; Protocol Last Admin: 05/24/18 09:58 Dose: 167 mls/hr Pantoprazole Sodium (Protonix Ec Tab) 40 mg PO DAILY [facility] Last Admin: 05/24/18 09:59 Dose: 40 mg Promethazine HCl/Dextromethorphan (Phenergan Dm Syrup) 10 ml PO TID PRN PRN Reason: Cough Last Admin: 05/24/18 20:10 Dose: 10 ml Rosuvastatin Calcium (Crestor) 5 mg PO HS [facility] Last Admin: 05/24/18 21:26 Dose: 5 mg Sacubitril/Valsartan (Entresto 24 Mg-26 Mg) 1 tab PO 00,1999 [facility] Last Admin: 05/24/18 20:07 Dose: 1 tab - Labs Labs: 05/22/18 14:10 05/22/18 14:10 PT 15.6 SECONDS (9.7-12.2) H 05/22/18 14:10 INR 1.4 05/22/18 14:10 APTT 35 SECONDS (21-34) H 05/22/18 14:10 - Constitutional Appears: Non-toxic - Head Exam Head Exam: NORMAL INSPECTION - Eye Exam Eye Exam: Normal appearance - ENT Exam ENT Exam: Mucous Membranes Moist - Neck Exam Neck Exam: Full ROM - Respiratory Exam Respiratory Exam: Decreased Breath Sounds - Cardiovascular Exam Cardiovascular Exam: REGULAR RHYTHM - GI/Abdominal Exam GI & Abdominal Exam: Normal Bowel Sounds - Rectal Exam Rectal Exam: Deferred - Extremities Exam Extremities Exam: Pedal Edema - Back Exam Back Exam: NORMAL INSPECTION - Neurological Exam Neurological Exam: Alert - Psychiatric Exam Psychiatric exam: Normal Affect - Skin Skin Exam: Normal Color Assessment and Plan (1) Acute on chronic systolic and diastolic heart failure, NYHA class 2 Assessment & Plan: slow improvement. continue duresis Status: Acute (2) CAD (coronary artery disease) Assessment & Plan: no angina Status: Acute (3) Hypertension Assessment & Plan: blood pressure control Status: Chronic
[2018-05-25] MEDS: Sacubitril/Valsartan 24-26mg Tab PO SCH ×2 (07:35→20:00)
[2018-05-25] MEDS: Pantoprazole 40 mg EC Tab PO SCH (10:53)
[2018-05-25] MEDS: Enoxaparin 40 mg Syringe SC SCH (10:54)
[2018-05-25] MEDS ORDERED: Vancomycin 1 gm/NS 200 ml 1 GM/200 ML BAG IVPB ONE (13:30)
[2018-05-25] MEDS: Moxifloxacin IV 400mg/250ml NS 400 MG/250 ML BAG IVPB SCH (13:53)
--- NOTE | 2018-05-25 15:50 | CP.PCM.CON ---
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 He reports progressive dyspnea and lower extremity edema. Patient is admitted for further management Referred for ID eval of MRSA + wound c/s from left leg wound present on admission PMHx of CHF, HTN, COPD, prediabetes, presents to the ED with complaints of worsening SOB over the last 4 weeks. He was recently admitted at a hospital in the [place] for the same, and had his medications adjusted, including Lasix. Patient additionally reports difficulty with urinating. States it is sometimes difficult to get the stream out. Because of that, patient has been hesitant to take the Lasix. He denies chest pain or palpitations. Patient does have a nonproductive cough. Denies fever. He is also complaining of testicular/groin swelling, ongoing for over 4 weeks. He denies any dysuria, nausea, vomiting, diarrhea, or constipation. Review of Systems - Constitutional Constitutional: absent: As Per HPI, Anorexia, Chills, Daytime Sleepiness, Excessive Sweating, Fatigue, Fever, Frequent Falls, Headache, Increased Appetite, Lethargy, Malaise, Night Sweats, Snoring, Sleep Apnea, Weight Gain, Weight Loss, Weakness, Other - EENT Eyes: absent: As Per HPI, Blind Spots, Blurred Vision, Change in Vision, Decreased Night Vision, Diplopia, Discharge, Dry Eye, Exophthalmos, Floaters, Irritation, Itchy Eyes, Loss of Peripheral Vision, Pain, Photophobia, Requires Corrective Lenses, Sees Flashes, Spots in Vision, Tunnel Vision, Other Visual Disturbances, Loss of Vision, Other Ears: absent: As Per HPI, Decreased Hearing, Ear Discharge, Ear Pain, Tinnitus, Abnormal Hearing, Disequilibrium, Dizziness, Other Nose/Mouth/Throat: absent: As Per HPI, Epistaxis, Nasal Congestion, Nasal Discharge, Nasal Obstruction, Nasal Trauma, Nose Pain, Post Nasal Drip, Sinus Pain, Sinus Pressure, Bleeding Gums, Change in Voice, Dental Pain, Dry Mouth, Dysphagia, Halitosis, Hoarsness, Lip Swelling, Mouth Lesions, Mouth Pain, Odynophagia, Sore Throat, Throat Swelling, Tongue Swelling, Facial Pain, Neck Pain, Neck Mass, Other - Cardiovascular Cardiovascular: Dyspnea, Dyspnea on Exertion, Edema, Orthopnea, Paroxysmal Nocturnal Dyspnea - Respiratory Respiratory: Dyspnea - Gastrointestinal Gastrointestinal: absent: As Per HPI, Abdominal Pain, Belching, Bloating, Change in Bowel Habits, Change in Stool Character, Coffee Ground Emesis, Constipation, Cramping, Diarrhea, Dyspepsia, Dysphagia, Early Satiety, Excessive Flatus, Fecal Incontinence, Heartburn, Hematemesis, Hematochezia, Loose Stools, Melena, Nausea, Odynophagia, Temesmus, Vomiting, Other - Genitourinary Genitourinary: absent: As Per HPI, Change in Urinary Stream, Difficulty Urinating, Dysuria, Flank Pain, Hematuria, Pyuria, Nocturia, Urinary Incontinence, Urinary Frequency, Urinary Hesitance, Urinary Urgency, Voiding Freq/Small Amts, Freq UTI, Hx Renal/Bladder Calculi, Hx /Renal Surgery, Bladder Distension, Other - Musculoskeletal Musculoskeletal: absent: As Per HPI, Abnormal Gait, Arthralgias, Atrophy, Back Pain, Deformity, Joint Swelling, Limited Range of Motion, Loss of Height, Muscle Cramps, Muscle Weakness, Myalgias, Neck Pain, Numbness, Radiating Pain into Limb, Stiffness, Tingling, Other - Integumentary Integumentary: absent: As Per HPI, Acne, Alopecia, Bleeding Lesions, Change in Hair, Change in Nails, Change in Pigmentation, Changing Lesions, Dry Skin, Erythema, Furuncle, Hirsutism, Lesions, New Lesions, Non-Healing Lesions, Phot osensitivity, Pruritus, Rash, Skin Pain, Skin Ulcer, Sores, Striae, Swelling, Unusual Bruising, Wounds, Jaundice, Other - Neurological Neurological: absent: As Per HPI, Abnormal Gait, Abnormal Hearing, Abnormal Movements, Abnormal Speech, Behavioral Changes, Burning Sensations, Confusion, Convulsions, Disequilibrium, Dizziness, Numbness, Focal Weakness, Frequent Falls, Headaches, Lack of Coordination, Loss of Vision, Memory Loss, Paresthesias, Radicular Pain, Restless Legs, Sensory Deficit, Syncope, Tingling, Tremor, Vertigo, Weakness, Other Visual Disturbances, Other - Psychiatric Psychiatric: absent: As Per HPI, Abnormal Sleep Pattern, Anhedonia, Anxiety, Auditory Hallucinations, Behavioral Changes, Change in Appetite, Change in Libido, Confusion, Depression, Difficulty Concentrating, Hallucinations, Homicidal Ideation, Hopelessness, Irritability, Memory Loss, Mood Swings, Panic Attacks, Paranoia, Suicidal Ideation, Visual Hallucinations, Tactile Hallucinations, Other - Endocrine Endocrine: absent: As Per HPI, Change in Body Appearance, Change in Libido, Cold Intolorance, Deepening of Voice, Excessive Sweating, Fatigue, Flushing, Heat Intolorance, Increase in Ring/Shoe/Hat Size, Palpitations, Polydipsia, Polyphagia, Polyuria, Other - Hematologic/Lymphatic Hematologic: absent: As Per HPI, Easy Bleeding, Easy Bruising, Lymphadenopathy, Other - Medical History PMH: Arthritis, CHF, Diabetes, HTN, Hypercholesterolemia Denies: Chronic Kidney Disease Surgical History: Appendectomy, Pacemaker - [facility] Procedures ASSISTANCE WITH RESPIRATORY VENTILATION, 24-96 HRS, CPAP (01/21/17) DRAINAGE OF LEFT PLEURAL CAVITY, PERCUTANEOUS APPROACH (02/02/17) DRAINAGE OF PERITONEAL CAVITY, PERCUTANEOUS APPROACH (03/05/17) DRAINAGE OF PERITONEAL CAVITY, PERCUTANEOUS APPROACH, DIAGN (04/26/16) DRAINAGE OF RIGHT PLEURAL CAVITY, PERCUTANEOUS APPROACH (03/05/17) EXCISION OF STOMACH, ENDO, DIAGN (11/03/16) EXTRACTION OF RIGHT FOOT SKIN, EXTERNAL APPROACH (08/29/17) FLUOROSCOPY OF SUP VENA CAVA USING L OSM CONTRAST, GUIDANCE (03/05/17) INSERTION OF INFUSION DEV INTO SUP VENA CAVA, PERC APPROACH (03/05/17) INSPECTION OF LOWER INTESTINAL TRACT, ENDO (11/03/16) TRANSFUSE NONAUT RED BLOOD CELLS IN PERIPH VEIN, PERC (01/21/17) ULTRASONOGRAPHY OF SUPERIOR VENA CAVA, GUIDANCE (03/05/17) Past Patient History - Infectious Disease Hx of Infectious Diseases: None - Past Medical History & Family History Past Medical History?: Yes - Past Social History Smoking Status: Former Smoker - CARDIAC Hx Congestive Heart Failure: Yes Hx Hypercholesterolemia: Yes Hx Hypertension: Yes - PULMONARY Hx Respiratory Disorders: No - NEUROLOGICAL Hx Neurological Disorder: No - HEENT Hx HEENT Problems: No - RENAL Hx Chronic Kidney Disease: No - ENDOCRINE/METABOLIC Hx Diabetes Mellitus Type 2: Yes - HEMATOLOGICAL/ONCOLOGICAL Hx Blood Disorders: No - INTEGUMENTARY Hx Dermatological Problems: No - MUSCULOSKELETAL/RHEUMATOLOGICAL Hx Arthritis: Yes - GASTROINTESTINAL Hx Gastrointestinal Disorders: No - GENITOURINARY/GYNECOLOGICAL Hx Genitourinary Disorders: No - PSYCHIATRIC Hx Substance Use: No - SURGICAL HISTORY Hx Appendectomy: Yes - ANESTHESIA Hx Anesthesia: Yes Hx Anesthesia Reactions: No Hx Malignant Hyperthermia: No Meds Allergies/Adverse Reactions: Allergies Allergy/AdvReac Type Severity Reaction Status Date / Time No Known Allergies Allergy Verified 04/15/18 16:30 - Medications Medications: Current Medications Aspirin (Aspirin Chewable) 81 mg PO DAILY [facility] Last Admin: 05/25/18 10:53 Dose: 81 mg Carvedilol (Coreg) 3.125 mg PO BID [facility] Last Admin: 05/25/18 10:54 Dose: 3.125 mg Docusate Sodium (Colace) 100 mg PO DAILY [facility] Last Admin: 05/25/18 10:54 Dose: 100 mg Enoxaparin Sodium (Lovenox) 40 mg SC DAILY [facility] Last Admin: 05/25/18 10:54 Dose: 40 mg Furosemide (Lasix) 40 mg IVP BID [facility] Last Admin: 05/25/18 10:54 Dose: 40 mg Moxifloxacin HCl (Avelox Iv 400mg/250ml Ns) 400 mg in 250 mls @ 167 mls/hr IVPB Q24H [facility]; Protocol Last Admin: 05/25/18 13:53 Dose: 167 mls/hr Vancomycin HCl 1 gm/ Sodium (Chloride) 250 mls @ 166.7 mls/hr IVPB Q24H [facility]; Protocol Pantoprazole Sodium (Protonix Ec Tab) 40 mg PO DAILY [facility] Last Admin: 05/25/18 10:53 Dose: 40 mg Promethazine HCl/Dextromethorphan (Phenergan Dm Syrup) 10 ml PO TID PRN PRN Reason: Cough Last Admin: 05/24/18 20:10 Dose: 10 ml Rosuvastatin Calcium (Crestor) 5 mg PO HS [facility] Last Admin: 05/24/18 21:26 Dose: 5 mg Sacubitril/Valsartan (Entresto 24 Mg-26 Mg) 1 tab PO 799,1999 [facility] Last Admin: 05/25/18 07:35 Dose: 1 tab Physical Exam - Constitutional Appears: Non-toxic, No Acute Distress, Chronically Ill - Head Exam Head Exam: ATRAUMATIC, NORMAL INSPECTION, NORMOCEPHALIC - Eye Exam Eye Exam: EOMI, Normal appearance, PERRL Pupil Exam: NORMAL ACCOMODATION, PERRL - ENT Exam ENT Exam: Mucous Membranes Moist, Normal Exam - Neck Exam Neck exam: Positive for: Normal Inspection - Respiratory Exam Respiratory Exam: Decreased Breath Sounds, Prolonged Expiratory Phase, Rales, Rhonchi - Cardiovascular Exam Cardiovascular Exam: REGULAR RHYTHM, +S1, +S2 - GI/Abdominal Exam GI & Abdominal Exam: Diminished Bowel Sounds, Distended, Firm, Guarding. absent: Pulsatile Mass, Rebound, Rigid, Tenderness Additional comments: Ascites ? - Rectal Exam Rectal Exam: Deferred - Exam Exam: NORMAL INSPECTION - Extremities Exam Extremities exam: Positive for: pedal edema. Negative for: calf tenderness, joint swelling, normal capillary refill, pedal pulses present Additional comments: LLE focused exam: Vasc: DP/PT pulses faintly palpable 1/4 b/l. Skin temperature warm to warm from proximal to distal WNL. CFT < 3 seconds to all digits. Moderate edema noted diffusely to both legs Neuro: Epicritic and protective sensation grossly diminished b/l Derm: 1 cm x 1 cm x 0.2 cm ulceration noted to medial aspect of left leg. Moderate serous drainage appreciated from wound. No malodor, purulence, tracking, tunneling or undermining appreciated. No other clinical signs of infection noted. Blistering noted to anterior right leg without any lysing appr eciated MSK: No pain on palpation to ulceration site. No gross deformities noted - Back Exam Back exam: NORMAL INSPECTION - Neurological Exam Neurological exam: Abnormal Gait, Alert, CN II-XII Intact, Motor Sensory Defici t, Oriented x3, Reflexes Normal - Psychiatric Exam Psychiatric exam: Depressed, Flat Affect - Skin Skin Exam: Dry, Intact, Warm Additional comments: leg wound + Results - Vital Signs Recent Vital Signs: Last Vital Signs Temp 97.6 F 05/25/18 08:48 Pulse 76 05/25/18 12:11 Resp 20 05/25/18 08:48 BP 111/65 05/25/18 10:54 Pulse Ox 96 05/25/18 12:11 - Labs Result Diagrams: 05/22/18 14:10 05/22/18 14:10 Assessment & Plan (1) MRSA infection Status: Acute (2) Acute on chronic systolic and diastolic heart failure, NYHA class 2 Status: Acute (3) CAD (coronary artery disease) Status: Acute (4) HELENE (acute kidney injury) Status: Acute (5) ALC (alcoholic liver cirrhosis) Status: Acute (6) Abdominal distension Status: Acute (7) Anemia Status: Acute (8) Ascites Status: Acute Priority: High (9) COPD (chronic obstructive pulmonary disease) Status: Acute - Assessment and Plan (Free Text) Assessment: cultures reviewed orders written severe CHF, COPD, Cirrhosis with ascites, cellulitis/ leg ulcer with MRSA conmsider paracentesis IVB rx in progress
--- NOTE | 2018-05-25 16:06 | CP.PCM.PN ---
Subjective - Date & Time of Evaluation Date of Evaluation: 05/25/18 Time of Evaluation: 10:45 - Subjective Subjective: clinically same Objective - Vital Signs/Intake and Output Vital Signs (last 24 hours): Temp Pulse Resp BP Pulse Ox 97.6 F 76 20 111/65 96 05/25/18 08:48 05/25/18 12:11 05/25/18 08:48 05/25/18 10:54 05/25/18 12:11 - Medications Medications: Current Medications Aspirin (Aspirin Chewable) 81 mg PO DAILY [facility] Last Admin: 05/25/18 10:53 Dose: 81 mg Carvedilol (Coreg) 3.125 mg PO BID [facility] Last Admin: 05/25/18 10:54 Dose: 3.125 mg Docusate Sodium (Colace) 100 mg PO DAILY [facility] Last Admin: 05/25/18 10:54 Dose: 100 mg Enoxaparin Sodium (Lovenox) 40 mg SC DAILY [facility] Last Admin: 05/25/18 10:54 Dose: 40 mg Furosemide (Lasix) 40 mg IVP BID [facility] Last Admin: 05/25/18 10:54 Dose: 40 mg Moxifloxacin HCl (Avelox Iv 400mg/250ml Ns) 400 mg in 250 mls @ 167 mls/hr IVPB Q24H [facility]; Protocol Last Admin: 05/25/18 13:53 Dose: 167 mls/hr Vancomycin HCl 1 gm/ Sodium (Chloride) 250 mls @ 166.7 mls/hr IVPB Q24H [facility]; Protocol Pantoprazole Sodium (Protonix Ec Tab) 40 mg PO DAILY [facility] Last Admin: 05/25/18 10:53 Dose: 40 mg Promethazine HCl/Dextromethorphan (Phenergan Dm Syrup) 10 ml PO TID PRN PRN Reason: Cough Last Admin: 05/24/18 20:10 Dose: 10 ml Rosuvastatin Calcium (Crestor) 5 mg PO HS [facility] Last Admin: 05/24/18 21:26 Dose: 5 mg Sacubitril/Valsartan (Entresto 24 Mg-26 Mg) 1 tab PO 0800,1999 [facility] Last Admin: 05/25/18 07:35 Dose: 1 tab - Labs Labs: 05/22/18 14:10 05/22/18 14:10 PT 15.6 SECONDS (9.7-12.2) H 05/22/18 14:10 INR 1.4 05/22/18 14:10 APTT 35 SECONDS (21-34) H 05/22/18 14:10 - Constitutional Appears: Well - Head Exam Head Exam: ATRAUMATIC, NORMAL INSPECTION, NORMOCEPHALIC - Eye Exam Eye Exam: EOMI, Normal appearance, PERRL Pupil Exam: NORMAL ACCOMODATION, PERRL - ENT Exam ENT Exam: Mucous Membranes Moist, Normal Exam - Neck Exam Neck Exam: Full ROM, Normal Inspection. absent: Lymphadenopathy - Respiratory Exam Respiratory Exam: Decreased Breath Sounds - Cardiovascular Exam Cardiovascular Exam: REGULAR RHYTHM, +S1, +S2 - GI/Abdominal Exam GI & Abdominal Exam: Soft, Diminished Bowel Sounds - Rectal Exam Rectal Exam: Deferred
[2018-05-25] MEDS: Promethazine DM 12.5 mg-30 mg/10 ml Syrup PO PRN (16:52)
[2018-05-26] MEDS: Pantoprazole 40 mg EC Tab PO SCH (09:16)
[2018-05-26] MEDS: Enoxaparin 40 mg Syringe SC SCH (09:16)
[2018-05-26] MEDS: Sacubitril/Valsartan 24-26mg Tab PO SCH ×2 (09:18→21:24)
--- NOTE | 2018-05-26 10:46 | CP.PCM.PN ---
Subjective - Date & Time of Evaluation Date of Evaluation: 05/26/18 Time of Evaluation: 08:00 - Subjective Subjective: Referred for ID eval of MRSA + wound c/s from left leg wound present on admission Objective - Vital Signs/Intake and Output Vital Signs (last 24 hours): Temp Pulse Resp BP Pulse Ox 97.2 F L 76 20 136/85 96 05/26/18 07:15 05/26/18 07:15 05/26/18 07:15 05/26/18 09:16 05/26/18 07:15 - Medications Medications: Current Medications Aspirin (Aspirin Chewable) 81 mg PO DAILY [facility] Last Admin: 05/26/18 09:16 Dose: 81 mg Carvedilol (Coreg) 3.125 mg PO BID [facility] Last Admin: 05/26/18 09:15 Dose: 3.125 mg Docusate Sodium (Colace) 100 mg PO DAILY [facility] Last Admin: 05/26/18 09:16 Dose: 100 mg Enoxaparin Sodium (Lovenox) 40 mg SC DAILY [facility] Last Admin: 05/26/18 09:16 Dose: 40 mg Furosemide (Lasix) 40 mg IVP BID [facility] Last Admin: 05/26/18 09:16 Dose: 40 mg Vancomycin HCl 1 gm/ Sodium (Chloride) 250 mls @ 166.7 mls/hr IVPB Q24H [facility]; Protocol Pantoprazole Sodium (Protonix Ec Tab) 40 mg PO DAILY [facility] Last Admin: 05/26/18 09:16 Dose: 40 mg Promethazine HCl/Dextromethorphan (Phenergan Dm Syrup) 10 ml PO TID PRN PRN Reason: Cough Last Admin: 05/25/18 16:52 Dose: 10 ml Rosuvastatin Calcium (Crestor) 5 mg PO HS [facility] Last Admin: 05/25/18 22:00 Dose: Not Given Sacubitril/Valsartan (Entresto 24 Mg-26 Mg) 1 tab PO 799,1999 [facility] Last Admin: 05/26/18 09:18 Dose: 1 tab - Labs Labs: 05/22/18 14:10 05/22/18 14:10 PT 15.6 SECONDS (9.7-12.2) H 05/22/18 14:10 INR 1.4 05/22/18 14:10 APTT 35 SECONDS (21-34) H 05/22/18 14:10 - Constitutional Appears: Non-toxic, Chronically Ill - Head Exam Head Exam: NORMOCEPHALIC - Eye Exam Eye Exam: absent: Scleral icterus - ENT Exam ENT Exam: Mucous Membranes Dry - Neck Exam Neck Exam: absent: Lymphadenopathy - Respiratory Exam Respiratory Exam: Decreased Breath Sounds - Cardiovascular Exam Cardiovascular Exam: REGULAR RHYTHM - GI/Abdominal Exam GI & Abdominal Exam: Distended, Soft - Rectal Exam Rectal Exam: Deferred - Exam Exam: NORMAL INSPECTION - Extremities Exam Extremities Exam: Pedal Edema - Back Exam Back Exam: absent: CVA tenderness (L), CVA tenderness (R) - Neurological Exam Neurological Exam: Alert, Awake - Psychiatric Exam Psychiatric exam: Depressed Assessment and Plan (1) MRSA infection Status: Acute (2) Acute on chronic systolic and diastolic heart failure, NYHA class 2 Status: Acute (3) CAD (coronary artery disease) Status: Acute (4) HELENE (acute kidney injury) Status: Acute (5) ALC (alcoholic liver cirrhosis) Status: Acute (6) Abdominal distension Status: Acute (7) Anemia Status: Acute (8) Ascites Status: Acute (9) COPD (chronic obstructive pulmonary disease) Status: Acute - Assessment and Plan (Free Text) Assessment: cont wound care and IV antibiotics may need paracentesis await Vanco trough levels
[2018-05-26] MEDS: Moxifloxacin IV 400mg/250ml NS 400 MG/250 ML BAG IVPB SCH (10:57)
--- NOTE | 2018-05-26 12:07 | CP.PCM.PN ---
Subjective - Date & Time of Evaluation Date of Evaluation: 05/26/18 Time of Evaluation: 12:07 - Subjective Subjective: Podiatry progress note - Dr. Montoya 68 y/o male seen and evaluated at bedside this AM with Dr. Montoya. States that he is eating right now and does not want his dressings changed. Dressing are dry and intact. Denies F/C/N/V/CP/SOB Objective - Vital Signs/Intake and Output Vital Signs (last 24 hours): Temp Pulse Resp BP Pulse Ox 97.2 F L 76 20 136/85 96 05/26/18 07:15 05/26/18 07:15 05/26/18 07:15 05/26/18 09:16 05/26/18 07:15 - Medications Medications: Current Medications Aspirin (Aspirin Chewable) 81 mg PO DAILY [facility] Last Admin: 05/26/18 09:16 Dose: 81 mg Carvedilol (Coreg) 3.125 mg PO BID [facility] Last Admin: 05/26/18 09:15 Dose: 3.125 mg Docusate Sodium (Colace) 100 mg PO DAILY [facility] Last Admin: 05/26/18 09:16 Dose: 100 mg Enoxaparin Sodium (Lovenox) 40 mg SC DAILY [facility] Last Admin: 05/26/18 09:16 Dose: 40 mg Furosemide (Lasix) 40 mg IVP BID [facility] Last Admin: 05/26/18 09:16 Dose: 40 mg Vancomycin HCl 1 gm/ Sodium (Chloride) 250 mls @ 166.7 mls/hr IVPB Q24H [facility]; Protocol Pantoprazole Sodium (Protonix Ec Tab) 40 mg PO DAILY [facility] Last Admin: 05/26/18 09:16 Dose: 40 mg Promethazine HCl/Dextromethorphan (Phenergan Dm Syrup) 10 ml PO TID PRN PRN Reason: Cough Last Admin: 05/25/18 16:52 Dose: 10 ml Rosuvastatin Calcium (Crestor) 5 mg PO HS [facility] Last Admin: 05/25/18 22:00 Dose: Not Given Sacubitril/Valsartan (Entresto 24 Mg-26 Mg) 1 tab PO 0800,1999 [facility] Last Admin: 05/26/18 09:18 Dose: 1 tab - Labs Labs: 05/22/18 14:10 05/22/18 14:10 PT 15.6 SECONDS (9.7-12.2) H 05/22/18 14:10 INR 1.4 05/22/18 14:10 APTT 35 SECONDS (21-34) H 05/22/18 14:10 - Constitutional Appears: Well, Non-toxic, No Acute Distress - Extremities Exam Additional comments: LLE focused exam: dressing clean, dry and intact with no strikethrough CFT < 3 seconds to all digits - Neurological Exam Neurological Exam: Alert, Awake, Oriented x3 - Psychiatric Exam Psychiatric exam: Normal Affect, Normal Mood Assessment and Plan - Assessment and Plan (Free Text) Assessment: 68 y/o male with left leg open wound and right leg blistering Plan: Patient seen and evaluated with Dr. Montoya Absent leukocytosis at this time Wound dressing remains in place, to be changed later No plan for surgical intervention at this time Podiatry will continue to follow while patient in house
--- NOTE | 2018-05-26 18:31 | CARD ---
APPROVED REPORT Date of service: 05/22/2018 EKG Measurement Heart [id number] <Conclusion> Ventricular-paced rhythm Abnormal ECG
--- NOTE | 2018-05-26 18:35 | CP.PCM.PN ---
Subjective - Date & Time of Evaluation Date of Evaluation: 05/26/18 Time of Evaluation: 18:34 - Subjective Subjective: Patient has less dyspnea Objective - Vital Signs/Intake and Output Vital Signs (last 24 hours): Temp Pulse Resp BP Pulse Ox 97.9 F 84 20 116/75 94 L 05/26/18 15:00 05/26/18 15:00 05/26/18 15:00 05/26/18 17:30 05/26/18 15:00 - Medications Medications: Current Medications Aspirin (Aspirin Chewable) 81 mg PO DAILY [facility] Last Admin: 05/26/18 09:16 Dose: 81 mg Carvedilol (Coreg) 3.125 mg PO BID [facility] Last Admin: 05/26/18 17:30 Dose: 3.125 mg Docusate Sodium (Colace) 100 mg PO DAILY [facility] Last Admin: 05/26/18 09:16 Dose: 100 mg Furosemide (Lasix) 40 mg IVP BID [facility] Last Admin: 05/26/18 17:30 Dose: 40 mg Vancomycin HCl 1 gm/ Sodium (Chloride) 250 mls @ 166.7 mls/hr IVPB Q24H [facility]; Protocol Last Admin: 05/26/18 14:16 Dose: 166.7 mls/hr Pantoprazole Sodium (Protonix Ec Tab) 40 mg PO DAILY [facility] Last Admin: 05/26/18 09:16 Dose: 40 mg Promethazine HCl/Dextromethorphan (Phenergan Dm Syrup) 10 ml PO TID PRN PRN Reason: Cough Last Admin: 05/25/18 16:52 Dose: 10 ml Rosuvastatin Calcium (Crestor) 5 mg PO HS [facility] Last Admin: 05/25/18 22:00 Dose: Not Given Sacubitril/Valsartan (Entresto 24 Mg-26 Mg) 1 tab PO 00,1999 [facility] Last Admin: 05/26/18 09:18 Dose: 1 tab - Labs Labs: 05/22/18 14:10 05/22/18 14:10 PT 15.6 SECONDS (9.7-12.2) H 05/22/18 14:10 INR 1.4 05/22/18 14:10 APTT 35 SECONDS (21-34) H 05/22/18 14:10 - Constitutional Appears: Non-toxic - Head Exam Head Exam: NORMAL INSPECTION - Eye Exam Eye Exam: Normal appearance - ENT Exam ENT Exam: Mucous Membranes Moist - Neck Exam Neck Exam: Full ROM - Respiratory Exam Respiratory Exam: Decreased Breath Sounds - Cardiovascular Exam Cardiovascular Exam: REGULAR RHYTHM - GI/Abdominal Exam GI & Abdominal Exam: Normal Bowel Sounds - Rectal Exam Rectal Exam: Deferred - Extremities Exam Extremities Exam: Pedal Edema - Back Exam Back Exam: NORMAL INSPECTION - Neurological Exam Neurological Exam: Alert - Psychiatric Exam Psychiatric exam: Normal Affect - Skin Skin Exam: Normal Color Assessment and Plan (1) Acute on chronic systolic and diastolic heart failure, NYHA class 2 Assessment & Plan: continue diuretic therapy. on Entresto Status: Acute (2) CAD (coronary artery disease) Status: Acute (3) Hypertension Assessment & Plan: blood pressure control Status: Chronic
--- NOTE | 2018-05-26 20:09 | CP.PCM.PN ---
Subjective - Date & Time of Evaluation Date of Evaluation: 05/26/18 Time of Evaluation: 08:00 - Subjective Subjective: clinically same Objective - Vital Signs/Intake and Output Vital Signs (last 24 hours): Temp Pulse Resp BP Pulse Ox 97.9 F 84 20 116/75 94 L 05/26/18 15:00 05/26/18 15:00 05/26/18 15:00 05/26/18 17:30 05/26/18 15:00 - Medications Medications: Current Medications Aspirin (Aspirin Chewable) 81 mg PO DAILY [facility] Last Admin: 05/26/18 09:16 Dose: 81 mg Carvedilol (Coreg) 3.125 mg PO BID [facility] Last Admin: 05/26/18 17:30 Dose: 3.125 mg Docusate Sodium (Colace) 100 mg PO DAILY [facility] Last Admin: 05/26/18 09:16 Dose: 100 mg Furosemide (Lasix) 40 mg IVP BID [facility] Last Admin: 05/26/18 17:30 Dose: 40 mg Vancomycin HCl 1 gm/ Sodium (Chloride) 250 mls @ 166.7 mls/hr IVPB Q24H [facility]; Protocol Last Admin: 05/26/18 14:16 Dose: 166.7 mls/hr Pantoprazole Sodium (Protonix Ec Tab) 40 mg PO DAILY [facility] Last Admin: 05/26/18 09:16 Dose: 40 mg Promethazine HCl/Dextromethorphan (Phenergan Dm Syrup) 10 ml PO TID PRN PRN Reason: Cough Last Admin: 05/25/18 16:52 Dose: 10 ml Rosuvastatin Calcium (Crestor) 5 mg PO HS [facility] Last Admin: 05/25/18 22:00 Dose: Not Given Sacubitril/Valsartan (Entresto 24 Mg-26 Mg) 1 tab PO 0800,1999 [facility] Last Admin: 05/26/18 09:18 Dose: 1 tab - Labs Labs: 05/22/18 14:10 05/22/18 14:10 PT 15.6 SECONDS (9.7-12.2) H 05/22/18 14:10 INR 1.4 05/22/18 14:10 APTT 35 SECONDS (21-34) H 05/22/18 14:10 - Constitutional Appears: Well - Head Exam Head Exam: ATRAUMATIC, NORMAL INSPECTION, NORMOCEPHALIC - Eye Exam Eye Exam: EOMI, Normal appearance, PERRL Pupil Exam: NORMAL ACCOMODATION, PERRL - ENT Exam ENT Exam: Mucous Membranes Moist, Normal Exam - Neck Exam Neck Exam: Full ROM, Normal Inspection. absent: Lymphadenopathy - Respiratory Exam Respiratory Exam: Decreased Breath Sounds - Cardiovascular Exam Cardiovascular Exam: REGULAR RHYTHM, +S1, +S2 - GI/Abdominal Exam GI & Abdominal Exam: Soft, Diminished Bowel Sounds - Rectal Exam Rectal Exam: Deferred
[2018-05-26] MEDS: Promethazine DM 12.5 mg-30 mg/10 ml Syrup PO PRN (23:19)
[2018-05-27 07:46] LABS: BASO % 0.6 % (0.0-2.0); EOS # 0.2 K/uL (0.0-0.7); EOS % 2.9 % (0.0-4.0); HEMOGLOBIN 8.3 g/dL (12.0-18.0); LYMPH # 1.1 K/uL (1.0-4.3); LYMPH % 19.1 % (20.0-40.0); MEAN CELL VOLUME 81.1 fL (80.0-94.0); MEAN CORPUSCULAR HEMOGLOBIN 24.3 pg (27.0-31.0); MEAN CORPUSCULAR HGB CONC 29.9 g/dL (33.0-37.0); MEAN PLATELET VOLUME 7.9 fL (7.2-11.7); MONO # 0.9 K/uL (0.0-0.8); NEUT # 3.6 K/uL (1.8-7.0); NEUT % 61.4 % (50.0-75.0); NRBC % 0.1 % (0.0-2.0); RBC 3.42 Mil/uL (4.40-5.90); RED CELL DISTRIBUTION WIDTH 20.4 % (11.5-14.5); WHITE BLOOD COUNT 5.9 K/uL (4.8-10.8)
[2018-05-27] MEDS: Sacubitril/Valsartan 24-26mg Tab PO SCH ×2 (08:00→20:50)
[2018-05-27 08:01] LABS: ALB/GLOB RATIO 0.9 (1.0-2.1); ALBUMIN 4.1 g/dL (3.5-5.0); ALT/SGPT 10 U/L (21-72); AST/SGOT 25 U/L (17-59); BLOOD UREA NITROGEN 24 mg/dL (9-20); CALCIUM 7.9 mg/dl (8.6-10.4); GFR NON-AFRICAN AMERICAN 55
[2018-05-27] MEDS ORDERED: Lidocaine Hydrochloride 5 ML INJ ONE (08:11)
--- NOTE | 2018-05-27 08:34 | PCM.SURG1 ---
Surgeon's Initial Post Op Note - Surgeon's Notes Surgeon: Som Randle Relief Worker: None Type of Anesthesia: Local Pre-Operative Diagnosis: Ascites Operative Findings: US showed small amount of ascites. Post-Operative Diagnosis: Ascites Operation Performed: US guided paracentesis Specimen/Specimens Removed: 400 cc of straw colored fluid Estimated Blood Loss: EBL {In ML}: 1 Drains Used: No Drains Post-Op Condition: Fair Date of Surgery/Procedure: 05/27/18 Time of Surgery/Procedure: 08:35
[2018-05-27] MEDS: Pantoprazole 40 mg EC Tab PO SCH (09:55)
--- NOTE | 2018-05-27 11:25 | CP.PCM.PN ---
Subjective - Date & Time of Evaluation Date of Evaluation: 05/27/18 Time of Evaluation: 09:00 - Subjective Subjective: less sob s/p paracentesis cultures pending left leg wound dry Objective - Vital Signs/Intake and Output Vital Signs (last 24 hours): Temp Pulse Resp BP Pulse Ox 97.3 F L 77 20 133/75 93 L 05/27/18 09:11 05/27/18 09:11 05/27/18 09:11 05/27/18 09:32 05/27/18 09:11 Intake and Output: 05/27/18 05/27/18 06:59 18:59 Intake Total 720 Output Total 800 Balance -80 - Medications Medications: Current Medications Aspirin (Aspirin Chewable) 81 mg PO DAILY [facility] Last Admin: 05/27/18 09:55 Dose: 81 mg Carvedilol (Coreg) 3.125 mg PO BID [facility] Last Admin: 05/27/18 09:55 Dose: 3.125 mg Docusate Sodium (Colace) 100 mg PO DAILY [facility] Last Admin: 05/27/18 09:55 Dose: 100 mg Furosemide (Lasix) 40 mg IVP BID [facility] Last Admin: 05/27/18 09:32 Dose: 40 mg Vancomycin HCl 1.5 gm/ Sodium (Chloride) 250 mls @ 166.7 mls/hr IVPB Q24H [facility]; Protocol Pantoprazole Sodium (Protonix Ec Tab) 40 mg PO DAILY [facility] Last Admin: 05/27/18 09:55 Dose: 40 mg Promethazine HCl/Dextromethorphan (Phenergan Dm Syrup) 10 ml PO TID PRN PRN Reason: Cough Last Admin: 05/26/18 23:19 Dose: 10 ml Rosuvastatin Calcium (Crestor) 5 mg PO HS [facility] Last Admin: 05/26/18 21:24 Dose: 5 mg Sacubitril/Valsartan (Entresto 24 Mg-26 Mg) 1 tab PO 799,1999 [facility] Last Admin: 05/27/18 08:00 Dose: 1 tab - Labs Labs: 05/27/18 07:27 05/27/18 07:27 PT 15.6 SECONDS (9.7-12.2) H 05/22/18 14:10 INR 1.4 05/22/18 14:10 APTT 35 SECONDS (21-34) H 05/22/18 14:10 - Constitutional Appears: Well - Head Exam Head Exam: ATRAUMATIC, NORMAL INSPECTION, NORMOCEPHALIC - Eye Exam Eye Exam: EOMI, Normal appearance, PERRL Pupil Exam: NORMAL ACCOMODATION, PERRL - ENT Exam ENT Exam: Mucous Membranes Moist, Normal Exam - Neck Exam Neck Exam: Full ROM, Normal Inspection. absent: Lymphadenopathy - Respiratory Exam Respiratory Exam: Clear to Ausculation Bilateral, NORMAL BREATHING PATTERN - Cardiovascular Exam Cardiovascular Exam: REGULAR RHYTHM, +S1, +S2. absent: Murmur - GI/Abdominal Exam GI & Abdominal Exam: Distended, Soft, Diminished Bowel Sounds. absent: Tenderness - Rectal Exam Rectal Exam: Deferred - Exam Exam: NORMAL INSPECTION External exam: Ecchymosis, Erythema, Lacerations, Lesions, NORMAL EXTERNAL EXAM, Swelling - Extremities Exam Extremities Exam: Full ROM, Normal Capillary Refill, Normal Inspection. absent: Joint Swelling, Pedal Edema - Back Exam Back Exam: NORMAL INSPECTION - Neurological Exam Neurological Exam: Alert, Awake, CN II-XII Intact, Normal Gait, Oriented x3 - Psychiatric Exam Psychiatric exam: Normal Affect, Normal Mood - Skin Skin Exam: Dry, Intact, Normal Color, Warm Assessment and Plan (1) MRSA infection Status: Acute (2) Acute on chronic systolic and diastolic heart failure, NYHA class 2 Status: Acute (3) CAD (coronary artery disease) Status: Acute (4) HELENE (acute kidney injury) Status: Acute (5) ALC (alcoholic liver cirrhosis) Status: Acute (6) Abdominal distension Status: Acute (7) Anemia Status: Acute (8) Ascites Status: Acute (9) COPD (chronic obstructive pulmonary disease) Status: Acute - Assessment and Plan (Free Text) Assessment: CHF COPD Cellulitis Left leg Cirrhosis with ascites consider hepatobilliary eval optimize medical rx IV antibiotics
--- NOTE | 2018-05-27 13:43 | RAD ---
Date of service: 05/27/2018 HISTORY: PICC placement COMPARISON: 05/22/2018 FINDINGS: LUNGS: Inferred left basal mild compressive atelectasis along with a left pleural effusion. Concomitant underlying infiltrate not excluded. Left pleural effusion and opacity here appears greater now than before. Right pleural effusion with lesser passive compressive atelectasis-similar also noted. PLEURA: Bilateral pleural effusions as referenced above. No pneumothorax seen. CARDIOVASCULAR: There is presence of aortic atherosclerotic calcification on x-ray. Cardiomegaly-similar pulmonary venous congestion slightly increased since prior study and/or accentuated due to differences in technique. Interval right PICC line insertion tip at brachiocephalic/superior vena cava confluence. Clinical follow-up recommended. AICD device in place as before. OSSEOUS STRUCTURES: Mild thoraco lumbar spondylosis. Slight rightward thoracic convexity-similar. VISUALIZED UPPER ABDOMEN: Normal. OTHER FINDINGS: None. IMPRESSION: Interval PICC line insertion-tip at brachiocephalic/superior vena cava confluence. Clinical follow-up recommended. No pneumothorax seen. Interval increased size left pleural effusion with inferred subsegmental compressive atelectatic changes as well. Findings are referenced above. The smaller right-sided pleural effusion and its smaller inferred compressive atelectatic component similar-appearing. Cardiomegaly and AICD device in place as before. Pulmonary venous congestion slightly increased since prior exam.
[2018-05-27] MEDS: Vancomycin 1.5 GM in Sodium Chloride 0.9% 500 ML IVPB SCH (14:09)
--- NOTE | 2018-05-27 14:55 | CP.PCM.PN ---
Subjective - Date & Time of Evaluation Date of Evaluation: 05/27/18 Time of Evaluation: 07:45 - Subjective Subjective: clinically same Objective - Vital Signs/Intake and Output Vital Signs (last 24 hours): Temp Pulse Resp BP Pulse Ox 97.3 F L 77 20 133/75 93 L 05/27/18 09:11 05/27/18 09:11 05/27/18 09:11 05/27/18 09:32 05/27/18 09:11 Intake and Output: 05/27/18 05/27/18 06:59 18:59 Intake Total 720 1000 Output Total 800 Balance -80 1000 - Medications Medications: Current Medications Aspirin (Aspirin Chewable) 81 mg PO DAILY [facility] Last Admin: 05/27/18 09:55 Dose: 81 mg Carvedilol (Coreg) 3.125 mg PO BID [facility] Last Admin: 05/27/18 09:55 Dose: 3.125 mg Docusate Sodium (Colace) 100 mg PO DAILY [facility] Last Admin: 05/27/18 09:55 Dose: 100 mg Furosemide (Lasix) 40 mg IVP BID [facility] Last Admin: 05/27/18 09:32 Dose: 40 mg Vancomycin HCl 1.5 gm/ Sodium (Chloride) 500 mls @ 166.7 mls/hr IVPB Q24H [facility]; Protocol Last Admin: 05/27/18 14:09 Dose: 166.7 mls/hr Pantoprazole Sodium (Protonix Ec Tab) 40 mg PO DAILY [facility] Last Admin: 05/27/18 09:55 Dose: 40 mg Promethazine HCl/Dextromethorphan (Phenergan Dm Syrup) 10 ml PO TID PRN PRN Reason: Cough Last Admin: 05/26/18 23:19 Dose: 10 ml Rosuvastatin Calcium (Crestor) 5 mg PO HS [facility] Last Admin: 05/26/18 21:24 Dose: 5 mg Sacubitril/Valsartan (Entresto 24 Mg-26 Mg) 1 tab PO 799,1999 [facility] Last Admin: 05/27/18 08:00 Dose: 1 tab - Labs Labs: 05/27/18 07:27 05/27/18 07:27 PT 15.6 SECONDS (9.7-12.2) H 05/22/18 14:10 INR 1.4 05/22/18 14:10 APTT 35 SECONDS (21-34) H 05/22/18 14:10
--- NOTE | 2018-05-27 19:32 | CP.PCM.PN ---
Subjective - Date & Time of Evaluation Date of Evaluation: 05/27/18 Time of Evaluation: 18:45 - Subjective Subjective: patient denies chest pain. Has less dyspnea. s/p paracentesis. Objective - Vital Signs/Intake and Output Vital Signs (last 24 hours): Temp Pulse Resp BP Pulse Ox 97.5 F L 78 20 127/76 94 L 05/27/18 15:04 05/27/18 15:04 05/27/18 15:04 05/27/18 17:40 05/27/18 15:04 Intake and Output: 05/27/18 05/28/18 18:59 06:59 Intake Total 1000 Balance 1000 - Medications Medications: Current Medications Aspirin (Aspirin Chewable) 81 mg PO DAILY [facility] Last Admin: 05/27/18 09:55 Dose: 81 mg Carvedilol (Coreg) 3.125 mg PO BID [facility] Last Admin: 05/27/18 17:31 Dose: 3.125 mg Docusate Sodium (Colace) 100 mg PO DAILY [facility] Last Admin: 05/27/18 09:55 Dose: 100 mg Furosemide (Lasix) 40 mg IVP BID [facility] Last Admin: 05/27/18 17:40 Dose: 40 mg Vancomycin HCl 1.5 gm/ Sodium (Chloride) 500 mls @ 166.7 mls/hr IVPB Q24H [facility]; Protocol Last Admin: 05/27/18 14:09 Dose: 166.7 mls/hr Pantoprazole Sodium (Protonix Ec Tab) 40 mg PO DAILY [facility] Last Admin: 05/27/18 09:55 Dose: 40 mg Promethazine HCl/Dextromethorphan (Phenergan Dm Syrup) 10 ml PO TID PRN PRN Reason: Cough Last Admin: 05/26/18 23:19 Dose: 10 ml Rosuvastatin Calcium (Crestor) 5 mg PO HS [facility] Last Admin: 05/26/18 21:24 Dose: 5 mg Sacubitril/Valsartan (Entresto 24 Mg-26 Mg) 1 tab PO 0800,1999 [facility] Last Admin: 05/27/18 08:00 Dose: 1 tab - Labs Labs: 05/27/18 07:27 05/27/18 07:27 PT 15.6 SECONDS (9.7-12.2) H 05/22/18 14:10 INR 1.4 05/22/18 14:10 APTT 35 SECONDS (21-34) H 05/22/18 14:10 - Constitutional Appears: Non-toxic - Head Exam Head Exam: NORMAL INSPECTION - Eye Exam Eye Exam: Normal appearance - ENT Exam ENT Exam: Mucous Membranes Moist - Neck Exam Neck Exam: Full ROM - Respiratory Exam Respiratory Exam: Decreased Breath Sounds - Cardiovascular Exam Cardiovascular Exam: REGULAR RHYTHM - GI/Abdominal Exam GI & Abdominal Exam: Normal Bowel Sounds - Rectal Exam Rectal Exam: Deferred - Extremities Exam Extremities Exam: Pedal Edema - Back Exam Back Exam: NORMAL INSPECTION - Neurological Exam Neurological Exam: Alert, Oriented x3 - Psychiatric Exam Psychiatric exam: Normal Affect - Skin Skin Exam: Normal Color Assessment and Plan (1) Acute on chronic systolic and diastolic heart failure, NYHA class 2 Assessment & Plan: improving. continue diuresis Status: Acute (2) CAD (coronary artery disease) Assessment & Plan: no current angina. medical therapy Status: Acute (3) Hypertension Assessment & Plan: blood pressure control Status: Chronic
[2018-05-28 01:11] VITALS: O2SAT 95
[2018-05-28] MEDS: Promethazine DM 12.5 mg-30 mg/10 ml Syrup PO PRN (01:49)
[2018-05-28] MEDS: Sacubitril/Valsartan 24-26mg Tab PO SCH (08:53)
[2018-05-28] MEDS: Pantoprazole 40 mg EC Tab PO SCH (10:12)
--- NOTE | 2018-05-28 12:15 | CP.PCM.PN ---
<Maria Elena Cleveland - Last Filed: 05/28/18 16:57> Subjective - Date & Time of Evaluation Date of Evaluation: 05/28/18 Time of Evaluation: 12:15 - Subjective Subjective: Podiatry Progress Note - Dr. Montoya 68 y/o male seen and evaluated at bedside this morning for left leg ulcers. States he is feeling well today. Wonders if the infection is looking better and healing. Has no new pedal complaints. Denies F/C/N/V/CP/SOB Objective - Vital Signs/Intake and Output Vital Signs (last 24 hours): Temp Pulse Resp BP Pulse Ox 97.4 F L 85 20 131/81 95 05/28/18 07:28 05/28/18 07:28 05/28/18 07:28 05/28/18 09:03 05/28/18 07:28 Intake and Output: 05/28/18 05/28/18 06:59 18:59 Intake Total 700 Balance 700 - Medications Medications: Current Medications Aspirin (Aspirin Chewable) 81 mg PO DAILY [facility] Last Admin: 05/28/18 10:12 Dose: 81 mg Carvedilol (Coreg) 3.125 mg PO BID [facility] Last Admin: 05/28/18 10:12 Dose: 3.125 mg Docusate Sodium (Colace) 100 mg PO DAILY [facility] Last Admin: 05/28/18 10:12 Dose: 100 mg Furosemide (Lasix) 40 mg IVP BID [facility] Last Admin: 05/28/18 09:03 Dose: 40 mg Vancomycin HCl 1.5 gm/ Sodium (Chloride) 500 mls @ 166.7 mls/hr IVPB Q24H [facility]; Protocol Last Admin: 05/27/18 14:09 Dose: 166.7 mls/hr Pantoprazole Sodium (Protonix Ec Tab) 40 mg PO DAILY [facility] Last Admin: 05/28/18 10:12 Dose: 40 mg Promethazine HCl/Dextromethorphan (Phenergan Dm Syrup) 10 ml PO TID PRN PRN Reason: Cough Last Admin: 05/28/18 01:49 Dose: 10 ml Rosuvastatin Calcium (Crestor) 5 mg PO HS [facility] Last Admin: 05/27/18 21:43 Dose: 5 mg Sacubitril/Valsartan (Entresto 24 Mg-26 Mg) 1 tab PO 0800,1999 [facility] Last Admin: 05/28/18 08:53 Dose: 1 tab - Labs Labs: 05/27/18 07:27 05/27/18 07:27 PT 15.6 SECONDS (9.7-12.2) H 05/22/18 14:10 INR 1.4 05/22/18 14:10 APTT 35 SECONDS (21-34) H 05/22/18 14:10 - Constitutional Appears: Well, Non-toxic, No Acute Distress - Extremities Exam Additional comments: LLE focused exam: Vasc: DP/PT pulses faintly palpable 1/4. Skin temperature warm to warm from proximal to distal WNL. CFT < 3 seconds to all digits. Moderate edema noted diffusely Neuro: Epicritic and protective sensation grossly diminished Derm: 1 cm x 1 cm x 0.2 cm ulceration noted to medial aspect of left leg with mixed fibrogranular wound base. No active drainage noted. No malodor, purulence, tracking, tunneling or undermining appreciated. No other clinical signs of infection noted. Blistering noted to anterior right leg without any lysing appreciated MSK: No pain on palpation to ulceration site. No gross deformities noted - Neurological Exam Neurological Exam: Alert, Awake, Oriented x3 - Psychiatric Exam Psychiatric exam: Normal Affect, Normal Mood Assessment and Plan - Assessment and Plan (Free Text) Assessment: 68 y/o male with left leg wound and right leg blistering Plan: Patient seen and evaluated at bedside Discussed with Dr. Montoya Wound cx L leg + MRSA Continue IV abx per ID Wound dressed with xeroform, DSD, and JUANITA bandage No plan for surgical intervention at this time Pt stable for discharge from podiatry standpoint, to f/u with Dr. Montoya as outpatient Podiatry will continue to follow while patient in house <Camilo Montoya - Last Filed: 05/28/18 18:00> Objective - Vital Signs/Intake and Output Vital Signs (last 24 hours): Temp Pulse Resp BP Pulse Ox 97.7 F 78 20 112/68 95 05/28/18 16:00 05/28/18 16:00 05/28/18 16:00 05/28/18 17:44 05/28/18 16:00 Intake and Output: 05/28/18 05/28/18 06:59 18:59 Intake Total 700 400 Balance 700 400 - Medications Medications: Current Medications Aspirin (Aspirin Chewable) 81 mg PO DAILY [facility] Last Admin: 05/28/18 10:12 Dose: 81 mg Carvedilol (Coreg) 3.125 mg PO BID [facility] Last Admin: 05/28/18 17:44 Dose: 3.125 mg Docusate Sodium (Colace) 100 mg PO DAILY [facility] Last Admin: 05/28/18 10:12 Dose: 100 mg Furosemide (Lasix) 40 mg IVP BID [facility] Last Admin: 05/28/18 17:44 Dose: 40 mg Vancomycin HCl 1.5 gm/ Sodium (Chloride) 500 mls @ 166.7 mls/hr IVPB Q24H [facility]; Protocol Last Admin: 05/28/18 13:55 Dose: 166.7 mls/hr Pantoprazole Sodium (Protonix Ec Tab) 40 mg PO DAILY [facility] Last Admin: 05/28/18 10:12 Dose: 40 mg Promethazine HCl/Dextromethorphan (Phenergan Dm Syrup) 10 ml PO TID PRN PRN Reason: Cough Last Admin: 05/28/18 01:49 Dose: 10 ml Rosuvastatin Calcium (Crestor) 5 mg PO HS [facility] Last Admin: 05/27/18 21:43 Dose: 5 mg Sacubitril/Valsartan (Entresto 24 Mg-26 Mg) 1 tab PO 0800,1999 [facility] Last Admin: 05/28/18 08:53 Dose: 1 tab - Labs Labs: 05/27/18 07:27 05/27/18 07:27 PT 15.6 SECONDS (9.7-12.2) H 05/22/18 14:10 INR 1.4 05/22/18 14:10 APTT 35 SECONDS (21-34) H 05/22/18 14:10 Assessment and Plan - Assessment and Plan (Free Text) Plan: patient seen at bedside this PM . agree with above . continue local wound care . discussed with Dr Mahajan . awaiting placement in sub acute rehab .
--- NOTE | 2018-05-28 13:17 | US ---
Date of Procedure: 05/27/2018 PROCEDURE: Ultrasound-guided paracentesis, CPT 27209 Medications: 7 cc 1% Lidocaine HISTORY: Ascites, abdominal distention TECHNIQUE: Following informed consent , the patient was placed supine on the stretcher and the site was marked. A limited abdominal ultrasound was performed that showed a small amount amount of intra-abdominal fluid. Procedural time out was called and the Pt's abdomen was marked and prepped and draped in the usual sterile fashion. Ultrasound-guided large volume paracentesis performed. A total of 400 cc of straw colored fluid was removed without complication. IMPRESSION: Ultrasound showed a small amount of intra-abdominal fluid. Ultrasound-guided paracentesis performed.
[2018-05-28] MEDS: Vancomycin 1.5 GM in Sodium Chloride 0.9% 500 ML IVPB SCH (13:55)
--- NOTE | 2018-05-28 14:07 | CP.PCM.PN ---
Objective - Vital Signs/Intake and Output Vital Signs (last 24 hours): Temp Pulse Resp BP Pulse Ox 97.4 F L 85 20 131/81 95 05/28/18 07:28 05/28/18 07:28 05/28/18 07:28 05/28/18 09:03 05/28/18 07:28 Intake and Output: 05/28/18 05/28/18 06:59 18:59 Intake Total 700 Balance 700 - Medications Medications: Current Medications Aspirin (Aspirin Chewable) 81 mg PO DAILY [facility] Last Admin: 05/28/18 10:12 Dose: 81 mg Carvedilol (Coreg) 3.125 mg PO BID [facility] Last Admin: 05/28/18 10:12 Dose: 3.125 mg Docusate Sodium (Colace) 100 mg PO DAILY [facility] Last Admin: 05/28/18 10:12 Dose: 100 mg Furosemide (Lasix) 40 mg IVP BID [facility] Last Admin: 05/28/18 09:03 Dose: 40 mg Vancomycin HCl 1.5 gm/ Sodium (Chloride) 500 mls @ 166.7 mls/hr IVPB Q24H [facility]; Protocol Last Admin: 05/28/18 13:55 Dose: 166.7 mls/hr Pantoprazole Sodium (Protonix Ec Tab) 40 mg PO DAILY [facility] Last Admin: 05/28/18 10:12 Dose: 40 mg Promethazine HCl/Dextromethorphan (Phenergan Dm Syrup) 10 ml PO TID PRN PRN Reason: Cough Last Admin: 05/28/18 01:49 Dose: 10 ml Rosuvastatin Calcium (Crestor) 5 mg PO HS [facility] Last Admin: 05/27/18 21:43 Dose: 5 mg Sacubitril/Valsartan (Entresto 24 Mg-26 Mg) 1 tab PO 0800,1999 [facility] Last Admin: 05/28/18 08:53 Dose: 1 tab - Labs Labs: 05/27/18 07:27 05/27/18 07:27 PT 15.6 SECONDS (9.7-12.2) H 05/22/18 14:10 INR 1.4 05/22/18 14:10 APTT 35 SECONDS (21-34) H 05/22/18 14:10
--- NOTE | 2018-05-28 14:20 | CP.PCM.PN ---
Subjective - Date & Time of Evaluation Date of Evaluation: 05/28/18 Time of Evaluation: 07:30 - Subjective Subjective: clinically same Objective - Vital Signs/Intake and Output Vital Signs (last 24 hours): Temp Pulse Resp BP Pulse Ox 97.4 F L 85 20 131/81 95 05/28/18 07:28 05/28/18 07:28 05/28/18 07:28 05/28/18 09:03 05/28/18 07:28 Intake and Output: 05/28/18 05/28/18 06:59 18:59 Intake Total 700 400 Balance 700 400 - Medications Medications: Current Medications Aspirin (Aspirin Chewable) 81 mg PO DAILY [facility] Last Admin: 05/28/18 10:12 Dose: 81 mg Carvedilol (Coreg) 3.125 mg PO BID [facility] Last Admin: 05/28/18 10:12 Dose: 3.125 mg Docusate Sodium (Colace) 100 mg PO DAILY [facility] Last Admin: 05/28/18 10:12 Dose: 100 mg Furosemide (Lasix) 40 mg IVP BID [facility] Last Admin: 05/28/18 09:03 Dose: 40 mg Vancomycin HCl 1.5 gm/ Sodium (Chloride) 500 mls @ 166.7 mls/hr IVPB Q24H [facility]; Protocol Last Admin: 05/28/18 13:55 Dose: 166.7 mls/hr Pantoprazole Sodium (Protonix Ec Tab) 40 mg PO DAILY [facility] Last Admin: 05/28/18 10:12 Dose: 40 mg Promethazine HCl/Dextromethorphan (Phenergan Dm Syrup) 10 ml PO TID PRN PRN Reason: Cough Last Admin: 05/28/18 01:49 Dose: 10 ml Rosuvastatin Calcium (Crestor) 5 mg PO HS [facility] Last Admin: 05/27/18 21:43 Dose: 5 mg Sacubitril/Valsartan (Entresto 24 Mg-26 Mg) 1 tab PO 799,1999 [facility] Last Admin: 05/28/18 08:53 Dose: 1 tab - Labs Labs: 05/27/18 07:27 05/27/18 07:27 PT 15.6 SECONDS (9.7-12.2) H 05/22/18 14:10 INR 1.4 05/22/18 14:10 APTT 35 SECONDS (21-34) H 05/22/18 14:10 - Constitutional Appears: Well - Head Exam Head Exam: ATRAUMATIC, NORMAL INSPECTION, NORMOCEPHALIC - Eye Exam Eye Exam: EOMI, Normal appearance, PERRL Pupil Exam: NORMAL ACCOMODATION, PERRL - ENT Exam ENT Exam: Mucous Membranes Moist, Normal Exam - Neck Exam Neck Exam: Full ROM, Normal Inspection. absent: Lymphadenopathy - Respiratory Exam Respiratory Exam: Decreased Breath Sounds - Cardiovascular Exam Cardiovascular Exam: REGULAR RHYTHM, +S1, +S2 - GI/Abdominal Exam GI & Abdominal Exam: Soft, Diminished Bowel Sounds - Rectal Exam Rectal Exam: Deferred
[2018-05-28] MEDS ORDERED: Influenza Vaccine 60 mcg/0.5 mL SYR (4YR UP) IM ONE (16:15)
[2018-05-28 16:45] VITALS: PULSE 78; TEMP 97.7
[2018-05-28 17:45] VITALS: BP 112/68
--- NOTE | 2018-05-28 18:02 | CP.PCM.PN ---
Subjective - Date & Time of Evaluation Date of Evaluation: 05/28/18 Time of Evaluation: 05:00 - Subjective Subjective: afeb IV rx in progress Objective - Vital Signs/Intake and Output Vital Signs (last 24 hours): Temp Pulse Resp BP Pulse Ox 97.7 F 78 20 112/68 95 05/28/18 16:00 05/28/18 16:00 05/28/18 16:00 05/28/18 17:44 05/28/18 16:00 Intake and Output: 05/28/18 05/28/18 06:59 18:59 Intake Total 700 400 Balance 700 400 - Medications Medications: Current Medications Aspirin (Aspirin Chewable) 81 mg PO DAILY [facility] Last Admin: 05/28/18 10:12 Dose: 81 mg Carvedilol (Coreg) 3.125 mg PO BID [facility] Last Admin: 05/28/18 17:44 Dose: 3.125 mg Docusate Sodium (Colace) 100 mg PO DAILY [facility] Last Admin: 05/28/18 10:12 Dose: 100 mg Furosemide (Lasix) 40 mg IVP BID [facility] Last Admin: 05/28/18 17:44 Dose: 40 mg Vancomycin HCl 1.5 gm/ Sodium (Chloride) 500 mls @ 166.7 mls/hr IVPB Q24H [facility]; Protocol Last Admin: 05/28/18 13:55 Dose: 166.7 mls/hr Pantoprazole Sodium (Protonix Ec Tab) 40 mg PO DAILY [facility] Last Admin: 05/28/18 10:12 Dose: 40 mg Promethazine HCl/Dextromethorphan (Phenergan Dm Syrup) 10 ml PO TID PRN PRN Reason: Cough Last Admin: 05/28/18 01:49 Dose: 10 ml Rosuvastatin Calcium (Crestor) 5 mg PO HS [facility] Last Admin: 05/27/18 21:43 Dose: 5 mg Sacubitril/Valsartan (Entresto 24 Mg-26 Mg) 1 tab PO 799,1999 [facility] Last Admin: 05/28/18 08:53 Dose: 1 tab - Labs Labs: 05/27/18 07:27 05/27/18 07:27 PT 15.6 SECONDS (9.7-12.2) H 05/22/18 14:10 INR 1.4 05/22/18 14:10 APTT 35 SECONDS (21-34) H 05/22/18 14:10 Assessment and Plan (1) MRSA infection Status: Acute (2) Acute on chronic systolic and diastolic heart failure, NYHA class 2 Status: Acute (3) CAD (coronary artery disease) Status: Acute (4) HELENE (acute kidney injury) Status: Acute (5) ALC (alcoholic liver cirrhosis) Status: Acute (6) Abdominal distension Status: Acute (7) Anemia Status: Acute (8) Ascites Status: Acute (9) COPD (chronic obstructive pulmonary disease) Status: Acute
== END 2018-05-28 20:02 | DRG 299 ==
LOC: C.ER 13:07 → C.9E 15:50 → C.6T 16:08 → C.3T 05-26 09:11
PROVIDERS: ADMIT Internal Medicine Nephrology; ATTEND Internal Medicine Nephrology
PROC: 0W9G3ZX Drainage of Peritoneal Cavity, Percutaneous Approach, Diagnostic (ICD-10-PCS; principal; 2018-05-27)
DX: E11.51 Type 2 diabetes mellitus with diabetic peripheral angiopathy without gangrene (principal); I50.43 Acute on chronic combined systolic (congestive) and diastolic (congestive) heart failure; L97.929 Non-pressure chronic ulcer of unspecified part of left lower leg with unspecified severity; N17.9 Acute kidney failure, unspecified; L03.116 Cellulitis of left lower limb; I11.0 Hypertensive heart disease with heart failure; J44.9 Chronic obstructive pulmonary disease, unspecified; Z95.0 Presence of cardiac pacemaker; E78.00 Pure hypercholesterolemia, unspecified; B95.62 Methicillin resistant Staphylococcus aureus infection as the cause of diseases classified elsewhere; K70.31 Alcoholic cirrhosis of liver with ascites; D64.9 Anemia, unspecified; I25.10 Atherosclerotic heart disease of native coronary artery without angina pectoris; I50.82 Biventricular heart failure; M19.90 Unspecified osteoarthritis, unspecified site; Z87.891 Personal history of nicotine dependence; E11.622 Type 2 diabetes mellitus with other skin ulcer

== ENCOUNTER 2018-06-03 11:14 | Inpatient (IN) | payer MEDICARE, BC ==
[2018-06-03 11:14] VITALS: BMI 31.1
--- NOTE | 2018-06-03 12:18 | C.PDOC ---
History Of Present Illness 68 y/o male, w/PMhx of CHF, brought to ER by ambulance from [facility] for evaluation of shortness of breath and abdominal distention. Patient was recently evaluated for similar complaint in [facility] ER and he was admitted in [facility]. Patient states that that his abdomen is becoming mroe distended after his discharge. He notes that he has left leg wound which was positive for MRSA.Denies having CP, fever,chills, nausea, vomiting, and abdominal pain. Time Seen by Provider: 06/03/18 11:51 Chief Complaint (Nursing): Abdominal Pain History Per: Patient History/Exam Limitations: no limitations Onset/Duration Of Symptoms: Days Current Symptoms Are (Timing): Still Present Severity: Moderate Past Medical History Reviewed: Historical Data, Nursing Documentation, Vital Signs Vital Signs: Last Vital Signs Temp 97.6 F 06/03/18 11:41 Pulse 98 H 06/03/18 11:41 Resp 24 06/03/18 11:41 BP 118/69 06/03/18 11:41 Pulse Ox 86 L 06/03/18 11:41 - Medical History PMH: Arthritis, Atrial Fibrillation, CHF, COPD, Diabetes, HTN, Hypercholesterolemia, Pancreatitis (eval for possible pancreatitis) Denies: Chronic Kidney Disease Surgical History: Appendectomy, Pacemaker - [facility] Procedures ASSISTANCE WITH RESPIRATORY VENTILATION, 24-96 HRS, CPAP (01/21/17) DRAINAGE OF LEFT PLEURAL CAVITY, PERCUTANEOUS APPROACH (02/02/17) DRAINAGE OF PERITONEAL CAVITY, PERCUTANEOUS APPROACH (03/05/17) DRAINAGE OF PERITONEAL CAVITY, PERCUTANEOUS APPROACH, DIAGN (05/22/18) DRAINAGE OF RIGHT PLEURAL CAVITY, PERCUTANEOUS APPROACH (03/05/17) EXCISION OF STOMACH, ENDO, DIAGN (11/03/16) EXTRACTION OF RIGHT FOOT SKIN, EXTERNAL APPROACH (08/29/17) FLUOROSCOPY OF SUP VENA CAVA USING L OSM CONTRAST, GUIDANCE (03/05/17) INSERTION OF INFUSION DEV INTO SUP VENA CAVA, PERC APPROACH (03/05/17) INSPECTION OF LOWER INTESTINAL TRACT, ENDO (11/03/16) TRANSFUSE NONAUT RED BLOOD CELLS IN PERIPH VEIN, PERC (01/21/17) ULTRASONOGRAPHY OF SUPERIOR VENA CAVA, GUIDANCE (03/05/17) Family History: States: No Known Family Hx - Social History Hx Tobacco Use: No Hx Alcohol Use: Yes (3 glasses of wine past 3 weeks ago.) Hx Substance Use: No - Immunization History Hx Tetanus Toxoid Vaccination: No Hx Influenza Vaccination: Yes Hx Pneumococcal Vaccination: Yes Review Of Systems Except As Marked, All Systems Reviewed And Found Negative. Constitutional: Negative for: Fever, Chills Cardiovascular: Negative for: Chest Pain Respiratory: Positive for: Shortness of Breath Gastrointestinal: Positive for: Other (abdominal distention). Negative for: Nausea, Vomiting, Abdominal Pain Physical Exam - Physical Exam Appears: Non-toxic, No Acute Distress Skin: Normal Color, Warm, Dry Head: Atraumatic, Normacephalic Eye(s): bilateral: Normal Inspection Nose: Normal Oral Mucosa: Moist Neck: Supple Chest: Symmetrical Cardiovascular: Rhythm Regular Respiratory: Normal Breath Sounds, No Rales, No Rhonchi, No Wheezing Gastrointestinal/Abdominal: Soft, No Tenderness, Distention, No Guarding, No Rebound Extremity: Normal ROM, Other (bilateral lower extremity edema) Neurological/Psych: Oriented x3, Normal Speech ED Course And Treatment - Laboratory Results Result Diagrams: 06/03/18 12:32 06/03/18 12:32 O2 Sat by Pulse Oximetry: 86 Pulse Ox Interpretation: Abnormal - Other Rad CXR X-Ray: Viewed By Me, Read By Radiologist Interpretation: Date of service: 06/03/2018. PROCEDURE: CHEST RADIOGRAPH, 1 VIEW. HISTORY: SOB,. COMPARISON: 05/27/2018. FINDINGS: The right PICC line terminates in the SVC. LUNGS: There are low lung volumes. Mild pulmonary venous congestion. PLEURA: Moderate bilateral pleural effusions, larger on the right. CARDIOVASCULAR: Severe cardiomegaly. Stable position of left-sided permanent pacing device. No aortic atherosclerotic calcifications present. OSSEOUS STRUCTURES: Within normal limits for the patient's age. VISUALIZED UP PER ABDOMEN: Normal. OTHER FINDINGS: None. IMPRESSION: Worsening bilateral pleural effusions, larger on the right. Progress Note: Labs,UA,ECG, and CXR ordered. Patient treated with Lasix IV. Patient was seen by ICU attending , was cleared to go tele. Patient was accepted by . Disposition - Disposition Disposition: HOSPITALIZED Disposition Time: 15:25 Condition: FAIR - Clinical Impression Clinical Impression: CHF (congestive heart failure), Ascites, Pleural effusion, Hypoxia - PA / CREW SCHEDULER / Resident Statement MD/DO has reviewed & agrees with the documentation as recorded. - Scribe Statement The provider has reviewed the documentation as recorded by the Gopiibe Barb Tatum Provider Attestation All medical record entries made by the Gopiibandrea were at my direction and personally dictated by me. I have reviewed the chart and agree that the record accurately reflects my personal performance of the history, physical exam, medical decision making, and the department course for this patient. I have also personally directed, reviewed, and agree with the discharge instructions and disposition. Decision To Admit - Pt Status Changed To: Hospital Disposition Of: Observation - . Bed Request Type: Telemetry Admitting Physician: Alden Short Patient Diagnosis: CHF (congestive heart failure), Ascites, Pleural effusion, Hypoxia
[2018-06-03 12:51] LABS: BASO # 0.1 K/uL (0.0-0.2); BASO % 0.8 % (0.0-2.0); EOS # 0.1 K/uL (0.0-0.7); EOS % 1.8 % (0.0-4.0); HEMOGLOBIN 8.4 g/dL (12.0-18.0); LYMPH # 1.2 K/uL (1.0-4.3); LYMPH % 16.8 % (20.0-40.0); MEAN CELL VOLUME 80.6 fL (80.0-94.0); MEAN CORPUSCULAR HEMOGLOBIN 24.1 pg (27.0-31.0); MEAN CORPUSCULAR HGB CONC 29.9 g/dL (33.0-37.0); MEAN PLATELET VOLUME 8.6 fL (7.2-11.7); MONO # 1.2 K/uL (0.0-0.8); MONO % 17.1 % (0.0-10.0); NEUT # 4.5 K/uL (1.8-7.0); NEUT % 63.5 % (50.0-75.0); NRBC % 0.9 % (0.0-2.0); RBC 3.48 Mil/uL (4.40-5.90); RED CELL DISTRIBUTION WIDTH 20.1 % (11.5-14.5); WHITE BLOOD COUNT 7.1 K/uL (4.8-10.8)
[2018-06-03 12:53] LABS: INR 1.3; PROTHROMBIN TIME 14.2 SECONDS (9.7-12.2)
--- NOTE | 2018-06-03 13:04 | RAD ---
Date of service: 06/03/2018 PROCEDURE: CHEST RADIOGRAPH, 1 VIEW HISTORY: SOB, COMPARISON: 05/27/2018 FINDINGS: The right PICC line terminates in the SVC LUNGS: There are low lung volumes. Mild pulmonary venous congestion. PLEURA: Moderate bilateral pleural effusions, larger on the right. CARDIOVASCULAR: Severe cardiomegaly. Stable position of left-sided permanent pacing device. No aortic atherosclerotic calcifications present. OSSEOUS STRUCTURES: Within normal limits for the patient's age. VISUALIZED UPPER ABDOMEN: Normal. OTHER FINDINGS: None. IMPRESSION: Worsening bilateral pleural effusions, larger on the right.
[2018-06-03 13:07] LABS: ALBUMIN 3.8 g/dL (3.5-5.0); CALCIUM 7.8 mg/dl (8.6-10.4)
[2018-06-03 13:14] LABS: CK-MB 1.73 ng/mL (0.0-3.38); TROPONIN I 0.012 ng/mL (0.00-0.120)
[2018-06-03 13:25] LABS: URINE BACTERIA RARE (<OCC); URINE BILIRUBIN NEGATIVE (NEGATIVE); URINE BLOOD NEGATIVE (NEGATIVE); URINE CLARITY Clear (Clear); URINE COLOR Yellow (YELLOW); URINE GLUCOSE (UA) NORMAL (Normal); URINE LEUKOCYTE ESTERASE NEG Leu/uL (Negative); URINE PROTEIN NEGATIVE (NEGATIVE)
--- NOTE | 2018-06-03 15:05 | CP.PCM.CON ---
<Alan Schwartz - Last Filed: 06/03/18 15:26> History of Present Illness - History of Present Illness History of Present Illness: Consult Note for Dr. Lopez This is a 68 y o male PMhx CHF, s/p defibrillator and pacemaker placement (2011), CHF, HTN, liver cirrhosis, ascites, pleural effusions, DM2, who was BiBEMS from [facility] for evaluation of shortness of breath and abdominal distension. Pt reports abdomen has become more distended since his recent d/c from [facility]. Recent hx L leg wound positive for MRSA. Reason for consult was for shortness of breath. On exam, pt denies any acute complaints, saturating well on NC, denies shortness of breath, chest tightness, n/v/d/c, urinary complaints, fever, chills, numbness/tingling in extremities, or other symptoms. Of note, on pt's recent prior admission, pt had paracentesis of 400 cc straw-colored fluid aspirated by IR. PMhx: as noted above PSurgHx: Defibrillator/pacemaker placed in 2011, multiple paracenteses/tho racenteses Allergies: NKDA Current meds: reviewed as per MAY Fam hx: T2DM (grandfather) Soc hx: Denies tobacco, EtOH and illicit drug use. Used to drink 12 beers per day for 30 years (quit many years ago). Review of Systems - Constitutional Constitutional: absent: Chills, Fever, Headache - Cardiovascular Cardiovascular: absent: Chest Pain, Dyspnea, Edema, Palpitations - Gastrointestinal Gastrointestinal: Bloating. absent: Abdominal Pain, Constipation, Diarrhea, Nausea, Vomiting - Integumentary Integumentary: absent: Pruritus, Rash, Unusual Bruising, Jaundice - Neurological Neurological: absent: Confusion, Dizziness, Numbness, Headaches, Tingling, Tremor, Weakness Past Patient History - Infectious Disease Hx of Infectious Diseases: None - Past Medical History & Family History Past Medical History?: Yes - Past Social History Smoking Status: Former Smoker - CARDIAC Hx Atrial Fibrillation: Yes Hx Congestive Heart Failure: Yes Hx Hypercholesterolemia: Yes Hx Hypertension: Yes Hx Pacemaker: Yes - PULMONARY Hx Chronic Obstructive Pulmonary Disease (COPD): Yes - NEUROLOGICAL Hx Neurological Disorder: No - HEENT Hx HEENT Problems: No - RENAL Hx Chronic Kidney Disease: No - ENDOCRINE/METABOLIC Hx Diabetes Mellitus Type 2: Yes - HEMATOLOGICAL/ONCOLOGICAL Hx Blood Disorders: No - INTEGUMENTARY Hx Dermatological Problems: Yes (lower leg ulcers) Other/Comment: MRSA of leg - MUSCULOSKELETAL/RHEUMATOLOGICAL Hx Arthritis: Yes - GASTROINTESTINAL Hx Pancreatitis: Yes (eval for possible pancreatitis) - GENITOURINARY/GYNECOLOGICAL Hx Genitourinary Disorders: No - PSYCHIATRIC Hx Substance Use: No - SURGICAL HISTORY Hx Appendectomy: Yes - ANESTHESIA Hx Anesthesia: Yes Hx Anesthesia Reactions: No Hx Malignant Hyperthermia: No Meds Allergies/Adverse Reactions: Allergies Allergy/AdvReac Type Severity Reaction Status Date / Time No Known Allergies Allergy Verified 04/15/18 16:30 Physical Exam - Constitutional Appears: Non-toxic, No Acute Distress, Chronically Ill - Head Exam Head Exam: ATRAUMATIC, NORMOCEPHALIC - Eye Exam Eye Exam: EOMI, Normal appearance, PERRL - ENT Exam ENT Exam: Mucous Membranes Moist - Respiratory Exam Respiratory Exam: Clear to Auscultation Bilateral, NORMAL BREATHING PATTERN. absent: Rales, Rhonchi, Wheezes - Cardiovascular Exam Cardiovascular Exam: REGULAR RHYTHM, +S1, +S2. absent: Gallop, Rubs, Systolic Murmur - GI/Abdominal Exam GI & Abdominal Exam: Distended, Normal Bowel Sounds, Soft. absent: Tenderness - Extremities Exam Extremities exam: Positive for: normal capillary refill, normal inspection, pedal pulses present. Negative for: tenderness - Neurological Exam Neurological exam: Alert, CN II-XII Intact, Oriented x3 - Skin Skin Exam: Dry, Intact, Warm Results - Vital Signs Recent Vital Signs: Last Vital Signs Temp 97.6 F 06/03/18 11:41 Pulse 86 06/03/18 14:15 Resp 24 06/03/18 14:15 BP 130/70 06/03/18 14:15 Pulse Ox 86 L 06/03/18 14:28 - Labs Result Diagrams: 06/03/18 12:32 06/03/18 12:32 Labs: Laboratory Results - last 24 hr 06/03/18 06/03/18 06/03/18 12:32 12:32 12:32 WBC 7.1 RBC 3.48 L Hgb 8.4 L Hct 28.0 L MCV 80.6 MCH 24.1 L MCHC 29.9 L RDW 20.1 H Plt Count 170 MPV 8.6 Neut % (Auto) 63.5 Lymph % (Auto) 16.8 L [place] % (Auto) 17.1 H Eos % (Auto) 1.8 Baso % (Auto) 0.8 Neut # (Auto) 4.5 Lymph # (Auto) 1.2 Amelia # (Auto) 1.2 H Eos # (Auto) 0.1 Baso # (Auto) 0.1 PT 14.2 H INR 1.3 APTT 34 Sodium 138 Potassium 4.8 Chloride 98 Carbon Dioxide 34 H Anion Gap 11 BUN 34 H Creatinine 1.5 Est GFR ( Amer) 57 Est GFR (Non-Af Amer) 47 Random Glucose 129 H Calcium 7.8 L Total Bilirubin 0.6 AST 38 ALT 10 L Alkaline Phosphatase 106 Total Creatine Kinase 136 CK-MB (Mass) 1.73 Troponin I 0.0120 NT-Pro-B Natriuret Pep 5340 H Total Protein 7.7 Albumin 3.8 Globulin 4.0 H Albumin/Globulin Ratio 1.0 Urine Color Urine Clarity Urine pH Ur Specific [place] Urine Protein Urine Glucose (UA) Urine Ketones Urine Blood Urine Nitrate Urine Bilirubin Urine Urobilinogen Ur Leukocyte Esterase Urine WBC (Auto) Urine RBC (Auto) Urine Bacteria 06/03/18 12:51 WBC RBC Hgb Hct MCV MCH MCHC RDW Plt Count MPV Neut % (Auto) Lymph % (Auto) [place] % (Auto) Eos % (Auto) Baso % (Auto) Neut # (Auto) Lymph # (Auto) [place] # (Auto) Eos # (Auto) Baso # (Auto) PT INR APTT Sodium Potassium Chloride Carbon Dioxide Anion Gap BUN Creatinine Est GFR ( Amer) Est GFR (Non-Af Amer) Random Glucose Calcium Total Bilirubin AST ALT Alkaline Phosphatase Total Creatine Kinase CK-MB (Mass) Troponin I NT-Pro-B Natriuret Pep Total Protein Albumin Globulin Albumin/Globulin Ratio Urine Color Yellow Urine Clarity Clear Urine pH 5.0 Ur Specific [place] 1.010 Urine Protein Negative Urine Glucose (UA) Normal Urine Ketones Negative Urine Blood Negative Urine Nitrate Negative Urine Bilirubin Negative Urine Urobilinogen 2.0 Ur Leukocyte Esterase Neg Urine WBC (Auto) < 1 Urine RBC (Auto) < 1 Urine Bacteria Rare Assessment & Plan - Assessment and Plan (Free Text) Assessment: This is a 68 y o male PMhx CHF, s/p defibrillator and pacemaker placement (2011), CHF, HTN, liver cirrhosis, ascites, pleural effusions, DM2, who was BiBEMS from [facility] for evaluation of shortness of breath and abdominal distension. Pt reports abdomen has become more distended since his recent d/c from [facility]. Recent hx L leg wound positive for MRSA. Reason for consult was for shortness of breath. Plan: -CXR: worsening b/l pleural effusions, R > L. -BNP elevated on admission -No leukocytosis -S/p lasix in ED -B/l pleural effusions may be 2/2 to worsening ascites Further recommendations as per Dr. Lopez, attending physician. Alan Schwartz DO PGY-1, Refiner Operator Pager #[phone] <Nate Lopez S - Last Filed: 06/03/18 16:17> Results - Vital Signs Recent Vital Signs: Last Vital Signs Temp 97.6 F 06/03/18 11:41 Pulse 86 06/03/18 14:15 Resp 24 06/03/18 14:15 BP 130/70 06/03/18 14:15 Pulse Ox 86 L 06/03/18 15:27 - Labs Result Diagrams: 06/03/18 12:32 06/03/18 12:32 Labs: Laboratory Results - last 24 hr 06/03/18 06/03/18 06/03/18 12:32 12:32 12:32 WBC 7.1 RBC 3.48 L Hgb 8.4 L Hct 28.0 L MCV 80.6 MCH 24.1 L MCHC 29.9 L RDW 20.1 H Plt Count 170 MPV 8.6 Neut % (Auto) 63.5 Lymph % (Auto) 16.8 L [place] % (Auto) 17.1 H Eos % (Auto) 1.8 Baso % (Auto) 0.8 Neut # (Auto) 4.5 Lymph # (Auto) 1.2 [place] # (Auto) 1.2 H Eos # (Auto) 0.1 Baso # (Auto) 0.1 PT 14.2 H INR 1.3 APTT 34 Sodium 138 Potassium 4.8 Chloride 98 Carbon Dioxide 34 H Anion Gap 11 BUN 34 H Creatinine 1.5 Est GFR ( Amer) 57 Est GFR (Non-Af Amer) 47 Random Glucose 129 H Calcium 7.8 L Total Bilirubin 0.6 AST 38 ALT 10 L Alkaline Phosphatase 106 Total Creatine Kinase 136 CK-MB (Mass) 1.73 Troponin I 0.0120 NT-Pro-B Natriuret Pep 5340 H Total Protein 7.7 Albumin 3.8 Globulin 4.0 H Albumin/Globulin Ratio 1.0 Urine Color Urine Clarity Urine pH Ur Specific [place] Urine Protein Urine Glucose (UA) Urine Ketones Urine Blood Urine Nitrate Urine Bilirubin Urine Urobilinogen Ur Leukocyte Esterase Urine WBC (Auto) Urine RBC (Auto) Urine Bacteria 06/03/18 12:51 WBC RBC Hgb Hct MCV MCH MCHC RDW Plt Count MPV Neut % (Auto) Lymph % (Auto) [place] % (Auto) Eos % (Auto) Baso % (Auto) Neut # (Auto) Lymph # (Auto) [place] # (Auto) Eos # (Auto) Baso # (Auto) PT INR APTT Sodium Potassium Chloride Carbon Dioxide Anion Gap BUN Creatinine Est GFR ( Amer) Est GFR (Non-Af Amer) Random Glucose Calcium Total Bilirubin AST ALT Alkaline Phosphatase Total Creatine Kinase CK-MB (Mass) Troponin I NT-Pro-B Natriuret Pep Total Protein Albumin Globulin Albumin/Globulin Ratio Urine Color Yellow Urine Clarity Clear Urine pH 5.0 Ur Specific [place] 1.010 Urine Protein Negative Urine Glucose (UA) Normal Urine Ketones Negative Urine Blood Negative Urine Nitrate Negative Urine Bilirubin Negative Urine Urobilinogen 2.0 Ur Leukocyte Esterase Neg Urine WBC (Auto) < 1 Urine RBC (Auto) < 1 Urine Bacteria Rare Attending/Attestation - Attestation I have personally seen and examined this patient.: Yes I have fully participated in the care of the patient.: Yes I have reviewed all pertinent clinical information: Yes Notes (Text): 06/03/18 16:16 Patient seen and examined 68-year-old male presented with abdominal distention and shortness of breath Bilateral pleural effusion right greater than left Thoracentesis and will benefit from paracentesis Admit to telemetry
--- NOTE | 2018-06-03 18:11 | CP.PCM.HP ---
Past Patient History - Infectious Disease Hx of Infectious Diseases: None - Past Medical History & Family History Past Medical History?: Yes - Past Social History Smoking Status: Former Smoker - CARDIAC Hx Atrial Fibrillation: Yes Hx Congestive Heart Failure: Yes Hx Hypercholesterolemia: Yes Hx Hypertension: Yes Hx Pacemaker: Yes - PULMONARY Hx Chronic Obstructive Pulmonary Disease (COPD): Yes - NEUROLOGICAL Hx Neurological Disorder: No - HEENT Hx HEENT Problems: No - RENAL Hx Chronic Kidney Disease: No - ENDOCRINE/METABOLIC Hx Diabetes Mellitus Type 2: Yes - HEMATOLOGICAL/ONCOLOGICAL Hx Blood Disorders: No - INTEGUMENTARY Hx Dermatological Problems: Yes (lower leg ulcers) Other/Comment: MRSA of leg - MUSCULOSKELETAL/RHEUMATOLOGICAL Hx Arthritis: Yes - GASTROINTESTINAL Hx Pancreatitis: Yes (eval for possible pancreatitis) - GENITOURINARY/GYNECOLOGICAL Hx Genitourinary Disorders: No - PSYCHIATRIC Hx Substance Use: No - SURGICAL HISTORY Hx Appendectomy: Yes - ANESTHESIA Hx Anesthesia: Yes Hx Anesthesia Reactions: No Hx Malignant Hyperthermia: No Meds Allergies/Adverse Reactions: Allergies Allergy/AdvReac Type Severity Reaction Status Date / Time No Known Allergies Allergy Verified 04/15/18 16:30 Physical Exam - Constitutional Appears: Well - Head Exam Head Exam: ATRAUMATIC, NORMAL INSPECTION, NORMOCEPHALIC - Eye Exam Eye Exam: EOMI, Normal appearance, PERRL Pupil Exam: NORMAL ACCOMODATION, PERRL - ENT Exam ENT Exam: Mucous Membranes Moist, Normal Exam - Neck Exam Neck exam: Positive for: Normal Inspection - Respiratory Exam Respiratory Exam: Decreased Breath Sounds - Cardiovascular Exam Cardiovascular Exam: REGULAR RHYTHM, +S1, +S2 - GI/Abdominal Exam GI & Abdominal Exam: Diminished Bowel Sounds, Soft - Rectal Exam Rectal Exam: Deferred Results - Vital Signs Recent Vital Signs: Last Vital Signs Temp 98.9 F 06/03/18 16:48 Pulse 90 06/03/18 16:48 Resp 20 06/03/18 16:48 BP 126/80 06/03/18 16:48 Pulse Ox 94 L 06/03/18 16:48 - Labs Result Diagrams: 06/03/18 12:32 06/03/18 12:32 Labs: Laboratory Results - last 24 hr 06/03/18 06/03/18 06/03/18 12:32 12:32 12:32 WBC 7.1 RBC 3.48 L Hgb 8.4 L Hct 28.0 L MCV 80.6 MCH 24.1 L MCHC 29.9 L RDW 20.1 H Plt Count 170 MPV 8.6 Neut % (Auto) 63.5 Lymph % (Auto) 16.8 L [place] % (Auto) 17.1 H Eos % (Auto) 1.8 Baso % (Auto) 0.8 Neut # (Auto) 4.5 Lymph # (Auto) 1.2 [place] # (Auto) 1.2 H Eos # (Auto) 0.1 Baso # (Auto) 0.1 PT 14.2 H INR 1.3 APTT 34 Sodium 138 Potassium 4.8 Chloride 98 Carbon Dioxide 34 H Anion Gap 11 BUN 34 H Creatinine 1.5 Est GFR ( Amer) 57 Est GFR (Non-Af Amer) 47 Random Glucose 129 H Calcium 7.8 L Total Bilirubin 0.6 AST 38 ALT 10 L Alkaline Phosphatase 106 Total Creatine Kinase 136 CK-MB (Mass) 1.73 Troponin I 0.0120 NT-Pro-B Natriuret Pep 5340 H Total Protein 7.7 Albumin 3.8 Globulin 4.0 H Albumin/Globulin Ratio 1.0 Urine Color Urine Clarity Urine pH Ur Specific [place] Urine Protein Urine Glucose (UA) Urine Ketones Urine Blood Urine Nitrate Urine Bilirubin Urine Urobilinogen Ur Leukocyte Esterase Urine WBC (Auto) Urine RBC (Auto) Urine Bacteria 06/03/18 12:51 WBC RBC Hgb Hct MCV MCH MCHC RDW Plt Count MPV Neut % (Auto) Lymph % (Auto) [place] % (Auto) Eos % (Auto) Baso % (Auto) Neut # (Auto) Lymph # (Auto) [place] # (Auto) Eos # (Auto) Baso # (Auto) PT INR APTT Sodium Potassium Chloride Carbon Dioxide Anion Gap BUN Creatinine Est GFR ( Amer) Est GFR (Non-Af Amer) Random Glucose Calcium Total Bilirubin AST ALT Alkaline Phosphatase Total Creatine Kinase CK-MB (Mass) Troponin I NT-Pro-B Natriuret Pep Total Protein Albumin Globulin Albumin/Globulin Ratio Urine Color Yellow Urine Clarity Clear Urine pH 5.0 Ur Specific [place] 1.010 Urine Protein Negative Urine Glucose (UA) Normal Urine Ketones Negative Urine Blood Negative Urine Nitrate Negative Urine Bilirubin Negative Urine Urobilinogen 2.0 Ur Leukocyte Esterase Neg Urine WBC (Auto) < 1 Urine RBC (Auto) < 1 Urine Bacteria Rare
[2018-06-03] MEDS ORDERED: Promethazine DM 12.5 mg-30 mg/10 ml Syrup PO PRN (19:19)
--- NOTE | 2018-06-03 21:43 | CP.PCM.CON ---
History of Present Illness - History of Present Illness History of Present Illness: I was asked to evaluate patient by Dr Mariluz Jeong seen 06/03/18 0678 Patient is a 68 year old male with chronci systolic dsyfunction, s/p AICD HTn liver cirrhosis who presents with increased abdominal distension. Patient had a recent hospitalization for dyspnea, abdominal distension. paracentesis was performed at that time. The patient was p[laced on diuretic therapy and discharged. he returns with increasing abdominal distension. he denies chest pain. he is also dyspneic. Review of Systems - Constitutional Constitutional: Fatigue - EENT Eyes: absent: As Per HPI, Blind Spots, Blurred Vision, Change in Vision, De creased Night Vision, Diplopia, Discharge, Dry Eye, Exophthalmos, Floaters, Irritation, Itchy Eyes, Loss of Peripheral Vision, Pain, Photophobia, Requires Corrective Lenses, Sees Flashes, Spots in Vision, Tunnel Vision, Other Visual Disturbances, Loss of Vision, Other Ears: absent: As Per HPI, Decreased Hearing, Ear Discharge, Ear Pain, Tinnitus, Abnormal Hearing, Disequilibrium, Dizziness, Other Nose/Mouth/Throat: absent: As Per HPI, Epistaxis, Nasal Congestion, Nasal Discharge, Nasal Obstruction, Nasal Trauma, Nose Pain, Post Nasal Drip, Sinus Pain, Sinus Pressure, Bleeding Gums, Change in Voice, Dental Pain, Dry Mouth, Dysphagia, Halitosis, Hoarsness, Lip Swelling, Mouth Lesions, Mouth Pain, Odynophagia, Sore Throat, Throat Swelling, Tongue Swelling, Facial Pain, Neck Pain, Neck Mass, Other - Cardiovascular Cardiovascular: Dyspnea - Respiratory Respiratory: Dyspnea - Gastrointestinal Gastrointestinal: absent: As Per HPI, Abdominal Pain, Belching, Bloating, Change in Bowel Habits, Change in Stool Character, Coffee Ground Emesis, Constipation, Cramping, Diarrhea, Dyspepsia, Dysphagia, Early Satiety, Excessive Flatus, Fecal Incontinence, Heartburn, Hematemesis, Hematochezia, Loose Stools, Melena, Nausea, Odynophagia, Temesmus, Vomiting, Other - Genitourinary Genitourinary: absent: As Per HPI, Change in Urinary Stream, Difficulty Urinating, Dysuria, Flank Pain, Hematuria, Pyuria, Nocturia, Urinary Incontinence, Urinary Frequency, Urinary Hesitance, Urinary Urgency, Voiding Freq/Small Amts, Freq UTI, Hx Renal/Bladder Calculi, Hx /Renal Surgery, Bladder Distension, Other - Musculoskeletal Musculoskeletal: absent: As Per HPI, Abnormal Gait, Arthralgias, Atrophy, Back Pain, Deformity, Joint Swelling, Limited Range of Motion, Loss of Height, Muscle Cramps, Muscle Weakness, Myalgias, Neck Pain, Numbness, Radiating Pain into Limb, Stiffness, Tingling, Other - Integumentary Integumentary: absent: As Per HPI, Acne, Alopecia, Bleeding Lesions, Change in Hair, Change in Nails, Change in Pigmentation, Changing Lesions, Dry Skin, Erythema, Furuncle, Hirsutism, Lesions, New Lesions, Non-Healing Lesions, Photosensitivity, Pruritus, Rash, Skin Pain, Skin Ulcer, Sores, Striae, Swelling, Unusual Bruising, Wounds, Jaundice, Other - Neurological Neurological: absent: As Per HPI, Abnormal Gait, Abnormal Hearing, Abnormal Movements, Abnormal Speech, Behavioral Changes, Burning Sensations, Confusion, Convulsions, Disequilibrium, Dizziness, Numbness, Focal Weakness, Frequent Falls, Headaches, Lack of Coordination, Loss of Vision, Memory Loss, Paresthesia s, Radicular Pain, Restless Legs, Sensory Deficit, Syncope, Tingling, Tremor, Vertigo, Weakness, Other Visual Disturbances, Other - Psychiatric Psychiatric: absent: As Per HPI, Abnormal Sleep Pattern, Anhedonia, Anxiety, Auditory Hallucinations, Behavioral Changes, Change in Appetite, Change in Libido, Confusion, Depression, Difficulty Concentrating, Hallucinations, Homicidal Ideation, Hopelessness, Irritability, Memory Loss, Mood Swings, Panic Attacks, Paranoia, Suicidal Ideation, Visual Hallucinations, Tactile Hallucinations, Other - Hematologic/Lymphatic Hematologic: absent: As Per HPI, Easy Bleeding, Easy Bruising, Lymphadenopathy, Other Past Patient History - Infectious Disease Hx of Infectious Diseases: None - Past Medical History & Family History Past Medical History?: Yes - Past Social History Smoking Status: Former Smoker - CARDIAC Hx Atrial Fibrillation: Yes Hx Congestive Heart Failure: Yes Hx Hypercholesterolemia: Yes Hx Hypertension: Yes Hx Pacemaker: Yes - PULMONARY Hx Chronic Obstructive Pulmonary Disease (COPD): Yes - NEUROLOGICAL Hx Neurological Disorder: No - HEENT Hx HEENT Problems: No - RENAL Hx Chronic Kidney Disease: No - ENDOCRINE/METABOLIC Hx Diabetes Mellitus Type 2: Yes - HEMATOLOGICAL/ONCOLOGICAL Hx Blood Disorders: No - INTEGUMENTARY Hx Dermatological Problems: Yes (lower leg ulcers) Other/Comment: MRSA of leg - MUSCULOSKELETAL/RHEUMATOLOGICAL Hx Arthritis: Yes - GASTROINTESTINAL Hx Pancreatitis: Yes (eval for possible pancreatitis) - GENITOURINARY/GYNECOLOGICAL Hx Genitourinary Disorders: No - PSYCHIATRIC Hx Substance Use: No - SURGICAL HISTORY Hx Appendectomy: Yes - ANESTHESIA Hx Anesthesia: Yes Hx Anesthesia Reactions: No Hx Malignant Hyperthermia: No Meds Allergies/Adverse Reactions: Allergies Allergy/AdvReac Type Severity Reaction Status Date / Time No Known Allergies Allergy Verified 04/15/18 16:30 - Medications Medications: Current Medications Albuterol/Ipratropium (Duoneb 3 Mg/0.5 Mg (3 Ml) Ud) 3 ml INH RQ6 [facility] Aspirin (Aspirin Chewable) 81 mg PO DAILY [facility] Carvedilol (Coreg) 3.125 mg PO BID [facility] Docusate Sodium (Colace) 100 mg PO DAILY [facility] Enoxaparin Sodium (Lovenox) 30 mg SC DAILY [facility] Insulin Aspart (Novolog) 1 unit IV ACHS [facility]; Protocol Pantoprazole Sodium (Protonix Ec Tab) 40 mg PO DAILY [facility] Promethazine HCl/Dextromethorphan (Phenergan Dm Syrup) 10 ml PO TID PRN PRN Reason: Cough Rosuvastatin Calcium (Crestor) 5 mg PO HS [facility] Sacubitril/Valsartan (Entresto 24 Mg-26 Mg) 1 tab PO 00,1999 [facility] Physical Exam - Constitutional Appears: Non-toxic, Chronically Ill - Head Exam Head Exam: NORMAL INSPECTION - Eye Exam Eye Exam: Normal appearance - ENT Exam ENT Exam: Mucous Membranes Moist, Normal Exam - Neck Exam Neck exam: Negative for: Lymphadenopathy, Thyromegaly - Respiratory Exam Respiratory Exam: Decreased Breath Sounds, Rales - Cardiovascular Exam Cardiovascular Exam: REGULAR RHYTHM - GI/Abdominal Exam GI & Abdominal Exam: Distended, Normal Bowel Sounds - Rectal Exam Rectal Exam: Deferred - Extremities Exam Extremities exam: Positive for: pedal edema - Back Exam Back exam: NORMAL INSPECTION - Neurological Exam Neurological exam: Alert, Oriented x3 - Psychiatric Exam Psychiatric exam: Normal Affect Results - Vital Signs Recent Vital Signs: Last Vital Signs Temp 97.2 F L 06/03/18 18:00 Pulse 83 06/03/18 18:00 Resp 18 06/03/18 18:00 BP 141/98 H 06/03/18 18:00 Pulse Ox 86 L 06/03/18 19:24 - Labs Result Diagrams: 06/04/18 11:11 06/04/18 11:11 Labs: Laboratory Results - last 24 hr 06/03/18 06/03/18 06/03/18 12:32 12:32 12:32 WBC 7.1 RBC 3.48 L Hgb 8.4 L Hct 28.0 L MCV 80.6 MCH 24.1 L MCHC 29.9 L RDW 20.1 H Plt Count 170 MPV 8.6 Neut % (Auto) 63.5 Lymph % (Auto) 16.8 L [place] % (Auto) 17.1 H Eos % (Auto) 1.8 Baso % (Auto) 0.8 Neut # (Auto) 4.5 Lymph # (Auto) 1.2 [place] # (Auto) 1.2 H Eos # (Auto) 0.1 Baso # (Auto) 0.1 PT 14.2 H INR 1.3 APTT 34 Sodium 138 Potassium 4.8 Chloride 98 Carbon Dioxide 34 H Anion Gap 11 BUN 34 H Creatinine 1.5 Est GFR ( Amer) 57 Est GFR (Non-Af Amer) 47 Random Glucose 129 H Calcium 7.8 L Total Bilirubin 0.6 AST 38 ALT 10 L Alkaline Phosphatase 106 Total Creatine Kinase 136 CK-MB (Mass) 1.73 Troponin I 0.0120 NT-Pro-B Natriuret Pep 5340 H Total Protein 7.7 Albumin 3.8 Globulin 4.0 H Albumin/Globulin Ratio 1.0 Urine Color Urine Clarity Urine pH Ur Specific [place] Urine Protein Urine Glucose (UA) Urine Ketones Urine Blood Urine Nitrate Urine Bilirubin Urine Urobilinogen Ur Leukocyte Esterase Urine WBC (Auto) Urine RBC (Auto) Urine Bacteria 06/03/18 12:51 WBC RBC Hgb Hct MCV MCH MCHC RDW Plt Count MPV Neut % (Auto) Lymph % (Auto) [place] % (Auto) Eos % (Auto) Baso % (Auto) Neut # (Auto) Lymph # (Auto) [place] # (Auto) Eos # (Auto) Baso # (Auto) PT INR APTT Sodium Potassium Chloride Carbon Dioxide Anion Gap BUN Creatinine Est GFR ( Amer) Est GFR (Non-Af Amer) Random Glucose Calcium Total Bilirubin AST ALT Alkaline Phosphatase Total Creatine Kinase CK-MB (Mass) Troponin I NT-Pro-B Natriuret Pep Total Protein Albumin Globulin Albumin/Globulin Ratio Urine Color Yellow Urine Clarity Clear Urine pH 5.0 Ur Specific [place] 1.010 Urine Protein Negative Urine Glucose (UA) Normal Urine Ketones Negative Urine Blood Negative Urine Nitrate Negative Urine Bilirubin Negative Urine Urobilinogen 2.0 Ur Leukocyte Esterase Neg Urine WBC (Auto) < 1 Urine RBC (Auto) < 1 Urine Bacteria Rare - EKG Data EKG Interpreted by: Myself Assessment & Plan (1) NYHA class 3 acute on chronic systolic heart failure Assessment and Plan: continue diuretic therapy will beneift from thoracentesis. Status: Chronic (2) Ascites Assessment and Plan: as per IR Status: Acute (3) CAD (coronary artery disease) Assessment and Plan: no current angina medical therpy Status: Acute (4) Hypertension Assessment and Plan: blood pressure control Status: Chronic Priority: Medium - Date & Time Date: 06/03/18 Time: 21:43
--- NOTE | 2018-06-03 21:43 | CP.PCM.CON ---
History of Present Illness - History of Present Illness History of Present Illness: I was asked to see patient by Dr Mahajan full consult to follow. will continue medical therapy and diuresis. Past Patient History - Infectious Disease Hx of Infectious Diseases: None - Past Medical History & Family History Past Medical History?: Yes - Past Social History Smoking Status: Former Smoker - CARDIAC Hx Atrial Fibrillation: Yes Hx Congestive Heart Failure: Yes Hx Hypercholesterolemia: Yes Hx Hypertension: Yes Hx Pacemaker: Yes - PULMONARY Hx Chronic Obstructive Pulmonary Disease (COPD): Yes - NEUROLOGICAL Hx Neurological Disorder: No - HEENT Hx HEENT Problems: No - RENAL Hx Chronic Kidney Disease: No - ENDOCRINE/METABOLIC Hx Diabetes Mellitus Type 2: Yes - HEMATOLOGICAL/ONCOLOGICAL Hx Blood Disorders: No - INTEGUMENTARY Hx Dermatological Problems: Yes (lower leg ulcers) Other/Comment: MRSA of leg - MUSCULOSKELETAL/RHEUMATOLOGICAL Hx Arthritis: Yes - GASTROINTESTINAL Hx Pancreatitis: Yes (eval for possible pancreatitis) - GENITOURINARY/GYNECOLOGICAL Hx Genitourinary Disorders: No - PSYCHIATRIC Hx Substance Use: No - SURGICAL HISTORY Hx Appendectomy: Yes - ANESTHESIA Hx Anesthesia: Yes Hx Anesthesia Reactions: No Hx Malignant Hyperthermia: No Meds Allergies/Adverse Reactions: Allergies Allergy/AdvReac Type Severity Reaction Status Date / Time No Known Allergies Allergy Verified 04/15/18 16:30 - Medications Medications: Current Medications Albuterol/Ipratropium (Duoneb 3 Mg/0.5 Mg (3 Ml) Ud) 3 ml INH RQ6 [facility] Aspirin (Aspirin Chewable) 81 mg PO DAILY [facility] Carvedilol (Coreg) 3.125 mg PO BID [facility] Docusate Sodium (Colace) 100 mg PO DAILY [facility] Enoxaparin Sodium (Lovenox) 30 mg SC DAILY [facility] Insulin Aspart (Novolog) 1 unit IV ACHS [facility]; Protocol Pantoprazole Sodium (Protonix Ec Tab) 40 mg PO DAILY [facility] Promethazine HCl/Dextromethorphan (Phenergan Dm Syrup) 10 ml PO TID PRN PRN Reason: Cough Rosuvastatin Calcium (Crestor) 5 mg PO HS [facility] Sacubitril/Valsartan (Entresto 24 Mg-26 Mg) 1 tab PO 0800,1999 [facility] Results - Vital Signs Recent Vital Signs: Last Vital Signs Temp 97.2 F L 06/03/18 18:00 Pulse 83 06/03/18 18:00 Resp 18 06/03/18 18:00 BP 141/98 H 06/03/18 18:00 Pulse Ox 86 L 06/03/18 19:24 - Labs Result Diagrams: 06/03/18 12:32 06/03/18 12:32 Labs: Laboratory Results - last 24 hr 06/03/18 06/03/18 06/03/18 12:32 12:32 12:32 WBC 7.1 RBC 3.48 L Hgb 8.4 L Hct 28.0 L MCV 80.6 MCH 24.1 L MCHC 29.9 L RDW 20.1 H Plt Count 170 MPV 8.6 Neut % (Auto) 63.5 Lymph % (Auto) 16.8 L [place] % (Auto) 17.1 H Eos % (Auto) 1.8 Baso % (Auto) 0.8 Neut # (Auto) 4.5 Lymph # (Auto) 1.2 [place] # (Auto) 1.2 H Eos # (Auto) 0.1 Baso # (Auto) 0.1 PT 14.2 H INR 1.3 APTT 34 Sodium 138 Potassium 4.8 Chloride 98 Carbon Dioxide 34 H Anion Gap 11 BUN 34 H Creatinine 1.5 Est GFR ( Amer) 57 Est GFR (Non-Af Amer) 47 Random Glucose 129 H Calcium 7.8 L Total Bilirubin 0.6 AST 38 ALT 10 L Alkaline Phosphatase 106 Total Creatine Kinase 136 CK-MB (Mass) 1.73 Troponin I 0.0120 NT-Pro-B Natriuret Pep 5340 H Total Protein 7.7 Albumin 3.8 Globulin 4.0 H Albumin/Globulin Ratio 1.0 Urine Color Urine Clarity Urine pH Ur Specific [place] Urine Protein Urine Glucose (UA) Urine Ketones Urine Blood Urine Nitrate Urine Bilirubin Urine Urobilinogen Ur Leukocyte Esterase Urine WBC (Auto) Urine RBC (Auto) Urine Bacteria 06/03/18 12:51 WBC RBC Hgb Hct MCV MCH MCHC RDW Plt Count MPV Neut % (Auto) Lymph % (Auto) [place] % (Auto) Eos % (Auto) Baso % (Auto) Neut # (Auto) Lymph # (Auto) [place] # (Auto) Eos # (Auto) Baso # (Auto) PT INR APTT Sodium Potassium Chloride Carbon Dioxide Anion Gap BUN Creatinine Est GFR ( Amer) Est GFR (Non-Af Amer) Random Glucose Calcium Total Bilirubin AST ALT Alkaline Phosphatase Total Creatine Kinase CK-MB (Mass) Troponin I NT-Pro-B Natriuret Pep Total Protein Albumin Globulin Albumin/Globulin Ratio Urine Color Yellow Urine Clarity Clear Urine pH 5.0 Ur Specific [place] 1.010 Urine Protein Negative Urine Glucose (UA) Normal Urine Ketones Negative Urine Blood Negative Urine Nitrate Negative Urine Bilirubin Negative Urine Urobilinogen 2.0 Ur Leukocyte Esterase Neg Urine WBC (Auto) < 1 Urine RBC (Auto) < 1 Urine Bacteria Rare
[2018-06-03] MEDS: (Novolog) Insulin Aspart, Recombinant 100 u/ml 10 ml vial IV SCH (22:49)
[2018-06-03] MEDS: Sacubitril/Valsartan 24-26mg Tab PO SCH (22:51)
[2018-06-04] MEDS: Albuterol-Ipratrop 3 mg / 0.5 (3 ml) UD INH SCH ×4 (01:22→19:19)
--- NOTE | 2018-06-04 07:20 | CP.PCM.PN ---
Subjective - Date & Time of Evaluation Date of Evaluation: 06/04/18 Time of Evaluation: 07:20 - Subjective Subjective: Medicine Progress Note - Dr Mariluz Mahajan's service Patient seen and examined at bedside. Per nursing no acute events overnight. Patient states that he came to the emergency room yesterday because he was experiencing left sided chest pain. He also reports having worsening dyspnea for the past four days. He went to IR for possible thoracentesis for large pleural effusion however patient refused. He states that he is still short of breath. Chest pain has resolved. Objective - Vital Signs/Intake and Output Vital Signs (last 24 hours): Temp Pulse Resp BP Pulse Ox 98 F 82 20 115/68 95 06/03/18 23:15 06/03/18 23:20 06/03/18 23:15 06/03/18 23:15 06/03/18 23:45 - Medications Medications: Current Medications Albuterol/Ipratropium (Duoneb 3 Mg/0.5 Mg (3 Ml) Ud) 3 ml INH RQ6 [facility] Last Admin: 06/04/18 01:22 Dose: Not Given Aspirin (Aspirin Chewable) 81 mg PO DAILY [facility] Carvedilol (Coreg) 3.125 mg PO BID [facility] Docusate Sodium (Colace) 100 mg PO DAILY [facility] Enoxaparin Sodium (Lovenox) 30 mg SC DAILY [facility] Insulin Aspart (Novolog) 1 unit IV [facility]; Protocol Last Admin: 06/03/18 22:49 Dose: Not Given Pantoprazole Sodium (Protonix Ec Tab) 40 mg PO DAILY [facility] Promethazine HCl/Dextromethorphan (Phenergan Dm Syrup) 10 ml PO TID PRN PRN Reason: Cough Rosuvastatin Calcium (Crestor) 5 mg PO HS [facility] Last Admin: 06/03/18 22:51 Dose: 5 mg Sacubitril/Valsartan (Entresto 24 Mg-26 Mg) 1 tab PO 0800,1999 [facility] Last Admin: 06/03/18 22:51 Dose: 1 tab - Labs Labs: 06/03/18 12:32 06/03/18 12:32 PT 14.2 SECONDS (9.7-12.2) H 06/03/18 12:32 INR 1.3 06/03/18 12:32 APTT 34 SECONDS (21-34) 06/03/18 12:32 - Constitutional Appears: Non-toxic, Chronically Ill - Head Exam Head Exam: ATRAUMATIC, NORMAL INSPECTION, NORMOCEPHALIC - Eye Exam Eye Exam: EOMI, Normal appearance - Neck Exam Neck Exam: Full ROM - Respiratory Exam Respiratory Exam: Decreased Breath Sounds, NORMAL BREATHING PATTERN - Cardiovascular Exam Cardiovascular Exam: REGULAR RHYTHM, +S1, +S2 - GI/Abdominal Exam GI & Abdominal Exam: Distended, Soft. absent: Firm, Rigid, Tenderness - Extremities Exam Additional comments: Left lower extremity dressing c/d/i, +pedal pulses - Neurological Exam Neurological Exam: Alert, Awake, Oriented x3 - Psychiatric Exam Psychiatric exam: Normal Affect, Normal Mood Assessment and Plan - Assessment and Plan (Free Text) Assessment: Recurrent Pleural effusions -S/P lasix 40mg IVP x 1 -CXR showed Worsening bilateral pleural effusions, larger on the right -Patient refused thoracentesis this morning -Patient is now ammendable to the procedure -Discussed the case with Dr Randle, patient for possible thoracentesis on Saturday -Pulmonology on consult, Dr Lopez, help appreciated Decompensated alcoholic cirrhosis, ascites -MELD 13 on admission -Abdominal US showed Cholelithiasis. No sonographic evidence of acute cholecystitis. Cirrhotic liver. Portal venous flow: Bidirectional hepato pedal/hepatofugal flow noted.Limitations of the current study, patient compliance issues precluded assessment of the IVC and aorta. Nondiagnostic study of the pancreas obscured by overlying bowel gas. (see full report) -Suggest diagnostic and therapeutic paracentesis -Continue Aldactone 50mg PO BID, Lasix 40mg IVP BID -Triple phase CT ordered -GI on consult, Dr Edwards, help appreciated Systolic CHF s/p AICD -BNP elevated on admission -Continue Entresto, Coreg 3.125mg PO BID, Aspirin 81mg PO daily, Cresor 5mg PO H S -Last echo 07/2017 showed EF 10-20%, moderate concentric LVH with severe global hypokinesis, moderate to severe TR, severe pulm HTN (see full report) -Cardiology on consult, Dr Rouse, help appreciated Chest pain -Initial troponin negative, trend Q6H -EKG on admission showed ventricular paced rhythm, 78 bpm -Monitor on telemetry COPD -Duonebs prn DM -ISS and accuchecks ACHS HTN -Continue to monitor GI/DVT ppx: Lovenox 30 units SC daily Plan discussed with Dr Mariluz Pedroza DO PGY-2
[2018-06-04] MEDS: (Novolog) Insulin Aspart, Recombinant 100 u/ml 10 ml vial IV SCH ×2 (08:00→13:00)
[2018-06-04] MEDS ORDERED: Lidocaine Hydrochloride 5 ML INJ ONE (09:08)
--- NOTE | 2018-06-04 09:46 | PCM.IRP ---
History of Present Illness - History of Present Illness History of Present Illness: Pt had abdominal US and requested the exam be shortened. He refused the thoracentesis. US showed small amount of ascites, moderate right pleural effusion. Objective - Vital Signs/Intake and Output Vital Signs (last 24 hours): Vital Signs - 24 hr 06/03/18 06/03/18 06/03/18 11:41 12:59 13:50 Temperature 97.6 F Pulse Rate 98 H 79 80 Respiratory 24 14 20 Rate Blood Pressure 118/69 106/76 121/74 O2 Sat by Pulse 86 L 100 Oximetry 06/03/18 06/03/18 06/03/18 14:15 16:48 18:00 Temperature 98.9 F 97.2 F L Pulse Rate 86 90 83 Respiratory 24 20 18 Rate Blood Pressure 130/70 126/80 141/98 H O2 Sat by Pulse 94 L 94 L 99 Oximetry 06/03/18 06/03/18 06/03/18 19:24 23:15 23:20 Temperature 98 F Pulse Rate 87 82 Respiratory 20 Rate Blood Pressure 115/68 O2 Sat by Pulse 86 L 95 Oximetry 06/03/18 06/04/18 23:45 07:00 Temperature 97.4 F L Pulse Rate 80 Respiratory 18 Rate Blood Pressure 101/68 O2 Sat by Pulse 95 Oximetry Intake and Output (last 12 hours): Intake & Output 06/03/18 06/04/18 06/04/18 18:59 06:59 18:59 Output Total 200 Balance -200 Weight 200 lb 253 lb Output: Urine 200 - Medications Medications: Current Medications Albuterol/Ipratropium (Duoneb 3 Mg/0.5 Mg (3 Ml) Ud) 3 ml INH RQ6 [facility] Last Admin: 06/04/18 08:10 Dose: Not Given Aspirin (Aspirin Chewable) 81 mg PO DAILY [facility] Carvedilol (Coreg) 3.125 mg PO BID [facility] Docusate Sodium (Colace) 100 mg PO DAILY [facility] Enoxaparin Sodium (Lovenox) 30 mg SC DAILY [facility] Insulin Aspart (Novolog) 1 unit IV ACHS [facility]; Protocol Last Admin: 06/04/18 08:00 Dose: Not Given Pantoprazole Sodium (Protonix Ec Tab) 40 mg PO DAILY [facility] Promethazine HCl/Dextromethorphan (Phenergan Dm Syrup) 10 ml PO TID PRN PRN Reason: Cough Rosuvastatin Calcium (Crestor) 5 mg PO HS [facility] Last Admin: 06/03/18 22:51 Dose: 5 mg Sacubitril/Valsartan (Entresto 24 Mg-26 Mg) 1 tab PO 0800,1999 [facility] Last Admin: 06/03/18 22:51 Dose: 1 tab - Labs Labs (last 24 hours): Laboratory Results - last 24 hr 06/03/18 06/03/18 06/03/18 12:32 12:32 12:32 WBC 7.1 RBC 3.48 L Hgb 8.4 L Hct 28.0 L MCV 80.6 MCH 24.1 L MCHC 29.9 L RDW 20.1 H Plt Count 170 MPV 8.6 Neut % (Auto) 63.5 Lymph % (Auto) 16.8 L [place] % (Auto) 17.1 H Eos % (Auto) 1.8 Baso % (Auto) 0.8 Neut # (Auto) 4.5 Lymph # (Auto) 1.2 [place] # (Auto) 1.2 H Eos # (Auto) 0.1 Baso # (Auto) 0.1 PT 14.2 H INR 1.3 APTT 34 Sodium 138 Potassium 4.8 Chloride 98 Carbon Dioxide 34 H Anion Gap 11 BUN 34 H Creatinine 1.5 Est GFR ( Amer) 57 Est GFR (Non-Af Amer) 47 POC Glucose (mg/dL) Random Glucose 129 H Calcium 7.8 L Total Bilirubin 0.6 AST 38 ALT 10 L Alkaline Phosphatase 106 Total Creatine Kinase 136 CK-MB (Mass) 1.73 Troponin I 0.0120 NT-Pro-B Natriuret Pep 5340 H Total Protein 7.7 Albumin 3.8 Globulin 4.0 H Albumin/Globulin Ratio 1.0 Urine Color Urine Clarity Urine pH Ur Specific [place] Urine Protein Urine Glucose (UA) Urine Ketones Urine Blood Urine Nitrate Urine Bilirubin Urine Urobilinogen Ur Leukocyte Esterase Urine WBC (Auto) Urine RBC (Auto) Urine Bacteria 06/03/18 06/03/18 12:51 21:42 WBC RBC Hgb Hct MCV MCH MCHC RDW Plt Count MPV Neut % (Auto) Lymph % (Auto) [place] % (Auto) Eos % (Auto) Baso % (Auto) Neut # (Auto) Lymph # (Auto) [place] # (Auto) Eos # (Auto) Baso # (Auto) PT INR APTT Sodium Potassium Chloride Carbon Dioxide Anion Gap BUN Creatinine Est GFR ( Amer) Est GFR (Non-Af Amer) POC Glucose (mg/dL) 152 H Random Glucose Calcium Total Bilirubin AST ALT Alkaline Phosphatase Total Creatine Kinase CK-MB (Mass) Troponin I NT-Pro-B Natriuret Pep Total Protein Albumin Globulin Albumin/Globulin Ratio Urine Color Yellow Urine Clarity Clear Urine pH 5.0 Ur Specific [place] 1.010 Urine Protein Negative Urine Glucose (UA) Normal Urine Ketones Negative Urine Blood Negative Urine Nitrate Negative Urine Bilirubin Negative Urine Urobilinogen 2.0 Ur Leukocyte Esterase Neg Urine WBC (Auto) < 1 Urine RBC (Auto) < 1 Urine Bacteria Rare
--- NOTE | 2018-06-04 10:41 | CP.PCM.CON ---
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 Recent discharge 05/28/18 with similar presentation s/p diuresis and 400cc paracentesis without fluid analysis. Maintained on Lasix 40mg BID on review of nursing facility records, Patient notes minimal change to shortness of breath with wet cough since discharge. Associated bilateral lower extremity swelling with weeping. Admits to worsening abdominal distension for the last two days. Denies nausea, vomiting, hematemesis, fever, chills, recent travel, diarrhea, constipation, melena, hematochezia, confusion, yellowing of skin/eyes, or unintentional weight loss. Recent antibiotic exposure for MRSA leg wound last admission. Prior EGD/colonoscopy 10/2016 showed H. pylori negative gastritis, duodenitis without biopsy, no esophageal varices, adequate bowel prep, and Grade III internal hemorrhoids. Family History- denies liver disease, stomach cancer, colon cancer Social History- quit alcohol over 10 years- prior 6-7 beers daily for at least 20 years, quit tobacco over ten years, denie sillicit drug usse Surgical History- hernia repair, Defibrillator, Pacemaker Review of Systems - Review of Systems Review of Systems: 12-point review of systems negative except for as above Past Patient History - Infectious Disease Hx of Infectious Diseases: None - Past Medical History & Family History Past Medical History?: Yes - Past Social History Smoking Status: Former Smoker - CARDIAC Hx Atrial Fibrillation: Yes Hx Congestive Heart Failure: Yes Hx Hypercholesterolemia: Yes Hx Hypertension: Yes Hx Pacemaker: Yes - PULMONARY Hx Chronic Obstructive Pulmonary Disease (COPD): Yes - NEUROLOGICAL Hx Neurological Disorder: No - HEENT Hx HEENT Problems: No - RENAL Hx Chronic Kidney Disease: No - ENDOCRINE/METABOLIC Hx Diabetes Mellitus Type 2: Yes - HEMATOLOGICAL/ONCOLOGICAL Hx Blood Disorders: No - INTEGUMENTARY Hx Dermatological Problems: Yes (lower leg ulcers) Other/Comment: MRSA of leg - MUSCULOSKELETAL/RHEUMATOLOGICAL Hx Arthritis: Yes - GASTROINTESTINAL Hx Pancreatitis: Yes (eval for possible pancreatitis) - GENITOURINARY/GYNECOLOGICAL Hx Genitourinary Disorders: No - PSYCHIATRIC Hx Substance Use: No - SURGICAL HISTORY Hx Appendectomy: Yes - ANESTHESIA Hx Anesthesia: Yes Hx Anesthesia Reactions: No Hx Malignant Hyperthermia: No Meds Allergies/Adverse Reactions: Allergies Allergy/AdvReac Type Severity Reaction Status Date / Time No Known Allergies Allergy Verified 04/15/18 16:30 - Medications Medications: Current Medications Albuterol/Ipratropium (Duoneb 3 Mg/0.5 Mg (3 Ml) Ud) 3 ml INH RQ6 [facility] Last Admin: 06/04/18 08:10 Dose: Not Given Aspirin (Aspirin Chewable) 81 mg PO DAILY [facility] Carvedilol (Coreg) 3.125 mg PO BID [facility] Docusate Sodium (Colace) 100 mg PO DAILY [facility] Enoxaparin Sodium (Lovenox) 30 mg SC DAILY [facility] Insulin Aspart (Novolog) 1 unit IV [facility]; Protocol Last Admin: 06/04/18 08:00 Dose: Not Given Pantoprazole Sodium (Protonix Ec Tab) 40 mg PO DAILY [facility] Promethazine HCl/Dextromethorphan (Phenergan Dm Syrup) 10 ml PO TID PRN PRN Reason: Cough Rosuvastatin Calcium (Crestor) 5 mg PO HS [facility] Last Admin: 06/03/18 22:51 Dose: 5 mg Sacubitril/Valsartan (Entresto 24 Mg-26 Mg) 1 tab PO 0800,1999 [facility] Last Admin: 06/03/18 22:51 Dose: 1 tab Physical Exam - Constitutional Appears: Non-toxic, No Acute Distress, Chronically Ill - Head Exam Head Exam: ATRAUMATIC, NORMOCEPHALIC - Eye Exam Eye Exam: EOMI, PERRL. absent: Scleral icterus Pupil Exam: PERRL. absent: Miosis, Mydriatic - ENT Exam ENT Exam: Mucous Membranes Moist, Normal Oropharynx - Neck Exam Neck exam: Positive for: Full Rom, Normal Inspection - Respiratory Exam Respiratory Exam: Decreased Breath Sounds, Rhonchi Additional comments: scattered wheezes and rhonchi, decreased breath sounds Right > Left - Cardiovascular Exam Cardiovascular Exam: RRR, +S1, +S2. absent: Gallop, Rubs - GI/Abdominal Exam GI & Abdominal Exam: Distended, Firm, Hypoactive Bowel Sounds, Soft, Tenderness. absent: Organomegaly, Rebound, Rigid Additional comments: diffuse discomfort, decreased bowel sounds, fluid wave - Extremities Exam Additional comments: distal LLE bandage in place - Neurological Exam Neurological exam: Alert, Oriented x3 Additional comments: no asterixis - Psychiatric Exam Psychiatric exam: Normal Affect, Normal Mood - Skin Skin Exam: Intact, Normal Color, Warm Results - Vital Signs Recent Vital Signs: Last Vital Signs Temp 97.4 F L 06/04/18 07:00 Pulse 80 06/04/18 07:00 Resp 18 06/04/18 07:00 BP 101/68 06/04/18 07:00 Pulse Ox 95 06/03/18 23:45 - Labs Result Diagrams: 06/03/18 12:32 06/03/18 12:32 Labs: Laboratory Results - last 24 hr 06/03/18 06/03/18 06/03/18 12:32 12:32 12:32 WBC 7.1 RBC 3.48 L Hgb 8.4 L Hct 28.0 L MCV 80.6 MCH 24.1 L MCHC 29.9 L RDW 20.1 H Plt Count 170 MPV 8.6 Neut % (Auto) 63.5 Lymph % (Auto) 16.8 L [place] % (Auto) 17.1 H Eos % (Auto) 1.8 Baso % (Auto) 0.8 Neut # (Auto) 4.5 Lymph # (Auto) 1.2 [place] # (Auto) 1.2 H Eos # (Auto) 0.1 Baso # (Auto) 0.1 PT 14.2 H INR 1.3 APTT 34 Sodium 138 Potassium 4.8 Chloride 98 Carbon Dioxide 34 H Anion Gap 11 BUN 34 H Creatinine 1.5 Est GFR ( Amer) 57 Est GFR (Non-Af Amer) 47 POC Glucose (mg/dL) Random Glucose 129 H Calcium 7.8 L Total Bilirubin 0.6 AST 38 ALT 10 L Alkaline Phosphatase 106 Total Creatine Kinase 136 CK-MB (Mass) 1.73 Troponin I 0.0120 NT-Pro-B Natriuret Pep 5340 H Total Protein 7.7 Albumin 3.8 Globulin 4.0 H Albumin/Globulin Ratio 1.0 Urine Color Urine Clarity Urine pH Ur Specific [place] Urine Protein Urine Glucose (UA) Urine Ketones Urine Blood Urine Nitrate Urine Bilirubin Urine Urobilinogen Ur Leukocyte Esterase Urine WBC (Auto) Urine RBC (Auto) Urine Bacteria 06/03/18 06/03/18 12:51 21:42 WBC RBC Hgb Hct MCV MCH MCHC RDW Plt Count MPV Neut % (Auto) Lymph % (Auto) [place] % (Auto) Eos % (Auto) Baso % (Auto) Neut # (Auto) Lymph # (Auto) [place] # (Auto) Eos # (Auto) Baso # (Auto) PT INR APTT Sodium Potassium Chloride Carbon Dioxide Anion Gap BUN Creatinine Est GFR ( Amer) Est GFR (Non-Af Amer) POC Glucose (mg/dL) 152 H Random Glucose Calcium Total Bilirubin AST ALT Alkaline Phosphatase Total Creatine Kinase CK-MB (Mass) Troponin I NT-Pro-B Natriuret Pep Total Protein Albumin Globulin Albumin/Globulin Ratio Urine Color Yellow Urine Clarity Clear Urine pH 5.0 Ur Specific [place] 1.010 Urine Protein Negative Urine Glucose (UA) Normal Urine Ketones Negative Urine Blood Negative Urine Nitrate Negative Urine Bilirubin Negative Urine Urobilinogen 2.0 Ur Leukocyte Esterase Neg Urine WBC (Auto) < 1 Urine RBC (Auto) < 1 Urine Bacteria Rare Assessment & Plan - Assessment and Plan (Free Text) Assessment: 68 year old male with PMH of 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 GI consultation for decompensated cirrhosis. Chest xray noted to have right greater than left pleural effusions. Prior EGD/colonoscopy 10/2016 showed H. pylori negative gastritis, duodenitis without biopsy, no esophageal varices, adequate bowel prep, and Grade III internal hemorrhoids. Plan: -MELD-Na 13 -recent discharge 05/28/18 400cc paracentesis without fluid analysis -continue Lasix 40mg BID -add spironolactone 50mg BID and titrate based on clinical response and elect rolytes -ordered Duplex U/S to evaluate portal system for thrombosis -ordered Ultrasound to evaluate for hepatic mass lesion for HCC surveillance -IR documentation- small ascites on ultrasound -given abdominal distension, ordered CT A/P PO/IV contrast with liver protocol -follow up repeat Creatinine for IV contrast administration -ordered AFP -low sodium diet -diagnostic and therapeutic paracentesis ordered with fluid analysis -primary team managing- planned for thoracentesis -will follow clinical course <Evens Edwards - Last Filed: 06/04/18 12:31> Meds - Medications Medications: Current Medications Albuterol/Ipratropium (Duoneb 3 Mg/0.5 Mg (3 Ml) Ud) 3 ml INH RQ6 [facility] Last Admin: 06/04/18 08:10 Dose: Not Given Aspirin (Aspirin Chewable) 81 mg PO DAILY [facility] Carvedilol (Coreg) 3.125 mg PO BID [facility] Docusate Sodium (Colace) 100 mg PO DAILY [facility] Enoxaparin Sodium (Lovenox) 30 mg SC DAILY [facility] Furosemide (Lasix) 40 mg IVP BID [facility] Insulin Aspart (Novolog) 1 unit IV ACHS [facility]; Protocol Last Admin: 06/04/18 08:00 Dose: Not Given Pantoprazole Sodium (Protonix Ec Tab) 40 mg PO DAILY [facility] Promethazine HCl/Dextromethorphan (Phenergan Dm Syrup) 10 ml PO TID PRN PRN Reason: Cough Rosuvastatin Calcium (Crestor) 5 mg PO HS [facility] Last Admin: 06/03/18 22:51 Dose: 5 mg Sacubitril/Valsartan (Entresto 24 Mg-26 Mg) 1 tab PO 0800,1999 [facility] Last Admin: 06/03/18 22:51 Dose: 1 tab Spironolactone (Aldactone) 50 mg PO BID [facility] Results - Vital Signs Recent Vital Signs: Last Vital Signs Temp 97.4 F L 06/04/18 07:00 Pulse 80 06/04/18 07:00 Resp 18 06/04/18 07:00 BP 101/68 06/04/18 07:00 Pulse Ox 95 06/03/18 23:45 - Labs Result Diagrams: 06/04/18 11:11 06/04/18 11:11 Labs: Laboratory Results - last 24 hr 06/03/18 06/03/18 06/03/18 12:32 12:32 12:32 WBC 7.1 RBC 3.48 L Hgb 8.4 L Hct 28.0 L MCV 80.6 MCH 24.1 L MCHC 29.9 L RDW 20.1 H Plt Count 170 MPV 8.6 Neut % (Auto) 63.5 Lymph % (Auto) 16.8 L [place] % (Auto) 17.1 H Eos % (Auto) 1.8 Baso % (Auto) 0.8 Neut # (Auto) 4.5 Lymph # (Auto) 1.2 [place] # (Auto) 1.2 H Eos # (Auto) 0.1 Baso # (Auto) 0.1 PT 14.2 H INR 1.3 APTT 34 Sodium 138 Potassium 4.8 Chloride 98 Carbon Dioxide 34 H Anion Gap 11 BUN 34 H Creatinine 1.5 Est GFR ( Amer) 57 Est GFR (Non-Af Amer) 47 POC Glucose (mg/dL) Random Glucose 129 H Calcium 7.8 L Phosphorus Magnesium Total Bilirubin 0.6 AST 38 ALT 10 L Alkaline Phosphatase 106 Total Creatine Kinase 136 CK-MB (Mass) 1.73 Troponin I 0.0120 NT-Pro-B Natriuret Pep 5340 H Total Protein 7.7 Albumin 3.8 Globulin 4.0 H Albumin/Globulin Ratio 1.0 Urine Color Urine Clarity Urine pH Ur Specific [place] Urine Protein Urine Glucose (UA) Urine Ketones Urine Blood Urine Nitrate Urine Bilirubin Urine Urobilinogen Ur Leukocyte Esterase Urine WBC (Auto) Urine RBC (Auto) Urine Bacteria 06/03/18 06/03/18 06/04/18 12:51 21:42 11:11 WBC 6.9 RBC 3.32 L Hgb 8.2 L Hct 26.7 L MCV 80.5 MCH 24.6 L MCHC 30.6 L RDW 19.7 H Plt Count 175 MPV 8.3 Neut % (Auto) 63.4 Lymph % (Auto) 16.2 L [place] % (Auto) 17.8 H Eos % (Auto) 2.1 Baso % (Auto) 0.5 Neut # (Auto) 4.4 Lymph # (Auto) 1.1 [place] # (Auto) 1.2 H Eos # (Auto) 0.1 Baso # (Auto) 0.0 PT INR APTT Sodium Potassium Chloride Carbon Dioxide Anion Gap BUN Creatinine Est GFR ( Amer) Est GFR (Non-Af Amer) POC Glucose (mg/dL) 152 H Random Glucose Calcium Phosphorus Magnesium Total Bilirubin AST ALT Alkaline Phosphatase Total Creatine Kinase CK-MB (Mass) Troponin I NT-Pro-B Natriuret Pep Total Protein Albumin Globulin Albumin/Globulin Ratio Urine Color Yellow Urine Clarity Clear Urine pH 5.0 Ur Specific [place] 1.010 Urine Protein Negative Urine Glucose (UA) Normal Urine Ketones Negative Urine Blood Negative Urine Nitrate Negative Urine Bilirubin Negative Urine Urobilinogen 2.0 Ur Leukocyte Esterase Neg Urine WBC (Auto) < 1 Urine RBC (Auto) < 1 Urine Bacteria Rare 06/04/18 11:11 WBC RBC Hgb Hct MCV MCH MCHC RDW Plt Count MPV Neut % (Auto) Lymph % (Auto) [place] % (Auto) Eos % (Auto) Baso % (Auto) Neut # (Auto) Lymph # (Auto) [place] # (Auto) Eos # (Auto) Baso # (Auto) PT INR APTT Sodium 138 Potassium 4.6 Chloride 99 Carbon Dioxide 33 H Anion Gap 11 BUN 27 H Creatinine 1.3 Est GFR ( Amer) > 60 Est GFR (Non-Af Amer) 55 POC Glucose (mg/dL) Random Glucose 92 D Calcium 8.0 L Phosphorus 2.4 L Magnesium 2.1 Total Bilirubin 0.8 AST 28 ALT 11 L Alkaline Phosphatase 119 Total Creatine Kinase CK-MB (Mass) Troponin I NT-Pro-B Natriuret Pep Total Protein 7.9 Albumin 3.8 Globulin 4.1 H Albumin/Globulin Ratio 0.9 L Urine Color Urine Clarity Urine pH Ur Specific [place] Urine Protein Urine Glucose (UA) Urine Ketones Urine Blood Urine Nitrate Urine Bilirubin Urine Urobilinogen Ur Leukocyte Esterase Urine WBC (Auto) Urine RBC (Auto) Urine Bacteria Attending/Attestation - Attestation I have personally seen and examined this patient.: Yes I have fully participated in the care of the patient.: Yes I have reviewed all pertinent clinical information: Yes Notes (Text): 06/04/18 12:24 I have seen and examined patient with GI fellow. Agree with above documentation with the following additions. In brief, this is a 68 year old male with history of decompensated ETOH cirrhosis, CHF s/p ICD, COPD, HTN, DM, obesity, pleural effusion who presents to hospital with complaint of progressive dyspnea on exertion and abdominal distention. He was recently hospitalized for similar complaints and underwent paracentesis with small volume of ascitic fluid removed (less than 1L). He notes progressive abdominal distention over the past two days along with dyspnea on minimal exertion. He denies abdominal pain, nausea, vomiting, fever/chills, weight loss, rectal bleeding. He has a chronic lower extremity wound with recent antibiotic therapy. He had an EGD/colonoscopy in October 2016 which showed gastritis, duodenitis, no varices, internal hemorrhoids. Decompensated ETOH cirrhosis, admission MELD 13 CHF s/p ICD COPD DM/HTN Obesity Pleural effusion Ascites - Low sodium diet as tolerated - Suggest diagnostic and therapeutic paracentesis - Follow up pulmonary recommendations regarding pleural effusions - Continue with diuretic therapy, monitor creatinine - Obtain abdominal US for HCC surveillance, obtain AFP. Ideally would favor triple phase liver imaging, though patient with elevated creatinine. - Will continue to monitor patient clinical course
[2018-06-04 11:26] LABS: BASO % 0.5 % (0.0-2.0); EOS # 0.1 K/uL (0.0-0.7); EOS % 2.1 % (0.0-4.0); HEMOGLOBIN 8.2 g/dL (12.0-18.0); LYMPH # 1.1 K/uL (1.0-4.3); LYMPH % 16.2 % (20.0-40.0); MEAN CELL VOLUME 80.5 fL (80.0-94.0); MEAN CORPUSCULAR HEMOGLOBIN 24.6 pg (27.0-31.0); MEAN CORPUSCULAR HGB CONC 30.6 g/dL (33.0-37.0); MEAN PLATELET VOLUME 8.3 fL (7.2-11.7); MONO # 1.2 K/uL (0.0-0.8); MONO % 17.8 % (0.0-10.0); NEUT # 4.4 K/uL (1.8-7.0); NEUT % 63.4 % (50.0-75.0); NRBC % 0.7 % (0.0-2.0); RBC 3.32 Mil/uL (4.40-5.90); RED CELL DISTRIBUTION WIDTH 19.7 % (11.5-14.5); WHITE BLOOD COUNT 6.9 K/uL (4.8-10.8)
[2018-06-04] MEDS ORDERED: Iohexol 240 (50 ml) PO ONE ×2 (11:30→13:15)
[2018-06-04 11:46] LABS: ALB/GLOB RATIO 0.9 (1.0-2.1); ALBUMIN 3.8 g/dL (3.5-5.0); ALT/SGPT 11 U/L (21-72); AST/SGOT 28 U/L (17-59); BLOOD UREA NITROGEN 27 mg/dL (9-20); GFR NON-AFRICAN AMERICAN 55
--- NOTE | 2018-06-04 13:53 | US ---
Date of service: 06/04/2018 HISTORY: evaluate portal system for thrombosis COMPARISON: None. TECHNIQUE: Sonographic evaluation of the abdomen. FINDINGS: LIVER: Measures 17.5 cm. Nodular contour to the liver. Fatty infiltration manifest ultrasonographically as increased Echogenicity of the liver parenchyma. No mass. No intrahepatic bile duct dilatation. Bidirectional flow. Pulsatile hepato pedal and appetite a few faisal flow identified. GALLBLADDER: Cholelithiasis. Negative study for gallbladder wall thickening, pericholecystic fluid, sonographic Dunbar's sign. COMMON BILE DUCT: Measures 5.2 mm. No stones. No dilatation. PANCREAS: Obscured by overlying bowel gas. Non diagnostic assessment of the pancreas RIGHT KIDNEY: Measures 5.3 x 9.9cm. Normal echogenicity. No calculus, mass, or hydronephrosis. LEFT KIDNEY: Measures 5.3 x 12.6cm. Normal echogenicity. No calculus, mass, or hydronephrosis. SPLEEN: Normal in size and contour. No mass. AORTA: Not scanned, of patient related limitations to the study. IVC: Not scanned, patient related limitations to the study. OTHER FINDINGS: Intra-abdominal ascites documented. IMPRESSION: Cholelithiasis. No sonographic evidence of acute cholecystitis. Cirrhotic liver. Portal venous flow: Bidirectional hepato pedal/hepatofugal flow noted. Limitations of the current study, patient compliance issues precluded assessment of the IVC and aorta. Nondiagnostic study of the pancreas obscured by overlying bowel gas.
[2018-06-04] MEDS: Sacubitril/Valsartan 24-26mg Tab PO SCH ×2 (14:07→21:00)
[2018-06-04] MEDS: Pantoprazole 40 mg EC Tab PO SCH (14:08)
--- NOTE | 2018-06-04 14:46 | CP.PCM.PN ---
Subjective - Date & Time of Evaluation Date of Evaluation: 06/04/18 Time of Evaluation: 12:00 - Subjective Subjective: Patient seen and examined Alert, Awake, No acute distress Denies fevers, chest pain, SOB, cough, Hemoptysis Afebrile Patient refuses thoracentesis and is aware of the risks Physical Exam Oxygen Saturation 95% NC General: NAD Cardio: S1. S2, No murmurs, rubs, gallops Resp: Decreased breath sounds Abd: Soft, non-tender, No rebound, rigidity, guarding A/P 1) Bilateral Pleural Effusion, R>L -No leukocytosis -Will speak with patient again about thoracentesis Objective - Vital Signs/Intake and Output Vital Signs (last 24 hours): Temp Pulse Resp BP Pulse Ox 97.4 F L 80 18 131/77 95 06/04/18 07:00 06/04/18 07:00 06/04/18 07:00 06/04/18 14:23 06/03/18 23:45 - Medications Medications: Current Medications Albuterol/Ipratropium (Duoneb 3 Mg/0.5 Mg (3 Ml) Ud) 3 ml INH RQ6 [facility] Last Admin: 06/04/18 13:06 Dose: Not Given Aspirin (Aspirin Chewable) 81 mg PO DAILY [facility] Last Admin: 06/04/18 14:07 Dose: 81 mg Carvedilol (Coreg) 3.125 mg PO BID [facility] Last Admin: 06/04/18 14:08 Dose: 3.125 mg Docusate Sodium (Colace) 100 mg PO DAILY [facility] Last Admin: 06/04/18 14:07 Dose: 100 mg Enoxaparin Sodium (Lovenox) 30 mg SC DAILY [facility] Furosemide (Lasix) 40 mg IVP BID [facility] Last Admin: 06/04/18 14:23 Dose: 40 mg Insulin Aspart (Novolog) 1 unit IV ACHS [facility]; Protocol Last Admin: 06/04/18 13:00 Dose: Not Given Pantoprazole Sodium (Protonix Ec Tab) 40 mg PO DAILY [facility] Last Admin: 06/04/18 14:08 Dose: 40 mg Promethazine HCl/Dextromethorphan (Phenergan Dm Syrup) 10 ml PO TID PRN PRN Reason: Cough Rosuvastatin Calcium (Crestor) 5 mg PO HS [facility] Last Admin: 06/03/18 22:51 Dose: 5 mg Sacubitril/Valsartan (Entresto 24 Mg-26 Mg) 1 tab PO 0800,2000 [facility] Last Admin: 06/04/18 14:07 Dose: 1 tab Spironolactone (Aldactone) 50 mg PO BID [facility] Last Admin: 06/04/18 14:17 Dose: Not Given - Labs Labs: 06/04/18 11:11 06/04/18 11:11 PT 14.2 SECONDS (9.7-12.2) H 06/03/18 12:32 INR 1.3 06/03/18 12:32 APTT 34 SECONDS (21-34) 06/03/18 12:32
[2018-06-04] MEDS ORDERED: Iodixanol 320 MG/ML 100 ML BOTTLE IV ONE (16:44)
--- NOTE | 2018-06-04 18:57 | CARD ---
APPROVED REPORT Date of service: 06/03/2018 EKG Measurement Heart [id number] <Conclusion> Ventricular-paced rhythm Abnormal ECG
--- NOTE | 2018-06-04 19:21 | CP.PCM.PN ---
Subjective - Date & Time of Evaluation Date of Evaluation: 06/04/18 Time of Evaluation: 10:15 - Subjective Subjective: clinically same Objective - Vital Signs/Intake and Output Vital Signs (last 24 hours): Temp Pulse Resp BP Pulse Ox 97.4 F L 85 18 128/88 95 06/04/18 07:00 06/04/18 07:30 06/04/18 07:00 06/04/18 17:51 06/03/18 23:45 - Medications Medications: Current Medications Albuterol/Ipratropium (Duoneb 3 Mg/0.5 Mg (3 Ml) Ud) 3 ml INH RQ6 [facility] Last Admin: 06/04/18 19:19 Dose: Not Given Aspirin (Aspirin Chewable) 81 mg PO DAILY [facility] [place] Last Admin: 06/04/18 14:07 Dose: 81 mg Carvedilol (Coreg) 3.125 mg PO BID [facility] [place] Last Admin: 06/04/18 17:50 Dose: 3.125 mg Docusate Sodium (Colace) 100 mg PO DAILY [facility] [place] Last Admin: 06/04/18 14:07 Dose: 100 mg Enoxaparin Sodium (Lovenox) 30 mg SC DAILY [facility] [place] Furosemide (Lasix) 40 mg IVP BID [facility] [place] Last Admin: 06/04/18 17:51 Dose: 40 mg Lactulose (Enulose) 20 gm PO BID [facility] [place] Last Admin: 06/04/18 17:51 Dose: Not Given Pantoprazole Sodium (Protonix Ec Tab) 40 mg PO DAILY [facility] [place] Last Admin: 06/04/18 14:08 Dose: 40 mg Promethazine HCl/Dextromethorphan (Phenergan Dm Syrup) 10 ml PO TID PRN PRN Reason: Cough Rosuvastatin Calcium (Crestor) 5 mg PO HS [facility] [place] Last Admin: 06/03/18 22:51 Dose: 5 mg Sacubitril/Valsartan (Entresto 24 Mg-26 Mg) 1 tab PO 0800,1999 [facility] [place] Last Admin: 06/04/18 14:07 Dose: 1 tab Spironolactone (Aldactone) 50 mg PO BID [facility] [place] Last Admin: 06/04/18 17:49 Dose: 50 mg - Labs Labs: 06/04/18 11:11 06/04/18 11:11 PT 14.2 SECONDS (9.7-12.2) H 06/03/18 12:32 INR 1.3 06/03/18 12:32 APTT 34 SECONDS (21-34) 06/03/18 12:32 - Constitutional Appears: Well - Head Exam Head Exam: ATRAUMATIC, NORMAL INSPECTION, NORMOCEPHALIC - Eye Exam Eye Exam: EOMI, Normal appearance, PERRL Pupil Exam: NORMAL ACCOMODATION, PERRL - ENT Exam ENT Exam: Mucous Membranes Moist, Normal Exam - Neck Exam Neck Exam: Full ROM, Normal Inspection. absent: Lymphadenopathy - Respiratory Exam Respiratory Exam: Decreased Breath Sounds - Cardiovascular Exam Cardiovascular Exam: REGULAR RHYTHM, +S1, +S2 - GI/Abdominal Exam GI & Abdominal Exam: Soft, Diminished Bowel Sounds - Rectal Exam Rectal Exam: Deferred
--- NOTE | 2018-06-04 20:28 | CP.PCM.PN ---
Subjective - Date & Time of Evaluation Date of Evaluation: 06/04/18 Time of Evaluation: 20:25 - Subjective Subjective: patient has less dyspnea. currently had bowel movement on the floor. Objective - Vital Signs/Intake and Output Vital Signs (last 24 hours): Temp Pulse Resp BP Pulse Ox 97.4 F L 85 18 128/88 95 06/04/18 07:00 06/04/18 07:30 06/04/18 07:00 06/04/18 17:51 06/03/18 23:45 - Medications Medications: Current Medications Albuterol/Ipratropium (Duoneb 3 Mg/0.5 Mg (3 Ml) Ud) 3 ml INH RQ6 [facility] Last Admin: 06/04/18 19:19 Dose: Not Given Aspirin (Aspirin Chewable) 81 mg PO DAILY [facility] Last Admin: 06/04/18 14:07 Dose: 81 mg Carvedilol (Coreg) 3.125 mg PO BID [facility] Last Admin: 06/04/18 17:50 Dose: 3.125 mg Docusate Sodium (Colace) 100 mg PO DAILY [facility] Last Admin: 06/04/18 14:07 Dose: 100 mg Enoxaparin Sodium (Lovenox) 30 mg SC DAILY [facility] Furosemide (Lasix) 40 mg IVP BID [facility] Last Admin: 06/04/18 17:51 Dose: 40 mg Lactulose (Enulose) 20 gm PO BID [facility] Last Admin: 06/04/18 17:51 Dose: Not Given Pantoprazole Sodium (Protonix Ec Tab) 40 mg PO DAILY [facility] Last Admin: 06/04/18 14:08 Dose: 40 mg Promethazine HCl/Dextromethorphan (Phenergan Dm Syrup) 10 ml PO TID PRN PRN Reason: Cough Rosuvastatin Calcium (Crestor) 5 mg PO HS [facility] Last Admin: 06/03/18 22:51 Dose: 5 mg Sacubitril/Valsartan (Entresto 24 Mg-26 Mg) 1 tab PO 0800,1999 [facility] Last Admin: 06/04/18 14:07 Dose: 1 tab Spironolactone (Aldactone) 50 mg PO BID [facility] Last Admin: 06/04/18 17:49 Dose: 50 mg - Labs Labs: 06/04/18 11:11 06/04/18 11:11 PT 14.2 SECONDS (9.7-12.2) H 06/03/18 12:32 INR 1.3 06/03/18 12:32 APTT 34 SECONDS (21-34) 06/03/18 12:32 - Constitutional Appears: Chronically Ill - Head Exam Head Exam: NORMAL INSPECTION - Eye Exam Eye Exam: Normal appearance - ENT Exam ENT Exam: Mucous Membranes Moist - Neck Exam Neck Exam: Full ROM - Respiratory Exam Respiratory Exam: Decreased Breath Sounds - Cardiovascular Exam Cardiovascular Exam: REGULAR RHYTHM - GI/Abdominal Exam GI & Abdominal Exam: Distended, Hypoactive Bowel Sounds - Rectal Exam Rectal Exam: Deferred - Extremities Exam Extremities Exam: Pedal Edema - Back Exam Back Exam: NORMAL INSPECTION - Neurological Exam Neurological Exam: Alert - Psychiatric Exam Psychiatric exam: Normal Affect - Skin Skin Exam: Normal Color Assessment and Plan (1) NYHA class 3 acute on chronic systolic heart failure Assessment & Plan: continue diuretic therapy Status: Chronic (2) Ascites Assessment & Plan: per IR Status: Acute (3) CAD (coronary artery disease) Assessment & Plan: no current angina Status: Acute (4) Hypertension Assessment & Plan: blood pressure is controlled. Status: Chronic
[2018-06-05] MEDS: Albuterol-Ipratrop 3 mg / 0.5 (3 ml) UD INH SCH ×4 (01:14→19:35)
--- NOTE | 2018-06-05 06:00 | CP.PCM.PN ---
<Sandra Colunga - Last Filed: 06/05/18 07:33> Subjective - Date & Time of Evaluation Date of Evaluation: 06/05/18 Time of Evaluation: 05:57 - Subjective Subjective: Gastroenterology Fellow/PGY6 Progress Note Patient continues to have abdominal distension. States feels better today to lay flat for CT A/P. Cough and shortness of breath improving. Oriented to self only. One bowel movement yesterday. A 12-point review of systems negative except for as above. Objective - Vital Signs/Intake and Output Vital Signs (last 24 hours): Temp Pulse Resp BP Pulse Ox 97.4 F L 86 20 113/67 96 06/05/18 00:00 06/05/18 01:00 06/05/18 00:00 06/05/18 00:00 06/05/18 01:00 Intake and Output: 06/04/18 06/05/18 18:59 06:59 Intake Total 150 Output Total 600 Balance -450 - Medications Medications: Current Medications Albuterol/Ipratropium (Duoneb 3 Mg/0.5 Mg (3 Ml) Ud) 3 ml INH RQ6 [facility] Last Admin: 06/05/18 01:14 Dose: Not Given Aspirin (Aspirin Chewable) 81 mg PO DAILY [facility] Last Admin: 06/04/18 14:07 Dose: 81 mg Carvedilol (Coreg) 3.125 mg PO BID [facility] Last Admin: 06/04/18 17:50 Dose: 3.125 mg Enoxaparin Sodium (Lovenox) 30 mg SC DAILY [facility] Furosemide (Lasix) 40 mg IVP BID [facility] Last Admin: 06/04/18 17:51 Dose: 40 mg Lactulose (Enulose) 20 gm PO BID [facility] Last Admin: 06/04/18 17:51 Dose: Not Given Pantoprazole Sodium (Protonix Ec Tab) 40 mg PO DAILY [facility] Last Admin: 06/04/18 14:08 Dose: 40 mg Promethazine HCl/Dextromethorphan (Phenergan Dm Syrup) 10 ml PO TID PRN PRN Reason: Cough Rosuvastatin Calcium (Crestor) 5 mg PO HS [facility] Last Admin: 06/04/18 22:28 Dose: 5 mg Sacubitril/Valsartan (Entresto 24 Mg-26 Mg) 1 tab PO 08 [facility] Last Admin: 06/04/18 21:00 Dose: 1 tab Spironolactone (Aldactone) 50 mg PO BID [facility] Last Admin: 06/04/18 17:49 Dose: 50 mg - Labs Labs: 06/04/18 11:11 06/04/18 11:11 PT 14.2 SECONDS (9.7-12.2) H 06/03/18 12:32 INR 1.3 06/03/18 12:32 APTT 34 SECONDS (21-34) 06/03/18 12:32 - Constitutional Appears: Non-toxic, No Acute Distress, Confused - Head Exam Head Exam: ATRAUMATIC, NORMOCEPHALIC - Eye Exam Eye Exam: EOMI, PERRL, Scleral icterus Pupil Exam: PERRL. absent: Miosis, Mydriatic - ENT Exam ENT Exam: Mucous Membranes Moist, Normal Oropharynx - Neck Exam Neck Exam: Full ROM, Normal Inspection - Respiratory Exam Respiratory Exam: Clear to Ausculation Bilateral. absent: Rales, Rhonchi, Wheezes - Cardiovascular Exam Cardiovascular Exam: RRR, +S1, +S2 - GI/Abdominal Exam GI & Abdominal Exam: Distended, Tenderness, Normal Bowel Sounds. absent: Firm, Guarding, Rigid, Organomegaly, Rebound - Extremities Exam Additional comments: B/L LE 2+ pitting edema, LLE bandage - Neurological Exam Neurological Exam: Alert, Awake Additional comments: oriented to self , no asterixis - Psychiatric Exam Psychiatric exam: Agitated - Skin Skin Exam: Dry, Intact, Normal Color, Warm Assessment and Plan - Assessment and Plan (Free Text) Assessment: 68 year old male with PMH of 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 Recent discharge 05/28/18 400cc paracentesis without fluid analysis Active treatment of decompensated cirrhosis secondary to new onset Grade 1 hepatic encephalopathy and voloume overload with likely CHF decompensation- noted to have right greater than left pleural effusions. Prior EGD/colonoscopy 10/2016 showed H. pylori negative gastritis, duodenitis without biopsy, no esophageal varices, adequate bowel prep, and Grade III internal hemorrhoids. Plan: -MELD-Na 13 -new onset hepatic encephalopathy -started Lactulose 20mg BID, titrate to 2-3 bowel movements daily -ordered blood cultures -IR documentation- small ascites on ultrasound- no paracentesis -continue Lasix 40mg BID and spironolactone 50mg BID, follow diuresis response and titrate -monitor electrolytes, urine output 600cc last 24 hours -low sodium diet -AFP 2.0, counselled patient to obtain CT A/P PO/IV contrast with liver protocol today -Duplex U/S - bidirectional flow of portal vein -cardiology and primary managing- pain control and CHF management -refused thoracentesis -will follow clinical course <Evens Edwards - Last Filed: 06/05/18 10:02> Objective - Vital Signs/Intake and Output Vital Signs (last 24 hours): Temp Pulse Resp BP Pulse Ox 97.4 F L 86 20 113/67 96 06/05/18 00:00 06/05/18 01:00 06/05/18 00:00 06/05/18 00:00 06/05/18 01:00 Intake and Output: 06/05/18 06/05/18 06:59 18:59 Intake Total 150 Output Total 600 Balance -450 - Medications Medications: Current Medications Albuterol/Ipratropium (Duoneb 3 Mg/0.5 Mg (3 Ml) Ud) 3 ml INH RQ6 [facility] Last Admin: 06/05/18 07:45 Dose: 3 ml Aspirin (Aspirin Chewable) 81 mg PO DAILY [facility] Last Admin: 06/04/18 14:07 Dose: 81 mg Carvedilol (Coreg) 3.125 mg PO BID [facility] Last Admin: 06/04/18 17:50 Dose: 3.125 mg Enoxaparin Sodium (Lovenox) 30 mg SC DAILY [facility] Furosemide (Lasix) 40 mg IVP BID [facility] Last Admin: 06/04/18 17:51 Dose: 40 mg Lactulose (Enulose) 20 gm PO BID [facility] Last Admin: 06/04/18 17:51 Dose: Not Given Pantoprazole Sodium (Protonix Ec Tab) 40 mg PO DAILY [facility] Last Admin: 06/04/18 14:08 Dose: 40 mg Promethazine HCl/Dextromethorphan (Phenergan Dm Syrup) 10 ml PO TID PRN PRN Reason: Cough Rosuvastatin Calcium (Crestor) 5 mg PO HS [facility] Last Admin: 06/04/18 22:28 Dose: 5 mg Sacubitril/Valsartan (Entresto 24 Mg-26 Mg) 1 tab PO 0800,1999 [facility] Last Admin: 06/04/18 21:00 Dose: 1 tab Spironolactone (Aldactone) 50 mg PO BID [facility] Last Admin: 06/04/18 17:49 Dose: 50 mg - Labs Labs: 06/04/18 11:11 06/04/18 11:11 PT 14.2 SECONDS (9.7-12.2) H 06/03/18 12:32 INR 1.3 06/03/18 12:32 APTT 34 SECONDS (21-34) 06/03/18 12:32 Attending/Attestation - Attestation I have personally seen and examined this patient.: Yes I have fully participated in the care of the patient.: Yes I have reviewed all pertinent clinical information, including history, physical exam and plan: Yes Notes (Text): 06/05/18 09:58 I have seen and examined patient with GI fellow. No acute events overnight, he is seen sitting at side of bed, appears agitated. He refused thoracentesis yesterday and is requesting to leave hospital. He remains only oriented to person, not to place/time. One reported bowel movement yesterday with incontinence. He denies abdominal pain, nausea, vomiting, fever/chills. Tolerating PO diet without difficulty. Review of vitals from today are normal. Decompensated ETOH cirrhosis CHF s/p ICD Pleural effusion, recurrent Ascites COPD DM/HTN Chronic lower extremity ulcer Obesity - Low sodium diet as tolerated - Maintain lactulose therapy for HE prevention, titrate so patient has 3 bowel movements daily - Continue with diuretic therapy and monitor creatinine - Suggest CT imaging given progressive abdominal distention - Follow up pulmonary recommendation for recurrent b/l pleural effusions - Will continue to monitor patient clinical course
[2018-06-05] MEDS ORDERED: Lidocaine Hydrochloride 5 ML INJ ONE (10:02)
--- NOTE | 2018-06-05 10:43 | PCM.SURG1 ---
Surgeon's Initial Post Op Note - Surgeon's Notes Surgeon: Som Randle MD [employer] Operator: NONE Type of Anesthesia: Local Pre-Operative Diagnosis: Right pleural effusion Operative Findings: US showed large right pleural effusion Post-Operative Diagnosis: Right pleural effusion Operation Performed: US guided right thoracentesis Specimen/Specimens Removed: 1.5 liters of straw colored fluid Estimated Blood Loss: EBL {In ML}: 0 Blood Products Given: N/A Drains Used: No Drains Post-Op Condition: Fair Date of Surgery/Procedure: 06/05/18 Time of Surgery/Procedure: 10:40
--- NOTE | 2018-06-05 11:43 | CP.PCM.PN ---
Subjective - Date & Time of Evaluation Date of Evaluation: 06/05/18 Time of Evaluation: 09:00 - Subjective Subjective: Patient seen and examined at bedside. No overnight events reported. Today, patient reports shortness of breath, orthopnea, and swollen feet. He denies any fevers, chills, chest pain, abdominal pain, nausea or vomiting. Patient states that anytime he goes to urinate he has an expoloding bowel movement has well. He also states that he is open to thoracentesis. Objective - Vital Signs/Intake and Output Vital Signs (last 24 hours): Temp Pulse Resp BP Pulse Ox 97.4 F L 86 20 113/67 96 06/05/18 00:00 06/05/18 01:00 06/05/18 00:00 06/05/18 00:00 06/05/18 01:00 Intake and Output: 06/05/18 06/05/18 06:59 18:59 Intake Total 150 Output Total 600 Balance -450 - Medications Medications: Current Medications Albuterol/Ipratropium (Duoneb 3 Mg/0.5 Mg (3 Ml) Ud) 3 ml INH RQ6 [facility] Last Admin: 06/05/18 07:45 Dose: 3 ml Aspirin (Aspirin Chewable) 81 mg PO DAILY [facility] Last Admin: 06/04/18 14:07 Dose: 81 mg Carvedilol (Coreg) 3.125 mg PO BID [facility] Last Admin: 06/04/18 17:50 Dose: 3.125 mg Enoxaparin Sodium (Lovenox) 30 mg SC DAILY [facility] Furosemide (Lasix) 40 mg IVP BID [facility] Last Admin: 06/04/18 17:51 Dose: 40 mg Lactulose (Enulose) 20 gm PO BID [facility] Last Admin: 06/04/18 17:51 Dose: Not Given Pantoprazole Sodium (Protonix Ec Tab) 40 mg PO DAILY [facility] Last Admin: 06/04/18 14:08 Dose: 40 mg Promethazine HCl/Dextromethorphan (Phenergan Dm Syrup) 10 ml PO TID PRN PRN Reason: Cough Rosuvastatin Calcium (Crestor) 5 mg PO HS [facility] Last Admin: 06/04/18 22:28 Dose: 5 mg Sacubitril/Valsartan (Entresto 24 Mg-26 Mg) 1 tab PO 799 [facility] Last Admin: 06/04/18 21:00 Dose: 1 tab Spironolactone (Aldactone) 50 mg PO BID [facility] Last Admin: 06/04/18 17:49 Dose: 50 mg - Labs Labs: 06/04/18 11:11 06/04/18 11:11 PT 14.2 SECONDS (9.7-12.2) H 06/03/18 12:32 INR 1.3 06/03/18 12:32 APTT 34 SECONDS (21-34) 06/03/18 12:32 - Constitutional Appears: Non-toxic, No Acute Distress - Head Exam Head Exam: ATRAUMATIC, NORMAL INSPECTION, NORMOCEPHALIC - Eye Exam Eye Exam: EOMI, Scleral icterus - ENT Exam ENT Exam: Mucous Membranes Moist - Neck Exam Neck Exam: Full ROM, Normal Inspection - Respiratory Exam Respiratory Exam: Accessory Muscle Use, Decreased Breath Sounds (Right Lower Lung. ), Rales (Left Lower Lung ). absent: Wheezes, Respiratory Distress, Stridor - Cardiovascular Exam Cardiovascular Exam: RRR, +S1, +S2 - GI/Abdominal Exam GI & Abdominal Exam: Distended, Firm, Tenderness, Rebound. absent: Guarding, Soft - Extremities Exam Extremities Exam: Pedal Edema (+1). absent: Normal Inspection Additional comments: Dressing on Left Lower Ext. - Neurological Exam Neurological Exam: Alert, Awake Additional comments: No Asterixis - Psychiatric Exam Psychiatric exam: Normal Affect, Normal Mood - Skin Skin Exam: Dry, Intact, Normal Color, Warm Additional comments: Regions of hyperpigmentation on lower ext. Assessment and Plan - Assessment and Plan (Free Text) Assessment: 68 year old male with PMH of 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 Recent discharge 05/28/18 400cc paracentesis without fluid analysis Plan: Recurrent Pleural effusions -CXR (Admission): showed Worsening bilateral pleural effusions, larger on the right -Thoracentesis Today -Discussed the case with Dr Randle, patient for possible thoracentesis on Saturday -Pulmonology on consult, Dr Lopez, help appreciated Decompensated alcoholic cirrhosis, ascites -MELD 13 on admission -Labs: AFP-WNL. -GI on consult, Dr Edwards, help appreciated -Abdominal US (06/04/18): showed Cholelithiasis. No sonographic evidence of acute cholecystitis. Cirrhotic liver. Portal venous flow: Bidirectional hepato pedal/hepatofugal flow noted.Limitations of the current study, patient compliance issues precluded assessment of the IVC and aorta. Nondiagnostic study of the pancreas obscured by overlying bowel gas. (see full report) -Triple phase CT ordered & PENDING. Paracentesis: F/U Mgmt: Aldactone 50mg PO BID, Lasix 40mg IVP BID Systolic CHF s/p AICD -BNP elevated on admission -Last echo 07/2017 showed EF 10-20%, moderate concentric LVH with severe global hypokinesis, moderate to severe TR, severe pulm HTN (see full report) -Cardiology on consult, Dr Rouse, help appreciated Mgmt: Entresto, Coreg 3.125mg PO BID, Aspirin 81mg PO daily, Crestor 5mg PO HS Chest pain (Resolved) -Initial troponin negative, trend Q6H -EKG on admission showed ventricular paced rhythm, 78 bpm -Monitor on telemetry COPD -Duonebs prn DM -ISS and accuchecks ACHS HTN -Continue to monitor, Patient has been normotensive. GI/DVT ppx: Lovenox 30 units SC daily Plan discussed with Dr Mariluz Goodman, DO PGY-2
[2018-06-05 11:54] LABS: BASO % 0.7 % (0.0-2.0); EOS # 0.1 K/uL (0.0-0.7); EOS % 2.2 % (0.0-4.0); HEMOGLOBIN 8.6 g/dL (12.0-18.0); LYMPH # 1.2 K/uL (1.0-4.3); LYMPH % 19.8 % (20.0-40.0); MEAN CORPUSCULAR HEMOGLOBIN 24.4 pg (27.0-31.0); MEAN CORPUSCULAR HGB CONC 30.5 g/dL (33.0-37.0); MEAN PLATELET VOLUME 8.6 fL (7.2-11.7); MONO # 0.9 K/uL (0.0-0.8); MONO % 15.5 % (0.0-10.0); NEUT # 3.7 K/uL (1.8-7.0); NEUT % 61.8 % (50.0-75.0); NRBC % 0.6 % (0.0-2.0); RBC 3.51 Mil/uL (4.40-5.90); RED CELL DISTRIBUTION WIDTH 20.3 % (11.5-14.5)
[2018-06-05 11:55] LABS: INR 1.4; PROTHROMBIN TIME 15.3 SECONDS (9.7-12.2)
[2018-06-05] MEDS: Sacubitril/Valsartan 24-26mg Tab PO SCH ×2 (11:55→21:01)
[2018-06-05] MEDS: Enoxaparin 30 mg Syringe SC SCH (11:56)
[2018-06-05 12:16] LABS: ALBUMIN 3.8 g/dL (3.5-5.0); ALT/SGPT 8 U/L (21-72); AST/SGOT 32 U/L (17-59); BLOOD UREA NITROGEN 24 mg/dL (9-20); CALCIUM 8.2 mg/dl (8.6-10.4); GFR NON-AFRICAN AMERICAN > 60
[2018-06-05 12:36] LABS: BODY FLUID TYPE PLEURAL
[2018-06-05 13:06] LABS: BF GROSS APPEARANCE SL CLOUDY (CLEAR); BODY FLUID MONO/MACROPHAGE 28 % (0-0); BODY FLUID TOTAL COUNT 100 (0-0)
--- NOTE | 2018-06-05 17:39 | CP.PCM.PN ---
Subjective - Date & Time of Evaluation Date of Evaluation: 06/05/18 Time of Evaluation: 11:20 - Subjective Subjective: Patient seen and examined Alert, Awake, No acute distress Denies fevers, chest pain, SOB, cough, Hemoptysis Afebrile Right Sided Guided Thoracentesis was done 06/05 and 1.5 liters of straw colored fluid was collected Breath sounds on the right are improving s/p thoracentesis Physical Exam Oxygen Saturation 96% NC General: NAD Cardio: S1. S2, No murmurs, rubs, gallops Resp: Decreased breathsounds Abd: Distended A/P 1) Bilateral Pleural Effusion, R>L -No leukocytosis -continue current medications -Fluid analysis Objective - Vital Signs/Intake and Output Vital Signs (last 24 hours): Temp Pulse Resp BP Pulse Ox 97.4 F L 85 20 119/74 98 06/05/18 16:00 06/05/18 16:30 06/05/18 16:00 06/05/18 16:00 06/05/18 16:30 Intake and Output: 06/05/18 06/05/18 06:59 18:59 Intake Total 150 Output Total 600 Balance -450 - Medications Medications: Current Medications Albuterol/Ipratropium (Duoneb 3 Mg/0.5 Mg (3 Ml) Ud) 3 ml INH RQ6 [facility] Last Admin: 06/05/18 13:30 Dose: Not Given Aspirin (Aspirin Chewable) 81 mg PO DAILY [facility] Last Admin: 06/05/18 11:55 Dose: 81 mg Carvedilol (Coreg) 3.125 mg PO BID [facility] Last Admin: 06/05/18 11:55 Dose: 3.125 mg Enoxaparin Sodium (Lovenox) 30 mg SC DAILY [facility] Last Admin: 06/05/18 11:56 Dose: 30 mg Furosemide (Lasix) 40 mg IVP BID [facility] Last Admin: 06/05/18 11:55 Dose: 40 mg Lactulose (Enulose) 20 gm PO BID [facility] Last Admin: 06/05/18 11:55 Dose: 20 gm Pantoprazole Sodium (Protonix Ec Tab) 40 mg PO DAILY [facility] Last Admin: 06/04/18 14:08 Dose: 40 mg Promethazine HCl/Dextromethorphan (Phenergan Dm Syrup) 10 ml PO TID PRN PRN Reason: Cough Rosuvastatin Calcium (Crestor) 5 mg PO HS [facility] Last Admin: 06/04/18 22:28 Dose: 5 mg Sacubitril/Valsartan (Entresto 24 Mg-26 Mg) 1 tab PO 0800,1999 [facility] Last Admin: 06/05/18 11:55 Dose: 1 tab Spironolactone (Aldactone) 50 mg PO BID [facility] Last Admin: 06/05/18 11:55 Dose: 50 mg - Labs Labs: 06/05/18 11:37 06/05/18 11:37 PT 15.3 SECONDS (9.7-12.2) H 06/05/18 11:37 INR 1.4 06/05/18 11:37 APTT 34 SECONDS (21-34) 06/03/18 12:32
--- NOTE | 2018-06-05 17:57 | CP.PCM.PN ---
Subjective - Date & Time of Evaluation Date of Evaluation: 06/05/18 Time of Evaluation: 17:40 - Subjective Subjective: patient is s/p thoracentesis. He is eating dinner. he feels well Objective - Vital Signs/Intake and Output Vital Signs (last 24 hours): Temp Pulse Resp BP Pulse Ox 97.4 F L 85 20 119/74 98 06/05/18 16:00 06/05/18 16:30 06/05/18 16:00 06/05/18 16:00 06/05/18 16:30 Intake and Output: 06/05/18 06/05/18 06:59 18:59 Intake Total 150 Output Total 600 Balance -450 - Medications Medications: Current Medications Albuterol/Ipratropium (Duoneb 3 Mg/0.5 Mg (3 Ml) Ud) 3 ml INH RQ6 [facility] Last Admin: 06/05/18 13:30 Dose: Not Given Aspirin (Aspirin Chewable) 81 mg PO DAILY [facility] Last Admin: 06/05/18 11:55 Dose: 81 mg Carvedilol (Coreg) 3.125 mg PO BID [facility] Last Admin: 06/05/18 11:55 Dose: 3.125 mg Enoxaparin Sodium (Lovenox) 30 mg SC DAILY [facility] Last Admin: 06/05/18 11:56 Dose: 30 mg Furosemide (Lasix) 40 mg IVP BID [facility] Last Admin: 06/05/18 11:55 Dose: 40 mg Lactulose (Enulose) 20 gm PO BID [facility] Last Admin: 06/05/18 11:55 Dose: 20 gm Pantoprazole Sodium (Protonix Ec Tab) 40 mg PO DAILY [facility] Last Admin: 06/04/18 14:08 Dose: 40 mg Promethazine HCl/Dextromethorphan (Phenergan Dm Syrup) 10 ml PO TID PRN PRN Reason: Cough Rosuvastatin Calcium (Crestor) 5 mg PO HS [facility] Last Admin: 06/04/18 22:28 Dose: 5 mg Sacubitril/Valsartan (Entresto 24 Mg-26 Mg) 1 tab PO 0800,1999 [facility] Last Admin: 06/05/18 11:55 Dose: 1 tab Spironolactone (Aldactone) 50 mg PO BID [facility] Last Admin: 06/05/18 11:55 Dose: 50 mg - Labs Labs: 06/05/18 11:37 06/05/18 11:37 PT 15.3 SECONDS (9.7-12.2) H 06/05/18 11:37 INR 1.4 06/05/18 11:37 APTT 34 SECONDS (21-34) 06/03/18 12:32 - Constitutional Appears: Non-toxic - Head Exam Head Exam: NORMAL INSPECTION - Eye Exam Eye Exam: Normal appearance - ENT Exam ENT Exam: Mucous Membranes Moist - Neck Exam Neck Exam: Full ROM - Respiratory Exam Respiratory Exam: Decreased Breath Sounds - Cardiovascular Exam Cardiovascular Exam: REGULAR RHYTHM - GI/Abdominal Exam GI & Abdominal Exam: Normal Bowel Sounds - Rectal Exam Rectal Exam: Deferred - Extremities Exam Extremities Exam: absent: Pedal Edema - Back Exam Back Exam: NORMAL INSPECTION - Neurological Exam Neurological Exam: Alert - Psychiatric Exam Psychiatric exam: Normal Affect - Skin Skin Exam: Normal Color Assessment and Plan (1) NYHA class 3 acute on chronic systolic heart failure Assessment & Plan: improved with diuretic therapy. I discussed medical therapy. volume status is improved. Status: Chronic (2) Ascites Status: Acute (3) CAD (coronary artery disease) Assessment & Plan: stable. no current angina Status: Acute (4) Hypertension Assessment & Plan: blood pressure is well controlled. Status: Chronic
--- NOTE | 2018-06-05 19:53 | CP.PCM.PN ---
Subjective - Date & Time of Evaluation Date of Evaluation: 06/05/18 Time of Evaluation: 10:00 - Subjective Subjective: clinically same Objective - Vital Signs/Intake and Output Vital Signs (last 24 hours): Temp Pulse Resp BP Pulse Ox 97.4 F L 85 20 119/74 98 06/05/18 16:00 06/05/18 16:30 06/05/18 16:00 06/05/18 16:00 06/05/18 16:30 - Medications Medications: Current Medications Albuterol/Ipratropium (Duoneb 3 Mg/0.5 Mg (3 Ml) Ud) 3 ml INH RQ6 [facility] Last Admin: 06/05/18 19:35 Dose: Not Given Aspirin (Aspirin Chewable) 81 mg PO DAILY [facility] Last Admin: 06/05/18 11:55 Dose: 81 mg Carvedilol (Coreg) 3.125 mg PO BID [facility] Last Admin: 06/05/18 11:55 Dose: 3.125 mg Enoxaparin Sodium (Lovenox) 30 mg SC DAILY [facility] Last Admin: 06/05/18 11:56 Dose: 30 mg Furosemide (Lasix) 40 mg IVP BID [facility] Last Admin: 06/05/18 11:55 Dose: 40 mg Lactulose (Enulose) 20 gm PO BID [facility] Last Admin: 06/05/18 11:55 Dose: 20 gm Pantoprazole Sodium (Protonix Ec Tab) 40 mg PO DAILY [facility] Last Admin: 06/04/18 14:08 Dose: 40 mg Promethazine HCl/Dextromethorphan (Phenergan Dm Syrup) 10 ml PO TID PRN PRN Reason: Cough Rosuvastatin Calcium (Crestor) 5 mg PO HS [facility] Last Admin: 06/04/18 22:28 Dose: 5 mg Sacubitril/Valsartan (Entresto 24 Mg-26 Mg) 1 tab PO 0800,1999 [facility] Last Admin: 06/05/18 11:55 Dose: 1 tab Spironolactone (Aldactone) 50 mg PO BID [facility] Last Admin: 06/05/18 11:55 Dose: 50 mg - Labs Labs: 06/05/18 11:37 06/05/18 11:37 PT 15.3 SECONDS (9.7-12.2) H 06/05/18 11:37 INR 1.4 06/05/18 11:37 APTT 34 SECONDS (21-34) 06/03/18 12:32 - Constitutional Appears: Well - Head Exam Head Exam: ATRAUMATIC, NORMAL INSPECTION, NORMOCEPHALIC - Eye Exam Eye Exam: EOMI, Normal appearance, PERRL Pupil Exam: NORMAL ACCOMODATION, PERRL - ENT Exam ENT Exam: Mucous Membranes Moist, Normal Exam - Neck Exam Neck Exam: Full ROM, Normal Inspection. absent: Lymphadenopathy - Respiratory Exam Respiratory Exam: Decreased Breath Sounds - Cardiovascular Exam Cardiovascular Exam: REGULAR RHYTHM, +S1, +S2 - GI/Abdominal Exam GI & Abdominal Exam: Soft, Diminished Bowel Sounds - Rectal Exam Rectal Exam: Deferred
[2018-06-06] MEDS: Albuterol-Ipratrop 3 mg / 0.5 (3 ml) UD INH SCH ×4 (01:27→20:32)
--- NOTE | 2018-06-06 06:20 | CP.PCM.PN ---
<Sandra Colunga - Last Filed: 06/06/18 07:29> Subjective - Date & Time of Evaluation Date of Evaluation: 06/06/18 Time of Evaluation: 06:17 - Subjective Subjective: Gastroenterology Fellow/PGY6 Progress Note Oriented to self, place, and time. Notes he wasn't himself and didn't know what was going on the last two days. Shortness of breath improved after thoracentesis. Tolerated regular diet. Three bowel movements yesterday. A 12- point review of systems negative except for as above. Objective - Vital Signs/Intake and Output Vital Signs (last 24 hours): Temp Pulse Resp BP Pulse Ox 97.8 F 89 20 123/73 97 06/05/18 23:15 06/06/18 01:00 06/05/18 23:15 06/05/18 23:15 06/06/18 00:00 - Medications Medications: Current Medications Albuterol/Ipratropium (Duoneb 3 Mg/0.5 Mg (3 Ml) Ud) 3 ml INH RQ6 [facility] Last Admin: 06/06/18 01:27 Dose: Not Given Aspirin (Aspirin Chewable) 81 mg PO DAILY [facility] Last Admin: 06/05/18 11:55 Dose: 81 mg Carvedilol (Coreg) 3.125 mg PO BID [facility] Last Admin: 06/05/18 21:00 Dose: 3.125 mg Enoxaparin Sodium (Lovenox) 30 mg SC DAILY [facility] Last Admin: 06/05/18 11:56 Dose: 30 mg Furosemide (Lasix) 40 mg IVP BID [facility] Last Admin: 06/05/18 20:59 Dose: 40 mg Lactulose (Enulose) 20 gm PO DAILY [facility] Pantoprazole Sodium (Protonix Ec Tab) 40 mg PO DAILY [facility] Last Admin: 06/04/18 14:08 Dose: 40 mg Promethazine HCl/Dextromethorphan (Phenergan Dm Syrup) 10 ml PO TID PRN PRN Reason: Cough Rosuvastatin Calcium (Crestor) 5 mg PO HS [facility] Last Admin: 06/05/18 22:36 Dose: 5 mg Sacubitril/Valsartan (Entresto 24 Mg-26 Mg) 1 tab PO 0800,1999 [facility] Last Admin: 06/05/18 21:01 Dose: 1 tab Spironolactone (Aldactone) 50 mg PO BID [facility] Last Admin: 06/05/18 21:00 Dose: 50 mg - Labs Labs: 06/05/18 11:37 06/05/18 11:37 PT 15.3 SECONDS (9.7-12.2) H 06/05/18 11:37 INR 1.4 06/05/18 11:37 APTT 34 SECONDS (21-34) 06/03/18 12:32 - Constitutional Appears: Non-toxic, No Acute Distress - Head Exam Head Exam: ATRAUMATIC, NORMOCEPHALIC - Eye Exam Eye Exam: EOMI, PERRL Pupil Exam: PERRL. absent: Miosis, Mydriatic - ENT Exam ENT Exam: Mucous Membranes Moist, Normal Oropharynx - Neck Exam Neck Exam: Full ROM, Normal Inspection - Respiratory Exam Respiratory Exam: Clear to Ausculation Bilateral. absent: Rales, Rhonchi, Wheezes - Cardiovascular Exam Cardiovascular Exam: RRR, +S1, +S2. absent: Gallop, Rubs - GI/Abdominal Exam GI & Abdominal Exam: Distended, Soft, Normal Bowel Sounds, Rebound. absent: Firm, Guarding, Rigid, Tenderness, Organomegaly - Extremities Exam Additional comments: 1-2+ B/L pitting edema - Neurological Exam Neurological Exam: Alert, Awake - Psychiatric Exam Psychiatric exam: Normal Affect, Normal Mood - Skin Skin Exam: Dry, Intact, Normal Color, Warm Assessment and Plan - Assessment and Plan (Free Text) Assessment: 68 year old male with PMH of decompensated alcohol cirrhosis 2/2 ascites (last paracentesis 05/27/18-400cc-no fluid analysis), CHF s/p with Defibrillator/Pacemaker complicated by recurrent pleural effusions requiring tho racentesis, COPD, chronic left leg wound (MRSA positive), HTN, Diabetes, HLD, and Obesity presenting with shortness of breath and abdominal distension. Active treatment of decompensated cirrhosis secondary to new onset Grade 1 hepatic encephalopathy/ascites and recurrent pleural effusions. Prior EGD/colonoscopy 10/2016 showed H. pylori negative gastritis, duodenitis without biopsy, no esophageal varices, adequate bowel prep, and Grade III internal hemorrhoids. Plan: -MELD-Na 13 -decreased Lactulose 20mg BID to daily, titrate to 2-3 bowel movements daily -IR documentation- small ascites on ultrasound- no paracentesis -continue Lasix 40mg BID and spironolactone 50mg BID, follow diuresis response and titrate -pending CT A/P PO/IV contrast with liver protocol -Duplex U/S - bidirectional flow of portal vein -low sodium diet -AFP 2.0 -pulmonology managing -POD1 (06/05) 1.5Liter thoracentesis -will follow clinical course <Evens Edwards - Last Filed: 06/06/18 13:07> Objective - Vital Signs/Intake and Output Vital Signs (last 24 hours): Temp Pulse Resp BP Pulse Ox 97.8 F 79 18 121/72 96 06/06/18 07:00 06/06/18 07:00 06/06/18 07:00 06/06/18 10:15 06/06/18 07:00 - Medications Medications: Current Medications Albuterol/Ipratropium (Duoneb 3 Mg/0.5 Mg (3 Ml) Ud) 3 ml INH RQ6 [facility] Last Admin: 06/06/18 07:58 Dose: Not Given Aspirin (Aspirin Chewable) 81 mg PO DAILY [facility] Last Admin: 06/06/18 10:14 Dose: 81 mg Carvedilol (Coreg) 3.125 mg PO BID [facility] Last Admin: 06/06/18 10:14 Dose: 3.125 mg Enoxaparin Sodium (Lovenox) 30 mg SC DAILY [facility] Last Admin: 06/06/18 10:15 Dose: 30 mg Furosemide (Lasix) 40 mg IVP BID [facility] Last Admin: 06/06/18 10:15 Dose: 40 mg Lactulose (Enulose) 20 gm PO DAILY [facility] Last Admin: 06/06/18 10:14 Dose: 20 gm Pantoprazole Sodium (Protonix Ec Tab) 40 mg PO DAILY [facility] Last Admin: 06/06/18 10:15 Dose: 40 mg Promethazine HCl/Dextromethorphan (Phenergan Dm Syrup) 10 ml PO TID PRN PRN Reason: Cough Rosuvastatin Calcium (Crestor) 5 mg PO HS [facility] Last Admin: 06/05/18 22:36 Dose: 5 mg Sacubitril/Valsartan (Entresto 24 Mg-26 Mg) 1 tab PO 0800,1999 [facility] Last Admin: 03/22/19 10:14 Dose: 1 tab Spironolactone (Aldactone) 50 mg PO BID [facility] Last Admin: 06/06/18 10:15 Dose: 50 mg - Labs Labs: 06/06/18 07:20 06/06/18 07:20 PT 15.3 SECONDS (9.7-12.2) H 06/05/18 11:37 INR 1.4 06/05/18 11:37 APTT 34 SECONDS (21-34) 06/03/18 12:32 Attending/Attestation - Attestation I have personally seen and examined this patient.: Yes I have fully participated in the care of the patient.: Yes I have reviewed all pertinent clinical information, including history, physical exam and plan: Yes Notes (Text): 06/06/18 13:04 I have seen and examined patient with GI fellow. No acute events overnight, he is seen sitting at side of bed without any complaints. He denies abdominal pain, nausea, vomiting, fever/chills, dyspnea. Tolerating PO diet without difficulty. Review of vitals from today are normal. Decompensated ETOH cirrhosis Pleural effusion - s/p thoracentesis yesterday with 1.5 L removed CHF s/p ICD COPD DM/HTN LE ulcer - Low sodium diet as tolerated - Continue with lactulose therapy for HE prevention - Follow up pulmonary recommendations regarding recurrent pleural effusion - Continue with diuretic therapy, monitor creatinine - Awaiting results of abdominal CT imaging given progressive distention - Will continue to monitor patient clinical course
[2018-06-06 07:43] LABS: BASO % 0.3 % (0.0-2.0); EOS # 0.1 K/uL (0.0-0.7); EOS % 1.9 % (0.0-4.0); HEMOGLOBIN 8.3 g/dL (12.0-18.0); LYMPH # 1.2 K/uL (1.0-4.3); LYMPH % 17.3 % (20.0-40.0); MEAN CELL VOLUME 79.5 fL (80.0-94.0); MEAN CORPUSCULAR HEMOGLOBIN 24.6 pg (27.0-31.0); MEAN CORPUSCULAR HGB CONC 30.9 g/dL (33.0-37.0); MEAN PLATELET VOLUME 8.2 fL (7.2-11.7); MONO # 1.2 K/uL (0.0-0.8); MONO % 17.3 % (0.0-10.0); NEUT # 4.2 K/uL (1.8-7.0); NEUT % 63.2 % (50.0-75.0); NRBC % 0.6 % (0.0-2.0); RBC 3.4 Mil/uL (4.40-5.90); RED CELL DISTRIBUTION WIDTH 20.5 % (11.5-14.5); WHITE BLOOD COUNT 6.7 K/uL (4.8-10.8)
[2018-06-06 07:55] LABS: ALB/GLOB RATIO 0.9 (1.0-2.1); ALBUMIN 3.6 g/dL (3.5-5.0); ALT/SGPT 10 U/L (21-72); AST/SGOT 26 U/L (17-59); BLOOD UREA NITROGEN 22 mg/dL (9-20); CALCIUM 8.3 mg/dl (8.6-10.4); GFR NON-AFRICAN AMERICAN 55
[2018-06-06] MEDS ORDERED: Iohexol 240 (50 ml) PO ONE ×2 (09:00→14:15)
[2018-06-06] MEDS: Sacubitril/Valsartan 24-26mg Tab PO SCH ×2 (10:14→20:38)
[2018-06-06] MEDS: Pantoprazole 40 mg EC Tab PO SCH (10:15)
[2018-06-06] MEDS: Enoxaparin 30 mg Syringe SC SCH (10:15)
--- NOTE | 2018-06-06 11:34 | US ---
PROCEDURE: Date of procedure: 06/05/2018 Procedure: 1. Ultrasound-guided Right thoracentesis, CPT 02058 Medications: 5cc 1% Lidocaine HISTORY: Right pleural effusion, shortness of breath TECHNIQUE: Following informed consent ,the Patients' right chest was marked. Procedure time-out was called, and the patient was placed in the sitting position and limited ultrasound showed a large right effusion. The patient's right back was prepped and draped in the usual sterile fashion. After the skin was anesthetized with lidocaine, a drainage catheter was advanced under ultrasound guidance into the pleural space. Ultrasound-guided thoracentesis was performed. A total of 1500 cubic centimeters of straw-colored fluid removed without complication. A Xeroform dressing was applied. IMPRESSION: Ultrasound guided Right thoracentesis. There were no immediate complications.
--- NOTE | 2018-06-06 12:11 | CP.PCM.PN ---
Subjective - Date & Time of Evaluation Date of Evaluation: 06/06/18 Time of Evaluation: 11:00 - Subjective Subjective: Patient seen and examined at bedside. No overnight events reported. Shortness of breath and lower extremity edema has improve. He is having bowel movements and he is now able to control it. No urinary symptoms, fever, chills, chest pain abdominal pain, nausea, or vomiting. Objective - Vital Signs/Intake and Output Vital Signs (last 24 hours): Temp Pulse Resp BP Pulse Ox 97.8 F 79 18 121/72 96 06/06/18 07:00 06/06/18 07:00 06/06/18 07:00 06/06/18 10:15 06/06/18 07:00 - Medications Medications: Current Medications Albuterol/Ipratropium (Duoneb 3 Mg/0.5 Mg (3 Ml) Ud) 3 ml INH RQ6 [facility] Last Admin: 06/06/18 07:58 Dose: Not Given Aspirin (Aspirin Chewable) 81 mg PO DAILY [facility] Last Admin: 06/06/18 10:14 Dose: 81 mg Carvedilol (Coreg) 3.125 mg PO BID [facility] Last Admin: 06/06/18 10:14 Dose: 3.125 mg Enoxaparin Sodium (Lovenox) 30 mg SC DAILY [facility] Last Admin: 06/06/18 10:15 Dose: 30 mg Furosemide (Lasix) 40 mg IVP BID [facility] Last Admin: 06/06/18 10:15 Dose: 40 mg Lactulose (Enulose) 20 gm PO DAILY [facility] Last Admin: 06/06/18 10:14 Dose: 20 gm Pantoprazole Sodium (Protonix Ec Tab) 40 mg PO DAILY [facility] Last Admin: 06/06/18 10:15 Dose: 40 mg Promethazine HCl/Dextromethorphan (Phenergan Dm Syrup) 10 ml PO TID PRN PRN Reason: Cough Rosuvastatin Calcium (Crestor) 5 mg PO HS [facility] Last Admin: 06/05/18 22:36 Dose: 5 mg Sacubitril/Valsartan (Entresto 24 Mg-26 Mg) 1 tab PO 0800,2000 [facility] Last Admin: 06/06/18 10:14 Dose: 1 tab Spironolactone (Aldactone) 50 mg PO BID [facility] Last Admin: 06/06/18 10:15 Dose: 50 mg - Labs Labs: 06/06/18 07:20 06/06/18 07:20 PT 15.3 SECONDS (9.7-12.2) H 06/05/18 11:37 INR 1.4 06/05/18 11:37 APTT 34 SECONDS (21-34) 06/03/18 12:32 - Additional Findings Additional findings: - Constitutional Appears: Non-toxic, No Acute Distress - Head Exam Head Exam: ATRAUMATIC, NORMAL INSPECTION, NORMOCEPHALIC - Eye Exam Eye Exam: EOMI, Scleral icterus - ENT Exam ENT Exam: Mucous Membranes Moist - Neck Exam Neck Exam: Full ROM, Normal Inspection - Respiratory Exam Respiratory Exam: Accessory Muscle Use, Decreased Breath Sounds (Right Lower Lung. ), Rales (Left). absent: Wheezes, Respiratory Distress, Stridor - Cardiovascular Exam Cardiovascular Exam: RRR, +S1, +S2 - GI/Abdominal Exam GI & Abdominal Exam: Distended, Firm, Non-Tender, No Rebound absent: Guarding, Soft - Extremities Exam Extremities Exam: Pedal Edema (+1). absent: Normal Inspection Additional comments: Dressing on Left Lower Ext. - Neurological Exam Neurological Exam: Alert, Awake Additional comments: No Asterixis - Psychiatric Exam Psychiatric exam: Normal Affect, Normal Mood - Skin Skin Exam: Dry, Intact, Normal Color, Warm Additional comments: Regions of hyperpigmentation on lower ext. Assessment and Plan - Assessment and Plan (Free Text) Assessment: 68 year old male with PMH of 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 Recent discharge 05/28/18 400cc paracentesis without fluid analysis Plan: Recurrent Pleural effusions -CXR (Admission): showed Worsening bilateral pleural effusions, larger on the right -Thoracentesis (06/06/18): Drained 1.5 liters of straw colored fluid. -Fluid Analysis (PENDING): -Discussed the case with Dr Randle, patient for possible thoracentesis on Saturday -Pulmonology on consult, Dr Lopez, help appreciated Decompensated alcoholic cirrhosis, ascites -MELD 13 on admission -Labs: AFP-WNL. -GI on consult, Dr Edwards, help appreciated -Abdominal US (06/04/18): showed Cholelithiasis. No sonographic evidence of acute cholecystitis. Cirrhotic liver. Portal venous flow: Bidirectional hepato pedal/hepatofugal flow noted.Limitations of the current study, patient compliance issues precluded assessment of the IVC and aorta. Nondiagnostic study of the pancreas obscured by overlying bowel gas. (see full report) -Triple phase CT ordered & PENDING. Paracentesis: small ascities, Not amendable to drainage per IR. Mgmt: Aldactone 50mg PO BID, Lasix 40mg IVP BID, Lactulose 20gm PO Daily. Systolic CHF s/p AICD -BNP elevated on admission -Last echo 07/2017 showed EF 10-20%, moderate concentric LVH with severe global hypokinesis, moderate to severe TR, severe pulm HTN (see full report) -Cardiology on consult, Dr Rouse, help appreciated Mgmt: Entresto, Coreg 3.125mg PO BID, Aspirin 81mg PO daily, Crestor 5mg PO HS Chest pain (Resolved) -Initial troponin negative, trend Q6H -EKG on admission showed ventricular paced rhythm, 78 bpm -Monitor on telemetry COPD -Duonebs prn DM -ISS and accuchecks ACHS HTN -Continue to monitor, Patient has been normotensive. GI/DVT ppx: Lovenox 30 units SC daily Dispo: Patient to be changed to inpatient status for further evaluation of liver. Patient to go for Liver Protocol triple phase CT scan today. Pleural Fluid analysis needs to be followed up. Physical therapy recommends JAMIE. Will begin discharge planning. Plan discussed with Dr Mariluz Goodman, DO PGY-2
--- NOTE | 2018-06-06 15:30 | CP.PCM.PN ---
Subjective - Date & Time of Evaluation Date of Evaluation: 06/06/18 Time of Evaluation: 10:00 - Subjective Subjective: Patient seen and examined Status post thoracentesis and breathing better Denies cough, denies fever chills, denies chest pain Objective - Vital Signs/Intake and Output Vital Signs (last 24 hours): Temp Pulse Resp BP Pulse Ox 97.8 F 79 18 121/72 96 06/06/18 07:00 06/06/18 07:00 06/06/18 07:00 06/06/18 10:15 06/06/18 07:00 - Medications Medications: Current Medications Albuterol/Ipratropium (Duoneb 3 Mg/0.5 Mg (3 Ml) Ud) 3 ml INH RQ6 [facility] Last Admin: 06/06/18 13:31 Dose: Not Given Aspirin (Aspirin Chewable) 81 mg PO DAILY [facility] Last Admin: 06/06/18 10:14 Dose: 81 mg Carvedilol (Coreg) 3.125 mg PO BID [facility] Last Admin: 06/06/18 10:14 Dose: 3.125 mg Enoxaparin Sodium (Lovenox) 30 mg SC DAILY [facility] Last Admin: 06/06/18 10:15 Dose: 30 mg Furosemide (Lasix) 40 mg IVP BID [facility] Last Admin: 06/06/18 10:15 Dose: 40 mg Lactulose (Enulose) 20 gm PO DAILY [facility] Last Admin: 06/06/18 10:14 Dose: 20 gm Pantoprazole Sodium (Protonix Ec Tab) 40 mg PO DAILY [facility] Last Admin: 06/06/18 10:15 Dose: 40 mg Promethazine HCl/Dextromethorphan (Phenergan Dm Syrup) 10 ml PO TID PRN PRN Reason: Cough Rosuvastatin Calcium (Crestor) 5 mg PO HS [facility] Last Admin: 06/05/18 22:36 Dose: 5 mg Sacubitril/Valsartan (Entresto 24 Mg-26 Mg) 1 tab PO 0800,1999 [facility] Last Admin: 06/06/18 10:14 Dose: 1 tab Spironolactone (Aldactone) 50 mg PO BID [facility] Last Admin: 06/06/18 10:15 Dose: 50 mg - Labs Labs: 06/06/18 07:20 06/06/18 07:20 PT 15.3 SECONDS (9.7-12.2) H 06/05/18 11:37 INR 1.4 06/05/18 11:37 APTT 34 SECONDS (21-34) 06/03/18 12:32 - Head Exam Head Exam: ATRAUMATIC, NORMOCEPHALIC - ENT Exam ENT Exam: Mucous Membranes Moist - Neck Exam Neck Exam: Normal Inspection - Respiratory Exam Respiratory Exam: Clear to Ausculation Bilateral - Cardiovascular Exam Cardiovascular Exam: REGULAR RHYTHM - GI/Abdominal Exam GI & Abdominal Exam: Soft, Normal Bowel Sounds Assessment and Plan (1) Pleural effusion Assessment & Plan: Status post thoracentesis Pleural effusion most likely secondary to ascites Continue present treatment including diuretics Status: Acute
[2018-06-06] MEDS ORDERED: Iodixanol 320 MG/ML 100 ML BOTTLE IV ONE ×2 (16:11→17:53)
--- NOTE | 2018-06-06 17:34 | CP.PCM.PN ---
Subjective - Date & Time of Evaluation Date of Evaluation: 06/06/18 Time of Evaluation: 17:20 - Subjective Subjective: patient feels well. s/p thoracentesis. breathing much better. wants to go home. Objective - Vital Signs/Intake and Output Vital Signs (last 24 hours): Temp Pulse Resp BP Pulse Ox 97.8 F 88 18 121/72 96 06/06/18 07:00 06/06/18 08:00 06/06/18 07:00 06/06/18 10:15 06/06/18 07:00 - Medications Medications: Current Medications Albuterol/Ipratropium (Duoneb 3 Mg/0.5 Mg (3 Ml) Ud) 3 ml INH RQ6 [facility] Last Admin: 06/06/18 13:31 Dose: Not Given Aspirin (Aspirin Chewable) 81 mg PO DAILY [facility] Last Admin: 06/06/18 10:14 Dose: 81 mg Carvedilol (Coreg) 3.125 mg PO BID [facility] Last Admin: 06/06/18 10:14 Dose: 3.125 mg Enoxaparin Sodium (Lovenox) 30 mg SC DAILY [facility] Last Admin: 06/06/18 10:15 Dose: 30 mg Furosemide (Lasix) 40 mg IVP BID [facility] Last Admin: 06/06/18 10:15 Dose: 40 mg Lactulose (Enulose) 20 gm PO DAILY [facility] Last Admin: 06/06/18 10:14 Dose: 20 gm Pantoprazole Sodium (Protonix Ec Tab) 40 mg PO DAILY [facility] Last Admin: 06/06/18 10:15 Dose: 40 mg Promethazine HCl/Dextromethorphan (Phenergan Dm Syrup) 10 ml PO TID PRN PRN Reason: Cough Rosuvastatin Calcium (Crestor) 5 mg PO HS [facility] Last Admin: 06/05/18 22:36 Dose: 5 mg Sacubitril/Valsartan (Entresto 24 Mg-26 Mg) 1 tab PO 0800,1999 [facility] Last Admin: 06/06/18 10:14 Dose: 1 tab Spironolactone (Aldactone) 50 mg PO BID [facility] Last Admin: 06/06/18 10:15 Dose: 50 mg - Labs Labs: 06/06/18 07:20 06/06/18 07:20 PT 15.3 SECONDS (9.7-12.2) H 06/05/18 11:37 INR 1.4 06/05/18 11:37 APTT 34 SECONDS (21-34) 06/03/18 12:32 - Constitutional Appears: Non-toxic - Head Exam Head Exam: NORMAL INSPECTION - Eye Exam Eye Exam: Normal appearance - ENT Exam ENT Exam: Mucous Membranes Moist - Neck Exam Neck Exam: Full ROM - Respiratory Exam Respiratory Exam: Decreased Breath Sounds - Cardiovascular Exam Cardiovascular Exam: REGULAR RHYTHM - GI/Abdominal Exam GI & Abdominal Exam: Normal Bowel Sounds - Rectal Exam Rectal Exam: Deferred - Extremities Exam Extremities Exam: absent: Pedal Edema - Back Exam Back Exam: NORMAL INSPECTION - Neurological Exam Neurological Exam: Alert - Psychiatric Exam Psychiatric exam: Normal Affect - Skin Skin Exam: Normal Color Assessment and Plan (1) NYHA class 3 acute on chronic systolic heart failure Assessment & Plan: improved volume status. Patient is stable for discharge from a cardaic standpoint. continue current medications. outpatient follow up Status: Chronic (2) Ascites Assessment & Plan: hepatic vs heart failure. improving Status: Acute (3) CAD (coronary artery disease) Assessment & Plan: no current angina. Status: Acute (4) Hypertension Assessment & Plan: blood pressure is controlled Status: Chronic
[2018-06-06 19:47] VITALS: RESP 20
--- NOTE | 2018-06-06 20:05 | CP.PCM.PN ---
Subjective - Date & Time of Evaluation Date of Evaluation: 06/06/18 Time of Evaluation: 10:00 - Subjective Subjective: clinically same Objective - Vital Signs/Intake and Output Vital Signs (last 24 hours): Temp Pulse Resp BP Pulse Ox 97.5 F L 80 20 105/66 93 L 06/06/18 19:46 06/06/18 19:46 06/06/18 19:46 06/06/18 19:46 06/06/18 19:46 - Medications Medications: Current Medications Albuterol/Ipratropium (Duoneb 3 Mg/0.5 Mg (3 Ml) Ud) 3 ml INH RQ6 [facility] Last Admin: 06/06/18 13:31 Dose: Not Given Aspirin (Aspirin Chewable) 81 mg PO DAILY [facility] Last Admin: 06/06/18 10:14 Dose: 81 mg Carvedilol (Coreg) 3.125 mg PO BID [facility] Last Admin: 06/06/18 18:00 Dose: Not Given Enoxaparin Sodium (Lovenox) 30 mg SC DAILY [facility] Last Admin: 06/06/18 10:15 Dose: 30 mg Furosemide (Lasix) 40 mg IVP BID [facility] Last Admin: 06/06/18 18:00 Dose: Not Given Lactulose (Enulose) 20 gm PO DAILY [facility] Last Admin: 06/06/18 10:14 Dose: 20 gm Pantoprazole Sodium (Protonix Ec Tab) 40 mg PO DAILY [facility] Last Admin: 06/06/18 10:15 Dose: 40 mg Promethazine HCl/Dextromethorphan (Phenergan Dm Syrup) 10 ml PO TID PRN PRN Reason: Cough Rosuvastatin Calcium (Crestor) 5 mg PO HS [facility] Last Admin: 06/05/18 22:36 Dose: 5 mg Sacubitril/Valsartan (Entresto 24 Mg-26 Mg) 1 tab PO 0800,1999 [facility] Last Admin: 06/06/18 10:14 Dose: 1 tab Spironolactone (Aldactone) 50 mg PO BID [facility] Last Admin: 06/06/18 18:00 Dose: Not Given - Labs Labs: 06/06/18 07:20 06/06/18 07:20 PT 15.3 SECONDS (9.7-12.2) H 06/05/18 11:37 INR 1.4 06/05/18 11:37 APTT 34 SECONDS (21-34) 06/03/18 12:32 - Head Exam Head Exam: ATRAUMATIC, NORMAL INSPECTION, NORMOCEPHALIC - Eye Exam Eye Exam: EOMI, Normal appearance, PERRL Pupil Exam: NORMAL ACCOMODATION, PERRL - ENT Exam ENT Exam: Mucous Membranes Moist, Normal Exam - Neck Exam Neck Exam: Full ROM, Normal Inspection. absent: Lymphadenopathy - Respiratory Exam Respiratory Exam: Decreased Breath Sounds - Cardiovascular Exam Cardiovascular Exam: REGULAR RHYTHM, +S1, +S2 - GI/Abdominal Exam GI & Abdominal Exam: Soft, Diminished Bowel Sounds - Rectal Exam Rectal Exam: Deferred
[2018-06-07] MEDS: Albuterol-Ipratrop 3 mg / 0.5 (3 ml) UD INH SCH ×3 (02:32→14:21)
[2018-06-07] MEDS: Sacubitril/Valsartan 24-26mg Tab PO SCH (08:00)
[2018-06-07 08:45] VITALS: BP 98/57; PULSE 100; TEMP 98.1; O2SAT 99
[2018-06-07] MEDS: Pantoprazole 40 mg EC Tab PO SCH ×2 (09:12→09:17)
[2018-06-07] MEDS: Enoxaparin 30 mg Syringe SC SCH (09:17)
--- NOTE | 2018-06-07 09:58 | CT ---
Date of service: 06/06/2018 PROCEDURE: CT Abdomen and Pelvis with contrast HISTORY: Abdominal Distention Cirrhosis COMPARISON: CT angio abdomen iliofemoral runoff 01/29/2018 TECHNIQUE: Contrast dose: 100 mL Visipaque 320 Radiation dose: Total exam DLP = 3991.64 mGy-cm. This CT exam was performed using one or more of the following dose reduction techniques: Automated exposure control, adjustment of the mA and/or kV according to patient size, and/or use of iterative reconstruction technique. FINDINGS: Examination technically suboptimal. Timing of scans at 30 sec, 95 sec and 5 min, versus 40 sec, 80 sec and 4 min. LOWER THORAX: Small right pleural effusion. Right lower lobe subsegmental atelectasis. Cardiomegaly. Permanent pacemaker. LIVER: Mildly nodular contour. Possible hepatic cirrhosis. Heterogeneous attenuation. No discrete mass. No enhancing mass. No biliary dilatation. GALLBLADDER AND BILE DUCTS: Gallbladder contracted. There is a calcified stones seen within the gallbladder lumen. No mural thickening. PANCREAS: Unremarkable. No gross lesion or ductal dilatation. SPLEEN: Unremarkable. ADRENALS: Unremarkable. No mass. KIDNEYS AND URETERS: Unremarkable. No hydronephrosis. No solid mass. VASCULATURE: Unremarkable. No aortic aneurysm. No aortic atherosclerotic calcification or mural plaque present. BOWEL: Unremarkable. No obstruction. No gross mural thickening. APPENDIX: Not identified. PERITONEUM: Mild ascites. No pneumoperitoneum. LYMPH NODES: Unremarkable. No enlarged lymph nodes. BLADDER: Nondistended REPRODUCTIVE: Unremarkable prostate BONES: No acute fracture. OTHER FINDINGS: None. IMPRESSION: Technically limited evaluation. Small right pleural effusion. Right lower lobe subsegmental atelectasis. Cardiomegaly. Permanent pacemaker. Probable hepatic cirrhosis. No evidence of appendiceal malignancy. Mild ascites. Cholelithiasis without evidence of cholecystitis. No additional abnormality. The preliminary findings for this examination were reported by [facility] at 8:27 p.m. on 06/06/2018. There is concurrence of this report with the preliminary findings.
--- NOTE | 2018-06-07 15:43 | CP.PCM.PN ---
Subjective - Date & Time of Evaluation Date of Evaluation: 06/07/18 Objective - Vital Signs/Intake and Output Vital Signs (last 24 hours): Temp Pulse Resp BP Pulse Ox 98.1 F 100 H 20 98/57 L 99 06/07/18 07:00 06/07/18 07:00 06/07/18 07:00 06/07/18 07:00 06/07/18 07:00 - Medications Medications: Current Medications Albuterol/Ipratropium (Duoneb 3 Mg/0.5 Mg (3 Ml) Ud) 3 ml INH RQ6 [facility] Last Admin: 06/07/18 14:21 Dose: Not Given Aspirin (Aspirin Chewable) 81 mg PO DAILY [facility] Last Admin: 06/07/18 09:11 Dose: 81 mg Carvedilol (Coreg) 3.125 mg PO BID [facility] Last Admin: 06/06/18 18:00 Dose: Not Given Enoxaparin Sodium (Lovenox) 30 mg SC DAILY [facility] Last Admin: 06/07/18 09:17 Dose: 30 mg Furosemide (Lasix) 40 mg IVP BID [facility] Last Admin: 06/07/18 09:20 Dose: Not Given Lactulose (Enulose) 20 gm PO DAILY [facility] Last Admin: 06/06/18 10:14 Dose: 20 gm Pantoprazole Sodium (Protonix Ec Tab) 40 mg PO DAILY [facility] Last Admin: 06/07/18 09:17 Dose: 40 mg Promethazine HCl/Dextromethorphan (Phenergan Dm Syrup) 10 ml PO TID PRN PRN Reason: Cough Rosuvastatin Calcium (Crestor) 5 mg PO HS [facility] Last Admin: 06/06/18 22:37 Dose: 5 mg Sacubitril/Valsartan (Entresto 24 Mg-26 Mg) 1 tab PO 0800,1999 [facility] Last Admin: 06/07/18 08:00 Dose: 1 tab Spironolactone (Aldactone) 50 mg PO BID [facility] Last Admin: 06/06/18 18:00 Dose: Not Given - Labs Labs: 06/06/18 07:20 06/06/18 07:20 PT 15.3 SECONDS (9.7-12.2) H 06/05/18 11:37 INR 1.4 06/05/18 11:37 APTT 34 SECONDS (21-34) 06/03/18 12:32 - Constitutional Appears: Well - Head Exam Head Exam: ATRAUMATIC, NORMAL INSPECTION, NORMOCEPHALIC - Eye Exam Eye Exam: EOMI, Normal appearance, PERRL Pupil Exam: NORMAL ACCOMODATION, PERRL - ENT Exam ENT Exam: Mucous Membranes Moist, Normal Exam - Neck Exam Neck Exam: Full ROM, Normal Inspection. absent: Lymphadenopathy - Respiratory Exam Respiratory Exam: Decreased Breath Sounds - Cardiovascular Exam Cardiovascular Exam: REGULAR RHYTHM, +S1, +S2 - GI/Abdominal Exam GI & Abdominal Exam: Soft, Diminished Bowel Sounds - Rectal Exam Rectal Exam: Deferred
--- NOTE | 2018-06-07 17:20 | CP.PCM.PN ---
Subjective - Date & Time of Evaluation Date of Evaluation: 06/07/18 Time of Evaluation: 16:40 - Subjective Subjective: Patient seen and examined Sitting comfortably in no distress Status post thoracentesis Wants to go home Stable from pulmonary standpoint Objective - Vital Signs/Intake and Output Vital Signs (last 24 hours): Temp Pulse Resp BP Pulse Ox 98.1 F 100 H 20 98/57 L 99 06/07/18 07:00 06/07/18 07:00 06/07/18 07:00 06/07/18 07:00 06/07/18 07:00 - Medications Medications: Current Medications Albuterol/Ipratropium (Duoneb 3 Mg/0.5 Mg (3 Ml) Ud) 3 ml INH RQ6 [facility] Last Admin: 06/07/18 14:21 Dose: Not Given Aspirin (Aspirin Chewable) 81 mg PO DAILY [facility] Last Admin: 06/07/18 09:11 Dose: 81 mg Carvedilol (Coreg) 3.125 mg PO BID [facility] Last Admin: 06/06/18 18:00 Dose: Not Given Enoxaparin Sodium (Lovenox) 30 mg SC DAILY [facility] Last Admin: 06/07/18 09:17 Dose: 30 mg Furosemide (Lasix) 40 mg IVP BID [facility] Last Admin: 06/07/18 09:20 Dose: Not Given Lactulose (Enulose) 20 gm PO DAILY [facility] Last Admin: 06/06/18 10:14 Dose: 20 gm Pantoprazole Sodium (Protonix Ec Tab) 40 mg PO DAILY [facility] Last Admin: 06/07/18 09:17 Dose: 40 mg Promethazine HCl/Dextromethorphan (Phenergan Dm Syrup) 10 ml PO TID PRN PRN Reason: Cough Rosuvastatin Calcium (Crestor) 5 mg PO HS [facility] Last Admin: 06/06/18 22:37 Dose: 5 mg Sacubitril/Valsartan (Entresto 24 Mg-26 Mg) 1 tab PO 0800,1999 [facility] Last Admin: 06/07/18 08:00 Dose: 1 tab Spironolactone (Aldactone) 50 mg PO BID [facility] Last Admin: 06/06/18 18:00 Dose: Not Given - Labs Labs: 06/06/18 07:20 06/06/18 07:20 PT 15.3 SECONDS (9.7-12.2) H 06/05/18 11:37 INR 1.4 06/05/18 11:37 APTT 34 SECONDS (21-34) 06/03/18 12:32 Assessment and Plan (1) Pleural effusion Status: Acute
--- NOTE | 2018-06-07 17:58 | CP.PCM.PN ---
<Ranjan Mahajan - Last Filed: 06/07/18 18:00> Subjective - Date & Time of Evaluation Date of Evaluation: 06/07/18 Time of Evaluation: 11:30 - Subjective Subjective: PGY5 GI Follow-up Pt seen and examined bedside Denies any abd pain tolerating meals only 1 BM daily denies any fever, chills or diaphoresis ROS: 12 point ROS conducted, neg other than above Objective - Vital Signs/Intake and Output Vital Signs (last 24 hours): Temp Pulse Resp BP Pulse Ox 98.1 F 100 H 20 98/57 L 99 06/07/18 07:00 06/07/18 07:00 06/07/18 07:00 06/07/18 07:00 06/07/18 07:00 - Medications Medications: Current Medications Albuterol/Ipratropium (Duoneb 3 Mg/0.5 Mg (3 Ml) Ud) 3 ml INH RQ6 [facility] Last Admin: 06/07/18 14:21 Dose: Not Given Aspirin (Aspirin Chewable) 81 mg PO DAILY [facility] Last Admin: 06/07/18 09:11 Dose: 81 mg Carvedilol (Coreg) 3.125 mg PO BID [facility] Last Admin: 06/07/18 17:46 Dose: 3.125 mg Enoxaparin Sodium (Lovenox) 30 mg SC DAILY [facility] Last Admin: 06/07/18 09:17 Dose: 30 mg Furosemide (Lasix) 40 mg IVP BID [facility] Last Admin: 06/07/18 09:20 Dose: Not Given Lactulose (Enulose) 20 gm PO DAILY [facility] Last Admin: 06/06/18 10:14 Dose: 20 gm Pantoprazole Sodium (Protonix Ec Tab) 40 mg PO DAILY [facility] Last Admin: 06/07/18 09:17 Dose: 40 mg Promethazine HCl/Dextromethorphan (Phenergan Dm Syrup) 10 ml PO TID PRN PRN Reason: Cough Rosuvastatin Calcium (Crestor) 5 mg PO HS [facility] Last Admin: 06/06/18 22:37 Dose: 5 mg Sacubitril/Valsartan (Entresto 24 Mg-26 Mg) 1 tab PO 0800,1999 [facility] Last Admin: 06/07/18 08:00 Dose: 1 tab Spironolactone (Aldactone) 50 mg PO BID [facility] Last Admin: 06/07/18 17:46 Dose: 50 mg - Labs Labs: 06/06/18 07:20 06/06/18 07:20 PT 15.3 SECONDS (9.7-12.2) H 06/05/18 11:37 INR 1.4 06/05/18 11:37 APTT 34 SECONDS (21-34) 06/03/18 12:32 - Constitutional Appears: Non-toxic, No Acute Distress, Chronically Ill - Head Exam Head Exam: ATRAUMATIC, NORMOCEPHALIC - Eye Exam Eye Exam: Normal appearance - ENT Exam ENT Exam: Mucous Membranes Moist - Neck Exam Neck Exam: Normal Inspection - Respiratory Exam Respiratory Exam: Clear to Ausculation Bilateral, NORMAL BREATHING PATTERN. absent: Rales, Rhonchi, Wheezes, Respiratory Distress - Cardiovascular Exam Cardiovascular Exam: REGULAR RHYTHM, +S1, +S2 - GI/Abdominal Exam GI & Abdominal Exam: Distended. 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 Active treatment of decompensated cirrhosis secondary to new onset Grade 1 hepatic encephalopathy/ascites and recurrent pleural effusions. Prior EGD/colonoscopy 10/2016 showed H. pylori negative gastritis, duodenitis without biopsy, no esophageal varices, adequate bowel prep, and Grade III internal hemorrhoids. Plan: -MELD-Na 13 - Lactulose 20mg BID, titrate to 2-3 bowel movements daily -IR documentation- small ascites on ultrasound- no paracentesis -continue Lasix 40mg BID and spironolactone 50mg BID, follow diuresis response and titrate; continue to optimize as an oupt -f/u with GI or automotive specialty technician -CT A/P PO/IV contrast with liver protocol: no lesions reported -Duplex U/S - bidirectional flow of portal vein -low sodium diet -AFP 2.0 -pulmonology managing -POD2 (06/05) 1.5Liter thoracentesis D/W Dr. Arnold <ClaytonShad urena - Last Filed: 06/08/18 16:55> Objective - Vital Signs/Intake and Output Vital Signs (last 24 hours): Temp Pulse Resp BP Pulse Ox 98.1 F 100 H 20 98/57 L 99 06/07/18 07:00 06/07/18 07:00 06/07/18 07:00 06/07/18 07:00 06/07/18 07:00 - Labs Labs: 06/06/18 07:20 06/06/18 07:20 PT 15.3 SECONDS (9.7-12.2) H 06/05/18 11:37 INR 1.4 06/05/18 11:37 APTT 34 SECONDS (21-34) 06/03/18 12:32 Attending/Attestation - Attestation I have personally seen and examined this patient.: Yes I have fully participated in the care of the patient.: Yes I have reviewed all pertinent clinical information, including history, physical exam and plan: Yes Notes (Text): 06/08/18 16:55 Late entry The pt was seen and examined on Saturday. Chart was reviewed. Findings assessment and recommendations were discussed with Dr. Mahajan and documented above.
--- NOTE | 2018-06-07 18:33 | CP.PCM.PN ---
Objective - Vital Signs/Intake and Output Vital Signs (last 24 hours): Temp Pulse Resp BP Pulse Ox 98.1 F 100 H 20 98/57 L 99 06/07/18 07:00 06/07/18 07:00 06/07/18 07:00 06/07/18 07:00 06/07/18 07:00 - Medications Medications: Current Medications Albuterol/Ipratropium (Duoneb 3 Mg/0.5 Mg (3 Ml) Ud) 3 ml INH RQ6 [facility] Last Admin: 06/07/18 14:21 Dose: Not Given Aspirin (Aspirin Chewable) 81 mg PO DAILY [facility] Last Admin: 06/07/18 09:11 Dose: 81 mg Carvedilol (Coreg) 3.125 mg PO BID [facility] Last Admin: 06/07/18 17:46 Dose: 3.125 mg Enoxaparin Sodium (Lovenox) 30 mg SC DAILY [facility] Last Admin: 06/07/18 09:17 Dose: 30 mg Furosemide (Lasix) 40 mg IVP BID [facility] Last Admin: 06/07/18 18:05 Dose: Not Given Lactulose (Enulose) 20 gm PO DAILY [facility] Last Admin: 06/06/18 10:14 Dose: 20 gm Pantoprazole Sodium (Protonix Ec Tab) 40 mg PO DAILY [facility] Last Admin: 06/07/18 09:17 Dose: 40 mg Promethazine HCl/Dextromethorphan (Phenergan Dm Syrup) 10 ml PO TID PRN PRN Reason: Cough Rosuvastatin Calcium (Crestor) 5 mg PO HS [facility] Last Admin: 06/06/18 22:37 Dose: 5 mg Sacubitril/Valsartan (Entresto 24 Mg-26 Mg) 1 tab PO 0800,1999 [facility] Last Admin: 06/07/18 08:00 Dose: 1 tab Spironolactone (Aldactone) 50 mg PO BID [facility] Last Admin: 06/07/18 17:46 Dose: 50 mg - Labs Labs: 06/06/18 07:20 06/06/18 07:20 PT 15.3 SECONDS (9.7-12.2) H 06/05/18 11:37 INR 1.4 06/05/18 11:37 APTT 34 SECONDS (21-34) 06/03/18 12:32 Assessment and Plan - Assessment and Plan (Free Text) Assessment: 68 Year old male admitted from [facility] with sob, pleural effusion, seen and examined.
--- NOTE | 2018-06-07 18:34 | PCM.HF ---
Heart Failure Core Measure Beta-Erlinda Prescribed: Carvedilol Angiotensin II Receptor Erlinda Prescribed: Yes
[2018-06-08 04:54] LABS: AMYLASE PLEURAL FLUID 37 U/L
[2018-06-08 06:12] LABS: CEA PLEURAL FLUID <0.5 ng/mL (<10.0)
[2018-06-08 07:36] LABS: GLUCOSE PLEURAL FLUID 128 mg/dL; LDH PLEURAL FLUID 118 U/L
== END 2018-06-07 17:55 | disposition home or self-care (01) | DRG 293 ==
LOC: C.ER 11:14 → C.9E 15:23 → C.6T 16:31 → OBSVTOIN 06-06 14:22
PROVIDERS: ADMIT Internal Medicine Nephrology; ATTEND Internal Medicine Nephrology
DX: I50.9 Heart failure, unspecified (principal); I11.0 Hypertensive heart disease with heart failure; J44.9 Chronic obstructive pulmonary disease, unspecified; I27.20 Pulmonary hypertension, unspecified; I48.91 Unspecified atrial fibrillation; E11.9 Type 2 diabetes mellitus without complications; E78.00 Pure hypercholesterolemia, unspecified; E78.5 Hyperlipidemia, unspecified; K70.31 Alcoholic cirrhosis of liver with ascites; K29.80 Duodenitis without bleeding; K29.70 Gastritis, unspecified, without bleeding; Z95.810 Presence of automatic (implantable) cardiac defibrillator; Z95.0 Presence of cardiac pacemaker; Z90.49 Acquired absence of other specified parts of digestive tract; Z91.19 Patient's noncompliance with other medical treatment and regimen

== ENCOUNTER 2018-06-11 15:43 | Observation (INO) | payer MEDICARE, BC ==
[2018-06-11 15:58] VITALS: BMI 31.8
[2018-06-11 16:22] LABS: BASO # 0.1 K/uL (0.0-0.2); BASO % 1.2 % (0.0-2.0); EOS # 0.2 K/uL (0.0-0.7); EOS % 2.7 % (0.0-4.0); HEMOGLOBIN 7.1 g/dL (12.0-18.0); LYMPH % 15.6 % (20.0-40.0); MEAN CELL VOLUME 79.2 fL (80.0-94.0); MEAN CORPUSCULAR HEMOGLOBIN 23.7 pg (27.0-31.0); MEAN PLATELET VOLUME 7.8 fL (7.2-11.7); MONO # 1.2 K/uL (0.0-0.8); NEUT # 3.8 K/uL (1.8-7.0); NEUT % 60.5 % (50.0-75.0); NRBC % 0.3 % (0.0-2.0); RBC 2.99 Mil/uL (4.40-5.90); RED CELL DISTRIBUTION WIDTH 20.6 % (11.5-14.5); WHITE BLOOD COUNT 6.2 K/uL (4.8-10.8)
[2018-06-11 16:28] LABS: INR 1.4; PROTHROMBIN TIME 15.8 SECONDS (9.7-12.2)
--- NOTE | 2018-06-11 16:40 | C.PDOC ---
History Of Present Illness 68 year old male presents to the ED sent by [facility] for abnormal labs. As per AL, hemoglobin was 6.6. Patient was recently discharged from this institution. Otherwise, denies any physical complaints. Patient has chronic abdominal distention, chronic leg wounds, and shortness of breath but he reports these symptoms are normal. Time Seen by Provider: 06/11/18 15:46 Chief Complaint (Nursing): Abnormal Labs History Per: Patient, Other ([facility]) History/Exam Limitations: no limitations Onset/Duration Of Symptoms: Hrs Current Symptoms Are (Timing): Still Present Severity: Mild Reports Recently: Hospitalized Additional History Per: [facility], Prior Records Past Medical History Reviewed: Historical Data, Nursing Documentation, Vital Signs Vital Signs: Last Vital Signs Temp 97.6 F 06/11/18 15:48 Pulse 83 06/11/18 15:48 Resp 20 06/11/18 15:48 BP 111/61 06/11/18 15:48 Pulse Ox 91 L 06/11/18 15:48 - Medical History PMH: Arthritis, Atrial Fibrillation, CHF, COPD, Diabetes, HTN, Hypercholesterolemia, Pancreatitis (eval for possible pancreatitis) Surgical History: Appendectomy, Pacemaker - [facility] Procedures ASSISTANCE WITH RESPIRATORY VENTILATION, 24-96 HRS, CPAP (01/21/17) DRAINAGE OF LEFT PLEURAL CAVITY, PERCUTANEOUS APPROACH (02/02/17) DRAINAGE OF PERITONEAL CAVITY, PERCUTANEOUS APPROACH (03/05/17) DRAINAGE OF PERITONEAL CAVITY, PERCUTANEOUS APPROACH, DIAGN (05/22/18) DRAINAGE OF RIGHT PLEURAL CAVITY, PERCUTANEOUS APPROACH (03/05/17) EXCISION OF STOMACH, ENDO, DIAGN (11/03/16) EXTRACTION OF RIGHT FOOT SKIN, EXTERNAL APPROACH (08/29/17) FLUOROSCOPY OF SUP VENA CAVA USING L OSM CONTRAST, GUIDANCE (03/05/17) INSERTION OF INFUSION DEV INTO SUP VENA CAVA, PERC APPROACH (03/05/17) INSPECTION OF LOWER INTESTINAL TRACT, ENDO (11/03/16) TRANSFUSE NONAUT RED BLOOD CELLS IN PERIPH VEIN, PERC (01/21/17) ULTRASONOGRAPHY OF SUPERIOR VENA CAVA, GUIDANCE (03/05/17) Family History: States: No Known Family Hx - Social History Hx Tobacco Use: No Hx Alcohol Use: No Hx Substance Use: No - Immunization History Hx Tetanus Toxoid Vaccination: No Hx Influenza Vaccination: Yes Hx Pneumococcal Vaccination: Yes Review Of Systems Except As Marked, All Systems Reviewed And Found Negative. Constitutional: Positive for: Other (low hemoglobin ). Negative for: Fever, Chills Cardiovascular: Negative for: Chest Pain Respiratory: Positive for: Shortness of Breath (chronic) Gastrointestinal: Positive for: Abdominal Pain. Negative for: Melena Musculoskeletal: Negative for: Back Pain Skin: Positive for: Other (leg ulcers) Neurological: Negative for: Headache, Dizziness Physical Exam - Physical Exam Appears: Non-toxic, No Acute Distress Skin: Warm, Dry Head: Normacephalic Eye(s): bilateral: PERRL, EOMI Nose: Normal Oral Mucosa: Moist Neck: Supple Chest: Symmetrical Cardiovascular: Rhythm Regular Respiratory: Normal Breath Sounds, No Rales, No Rhonchi, No Wheezing Gastrointestinal/Abdominal: Soft, No Tenderness, Distention (chronic distended abdomen ) Extremity: No Calf Tenderness, Swelling (B/L chronic leg swelling with erythema and wounds) Neurological/Psych: Oriented x3, Normal Speech Gait: Steady ED Course And Treatment - Laboratory Results Result Diagrams: 06/11/18 16:17 06/11/18 16:17 Lab Results: PT 15.8 SECONDS (9.7-12.2) H 06/11/18 16:17 INR 1.4 06/11/18 16:17 Lab Interpretation: Abnormal O2 Sat by Pulse Oximetry: 91 (RA) Pulse Ox Interpretation: Abnormal - Radiology CXR: Interpreted by Me CXR Interpretation: Yes: No Acute Disease Progress Note: Blood consent obtained. 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 - Scribe Statement The provider has reviewed the documentation as recorded by the Scribe Joslyn Dutta All medical record entries made by the Scribe were at my direction and personally dictated by me. I have reviewed the chart and agree that the record accurately reflects my personal performance of the history, physical exam, medical decision making, and the department course for this patient. I have also personally directed, reviewed, and agree with the discharge instructions and disposition.
[2018-06-11 16:42] LABS: ALB/GLOB RATIO 0.9 (1.0-2.1); ALBUMIN 3.6 g/dL (3.5-5.0)
[2018-06-11 16:48] LABS: URINE BACTERIA RARE (<OCC); URINE BILIRUBIN NEGATIVE (NEGATIVE); URINE BLOOD NEGATIVE (NEGATIVE); URINE CLARITY Clear (Clear); URINE COLOR Yellow (YELLOW); URINE GLUCOSE (UA) NORMAL (Normal); URINE LEUKOCYTE ESTERASE NEG Leu/uL (Negative); URINE PROTEIN NEGATIVE (NEGATIVE)
--- NOTE | 2018-06-11 19:31 | CP.PCM.HP ---
Past Patient History - Infectious Disease Hx of Infectious Diseases: None - Past Medical History & Family History Past Medical History?: Yes - Past Social History Smoking Status: Never Smoked - CARDIAC Hx Atrial Fibrillation: Yes Hx Congestive Heart Failure: Yes Hx Hypercholesterolemia: Yes Hx Hypertension: Yes Hx Pacemaker: Yes - PULMONARY Hx Chronic Obstructive Pulmonary Disease (COPD): Yes - NEUROLOGICAL Hx Neurological Disorder: No - HEENT Hx HEENT Problems: No - RENAL Hx Chronic Kidney Disease: No - ENDOCRINE/METABOLIC Hx Endocrine Disorders: Yes Hx Diabetes Mellitus Type 2: Yes - HEMATOLOGICAL/ONCOLOGICAL Hx Blood Disorders: No - INTEGUMENTARY Hx Dermatological Problems: Yes (lower leg ulcers) Other/Comment: MRSA of leg - MUSCULOSKELETAL/RHEUMATOLOGICAL Hx Arthritis: Yes - GASTROINTESTINAL Hx Pancreatitis: Yes (eval for possible pancreatitis) - GENITOURINARY/GYNECOLOGICAL Hx Genitourinary Disorders: No - PSYCHIATRIC Hx Substance Use: No - SURGICAL HISTORY Hx Appendectomy: Yes - ANESTHESIA Hx Anesthesia: Yes Hx Anesthesia Reactions: No Hx Malignant Hyperthermia: No Meds Allergies/Adverse Reactions: Allergies Allergy/AdvReac Type Severity Reaction Status Date / Time No Known Allergies Allergy Verified 06/11/18 15:47 Physical Exam - Constitutional Appears: Well - Head Exam Head Exam: ATRAUMATIC, NORMAL INSPECTION, NORMOCEPHALIC - Eye Exam Eye Exam: EOMI, Normal appearance, PERRL Pupil Exam: NORMAL ACCOMODATION, PERRL - ENT Exam ENT Exam: Mucous Membranes Moist, Normal Exam - Neck Exam Neck exam: Positive for: Normal Inspection - Respiratory Exam Respiratory Exam: Decreased Breath Sounds - Cardiovascular Exam Cardiovascular Exam: REGULAR RHYTHM, +S1, +S2 - GI/Abdominal Exam GI & Abdominal Exam: Diminished Bowel Sounds, Soft - Rectal Exam Rectal Exam: Deferred Results - Vital Signs Recent Vital Signs: Last Vital Signs Temp 97.5 F L 06/11/18 17:32 Pulse 84 06/11/18 17:32 Resp 16 06/11/18 17:32 BP 111/65 06/11/18 17:32 Pulse Ox 91 L 06/11/18 18:18 - Labs Result Diagrams: 06/11/18 16:17 06/11/18 16:17 Labs: Laboratory Results - last 24 hr 06/11/18 06/11/18 06/11/18 16:17 16:17 16:17 WBC 6.2 RBC 2.99 L Hgb 7.1 L Hct 23.7 L MCV 79.2 L MCH 23.7 L MCHC 30.0 L RDW 20.6 H Plt Count 167 MPV 7.8 Neut % (Auto) 60.5 Lymph % (Auto) 15.6 L Swain % (Auto) 20.0 H Eos % (Auto) 2.7 Baso % (Auto) 1.2 Neut # (Auto) 3.8 Lymph # (Auto) 1.0 Swain # (Auto) 1.2 H Eos # (Auto) 0.2 Baso # (Auto) 0.1 PT INR Sodium 138 Potassium 5.0 Chloride 98 Carbon Dioxide 33 H Anion Gap 12 BUN 24 H Creatinine 1.6 H Est GFR ( Amer) 53 Est GFR (Non-Af Amer) 43 Random Glucose 90 Calcium 8.0 L Total Bilirubin 0.7 AST 37 ALT 9 L Alkaline Phosphatase 96 Total Protein 7.5 Albumin 3.6 Globulin 3.9 Albumin/Globulin Ratio 0.9 L Urine Color Yellow Urine Clarity Clear Urine pH 6.0 Ur Specific [place] 1.006 Urine Protein Negative Urine Glucose (UA) Normal Urine Ketones Negative Urine Blood Negative Urine Nitrate Negative Urine Bilirubin Negative Urine Urobilinogen 4.0 Ur Leukocyte Esterase Neg Urine WBC (Auto) < 1 Urine RBC (Auto) < 1 Urine Bacteria Rare Blood Type Antibody Screen 06/11/18 06/11/18 16:17 16:17 WBC RBC Hgb Hct MCV MCH MCHC RDW Plt Count MPV Neut % (Auto) Lymph % (Auto) Swain % (Auto) Eos % (Auto) Baso % (Auto) Neut # (Auto) Lymph # (Auto) Swain # (Auto) Eos # (Auto) Baso # (Auto) PT 15.8 H INR 1.4 Sodium Potassium Chloride Carbon Dioxide Anion Gap BUN Creatinine Est GFR ( Amer) Est GFR (Non-Af Amer) Random Glucose Calcium Total Bilirubin AST ALT Alkaline Phosphatase Total Protein Albumin Globulin Albumin/Globulin Ratio Urine Color Urine Clarity Urine pH Ur Specific [place] Urine Protein Urine Glucose (UA) Urine Ketones Urine Blood Urine Nitrate Urine Bilirubin Urine Urobilinogen Ur Leukocyte Esterase Urine WBC (Auto) Urine RBC (Auto) Urine Bacteria Blood Type A POSITIVE Antibody Screen Negative
[2018-06-11] MEDS ORDERED: Promethazine DM 12.5 mg-30 mg/10 ml Syrup PO PRN (19:45)
--- NOTE | 2018-06-11 22:28 | CP.PCM.CON ---
History of Present Illness - History of Present Illness History of Present Illness: 68 year old male with a history of COPD, CHF s/p ICD, HTN, DM, decompensated liver cirrhosis (former alcohol), chronic LE wounds, pleural effusion, presenting from the [facility] with severe anemia. The patient was found to have a hgb of 6.6 at [facility] and sent to the hospital. In the ER he was noted to haev a hgb of 7.1 and he is currently undergoing PRBC transfusion. He denies abnormal bleeding and bruising. His hgb a few days ago was 8.3. Past medical history: COPD, CHF, s/p ICD, HTN, DM, liver cirrhosis. Past surgical history: ICD placement Family history: Denies hematologic and oncologic problems Social history: Former alcohol abuse Allergies: NKA Review of systems: All remaining review of systems including HEENT, car diovascular, respiratory, gastrointestinal, genitourinary, musculoskeletal, dermatologic, neurologic, and psychiatric are negative unless mentioned in the HPI. Past Patient History - Infectious Disease Hx of Infectious Diseases: None - Past Medical History & Family History Past Medical History?: Yes - Past Social History Smoking Status: Never Smoked - CARDIAC Hx Atrial Fibrillation: Yes Hx Congestive Heart Failure: Yes Hx Hypercholesterolemia: Yes Hx Hypertension: Yes Hx Pacemaker: Yes - PULMONARY Hx Chronic Obstructive Pulmonary Disease (COPD): Yes - NEUROLOGICAL Hx Neurological Disorder: No - HEENT Hx HEENT Problems: No - RENAL Hx Chronic Kidney Disease: No - ENDOCRINE/METABOLIC Hx Endocrine Disorders: Yes Hx Diabetes Mellitus Type 2: Yes - HEMATOLOGICAL/ONCOLOGICAL Hx Blood Disorders: No - INTEGUMENTARY Hx Dermatological Problems: Yes (lower leg ulcers) Other/Comment: MRSA of leg - MUSCULOSKELETAL/RHEUMATOLOGICAL Hx Arthritis: Yes - GASTROINTESTINAL Hx Pancreatitis: Yes (eval for possible pancreatitis) - GENITOURINARY/GYNECOLOGICAL Hx Genitourinary Disorders: No - PSYCHIATRIC Hx Substance Use: No - SURGICAL HISTORY Hx Appendectomy: Yes - ANESTHESIA Hx Anesthesia: Yes Hx Anesthesia Reactions: No Hx Malignant Hyperthermia: No Meds Allergies/Adverse Reactions: Allergies Allergy/AdvReac Type Severity Reaction Status Date / Time No Known Allergies Allergy Verified 06/11/18 15:47 - Medications Medications: Current Medications Acetaminophen (Tylenol 325mg Tab) 650 mg PO Q6 PRN PRN Reason: Pain, Mild (1-3) Aspirin (Aspirin Chewable) 81 mg PO DAILY [facility] Carvedilol (Coreg) 3.125 mg PO BID [facility] Docusate Sodium (Colace) 100 mg PO DAILY [facility] Enoxaparin Sodium (Lovenox) 40 mg SC DAILY [facility] Ferric Sodium Gluconate Complex (Ferrlecit) 125 mg IVPB DAILY [facility] Stop: 06/17/18 10:01 Furosemide (Lasix) 40 mg PO BID [facility] Influenza Virus Vaccine (Flucelvax Quad [id number] Syr) 60 mcg IM .ONCE ONE Stop: 06/13/18 10:01 Pantoprazole Sodium (Protonix Ec Tab) 40 mg PO DAILY [facility] Promethazine HCl/Dextromethorphan (Phenergan Dm Syrup) 10 ml PO TID PRN PRN Reason: Cough Rosuvastatin Calcium (Crestor) 5 mg PO HS [facility] Last Admin: 06/11/18 21:12 Dose: Not Given Sacubitril/Valsartan (Entresto 24 Mg-26 Mg) 1 tab PO BID [facility] Physical Exam - Head Exam Head Exam: ATRAUMATIC - Eye Exam Eye Exam: Normal appearance - ENT Exam ENT Exam: Mucous Membranes Dry - Respiratory Exam Respiratory Exam: Decreased Breath Sounds - Cardiovascular Exam Cardiovascular Exam: +S1, +S2 - GI/Abdominal Exam GI & Abdominal Exam: Normal Bowel Sounds - Extremities Exam Extremities exam: Positive for: pedal edema - Psychiatric Exam Psychiatric exam: Flat Affect - Skin Skin Exam: Warm Results - Vital Signs Recent Vital Signs: Last Vital Signs Temp 97.7 F 06/11/18 21:39 Pulse 76 06/11/18 21:39 Resp 18 06/11/18 21:39 BP 103/66 06/11/18 21:39 Pulse Ox 94 L 06/11/18 19:46 - Labs Result Diagrams: 06/11/18 16:17 06/11/18 16:17 Labs: Laboratory Results - last 24 hr 06/11/18 06/11/18 06/11/18 16:17 16:17 16:17 WBC 6.2 RBC 2.99 L Hgb 7.1 L Hct 23.7 L MCV 79.2 L MCH 23.7 L MCHC 30.0 L RDW 20.6 H Plt Count 167 MPV 7.8 Neut % (Auto) 60.5 Lymph % (Auto) 15.6 L [place] % (Auto) 20.0 H Eos % (Auto) 2.7 Baso % (Auto) 1.2 Neut # (Auto) 3.8 Lymph # (Auto) 1.0 [place] # (Auto) 1.2 H Eos # (Auto) 0.2 Baso # (Auto) 0.1 PT INR Sodium 138 Potassium 5.0 Chloride 98 Carbon Dioxide 33 H Anion Gap 12 BUN 24 H Creatinine 1.6 H Est GFR ( Amer) 53 Est GFR (Non-Af Amer) 43 POC Glucose (mg/dL) Random Glucose 90 Calcium 8.0 L Total Bilirubin 0.7 AST 37 ALT 9 L Alkaline Phosphatase 96 Total Protein 7.5 Albumin 3.6 Globulin 3.9 Albumin/Globulin Ratio 0.9 L Urine Color Yellow Urine Clarity Clear Urine pH 6.0 Ur Specific [place] 1.006 Urine Protein Negative Urine Glucose (UA) Normal Urine Ketones Negative Urine Blood Negative Urine Nitrate Negative Urine Bilirubin Negative Urine Urobilinogen 4.0 Ur Leukocyte Esterase Neg Urine WBC (Auto) < 1 Urine RBC (Auto) < 1 Urine Bacteria Rare Blood Type Antibody Screen 06/11/18 06/11/18 06/11/18 16:17 16:17 21:07 WBC RBC Hgb Hct MCV MCH MCHC RDW Plt Count MPV Neut % (Auto) Lymph % (Auto) [place] % (Auto) Eos % (Auto) Baso % (Auto) Neut # (Auto) Lymph # (Auto) [place] # (Auto) Eos # (Auto) Baso # (Auto) PT 15.8 H INR 1.4 Sodium Potassium Chloride Carbon Dioxide Anion Gap BUN Creatinine Est GFR ( Amer) Est GFR (Non-Af Amer) POC Glucose (mg/dL) 155 H Random Glucose Calcium Total Bilirubin AST ALT Alkaline Phosphatase Total Protein Albumin Globulin Albumin/Globulin Ratio Urine Color Urine Clarity Urine pH Ur Specific [place] Urine Protein Urine Glucose (UA) Urine Ketones Urine Blood Urine Nitrate Urine Bilirubin Urine Urobilinogen Ur Leukocyte Esterase Urine WBC (Auto) Urine RBC (Auto) Urine Bacteria Blood Type A POSITIVE Antibody Screen Negative Assessment & Plan (1) Anemia Assessment and Plan: retic count, b12, folate, ferritin, FOBT to further characterize 1U PRBC today repeat CBC in AM Thank you for this interesting consult. Status: Acute
[2018-06-12 06:56] LABS: BASO % 0.5 % (0.0-2.0); EOS # 0.2 K/uL (0.0-0.7); EOS % 2.9 % (0.0-4.0); HEMOGLOBIN 7.2 g/dL (12.0-18.0); LYMPH # 0.8 K/uL (1.0-4.3); LYMPH % 14.2 % (20.0-40.0); MEAN CELL VOLUME 80.6 fL (80.0-94.0); MEAN CORPUSCULAR HEMOGLOBIN 24.7 pg (27.0-31.0); MEAN CORPUSCULAR HGB CONC 30.7 g/dL (33.0-37.0); MEAN PLATELET VOLUME 8.3 fL (7.2-11.7); MONO # 1.2 K/uL (0.0-0.8); MONO % 20.3 % (0.0-10.0); NEUT # 3.7 K/uL (1.8-7.0); NEUT % 62.1 % (50.0-75.0); NRBC % 0.4 % (0.0-2.0); PLATELET COUNT 168 K/uL (130-400); RBC 2.92 Mil/uL (4.40-5.90); RED CELL DISTRIBUTION WIDTH 19.8 % (11.5-14.5); WHITE BLOOD COUNT 5.9 K/uL (4.8-10.8)
[2018-06-12 07:29] LABS: B-TYPE NATRIURETIC PEPTIDE 3270 pg/mL (0-900)
[2018-06-12 07:31] LABS: ALB/GLOB RATIO 0.9 (1.0-2.1); ALBUMIN 3.5 g/dL (3.5-5.0); ALT/SGPT 7 U/L (21-72); AST/SGOT 38 U/L (17-59); BLOOD UREA NITROGEN 22 mg/dL (9-20); CALCIUM 7.8 mg/dl (8.6-10.4); GFR NON-AFRICAN AMERICAN 51
[2018-06-12 07:54] LABS: FERRITIN 15.8 ng/mL
[2018-06-12 08:25] LABS: FOLATE 11.8 ng/mL
[2018-06-12] MEDS: Sacubitril/Valsartan 24-26mg Tab PO SCH ×2 (09:39→17:30)
[2018-06-12] MEDS: Pantoprazole 40 mg EC Tab PO SCH (09:40)
[2018-06-12 09:52] LABS: ANISOCYTOSIS MODERATE; EOSINOPHIL 1 % (0-4); LYMPHOCYTE 17 % (20-40); MONOCYTE 25 % (0-10); NEUTROPHIL 57 % (50-75); PLATELET ESTIMATE NORMAL (NORMAL); TOTAL CELLS COUNTED 100
[2018-06-12 09:53] LABS: HYPOCHROMIC SLIGHT
[2018-06-12] MEDS ORDERED: Enoxaparin 40 mg Syringe SC SCH (10:00)
--- NOTE | 2018-06-12 10:00 | CP.PCM.CON ---
History of Present Illness - History of Present Illness History of Present Illness: Podiatry consult note - Dr. Montoya 68M seen and evaluated at bedside this AM for right leg wound. States that he was having his dressing changed at [facility] when the nurse opened a vein and he was bleeding for an hour straight. States he lost a lot of blood which is what brought him into the hospital. States he feels much better this morning and his dressing is no longer soaked. He did not let the nurses in the ED change his dressing overnight. Denies n/v/f/c/sob/cp today and has no other acute complaints. States once his blood test comes back with his hgb normal he will go back to the care home. PMHx: DM, HTN, CHF All: NKDA Past Patient History - Infectious Disease Hx of Infectious Diseases: None - Past Medical History & Family History Past Medical History?: Yes - Past Social History Smoking Status: Never Smoked - CARDIAC Hx Atrial Fibrillation: Yes Hx Congestive Heart Failure: Yes Hx Hypercholesterolemia: Yes Hx Hypertension: Yes Hx Pacemaker: Yes - PULMONARY Hx Chronic Obstructive Pulmonary Disease (COPD): Yes - NEUROLOGICAL Hx Neurological Disorder: No - HEENT Hx HEENT Problems: No - RENAL Hx Chronic Kidney Disease: No - ENDOCRINE/METABOLIC Hx Endocrine Disorders: Yes Hx Diabetes Mellitus Type 2: Yes - HEMATOLOGICAL/ONCOLOGICAL Hx Blood Disorders: No - INTEGUMENTARY Hx Dermatological Problems: Yes (lower leg ulcers) Other/Comment: MRSA of leg - MUSCULOSKELETAL/RHEUMATOLOGICAL Hx Arthritis: Yes - GASTROINTESTINAL Hx Pancreatitis: Yes (eval for possible pancreatitis) - GENITOURINARY/GYNECOLOGICAL Hx Genitourinary Disorders: No - PSYCHIATRIC Hx Substance Use: No - SURGICAL HISTORY Hx Appendectomy: Yes - ANESTHESIA Hx Anesthesia: Yes Hx Anesthesia Reactions: No Hx Malignant Hyperthermia: No Meds Allergies/Adverse Reactions: Allergies Allergy/AdvReac Type Severity Reaction Status Date / Time No Known Allergies Allergy Verified 06/11/18 15:47 - Medications Medications: Current Medications Acetaminophen (Tylenol 325mg Tab) 650 mg PO Q6 PRN PRN Reason: Pain, Mild (1-3) Aspirin (Aspirin Chewable) 81 mg PO DAILY [facility] Last Admin: 06/12/18 09:40 Dose: 81 mg Carvedilol (Coreg) 3.125 mg PO BID [facility] Last Admin: 06/12/18 09:40 Dose: 3.125 mg Docusate Sodium (Colace) 100 mg PO DAILY [facility] Last Admin: 06/12/18 09:39 Dose: 100 mg Ferric Sodium Gluconate Complex (Ferrlecit) 125 mg IVPB DAILY [facility] Stop: 06/17/18 10:01 Furosemide (Lasix) 40 mg PO BID [facility] Last Admin: 06/12/18 09:40 Dose: 40 mg Influenza Virus Vaccine (Flucelvax Quad [id number] Syr) 60 mcg IM .ONCE ONE Stop: 06/13/18 10:01 Pantoprazole Sodium (Protonix Ec Tab) 40 mg PO DAILY [facility] Last Admin: 06/12/18 09:40 Dose: 40 mg Promethazine HCl/Dextromethorphan (Phenergan Dm Syrup) 10 ml PO TID PRN PRN Reason: Cough Rosuvastatin Calcium (Crestor) 5 mg PO HS [facility] Last Admin: 06/11/18 21:12 Dose: Not Given Sacubitril/Valsartan (Entresto 24 Mg-26 Mg) 1 tab PO BID [facility] Last Admin: 06/12/18 09:39 Dose: 1 tab Physical Exam - Constitutional Appears: Non-toxic - Head Exam Head Exam: ATRAUMATIC - Extremities Exam Additional comments: LE focused exam Vasc: DP/PT pulses faintly palpable 1/4. Skin temperature warm to warm from proximal to distal WNL. CFT < 3 seconds to all digits. Mild edema noted diffusely Neuro: Epicritic and protective sensation grossly diminished Derm: 2 wounds, each 1 cm x 1 cm x 0.1 cm ulceration noted to medial aspect of left leg with mixed fibrogranular wound base. No active drainage noted. No malodor, purulence, tracking, tunneling or undermining appreciated. No other clinical signs of infection noted. Right leg reveals very small wound, not deep or wide, with no evidence of bleeding or drainage noted after dressing taken down MSK: No pain on palpation to ulceration site. No gross deformities noted - Neurological Exam Neurological exam: Alert, Oriented x3 - Psychiatric Exam Psychiatric exam: Normal Affect, Normal Mood Results - Vital Signs Recent Vital Signs: Last Vital Signs Temp 97.9 F 06/12/18 07:39 Pulse 87 06/12/18 07:39 Resp 20 06/12/18 07:39 BP 109/72 06/12/18 09:40 Pulse Ox 95 06/12/18 08:22 - Labs Result Diagrams: 06/12/18 06:41 06/12/18 06:41 Labs: Laboratory Results - last 24 hr 06/11/18 06/11/18 06/11/18 16:17 16:17 16:17 WBC 6.2 RBC 2.99 L Hgb 7.1 L Hct 23.7 L MCV 79.2 L MCH 23.7 L MCHC 30.0 L RDW 20.6 H Plt Count 167 MPV 7.8 Neut % (Auto) 60.5 Lymph % (Auto) 15.6 L [place] % (Auto) 20.0 H Eos % (Auto) 2.7 Baso % (Auto) 1.2 Neut # (Auto) 3.8 Lymph # (Auto) 1.0 [place] # (Auto) 1.2 H Eos # (Auto) 0.2 Baso # (Auto) 0.1 Neutrophils % (Manual) Lymphocytes % (Manual) Monocytes % (Manual) Eosinophils % (Manual) Platelet Estimate Hypochromasia (manual) Anisocytosis (manual) Retic Count PT INR Sodium 138 Potassium 5.0 Chloride 98 Carbon Dioxide 33 H Anion Gap 12 BUN 24 H Creatinine 1.6 H Est GFR ( Amer) 53 Est GFR (Non-Af Amer) 43 POC Glucose (mg/dL) Random Glucose 90 Calcium 8.0 L Ferritin Total Bilirubin 0.7 AST 37 ALT 9 L Alkaline Phosphatase 96 NT-Pro-B Natriuret Pep Total Protein 7.5 Albumin 3.6 Globulin 3.9 Albumin/Globulin Ratio 0.9 L Vitamin B12 Folate Urine Color Yellow Urine Clarity Clear Urine pH 6.0 Ur Specific [place] 1.006 Urine Protein Negative Urine Glucose (UA) Normal Urine Ketones Negative Urine Blood Negative Urine Nitrate Negative Urine Bilirubin Negative Urine Urobilinogen 4.0 Ur Leukocyte Esterase Neg Urine WBC (Auto) < 1 Urine RBC (Auto) < 1 Urine Bacteria Rare Blood Type Antibody Screen 06/11/18 06/11/18 06/11/18 16:17 16:17 21:07 WBC RBC Hgb Hct MCV MCH MCHC RDW Plt Count MPV Neut % (Auto) Lymph % (Auto) [place] % (Auto) Eos % (Auto) Baso % (Auto) Neut # (Auto) Lymph # (Auto) [place] # (Auto) Eos # (Auto) Baso # (Auto) Neutrophils % (Manual) Lymphocytes % (Manual) Monocytes % (Manual) Eosinophils % (Manual) Platelet Estimate Hypochromasia (manual) Anisocytosis (manual) Retic Count PT 15.8 H INR 1.4 Sodium Potassium Chloride Carbon Dioxide Anion Gap BUN Creatinine Est GFR ( Amer) Est GFR (Non-Af Amer) POC Glucose (mg/dL) 155 H Random Glucose Calcium Ferritin Total Bilirubin AST ALT Alkaline Phosphatase NT-Pro-B Natriuret Pep Total Protein Albumin Globulin Albumin/Globulin Ratio Vitamin B12 Folate Urine Color Urine Clarity Urine pH Ur Specific [place] Urine Protein Urine Glucose (UA) Urine Ketones Urine Blood Urine Nitrate Urine Bilirubin Urine Urobilinogen Ur Leukocyte Esterase Urine WBC (Auto) Urine RBC (Auto) Urine Bacteria Blood Type A POSITIVE Antibody Screen Negative 06/12/18 06/12/18 06/12/18 06:41 06:41 06:41 WBC 5.9 RBC 2.92 L Hgb 7.2 L Hct 23.5 L MCV 80.6 MCH 24.7 L MCHC 30.7 L RDW 19.8 H Plt Count 168 MPV 8.3 Neut % (Auto) 62.1 Lymph % (Auto) 14.2 L [place] % (Auto) 20.3 H Eos % (Auto) 2.9 Baso % (Auto) 0.5 Neut # (Auto) 3.7 Lymph # (Auto) 0.8 L [place] # (Auto) 1.2 H Eos # (Auto) 0.2 Baso # (Auto) 0.0 Neutrophils % (Manual) 57 Lymphocytes % (Manual) 17 L Monocytes % (Manual) 25 H Eosinophils % (Manual) 1 Platelet Estimate Normal Hypochromasia (manual) Slight Anisocytosis (manual) Moderate Retic Count 2.4 H D PT INR Sodium 138 Potassium 4.7 Chloride 97 L Carbon Dioxide 37 H Anion Gap 9 L BUN 22 H Creatinine 1.4 Est GFR ( Amer) > 60 Est GFR (Non-Af Amer) 51 POC Glucose (mg/dL) Random Glucose 132 H D Calcium 7.8 L Ferritin 15.8 Total Bilirubin 0.7 AST 38 ALT 7 L D Alkaline Phosphatase 98 NT-Pro-B Natriuret Pep 3270 H Total Protein 7.2 Albumin 3.5 Globulin 3.7 Albumin/Globulin Ratio 0.9 L Vitamin B12 603 Folate 11.8 Urine Color Urine Clarity Urine pH Ur Specific [place] Urine Protein Urine Glucose (UA) Urine Ketones Urine Blood Urine Nitrate Urine Bilirubin Urine Urobilinogen Ur Leukocyte Esterase Urine WBC (Auto) Urine RBC (Auto) Urine Bacteria Blood Type Antibody Screen 06/12/18 07:07 WBC RBC Hgb Hct MCV MCH MCHC RDW Plt Count MPV Neut % (Auto) Lymph % (Auto) [place] % (Auto) Eos % (Auto) Baso % (Auto) Neut # (Auto) Lymph # (Auto) [place] # (Auto) Eos # (Auto) Baso # (Auto) Neutrophils % (Manual) Lymphocytes % (Manual) Monocytes % (Manual) Eosinophils % (Manual) Platelet Estimate Hypochromasia (manual) Anisocytosis (manual) Retic Count PT INR Sodium Potassium Chloride Carbon Dioxide Anion Gap BUN Creatinine Est GFR ( Amer) Est GFR (Non-Af Amer) POC Glucose (mg/dL) 127 H Random Glucose Calcium Ferritin Total Bilirubin AST ALT Alkaline Phosphatase NT-Pro-B Natriuret Pep Total Protein Albumin Globulin Albumin/Globulin Ratio Vitamin B12 Folate Urine Color Urine Clarity Urine pH Ur Specific [place] Urine Protein Urine Glucose (UA) Urine Ketones Urine Blood Urine Nitrate Urine Bilirubin Urine Urobilinogen Ur Leukocyte Esterase Urine WBC (Auto) Urine RBC (Auto) Urine Bacteria Blood Type Antibody Screen Assessment & Plan - Assessment and Plan (Free Text) Assessment: 68M with b/l leg wounds, stable, non infected Plan: Patient seen and evaluated Discussed with Dr. Montoya VSS, absent leukocytosis Dressings reapplied with RADHA jones Stable from podiatry standpoint for discharge back to [facility] where Dr. Montoya will follow Will follow while in house - Date & Time Date: 06/12/18 Time: 10:05
--- NOTE | 2018-06-12 10:39 | RAD ---
HISTORY: SOB COMPARISON: Chest x-ray performed 06/03/18 TECHNIQUE: Chest, one view. FINDINGS: Examination limited by habitus and hypoinflation. Patient's chin obscures evaluation of the lung apices. LUNGS: Bilateral pleural effusions and associated consolidations. Central vascular congestion. No definite pneumothorax. CARDIOVASCULAR: Left-sided AICD. Cardiomegaly. OSSEOUS STRUCTURES: Degenerative changes. VISUALIZED UPPER ABDOMEN: Unremarkable. OTHER FINDINGS: None. IMPRESSION: Limited study as above. Bilateral pleural effusions and associated consolidations. Central vascular congestion. Left-sided AICD. Cardiomegaly.
[2018-06-12] MEDS: Ferric Sodium Gluconat Complex 62.5 mg/5 ml Vial IVPB SCH (10:53)
--- NOTE | 2018-06-12 12:42 | CP.PCM.PN ---
Subjective - Date & Time of Evaluation Date of Evaluation: 06/12/18 - Subjective Subjective: patient seen and examined today no nausea, no vomiting, no diarrhea, no fever denies SOB getting prbcs pt adv may return to rehab today after post trasnfusion cbc Objective - Vital Signs/Intake and Output Vital Signs (last 24 hours): Temp Pulse Resp BP Pulse Ox 97.9 F 87 20 109/72 95 06/12/18 07:39 06/12/18 07:39 06/12/18 07:39 06/12/18 09:40 06/12/18 08:22 Intake and Output: 06/12/18 06/12/18 06:59 18:59 Intake Total 900 505 Output Total 200 Balance 700 505 - Medications Medications: Current Medications Acetaminophen (Tylenol 325mg Tab) 650 mg PO Q6 PRN PRN Reason: Pain, Mild (1-3) Aspirin (Aspirin Chewable) 81 mg PO DAILY [facility] Last Admin: 06/12/18 09:40 Dose: 81 mg Carvedilol (Coreg) 3.125 mg PO BID [facility] Last Admin: 06/12/18 09:40 Dose: 3.125 mg Docusate Sodium (Colace) 100 mg PO DAILY [facility] Last Admin: 06/12/18 09:39 Dose: 100 mg Ferric Sodium Gluconate Complex (Ferrlecit) 125 mg IVPB DAILY [facility] Stop: 06/17/18 10:01 Last Admin: 06/12/18 10:53 Dose: 125 mg Furosemide (Lasix) 40 mg PO BID [facility] Last Admin: 06/12/18 09:40 Dose: 40 mg Influenza Virus Vaccine (Flucelvax Quad [id number] Syr) 60 mcg IM .ONCE ONE Stop: 06/13/18 10:01 Pantoprazole Sodium (Protonix Ec Tab) 40 mg PO DAILY [facility] Last Admin: 06/12/18 09:40 Dose: 40 mg Promethazine HCl/Dextromethorphan (Phenergan Dm Syrup) 10 ml PO TID PRN PRN Reason: Cough Rosuvastatin Calcium (Crestor) 5 mg PO HS [facility] Last Admin: 06/11/18 21:12 Dose: Not Given Sacubitril/Valsartan (Entresto 24 Mg-26 Mg) 1 tab PO BID [facility] Last Admin: 06/12/18 09:39 Dose: 1 tab - Labs Labs: 06/12/18 06:41 06/12/18 06:41 PT 15.8 SECONDS (9.7-12.2) H 06/11/18 16:17 INR 1.4 06/11/18 16:17 - Constitutional Appears: Well - Head Exam Head Exam: ATRAUMATIC, NORMAL INSPECTION, NORMOCEPHALIC - Eye Exam Eye Exam: EOMI, Normal appearance, PERRL Pupil Exam: NORMAL ACCOMODATION, PERRL - ENT Exam ENT Exam: Mucous Membranes Moist, Normal Exam - Neck Exam Neck Exam: Full ROM, Normal Inspection. absent: Lymphadenopathy - Respiratory Exam Respiratory Exam: Decreased Breath Sounds - Cardiovascular Exam Cardiovascular Exam: REGULAR RHYTHM, +S1, +S2 - GI/Abdominal Exam GI & Abdominal Exam: Soft, Diminished Bowel Sounds - Rectal Exam Rectal Exam: Deferred Assessment and Plan - Assessment and Plan (Free Text) Plan: patient evaluated today vitals reviewed labs reviewed chest xray reviewed medications reviewed aspirin chewable tablet colace coreg crestor entresto 24mg-26mg ferrlecit lasix phenergan dm syrup protonix ec tab tylenol 325mg tab Status post 1 unit of transfusion again today CBC pending if the hemoglobin is more than 8 will discharge the patient to the rehab tonight Continue with the current follow-ups Discussed with Dr. Razo Hemoglobin is 7.6 IV iron surg consult for bleeding
[2018-06-12 13:54] VITALS: RESP 20
--- NOTE | 2018-06-12 16:07 | CP.PCM.CON ---
History of Present Illness - History of Present Illness History of Present Illness: Reason for consultation: Shortness of breath 68-year-old male with history of liver cirrhosis, hepatic hydrothorax status post thoracentesis recently, CHF status post AICD, COPD was transferred from care home for severe anemia and shortness of breath. In the emergency room patient found to have a hemoglobin of 7.1. Denies any rectal bleed, denies hematemesis. Chest x-ray consistent with small right pleural effusion. Past medical history: COPD, CHF, s/p ICD, HTN, DM, liver cirrhosis. Past surgical history: ICD placement Family history: Denies hematologic and oncologic problems Social history: Former alcohol abuse Allergies: NKA Review of Systems - Review of Systems All systems: reviewed and no additional remarkable complaints except (Shortness of breath) Past Patient History - Infectious Disease Hx of Infectious Diseases: None - Past Medical History & Family History Past Medical History?: Yes - Past Social History Smoking Status: Never Smoked - CARDIAC Hx Atrial Fibrillation: Yes Hx Congestive Heart Failure: Yes Hx Hypercholesterolemia: Yes Hx Hypertension: Yes Hx Pacemaker: Yes - PULMONARY Hx Chronic Obstructive Pulmonary Disease (COPD): Yes - NEUROLOGICAL Hx Neurological Disorder: No - HEENT Hx HEENT Problems: No - RENAL Hx Chronic Kidney Disease: No - ENDOCRINE/METABOLIC Hx Endocrine Disorders: Yes Hx Diabetes Mellitus Type 2: Yes - HEMATOLOGICAL/ONCOLOGICAL Hx Blood Disorders: No - INTEGUMENTARY Hx Dermatological Problems: Yes (lower leg ulcers) Other/Comment: MRSA of leg - MUSCULOSKELETAL/RHEUMATOLOGICAL Hx Arthritis: Yes - GASTROINTESTINAL Hx Pancreatitis: Yes (eval for possible pancreatitis) - GENITOURINARY/GYNECOLOGICAL Hx Genitourinary Disorders: No - PSYCHIATRIC Hx Substance Use: No - SURGICAL HISTORY Hx Appendectomy: Yes - ANESTHESIA Hx Anesthesia: Yes Hx Anesthesia Reactions: No Hx Malignant Hyperthermia: No Meds Allergies/Adverse Reactions: Allergies Allergy/AdvReac Type Severity Reaction Status Date / Time No Known Allergies Allergy Verified 06/11/18 15:47 - Medications Medications: Current Medications Acetaminophen (Tylenol 325mg Tab) 650 mg PO Q6 PRN PRN Reason: Pain, Mild (1-3) Aspirin (Aspirin Chewable) 81 mg PO DAILY [facility] Last Admin: 06/12/18 09:40 Dose: 81 mg Carvedilol (Coreg) 3.125 mg PO BID [facility] Last Admin: 06/12/18 09:40 Dose: 3.125 mg Docusate Sodium (Colace) 100 mg PO DAILY [facility] Last Admin: 06/12/18 09:39 Dose: 100 mg Ferric Sodium Gluconate Complex (Ferrlecit) 125 mg IVPB DAILY [facility] Stop: 06/17/18 10:01 Last Admin: 06/12/18 10:53 Dose: 125 mg Furosemide (Lasix) 40 mg PO BID [facility] Last Admin: 06/12/18 09:40 Dose: 40 mg Influenza Virus Vaccine (Flucelvax Quad [id number] Syr) 60 mcg IM .ONCE ONE Stop: 06/13/18 10:01 Pantoprazole Sodium (Protonix Ec Tab) 40 mg PO DAILY [facility] Last Admin: 06/12/18 09:40 Dose: 40 mg Promethazine HCl/Dextromethorphan (Phenergan Dm Syrup) 10 ml PO TID PRN PRN Reason: Cough Rosuvastatin Calcium (Crestor) 5 mg PO HS [facility] Last Admin: 06/11/18 21:12 Dose: Not Given Sacubitril/Valsartan (Entresto 24 Mg-26 Mg) 1 tab PO BID [facility] Last Admin: 06/12/18 09:39 Dose: 1 tab Physical Exam - Head Exam Head Exam: ATRAUMATIC, NORMOCEPHALIC - ENT Exam ENT Exam: Mucous Membranes Moist - Neck Exam Neck exam: Positive for: Normal Inspection - Respiratory Exam Respiratory Exam: Decreased Breath Sounds - Cardiovascular Exam Cardiovascular Exam: REGULAR RHYTHM - GI/Abdominal Exam GI & Abdominal Exam: Distended - Extremities Exam Extremities exam: Positive for: pedal edema Results - Vital Signs Recent Vital Signs: Last Vital Signs Temp 97.6 F 06/12/18 14:24 Pulse 76 06/12/18 14:24 Resp 20 06/12/18 14:24 BP 96/60 L 06/12/18 14:24 Pulse Ox 95 06/12/18 08:22 - Labs Result Diagrams: 06/12/18 06:41 06/12/18 06:41 Labs: Laboratory Results - last 24 hr 06/11/18 06/11/18 06/11/18 16:17 16:17 16:17 WBC 6.2 RBC 2.99 L Hgb 7.1 L Hct 23.7 L MCV 79.2 L MCH 23.7 L MCHC 30.0 L RDW 20.6 H Plt Count 167 MPV 7.8 Neut % (Auto) 60.5 Lymph % (Auto) 15.6 L [place] % (Auto) 20.0 H Eos % (Auto) 2.7 Baso % (Auto) 1.2 Neut # (Auto) 3.8 Lymph # (Auto) 1.0 [place] # (Auto) 1.2 H Eos # (Auto) 0.2 Baso # (Auto) 0.1 Neutrophils % (Manual) Lymphocytes % (Manual) Monocytes % (Manual) Eosinophils % (Manual) Platelet Estimate Hypochromasia (manual) Anisocytosis (manual) Retic Count PT INR Sodium 138 Potassium 5.0 Chloride 98 Carbon Dioxide 33 H Anion Gap 12 BUN 24 H Creatinine 1.6 H Est GFR ( Amer) 53 Est GFR (Non-Af Amer) 43 POC Glucose (mg/dL) Random Glucose 90 Calcium 8.0 L Ferritin Total Bilirubin 0.7 AST 37 ALT 9 L Alkaline Phosphatase 96 NT-Pro-B Natriuret Pep Total Protein 7.5 Albumin 3.6 Globulin 3.9 Albumin/Globulin Ratio 0.9 L Vitamin B12 Folate Urine Color Yellow Urine Clarity Clear Urine pH 6.0 Ur Specific [place] 1.006 Urine Protein Negative Urine Glucose (UA) Normal Urine Ketones Negative Urine Blood Negative Urine Nitrate Negative Urine Bilirubin Negative Urine Urobilinogen 4.0 Ur Leukocyte Esterase Neg Urine WBC (Auto) < 1 Urine RBC (Auto) < 1 Urine Bacteria Rare Blood Type Antibody Screen 06/11/18 06/11/18 06/11/18 16:17 16:17 21:07 WBC RBC Hgb Hct MCV MCH MCHC RDW Plt Count MPV Neut % (Auto) Lymph % (Auto) [place] % (Auto) Eos % (Auto) Baso % (Auto) Neut # (Auto) Lymph # (Auto) [place] # (Auto) Eos # (Auto) Baso # (Auto) Neutrophils % (Manual) Lymphocytes % (Manual) Monocytes % (Manual) Eosinophils % (Manual) Platelet Estimate Hypochromasia (manual) Anisocytosis (manual) Retic Count PT 15.8 H INR 1.4 Sodium Potassium Chloride Carbon Dioxide Anion Gap BUN Creatinine Est GFR ( Amer) Est GFR (Non-Af Amer) POC Glucose (mg/dL) 155 H Random Glucose Calcium Ferritin Total Bilirubin AST ALT Alkaline Phosphatase NT-Pro-B Natriuret Pep Total Protein Albumin Globulin Albumin/Globulin Ratio Vitamin B12 Folate Urine Color Urine Clarity Urine pH Ur Specific [place] Urine Protein Urine Glucose (UA) Urine Ketones Urine Blood Urine Nitrate Urine Bilirubin Urine Urobilinogen Ur Leukocyte Esterase Urine WBC (Auto) Urine RBC (Auto) Urine Bacteria Blood Type A POSITIVE Antibody Screen Negative 06/12/18 06/12/18 06/12/18 06:41 06:41 06:41 WBC 5.9 RBC 2.92 L Hgb 7.2 L Hct 23.5 L MCV 80.6 MCH 24.7 L MCHC 30.7 L RDW 19.8 H Plt Count 168 MPV 8.3 Neut % (Auto) 62.1 Lymph % (Auto) 14.2 L [place] % (Auto) 20.3 H Eos % (Auto) 2.9 Baso % (Auto) 0.5 Neut # (Auto) 3.7 Lymph # (Auto) 0.8 L [place] # (Auto) 1.2 H Eos # (Auto) 0.2 Baso # (Auto) 0.0 Neutrophils % (Manual) 57 Lymphocytes % (Manual) 17 L Monocytes % (Manual) 25 H Eosinophils % (Manual) 1 Platelet Estimate Normal Hypochromasia (manual) Slight Anisocytosis (manual) Moderate Retic Count 2.4 H D PT INR Sodium 138 Potassium 4.7 Chloride 97 L Carbon Dioxide 37 H Anion Gap 9 L BUN 22 H Creatinine 1.4 Est GFR ( Amer) > 60 Est GFR (Non-Af Amer) 51 POC Glucose (mg/dL) Random Glucose 132 H D Calcium 7.8 L Ferritin 15.8 Total Bilirubin 0.7 AST 38 ALT 7 L D Alkaline Phosphatase 98 NT-Pro-B Natriuret Pep 3270 H Total Protein 7.2 Albumin 3.5 Globulin 3.7 Albumin/Globulin Ratio 0.9 L Vitamin B12 603 Folate 11.8 Urine Color Urine Clarity Urine pH Ur Specific [place] Urine Protein Urine Glucose (UA) Urine Ketones Urine Blood Urine Nitrate Urine Bilirubin Urine Urobilinogen Ur Leukocyte Esterase Urine WBC (Auto) Urine RBC (Auto) Urine Bacteria Blood Type Antibody Screen 06/12/18 06/12/18 07:07 11:19 WBC RBC Hgb Hct MCV MCH MCHC RDW Plt Count MPV Neut % (Auto) Lymph % (Auto) [place] % (Auto) Eos % (Auto) Baso % (Auto) Neut # (Auto) Lymph # (Auto) [place] # (Auto) Eos # (Auto) Baso # (Auto) Neutrophils % (Manual) Lymphocytes % (Manual) Monocytes % (Manual) Eosinophils % (Manual) Platelet Estimate Hypochromasia (manual) Anisocytosis (manual) Retic Count PT INR Sodium Potassium Chloride Carbon Dioxide Anion Gap BUN Creatinine Est GFR ( Amer) Est GFR (Non-Af Amer) POC Glucose (mg/dL) 127 H 114 H Random Glucose Calcium Ferritin Total Bilirubin AST ALT Alkaline Phosphatase NT-Pro-B Natriuret Pep Total Protein Albumin Globulin Albumin/Globulin Ratio Vitamin B12 Folate Urine Color Urine Clarity Urine pH Ur Specific [place] Urine Protein Urine Glucose (UA) Urine Ketones Urine Blood Urine Nitrate Urine Bilirubin Urine Urobilinogen Ur Leukocyte Esterase Urine WBC (Auto) Urine RBC (Auto) Urine Bacteria Blood Type Antibody Screen Assessment & Plan (1) Pleural effusion Assessment and Plan: Hepatic hydrothorax secondary to ascites and cirrhosis of liver, status post thoracentesis Shortness of breath secondary to anemia Patient not candidate for TIPS Does not need thoracentesis at this point Transfuse packed RBCs DuoNeb nebulizer treatment Status: Acute (2) Anemia Status: Acute (3) COPD (chronic obstructive pulmonary disease) Status: Acute (4) Cirrhosis Status: Chronic Priority: Medium
[2018-06-12 19:36] LABS: BASO % 0.8 % (0.0-2.0); EOS # 0.1 K/uL (0.0-0.7); EOS % 1.5 % (0.0-4.0); HEMOGLOBIN 7.6 g/dL (12.0-18.0); LYMPH # 0.7 K/uL (1.0-4.3); LYMPH % 13.5 % (20.0-40.0); MEAN CELL VOLUME 80.1 fL (80.0-94.0); MEAN CORPUSCULAR HEMOGLOBIN 23.8 pg (27.0-31.0); MEAN CORPUSCULAR HGB CONC 29.7 g/dL (33.0-37.0); MEAN PLATELET VOLUME 8.4 fL (7.2-11.7); MONO # 1.3 K/uL (0.0-0.8); NEUT # 3.4 K/uL (1.8-7.0); NEUT % 61.2 % (50.0-75.0); NRBC % 0.3 % (0.0-2.0); PLATELET COUNT 157 K/uL (130-400); RBC 3.19 Mil/uL (4.40-5.90); WHITE BLOOD COUNT 5.5 K/uL (4.8-10.8)
[2018-06-12] MEDS: Albuterol-Ipratrop 3 mg / 0.5 (3 ml) UD INH SCH (20:06)
[2018-06-12 20:30] LABS: ANISOCYTOSIS MODERATE; EOSINOPHIL 3 % (0-4); MONOCYTE 21 % (0-10); NEUTROPHIL 58 % (50-75); PLATELET ESTIMATE NORMAL (NORMAL); REACTIVE LYMPHOCYTES 18 % (0-0)
[2018-06-12 20:31] LABS: HYPOCHROMIC MODERATE; OVALOCYTES SLIGHT; POIKILOCYTOSIS SLIGHT; TARGET CELLS SLIGHT
[2018-06-12 20:33] LABS: TOTAL CELLS COUNTED 100
--- NOTE | 2018-06-13 00:54 | CP.PCM.PN ---
Subjective - Date & Time of Evaluation Date of Evaluation: 06/12/18 Time of Evaluation: 18:00 - Subjective Subjective: No complaints. Objective - Vital Signs/Intake and Output Vital Signs (last 24 hours): Temp Pulse Resp BP Pulse Ox 97.4 F L 77 20 125/70 98 06/12/18 16:35 06/12/18 16:35 06/12/18 16:35 06/12/18 17:31 06/12/18 16:00 Intake and Output: 06/12/18 06/13/18 18:59 06:59 Intake Total 1505 300 Balance 1505 300 - Medications Medications: Current Medications Acetaminophen (Tylenol 325mg Tab) 650 mg PO Q6 PRN PRN Reason: Pain, Mild (1-3) Albuterol/Ipratropium (Duoneb 3 Mg/0.5 Mg (3 Ml) Ud) 3 ml INH RQ6 [facility] Last Admin: 06/12/18 20:06 Dose: Not Given Aspirin (Aspirin Chewable) 81 mg PO DAILY [facility] Last Admin: 06/12/18 09:40 Dose: 81 mg Carvedilol (Coreg) 3.125 mg PO BID [facility] Last Admin: 06/12/18 17:31 Dose: 3.125 mg Docusate Sodium (Colace) 100 mg PO DAILY [facility] Last Admin: 06/12/18 09:39 Dose: 100 mg Ferric Sodium Gluconate Complex (Ferrlecit) 125 mg IVPB DAILY [facility] Stop: 06/17/18 10:01 Last Admin: 06/12/18 10:53 Dose: 125 mg Furosemide (Lasix) 40 mg PO BID [facility] Last Admin: 06/12/18 17:31 Dose: 40 mg Influenza Virus Vaccine (Flucelvax Quad [id number] Syr) 60 mcg IM .ONCE ONE Stop: 06/13/18 10:01 Pantoprazole Sodium (Protonix Ec Tab) 40 mg PO DAILY [facility] Last Admin: 06/12/18 09:40 Dose: 40 mg Promethazine HCl/Dextromethorphan (Phenergan Dm Syrup) 10 ml PO TID PRN PRN Reason: Cough Rosuvastatin Calcium (Crestor) 5 mg PO HS [facility] Last Admin: 06/12/18 21:51 Dose: 5 mg Sacubitril/Valsartan (Entresto 24 Mg-26 Mg) 1 tab PO BID [facility] Last Admin: 06/12/18 17:30 Dose: 1 tab - Labs Labs: 06/12/18 19:08 06/12/18 06:41 PT 15.8 SECONDS (9.7-12.2) H 06/11/18 16:17 INR 1.4 06/11/18 16:17 - Head Exam Head Exam: ATRAUMATIC - Eye Exam Eye Exam: Normal appearance - ENT Exam ENT Exam: Mucous Membranes Dry - Respiratory Exam Respiratory Exam: NORMAL BREATHING PATTERN - Cardiovascular Exam Cardiovascular Exam: +S1, +S2 - GI/Abdominal Exam GI & Abdominal Exam: Normal Bowel Sounds - Extremities Exam Extremities Exam: Pedal Edema Assessment and Plan (1) Anemia Assessment & Plan: iron deficiency anemia transfusion support IV iron f/u fobt Status: Acute
[2018-06-13] MEDS: Albuterol-Ipratrop 3 mg / 0.5 (3 ml) UD INH SCH ×4 (01:27→19:12)
--- NOTE | 2018-06-13 06:30 | CP.PCM.CON ---
<Juvencio Dominguez D - Last Filed: 06/13/18 06:26> History of Present Illness - History of Present Illness History of Present Illness: SURGERY CONSULT NOTE FOR DR. EBONI KellerM presents to hospital for bleeding wound in the lower extremities. Surgery consulted for liver cirrhosis and evaluation for TIPS procedure. Patient denies any abdominal pain, denies nausea or vomiting. He has an appetite and has been tolerating diet. He also has been going to bathroom normally. Patient admits to history of alcohol abuse and states he quit 5 years ago. PMH: COPD, CHF, s/p ICD, HTN, DM, liver cirrhosis. PSH: ICD placement, Appendectomy, Ventral hernia repair" Social: denies tobacco abuse, admits to history of alcohol abuse, Denies illicit drug use Allergies: NKDA Past Patient History - Infectious Disease Hx of Infectious Diseases: None - Past Medical History & Family History Past Medical History?: Yes - Past Social History Smoking Status: Never Smoked - CARDIAC Hx Atrial Fibrillation: Yes Hx Congestive Heart Failure: Yes Hx Hypercholesterolemia: Yes Hx Hypertension: Yes Hx Pacemaker: Yes - PULMONARY Hx Chronic Obstructive Pulmonary Disease (COPD): Yes - NEUROLOGICAL Hx Neurological Disorder: No - HEENT Hx HEENT Problems: No - RENAL Hx Chronic Kidney Disease: No - ENDOCRINE/METABOLIC Hx Endocrine Disorders: Yes Hx Diabetes Mellitus Type 2: Yes - HEMATOLOGICAL/ONCOLOGICAL Hx Blood Disorders: No - INTEGUMENTARY Hx Dermatological Problems: Yes (lower leg ulcers) Other/Comment: MRSA of leg - MUSCULOSKELETAL/RHEUMATOLOGICAL Hx Arthritis: Yes - GASTROINTESTINAL Hx Pancreatitis: Yes (eval for possible pancreatitis) - GENITOURINARY/GYNECOLOGICAL Hx Genitourinary Disorders: No - PSYCHIATRIC Hx Substance Use: No - SURGICAL HISTORY Hx Appendectomy: Yes - ANESTHESIA Hx Anesthesia: Yes Hx Anesthesia Reactions: No Hx Malignant Hyperthermia: No Meds Allergies/Adverse Reactions: Allergies Allergy/AdvReac Type Severity Reaction Status Date / Time No Known Allergies Allergy Verified 06/11/18 15:47 - Medications Medications: Current Medications Acetaminophen (Tylenol 325mg Tab) 650 mg PO Q6 PRN PRN Reason: Pain, Mild (1-3) Albuterol/Ipratropium (Duoneb 3 Mg/0.5 Mg (3 Ml) Ud) 3 ml INH RQ6 [facility] Last Admin: 06/13/18 01:27 Dose: Not Given Aspirin (Aspirin Chewable) 81 mg PO DAILY [facility] Last Admin: 06/12/18 09:40 Dose: 81 mg Carvedilol (Coreg) 3.125 mg PO BID [facility] Last Admin: 06/12/18 17:31 Dose: 3.125 mg Docusate Sodium (Colace) 100 mg PO DAILY [facility] Last Admin: 06/12/18 09:39 Dose: 100 mg Ferric Sodium Gluconate Complex (Ferrlecit) 125 mg IVPB DAILY [facility] Stop: 06/17/18 10:01 Last Admin: 06/12/18 10:53 Dose: 125 mg Furosemide (Lasix) 40 mg PO BID [facility] Last Admin: 06/12/18 17:31 Dose: 40 mg Influenza Virus Vaccine (Flucelvax Quad [id number] Syr) 60 mcg IM .ONCE ONE Stop: 06/13/18 10:01 Pantoprazole Sodium (Protonix Ec Tab) 40 mg PO DAILY [facility] Last Admin: 06/12/18 09:40 Dose: 40 mg Promethazine HCl/Dextromethorphan (Phenergan Dm Syrup) 10 ml PO TID PRN PRN Reason: Cough Rosuvastatin Calcium (Crestor) 5 mg PO HS [facility] Last Admin: 06/12/18 21:51 Dose: 5 mg Sacubitril/Valsartan (Entresto 24 Mg-26 Mg) 1 tab PO BID [facility] Last Admin: 06/12/18 17:30 Dose: 1 tab Physical Exam - Constitutional Appears: Non-toxic, No Acute Distress - Eye Exam Eye Exam: EOMI, PERRL - Respiratory Exam Respiratory Exam: NORMAL BREATHING PATTERN - Cardiovascular Exam Cardiovascular Exam: REGULAR RHYTHM, +S1, +S2 - GI/Abdominal Exam GI & Abdominal Exam: Distended, Soft. absent: Firm, Guarding, Rebound, Rigid, Tenderness - Extremities Exam Extremities exam: Negative for: pedal edema Additional comments: Bilateral lower leg wound, dressing clean dry intact - Neurological Exam Neurological exam: Alert, Oriented x3 - Skin Skin Exam: Dry, Intact, Normal Color, Warm Results - Vital Signs Recent Vital Signs: Last Vital Signs Temp 97.4 F L 06/13/18 00:00 Pulse 76 06/13/18 00:00 Resp 20 06/13/18 00:00 BP 125/57 L 06/13/18 00:00 Pulse Ox 98 06/13/18 00:00 - Labs Result Diagrams: 06/12/18 19:08 06/12/18 06:41 Labs: Laboratory Results - last 24 hr 06/11/18 06/12/18 06/12/18 16:17 06:41 06:41 WBC 5.9 RBC 2.92 L Hgb 7.2 L Hct 23.5 L MCV 80.6 MCH 24.7 L MCHC 30.7 L RDW 19.8 H Plt Count 168 MPV 8.3 Neut % (Auto) 62.1 Lymph % (Auto) 14.2 L [place] % (Auto) 20.3 H Eos % (Auto) 2.9 Baso % (Auto) 0.5 Neut # (Auto) 3.7 Lymph # (Auto) 0.8 L [place] # (Auto) 1.2 H Eos # (Auto) 0.2 Baso # (Auto) 0.0 Neutrophils % (Manual) 57 Lymphocytes % (Manual) 17 L Reactive Lymphs % Monocytes % (Manual) 25 H Eosinophils % (Manual) 1 Platelet Estimate Normal Hypochromasia (manual) Slight Poikilocytosis (manual Anisocytosis (manual) Moderate Target Cells Ovalocytes Retic Count Sodium 138 Potassium 4.7 Chloride 97 L Carbon Dioxide 37 H Anion Gap 9 L BUN 22 H Creatinine 1.4 Est GFR ( Amer) > 60 Est GFR (Non-Af Amer) 51 POC Glucose (mg/dL) Random Glucose 132 H D Calcium 7.8 L Ferritin 15.8 Total Bilirubin 0.7 AST 38 ALT 7 L D Alkaline Phosphatase 98 NT-Pro-B Natriuret Pep 3270 H Total Protein 7.2 Albumin 3.5 Globulin 3.7 Albumin/Globulin Ratio 0.9 L Vitamin B12 603 Folate 11.8 Blood Type A POSITIVE Antibody Screen Negative 06/12/18 06/12/18 06/12/18 06:41 07:07 11:19 WBC RBC Hgb Hct MCV MCH MCHC RDW Plt Count MPV Neut % (Auto) Lymph % (Auto) [place] % (Auto) Eos % (Auto) Baso % (Auto) Neut # (Auto) Lymph # (Auto) [place] # (Auto) Eos # (Auto) Baso # (Auto) Neutrophils % (Manual) Lymphocytes % (Manual) Reactive Lymphs % Monocytes % (Manual) Eosinophils % (Manual) Platelet Estimate Hypochromasia (manual) Poikilocytosis (manual Anisocytosis (manual) Target Cells Ovalocytes Retic Count 2.4 H D Sodium Potassium Chloride Carbon Dioxide Anion Gap BUN Creatinine Est GFR ( Amer) Est GFR (Non-Af Amer) POC Glucose (mg/dL) 127 H 114 H Random Glucose Calcium Ferritin Total Bilirubin AST ALT Alkaline Phosphatase NT-Pro-B Natriuret Pep Total Protein Albumin Globulin Albumin/Globulin Ratio Vitamin B12 Folate Blood Type Antibody Screen 06/12/18 06/12/18 06/12/18 16:06 19:08 20:51 WBC 5.5 RBC 3.19 L Hgb 7.6 L Hct 25.5 L MCV 80.1 MCH 23.8 L MCHC 29.7 L RDW 19.0 H Plt Count 157 MPV 8.4 Neut % (Auto) 61.2 Lymph % (Auto) 13.5 L [place] % (Auto) 23.0 H Eos % (Auto) 1.5 Baso % (Auto) 0.8 Neut # (Auto) 3.4 Lymph # (Auto) 0.7 L [place] # (Auto) 1.3 H Eos # (Auto) 0.1 Baso # (Auto) 0.0 Neutrophils % (Manual) 58 Lymphocytes % (Manual) TEST NOT PERFORMED Reactive Lymphs % 18 H Monocytes % (Manual) 21 H Eosinophils % (Manual) 3 Platelet Estimate Normal Hypochromasia (manual) Moderate Poikilocytosis (manual Slight Anisocytosis (manual) Moderate Target Cells Slight Ovalocytes Slight Retic Count Sodium Potassium Chloride Carbon Dioxide Anion Gap BUN Creatinine Est GFR ( Amer) Est GFR (Non-Af Amer) POC Glucose (mg/dL) 127 H 158 H Random Glucose Calcium Ferritin Total Bilirubin AST ALT Alkaline Phosphatase NT-Pro-B Natriuret Pep Total Protein Albumin Globulin Albumin/Globulin Ratio Vitamin B12 Folate Blood Type Antibody Screen Assessment & Plan - Assessment and Plan (Free Text) Assessment: 68M with history of alcohol abuse presents with liver cirrhosis [id number] Plan: - f.u echo for cardiac eval - will evaluate for TIPS, requires echo first - Further recs discuss with Dr. Eboni Dominguez, PGY3 <Gorge Dick - Last Filed: 06/13/18 15:25> Meds - Medications Medications: Current Medications Acetaminophen (Tylenol 325mg Tab) 650 mg PO Q6 PRN PRN Reason: Pain, Mild (1-3) Albuterol/Ipratropium (Duoneb 3 Mg/0.5 Mg (3 Ml) Ud) 3 ml INH RQ6 [facility] Last Admin: 06/13/18 13:10 Dose: 3 ml Aspirin (Aspirin Chewable) 81 mg PO DAILY [facility] Last Admin: 06/13/18 10:01 Dose: Not Given Carvedilol (Coreg) 3.125 mg PO BID [facility] Last Admin: 06/13/18 09:46 Dose: 3.125 mg Docusate Sodium (Colace) 100 mg PO DAILY [facility] Last Admin: 06/13/18 09:46 Dose: 100 mg Ferric Sodium Gluconate Complex (Ferrlecit) 125 mg IVPB DAILY [facility] Stop: 06/17/18 10:01 Last Admin: 06/13/18 09:47 Dose: 125 mg Furosemide (Lasix) 40 mg PO BID [facility] Last Admin: 06/13/18 09:46 Dose: 40 mg Vancomycin HCl 1.5 gm/ Sodium (Chloride) 500 mls @ 250 mls/hr IVPB Q24H [facility] Stop: 06/26/18 10:59 Last Admin: 06/13/18 09:45 Dose: 250 mls/hr Pantoprazole Sodium (Protonix Ec Tab) 40 mg PO DAILY [facility] Last Admin: 06/13/18 09:47 Dose: 40 mg Promethazine HCl/Dextromethorphan (Phenergan Dm Syrup) 10 ml PO TID PRN PRN Reason: Cough Rosuvastatin Calcium (Crestor) 5 mg PO HS [facility] Last Admin: 06/12/18 21:51 Dose: 5 mg Sacubitril/Valsartan (Entresto 24 Mg-26 Mg) 1 tab PO BID [facility] Last Admin: 06/13/18 09:47 Dose: 1 tab Results - Vital Signs Recent Vital Signs: Last Vital Signs Temp 97.6 F 06/13/18 14:53 Pulse 77 06/13/18 14:53 Resp 20 06/13/18 14:53 BP 101/58 L 06/13/18 14:53 Pulse Ox 95 06/13/18 07:51 - Labs Result Diagrams: 06/13/18 12:00 06/12/18 06:41 Labs: Laboratory Results - last 24 hr 06/11/18 06/12/18 06/12/18 16:17 16:06 19:08 WBC 5.5 RBC 3.19 L Hgb 7.6 L Hct 25.5 L MCV 80.1 MCH 23.8 L MCHC 29.7 L RDW 19.0 H Plt Count 157 MPV 8.4 Neut % (Auto) 61.2 Lymph % (Auto) 13.5 L [place] % (Auto) 23.0 H Eos % (Auto) 1.5 Baso % (Auto) 0.8 Neut # (Auto) 3.4 Lymph # (Auto) 0.7 L [place] # (Auto) 1.3 H Eos # (Auto) 0.1 Baso # (Auto) 0.0 Neutrophils % (Manual) 58 Lymphocytes % (Manual) TEST NOT PERFORMED Reactive Lymphs % 18 H Monocytes % (Manual) 21 H Eosinophils % (Manual) 3 Basophils % (Manual) Nucleated RBC % Platelet Estimate Normal Hypochromasia (manual) Moderate Poikilocytosis (manual Slight Anisocytosis (manual) Moderate Target Cells Slight Ovalocytes Slight POC Glucose (mg/dL) 127 H Blood Type A POSITIVE Antibody Screen Negative 06/12/18 06/13/18 06/13/18 20:51 06:31 06:42 WBC 5.7 RBC 3.20 L Hgb 7.8 L Hct 25.5 L MCV 79.7 L MCH 24.3 L MCHC 30.5 L RDW 19.6 H Plt Count 164 MPV 8.2 Neut % (Auto) 59.4 Lymph % (Auto) 15.4 L [place] % (Auto) 21.7 H Eos % (Auto) 2.6 Baso % (Auto) 0.9 Neut # (Auto) 3.4 Lymph # (Auto) 0.9 L [place] # (Auto) 1.2 H Eos # (Auto) 0.1 Baso # (Auto) 0.1 Neutrophils % (Manual) 54 Lymphocytes % (Manual) 17 L Reactive Lymphs % Monocytes % (Manual) 25 H Eosinophils % (Manual) 3 Basophils % (Manual) 1 Nucleated RBC % 2 H Platelet Estimate Normal Hypochromasia (manual) Moderate Poikilocytosis (manual Slight Anisocytosis (manual) Moderate Target Cells Moderate Ovalocytes Slight POC Glucose (mg/dL) 158 H 103 Blood Type Antibody Screen 06/13/18 06/13/18 11:08 12:00 WBC 6.1 RBC 3.18 L Hgb 7.8 L Hct 25.5 L MCV 80.2 MCH 24.6 L MCHC 30.7 L RDW 19.6 H Plt Count 180 MPV 8.1 Neut % (Auto) 59.1 Lymph % (Auto) 14.6 L [place] % (Auto) 22.3 H Eos % (Auto) 3.3 Baso % (Auto) 0.7 Neut # (Auto) 3.6 Lymph # (Auto) 0.9 L [place] # (Auto) 1.4 H Eos # (Auto) 0.2 Baso # (Auto) 0.0 Neutrophils % (Manual) 59 Lymphocytes % (Manual) 15 L Reactive Lymphs % Monocytes % (Manual) 22 H Eosinophils % (Manual) 4 Basophils % (Manual) Nucleated RBC % 1 H Platelet Estimate Normal Hypochromasia (manual) Moderate Poikilocytosis (manual Anisocytosis (manual) Moderate Target Cells Moderate Ovalocytes POC Glucose (mg/dL) 211 H Blood Type Antibody Screen Assessment & Plan - Assessment and Plan (Free Text) Plan: All medical record entries made by the resident were at my direction. I have reviewed the chart and agree that the record accurately reflects my personal performance of the history, physical exam, medical decision making for this patient. 68 year old AA male with prior history of ETOH use. Quick 6 years ago. Admitted for right pleural effusion and ascites, possibly due to hepatoh ydrothorax. Patient also has a reported history of CHF and COPD. Was asked to see patient to determine if he is a TIPSS candidate. He notes every few weeks he is admitted to drain pleural fluid. No history of GI bleed or encephalopathy. His abdomen is firm and he has ascites on CAT scan exam. He underwent a right thoracentesis on 06/04/18. He is on carvedilol and lacix 40 bid. Given he has CHF and ascites/hepatohydrothorax, he may benefit from stopping carvedilol. Await final echo results. If his LVEF is about 50%, he has no right heart failure, or signoificant pulmonary hypertension, he may benefit from a TIPSS procedure. I gave him my card and office number for followup
[2018-06-13 06:53] LABS: BASO # 0.1 K/uL (0.0-0.2); BASO % 0.9 % (0.0-2.0); EOS # 0.1 K/uL (0.0-0.7); EOS % 2.6 % (0.0-4.0); HEMOGLOBIN 7.8 g/dL (12.0-18.0); LYMPH # 0.9 K/uL (1.0-4.3); LYMPH % 15.4 % (20.0-40.0); MEAN CELL VOLUME 79.7 fL (80.0-94.0); MEAN CORPUSCULAR HEMOGLOBIN 24.3 pg (27.0-31.0); MEAN CORPUSCULAR HGB CONC 30.5 g/dL (33.0-37.0); MEAN PLATELET VOLUME 8.2 fL (7.2-11.7); MONO # 1.2 K/uL (0.0-0.8); MONO % 21.7 % (0.0-10.0); NEUT # 3.4 K/uL (1.8-7.0); NEUT % 59.4 % (50.0-75.0); NRBC % 0.4 % (0.0-2.0); PLATELET COUNT 164 K/uL (130-400); RED CELL DISTRIBUTION WIDTH 19.6 % (11.5-14.5); WHITE BLOOD COUNT 5.7 K/uL (4.8-10.8)
[2018-06-13 07:58] VITALS: O2SAT 95
[2018-06-13] MEDS ORDERED: Vancomycin 1 g Inj IVPB SCH (08:15)
[2018-06-13 08:46] LABS: BASOPHIL 1 % (0-2); EOSINOPHIL 3 % (0-4); LYMPHOCYTE 17 % (20-40); MONOCYTE 25 % (0-10); NEUTROPHIL 54 % (50-75); NUCLEATED RED BLOOD CELL 2 % (0-0); TOTAL CELLS COUNTED 100
[2018-06-13 08:47] LABS: ANISOCYTOSIS MODERATE; HYPOCHROMIC MODERATE; OVALOCYTES SLIGHT; PLATELET ESTIMATE NORMAL (NORMAL); POIKILOCYTOSIS SLIGHT; TARGET CELLS MODERATE
[2018-06-13] MEDS ORDERED: Vancomycin 1.5 GM in Sodium Chloride 0.9% 500 ML IVPB SCH (09:00)
[2018-06-13] MEDS: Pantoprazole 40 mg EC Tab PO SCH (09:47)
[2018-06-13] MEDS: Sacubitril/Valsartan 24-26mg Tab PO SCH ×2 (09:47→18:23)
[2018-06-13] MEDS: Ferric Sodium Gluconat Complex 62.5 mg/5 ml Vial IVPB SCH (09:47)
[2018-06-13] MEDS ORDERED: Influenza Vaccine 60 mcg/0.5 mL SYR (4YR UP) IM ONE (10:00)
--- NOTE | 2018-06-13 11:28 | CP.PCM.PN ---
Subjective - Date & Time of Evaluation Date of Evaluation: 06/13/18 Objective - Vital Signs/Intake and Output Vital Signs (last 24 hours): Temp Pulse Resp BP Pulse Ox 97.5 F L 85 20 117/71 95 06/13/18 07:51 06/13/18 08:50 06/13/18 07:51 06/13/18 09:46 06/13/18 07:51 Intake and Output: 06/13/18 06/13/18 06:59 18:59 Intake Total 480 Balance 480 - Medications Medications: Current Medications Acetaminophen (Tylenol 325mg Tab) 650 mg PO Q6 PRN PRN Reason: Pain, Mild (1-3) Albuterol/Ipratropium (Duoneb 3 Mg/0.5 Mg (3 Ml) Ud) 3 ml INH RQ6 [facility] Last Admin: 06/13/18 07:55 Dose: 3 ml Aspirin (Aspirin Chewable) 81 mg PO DAILY [facility] Last Admin: 06/13/18 10:01 Dose: Not Given Carvedilol (Coreg) 3.125 mg PO BID [facility] Last Admin: 06/13/18 09:46 Dose: 3.125 mg Docusate Sodium (Colace) 100 mg PO DAILY [facility] Last Admin: 06/13/18 09:46 Dose: 100 mg Ferric Sodium Gluconate Complex (Ferrlecit) 125 mg IVPB DAILY [facility] Stop: 06/17/18 10:01 Last Admin: 06/13/18 09:47 Dose: 125 mg Furosemide (Lasix) 40 mg PO BID [facility] Last Admin: 06/13/18 09:46 Dose: 40 mg Vancomycin HCl 1.5 gm/ Sodium (Chloride) 500 mls @ 250 mls/hr IVPB Q24H [facility] Stop: 06/26/18 10:59 Last Admin: 06/13/18 09:45 Dose: 250 mls/hr Pantoprazole Sodium (Protonix Ec Tab) 40 mg PO DAILY [facility] Last Admin: 06/13/18 09:47 Dose: 40 mg Promethazine HCl/Dextromethorphan (Phenergan Dm Syrup) 10 ml PO TID PRN PRN Reason: Cough Rosuvastatin Calcium (Crestor) 5 mg PO HS [facility] Last Admin: 06/12/18 21:51 Dose: 5 mg Sacubitril/Valsartan (Entresto 24 Mg-26 Mg) 1 tab PO BID [facility] Last Admin: 06/13/18 09:47 Dose: 1 tab - Labs Labs: 06/13/18 06:42 06/12/18 06:41 PT 15.8 SECONDS (9.7-12.2) H 06/11/18 16:17 INR 1.4 06/11/18 16:17 Assessment and Plan - Assessment and Plan (Free Text) Plan: Status post surgical consult by Dr. Salcedo patient's followp with dr. diamante shanks also Going to get one more transfusion today Patient's discharge was hold because of hemoglobin did not go up much it was from 7.2-7.6 after 2 units of PRBCs Follow-up with Dr. Mathis who is a hemo- Echocardiogram advised Surgical evaluations for TIPS
--- NOTE | 2018-06-13 11:56 | CP.PCM.PN ---
Subjective - Date & Time of Evaluation Date of Evaluation: 06/13/18 Time of Evaluation: 09:00 - Subjective Subjective: Patient was seen and examined Admits to minimal SOB but much improved Breathing has improved Denies fevers, chest pain, cough Afebrile HgB is 7.8. Once patient HgB improves he is clinically stable for discharge. Patient is clear from Pulmonology standpoint Physical Exam O2 Saturation 95% NC General: NAD Cardio: S1, S2 Resp: Decreased breath sounds Abd: Soft, Non-tender Chest Xray 06/11- Limited Study above. Bilateral Pleural effusions and associated consolidations. Central vascular congestion. Left-sided CAD. 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, status post t horacentesis -Shortness of breath secondary to Anemia - Patient not a candidate for TIPS -Does not need thoracentesis at this point - Transfuse RBCs -Continue nebulizer treatement Objective - Vital Signs/Intake and Output Vital Signs (last 24 hours): Temp Pulse Resp BP Pulse Ox 97.5 F L 85 20 117/71 95 06/13/18 07:51 06/13/18 08:50 06/13/18 07:51 06/13/18 09:46 06/13/18 07:51 Intake and Output: 06/13/18 06/13/18 06:59 18:59 Intake Total 480 Balance 480 - Medications Medications: Current Medications Acetaminophen (Tylenol 325mg Tab) 650 mg PO Q6 PRN PRN Reason: Pain, Mild (1-3) Albuterol/Ipratropium (Duoneb 3 Mg/0.5 Mg (3 Ml) Ud) 3 ml INH RQ6 [facility] Last Admin: 06/13/18 07:55 Dose: 3 ml Aspirin (Aspirin Chewable) 81 mg PO DAILY [facility] Last Admin: 06/13/18 10:01 Dose: Not Given Carvedilol (Coreg) 3.125 mg PO BID [facility] Last Admin: 06/13/18 09:46 Dose: 3.125 mg Docusate Sodium (Colace) 100 mg PO DAILY [facility] Last Admin: 06/13/18 09:46 Dose: 100 mg Ferric Sodium Gluconate Complex (Ferrlecit) 125 mg IVPB DAILY [facility] Stop: 06/17/18 10:01 Last Admin: 06/13/18 09:47 Dose: 125 mg Furosemide (Lasix) 40 mg PO BID [facility] Last Admin: 06/13/18 09:46 Dose: 40 mg Vancomycin HCl 1.5 gm/ Sodium (Chloride) 500 mls @ 250 mls/hr IVPB Q24H [facility] Stop: 06/26/18 10:59 Last Admin: 06/13/18 09:45 Dose: 250 mls/hr Pantoprazole Sodium (Protonix Ec Tab) 40 mg PO DAILY [facility] Last Admin: 06/13/18 09:47 Dose: 40 mg Promethazine HCl/Dextromethorphan (Phenergan Dm Syrup) 10 ml PO TID PRN PRN Reason: Cough Rosuvastatin Calcium (Crestor) 5 mg PO HS [facility] Last Admin: 06/12/18 21:51 Dose: 5 mg Sacubitril/Valsartan (Entresto 24 Mg-26 Mg) 1 tab PO BID [facility] Last Admin: 06/13/18 09:47 Dose: 1 tab - Labs Labs: 06/13/18 06:42 06/12/18 06:41 PT 15.8 SECONDS (9.7-12.2) H 06/11/18 16:17 INR 1.4 06/11/18 16:17 Assessment and Plan (1) Pleural effusion Status: Acute (2) Anemia Status: Acute (3) COPD (chronic obstructive pulmonary disease) Status: Acute (4) Cirrhosis Status: Chronic
[2018-06-13 12:17] LABS: BASO % 0.7 % (0.0-2.0); EOS # 0.2 K/uL (0.0-0.7); EOS % 3.3 % (0.0-4.0); HEMOGLOBIN 7.8 g/dL (12.0-18.0); LYMPH # 0.9 K/uL (1.0-4.3); LYMPH % 14.6 % (20.0-40.0); MEAN CELL VOLUME 80.2 fL (80.0-94.0); MEAN CORPUSCULAR HEMOGLOBIN 24.6 pg (27.0-31.0); MEAN CORPUSCULAR HGB CONC 30.7 g/dL (33.0-37.0); MEAN PLATELET VOLUME 8.1 fL (7.2-11.7); MONO # 1.4 K/uL (0.0-0.8); MONO % 22.3 % (0.0-10.0); NEUT # 3.6 K/uL (1.8-7.0); NEUT % 59.1 % (50.0-75.0); NRBC % 0.5 % (0.0-2.0); PLATELET COUNT 180 K/uL (130-400); RBC 3.18 Mil/uL (4.40-5.90); RED CELL DISTRIBUTION WIDTH 19.6 % (11.5-14.5); WHITE BLOOD COUNT 6.1 K/uL (4.8-10.8)
[2018-06-13 12:46] LABS: TOTAL CELLS COUNTED 100
[2018-06-13 12:48] LABS: EOSINOPHIL 4 % (0-4); LYMPHOCYTE 15 % (20-40); MONOCYTE 22 % (0-10); NEUTROPHIL 59 % (50-75); NUCLEATED RED BLOOD CELL 1 % (0-0)
[2018-06-13 12:49] LABS: ANISOCYTOSIS MODERATE; HYPOCHROMIC MODERATE; PLATELET ESTIMATE NORMAL (NORMAL); TARGET CELLS MODERATE
--- NOTE | 2018-06-13 15:00 | CARD ---
APPROVED REPORT Date of service: 06/13/2018 EXAM: Two-dimensional and M-mode echocardiogram with Doppler and color Doppler. Other Information Quality : GoodRhythm : INDICATION Peripheral Edema Atrial Fibrillation Congestive Heart Failure COPD Surgery/Intervention Pacemaker: RISK FACTORS Hypertension Hyperlipidemia 2D DIMENSIONS IVSd1.4 (0.7-1.1cm)LVDd4.8 (3.9-5.9cm) PWd1.3 (0.7-1.1cm)LA [id number] (18-58mL) LVDs3.6 (2.5-4.0cm)FS (%) 24.9 % LVEF (%)40.1 (>50%) M-Mode DIMENSIONS Left Atrium (MM)5.86 (2.5-4.0cm)IVSd1.13 (0.7-1.1cm) Aortic Root3.76 (2.2-3.7cm)LVDd4.51 (4.0-5.6cm) Aortic Cusp Exc.2.33 (1.5-2.0cm)PWd1.31 (0.7-1.1cm) FS (%) 18 %LVDs3.69 (2.0-3.8cm) LVEF (%)38 (>50%) Mitral Valve E/A ratio0.0 TDI E/Lateral E'0.0E/Medial E'0.0 Tricuspid Valve TR Peak [id number] Peak [id number] LEFT VENTRICLE The left ventricle is normal size. There is mild concentric left ventricular hypertrophy. Left ventricle systolic function is moderately impaired. The Ejection Fraction is 35-40%. There is a flattened septum consistent with right ventricle volume and pressure overload.. LV filling pressure is increased No left ventricle thrombus noted on this study. There is no ventricular septal defect visualized. There is no left ventricular aneurysm. There is no mass noted in the left ventricle. RIGHT VENTRICLE The right ventricle is moderately dilated. There is normal right ventricular wall thickness. Systolic function is mildly to moderately reduced. There is a pacemaker lead in the right ventricle. ATRIA The left atrium is severely dilated. The right atrium is moderately dilated. The interatrial septum is intact with no evidence for an atrial septal defect. AORTIC VALVE The aortic valve is normal in structure and function. No aortic regurgitation is present. There is no aortic valvular stenosis. There is no aortic valvular vegetation. MITRAL VALVE The mitral valve is normal in structure and function. There is no evidence of mitral valve prolapse. There is no mitral valve stenosis. There is no mitral valve regurgitation noted. TRICUSPID VALVE The tricuspid valve is normal in structure and function. There is moderate tricuspid regurgitation. Right ventricular systolic pressure is estimated at 50-60 mmHg. There is moderate pulmonary hypertension. There is no tricuspid valve prolapse or vegetation. There is no tricuspid valve stenosis. PULMONIC VALVE The pulmonary valve is normal in structure and function. There is no pulmonic valvular regurgitation. There is no pulmonic valvular stenosis. GREAT VESSELS The aortic root is normal in size. The ascending aorta is normal in size. The pulmonary artery is normal. The IVC is dilated. The IVC collapses <50% with inspiration. PERICARDIAL EFFUSION The pericardium appears normal. There is no pleural effusion. <Conclusion> There is mild concentric left ventricular hypertrophy. Left ventricle systolic function is moderately impaired. The Ejection Fraction is 35-40%. There is a flattened septum consistent with right ventricle volume and pressure overload.. LV filling pressure is increased The right ventricle is moderately dilated. Systolic function is mildly to moderately reduced. The left atrium is severely dilated. The right atrium is moderately dilated. There is moderate tricuspid regurgitation. Right ventricular systolic pressure is estimated at 50-60 mmHg. There is moderate pulmonary hypertension.
[2018-06-13 17:43] VITALS: BP 107/70; PULSE 82; TEMP 98
--- NOTE | 2018-06-13 17:51 | CP.PCM.PN ---
Subjective - Date & Time of Evaluation Date of Evaluation: 06/13/18 Time of Evaluation: 17:51 - Subjective Subjective: alert, oriented, no acute sob or distress. Objective - Vital Signs/Intake and Output Vital Signs (last 24 hours): Temp Pulse Resp BP Pulse Ox 98.0 F 82 20 107/70 95 06/13/18 17:43 06/13/18 17:43 06/13/18 17:43 06/13/18 17:43 06/13/18 16:00 Intake and Output: 06/13/18 06/13/18 06:59 18:59 Intake Total 480 0 Balance 480 0 - Medications Medications: Current Medications Acetaminophen (Tylenol 325mg Tab) 650 mg PO Q6 PRN PRN Reason: Pain, Mild (1-3) Albuterol/Ipratropium (Duoneb 3 Mg/0.5 Mg (3 Ml) Ud) 3 ml INH RQ6 [facility] Last Admin: 06/13/18 13:10 Dose: 3 ml Aspirin (Aspirin Chewable) 81 mg PO DAILY [facility] Last Admin: 06/13/18 10:01 Dose: Not Given Carvedilol (Coreg) 3.125 mg PO BID [facility] Last Admin: 06/13/18 09:46 Dose: 3.125 mg Docusate Sodium (Colace) 100 mg PO DAILY [facility] Last Admin: 06/13/18 09:46 Dose: 100 mg Ferric Sodium Gluconate Complex (Ferrlecit) 125 mg IVPB DAILY [facility] Stop: 06/17/18 10:01 Last Admin: 06/13/18 09:47 Dose: 125 mg Furosemide (Lasix) 40 mg PO BID [facility] Last Admin: 06/13/18 09:46 Dose: 40 mg Vancomycin HCl 1.5 gm/ Sodium (Chloride) 500 mls @ 250 mls/hr IVPB Q24H [facility] Stop: 06/26/18 10:59 Last Admin: 06/13/18 09:45 Dose: 250 mls/hr Pantoprazole Sodium (Protonix Ec Tab) 40 mg PO DAILY [facility] Last Admin: 06/13/18 09:47 Dose: 40 mg Promethazine HCl/Dextromethorphan (Phenergan Dm Syrup) 10 ml PO TID PRN PRN Reason: Cough Rosuvastatin Calcium (Crestor) 5 mg PO HS [facility] Last Admin: 06/12/18 21:51 Dose: 5 mg Sacubitril/Valsartan (Entresto 24 Mg-26 Mg) 1 tab PO BID [facility] Last Admin: 06/13/18 09:47 Dose: 1 tab - Labs Labs: 06/13/18 12:00 06/12/18 06:41 PT 15.8 SECONDS (9.7-12.2) H 06/11/18 16:17 INR 1.4 06/11/18 16:17 Assessment and Plan - Assessment and Plan (Free Text) Assessment: 2ND UNIT OF PRBC tolerated well. Alert and oriented x3 denies acute pain or distress. Plan to discharge back to [facility] today.
--- NOTE | 2018-06-13 19:35 | CP.PCM.PN ---
Subjective - Date & Time of Evaluation Date of Evaluation: 06/13/18 - Subjective Subjective: patient evaluated today no vomiting no diarrhea no fever no nausea no SOB Objective - Vital Signs/Intake and Output Vital Signs (last 24 hours): Temp Pulse Resp BP Pulse Ox 98.0 F 82 20 107/70 95 06/13/18 17:43 06/13/18 17:43 06/13/18 17:43 06/13/18 18:23 06/13/18 16:00 Intake and Output: 06/13/18 06/14/18 18:59 06:59 Intake Total 0 Balance 0 - Medications Medications: Current Medications Acetaminophen (Tylenol 325mg Tab) 650 mg PO Q6 PRN PRN Reason: Pain, Mild (1-3) Albuterol/Ipratropium (Duoneb 3 Mg/0.5 Mg (3 Ml) Ud) 3 ml INH RQ6 [facility] Last Admin: 06/13/18 19:12 Dose: Not Given Aspirin (Aspirin Chewable) 81 mg PO DAILY [facility] Last Admin: 06/13/18 10:01 Dose: Not Given Carvedilol (Coreg) 3.125 mg PO BID [facility] Last Admin: 06/13/18 18:23 Dose: 3.125 mg Docusate Sodium (Colace) 100 mg PO DAILY [facility] Last Admin: 06/13/18 09:46 Dose: 100 mg Ferric Sodium Gluconate Complex (Ferrlecit) 125 mg IVPB DAILY [facility] Stop: 06/17/18 10:01 Last Admin: 06/13/18 09:47 Dose: 125 mg Furosemide (Lasix) 40 mg PO BID [facility] Last Admin: 06/13/18 18:23 Dose: 40 mg Vancomycin HCl 1.5 gm/ Sodium (Chloride) 500 mls @ 250 mls/hr IVPB Q24H [facility] Stop: 06/26/18 10:59 Last Admin: 06/13/18 09:45 Dose: 250 mls/hr Pantoprazole Sodium (Protonix Ec Tab) 40 mg PO DAILY [facility] Last Admin: 06/13/18 09:47 Dose: 40 mg Promethazine HCl/Dextromethorphan (Phenergan Dm Syrup) 10 ml PO TID PRN PRN Reason: Cough Rosuvastatin Calcium (Crestor) 5 mg PO HS [facility] Last Admin: 06/12/18 21:51 Dose: 5 mg Sacubitril/Valsartan (Entresto 24 Mg-26 Mg) 1 tab PO BID [facility] Last Admin: 06/13/18 18:23 Dose: 1 tab - Labs Labs: 06/13/18 12:00 06/12/18 06:41 PT 15.8 SECONDS (9.7-12.2) H 06/11/18 16:17 INR 1.4 06/11/18 16:17 - Constitutional Appears: Well - Head Exam Head Exam: ATRAUMATIC, NORMAL INSPECTION, NORMOCEPHALIC - Eye Exam Eye Exam: EOMI, Normal appearance, PERRL Pupil Exam: NORMAL ACCOMODATION, PERRL - ENT Exam ENT Exam: Mucous Membranes Moist, Normal Exam - Neck Exam Neck Exam: Full ROM, Normal Inspection. absent: Lymphadenopathy - Respiratory Exam Respiratory Exam: Decreased Breath Sounds - Cardiovascular Exam Cardiovascular Exam: REGULAR RHYTHM, +S1, +S2 - GI/Abdominal Exam GI & Abdominal Exam: Soft, Diminished Bowel Sounds - Rectal Exam Rectal Exam: Deferred Assessment and Plan - Assessment and Plan (Free Text) Plan: patient evaluated at bedside today medications reviewed labs and vitals reviewed aspirin chewable tablet colace coreg crestor dunoeb 3mg/0.5mg (3ml) ud entresto 24mg-26mg ferrlecit lasix phenegram dm syrup protonix ec tab tylenol 325mg tab vancomycin hcl 1.5 gm
--- NOTE | 2018-06-14 00:24 | CP.PCM.PN ---
Subjective - Date & Time of Evaluation Date of Evaluation: 06/13/18 Time of Evaluation: 12:00 - Subjective Subjective: Podiatry Progress Note- Dr. Montoya 68M with PMHx of DM, HTN, CHF seen and evaluated with attending Dr. Montoya at bedside for bilateral leg wounds-stable. Patient is seen resting comfortably in bed, in NAD, and AA0x3. Dressing clean dry and intact. Denies of pain at the moment. Reports sleeping okay, denies acute overnight events. Denies nausea, fever, shortness of breath, chest pains or chills Objective - Vital Signs/Intake and Output Vital Signs (last 24 hours): Temp Pulse Resp BP Pulse Ox 98.0 F 82 20 107/70 95 06/13/18 17:43 06/13/18 17:43 06/13/18 17:43 06/13/18 18:23 06/13/18 16:00 Intake and Output: 06/13/18 06/14/18 18:59 06:59 Intake Total 0 325 Balance 0 325 - Medications Medications: Current Medications Acetaminophen (Tylenol 325mg Tab) 650 mg PO Q6 PRN PRN Reason: Pain, Mild (1-3) Albuterol/Ipratropium (Duoneb 3 Mg/0.5 Mg (3 Ml) Ud) 3 ml INH RQ6 [facility] Last Admin: 06/13/18 19:12 Dose: Not Given Aspirin (Aspirin Chewable) 81 mg PO DAILY [facility] Last Admin: 06/13/18 10:01 Dose: Not Given Carvedilol (Coreg) 3.125 mg PO BID [facility] Last Admin: 06/13/18 18:23 Dose: 3.125 mg Docusate Sodium (Colace) 100 mg PO DAILY [facility] Last Admin: 06/13/18 09:46 Dose: 100 mg Ferric Sodium Gluconate Complex (Ferrlecit) 125 mg IVPB DAILY [facility] Stop: 06/17/18 10:01 Last Admin: 06/13/18 09:47 Dose: 125 mg Furosemide (Lasix) 40 mg PO BID [facility] Last Admin: 06/13/18 18:23 Dose: 40 mg Vancomycin HCl 1.5 gm/ Sodium (Chloride) 500 mls @ 250 mls/hr IVPB Q24H [facility] Stop: 06/26/18 10:59 Last Admin: 03/29/19 09:45 Dose: 250 mls/hr Pantoprazole Sodium (Protonix Ec Tab) 40 mg PO DAILY [facility] Last Admin: 06/13/18 09:47 Dose: 40 mg Promethazine HCl/Dextromethorphan (Phenergan Dm Syrup) 10 ml PO TID PRN PRN Reason: Cough Rosuvastatin Calcium (Crestor) 5 mg PO HS [facility] Last Admin: 06/13/18 21:52 Dose: 5 mg Sacubitril/Valsartan (Entresto 24 Mg-26 Mg) 1 tab PO BID [facility] Last Admin: 06/13/18 18:23 Dose: 1 tab - Labs Labs: 06/13/18 12:00 06/12/18 06:41 PT 15.8 SECONDS (9.7-12.2) H 06/11/18 16:17 INR 1.4 06/11/18 16:17 - Constitutional Appears: Well, Non-toxic, Toxic - Extremities Exam Extremities Exam: absent: Calf Tenderness Additional comments: LE focused exam Vasc: DP/PT pulses faintly palpable 1/4. Skin temperature warm to warm from proximal to distal WNL. CFT < 3 seconds to all digits. Mild edema noted diffusely Neuro: Epicritic and protective sensation grossly diminished Derm: 2 wounds, each 1 cm x 1 cm x 0.1 cm ulceration noted to medial aspect of left leg with mixed fibrogranular wound base. No active drainage noted. No malodor, purulence, tracking, tunneling or undermining appreciated. No other clinical signs of infection noted. Right leg reveals very small wound, not deep or wide, with no evidence of bleeding or drainage noted after dressing taken down MSK: No pain on palpation to ulceration site. No gross deformities noted - Neurological Exam Neurological Exam: Alert, Awake, Oriented x3 - Psychiatric Exam Psychiatric exam: Normal Affect, Normal Mood Assessment and Plan - Assessment and Plan (Free Text) Assessment: 68M with b/l leg wounds, stable, non infected Plan: Patient seen and evaluated with attending Dr. Montoya Discussed with Dr. Montoya VSS, absent leukocytosis Dressings reapplied with telRADHA corbett after cleansing with saline solution Stable from podiatry standpoint for discharge back to [facility] where Dr. Montoya will follow Will follow while in house
[2018-06-14] MEDS: Albuterol-Ipratrop 3 mg / 0.5 (3 ml) UD INH SCH (01:26)
--- NOTE | 2018-06-14 08:42 | CP.PCM.CON ---
History of Present Illness - History of Present Illness History of Present Illness: 68 year old male presents to the ED sent by [place] for abnormal labs. As per [place], hemoglobin was 6.6. Patient was recently discharged from this institution. Otherwise, denies any physical complaints. Patient has chronic abdominal distention, chronic leg wounds, and shortness of breath but he reports these symptoms are normal. Chief Complaint (Nursing): Abnormal Labs History Per: Patient, Other ([facility]) History/Exam Limitations: no limitations Onset/Duration Of Symptoms: Hrs Current Symptoms Are (Timing): Still Present Severity: Mild Reports Recently: Hospitalized Additional History Per: Prison, Prior Records Past Medical History Reviewed: Historical Data, Nursing Documentation, Vital Signs Vital Signs: Last Vital Signs Temp 97.6 F 06/11/18 15:48 Pulse 83 06/11/18 15:48 Resp 20 06/11/18 15:48 BP 111/61 06/11/18 15:48 Pulse Ox 91 L 06/11/18 15:48 - Medical History PMH: Arthritis, Atrial Fibrillation, CHF, COPD, Diabetes, HTN, Hypercholesterolemia, Pancreatitis (eval for possible pancreatitis) Surgical History: Appendectomy, Pacemaker - [facility] Procedures ASSISTANCE WITH RESPIRATORY VENTILATION, 24-96 HRS, CPAP (01/21/17) DRAINAGE OF LEFT PLEURAL CAVITY, PERCUTANEOUS APPROACH (02/02/17) DRAINAGE OF PERITONEAL CAVITY, PERCUTANEOUS APPROACH (03/05/17) DRAINAGE OF PERITONEAL CAVITY, PERCUTANEOUS APPROACH, DIAGN (05/22/18) DRAINAGE OF RIGHT PLEURAL CAVITY, PERCUTANEOUS APPROACH (03/05/17) EXCISION OF STOMACH, ENDO, DIAGN (11/03/16) EXTRACTION OF RIGHT FOOT SKIN, EXTERNAL APPROACH (08/29/17) FLUOROSCOPY OF SUP VENA CAVA USING L OSM CONTRAST, GUIDANCE (03/05/17) INSERTION OF INFUSION DEV INTO SUP VENA CAVA, PERC APPROACH (03/05/17) INSPECTION OF LOWER INTESTINAL TRACT, ENDO (11/03/16) TRANSFUSE NONAUT RED BLOOD CELLS IN PERIPH VEIN, PERC (01/21/17) ULTRASONOGRAPHY OF SUPERIOR VENA CAVA, GUIDANCE (03/05/17) Family History: States: No Known Family Hx - Social History Hx Tobacco Use: No Hx Alcohol Use: No Hx Substance Use: No - Immunization History Hx Tetanus Toxoid Vaccination: No Hx Influenza Vaccination: Yes Hx Pneumococcal Vaccination: Yes Review Of Systems Except As Marked, All Systems Reviewed And Found Negative. Constitutional: Positive for: Other (low hemoglobin ). Negative for: Fever, Chills Cardiovascular: Negative for: Chest Pain Respiratory: Positive for: Shortness of Breath (chronic) Gastrointestinal: Positive for: Abdominal Pain. Negative for: Melena Musculoskeletal: Negative for: Back Pain Skin: Positive for: Other (leg ulcers) Neurological: Negative for: Headache, Dizziness Physical Exam - Physical Exam Appears: Non-toxic, No Acute Distress Skin: Warm, Dry Head: Normacephalic Eye(s): bilateral: PERRL, EOMI Nose: Normal Oral Mucosa: Moist Neck: Supple Chest: Symmetrical Cardiovascular: Rhythm Regular Respiratory: Normal Breath Sounds, No Rales, No Rhonchi, No Wheezing Gastrointestinal/Abdominal: Soft, No Tenderness, Distention (chronic distended abdomen ) Extremity: No Calf Tenderness, Swelling (B/L chronic leg swelling with erythema and wounds) Neurological/Psych: Oriented x3, Normal Speech Gait: Steady Past Patient History - Infectious Disease Hx of Infectious Diseases: None - Past Medical History & Family History Past Medical History?: Yes - Past Social History Smoking Status: Never Smoked - CARDIAC Hx Atrial Fibrillation: Yes Hx Congestive Heart Failure: Yes Hx Hypercholesterolemia: Yes Hx Hypertension: Yes Hx Pacemaker: Yes - PULMONARY Hx Chronic Obstructive Pulmonary Disease (COPD): Yes - NEUROLOGICAL Hx Neurological Disorder: No - HEENT Hx HEENT Problems: No - RENAL Hx Chronic Kidney Disease: No - ENDOCRINE/METABOLIC Hx Endocrine Disorders: Yes Hx Diabetes Mellitus Type 2: Yes - HEMATOLOGICAL/ONCOLOGICAL Hx Blood Disorders: No - INTEGUMENTARY Hx Dermatological Problems: Yes (lower leg ulcers) Other/Comment: MRSA of leg - MUSCULOSKELETAL/RHEUMATOLOGICAL Hx Arthritis: Yes - GASTROINTESTINAL Hx Pancreatitis: Yes (eval for possible pancreatitis) - GENITOURINARY/GYNECOLOGICAL Hx Genitourinary Disorders: No - PSYCHIATRIC Hx Substance Use: No - SURGICAL HISTORY Hx Appendectomy: Yes - ANESTHESIA Hx Anesthesia: Yes Hx Anesthesia Reactions: No Hx Malignant Hyperthermia: No Meds Allergies/Adverse Reactions: Allergies Allergy/AdvReac Type Severity Reaction Status Date / Time No Known Allergies Allergy Verified 06/11/18 15:47 Results - Vital Signs Recent Vital Signs: Last Vital Signs Temp 98.0 F 06/13/18 17:43 Pulse 82 06/13/18 17:43 Resp 20 06/13/18 17:43 BP 107/70 06/13/18 18:23 Pulse Ox 95 06/13/18 16:00 - Labs Result Diagrams: 06/13/18 12:00 06/12/18 06:41 Labs: Laboratory Results - last 24 hr 06/11/18 06/13/18 06/13/18 16:17 06:42 11:08 WBC RBC Hgb Hct MCV MCH MCHC RDW Plt Count MPV Neut % (Auto) Lymph % (Auto) [place] % (Auto) Eos % (Auto) Baso % (Auto) Neut # (Auto) Lymph # (Auto) [place] # (Auto) Eos # (Auto) Baso # (Auto) Neutrophils % (Manual) 54 Lymphocytes % (Manual) 17 L Monocytes % (Manual) 25 H Eosinophils % (Manual) 3 Basophils % (Manual) 1 Nucleated RBC % 2 H Platelet Estimate Normal Hypochromasia (manual) Moderate Poikilocytosis (manual Slight Anisocytosis (manual) Moderate Target Cells Moderate Ovalocytes Slight POC Glucose (mg/dL) 211 H Blood Type A POSITIVE Antibody Screen Negative 06/13/18 06/13/18 12:00 16:10 WBC 6.1 RBC 3.18 L Hgb 7.8 L Hct 25.5 L MCV 80.2 MCH 24.6 L MCHC 30.7 L RDW 19.6 H Plt Count 180 MPV 8.1 Neut % (Auto) 59.1 Lymph % (Auto) 14.6 L [place] % (Auto) 22.3 H Eos % (Auto) 3.3 Baso % (Auto) 0.7 Neut # (Auto) 3.6 Lymph # (Auto) 0.9 L [place] # (Auto) 1.4 H Eos # (Auto) 0.2 Baso # (Auto) 0.0 Neutrophils % (Manual) 59 Lymphocytes % (Manual) 15 L Monocytes % (Manual) 22 H Eosinophils % (Manual) 4 Basophils % (Manual) Nucleated RBC % 1 H Platelet Estimate Normal Hypochromasia (manual) Moderate Poikilocytosis (manual Anisocytosis (manual) Moderate Target Cells Moderate Ovalocytes POC Glucose (mg/dL) 176 H Blood Type Antibody Screen Assessment & Plan - Assessment and Plan (Free Text) Assessment: (1) NYHA class 3 acute on chronic systolic heart failure Assessment & Plan: improved volume status. continue current medications. outpatient follow up Status: Chronic (2) Ascites Assessment & Plan: hepatic vs heart failure. improving Status: Acute (3) CAD (coronary artery disease) Assessment & Plan: no current angina. Status: Acute (4) Hypertension Assessment & Plan: blood pressure is controlled Status: Chronic
--- NOTE | 2018-06-15 20:20 | CP.PCM.PN ---
Subjective - Date & Time of Evaluation Date of Evaluation: 06/13/18 Time of Evaluation: 13:00 - Subjective Subjective: No complaints. Objective - Vital Signs/Intake and Output Vital Signs (last 24 hours): Temp Pulse Resp BP Pulse Ox 98.0 F 82 20 107/70 95 06/13/18 17:43 06/13/18 17:43 06/13/18 17:43 06/13/18 18:23 06/13/18 16:00 - Labs Labs: 06/13/18 12:00 06/12/18 06:41 PT 15.8 SECONDS (9.7-12.2) H 06/11/18 16:17 INR 1.4 06/11/18 16:17 - Head Exam Head Exam: ATRAUMATIC - Eye Exam Eye Exam: Normal appearance - ENT Exam ENT Exam: Mucous Membranes Dry - Respiratory Exam Respiratory Exam: NORMAL BREATHING PATTERN - Cardiovascular Exam Cardiovascular Exam: +S1, +S2 - GI/Abdominal Exam GI & Abdominal Exam: Normal Bowel Sounds Assessment and Plan (1) Anemia Assessment & Plan: iron deficiency anemia transfusion support IV iron f/u fobt Status: Acute
--- NOTE | 2018-06-15 21:33 | CARD ---
APPROVED REPORT Date of service: 06/11/2018 EKG Measurement Heart [id number] <Conclusion> Ventricular-paced rhythm Abnormal ECG
== END 2018-06-13 23:30 ==
LOC: C.ER 15:43 → C.9E 16:34 → C.3T 17:34
PROVIDERS: ADMIT Internal Medicine Nephrology; ATTEND Internal Medicine Nephrology
DX: D50.9 Iron deficiency anemia, unspecified (principal); E11.9 Type 2 diabetes mellitus without complications; E78.00 Pure hypercholesterolemia, unspecified; I11.0 Hypertensive heart disease with heart failure; I25.10 Atherosclerotic heart disease of native coronary artery without angina pectoris; I48.91 Unspecified atrial fibrillation; I50.23 Acute on chronic systolic (congestive) heart failure; J44.9 Chronic obstructive pulmonary disease, unspecified; K74.60 Unspecified cirrhosis of liver; R18.8 Other ascites; K74.69 Other cirrhosis of liver; Z95.0 Presence of cardiac pacemaker; Z95.810 Presence of automatic (implantable) cardiac defibrillator; F10.10 Alcohol abuse, uncomplicated
CPT/HCPCS: 36415; 36430; 71045; 80053; 81001; 82607; 82728; 82746; 82948; 83880; 85025; 85044; 85610; 86850; 86900; 86920; 93005; 93306; 94640; 96365; 96366; 96367; 99283; G0378; J2916; J7040; P9051

== ENCOUNTER 2018-06-23 15:53 | Inpatient (IN) | payer MEDICARE, BC ==
[2018-06-23 15:53] VITALS: BMI 31.8
--- NOTE | 2018-06-23 16:17 | C.PDOC ---
History Of Present Illness 68 year old male with pmhx of CHF, liver cirrhosis, DM, HTN, sent in by [place] for evaluation of abnormal labs; patient requests transfusion. Patient reports bleeding from right LE ulcers during wound care changes several times over the past few days, with last episode 2 days ago. Patient was recently admitted for anemia(likely 2/2 liver cirrhosis) requiring multiple transfusions, ascites and pleural effusions requiring drainage, and B/L LE ulcers(MRSA+). Patient reports recent weakness, persistent SOB, cough, and worsening LE/scrotal/penile edema, abdominal distention; denies chest pain, palpitations, dizziness. Time Seen by Provider: 06/23/18 16:03 Chief Complaint (Nursing): Abnormal Labs History Per: Patient History/Exam Limitations: no limitations Reports Recently: Hospitalized Recent travel outside of the [place]: No Past Medical History Reviewed: Historical Data, Nursing Documentation, Vital Signs Vital Signs: Last Vital Signs Temp 97.6 F 06/23/18 15:55 Pulse 87 06/23/18 15:55 Resp 17 06/23/18 15:55 BP 113/71 06/23/18 15:55 Pulse Ox 97 06/23/18 15:55 - Medical History PMH: Arthritis, Atrial Fibrillation, CHF, COPD, Diabetes, HTN, Hypercholesterolemia, Pancreatitis (eval for possible pancreatitis) Denies: Chronic Kidney Disease Surgical History: Appendectomy, Pacemaker - [facility] ASSISTANCE WITH RESPIRATORY VENTILATION, 24-96 HRS, CPAP (01/21/17) DRAINAGE OF LEFT PLEURAL CAVITY, PERCUTANEOUS APPROACH (02/02/17) DRAINAGE OF PERITONEAL CAVITY, PERCUTANEOUS APPROACH (03/05/17) DRAINAGE OF PERITONEAL CAVITY, PERCUTANEOUS APPROACH, DIAGN (05/22/18) DRAINAGE OF RIGHT PLEURAL CAVITY, PERCUTANEOUS APPROACH (06/06/18) EXCISION OF STOMACH, ENDO, DIAGN (11/03/16) EXTRACTION OF RIGHT FOOT SKIN, EXTERNAL APPROACH (08/29/17) FLUOROSCOPY OF SUP VENA CAVA USING L OSM CONTRAST, GUIDANCE (03/05/17) INSERTION OF INFUSION DEV INTO SUP VENA CAVA, PERC APPROACH (03/05/17) INSPECTION OF LOWER INTESTINAL TRACT, ENDO (11/03/16) TRANSFUSE NONAUT RED BLOOD CELLS IN PERIPH VEIN, PERC (01/21/17) ULTRASONOGRAPHY OF SUPERIOR VENA CAVA, GUIDANCE (03/05/17) Family History: States: Unknown Family Hx - Social History Hx Tobacco Use: No Hx Alcohol Use: Yes (former, quit 6+ yrs ago) Hx Substance Use: No - Immunization History Hx Tetanus Toxoid Vaccination: No Hx Influenza Vaccination: Yes Hx Pneumococcal Vaccination: Yes Review Of Systems Constitutional: Positive for: Weakness Cardiovascular: Negative for: Chest Pain, Palpitations, Light Headedness Respiratory: Positive for: Cough, Shortness of Breath Gastrointestinal: Positive for: Other (abdominal distension). Negative for: Nausea, Hematochezia Genitourinary: Positive for: Other (scrotal/penile swelling). Negative for: Dysuria Skin: Negative for: Bruising Physical Exam - Physical Exam Appears: Non-toxic, No Acute Distress Skin: Normal Color, Warm, Dry, No Pale, No Ecchymosis, Other (B/L LE wrapped, clean/dry/intact) Head: Atraumatic, Normacephalic Eye(s): bilateral: Normal Inspection, EOMI Oral Mucosa: Moist Cardiovascular: Rhythm Regular Respiratory: No Accessory Muscle Use, Rales, Rhonchi Gastrointestinal/Abdominal: Distention, Ascites Male Genital: Scrotal Swelling, Other (penile swelling/inversion) Extremity: No Tenderness, Pedal Edema (B/L LE edema knees down), Other (Right PICC; B/L distal LEs wrapped, clead/dry/intact) Extremity: Bilateral: Normal Color And Temperature Neurological/Psych: Oriented x3 ED Course And Treatment - Laboratory Results Result Diagrams: 06/23/18 16:39 06/23/18 16:39 Lab Interpretation: Abnormal ECG: Viewed By Tx ECG Rhythm: V Paced Rate From EC O2 Sat by Pulse Oximetry: 97 - Radiology CXR: Viewed By Tx CXR Interpretation: Yes: Cardiomegaly Medical Decision Making Medical Decision Makin68 year old male w/ pmhx of CHF, liver cirrhosis, HTN, DM admitted for evaluation of abnormal labs CBC CMP PT/INR/PTT Type and Screen CXR EKG PRBC x2 Disposition Discussed With : Matilde Mahajan Doctor Will See Patient In The: ED Counseled Patient/Family Regarding: Studies Performed - Disposition Disposition: HOSPITALIZED Disposition Time: 18:30 Condition: FAIR Forms: [facility] (Telugu) - Clinical Impression Clinical Impression: Anemia, Ascites
[2018-06-23 16:48] LABS: BASO % 0.5 % (0.0-2.0); EOS # 0.2 K/uL (0.0-0.7); EOS % 3.5 % (0.0-4.0); LYMPH # 0.8 K/uL (1.0-4.3); LYMPH % 11.7 % (20.0-40.0); MEAN CORPUSCULAR HEMOGLOBIN 25.6 pg (27.0-31.0); MEAN CORPUSCULAR HGB CONC 30.9 g/dL (33.0-37.0); MEAN PLATELET VOLUME 8.3 fL (7.2-11.7); MONO % 15.5 % (0.0-10.0); NEUT # 4.5 K/uL (1.8-7.0); NEUT % 68.8 % (50.0-75.0); NRBC % 0.3 % (0.0-2.0); RBC 2.74 Mil/uL (4.40-5.90); RED CELL DISTRIBUTION WIDTH 21.9 % (11.5-14.5); WHITE BLOOD COUNT 6.5 K/uL (4.8-10.8)
[2018-06-23 16:51] LABS: INR 1.3; PROTHROMBIN TIME 13.9 SECONDS (9.7-12.2)
[2018-06-23 17:03] LABS: ALB/GLOB RATIO 1.1 (1.0-2.1); ALBUMIN 3.8 g/dL (3.5-5.0); ALT/SGPT < 6 U/L (21-72); AST/SGOT 44 U/L (17-59); BLOOD UREA NITROGEN 25 mg/dL (9-20); CALCIUM 7.9 mg/dl (8.6-10.4); GFR NON-AFRICAN AMERICAN 38
--- NOTE | 2018-06-23 19:12 | CP.PCM.HP ---
Past Patient History - Infectious Disease Hx of Infectious Diseases: None - Past Medical History & Family History Past Medical History?: Yes - Past Social History Smoking Status: Never Smoked - CARDIAC Hx Atrial Fibrillation: Yes Hx Congestive Heart Failure: Yes Hx Hypercholesterolemia: Yes Hx Hypertension: Yes Hx Pacemaker: Yes - PULMONARY Hx Chronic Obstructive Pulmonary Disease (COPD): Yes - NEUROLOGICAL Hx Neurological Disorder: No - HEENT Hx HEENT Problems: No - RENAL Hx Chronic Kidney Disease: No - ENDOCRINE/METABOLIC Hx Endocrine Disorders: Yes Hx Diabetes Mellitus Type 2: Yes - HEMATOLOGICAL/ONCOLOGICAL Hx Blood Disorders: No - INTEGUMENTARY Hx Dermatological Problems: Yes (lower leg ulcers) Other/Comment: MRSA of leg - MUSCULOSKELETAL/RHEUMATOLOGICAL Hx Arthritis: Yes - GASTROINTESTINAL Hx Pancreatitis: Yes (eval for possible pancreatitis) - GENITOURINARY/GYNECOLOGICAL Hx Genitourinary Disorders: No - PSYCHIATRIC Hx Substance Use: No - SURGICAL HISTORY Hx Appendectomy: Yes - ANESTHESIA Hx Anesthesia: Yes Hx Anesthesia Reactions: No Hx Malignant Hyperthermia: No Meds Allergies/Adverse Reactions: Allergies Allergy/AdvReac Type Severity Reaction Status Date / Time No Known Allergies Allergy Verified 06/23/18 16:18 Physical Exam - Constitutional Appears: Well - Head Exam Head Exam: ATRAUMATIC, NORMAL INSPECTION, NORMOCEPHALIC - Eye Exam Eye Exam: EOMI, Normal appearance, PERRL Pupil Exam: NORMAL ACCOMODATION, PERRL - ENT Exam ENT Exam: Mucous Membranes Moist, Normal Exam - Neck Exam Neck exam: Positive for: Normal Inspection - Respiratory Exam Respiratory Exam: Decreased Breath Sounds - Cardiovascular Exam Cardiovascular Exam: REGULAR RHYTHM, +S1, +S2 - GI/Abdominal Exam GI & Abdominal Exam: Diminished Bowel Sounds, Soft - Rectal Exam Rectal Exam: Deferred - Neurological Exam Neurological exam: Oriented x3 Results - Vital Signs Recent Vital Signs: Last Vital Signs Temp 97.6 F 06/23/18 15:55 Pulse 82 06/23/18 18:24 Resp 20 06/23/18 18:24 BP 121/73 06/23/18 18:24 Pulse Ox 100 06/23/18 18:24 - Labs Result Diagrams: 06/23/18 16:39 06/23/18 16:39 Labs: Laboratory Results - last 24 hr 06/23/18 06/23/18 06/23/18 16:39 16:39 16:39 WBC 6.5 RBC 2.74 L Hgb 7.0 L Hct 22.7 L MCV 83.0 D MCH 25.6 L MCHC 30.9 L RDW 21.9 H Plt Count 128 L D MPV 8.3 Neut % (Auto) 68.8 Lymph % (Auto) 11.7 L [place] % (Auto) 15.5 H Eos % (Auto) 3.5 Baso % (Auto) 0.5 Neut # (Auto) 4.5 Lymph # (Auto) 0.8 L [place] # (Auto) 1.0 H Eos # (Auto) 0.2 Baso # (Auto) 0.0 Differential Comment PT 13.9 H INR 1.3 APTT 41 H Sodium 136 Potassium 4.9 Chloride 98 Carbon Dioxide 32 H Anion Gap 11 BUN 25 H Creatinine 1.8 H Est GFR ( Amer) 46 Est GFR (Non-Af Amer) 38 Random Glucose 111 H Calcium 7.9 L Phosphorus 3.5 Magnesium 2.0 Total Bilirubin 0.6 AST 44 ALT < 6 L Alkaline Phosphatase 105 Total Protein 7.3 Albumin 3.8 Globulin 3.5 Albumin/Globulin Ratio 1.1 Blood Type Antibody Screen 06/23/18 17:31 WBC RBC Hgb Hct MCV MCH MCHC RDW Plt Count MPV Neut % (Auto) Lymph % (Auto) [place] % (Auto) Eos % (Auto) Baso % (Auto) Neut # (Auto) Lymph # (Auto) [place] # (Auto) Eos # (Auto) Baso # (Auto) Differential Comment PT INR APTT Sodium Potassium Chloride Carbon Dioxide Anion Gap BUN Creatinine Est GFR ( Amer) Est GFR (Non-Af Amer) Random Glucose Calcium Phosphorus Magnesium Total Bilirubin AST ALT Alkaline Phosphatase Total Protein Albumin Globulin Albumin/Globulin Ratio Blood Type A POSITIVE Antibody Screen Negative
[2018-06-23] MEDS ORDERED: Alum-Mag Hydrox-Simethicone Susp (30 mL) PO PRN (21:38)
[2018-06-23] MEDS ORDERED: Vancomycin 1 g Inj IVPB SCH (21:45)
[2018-06-23] MEDS: CEFTAROLINE IVPB SCH (22:26)
[2018-06-23] MEDS: DEXTROSE 5% IVPB SCH (22:26)
[2018-06-23] MEDS: WATER IVPB SCH (22:26)
[2018-06-24] MEDS: Pantoprazole 40 mg EC Tab PO SCH (09:14)
[2018-06-24] MEDS: Ferric Sodium Gluconat Complex 62.5 mg/5 ml Vial IVPB SCH (09:15)
[2018-06-24] MEDS: Sacubitril/Valsartan 24-26mg Tab PO SCH (09:15)
[2018-06-24] MEDS: DEXTROSE 5% IVPB SCH ×2 (09:26→22:09)
[2018-06-24] MEDS: CEFTAROLINE IVPB SCH ×2 (09:26→22:09)
[2018-06-24] MEDS: WATER IVPB SCH ×2 (09:26→22:09)
--- NOTE | 2018-06-24 13:45 | CP.PCM.CON ---
History of Present Illness - History of Present Illness History of Present Illness: Podiatry Consult Note for Dr. Montoya 68 M PMH CHF, liver cirrhosis, DM, HTN seen at bedside for b/l lower extremity ulcerations. Patient states that during dressing changes at the shelter that he was staying at his ulcers were bleeding a significant amount. Denies any new onset erythema, malodor, drainage, purulence or other signs of infection. Patient is AAO x 3 and NAD. Denies any new pedal complaints. Denies any recent N/V/F/C/CP/SOB/D Review of Systems - Review of Systems All systems: reviewed and no additional remarkable complaints except Review of Systems: as per HPI Past Patient History - Infectious Disease Hx of Infectious Diseases: None - Past Medical History & Family History Past Medical History?: Yes - Past Social History Smoking Status: Never Smoked - CARDIAC Hx Atrial Fibrillation: Yes Hx Congestive Heart Failure: Yes Hx Hypercholesterolemia: Yes Hx Hypertension: Yes Hx Pacemaker: Yes - PULMONARY Hx Chronic Obstructive Pulmonary Disease (COPD): Yes - NEUROLOGICAL Hx Neurological Disorder: No - HEENT Hx HEENT Problems: No - RENAL Hx Chronic Kidney Disease: No - ENDOCRINE/METABOLIC Hx Endocrine Disorders: Yes Hx Diabetes Mellitus Type 2: Yes - HEMATOLOGICAL/ONCOLOGICAL Hx Blood Disorders: No - INTEGUMENTARY Hx Dermatological Problems: Yes (lower leg ulcers) Other/Comment: MRSA of leg - MUSCULOSKELETAL/RHEUMATOLOGICAL Hx Arthritis: Yes Hx Falls: No - GASTROINTESTINAL Hx Pancreatitis: Yes - GENITOURINARY/GYNECOLOGICAL Hx Genitourinary Disorders: No - PSYCHIATRIC Hx Substance Use: No - SURGICAL HISTORY Hx Appendectomy: Yes - ANESTHESIA Hx Anesthesia: Yes Hx Anesthesia Reactions: No Hx Malignant Hyperthermia: No Meds Allergies/Adverse Reactions: Allergies Allergy/AdvReac Type Severity Reaction Status Date / Time No Known Allergies Allergy Verified 06/23/18 16:18 - Medications Medications: Current Medications Acetaminophen (Tylenol 325mg Tab) 325 mg PO Q6H PRN PRN Reason: Pain, Mild (1-3) Al Hydrox/Mg Hydrox/Simethicone (Maalox Plus 30 Ml) 30 ml PO Q4H PRN PRN Reason: Heartburn Aspirin (Aspirin Chewable) 81 mg PO DAILY [facility] Last Admin: 06/24/18 09:15 Dose: 81 mg Carvedilol (Coreg) 3.125 mg PO BID [facility] Last Admin: 06/24/18 09:14 Dose: 3.125 mg Docusate Sodium (Colace) 100 mg PO DAILY [facility] Last Admin: 06/24/18 09:14 Dose: 100 mg Ferric Sodium Gluconate Complex (Ferrlecit) 125 mg IVPB DAILY [facility] Stop: 07/02/18 10:01 Last Admin: 06/24/18 09:15 Dose: 125 mg Ceftaroline Fosamil 400 mg/ (Dextrose) 100 mls @ 100 mls/hr IVPB Q12H [facility]; Protocol Last Admin: 06/24/18 09:26 Dose: 100 mls/hr Pantoprazole Sodium (Protonix Ec Tab) 40 mg PO DAILY [facility] Last Admin: 06/24/18 09:14 Dose: 40 mg Rosuvastatin Calcium (Crestor) 5 mg PO HS [facility] Last Admin: 06/23/18 22:10 Dose: 5 mg Sacubitril/Valsartan (Entresto 24 Mg-26 Mg) 1 tab PO DAILY [facility] Last Admin: 06/24/18 09:15 Dose: 1 tab Physical Exam - Constitutional Appears: Well, Non-toxic, No Acute Distress - Extremities Exam Additional comments: LE focused exam Vasc: DP/PT pulses faintly palpable 1/4. Skin temperature warm to warm from proximal to distal WNL. CFT < 3 seconds to all digits. Minimal edema noted diffusely Neuro: Epicritic and protective sensation grossly diminished Derm: 2 wounds, each 0.5 cm x 0.5 cm x 0.1 cm ulceration noted to medial aspect of left leg with mixed fibrogranular wound base. No active drainage noted. No malodor, purulence, tracking, tunneling or undermining appreciated. No other clinical signs of infection noted. Right leg reveals very small anterior leg wound measuring 0.2 x 0.2 x 0.1 cm with granular base and no evidence of infection or bleeding appreciated MSK: No pain on palpation to ulceration site. No gross deformities noted - Neurological Exam Neurological exam: Alert, Oriented x3 - Psychiatric Exam Psychiatric exam: Normal Affect, Normal Mood Results - Vital Signs Recent Vital Signs: Last Vital Signs Temp 97.7 F 06/24/18 08:00 Pulse 75 06/24/18 08:00 Resp 20 06/24/18 08:00 BP 137/70 06/24/18 08:00 Pulse Ox 95 06/24/18 08:00 - Labs Result Diagrams: 06/23/18 16:39 06/23/18 16:39 Labs: Laboratory Results - last 24 hr 06/23/18 06/23/18 06/23/18 16:39 16:39 16:39 WBC 6.5 RBC 2.74 L Hgb 7.0 L Hct 22.7 L MCV 83.0 D MCH 25.6 L MCHC 30.9 L RDW 21.9 H Plt Count 128 L D MPV 8.3 Neut % (Auto) 68.8 Lymph % (Auto) 11.7 L [place] % (Auto) 15.5 H Eos % (Auto) 3.5 Baso % (Auto) 0.5 Neut # (Auto) 4.5 Lymph # (Auto) 0.8 L [place] # (Auto) 1.0 H Eos # (Auto) 0.2 Baso # (Auto) 0.0 Differential Comment PT 13.9 H INR 1.3 APTT 41 H Sodium 136 Potassium 4.9 Chloride 98 Carbon Dioxide 32 H Anion Gap 11 BUN 25 H Creatinine 1.8 H Est GFR ( Amer) 46 Est GFR (Non-Af Amer) 38 POC Glucose (mg/dL) Random Glucose 111 H Calcium 7.9 L Phosphorus 3.5 Magnesium 2.0 Total Bilirubin 0.6 AST 44 ALT < 6 L Alkaline Phosphatase 105 Total Protein 7.3 Albumin 3.8 Globulin 3.5 Albumin/Globulin Ratio 1.1 Blood Type Antibody Screen 06/23/18 06/24/18 06/24/18 17:31 02:12 06:17 WBC RBC Hgb Hct MCV MCH MCHC RDW Plt Count MPV Neut % (Auto) Lymph % (Auto) [place] % (Auto) Eos % (Auto) Baso % (Auto) Neut # (Auto) Lymph # (Auto) [place] # (Auto) Eos # (Auto) Baso # (Auto) Differential Comment PT INR APTT Sodium Potassium Chloride Carbon Dioxide Anion Gap BUN Creatinine Est GFR ( Amer) Est GFR (Non-Af Amer) POC Glucose (mg/dL) 170 H 84 Random Glucose Calcium Phosphorus Magnesium Total Bilirubin AST ALT Alkaline Phosphatase Total Protein Albumin Globulin Albumin/Globulin Ratio Blood Type A POSITIVE Antibody Screen Negative 06/24/18 11:47 WBC RBC Hgb Hct MCV MCH MCHC RDW Plt Count MPV Neut % (Auto) Lymph % (Auto) [place] % (Auto) Eos % (Auto) Baso % (Auto) Neut # (Auto) Lymph # (Auto) [place] # (Auto) Eos # (Auto) Baso # (Auto) Differential Comment PT INR APTT Sodium Potassium Chloride Carbon Dioxide Anion Gap BUN Creatinine Est GFR ( Amer) Est GFR (Non-Af Amer) POC Glucose (mg/dL) 167 H Random Glucose Calcium Phosphorus Magnesium Total Bilirubin AST ALT Alkaline Phosphatase Total Protein Albumin Globulin Albumin/Globulin Ratio Blood Type Antibody Screen Assessment & Plan - Assessment and Plan (Free Text) Assessment: 68M seen for b/l stable leg ulcerations Plan: Patient seen and evaluated with Dr. Montoya Afebrile, absent leukocytosis Continue abx per ID Wounds dressed with xeroform, DSD No plan for surgical intervention at this time Podiatry will continue to follow while patient in house - Date & Time Date: 06/24/18 Time: 13:49
--- NOTE | 2018-06-24 14:13 | CP.PCM.CON ---
History of Present Illness - History of Present Illness History of Present Illness: 68 year old male with a history of COPD, CHF s/p ICD, HTN, DM, decompensated liver cirrhosis (former alcohol), chronic LE wounds, pleural effusion, presenting [place] the [place] with severe anemia. The patient was found to have a low hgb at the [facility] and sent to the hospital. In the ER he was noted to have a hgb of 7 and he is currently undergoing PRBC transfusion. He denies abnormal bleeding and bruising. His prior work up was consistent with iron deficiency anemia. Past medical history: COPD, CHF, s/p ICD, HTN, DM, liver cirrhosis. Past surgical history: ICD placement Family history: Denies hematologic and oncologic problems Social history: Former alcohol abuse Allergies: NKA Review of systems: All remaining review of systems including HEENT, cardiovascular, respiratory, gastrointestinal, genitourinary, musculoskeletal, dermatologic, neurologic, and psychiatric are negative unless mentioned in the HPI. Past Patient History - Infectious Disease Hx of Infectious Diseases: None - Past Medical History & Family History Past Medical History?: Yes - Past Social History Smoking Status: Never Smoked - CARDIAC Hx Atrial Fibrillation: Yes Hx Congestive Heart Failure: Yes Hx Hypercholesterolemia: Yes Hx Hypertension: Yes Hx Pacemaker: Yes - PULMONARY Hx Chronic Obstructive Pulmonary Disease (COPD): Yes - NEUROLOGICAL Hx Neurological Disorder: No - HEENT Hx HEENT Problems: No - RENAL Hx Chronic Kidney Disease: No - ENDOCRINE/METABOLIC Hx Endocrine Disorders: Yes Hx Diabetes Mellitus Type 2: Yes - HEMATOLOGICAL/ONCOLOGICAL Hx Blood Disorders: No - INTEGUMENTARY Hx Dermatological Problems: Yes (lower leg ulcers) Other/Comment: MRSA of leg - MUSCULOSKELETAL/RHEUMATOLOGICAL Hx Arthritis: Yes Hx Falls: No - GASTROINTESTINAL Hx Pancreatitis: Yes - GENITOURINARY/GYNECOLOGICAL Hx Genitourinary Disorders: No - PSYCHIATRIC Hx Substance Use: No - SURGICAL HISTORY Hx Appendectomy: Yes - ANESTHESIA Hx Anesthesia: Yes Hx Anesthesia Reactions: No Hx Malignant Hyperthermia: No Meds Allergies/Adverse Reactions: Allergies Allergy/AdvReac Type Severity Reaction Status Date / Time No Known Allergies Allergy Verified 06/23/18 16:18 - Medications Medications: Current Medications Acetaminophen (Tylenol 325mg Tab) 325 mg PO Q6H PRN PRN Reason: Pain, Mild (1-3) Al Hydrox/Mg Hydrox/Simethicone (Maalox Plus 30 Ml) 30 ml PO Q4H PRN PRN Reason: Heartburn Aspirin (Aspirin Chewable) 81 mg PO DAILY [facility] Last Admin: 06/24/18 09:15 Dose: 81 mg Carvedilol (Coreg) 3.125 mg PO BID [facility] Last Admin: 06/24/18 09:14 Dose: 3.125 mg Docusate Sodium (Colace) 100 mg PO DAILY [facility] Last Admin: 06/24/18 09:14 Dose: 100 mg Ferric Sodium Gluconate Complex (Ferrlecit) 125 mg IVPB DAILY [facility] Stop: 07/02/18 10:01 Last Admin: 06/24/18 09:15 Dose: 125 mg Ceftaroline Fosamil 400 mg/ (Dextrose) 100 mls @ 100 mls/hr IVPB Q12H [facility]; Protocol Last Admin: 06/24/18 09:26 Dose: 100 mls/hr Pantoprazole Sodium (Protonix Ec Tab) 40 mg PO DAILY [facility] Last Admin: 06/24/18 09:14 Dose: 40 mg Rosuvastatin Calcium (Crestor) 5 mg PO HS [facility] Last Admin: 06/23/18 22:10 Dose: 5 mg Sacubitril/Valsartan (Entresto 24 Mg-26 Mg) 1 tab PO DAILY [facility] Last Admin: 06/24/18 09:15 Dose: 1 tab Physical Exam - Head Exam Head Exam: ATRAUMATIC - Eye Exam Eye Exam: Normal appearance - ENT Exam ENT Exam: Mucous Membranes Dry - Respiratory Exam Respiratory Exam: NORMAL BREATHING PATTERN - Cardiovascular Exam Cardiovascular Exam: +S1, +S2 - GI/Abdominal Exam GI & Abdominal Exam: Normal Bowel Sounds Results - Vital Signs Recent Vital Signs: Last Vital Signs Temp 97.7 F 06/24/18 08:00 Pulse 75 06/24/18 08:00 Resp 20 06/24/18 08:00 BP 137/70 06/24/18 08:00 Pulse Ox 95 06/24/18 08:00 - Labs Result Diagrams: 06/23/18 16:39 06/23/18 16:39 Labs: Laboratory Results - last 24 hr 06/23/18 06/23/18 06/23/18 16:39 16:39 16:39 WBC 6.5 RBC 2.74 L Hgb 7.0 L Hct 22.7 L MCV 83.0 D MCH 25.6 L MCHC 30.9 L RDW 21.9 H Plt Count 128 L D MPV 8.3 Neut % (Auto) 68.8 Lymph % (Auto) 11.7 L [place] % (Auto) 15.5 H Eos % (Auto) 3.5 Baso % (Auto) 0.5 Neut # (Auto) 4.5 Lymph # (Auto) 0.8 L [place] # (Auto) 1.0 H Eos # (Auto) 0.2 Baso # (Auto) 0.0 Differential Comment PT 13.9 H INR 1.3 APTT 41 H Sodium 136 Potassium 4.9 Chloride 98 Carbon Dioxide 32 H Anion Gap 11 BUN 25 H Creatinine 1.8 H Est GFR ( Amer) 46 Est GFR (Non-Af Amer) 38 POC Glucose (mg/dL) Random Glucose 111 H Calcium 7.9 L Phosphorus 3.5 Magnesium 2.0 Total Bilirubin 0.6 AST 44 ALT < 6 L Alkaline Phosphatase 105 Total Protein 7.3 Albumin 3.8 Globulin 3.5 Albumin/Globulin Ratio 1.1 Blood Type Antibody Screen 06/23/18 06/24/18 06/24/18 17:31 02:12 06:17 WBC RBC Hgb Hct MCV MCH MCHC RDW Plt Count MPV Neut % (Auto) Lymph % (Auto) [place] % (Auto) Eos % (Auto) Baso % (Auto) Neut # (Auto) Lymph # (Auto) [place] # (Auto) Eos # (Auto) Baso # (Auto) Differential Comment PT INR APTT Sodium Potassium Chloride Carbon Dioxide Anion Gap BUN Creatinine Est GFR ( Amer) Est GFR (Non-Af Amer) POC Glucose (mg/dL) 170 H 84 Random Glucose Calcium Phosphorus Magnesium Total Bilirubin AST ALT Alkaline Phosphatase Total Protein Albumin Globulin Albumin/Globulin Ratio Blood Type A POSITIVE Antibody Screen Negative 06/24/18 11:47 WBC RBC Hgb Hct MCV MCH MCHC RDW Plt Count MPV Neut % (Auto) Lymph % (Auto) [place] % (Auto) Eos % (Auto) Baso % (Auto) Neut # (Auto) Lymph # (Auto) [place] # (Auto) Eos # (Auto) Baso # (Auto) Differential Comment PT INR APTT Sodium Potassium Chloride Carbon Dioxide Anion Gap BUN Creatinine Est GFR ( Amer) Est GFR (Non-Af Amer) POC Glucose (mg/dL) 167 H Random Glucose Calcium Phosphorus Magnesium Total Bilirubin AST ALT Alkaline Phosphatase Total Protein Albumin Globulin Albumin/Globulin Ratio Blood Type Antibody Screen Assessment & Plan (1) Anemia Assessment and Plan: iron deficiency anemia and chronic disease from lower extremity wounds discussed with Dr. Mahajan to hold aspirin likely chronic GI blood loss depleting iron stores - ?pHTN related bleeding transfusion support on IV iron Thank you for this interesting consult. Status: Acute
[2018-06-24 14:21] LABS: BASO # 0.1 K/uL (0.0-0.2); BASO % 0.9 % (0.0-2.0); EOS # 0.2 K/uL (0.0-0.7); EOS % 2.7 % (0.0-4.0); HEMOGLOBIN 7.8 g/dL (12.0-18.0); LYMPH # 0.7 K/uL (1.0-4.3); LYMPH % 11.9 % (20.0-40.0); MEAN CELL VOLUME 84.2 fL (80.0-94.0); MEAN CORPUSCULAR HEMOGLOBIN 26.7 pg (27.0-31.0); MEAN CORPUSCULAR HGB CONC 31.7 g/dL (33.0-37.0); MEAN PLATELET VOLUME 8.3 fL (7.2-11.7); MONO # 0.9 K/uL (0.0-0.8); NEUT # 4.3 K/uL (1.8-7.0); NEUT % 70.5 % (50.0-75.0); NRBC % 0.3 % (0.0-2.0); RBC 2.94 Mil/uL (4.40-5.90); WHITE BLOOD COUNT 6.2 K/uL (4.8-10.8)
[2018-06-24 14:36] LABS: ALBUMIN 3.4 g/dL (3.5-5.0)
--- NOTE | 2018-06-24 15:09 | CP.PCM.CON ---
History of Present Illness - History of Present Illness History of Present Illness: dictated Past Patient History - Infectious Disease Hx of Infectious Diseases: None - Past Medical History & Family History Past Medical History?: Yes - Past Social History Smoking Status: Never Smoked - CARDIAC Hx Atrial Fibrillation: Yes Hx Congestive Heart Failure: Yes Hx Hypercholesterolemia: Yes Hx Hypertension: Yes Hx Pacemaker: Yes - PULMONARY Hx Chronic Obstructive Pulmonary Disease (COPD): Yes - NEUROLOGICAL Hx Neurological Disorder: No - HEENT Hx HEENT Problems: No - RENAL Hx Chronic Kidney Disease: No - ENDOCRINE/METABOLIC Hx Endocrine Disorders: Yes Hx Diabetes Mellitus Type 2: Yes - HEMATOLOGICAL/ONCOLOGICAL Hx Blood Disorders: No - INTEGUMENTARY Hx Dermatological Problems: Yes (lower leg ulcers) Other/Comment: MRSA of leg - MUSCULOSKELETAL/RHEUMATOLOGICAL Hx Arthritis: Yes Hx Falls: No - GASTROINTESTINAL Hx Pancreatitis: Yes - GENITOURINARY/GYNECOLOGICAL Hx Genitourinary Disorders: No - PSYCHIATRIC Hx Substance Use: No - SURGICAL HISTORY Hx Appendectomy: Yes - ANESTHESIA Hx Anesthesia: Yes Hx Anesthesia Reactions: No Hx Malignant Hyperthermia: No Meds Allergies/Adverse Reactions: Allergies Allergy/AdvReac Type Severity Reaction Status Date / Time No Known Allergies Allergy Verified 06/23/18 16:18 - Medications Medications: Current Medications Acetaminophen (Tylenol 325mg Tab) 325 mg PO Q6H PRN PRN Reason: Pain, Mild (1-3) Al Hydrox/Mg Hydrox/Simethicone (Maalox Plus 30 Ml) 30 ml PO Q4H PRN PRN Reason: Heartburn Aspirin (Aspirin Chewable) 81 mg PO DAILY [facility] Last Admin: 06/24/18 09:15 Dose: 81 mg Carvedilol (Coreg) 3.125 mg PO BID [facility] Last Admin: 06/24/18 09:14 Dose: 3.125 mg Docusate Sodium (Colace) 100 mg PO DAILY [facility] Last Admin: 06/24/18 09:14 Dose: 100 mg Ferric Sodium Gluconate Complex (Ferrlecit) 125 mg IVPB DAILY [facility] Stop: 07/02/18 10:01 Last Admin: 06/24/18 09:15 Dose: 125 mg Ceftaroline Fosamil 400 mg/ (Dextrose) 100 mls @ 100 mls/hr IVPB Q12H [facility]; Protocol Last Admin: 06/24/18 09:26 Dose: 100 mls/hr Pantoprazole Sodium (Protonix Ec Tab) 40 mg PO DAILY [facility] Last Admin: 06/24/18 09:14 Dose: 40 mg Rosuvastatin Calcium (Crestor) 5 mg PO HS [facility] Last Admin: 06/23/18 22:10 Dose: 5 mg Sacubitril/Valsartan (Entresto 24 Mg-26 Mg) 1 tab PO DAILY [facility] Last Admin: 06/24/18 09:15 Dose: 1 tab Results - Vital Signs Recent Vital Signs: Last Vital Signs Temp 97.7 F 06/24/18 08:00 Pulse 75 06/24/18 08:00 Resp 20 06/24/18 08:00 BP 137/70 06/24/18 08:00 Pulse Ox 95 06/24/18 08:00 - Labs Result Diagrams: 06/24/18 14:13 06/24/18 14:13 Labs: Laboratory Results - last 24 hr 06/23/18 06/23/18 06/23/18 16:39 16:39 16:39 WBC 6.5 RBC 2.74 L Hgb 7.0 L Hct 22.7 L MCV 83.0 D MCH 25.6 L MCHC 30.9 L RDW 21.9 H Plt Count 128 L D MPV 8.3 Neut % (Auto) 68.8 Lymph % (Auto) 11.7 L [place] % (Auto) 15.5 H Eos % (Auto) 3.5 Baso % (Auto) 0.5 Neut # (Auto) 4.5 Lymph # (Auto) 0.8 L [place] # (Auto) 1.0 H Eos # (Auto) 0.2 Baso # (Auto) 0.0 Differential Comment PT 13.9 H INR 1.3 APTT 41 H Sodium 136 Potassium 4.9 Chloride 98 Carbon Dioxide 32 H Anion Gap 11 BUN 25 H Creatinine 1.8 H Est GFR ( Amer) 46 Est GFR (Non-Af Amer) 38 POC Glucose (mg/dL) Random Glucose 111 H Calcium 7.9 L Phosphorus 3.5 Magnesium 2.0 Total Bilirubin 0.6 AST 44 ALT < 6 L Alkaline Phosphatase 105 Total Protein 7.3 Albumin 3.8 Globulin 3.5 Albumin/Globulin Ratio 1.1 Blood Type Antibody Screen 06/23/18 06/24/18 06/24/18 17:31 02:12 06:17 WBC RBC Hgb Hct MCV MCH MCHC RDW Plt Count MPV Neut % (Auto) Lymph % (Auto) [place] % (Auto) Eos % (Auto) Baso % (Auto) Neut # (Auto) Lymph # (Auto) [place] # (Auto) Eos # (Auto) Baso # (Auto) Differential Comment PT INR APTT Sodium Potassium Chloride Carbon Dioxide Anion Gap BUN Creatinine Est GFR ( Amer) Est GFR (Non-Af Amer) POC Glucose (mg/dL) 170 H 84 Random Glucose Calcium Phosphorus Magnesium Total Bilirubin AST ALT Alkaline Phosphatase Total Protein Albumin Globulin Albumin/Globulin Ratio Blood Type A POSITIVE Antibody Screen Negative 06/24/18 06/24/18 06/24/18 11:47 14:13 14:13 WBC 6.2 RBC 2.94 L Hgb 7.8 L Hct 24.7 L MCV 84.2 MCH 26.7 L MCHC 31.7 L RDW 21.0 H Plt Count 124 L MPV 8.3 Neut % (Auto) 70.5 Lymph % (Auto) 11.9 L [place] % (Auto) 14.0 H Eos % (Auto) 2.7 Baso % (Auto) 0.9 Neut # (Auto) 4.3 Lymph # (Auto) 0.7 L [place] # (Auto) 0.9 H Eos # (Auto) 0.2 Baso # (Auto) 0.1 Differential Comment PT INR APTT Sodium 136 Potassium 4.5 Chloride 97 L Carbon Dioxide 35 H Anion Gap 9 L BUN 26 H Creatinine 1.9 H Est GFR ( Amer) 43 Est GFR (Non-Af Amer) 36 POC Glucose (mg/dL) 167 H Random Glucose 125 H Calcium 8.0 L Phosphorus Magnesium 2.0 Total Bilirubin 0.8 AST 32 ALT 10 L D Alkaline Phosphatase 103 Total Protein 7.0 Albumin 3.4 L Globulin 3.6 Albumin/Globulin Ratio 1.0 Blood Type Antibody Screen
--- NOTE | 2018-06-24 15:49 | RAD ---
HISTORY: SOB COMPARISON: Chest x-ray performed 06/11/18 TECHNIQUE: Chest, one view. FINDINGS: Right-sided PICC extends to the expected location of the SVC. Examination limited by habitus and hypoinflation. LUNGS: Bilateral pleural effusions and associated consolidations. Small fluid along the right fissure. No definite pneumothorax. CARDIOVASCULAR: Cardiomegaly. Left-sided AICD. OSSEOUS STRUCTURES: No acute osseous abnormality identified. VISUALIZED UPPER ABDOMEN: Unremarkable. OTHER FINDINGS: None. IMPRESSION: Small bilateral pleural effusions and associated consolidations. Small fluid noted tracking along the right fissure. Right-sided PICC. Cardiomegaly. Left-sided AICD.
--- NOTE | 2018-06-24 16:32 | CP.PCM.PN ---
Subjective - Date & Time of Evaluation Date of Evaluation: 06/24/18 Time of Evaluation: 08:25 - Subjective Subjective: PGY-[address] Mahajan's service: Pt seen and examined at bedside. Nursing reports no acute events overnight. Patient denies chest pain, SOB, blood in stool/urine, hemoptysis. Objective - Vital Signs/Intake and Output Vital Signs (last 24 hours): Temp Pulse Resp BP Pulse Ox 97.7 F 79 20 137/70 95 06/24/18 08:00 06/24/18 12:34 06/24/18 08:00 06/24/18 08:00 06/24/18 08:00 Intake and Output: 06/24/18 06/24/18 06:59 18:59 Intake Total 325 550 Balance 325 550 - Medications Medications: Current Medications Acetaminophen (Tylenol 325mg Tab) 325 mg PO Q6H PRN PRN Reason: Pain, Mild (1-3) Al Hydrox/Mg Hydrox/Simethicone (Maalox Plus 30 Ml) 30 ml PO Q4H PRN PRN Reason: Heartburn Aspirin (Aspirin Chewable) 81 mg PO DAILY [facility] Last Admin: 06/24/18 09:15 Dose: 81 mg Carvedilol (Coreg) 3.125 mg PO BID [facility] Last Admin: 06/24/18 09:14 Dose: 3.125 mg Docusate Sodium (Colace) 100 mg PO DAILY [facility] Last Admin: 06/24/18 09:14 Dose: 100 mg Ferric Sodium Gluconate Complex (Ferrlecit) 125 mg IVPB DAILY [facility] Stop: 07/02/18 10:01 Last Admin: 06/24/18 09:15 Dose: 125 mg Ceftaroline Fosamil 400 mg/ (Dextrose) 100 mls @ 100 mls/hr IVPB Q12H [facility]; Protocol Last Admin: 06/24/18 09:26 Dose: 100 mls/hr Pantoprazole Sodium (Protonix Ec Tab) 40 mg PO DAILY [facility] Last Admin: 06/24/18 09:14 Dose: 40 mg Rosuvastatin Calcium (Crestor) 5 mg PO HS [facility] Last Admin: 06/23/18 22:10 Dose: 5 mg Sacubitril/Valsartan (Entresto 24 Mg-26 Mg) 1 tab PO DAILY [facility] Last Admin: 06/24/18 09:15 Dose: 1 tab - Labs Labs: 06/24/18 14:13 06/24/18 14:13 PT 13.9 SECONDS (9.7-12.2) H 06/23/18 16:39 INR 1.3 06/23/18 16:39 APTT 41 SECONDS (21-34) H 06/23/18 16:39 - Constitutional Appears: Non-toxic, No Acute Distress, Agitated - Head Exam Head Exam: ATRAUMATIC, NORMAL INSPECTION - Eye Exam Eye Exam: EOMI Pupil Exam: PERRL - ENT Exam ENT Exam: Mucous Membranes Moist - Respiratory Exam Respiratory Exam: Clear to Ausculation Bilateral, NORMAL BREATHING PATTERN. absent: Rales, Rhonchi, Wheezes - Cardiovascular Exam Cardiovascular Exam: REGULAR RHYTHM, +S1, +S2 - GI/Abdominal Exam GI & Abdominal Exam: Distended, Normal Bowel Sounds. absent: Guarding, Tenderness - Rectal Exam Rectal Exam: Deferred Additional comments: Pt refused rectal exam - Exam Exam: Scrotal Swelling, Bladder Distension - Extremities Exam Extremities Exam: absent: Normal Inspection Additional comments: Bilateral leg wounds, wrapped with fresh bandages - Back Exam Back Exam: absent: CVA tenderness (L), CVA tenderness (R) - Neurological Exam Neurological Exam: Alert, Awake, Oriented x3 - Psychiatric Exam Psychiatric exam: Agitated, Normal Affect - Skin Skin Exam: Normal Color, Warm Assessment and Plan - Assessment and Plan (Free Text) Plan: Anemia, Iron deficiency Admit to med/surg Etiology: Possible chronic GI blood loss per Dr. Villavicencio Hgb 7.8 today s/p 2 units PRBCs -7.0 on admission INR 1.3, PT 13.9, PTT [address] Villavicencio, Hem/onc consult - likely chronic GI blood loss Dr. Garza, GI consult, help appreciated - f/u hepatitis panel, HIV, cancer markers, stool occult - f/u reccs HOLD ASA Chronic GI bleed F/u stool occult x3 (pt refused rectal) Dr. Garza, GI consult, help appreciated - f/u hepatitis panel, HIV, cancer markers, stool occult - Pt may eat as no obvious GI bleeding CHF exacerbation Recent ECHO (06/13/18): EF 35-40%, LV systolic fxn moderately impaired CXR (06/24/18) Measure wt daily, head of bed 30 degrees, [address] Rouse, Cardio interior design consultant -Transfuse to keep Hgb above 9 -f/u BNP Entresto 24/26mg PO Daily Lasix 60mg IV once Lower extremity Wounds Dr. Montoya, Podiatry - No plan for surgical intervention - wounds dressed; continue antibiotics Dr. Guillen, Infectious Disease Ceftaroline 400mg IV Q12H (start 06/23; Day 2) - f/u dictated report HELENE Cr 1.9; above baseline of 1.3 Dr. Archer, Nephrology interior design consultant - increase dose of lasix for further diuresis - f/u urine studies, Vit D Urine Retention; Scrotal Swelling Mccall catheter insertion - f/u retention; if persistent will need uro consult HTN Coreg 3.125 mg PO BID Entresto 24 DM A1c: 6.6 on 12/20/17 f/u repeat A1c Pt denies Metformin as opdx PPX HOLD VTE Protonix 40mg PO Daily SCDs Disposition: Hgb only with moderate rise despite 2 units PRBCs. No obvious GI bleed. Hold off further transfusion on 06/24 - pt needs more aggressive diuresis first. GI w/u to commense tomorrow. Appreciate interior design consultant reccs Mitch Ferrari PGY-[address] Mahajan
--- NOTE | 2018-06-24 16:55 | CP.PCM.CON ---
History of Present Illness - History of Present Illness History of Present Illness: PT WITH SOB, COUGH, AND SCROTAL EDEMA X 2 WEEKS. PT ALSO CO DELLA AND URINARY RETENTION. Past Patient History - Infectious Disease Hx of Infectious Diseases: None - Past Medical History & Family History Past Medical History?: Yes - Past Social History Smoking Status: Never Smoked - CARDIAC Hx Atrial Fibrillation: Yes Hx Congestive Heart Failure: Yes Hx Hypercholesterolemia: Yes Hx Hypertension: Yes Hx Pacemaker: Yes - PULMONARY Hx Chronic Obstructive Pulmonary Disease (COPD): Yes - NEUROLOGICAL Hx Neurological Disorder: No - HEENT Hx HEENT Problems: No - RENAL Hx Chronic Kidney Disease: No - ENDOCRINE/METABOLIC Hx Endocrine Disorders: Yes Hx Diabetes Mellitus Type 2: Yes - HEMATOLOGICAL/ONCOLOGICAL Hx Blood Disorders: No - INTEGUMENTARY Hx Dermatological Problems: Yes (lower leg ulcers) Other/Comment: MRSA of leg - MUSCULOSKELETAL/RHEUMATOLOGICAL Hx Arthritis: Yes Hx Falls: No - GASTROINTESTINAL Hx Pancreatitis: Yes - GENITOURINARY/GYNECOLOGICAL Hx Genitourinary Disorders: No - PSYCHIATRIC Hx Substance Use: No - SURGICAL HISTORY Hx Appendectomy: Yes - ANESTHESIA Hx Anesthesia: Yes Hx Anesthesia Reactions: No Hx Malignant Hyperthermia: No Meds Allergies/Adverse Reactions: Allergies Allergy/AdvReac Type Severity Reaction Status Date / Time No Known Allergies Allergy Verified 06/23/18 16:18 - Medications Medications: Current Medications Acetaminophen (Tylenol 325mg Tab) 325 mg PO Q6H PRN PRN Reason: Pain, Mild (1-3) Al Hydrox/Mg Hydrox/Simethicone (Maalox Plus 30 Ml) 30 ml PO Q4H PRN PRN Reason: Heartburn Aspirin (Aspirin Chewable) 81 mg PO DAILY [facility] Last Admin: 06/24/18 09:15 Dose: 81 mg Carvedilol (Coreg) 3.125 mg PO BID [facility] Last Admin: 06/24/18 09:14 Dose: 3.125 mg Docusate Sodium (Colace) 100 mg PO DAILY [facility] Last Admin: 06/24/18 09:14 Dose: 100 mg Ferric Sodium Gluconate Complex (Ferrlecit) 125 mg IVPB DAILY [facility] Stop: 07/02/18 10:01 Last Admin: 06/24/18 09:15 Dose: 125 mg Furosemide (Lasix) 60 mg IVP ONCE ONE Stop: 06/24/18 16:51 Ceftaroline Fosamil 400 mg/ (Dextrose) 100 mls @ 100 mls/hr IVPB Q12H [facility]; Protocol Last Admin: 06/24/18 09:26 Dose: 100 mls/hr Pantoprazole Sodium (Protonix Ec Tab) 40 mg PO DAILY [facility] Last Admin: 06/24/18 09:14 Dose: 40 mg Pantoprazole Sodium (Protonix Inj) 40 mg IVP DAILY [facility] Rosuvastatin Calcium (Crestor) 5 mg PO HS [facility] Last Admin: 06/23/18 22:10 Dose: 5 mg Sacubitril/Valsartan (Entresto 24 Mg-26 Mg) 1 tab PO DAILY [facility] Last Admin: 06/24/18 09:15 Dose: 1 tab Results - Vital Signs Recent Vital Signs: Last Vital Signs Temp 97.7 F 06/24/18 15:00 Pulse 77 06/24/18 15:00 Resp 18 06/24/18 15:00 BP 106/63 06/24/18 15:00 Pulse Ox 95 06/24/18 15:00 - Labs Result Diagrams: 06/24/18 14:13 06/24/18 14:13 Labs: Laboratory Results - last 24 hr 06/23/18 06/23/18 06/23/18 16:39 16:39 17:31 WBC 6.5 RBC 2.74 L Hgb 7.0 L Hct 22.7 L MCV 83.0 D MCH 25.6 L MCHC 30.9 L RDW 21.9 H Plt Count 128 L D MPV 8.3 Neut % (Auto) 68.8 Lymph % (Auto) 11.7 L [place] % (Auto) 15.5 H Eos % (Auto) 3.5 Baso % (Auto) 0.5 Neut # (Auto) 4.5 Lymph # (Auto) 0.8 L [place] # (Auto) 1.0 H Eos # (Auto) 0.2 Baso # (Auto) 0.0 Differential Comment Sodium 136 Potassium 4.9 Chloride 98 Carbon Dioxide 32 H Anion Gap 11 BUN 25 H Creatinine 1.8 H Est GFR ( Amer) 46 Est GFR (Non-Af Amer) 38 POC Glucose (mg/dL) Random Glucose 111 H Calcium 7.9 L Phosphorus 3.5 Magnesium 2.0 Total Bilirubin 0.6 AST 44 ALT < 6 L Alkaline Phosphatase 105 Total Protein 7.3 Albumin 3.8 Globulin 3.5 Albumin/Globulin Ratio 1.1 Blood Type A POSITIVE Antibody Screen Negative 06/24/18 06/24/18 06/24/18 02:12 06:17 11:47 WBC RBC Hgb Hct MCV MCH MCHC RDW Plt Count MPV Neut % (Auto) Lymph % (Auto) [place] % (Auto) Eos % (Auto) Baso % (Auto) Neut # (Auto) Lymph # (Auto) [place] # (Auto) Eos # (Auto) Baso # (Auto) Differential Comment Sodium Potassium Chloride Carbon Dioxide Anion Gap BUN Creatinine Est GFR ( Amer) Est GFR (Non-Af Amer) POC Glucose (mg/dL) 170 H 84 167 H Random Glucose Calcium Phosphorus Magnesium Total Bilirubin AST ALT Alkaline Phosphatase Total Protein Albumin Globulin Albumin/Globulin Ratio Blood Type Antibody Screen 06/24/18 06/24/18 06/24/18 14:13 14:13 16:15 WBC 6.2 RBC 2.94 L Hgb 7.8 L Hct 24.7 L MCV 84.2 MCH 26.7 L MCHC 31.7 L RDW 21.0 H Plt Count 124 L MPV 8.3 Neut % (Auto) 70.5 Lymph % (Auto) 11.9 L [place] % (Auto) 14.0 H Eos % (Auto) 2.7 Baso % (Auto) 0.9 Neut # (Auto) 4.3 Lymph # (Auto) 0.7 L [place] # (Auto) 0.9 H Eos # (Auto) 0.2 Baso # (Auto) 0.1 Differential Comment Sodium 136 Potassium 4.5 Chloride 97 L Carbon Dioxide 35 H Anion Gap 9 L BUN 26 H Creatinine 1.9 H Est GFR ( Amer) 43 Est GFR (Non-Af Amer) 36 POC Glucose (mg/dL) 107 Random Glucose 125 H Calcium 8.0 L Phosphorus Magnesium 2.0 Total Bilirubin 0.8 AST 32 ALT 10 L D Alkaline Phosphatase 103 Total Protein 7.0 Albumin 3.4 L Globulin 3.6 Albumin/Globulin Ratio 1.0 Blood Type Antibody Screen Assessment & Plan - Assessment and Plan (Free Text) Plan: INCREASING CR, SCROTAL EDEMA AND URINARY RETENTION - WOULD RECOMMEND UROLOGY CO NSULT. SKAGGS CATHETER. GIVE LASIX 60 X 1. TRANSFUSE TO KEEP HB ABOVE 9.
[2018-06-24 19:37] LABS: SQUAMOUS EPITHIAL 1 /hpf (0-5); URINE BACTERIA RARE (<OCC); URINE BILIRUBIN NEGATIVE (NEGATIVE); URINE BLOOD NEGATIVE (NEGATIVE); URINE CLARITY Clear (Clear); URINE COLOR Yellow (YELLOW); URINE GLUCOSE (UA) NORMAL (Normal); URINE LEUKOCYTE ESTERASE 1+ Leu/uL (Negative); URINE PROTEIN NEGATIVE (NEGATIVE)
[2018-06-24 19:42] LABS: CREATININE, RANDOM URINE 55.8 mg/dL
--- NOTE | 2018-06-25 05:44 | CON ---
DATE: 06/24/2018 NEPHROLOGY CONSULTATION HISTORY OF PRESENT ILLNESS: The patient is a 68-year-old male with a past medical history of liver cirrhosis; CHF with severe systolic dysfunction, status post AICD placement; COPD; hypertension; diabetes; recurrent pleural effusion and abdominal ascites; transferred from skilled nursing to [facility] ED due to severe anemia. Nephrology was consulted for acute renal failure. The patient had an admission last month with MRSA in bilateral lower leg wounds, was on IV vancomycin 1.5 g daily in skilled nursing. Last reported trough level done yesterday was 27. The patient otherwise reports intermittent worsening of dyspnea; reports worsening leg edema lately; states abdominal girth is not increased from baseline; does report decreased urination lately and feels that he cannot completely evacuate his bladder. The patient also cannot lie flat on his back due to dyspnea. He otherwise denies any worsening of his cough. Appetite has been fair. No nausea, vomiting or diarrhea. Denies any fevers or chills. PAST MEDICAL HISTORY: As above. SOCIAL HISTORY: Previous alcohol abuse, not in about 10 years. FAMILY HISTORY: No liver disease. REVIEW OF SYSTEMS: CONSTITUTIONAL: As per HPI. HEENT: Denies any sore throat or runny nose. CARDIOVASCULAR: Denies any chest pain or palpitations. RESPIRATORY: As per HPI. GASTROINTESTINAL: As per HPI. GENITOURINARY: No dysuria. MUSCULOSKELETAL: Gets bilateral knee pains intermittently. No swelling. NEUROLOGIC: Gets intermittent numbness in his feet, intermittent dizziness on standing. PHYSICAL EXAMINATION: VITAL SIGNS: This evening, blood pressure 106/63, heart rate 77, respirations 18, temperature 97.7, O2 sat 95% on O2 via nasal cannula. GENERAL: No distress. Conversing coherently in full sentences. HEENT: Moist mucous membranes. Nonicteric. RESPIRATORY: Lungs are clear to auscultation bilaterally. No rales. No rhonchi. No wheezes. CARDIOVASCULAR: Heart sounds S1 and S2 present with mild systolic murmur. No gallops. No rubs. GASTROINTESTINAL: Abdomen is distended, otherwise soft and nontender. GENITOURINARY: No definite bladder distention. EXTREMITIES: Markedly edematous, edema extending to upper thighs and abdominal wall and back, anasarca. SKIN: Warm. No cyanosis of distal extremities. NEUROLOGIC: No resting tremor. PSYCHIATRIC: Normal mood. Normal affect. LABORATORY DATA: CBC this afternoon: WBC 6.2, hemoglobin 7.8, hematocrit 24.7, platelets 124. Chemistry panel: Sodium 136, potassium 4.5, chloride 97, bicarb 35, BUN 26, creatinine 1.9, glucose 125, calcium 8, magnesium 2, AST 32, ALT 10, albumin 3.4. IMAGING DATA: Chest x-ray from yesterday showing fluid in right fissure, some increased pulmonary vascular congestion. ASSESSMENT AND PLAN: 1. Acute renal failure. Etiology not entirely clear; likely has cardiorenal component in the setting of severe systolic dysfunction and recent echocardiogram indicative of right ventricular pressure overload. The patient also was on vancomycin with elevated trough level per outpatient record; received 60 mg of intravenous Lasix approximately 1 hour ago with only minimal response; otherwise stable electrolyte status; metabolic alkalosis noted but unclear if this is compensatory or primary disorder. a. We will recommend to challenge with high-dose intravenous Lasix with a goal of achieving negative 1 to 1.5 L daily fluid balance in an attempt to offload right ventricle and decrease venous congestion. b. We will obtain blood gas to assess for hypercapnia. c. Obtain random vancomycin level. Avoid nephrotoxic agents. Awaiting urinalysis. 2. Cardiomyopathy with severe systolic dysfunction and evidence of right-sided heart failure as well with elevated pulmonary hypertension and right ventricular pressure overload on recent echocardiogram. Need to offload right ventricle as above. If the patient does not respond to diuretics, we will recommend to start inotropic support. We will recommend for now as this can drop blood pressure significantly long-term therapy. 3. Anemia due to iron deficiency. Currently on intravenous iron loading and was on EPO as outpatient. Follow up with Hematology. 4. Leg wound infection. Agree with changing vancomycin to ceftaroline, should be dosed for creatinine clearance less than 45 for now. Thank you for this referral. We will be following up closely. Reinier Archer MD
--- NOTE | 2018-06-25 05:58 | CON ---
DATE: 06/23/2018 INFECTIOUS DISEASE CONSULTATION REQUESTED BY: Felipa Mahajan MD HISTORY OF PRESENT ILLNESS: This patient is a 68-year-old male. He has a history of congestive heart failure, liver cirrhosis secondary to alcoholism, diabetes mellitus, hypertension. He is coming from the alf. At this time, he came in with a very low hemoglobin, and he was bleeding on the right leg ulcer during the wound care changes in the last few days I am told. He may be anemic due to liver cirrhosis. I am asked to evaluate him for his leg ulcers. He has had bilateral leg ulcerations which were positive for MRSA. He also has a PICC line in the right arm and he reported to have recent weaknesses, shortness of breath, cough and worsening scrotal edema and abdominal distention. He tells me that he had a peritoneal tap 2 weeks ago, but at this time, also he is markedly distended. He cannot even get up on his own or sit up. He has been on IV antibiotics and I need to review his old chart to see how long to give these. He was in the hospital from 05/22/2018 to 05/28/2018, and that is the time when he was started on antibiotics. He does have severe biventricular failure with LVEF of 10-15%, hypertension, and so from 05/24/2018 at least on that admission he went back on IV antibiotics. He denies any fevers, it is almost a month that he has been on antibiotics. He does have renal insufficiency, hence I have discontinued the vancomycin yesterday. He has difficulty sitting up, lying down. He takes his time and does not want to be bothered. ALLERGIES: HE IS NOT ALLERGIC TO ANY MEDICINE. PAST MEDICAL HISTORY: Significant for atrial fibrillation, CHF, COPD, diabetes mellitus, hypertension, hypercholesterolemia, pancreatitis, arthritis, ascites. PAST SURGICAL HISTORY: Appendicectomy and pacemaker in the past. He has been to this hospital, had peritoneal drainage done on several occasions; the last drainage was on 05/22/2018, and also on 06/06/2018, he had right pleural effusion tapped. FAMILY HISTORY: Unknown. SOCIAL HISTORY: Significant for formal alcohol user, quit 6 years ago, no substance abuse. REVIEW OF SYSTEMS: He does complain of weakness. Denied any chest pain, no palpitations. Does have some cough and shortness of breath and has extensive abdominal dilatation, has edema of the legs. He also has scrotal swelling but denies any burning in the urine. He does complain of skin ulcerations which are present on both legs. MEDICATIONS: On examination of his medications, I find he is on Tylenol. He is on simethicone, Maalox, aspirin 81 mg. Coreg was not given today. He is on ceftaroline 400 mg every 12 hours. He is on Colace, ferric acid, furosemide which is active, pantoprazole, and Crestor. He is on Entresto and he is going to be on Lasix tomorrow. Lasix, he got one dose today which was not discontinued. PHYSICAL EXAMINATION: VITAL SIGNS: On examination, I find his vitals T-max is 97.7, pulse 75, blood pressure 106/67, respirations are 20-22, and saturation is 95. GENERAL: He is alert, awake, oriented. HEENT: Head is atraumatic and normocephalic. Pupils are reacting to light. Tongue is moist. NECK: Supple. JVP is flat. LUNGS: Occasional wheeze present. HEART: S1, S2 is present. ABDOMEN: Markedly distended with ascites. GENITOURINARY: There is scrotal swelling. EXTREMITIES: Bilateral leg edema. He has ulcerations on both lower extremities. On the right, there is at least one open area which is dime shaped, and I opened up the dressings to look at the wounds and then put nonadhesive dressing with the help of the nurse. The left leg has ulcerations more on the posterior portion. There are at least four open areas with edema which were wrapped but they are healing and appeared to be now more superficial. He has a PICC line in the right arm. LABORATORY DATA: Labs are noted. White count is 6.2, hemoglobin 7.8, hematocrit 24.7, platelet count is 424. It seems like he has severe anemia. Today, he came with a CO2 is 35, anion gap is 9. BUN is 26, creatinine is 1.9, is elevated; glucose is 167. UA shows 1+ leukocytes, 2+ wbc, rbc, so he did have some leukocyte esterase. Micro hayden, I have not done any cultures, I would order, but his last wound culture when he came in in 05/2018, micro had MRSA. ASSESSMENT AND PLAN: He does have open wounds with leg edema, ulcerations, ascites, severe anemia. On 05/23/2018, there was MRSA and that is why I am giving him ceftaroline at this time because his creatinine is high and I do not want to complicate it further with vancomycin. Would leave him on this for 2 weeks. He also would benefit with another abdominal tap unless he improves with diuresis, and we will order a UA and urine C and S as the urine showed some leukocytes. We will follow with you. Yue Guillen MD
[2018-06-25 09:19] LABS: BASO # 0.1 K/uL (0.0-0.2); BASO % 1.1 % (0.0-2.0); EOS # 0.2 K/uL (0.0-0.7); EOS % 2.5 % (0.0-4.0); HEMOGLOBIN 8.1 g/dL (12.0-18.0); LYMPH # 0.7 K/uL (1.0-4.3); LYMPH % 10.3 % (20.0-40.0); MEAN CELL VOLUME 84.4 fL (80.0-94.0); MEAN CORPUSCULAR HEMOGLOBIN 26.3 pg (27.0-31.0); MEAN CORPUSCULAR HGB CONC 31.1 g/dL (33.0-37.0); MEAN PLATELET VOLUME 8.4 fL (7.2-11.7); MONO # 1.1 K/uL (0.0-0.8); MONO % 16.1 % (0.0-10.0); NEUT # 4.6 K/uL (1.8-7.0); NRBC % 0.5 % (0.0-2.0); RBC 3.07 Mil/uL (4.40-5.90); RED CELL DISTRIBUTION WIDTH 20.9 % (11.5-14.5); WHITE BLOOD COUNT 6.6 K/uL (4.8-10.8)
[2018-06-25 09:34] LABS: ALB/GLOB RATIO 1.1 (1.0-2.1); ALBUMIN 3.6 g/dL (3.5-5.0); CALCIUM 8.1 mg/dl (8.6-10.4)
[2018-06-25] MEDS: Ferric Sodium Gluconat Complex 62.5 mg/5 ml Vial IVPB SCH (09:34)
[2018-06-25] MEDS: Pantoprazole 40 mg EC Tab PO SCH (09:34)
[2018-06-25] MEDS: Sacubitril/Valsartan 24-26mg Tab PO SCH (09:35)
[2018-06-25 10:06] LABS: HEPATITIS B SURFACE AG Negative (NEGATIVE)
[2018-06-25 10:12] LABS: HEPATITIS A IGM NEGATIVE (NEGATIVE); HEPATITIS B CORE AB NEGATIVE (NEGATIVE)
[2018-06-25 10:15] LABS: ALPHA FETO PROTEIN 2.1 ng/mL (0.0-7.5)
[2018-06-25 10:23] LABS: HEPATITIS C ANTIBODY NEGATIVE (NEGATIVE)
[2018-06-25] MEDS: CEFTAROLINE IVPB SCH ×2 (10:38→22:10)
[2018-06-25] MEDS: WATER IVPB SCH ×2 (10:38→22:10)
[2018-06-25] MEDS: DEXTROSE 5% IVPB SCH ×2 (10:38→22:10)
[2018-06-25 11:07] LABS: HIV 1&2 ANTIBODY NEGATIVE (NEGATIVE)
--- NOTE | 2018-06-25 14:52 | PN ---
DATE: 06/25/2018 LOCATION: 566. SUBJECTIVE: This is a 68-year-old male seen initially for GI consultation on 06/24/2018, re-examined again today with intermittent period of abdominal pain, postprandial abdominal distention, with complaint of lower extremities pain, also on and off. No reported actual chest pain, palpitation or significant increase of shortness of breath. The entire chart is reviewed including but not limited to the most recent lab and radiology study results, current and previous medications list, current and previous medical events, case discussed with the staff at length. Today's lab results showed hemoglobin is still low at 8.1, hematocrit 25.9 with low indices highly suggestive of hypochromic macrocytic anemia, BUN 27, creatinine 2, blood glucose level 155, calcium 8.1 with increased to 37.7 as reported by me before, but normal CEA. PHYSICAL EXAMINATION: GENERAL: A 68-year-old male, afebrile, awake, alert, oriented. VITAL SIGNS: Pulse rate of 76, respiratory rate 20 to 22, blood pressure 120/72. HEENT: Showed pale and dry oral mucous membrane. Nonicteric sclerae. LUNGS: Few scattered crepitation. Decreased air entry at bases. HEART: Positive S1 and S2. ABDOMEN: Soft with mild generalized tenderness and mild distention. No mass or organomegaly. No rebound tenderness or guarding. EXTREMITIES: Without edema, clubbing, or cyanosis. IMPRESSION: 1. Anemia to rule out gastrointestinal blood loss upper versus lower. 2. Multiple past medical history including but not limited to chronic obstructive pulmonary disease, hypertension, congestive heart failure, poorly diabetes mellitus with hyperlipidemia and atrial fibrillation. 3. Known history of osteoarthritis. 4. Cardiac arrhythmia, status post pacemaker insertion. 5. Status post appendectomy. 6. Reported history of pancreatitis before. 7. On record, the patient's last colonoscopy was about two years ago, official report is not available as well as his upper endoscopy around the same time. SUGGESTIONS: 1. Agree with your plan. 2. Endoscopic evaluation of the gastrointestinal tract. 3. Serum lipase and amylase level. 4. Proton pump inhibitors IV. 5. Sectional abdominal and pelvic CAT scan. Further recommendations to follow. Lisandro Hernandze MD [facility] # [id number]
[2018-06-25 15:31] LABS: IRON 128 ug/dL (49-181)
--- NOTE | 2018-06-25 15:42 | CP.PCM.PN ---
Subjective - Date & Time of Evaluation Date of Evaluation: 06/25/18 Time of Evaluation: 15:42 Objective - Vital Signs/Intake and Output Vital Signs (last 24 hours): Temp Pulse Resp BP Pulse Ox 98.0 F 74 20 114/75 95 06/25/18 08:11 06/25/18 08:11 06/25/18 08:11 06/25/18 08:11 06/25/18 08:11 Intake and Output: 06/25/18 06/25/18 06:59 18:59 Intake Total 450 960 Output Total 1700 700 Balance -1250 260 - Medications Medications: Current Medications Acetaminophen (Tylenol 325mg Tab) 325 mg PO Q6H PRN PRN Reason: Pain, Mild (1-3) Al Hydrox/Mg Hydrox/Simethicone (Maalox Plus 30 Ml) 30 ml PO Q4H PRN PRN Reason: Heartburn Aspirin (Aspirin Chewable) 81 mg PO DAILY [facility] Last Admin: 06/24/18 09:15 Dose: 81 mg Carvedilol (Coreg) 3.125 mg PO BID [facility] Last Admin: 06/25/18 09:34 Dose: 3.125 mg Docusate Sodium (Colace) 100 mg PO TID [facility] Last Admin: 06/25/18 13:12 Dose: Not Given Ferric Sodium Gluconate Complex (Ferrlecit) 125 mg IVPB DAILY [facility] Stop: 07/02/18 10:01 Last Admin: 06/25/18 09:34 Dose: 125 mg Furosemide (Lasix) 60 mg IVP Q12H [facility] Last Admin: 06/25/18 06:53 Dose: 60 mg Ceftaroline Fosamil 400 mg/ (Dextrose) 100 mls @ 100 mls/hr IVPB Q12H [facility]; Protocol Last Admin: 06/25/18 10:38 Dose: 100 mls/hr Pantoprazole Sodium (Protonix Ec Tab) 40 mg PO DAILY [facility] Last Admin: 06/25/18 09:34 Dose: 40 mg Rosuvastatin Calcium (Crestor) 5 mg PO HS [facility] Last Admin: 06/24/18 22:09 Dose: 5 mg Sacubitril/Valsartan (Entresto 24 Mg-26 Mg) 1 tab PO DAILY [facility] Last Admin: 06/25/18 09:35 Dose: 1 tab - Labs Labs: 06/25/18 09:08 06/25/18 09:08 PT 13.9 SECONDS (9.7-12.2) H 06/23/18 16:39 INR 1.3 06/23/18 16:39 APTT 41 SECONDS (21-34) H 06/23/18 16:39
[2018-06-25 15:52] LABS: % IRON SATURATION 31 (20-55); TOTAL IRON BINDING CAPACITY 411 ug/dL (250-450)
--- NOTE | 2018-06-25 16:29 | CP.PCM.PN ---
<Kristopher Landin - Last Filed: 06/25/18 16:13> Subjective - Date & Time of Evaluation Date of Evaluation: 06/25/18 Time of Evaluation: 07:25 - Subjective Subjective: Nephro Progress Note for Dr. Archer Service Kristopher Landin DO, IM PGY-3 Patient seen and examined at bedside. Currently complaining of sensation of intermittently but urgently needing to move bowels. Defecated on chair while sitting during exam. Also reports repeated sensation of needing to urinate but feeling unable to fully empty bladder. Prior bladder scans indicate normal emptying, suggestive of urge incontinence. Denies dysuria, hematuria. Currently with in place for 24hr urine collection. Objective - Vital Signs/Intake and Output Vital Signs (last 24 hours): Temp Pulse Resp BP Pulse Ox 97.6 F 84 20 122/76 95 06/25/18 15:00 06/25/18 15:00 06/25/18 15:00 06/25/18 15:00 06/25/18 15:00 Intake and Output: 06/25/18 06/25/18 06:59 18:59 Intake Total 450 960 Output Total 1700 700 Balance -1250 260 - Medications Medications: Current Medications Acetaminophen (Tylenol 325mg Tab) 325 mg PO Q6H PRN PRN Reason: Pain, Mild (1-3) Al Hydrox/Mg Hydrox/Simethicone (Maalox Plus 30 Ml) 30 ml PO Q4H PRN PRN Reason: Heartburn Aspirin (Aspirin Chewable) 81 mg PO DAILY [facility] Last Admin: 06/24/18 09:15 Dose: 81 mg Carvedilol (Coreg) 3.125 mg PO BID [facility] Last Admin: 06/25/18 09:34 Dose: 3.125 mg Docusate Sodium (Colace) 100 mg PO TID [facility] Last Admin: 06/25/18 13:12 Dose: Not Given Ferric Sodium Gluconate Complex (Ferrlecit) 125 mg IVPB DAILY [facility] Stop: 07/02/18 10:01 Last Admin: 06/25/18 09:34 Dose: 125 mg Furosemide (Lasix) 60 mg IVP Q12H [facility] Last Admin: 06/25/18 06:53 Dose: 60 mg Ceftaroline Fosamil 400 mg/ (Dextrose) 100 mls @ 100 mls/hr IVPB Q12H [facility]; Protocol Last Admin: 06/25/18 10:38 Dose: 100 mls/hr Pantoprazole Sodium (Protonix Ec Tab) 40 mg PO DAILY [facility] Last Admin: 06/25/18 09:34 Dose: 40 mg Rosuvastatin Calcium (Crestor) 5 mg PO HS [facility] Last Admin: 06/24/18 22:09 Dose: 5 mg Sacubitril/Valsartan (Entresto 24 Mg-26 Mg) 1 tab PO DAILY [facility] Last Admin: 06/25/18 09:35 Dose: 1 tab - Labs Labs: 06/25/18 09:08 06/25/18 09:08 PT 13.9 SECONDS (9.7-12.2) H 06/23/18 16:39 INR 1.3 06/23/18 16:39 APTT 41 SECONDS (21-34) H 06/23/18 16:39 - Constitutional Appears: Non-toxic, Chronically Ill - Head Exam Head Exam: ATRAUMATIC, NORMAL INSPECTION, NORMOCEPHALIC - Eye Exam Eye Exam: Normal appearance. absent: Conjunctival injection, Scleral icterus Pupil Exam: absent: Irregular, Unequal - ENT Exam ENT Exam: Mucous Membranes Moist - Neck Exam Neck Exam: Full ROM. absent: Thyromegaly - Respiratory Exam Respiratory Exam: Clear to Ausculation Bilateral, NORMAL BREATHING PATTERN. absent: Accessory Muscle Use, Chest Wall Tenderness, Decreased Breath Sounds, Rales, Rhonchi, Wheezes - Cardiovascular Exam Cardiovascular Exam: REGULAR RHYTHM, RRR, +S1, +S2, Murmur (holosystolic murmur). absent: Bradycardia, Tachycardia, Irregular Rhythm, JVD, +S4 - GI/Abdominal Exam Additional comments: distended with fluid wave, but not rigid, able to compress with palpation, not tender to palpation no caput medusa appreciated distant but present bowel sounds - Exam Exam: Scrotal Swelling Additional comments: in place unable to visual penis due to edematous scrotum, only able to determine general location due to emitting from edematous region scrotum swollen but not erythematous, no tenderness on palpation - Extremities Exam Extremities Exam: Normal Capillary Refill, Pedal Edema (+1 pitting edema in bilateral LE at ankles, trace up to mid-shins). absent: Tenderness Additional comments: +2 radials and +1 dorsalis pedis bilaterally - Neurological Exam Additional comments: awake and alert, limited gait 2/2 back pain and general deconditioning no focal deficits appreciated on exam follows all commands appropriately - Psychiatric Exam Psychiatric exam: Normal Affect, Normal Mood - Skin Skin Exam: Dry, Intact, Normal Color, Warm Assessment and Plan - Assessment and Plan (Free Text) Assessment: This is a 68yo AA M with PMH of Anemia, chronic GI bleeding, liver cirrhosis, HTN, DM, and HFrEF who presented from [place] with elevated vanco trough and anemia requiring transfusion. Nephro was consulted for acute renal failure overlying CKD. Plan: 1) HFrEF with likely exacerbation 2) Cirrhosis 3) DM 4) Chronic LE wounds 5) Anemia 6) Chronic GI bleed hx 7) Acute renal failure ddx: cardiorenal vs drug induced vs hypoperfusion 2/2 severe anemia -Baseline Cr 1.3-1.4, 1.8 on admission, 1.9 today -Minimal protein in urine, and in setting of HFrEF and RV pressure overload, highly suspicious for cardiorenal syndrome Continue diuresis in setting of cardiorenal, put out 170cc with 60mg IV lasix from last night, continue Lasix 60mg IV q12 -Vanco trough 27 at [facility], now 20.2 today, so may be contributing to renal insult switched to ceftaroline by ID, recommend dosing based on creatinine clearance -chronic anemia, transfused 2 units pRBCs overnight, Hgb only improved from 7 to 8.1, but no signs of acute bleeding has thus far remained hemodynamically stable, continue to monitor - in place for 24hr urine collection, urine studies, strict I's and O's on diuretics -daily weights ordered -continue EPO and iron supplementation, iron studies ordered -Urine sodium ordered for 1hr prior to next IV Lasix dose Patient seen and reviewed with attending, Dr. Archer. <Reinier Archer - Last Filed: 06/26/18 08:57> Objective - Vital Signs/Intake and Output Vital Signs (last 24 hours): Temp Pulse Resp BP Pulse Ox 98.0 F 77 20 109/72 96 06/26/18 07:30 06/26/18 07:30 06/26/18 07:30 06/26/18 07:30 06/26/18 07:30 Intake and Output: 06/26/18 06/26/18 06:59 18:59 Intake Total 460 Output Total 700 Balance -240 - Medications Medications: Current Medications Acetaminophen (Tylenol 325mg Tab) 325 mg PO Q6H PRN PRN Reason: Pain, Mild (1-3) Al Hydrox/Mg Hydrox/Simethicone (Maalox Plus 30 Ml) 30 ml PO Q4H PRN PRN Reason: Heartburn Aspirin (Aspirin Chewable) 81 mg PO DAILY [facility] Last Admin: 06/24/18 09:15 Dose: 81 mg Carvedilol (Coreg) 3.125 mg PO BID [facility] Last Admin: 06/25/18 17:54 Dose: 3.125 mg Docusate Sodium (Colace) 100 mg PO TID [facility] Last Admin: 06/25/18 17:54 Dose: 100 mg Ferric Sodium Gluconate Complex (Ferrlecit) 125 mg IVPB DAILY [facility] Stop: 07/02/18 10:01 Last Admin: 06/25/18 09:34 Dose: 125 mg Furosemide (Lasix) 60 mg IVP Q12H [facility] Last Admin: 06/26/18 05:55 Dose: 60 mg Ceftaroline Fosamil 400 mg/ (Dextrose) 100 mls @ 100 mls/hr IVPB Q12H [facility]; Protocol Last Admin: 06/25/18 22:10 Dose: 100 mls/hr Pantoprazole Sodium (Protonix Ec Tab) 40 mg PO DAILY [facility] Last Admin: 06/25/18 09:34 Dose: 40 mg Rosuvastatin Calcium (Crestor) 5 mg PO HS [facility] Last Admin: 06/25/18 22:10 Dose: Not Given Sacubitril/Valsartan (Entresto 24 Mg-26 Mg) 1 tab PO DAILY [facility] Last Admin: 06/25/18 09:35 Dose: 1 tab - Labs Labs: 06/25/18 09:08 06/25/18 09:08 PT 13.9 SECONDS (9.7-12.2) H 06/23/18 16:39 INR 1.3 06/23/18 16:39 APTT 41 SECONDS (21-34) H 06/23/18 16:39 Attending/Attestation - Attestation I have personally seen and examined this patient.: Yes I have fully participated in the care of the patient.: Yes I have reviewed all pertinent clinical information, including history, physical exam and plan: Yes Notes (Text): Patient seen and examined; I agree with the resident's note as above
--- NOTE | 2018-06-25 16:35 | CP.PCM.PN ---
Subjective - Date & Time of Evaluation Date of Evaluation: 06/25/18 Time of Evaluation: 16:32 - Subjective Subjective: Podiatry Progress Note for Dr. Montoya 68M seen and evaluated at bedside with Dr. Montoya for b/l leg wounds. Patient is AAO x 3 and NAD, resting comfortably in bed. Denies any acute overnight events or new pedal complaints. Denies any pain to either ulceration site. Denies any recent N/V/F/C/CP/SOB/D Objective - Vital Signs/Intake and Output Vital Signs (last 24 hours): Temp Pulse Resp BP Pulse Ox 97.6 F 84 20 122/76 95 06/25/18 15:00 06/25/18 15:00 06/25/18 15:00 06/25/18 15:00 06/25/18 15:00 Intake and Output: 06/25/18 06/25/18 06:59 18:59 Intake Total 450 960 Output Total 1700 700 Balance -1250 260 - Medications Medications: Current Medications Acetaminophen (Tylenol 325mg Tab) 325 mg PO Q6H PRN PRN Reason: Pain, Mild (1-3) Al Hydrox/Mg Hydrox/Simethicone (Maalox Plus 30 Ml) 30 ml PO Q4H PRN PRN Reason: Heartburn Aspirin (Aspirin Chewable) 81 mg PO DAILY [facility] Last Admin: 06/24/18 09:15 Dose: 81 mg Carvedilol (Coreg) 3.125 mg PO BID [facility] Last Admin: 06/25/18 09:34 Dose: 3.125 mg Docusate Sodium (Colace) 100 mg PO TID [facility] Last Admin: 06/25/18 13:12 Dose: Not Given Ferric Sodium Gluconate Complex (Ferrlecit) 125 mg IVPB DAILY [facility] Stop: 07/02/18 10:01 Last Admin: 06/25/18 09:34 Dose: 125 mg Furosemide (Lasix) 60 mg IVP Q12H [facility] Last Admin: 06/25/18 06:53 Dose: 60 mg Ceftaroline Fosamil 400 mg/ (Dextrose) 100 mls @ 100 mls/hr IVPB Q12H [facility]; Protocol Last Admin: 06/25/18 10:38 Dose: 100 mls/hr Pantoprazole Sodium (Protonix Ec Tab) 40 mg PO DAILY [facility] Last Admin: 06/25/18 09:34 Dose: 40 mg Rosuvastatin Calcium (Crestor) 5 mg PO HS [facility] Last Admin: 06/24/18 22:09 Dose: 5 mg Sacubitril/Valsartan (Entresto 24 Mg-26 Mg) 1 tab PO DAILY [facility] Last Admin: 06/25/18 09:35 Dose: 1 tab - Labs Labs: 06/25/18 09:08 06/25/18 09:08 PT 13.9 SECONDS (9.7-12.2) H 06/23/18 16:39 INR 1.3 06/23/18 16:39 APTT 41 SECONDS (21-34) H 06/23/18 16:39 - Constitutional Appears: Well, Non-toxic, No Acute Distress - Extremities Exam Additional comments: LE focused exam Vasc: DP/PT pulses faintly palpable 1/4. Skin temperature warm to warm from proximal to distal WNL. CFT < 3 seconds to all digits. Minimal edema noted diffusely Neuro: Epicritic and protective sensation grossly diminished Derm: 2 wounds, each 0.5 cm x 0.5 cm x 0.1 cm ulceration noted to medial aspect of left leg with mixed fibrogranular wound base. Minimal serous drainage appreciated. No malodor, purulence, tracking, tunneling or undermining appreciated. No other clinical signs of infection noted. Right leg reveals very small anterior leg wound measuring 0.2 x 0.2 x 0.1 cm with granular base and no evidence of infection or bleeding appreciated MSK: No pain on palpation to ulceration site. No gross deformities noted - Neurological Exam Neurological Exam: Alert, Awake, Oriented x3 - Psychiatric Exam Psychiatric exam: Normal Affect, Normal Mood Assessment and Plan - Assessment and Plan (Free Text) Assessment: 68M seen and evaluated at bedside with Dr. Montoya for b/l leg wounds Plan: Patient seen and evaluated with Dr. Montoya Afebrile, absent leukocytosis Continue abx per ID Wounds dressed with xeroform, DSD No plan for surgical intervention at this time Podiatry will continue to follow while patient in hous
--- NOTE | 2018-06-25 19:47 | CP.PCM.PN ---
Subjective - Date & Time of Evaluation Date of Evaluation: 06/25/18 - Subjective Subjective: patient seen and examined no fever, no dizziness, no nausea, no diarrhea, no shortness of breath Objective - Vital Signs/Intake and Output Vital Signs (last 24 hours): Temp Pulse Resp BP Pulse Ox 97.6 F 84 20 122/76 95 06/25/18 15:00 06/25/18 15:00 06/25/18 15:00 06/25/18 17:54 06/25/18 15:00 Intake and Output: 06/25/18 06/26/18 18:59 06:59 Intake Total 960 Output Total 700 Balance 260 - Medications Medications: Current Medications Acetaminophen (Tylenol 325mg Tab) 325 mg PO Q6H PRN PRN Reason: Pain, Mild (1-3) Al Hydrox/Mg Hydrox/Simethicone (Maalox Plus 30 Ml) 30 ml PO Q4H PRN PRN Reason: Heartburn Aspirin (Aspirin Chewable) 81 mg PO DAILY [facility] Last Admin: 06/24/18 09:15 Dose: 81 mg Carvedilol (Coreg) 3.125 mg PO BID [facility] Last Admin: 06/25/18 17:54 Dose: 3.125 mg Docusate Sodium (Colace) 100 mg PO TID [facility] Last Admin: 06/25/18 17:54 Dose: 100 mg Ferric Sodium Gluconate Complex (Ferrlecit) 125 mg IVPB DAILY [facility] Stop: 07/02/18 10:01 Last Admin: 06/25/18 09:34 Dose: 125 mg Furosemide (Lasix) 60 mg IVP Q12H [facility] Last Admin: 06/25/18 17:54 Dose: 60 mg Ceftaroline Fosamil 400 mg/ (Dextrose) 100 mls @ 100 mls/hr IVPB Q12H [facility]; Protocol Last Admin: 06/25/18 10:38 Dose: 100 mls/hr Pantoprazole Sodium (Protonix Ec Tab) 40 mg PO DAILY [facility] Last Admin: 06/25/18 09:34 Dose: 40 mg Rosuvastatin Calcium (Crestor) 5 mg PO HS [facility] Last Admin: 06/24/18 22:09 Dose: 5 mg Sacubitril/Valsartan (Entresto 24 Mg-26 Mg) 1 tab PO DAILY [facility] Last Admin: 06/25/18 09:35 Dose: 1 tab - Labs Labs: 06/25/18 09:08 06/25/18 09:08 PT 13.9 SECONDS (9.7-12.2) H 06/23/18 16:39 INR 1.3 06/23/18 16:39 APTT 41 SECONDS (21-34) H 06/23/18 16:39 - Constitutional Appears: Well - Head Exam Head Exam: ATRAUMATIC, NORMAL INSPECTION, NORMOCEPHALIC - Eye Exam Eye Exam: EOMI, Normal appearance, PERRL Pupil Exam: NORMAL ACCOMODATION, PERRL - ENT Exam ENT Exam: Mucous Membranes Moist, Normal Exam - Neck Exam Neck Exam: Full ROM, Normal Inspection. absent: Lymphadenopathy - Respiratory Exam Respiratory Exam: Decreased Breath Sounds - Cardiovascular Exam Cardiovascular Exam: REGULAR RHYTHM, +S1, +S2 - GI/Abdominal Exam GI & Abdominal Exam: Soft, Diminished Bowel Sounds - Rectal Exam Rectal Exam: Deferred - Neurological Exam Neurological Exam: Oriented x3 Assessment and Plan - Assessment and Plan (Free Text) Plan: medications reviewed labs reviewed vitals reviewed
[2018-06-26] MEDS: Pantoprazole 40 mg EC Tab PO SCH ×2 (09:37→10:20)
[2018-06-26] MEDS: Ferric Sodium Gluconat Complex 62.5 mg/5 ml Vial IVPB SCH ×2 (09:37→10:24)
[2018-06-26] MEDS: DEXTROSE 5% IVPB SCH ×2 (10:30→22:27)
[2018-06-26] MEDS: WATER IVPB SCH ×2 (10:30→22:27)
[2018-06-26] MEDS: CEFTAROLINE IVPB SCH ×2 (10:30→22:27)
--- NOTE | 2018-06-26 11:17 | CP.PCM.PN ---
<Kristopher Landin - Last Filed: 06/26/18 11:12> Subjective - Date & Time of Evaluation Date of Evaluation: 06/26/18 Time of Evaluation: 07:30 - Subjective Subjective: Nephro Progress Note for Dr. Archer Service Kristopher Landin DO, PGY-3 Patient seen and examined at bedside. removed and patient reports urinating frequently but without issue. Does complain of continued diarrhea and continued soiling of himself (unable to make it to bathroom in time when feels urge to defecate). Denies hematuria or dysura. Reports feeling like his scrotal and abdominal fullness have improved. Objective - Vital Signs/Intake and Output Vital Signs (last 24 hours): Temp Pulse Resp BP Pulse Ox 98.0 F 77 20 109/72 96 06/26/18 07:30 06/26/18 07:30 06/26/18 07:30 06/26/18 07:30 06/26/18 07:30 Intake and Output: 06/26/18 06/26/18 06:59 18:59 Intake Total 460 Output Total 700 Balance -240 - Medications Medications: Current Medications Acetaminophen (Tylenol 325mg Tab) 325 mg PO Q6H PRN PRN Reason: Pain, Mild (1-3) Al Hydrox/Mg Hydrox/Simethicone (Maalox Plus 30 Ml) 30 ml PO Q4H PRN PRN Reason: Heartburn Aspirin (Aspirin Chewable) 81 mg PO DAILY [facility] Last Admin: 06/24/18 09:15 Dose: 81 mg Carvedilol (Coreg) 3.125 mg PO BID [facility] Last Admin: 06/26/18 10:20 Dose: 3.125 mg Docusate Sodium (Colace) 100 mg PO TID [facility] Last Admin: 06/26/18 09:37 Dose: Not Given Ferric Sodium Gluconate Complex (Ferrlecit) 125 mg IVPB DAILY [facility] Stop: 07/02/18 10:01 Last Admin: 06/26/18 10:24 Dose: 125 mg Furosemide (Lasix) 60 mg IVP Q12H [facility] Last Admin: 06/26/18 05:55 Dose: 60 mg Ceftaroline Fosamil 400 mg/ (Dextrose) 100 mls @ 100 mls/hr IVPB Q12H [facility]; Protocol Last Admin: 04/10/19 22:10 Dose: 100 mls/hr Pantoprazole Sodium (Protonix Ec Tab) 40 mg PO DAILY [facility] Last Admin: 06/26/18 10:20 Dose: 40 mg Rosuvastatin Calcium (Crestor) 5 mg PO HS [facility] Last Admin: 06/25/18 22:10 Dose: Not Given Sacubitril/Valsartan (Entresto 24 Mg-26 Mg) 1 tab PO DAILY [facility] Last Admin: 06/25/18 09:35 Dose: 1 tab - Labs Labs: 06/25/18 09:08 06/25/18 09:08 PT 13.9 SECONDS (9.7-12.2) H 06/23/18 16:39 INR 1.3 06/23/18 16:39 APTT 41 SECONDS (21-34) H 06/23/18 16:39 - Additional Findings Additional findings: - Constitutional Appears: Non-toxic, Chronically Ill - Head Exam Head Exam: ATRAUMATIC, NORMAL INSPECTION, NORMOCEPHALIC - Eye Exam Eye Exam: Normal appearance. absent: Conjunctival injection, Scleral icterus Pupil Exam: absent: Irregular, Unequal - ENT Exam ENT Exam: Mucous Membranes Moist - Neck Exam Neck Exam: Thyromegaly - Respiratory Exam Respiratory Exam: Clear to Ausculation Bilateral, NORMAL BREATHING PATTERN. absent: Accessory Muscle Use, Chest Wall Tenderness, Decreased Breath Sounds, Rales, Rhonchi, Wheezes - Cardiovascular Exam Cardiovascular Exam: REGULAR RHYTHM, RRR, +S1, +S2, Murmur (holosystolic murmur). absent: Bradycardia, Tachycardia, Irregular Rhythm, JVD, +S4 - GI/Abdominal Exam distended with fluid wave, but not rigid, able to compress with palpation, not tender to palpation no caput medusa appreciated - Exam Exam: Improved Scrotal Swelling, no erythema, no tenderness on palpation - Extremities Exam Extremities Exam: Normal Capillary Refill, Pedal Edema (+1 pitting edema in bilateral LE at ankles, trace up to mid-shins), +2 radials and +1 dorsalis pedis bilaterally - Neurological Exam awake and alert, no focal deficits appreciated on exam, follows all commands appropriately - Psychiatric Exam Psychiatric exam: Normal Affect, Normal Mood - Skin Skin Exam: Dry, Intact, Normal Color, Warm Assessment and Plan - Assessment and Plan (Free Text) Assessment: This is a 68yo AA M with PMH of Anemia, chronic GI bleeding, liver cirrhosis, HTN, DM, and HFrEF who presented from [place] with elevated vanco trough and anemia requiring transfusion. Nephro was consulted for acute renal failure overlying CKD. Plan: 1) HFrEF with likely exacerbation 2) Cirrhosis 3) DM 4) Chronic LE wounds 5) Anemia 6) Chronic GI bleed hx 7) Acute renal failure ddx: cardiorenal vs drug induced vs hypoperfusion 2/2 severe anemia -Baseline Cr 1.3-1.4, 1.8 on admission, pending today's labs -Minimal protein in urine, and in setting of HFrEF and RV pressure overload, highly suspicious for cardiorenal syndrome Continue diuresis in setting of cardiorenal, put out another 1400cc yesterday, continue Lasix 60mg IV q12 -Vanco trough 27 at [facility], 20.2 on admission, so may be contributing to renal insult switched to ceftaroline by ID, recommend dosing based on creatinine clearance -chronic anemia, transfused 2 units pRBCs overnight, Hgb only improved from 7 to 8.1 (pending today's Hgb), but no signs of acute bleeding has thus far remained hemodynamically stable, continue to monitor - removed, continue to track urine output on IV lasix -daily weights ordered -continue EPO and iron supplementation Iron Studies: iron 128, % sat 30, TIBC 411, Ferritin 54.4 -Urine sodium ordered for 1hr prior to next IV Lasix dose Patient reviewed and discussed with attending, Dr. Archer. <Reinier Archer - Last Filed: 06/27/18 08:31> Objective - Vital Signs/Intake and Output Vital Signs (last 24 hours): Temp Pulse Resp BP Pulse Ox 97.4 F L 85 17 124/74 100 06/27/18 04:00 06/27/18 07:02 06/27/18 07:02 06/27/18 07:02 06/27/18 07:02 Intake and Output: 06/27/18 06/27/18 06:59 18:59 Intake Total 1203.2 62 Output Total 125 0 Balance 1078.2 62 - Medications Medications: Current Medications Acetaminophen (Tylenol 325mg Tab) 325 mg PO Q6H PRN PRN Reason: Pain, Mild (1-3) Al Hydrox/Mg Hydrox/Simethicone (Maalox Plus 30 Ml) 30 ml PO Q4H PRN PRN Reason: Heartburn Aspirin (Aspirin Chewable) 81 mg PO DAILY [facility] Last Admin: 06/24/18 09:15 Dose: 81 mg Carvedilol (Coreg) 3.125 mg PO BID [facility] Last Admin: 06/26/18 17:17 Dose: Not Given Enoxaparin Sodium (Lovenox) 40 mg SC DAILY [facility] Last Admin: 06/26/18 15:33 Dose: 40 mg Ferric Sodium Gluconate Complex (Ferrlecit) 125 mg IVPB DAILY [facility] Stop: 07/02/18 10:01 Last Admin: 06/26/18 10:24 Dose: 125 mg Furosemide (Lasix) 60 mg IVP DAILY [facility] Ceftaroline Fosamil 400 mg/ (Dextrose) 100 mls @ 100 mls/hr IVPB Q12H [facility]; Protocol Last Admin: 06/26/18 22:27 Dose: 100 mls/hr Phenylephrine HCl 30 mg/ (Sodium Chloride) 253 mls @ 10.12 mls/hr IV .Q24H PRN; Protocol PRN Reason: TITRATE PER MD ORDER Last Admin: 06/27/18 03:53 Dose: 100 mcg/min, 50.6 mls/hr Fentanyl Citrate 2,500 mcg/ (Sodium Chloride) 250 mls @ 24.11 mls/hr IV .[id number] PRN; Protocol PRN Reason: PER TITRATION Last Titration: 06/26/18 19:45 Dose: 1 mcg/kg/hr, 12.06 mls/hr Lorazepam (Ativan) 1 mg IVP Q4H PRN PRN Reason: Anxiety Last Admin: 06/27/18 06:38 Dose: 1 mg Pantoprazole Sodium (Protonix Ec Tab) 40 mg PO DAILY [facility] Last Admin: 06/26/18 10:20 Dose: 40 mg Rosuvastatin Calcium (Crestor) 5 mg PO HS [facility] Last Admin: 06/26/18 22:20 Dose: Not Given Sacubitril/Valsartan (Entresto 24 Mg-26 Mg) 1 tab PO DAILY [facility] Last Admin: 06/25/18 09:35 Dose: 1 tab - Labs Labs: 06/27/18 06:15 06/27/18 06:15 PT 13.9 SECONDS (9.7-12.2) H 06/23/18 16:39 INR 1.3 06/23/18 16:39 APTT 41 SECONDS (21-34) H 06/23/18 16:39 Attending/Attestation - Attestation I have personally seen and examined this patient.: Yes I have fully participated in the care of the patient.: Yes I have reviewed all pertinent clinical information, including history, physical exam and plan: Yes Notes (Text): Patient seen and examined; I agree with the resident's note as above with the following additions/edits: Patient went for EGD today in the setting of profound anemia with inadequate response to prbc transfusion; unclear what transpired during EGD but patient subsequently hypotensive and required endotracheal intubation; Being seen for acute kidney injury in the setting of acute decompensated systolic CHF; HELENE thought to be cardiorenal (also partly ATN from high vanco level) and diuretics were upgraded to IV lasix 60 mg q12h with patient having go od response and diuresing adequately; serum creatinine mildly increased today; holding diuretics for now until patient stabilized; We will continue to follow closely.
[2018-06-26] MEDS ORDERED: Midazolam 2 MG/2 ML VIAL ONE (11:26)
[2018-06-26] MEDS ORDERED: Propofol 10 mg/ml Inj (20 ML) ONE (11:26)
[2018-06-26] MEDS ORDERED: Flumazenil 0.1 mg/ml Inj (5ml) IVP ONE (12:41)
[2018-06-26] MEDS: Phenylephrine 30 MG in Sodium Chloride 0.9% 250 ML IV PRN ×2 (13:06→22:22)
--- NOTE | 2018-06-26 14:35 | CP.PCM.PN ---
Subjective - Date & Time of Evaluation Date of Evaluation: 06/26/18 Time of Evaluation: 14:35 - Subjective Subjective: PT SUFFERED HYPOXIC RESP FAILURE DURING EGD TODAY. HE WAS INTUBATED AND BOUGHT TO ICU. PT CURRENTLY ON VENT, SEDATION AND PRESSORS. PTS BELLY IS DISTENDED. HE IS SEDATED AND NON VERBAL. RECORDS REVIEWED Objective - Vital Signs/Intake and Output Vital Signs (last 24 hours): Temp Pulse Resp BP Pulse Ox 97.5 F L 85 22 98/68 L 100 06/26/18 12:30 06/26/18 14:00 06/26/18 14:00 06/26/18 14:00 06/26/18 14:00 Intake and Output: 06/26/18 06/26/18 06:59 18:59 Intake Total 460 568.3 Output Total 700 Balance -240 568.3 - Medications Medications: Current Medications Acetaminophen (Tylenol 325mg Tab) 325 mg PO Q6H PRN PRN Reason: Pain, Mild (1-3) Al Hydrox/Mg Hydrox/Simethicone (Maalox Plus 30 Ml) 30 ml PO Q4H PRN PRN Reason: Heartburn Aspirin (Aspirin Chewable) 81 mg PO DAILY [facility] Last Admin: 06/24/18 09:15 Dose: 81 mg Carvedilol (Coreg) 3.125 mg PO BID [facility] Last Admin: 06/26/18 10:20 Dose: 3.125 mg Ferric Sodium Gluconate Complex (Ferrlecit) 125 mg IVPB DAILY [facility] Stop: 07/02/18 10:01 Last Admin: 06/26/18 10:24 Dose: 125 mg Furosemide (Lasix) 60 mg IVP Q12H [facility] Last Admin: 06/26/18 05:55 Dose: 60 mg Ceftaroline Fosamil 400 mg/ (Dextrose) 100 mls @ 100 mls/hr IVPB Q12H [facility]; Protocol Last Admin: 06/26/18 10:30 Dose: Not Given Phenylephrine HCl 30 mg/ (Sodium Chloride) 253 mls @ 10.12 mls/hr IV .Q24H PRN; Protocol PRN Reason: TITRATE PER MD ORDER Last Admin: 06/26/18 13:06 Dose: 20 mcg/min, 10.12 mls/hr Fentanyl Citrate 2,500 mcg/ (Sodium Chloride) 250 mls @ 24.11 mls/hr IV .[id number] PRN; Protocol PRN Reason: PER TITRATION Last Titration: 06/26/18 13:14 Dose: 1 mcg/kg/hr, 12.06 mls/hr Pantoprazole Sodium (Protonix Ec Tab) 40 mg PO DAILY [facility] Last Admin: 06/26/18 10:20 Dose: 40 mg Rosuvastatin Calcium (Crestor) 5 mg PO HS [facility] Last Admin: 06/25/18 22:10 Dose: Not Given Sacubitril/Valsartan (Entresto 24 Mg-26 Mg) 1 tab PO DAILY [facility] Last Admin: 06/25/18 09:35 Dose: 1 tab - Labs Labs: 06/25/18 09:08 06/25/18 09:08 PT 13.9 SECONDS (9.7-12.2) H 06/23/18 16:39 INR 1.3 06/23/18 16:39 APTT 41 SECONDS (21-34) H 06/23/18 16:39 - Constitutional Appears: Toxic - Head Exam Head Exam: ATRAUMATIC, NORMAL INSPECTION, NORMOCEPHALIC - Eye Exam Eye Exam: EOMI, Normal appearance, PERRL. absent: Conjunctival injection, Nystagmus, Periorbital swelling, Periorbital tenderness, Scleral icterus Pupil Exam: NORMAL ACCOMODATION, PERRL - ENT Exam ENT Exam: Mucous Membranes Moist, Normal Exam. absent: Mucous Membranes Dry, Normal External Ear Exam, Normal Oropharynx, TM's Normal Bilaterally - Neck Exam Neck Exam: Full ROM, Normal Inspection. absent: Lymphadenopathy, Meningismus, Tenderness, Thyromegaly - Respiratory Exam Respiratory Exam: Rhonchi, Wheezes. absent: Accessory Muscle Use, Chest Wall Tenderness, Decreased Breath Sounds, Clear to Ausculation Bilateral, Prolonged Expiratory Phase, Rales, Respiratory Distress, Stridor, NORMAL BREATHING PATTERN Additional comments: VENTED - Cardiovascular Exam Cardiovascular Exam: Diastolic murmur, REGULAR RHYTHM, +S1, +S2, Murmur. absent: Bradycardia, Tachycardia, Clicks, Gallop, Irregular Rhythm, JVD, RRR, Rubs, +S4 - GI/Abdominal Exam GI & Abdominal Exam: Distended, Firm, Rigid, Tenderness, Hypoactive Bowel Sounds. absent: Bruit, Guarding, Soft, Diminished Bowel Sounds, Hernia, Hyperactive Bowel Sounds, Normal Bowel Sounds, Organomegaly, Pulsatile Mass, Rebound, Mass - Rectal Exam Rectal Exam: Deferred - Extremities Exam Extremities Exam: Pedal Edema, Tenderness. absent: Calf Tenderness, Full ROM, Joint Swelling, Normal Capillary Refill, Normal Inspection - Back Exam Back Exam: NORMAL INSPECTION. absent: CVA tenderness (L), CVA tenderness (R), Full ROM, muscle spasm, paraspinal tenderness, rash noted, tenderness, vertebral tenderness - Neurological Exam Additional comments: SEDATED - Psychiatric Exam Psychiatric exam: Flat Affect. absent: Agitated, Anxious, Depressed, Homicidal Ideation, Manic, Normal Affect, Normal Mood, Suicidal Ideation - Skin Skin Exam: Dry, Intact, Normal Color, Warm. absent: Abrasion, Cyanosis, Diaphoretic, Erythema, Mottled, Pallor, Pallor, Petechiae, Rash, Urticaria, Ves icles Assessment and Plan (1) Respiratory failure Status: Acute (2) Liver cirrhosis Status: Chronic (3) Abdominal distension Status: Acute (4) Anemia Status: Acute (5) PHT (pulmonary hypertension) Status: Acute (6) AICD (automatic cardioverter/defibrillator) present Status: Chronic (7) Chronic ulcer of lower extremity Status: Chronic (8) Scrotal edema Status: Acute (9) Ascites Status: Acute (10) Abdominal distension Status: Acute (11) Bronchitis Status: Chronic - Assessment and Plan (Free Text) Plan: PTS ABDOMEN IS EXTREMELY DISTENDED AND RIGID. HIS SCROTAL EDEMA IS PRESENT. I SUSPECT INTRA-ABDOMINAL PATHOLOGY EXACERBATING HIS ALREADY TENUOUS RESP STATUS. i have ordered the following ct abd to look for obstruction and eval liver and ascites le doppler to eval for dvt and d dimer repeat bnp am labs decreased lasix given hypotension pts anasarca is out of proportion to his cardiac function. pt is hypotensive and cr increasing. 60 min total critical care
--- NOTE | 2018-06-26 14:36 | RAD ---
Date of service: 06/26/2018 PROCEDURE: Radiographs of the chest and abdomen (obstructive series) HISTORY: Obstructive series COMPARISON: Chest radiograph from 06/23/2018. TECHNIQUE: AP radiograph of the chest, with upright and supine radiographs of the abdomen. 3 views obtained. FINDINGS: Endotracheal tube terminates 4 cm proximal to the dario. Right-sided PICC line terminates in the SVC. CHEST: Lungs: There is airspace disease in the right lower lobe. The left lung is clear. There is mild pulmonary venous congestion. Cardiovascular: Moderate cardiomegaly. There is a left-sided permanent pacing device. No aortic atherosclerotic calcification present Pleura: Moderate right pleural effusion and fluid in the minor fissure. No pneumothorax. Other findings: None. ABDOMEN AND PELVIS: Bowel: There are gas filled normal caliber small bowel loops. Bowel gas pattern is nonspecific and nonobstructive. No evidence of mechanical obstruction. Free air: None. Bones: Unremarkable. Other findings: None. IMPRESSION: 1. Nonspecific nonobstructive bowel gas pattern. 2. Moderate cardiomegaly, mild pulmonary venous congestion and moderate right pleural effusion. Right lower lobe airspace disease may represent compressive atelectasis versus pneumonia. Follow-up is advised. 3. Endotracheal tube terminates 4 cm proximal to the dario.
--- NOTE | 2018-06-26 15:06 | CP.PCM.PN ---
Subjective - Date & Time of Evaluation Date of Evaluation: 06/26/18 Objective - Vital Signs/Intake and Output Vital Signs (last 24 hours): Temp Pulse Resp BP Pulse Ox 97.5 F L 85 22 98/68 L 100 06/26/18 12:30 06/26/18 14:00 06/26/18 14:00 06/26/18 14:00 06/26/18 14:00 Intake and Output: 06/26/18 06/26/18 06:59 18:59 Intake Total 460 568.3 Output Total 700 Balance -240 568.3 - Medications Medications: Current Medications Acetaminophen (Tylenol 325mg Tab) 325 mg PO Q6H PRN PRN Reason: Pain, Mild (1-3) Al Hydrox/Mg Hydrox/Simethicone (Maalox Plus 30 Ml) 30 ml PO Q4H PRN PRN Reason: Heartburn Aspirin (Aspirin Chewable) 81 mg PO DAILY [facility] Last Admin: 06/24/18 09:15 Dose: 81 mg Carvedilol (Coreg) 3.125 mg PO BID [facility] Last Admin: 06/26/18 10:20 Dose: 3.125 mg Ferric Sodium Gluconate Complex (Ferrlecit) 125 mg IVPB DAILY [facility] Stop: 07/02/18 10:01 Last Admin: 06/26/18 10:24 Dose: 125 mg Furosemide (Lasix) 60 mg IVP Q12H [facility] Last Admin: 06/26/18 05:55 Dose: 60 mg Ceftaroline Fosamil 400 mg/ (Dextrose) 100 mls @ 100 mls/hr IVPB Q12H [facility]; Protocol Last Admin: 06/26/18 10:30 Dose: Not Given Phenylephrine HCl 30 mg/ (Sodium Chloride) 253 mls @ 10.12 mls/hr IV .Q24H PRN; Protocol PRN Reason: TITRATE PER MD ORDER Last Admin: 06/26/18 13:06 Dose: 20 mcg/min, 10.12 mls/hr Fentanyl Citrate 2,500 mcg/ (Sodium Chloride) 250 mls @ 24.11 mls/hr IV .[id number] PRN; Protocol PRN Reason: PER TITRATION Last Titration: 06/26/18 13:14 Dose: 1 mcg/kg/hr, 12.06 mls/hr Pantoprazole Sodium (Protonix Ec Tab) 40 mg PO DAILY [facility] Last Admin: 06/26/18 10:20 Dose: 40 mg Rosuvastatin Calcium (Crestor) 5 mg PO HS [facility] Last Admin: 06/25/18 22:10 Dose: Not Given Sacubitril/Valsartan (Entresto 24 Mg-26 Mg) 1 tab PO DAILY [facility] Last Admin: 06/25/18 09:35 Dose: 1 tab - Labs Labs: 06/25/18 09:08 06/25/18 09:08 PT 13.9 SECONDS (9.7-12.2) H 06/23/18 16:39 INR 1.3 06/23/18 16:39 APTT 41 SECONDS (21-34) H 06/23/18 16:39 - Constitutional Appears: Well - Head Exam Head Exam: ATRAUMATIC, NORMAL INSPECTION, NORMOCEPHALIC - Eye Exam Eye Exam: EOMI, Normal appearance, PERRL Pupil Exam: NORMAL ACCOMODATION, PERRL - ENT Exam ENT Exam: Mucous Membranes Moist, Normal Exam - Neck Exam Neck Exam: Full ROM, Normal Inspection. absent: Lymphadenopathy - Respiratory Exam Respiratory Exam: Decreased Breath Sounds - Cardiovascular Exam Cardiovascular Exam: REGULAR RHYTHM, +S1, +S2 - GI/Abdominal Exam GI & Abdominal Exam: Soft, Diminished Bowel Sounds - Rectal Exam Rectal Exam: Deferred - Neurological Exam Neurological Exam: Oriented x3 Assessment and Plan - Assessment and Plan (Free Text) Plan: vitals reviewed medications reviewed labs reviewed
[2018-06-26] MEDS: Enoxaparin 40 mg Syringe SC SCH (15:33)
[2018-06-26 16:26] LABS: SQUAMOUS EPITHIAL 1 /hpf (0-5); URINE BACTERIA RARE (<OCC); URINE BILIRUBIN NEGATIVE (NEGATIVE); URINE BLOOD 3+ (NEGATIVE); URINE CLARITY Hazy (Clear); URINE COLOR Amber (YELLOW); URINE GLUCOSE (UA) NORMAL (Normal); URINE HYALINE CAST >20 /lpf (0-2); URINE LEUKOCYTE ESTERASE 1+ Leu/uL (Negative); URINE PROTEIN 1+ mg/dL (NEGATIVE); URINE URIC ACID CRYSTALS OCC /hpf (<OCC); WBC CLUMPS FEW /hpf
[2018-06-26 16:36] LABS: ALBUMIN 3.4 g/dL (3.5-5.0); CALCIUM 8.1 mg/dl (8.6-10.4)
--- NOTE | 2018-06-26 18:48 | CP.PCM.CON ---
<Yoni Waters - Last Filed: 06/26/18 18:49> History of Present Illness - History of Present Illness History of Present Illness: PGY-1 Critical Care Consult Note for Dr. Wilks Patient is a 68 year old male with PMHx HTN, DM, cirrhosis, CHF, esophageal varices, for whom ICU was consulted for evaluation and management for respiratory distress. Patient underwent EGD this afternoon with GI for evaluation of anemia, rule out possible GI bleed. Following procedure, patient was found to be in acute respiratory distress. Patient was kept intubated and ICU consulted for stat evaluation. Patient was transferred to ICU and remained intubated and placed on vent. In ICU, patient also became hypotensive, but blood pressure resolved. History obtained per medical staff and medical records, and patient intubated/sedated. Further hx unable to be obtained as pt intubated/sedated Medical hx: As stated above Family hx: unable to be obtained at this time Social hx: unable to be obtained at this time Allergies: NKA per EMR Surgical hx: unable to be obtained at this time Review of Systems - Review of Systems Systems not reviewed;Unavailable: Intubated Past Patient History - Infectious Disease Hx of Infectious Diseases: None - Past Medical History & Family History Past Medical History?: Yes - Past Social History Smoking Status: Never Smoked - CARDIAC Hx Atrial Fibrillation: Yes Hx Congestive Heart Failure: Yes Hx Hypercholesterolemia: Yes Hx Hypertension: Yes Hx Pacemaker: Yes - PULMONARY Hx Chronic Obstructive Pulmonary Disease (COPD): Yes - NEUROLOGICAL Hx Neurological Disorder: No - HEENT Hx HEENT Problems: No - RENAL Hx Chronic Kidney Disease: No - ENDOCRINE/METABOLIC Hx Endocrine Disorders: Yes Hx Diabetes Mellitus Type 2: Yes - HEMATOLOGICAL/ONCOLOGICAL Hx Blood Disorders: No - INTEGUMENTARY Hx Dermatological Problems: Yes (lower leg ulcers) Other/Comment: MRSA of leg - MUSCULOSKELETAL/RHEUMATOLOGICAL Hx Arthritis: Yes Hx Falls: No - GASTROINTESTINAL Hx Pancreatitis: Yes - GENITOURINARY/GYNECOLOGICAL Hx Genitourinary Disorders: No - PSYCHIATRIC Hx Substance Use: No - SURGICAL HISTORY Hx Appendectomy: Yes - ANESTHESIA Hx Anesthesia: Yes Hx Anesthesia Reactions: No Hx Malignant Hyperthermia: No Meds Allergies/Adverse Reactions: Allergies Allergy/AdvReac Type Severity Reaction Status Date / Time No Known Allergies Allergy Verified 06/23/18 16:18 - Medications Medications: Current Medications Acetaminophen (Tylenol 325mg Tab) 325 mg PO Q6H PRN PRN Reason: Pain, Mild (1-3) Al Hydrox/Mg Hydrox/Simethicone (Maalox Plus 30 Ml) 30 ml PO Q4H PRN PRN Reason: Heartburn Aspirin (Aspirin Chewable) 81 mg PO DAILY [facility] Last Admin: 06/24/18 09:15 Dose: 81 mg Carvedilol (Coreg) 3.125 mg PO BID [facility] Last Admin: 06/26/18 17:17 Dose: Not Given Enoxaparin Sodium (Lovenox) 40 mg SC DAILY [facility] Last Admin: 06/26/18 15:33 Dose: 40 mg Ferric Sodium Gluconate Complex (Ferrlecit) 125 mg IVPB DAILY [facility] Stop: 07/02/18 10:01 Last Admin: 06/26/18 10:24 Dose: 125 mg Furosemide (Lasix) 60 mg IVP DAILY [facility] Ceftaroline Fosamil 400 mg/ (Dextrose) 100 mls @ 100 mls/hr IVPB Q12H [facility]; Protocol Last Admin: 06/26/18 10:30 Dose: Not Given Phenylephrine HCl 30 mg/ (Sodium Chloride) 253 mls @ 10.12 mls/hr IV .Q24H PRN; Protocol PRN Reason: TITRATE PER MD ORDER Last Admin: 06/26/18 13:06 Dose: 20 mcg/min, 10.12 mls/hr Fentanyl Citrate 2,500 mcg/ (Sodium Chloride) 250 mls @ 24.11 mls/hr IV .[id number] PRN; Protocol PRN Reason: PER TITRATION Last Admin: 06/26/18 17:51 Dose: 5 mcg/kg/hr, 60.28 mls/hr Lorazepam (Ativan) 1 mg IVP Q4H PRN PRN Reason: Anxiety Last Admin: 06/26/18 15:16 Dose: 1 mg Pantoprazole Sodium (Protonix Ec Tab) 40 mg PO DAILY [facility] Last Admin: 06/26/18 10:20 Dose: 40 mg Rosuvastatin Calcium (Crestor) 5 mg PO HS [facility] Last Admin: 06/25/18 22:10 Dose: Not Given Sacubitril/Valsartan (Entresto 24 Mg-26 Mg) 1 tab PO DAILY [facility] Last Admin: 06/25/18 09:35 Dose: 1 tab Physical Exam - Constitutional Appears: In Acute Distress - Head Exam Head Exam: ATRAUMATIC, NORMOCEPHALIC - Eye Exam Eye Exam: EOMI, Normal appearance - ENT Exam ENT Exam: Mucous Membranes Moist - Respiratory Exam Respiratory Exam: Decreased Breath Sounds Additional comments: intubated, on vent - Cardiovascular Exam Cardiovascular Exam: REGULAR RHYTHM, +S1, +S2 - GI/Abdominal Exam GI & Abdominal Exam: Normal Bowel Sounds, Soft. absent: Tenderness - Extremities Exam Extremities exam: Positive for: normal inspection. Negative for: pedal edema, tenderness - Neurological Exam Additional comments: Sedated - Skin Skin Exam: Dry, Intact Results - Vital Signs Recent Vital Signs: Last Vital Signs Temp 97.4 F L 06/26/18 16:00 Pulse 86 06/26/18 18:25 Resp 14 06/26/18 18:25 BP 84/60 L 06/26/18 18:25 Pulse Ox 96 06/26/18 18:25 - Labs Result Diagrams: 06/25/18 09:08 06/26/18 16:17 Labs: Laboratory Results - last 24 hr 06/24/18 06/25/18 06/25/18 19:50 15:04 21:37 D-Dimer, Quantitative Sodium Potassium Chloride Carbon Dioxide Anion Gap BUN Creatinine Est GFR ( Amer) Est GFR (Non-Af Amer) POC Glucose (mg/dL) Random Glucose Calcium Phosphorus Magnesium Total Bilirubin AST ALT Alkaline Phosphatase Troponin I Total Protein Albumin Globulin Albumin/Globulin Ratio Free PSA 0.4 % Free PSA 80 Total PSA 0.5 Urine Color Urine Clarity Urine pH Ur Specific [place] Urine Protein Urine Glucose (UA) Urine Ketones Urine Blood Urine Nitrate Urine Bilirubin Urine Urobilinogen Ur Leukocyte Esterase Urine WBC (Auto) Urine RBC (Auto) Urine WBC Clumps (Auto) Ur Squamous Epith Cells Uric Acid Crystals Urine Bacteria Hyaline Casts U Random Total Protein 255 H Ur Random Sodium 89 06/26/18 06/26/18 06/26/18 11:43 15:43 15:43 D-Dimer, Quantitative 828 H Sodium Potassium Chloride Carbon Dioxide Anion Gap BUN Creatinine Est GFR ( Amer) Est GFR (Non-Af Amer) POC Glucose (mg/dL) 127 H Random Glucose Calcium Phosphorus Magnesium Total Bilirubin AST ALT Alkaline Phosphatase Troponin I 0.3490 H* Total Protein Albumin Globulin Albumin/Globulin Ratio Free PSA % Free PSA Total PSA Urine Color Urine Clarity Urine pH Ur Specific [place] Urine Protein Urine Glucose (UA) Urine Ketones Urine Blood Urine Nitrate Urine Bilirubin Urine Urobilinogen Ur Leukocyte Esterase Urine WBC (Auto) Urine RBC (Auto) Urine WBC Clumps (Auto) Ur Squamous Epith Cells Uric Acid Crystals Urine Bacteria Hyaline Casts U Random Total Protein Ur Random Sodium 06/26/18 06/26/18 06/26/18 16:17 16:17 17:29 D-Dimer, Quantitative Sodium 136 Potassium 4.6 Chloride 95 L Carbon Dioxide 36 H Anion Gap 9 L BUN 25 H Creatinine 2.1 H Est GFR ( Amer) 38 Est GFR (Non-Af Amer) 32 POC Glucose (mg/dL) 77 Random Glucose 79 Calcium 8.1 L Phosphorus 3.6 Magnesium 2.0 Total Bilirubin 1.0 AST 31 ALT 10 L Alkaline Phosphatase 111 Troponin I Total Protein 6.9 Albumin 3.4 L Globulin 3.4 Albumin/Globulin Ratio 1.0 Free PSA % Free PSA Total PSA Urine Color Bernie Urine Clarity Hazy Urine pH 6.0 Ur Specific [place] 1.011 Urine Protein 1+ H Urine Glucose (UA) Normal Urine Ketones Negative Urine Blood 3+ H Urine Nitrate Negative Urine Bilirubin Negative Urine Urobilinogen 2.0 Ur Leukocyte Esterase 1+ H Urine WBC (Auto) 27 H Urine RBC (Auto) 631 H Urine WBC Clumps (Auto) Few H Ur Squamous Epith Cells 1 Uric Acid Crystals Occ H Urine Bacteria Rare Hyaline Casts >20 H U Random Total Protein Ur Random Sodium Assessment & Plan - Assessment and Plan (Free Text) Assessment: Patient is a 68 year old male with PMHx HTN, DM, cirrhosis, esophageal varices presents in acute respiratory distress s/p EGD and became acutely hypotensive. Pulmonary -Intubated, on vent support -Maintain adequate ventilation and saturation -Vent with plan to wean -Fentanyl, ativan prn for sedation Cardiovascular -ICU BP monitoring -C/w CHF meds --Coreg, Valsartan/Sacubitiril, Crestor GI -GI on consult -Monitor for signs of GI bleed -Trend H and H -Protonix 40 mg PO daily DM -ISS -Hypoglycemia protocol Heme Anemia -Monitor H and H -Monitor for symptoms of acute anemia -Transfuse as needed PPx -DVT: Lovenox 40 SC daily -GI: Protonix 40 PO daily -ETT on vent Assessment and plan d/w Dr. Lashaun Waters, PGY-1 <[email or web address] M - Last Filed: 06/30/18 20:42> Results - Vital Signs Recent Vital Signs: Last Vital Signs Temp 97.5 F L 06/28/18 00:00 Pulse 77 06/28/18 04:00 Resp 20 06/28/18 04:00 BP 71/39 L 06/28/18 03:24 Pulse Ox 61 L 06/28/18 02:51 - Labs Result Diagrams: 06/27/18 06:15 06/27/18 06:15 Attending/Attestation - Attestation I have personally seen and examined this patient.: Yes I have fully participated in the care of the patient.: Yes I have reviewed all pertinent clinical information: Yes Notes (Text): 06/26/18 Today: , June 26, 2018 The Patient was seen and examined at the bedside, Medical records reviewed, and management issues were discussed and formulated with the house staff. I have reviewed all the relevant clinical, laboratory, hemodynamic, radiographic data and medications Events reviewed Pain issues, skin care, head of the bed elevation, glycemic control were addressed. Agree with above resident's assessment and treatment plans of care as transcribed in Dr. Waters's note. Patient transferred from the endoscopy suite due to acute respiratory failure with hypoxemia, and he was intubated and mechanically ventilated Patient is multiple medical condition including Arthritis, Atrial Fibrillation, CHF, COPD, Diabetes, HTN, Hypercholesterolemia, Pancreatitis Now with renal insufficiency and sepsis Patient remain hypoxemic, requiring high FiO2 support Continue current management, diuresis antibiotics, full vent support, wean off FiO2 as possible Echocardiogram to rule out hepatopulmonary sydrome Vasopressor support to maintain map above 65 Prognosis is guarded Total critical care time 43 minutes
--- NOTE | 2018-06-26 20:04 | CP.PCM.PN ---
Subjective - Date & Time of Evaluation Date of Evaluation: 06/25/18 Time of Evaluation: 12:00 - Subjective Subjective: No complaints. Objective - Vital Signs/Intake and Output Vital Signs (last 24 hours): Temp Pulse Resp BP Pulse Ox 97.4 F L 77 14 73/49 L 89 L 06/26/18 16:00 06/26/18 19:26 06/26/18 19:26 06/26/18 19:26 06/26/18 19:26 Intake and Output: 06/26/18 06/27/18 18:59 06:59 Intake Total 1293.1 56.2 Output Total 95 20 Balance 1198.1 36.2 - Medications Medications: Current Medications Acetaminophen (Tylenol 325mg Tab) 325 mg PO Q6H PRN PRN Reason: Pain, Mild (1-3) Al Hydrox/Mg Hydrox/Simethicone (Maalox Plus 30 Ml) 30 ml PO Q4H PRN PRN Reason: Heartburn Aspirin (Aspirin Chewable) 81 mg PO DAILY [facility] Last Admin: 06/24/18 09:15 Dose: 81 mg Carvedilol (Coreg) 3.125 mg PO BID [facility] Last Admin: 06/26/18 17:17 Dose: Not Given Enoxaparin Sodium (Lovenox) 40 mg SC DAILY [facility] Last Admin: 06/26/18 15:33 Dose: 40 mg Ferric Sodium Gluconate Complex (Ferrlecit) 125 mg IVPB DAILY [facility] Stop: 07/02/18 10:01 Last Admin: 06/26/18 10:24 Dose: 125 mg Furosemide (Lasix) 60 mg IVP DAILY [facility] Ceftaroline Fosamil 400 mg/ (Dextrose) 100 mls @ 100 mls/hr IVPB Q12H [facility]; Protocol Last Admin: 06/26/18 10:30 Dose: Not Given Phenylephrine HCl 30 mg/ (Sodium Chloride) 253 mls @ 10.12 mls/hr IV .Q24H PRN; Protocol PRN Reason: TITRATE PER MD ORDER Last Titration: 06/26/18 18:55 Dose: 50 mcg/min, 25.3 mls/hr Fentanyl Citrate 2,500 mcg/ (Sodium Chloride) 250 mls @ 24.11 mls/hr IV .[id number] PRN; Protocol PRN Reason: PER TITRATION Last Titration: 06/26/18 18:53 Dose: 2 mcg/kg/hr, 24.11 mls/hr Lorazepam (Ativan) 1 mg IVP Q4H PRN PRN Reason: Anxiety Last Admin: 06/26/18 15:16 Dose: 1 mg Pantoprazole Sodium (Protonix Ec Tab) 40 mg PO DAILY [facility] Last Admin: 06/26/18 10:20 Dose: 40 mg Rosuvastatin Calcium (Crestor) 5 mg PO HS [facility] Last Admin: 06/25/18 22:10 Dose: Not Given Sacubitril/Valsartan (Entresto 24 Mg-26 Mg) 1 tab PO DAILY [facility] Last Admin: 06/25/18 09:35 Dose: 1 tab - Labs Labs: 06/25/18 09:08 06/26/18 16:17 PT 13.9 SECONDS (9.7-12.2) H 06/23/18 16:39 INR 1.3 06/23/18 16:39 APTT 41 SECONDS (21-34) H 06/23/18 16:39 - Head Exam Head Exam: ATRAUMATIC - Eye Exam Eye Exam: Normal appearance - ENT Exam ENT Exam: Mucous Membranes Dry - Respiratory Exam Respiratory Exam: Decreased Breath Sounds - Cardiovascular Exam Cardiovascular Exam: +S1, +S2 - GI/Abdominal Exam GI & Abdominal Exam: Normal Bowel Sounds Assessment and Plan (1) Anemia Assessment & Plan: iron deficiency anemia GI w/u in progress s/p PRBC transfusion on IV iron Status: Acute
--- NOTE | 2018-06-26 20:05 | CP.PCM.PN ---
Subjective - Date & Time of Evaluation Date of Evaluation: 06/26/18 Time of Evaluation: 19:00 - Subjective Subjective: Vented, seen in ICU Objective - Vital Signs/Intake and Output Vital Signs (last 24 hours): Temp Pulse Resp BP Pulse Ox 97.4 F L 77 14 73/49 L 89 L 06/26/18 16:00 06/26/18 19:26 06/26/18 19:26 06/26/18 19:26 06/26/18 19:26 Intake and Output: 06/26/18 06/27/18 18:59 06:59 Intake Total 1293.1 56.2 Output Total 95 20 Balance 1198.1 36.2 - Medications Medications: Current Medications Acetaminophen (Tylenol 325mg Tab) 325 mg PO Q6H PRN PRN Reason: Pain, Mild (1-3) Al Hydrox/Mg Hydrox/Simethicone (Maalox Plus 30 Ml) 30 ml PO Q4H PRN PRN Reason: Heartburn Aspirin (Aspirin Chewable) 81 mg PO DAILY [facility] Last Admin: 06/24/18 09:15 Dose: 81 mg Carvedilol (Coreg) 3.125 mg PO BID [facility] Last Admin: 06/26/18 17:17 Dose: Not Given Enoxaparin Sodium (Lovenox) 40 mg SC DAILY [facility] Last Admin: 06/26/18 15:33 Dose: 40 mg Ferric Sodium Gluconate Complex (Ferrlecit) 125 mg IVPB DAILY [facility] Stop: 07/02/18 10:01 Last Admin: 06/26/18 10:24 Dose: 125 mg Furosemide (Lasix) 60 mg IVP DAILY [facility] Ceftaroline Fosamil 400 mg/ (Dextrose) 100 mls @ 100 mls/hr IVPB Q12H [facility]; Protocol Last Admin: 06/26/18 10:30 Dose: Not Given Phenylephrine HCl 30 mg/ (Sodium Chloride) 253 mls @ 10.12 mls/hr IV .Q24H PRN; Protocol PRN Reason: TITRATE PER MD ORDER Last Titration: 06/26/18 18:55 Dose: 50 mcg/min, 25.3 mls/hr Fentanyl Citrate 2,500 mcg/ (Sodium Chloride) 250 mls @ 24.11 mls/hr IV .[id number] PRN; Protocol PRN Reason: PER TITRATION Last Titration: 06/26/18 18:53 Dose: 2 mcg/kg/hr, 24.11 mls/hr Lorazepam (Ativan) 1 mg IVP Q4H PRN PRN Reason: Anxiety Last Admin: 06/26/18 15:16 Dose: 1 mg Pantoprazole Sodium (Protonix Ec Tab) 40 mg PO DAILY [facility] Last Admin: 06/26/18 10:20 Dose: 40 mg Rosuvastatin Calcium (Crestor) 5 mg PO HS [facility] Last Admin: 06/25/18 22:10 Dose: Not Given Sacubitril/Valsartan (Entresto 24 Mg-26 Mg) 1 tab PO DAILY [facility] Last Admin: 06/25/18 09:35 Dose: 1 tab - Labs Labs: 06/25/18 09:08 06/26/18 16:17 PT 13.9 SECONDS (9.7-12.2) H 06/23/18 16:39 INR 1.3 06/23/18 16:39 APTT 41 SECONDS (21-34) H 06/23/18 16:39 - Head Exam Head Exam: ATRAUMATIC - Eye Exam Eye Exam: Normal appearance - ENT Exam ENT Exam: Mucous Membranes Dry - Respiratory Exam Respiratory Exam: Decreased Breath Sounds - Cardiovascular Exam Cardiovascular Exam: +S1, +S2 - GI/Abdominal Exam GI & Abdominal Exam: Normal Bowel Sounds Assessment and Plan (1) Anemia Assessment & Plan: iron deficiency anemia GI w/u s/p PRBC transfusion on IV iron repeat CBC Status: Acute
[2018-06-26 20:54] LABS: ARTERIAL BLOOD GAS HCO3 28.8 mmol/L (21-28); ARTERIAL BLOOD GAS O2 SAT 89.3 % (95-98); ARTERIAL BLOOD GAS PCO2 63 mm/Hg (35-45); ARTERIAL BLOOD GAS PH 7.33 (7.35-7.45); ARTERIAL BLOOD GAS PO2 56 mm/Hg (80-100); ARTERIAL BLOOD GAS TCO2 35.1 mmol/L (22-28)
--- NOTE | 2018-06-26 21:31 | CP.PCM.PN ---
Subjective - Date & Time of Evaluation Date of Evaluation: 06/26/18 Time of Evaluation: 15:00 - Subjective Subjective: dictated Objective - Vital Signs/Intake and Output Vital Signs (last 24 hours): Temp Pulse Resp BP Pulse Ox 97.4 F L 77 14 73/49 L 89 L 06/26/18 16:00 06/26/18 19:26 06/26/18 19:26 06/26/18 19:26 06/26/18 19:26 Intake and Output: 06/26/18 06/27/18 18:59 06:59 Intake Total 1293.1 86.2 Output Total 95 20 Balance 1198.1 66.2 - Medications Medications: Current Medications Acetaminophen (Tylenol 325mg Tab) 325 mg PO Q6H PRN PRN Reason: Pain, Mild (1-3) Al Hydrox/Mg Hydrox/Simethicone (Maalox Plus 30 Ml) 30 ml PO Q4H PRN PRN Reason: Heartburn Aspirin (Aspirin Chewable) 81 mg PO DAILY [facility] Last Admin: 06/24/18 09:15 Dose: 81 mg Carvedilol (Coreg) 3.125 mg PO BID [facility] Last Admin: 06/26/18 17:17 Dose: Not Given Enoxaparin Sodium (Lovenox) 40 mg SC DAILY [facility] Last Admin: 06/26/18 15:33 Dose: 40 mg Ferric Sodium Gluconate Complex (Ferrlecit) 125 mg IVPB DAILY [facility] Stop: 07/02/18 10:01 Last Admin: 06/26/18 10:24 Dose: 125 mg Furosemide (Lasix) 60 mg IVP DAILY [facility] Ceftaroline Fosamil 400 mg/ (Dextrose) 100 mls @ 100 mls/hr IVPB Q12H [facility]; Protocol Last Admin: 06/26/18 10:30 Dose: Not Given Phenylephrine HCl 30 mg/ (Sodium Chloride) 253 mls @ 10.12 mls/hr IV .Q24H PRN; Protocol PRN Reason: TITRATE PER MD ORDER Last Titration: 06/26/18 19:45 Dose: 100 mcg/min, 50.6 mls/hr Fentanyl Citrate 2,500 mcg/ (Sodium Chloride) 250 mls @ 24.11 mls/hr IV .[id number] PRN; Protocol PRN Reason: PER TITRATION Last Titration: 06/26/18 19:45 Dose: 1 mcg/kg/hr, 12.06 mls/hr Lorazepam (Ativan) 1 mg IVP Q4H PRN PRN Reason: Anxiety Last Admin: 06/26/18 15:16 Dose: 1 mg Pantoprazole Sodium (Protonix Ec Tab) 40 mg PO DAILY [facility] Last Admin: 06/26/18 10:20 Dose: 40 mg Rosuvastatin Calcium (Crestor) 5 mg PO HS [facility] Last Admin: 06/25/18 22:10 Dose: Not Given Sacubitril/Valsartan (Entresto 24 Mg-26 Mg) 1 tab PO DAILY [facility] Last Admin: 06/25/18 09:35 Dose: 1 tab - Labs Labs: 06/25/18 09:08 06/26/18 16:17 PT 13.9 SECONDS (9.7-12.2) H 06/23/18 16:39 INR 1.3 06/23/18 16:39 APTT 41 SECONDS (21-34) H 06/23/18 16:39
[2018-06-27] MEDS ORDERED: Dextrose 50% SYRINGE Inj (50 ml) IV STA ×3 (00:38→17:54)
--- NOTE | 2018-06-27 01:21 | PN ---
DATE: 06/26/2018 INFECTIOUS DISEASE FOLLOWUP SUBJECTIVE: The patient was seen today. He is intubated. He had respiratory distress after undergoing EGD and he was being evaluated for anemia for possible GI bleed as he came with a low hemoglobin of 7. The patient is intubated and he is in ICU. The patient also became hypotensive at the time when he had respiratory distress. He is transferred to ICU. I saw him in ICU. He was unresponsive, intubated. PHYSICAL EXAMINATION: VITAL SIGNS: T-max when I saw was 97.4, pulse 84, blood pressure was 89/61, respirations are 18 on the ventilator, oxygen saturation was 97. HEAD: Atraumatic, normocephalic. NECK: Supple. LUNGS: Clear, decreased breath sounds on bases. HEART: S1, S2 present. Regular. ABDOMEN: Remains distended. He has massive ascites. EXTREMITIES: Bilateral edema. He has ulcerations both sides and he has left arm PICC line present. He has been on Teflaro because he had MRSA before. He was admitted with severe anemia and he also has renal insufficiency. LABORATORY DATA: His labs yesterday shows white count of 6.6, hemoglobin 8.1. I do not see any SGPT. D-dimers are 828, done today. Serology was HIV negative. Hepatitis profile is negative. Vancomycin random was 20.2 on 06/24/2018. His creatinine today was 2.1, sodium 136, potassium 4.6, chloride 95, CO2 is 36, anion gap was 9 and troponin is 0.3 . ASSESSMENT AND PLAN: He has severe cardiomyopathy and also ascites, anemia, has methicillin-resistant Staphylococcus aureus related leg ulcerations. They are hard to heal because he developed edema on both lower extremities. He is on ventilator. I would renew Teflaro at this time. We will follow. Yue Guillen MD
[2018-06-27] MEDS: Phenylephrine 30 MG in Sodium Chloride 0.9% 250 ML IV PRN ×4 (03:53→20:12)
[2018-06-27 05:46] LABS: ABG ALLEN TEST POS; ARTERIAL BLOOD GAS HEMOGLOBIN 8.7 g/dL (11.7-17.4); ARTERIAL BLOOD GAS O2 SAT 99.1 % (95-98); ARTERIAL BLOOD GAS PCO2 49 mm/Hg (35-45); ARTERIAL BLOOD GAS PH 7.42 (7.35-7.45); ARTERIAL BLOOD GAS PO2 95 mm/Hg (80-100); ARTERIAL BLOOD GAS TCO2 33.3 mmol/L (22-28)
[2018-06-27] MEDS ORDERED: Glucagon Recombinant 1 mg Inj IM STA ×2 (05:49→05:55)
[2018-06-27 06:23] LABS: BASO % 0.4 % (0.0-2.0); EOS # 0.1 K/uL (0.0-0.7); EOS % 0.8 % (0.0-4.0); HEMOGLOBIN 8.7 g/dL (12.0-18.0); LYMPH # 0.7 K/uL (1.0-4.3); LYMPH % 8.3 % (20.0-40.0); MEAN CELL VOLUME 84.4 fL (80.0-94.0); MEAN CORPUSCULAR HEMOGLOBIN 26.2 pg (27.0-31.0); MEAN PLATELET VOLUME 8.1 fL (7.2-11.7); MONO # 1.6 K/uL (0.0-0.8); MONO % 17.9 % (0.0-10.0); NEUT # 6.4 K/uL (1.8-7.0); NEUT % 72.6 % (50.0-75.0); NRBC % 3.4 % (0.0-2.0); PLATELET COUNT 231 K/uL (130-400); RBC 3.31 Mil/uL (4.40-5.90); RED CELL DISTRIBUTION WIDTH 22.7 % (11.5-14.5); WHITE BLOOD COUNT 8.8 K/uL (4.8-10.8)
[2018-06-27 07:02] LABS: ALBUMIN 3.6 g/dL (3.5-5.0); ALT/SGPT < 6 U/L (21-72); AST/SGOT 44 U/L (17-59); BLOOD UREA NITROGEN 31 mg/dL (9-20); CALCIUM 8.2 mg/dl (8.6-10.4); GFR NON-AFRICAN AMERICAN 27
--- NOTE | 2018-06-27 08:41 | RAD ---
Date of service: 06/27/2018 HISTORY: ETT COMPARISON: Comparison chest 06/23/2818. TECHNIQUE: 1 view obtained. FINDINGS: In situ ETT, tip of which lies approximately 5.4 cm above dario. Right-sided PICC line with tip in the SVC new since prior study LUNGS: Bilateral effusions with suspected bibasilar atelectasis and/or infiltrates. . The central pulmonary vasculature is slightly increased; rule out mild chronic compensated pulmonary venous congestion. PLEURA: As above. No pneumothorax apparent. CARDIOVASCULAR: No aortic atherosclerotic calcification present. Cardiomegaly. OSSEOUS STRUCTURES: No significant abnormalities. VISUALIZED UPPER ABDOMEN: Normal. OTHER FINDINGS: None. IMPRESSION: In situ ETT as above. Bilateral effusions with suspected bibasilar atelectasis and/or infiltrates. . The central pulmonary vasculature is slightly increased; rule out mild chronic compensated pulmonary venous congestion.
[2018-06-27 08:42] LABS: ANISOCYTOSIS SLIGHT; EOSINOPHIL 1 % (0-4); LYMPHOCYTE 6 % (20-40); MONOCYTE 21 % (0-10); NEUTROPHIL 72 % (50-75); NUCLEATED RED BLOOD CELL 2 % (0-0); PLATELET ESTIMATE NORMAL (NORMAL); POIKILOCYTOSIS SLIGHT; TOTAL CELLS COUNTED 100
[2018-06-27 08:43] LABS: MICROCYTOSIS SLIGHT
[2018-06-27 08:44] LABS: HYPOCHROMIC MODERATE; OVALOCYTES SLIGHT; POLYCHROMIC SLIGHT; TARGET CELLS SLIGHT; TEARDROP CELLS SLIGHT
[2018-06-27 08:45] LABS: LARGE PLATELETS PRESENT
--- NOTE | 2018-06-27 08:51 | CP.CCUPN ---
<Yoni Waters - Last Filed: 06/27/18 12:43> CCU Subjective - Physician Review Subjective (Free Text): 06/27/18 08:50 PGY-1 Critical Care Progress Note for Dr. Lopez Patient seen and examined at bedside. No acute events overnight. Patient remains intubated, on vent. ROS unable to be obtained. Will continue to monitor. CCU Objective - Vital Signs / Intake & Output Vital Signs (Last 4 hours): Vital Signs Temp Pulse Resp BP Pulse Ox 06/27/18 08:45 107/56 L 06/27/18 08:02 79 20 107/56 L 95 06/27/18 08:00 97.7 F 83 20 93 L 06/27/18 07:02 85 17 124/74 100 06/27/18 07:00 84 21 100 06/27/18 06:02 84 19 128/76 100 06/27/18 06:00 82 20 100 06/27/18 05:02 83 20 115/71 100 06/27/18 05:00 72 20 100 Intake and Output (Last 8hrs): Intake & Output 06/26/18 06/27/18 06/27/18 22:59 06:59 14:59 Intake Total 1109.0 749 377 Output Total 165 55 0 Balance 944.0 694 377 Intake: IV 553 253 253 Intake, IV Amount 556.0 496 124 Right Distal Port PICC 281.0 96 24 Right Proximal Port PICC 275 400 100 Output: Urine 165 55 0 Urethral (Mccall) 165 55 0 - Physical Exam Head: Positive for: Atraumatic, Normocephalic Pupils: Positive for: PERRL Extroacular Muscles: Positive for: EOMI Mouth: Positive for: Moist Mucous Membranes Respiratory/Chest: Positive for: Clear to Auscultation, Other (intubated, on vent) Cardiovascular: Positive for: Regular Rate and Rhythm, Normal S1, S2 Abdomen: Positive for: Normal Bowel Sounds. Negative for: Tenderness, Distention Neurological: Positive for: Other (sedated) Skin: Positive for: Warm, Dry, Normal Color - Medications Active Medications: Active Medications Generic Name Dose Route Start Last Admin Trade Name Freq PRN Reason Stop Dose Admin Acetaminophen 325 mg 06/23/18 21:38 Tylenol 325mg Tab PO Q6H PRN Pain, Mild (1-3) Al Hydrox/Mg Hydrox/Simethicone 30 ml 06/23/18 21:38 Maalox Plus 30 Ml PO Q4H PRN Heartburn Aspirin 81 mg 06/24/18 10:00 06/24/18 09:15 Aspirin Chewable PO 81 mg DAILY KAYLEEN Administration Carvedilol 3.125 mg 06/24/18 10:00 06/26/18 17:17 Coreg PO Not Given BID KAYLEEN Enoxaparin Sodium 40 mg 06/26/18 15:30 06/26/18 15:33 Lovenox SC 40 mg DAILY KAYLEEN Administration Ferric Sodium Gluconate Complex 125 mg 06/24/18 10:00 06/26/18 10:24 Ferrlecit IVPB 07/02/18 10:01 125 mg DAILY KAYLEEN Administration Furosemide 60 mg 06/27/18 10:00 Lasix IVP DAILY KAYLEEN Ceftaroline Fosamil 400 mg/ 100 mls @ 100 mls/hr 06/23/18 22:00 06/26/18 22:27 Dextrose IVPB 100 mls/hr Q12H KAYLEEN Administration Protocol Phenylephrine HCl 30 mg/ 253 mls @ 10.12 mls/hr 06/26/18 12:36 06/27/18 08:45 Sodium Chloride IV 100 mcg/min .Q24H PRN 50.6 mls/hr TITRATE PER MD ORDER Administration Protocol 20 MCG/MIN Fentanyl Citrate 2,500 mcg/ 250 mls @ 24.11 mls/hr 06/26/18 12:45 06/26/18 19:45 Sodium Chloride IV 1 mcg/kg/hr .[id number] PRN 12.06 mls/hr PER TITRATION Titration Protocol 2 MCG/KG/HR Lorazepam 1 mg 06/26/18 15:09 06/27/18 06:38 Ativan IVP 1 mg Q4H PRN Administration Anxiety Pantoprazole Sodium 40 mg 06/24/18 10:00 06/26/18 10:20 Protonix Ec Tab PO 40 mg DAILY KAYLEEN Administration Rosuvastatin Calcium 5 mg 06/23/18 22:00 06/26/18 22:20 Crestor PO Not Given HS KAYLEEN Sacubitril/Valsartan 1 tab 06/24/18 10:00 06/25/18 09:35 Entresto 24 Mg-26 Mg PO 1 tab DAILY KAYLEEN Administration - Patient Studies Lab Studies: Microbiology Studies 06/25/18 09:08 Urine Culture - Final Urine,Catheterized No Growth (<1,000 CFU/ML) Lab Studies 06/27/18 06/27/18 06/27/18 Range/Units 07:54 06:15 06:15 WBC 8.8 (4.8-10.8) K/uL RBC 3.31 L (4.40-5.90) Mil/uL Hgb 8.7 L (12.0-18.0) g/dL Hct 27.9 L (35.0-51.0) % MCV 84.4 (80.0-94.0) fL MCH 26.2 L (27.0-31.0) pg MCHC 31.0 L (33.0-37.0) g/dL RDW 22.7 H (11.5-14.5) % Plt Count 231 (130-400) K/uL MPV 8.1 (7.2-11.7) fL Neut % (Auto) 72.6 (50.0-75.0) % Lymph % (Auto) 8.3 L (20.0-40.0) % Newton % (Auto) 17.9 H (0.0-10.0) % Eos % (Auto) 0.8 (0.0-4.0) % Baso % (Auto) 0.4 (0.0-2.0) % Neut # (Auto) 6.4 (1.8-7.0) K/uL Lymph # (Auto) 0.7 L (1.0-4.3) K/uL Newton # (Auto) 1.6 H (0.0-0.8) K/uL Eos # (Auto) 0.1 (0.0-0.7) K/uL Baso # (Auto) 0.0 (0.0-0.2) K/uL Neutrophils % (Manual) 72 (50-75) % Lymphocytes % (Manual) 6 L (20-40) % Monocytes % (Manual) 21 H (0-10) % Eosinophils % (Manual) 1 (0-4) % Nucleated RBC % 2 H (0-0) % Platelet Estimate Normal (NORMAL) Large Platelets Present Polychromasia Slight Hypochromasia (manual) Moderate Poikilocytosis (manual Slight Anisocytosis (manual) Slight Microcytosis (manual) Slight Macrocytosis (manual) Slight Target Cells Slight Tear Drop Cells Slight Ovalocytes Slight D-Dimer, Quantitative (0-243) ng/mlDDU Puncture Site pCO2 (35-45) mm/Hg pO2 (80-100) mm/Hg HCO3 (21-28) mmol/L ABG pH (7.35-7.45) ABG Total CO2 (22-28) mmol/L ABG O2 Saturation (95-98) % ABG Base Excess (-2.0-3.0) mmol/L ABG Hemoglobin (11.7-17.4) g/dL ABG Carboxyhemoglobin (0.5-1.5) % POC ABG HHb (Measured) (0.0-5.0) % ABG Methemoglobin (0.0-3.0) % Bertin Test ABG Potassium (3.6-5.2) mmol/L A-a O2 Difference mm/Hg Respiratory Index Hgb O2 Saturation (95.0-98.0) % Glucose (75-110) mg/dl Lactate (0.7-2.1) mmol/L Vent Mode Mechanical Rate FiO2 % Tidal Volume PEEP Sodium 134 (132-148) mmol/L Potassium 4.6 (3.6-5.2) mmol/L Chloride 95 L (98-107) mmol/L Carbon Dioxide 33 H (22-30) mmol/L Anion Gap 11 (10-20) BUN 31 H (9-20) mg/dL Creatinine 2.4 H (0.8-1.5) mg/dL Est GFR ( Amer) 33 Est GFR (Non-Af Amer) 27 POC Glucose (mg/dL) 127 H (65-110) mg/dL Random Glucose 53 L D (75-110) mg/dL Calcium 8.2 L (8.6-10.4) mg/dl Phosphorus 3.5 (2.5-4.5) mg/dL Magnesium 2.0 (1.6-2.3) mg/dL Total Bilirubin 1.2 (0.2-1.3) mg/dL AST 44 (17-59) U/L ALT < 6 L D (21-72) U/L Alkaline Phosphatase 119 (38-126) U/L Troponin I (0.00-0.120) ng/mL Total Protein 7.1 (6.3-8.3) g/dL Albumin 3.6 (3.5-5.0) g/dL Globulin 3.5 (2.2-3.9) gm/dL Albumin/Globulin Ratio 1.0 (1.0-2.1) Free PSA ng/mL % Free PSA (>25) % (calc) Total PSA (< or = 4.0) ng/mL Arterial Blood Potassium (3.6-5.2) mmol/L Urine Color (YELLOW) Urine Clarity (Clear) Urine pH (5.0-8.0) Ur Specific [place] (1.003-1.030) Urine Protein (NEGATIVE) mg/dL Urine Glucose (UA) (Normal) mg/dL Urine Ketones (NEGATIVE) mg/dL Urine Blood (NEGATIVE) Urine Nitrate (NEGATIVE) Urine Bilirubin (NEGATIVE) Urine Urobilinogen (0.2-1.0) mg/dL Ur Leukocyte Esterase (Negative) Kathe/uL Urine WBC (Auto) (0-5) /hpf Urine RBC (Auto) (0-3) /hpf Urine WBC Clumps (Auto) (NONE) /hpf Ur Squamous Epith Cells (0-5) /hpf Uric Acid Crystals (<OCC) /hpf Urine Bacteria (<OCC) Hyaline Casts (0-2) /lpf Ur Random Sodium mmol/L 06/27/18 06/27/18 06/27/18 Range/Units 05:44 05:40 05:24 WBC (4.8-10.8) K/uL RBC (4.40-5.90) Mil/uL Hgb (12.0-18.0) g/dL Hct (35.0-51.0) % MCV (80.0-94.0) fL MCH (27.0-31.0) pg MCHC (33.0-37.0) g/dL RDW (11.5-14.5) % Plt Count (130-400) K/uL MPV (7.2-11.7) fL Neut % (Auto) (50.0-75.0) % Lymph % (Auto) (20.0-40.0) % Newton % (Auto) (0.0-10.0) % Eos % (Auto) (0.0-4.0) % Baso % (Auto) (0.0-2.0) % Neut # (Auto) (1.8-7.0) K/uL Lymph # (Auto) (1.0-4.3) K/uL Newton # (Auto) (0.0-0.8) K/uL Eos # (Auto) (0.0-0.7) K/uL Baso # (Auto) (0.0-0.2) K/uL Neutrophils % (Manual) (50-75) % Lymphocytes % (Manual) (20-40) % Monocytes % (Manual) (0-10) % Eosinophils % (Manual) (0-4) % Nucleated RBC % (0-0) % Platelet Estimate (NORMAL) Large Platelets Polychromasia Hypochromasia (manual) Poikilocytosis (manual Anisocytosis (manual) Microcytosis (manual) Macrocytosis (manual) Target Cells Tear Drop Cells Ovalocytes D-Dimer, Quantitative (0-243) ng/mlDDU Puncture Site Rr pCO2 49 H (35-45) mm/Hg pO2 95 (80-100) mm/Hg HCO3 30.0 H (21-28) mmol/L ABG pH 7.42 (7.35-7.45) ABG Total CO2 33.3 H (22-28) mmol/L ABG O2 Saturation 99.1 H (95-98) % ABG Base Excess 6.5 H (-2.0-3.0) mmol/L ABG Hemoglobin 8.7 L (11.7-17.4) g/dL ABG Carboxyhemoglobin 2.5 H (0.5-1.5) % POC ABG HHb (Measured) 0.9 (0.0-5.0) % ABG Methemoglobin 0.6 (0.0-3.0) % Bertin Test Pos ABG Potassium (3.6-5.2) mmol/L A-a O2 Difference 557.0 mm/Hg Respiratory Index 5.9 Hgb O2 Saturation 96.0 (95.0-98.0) % Glucose (75-110) mg/dl Lactate (0.7-2.1) mmol/L Vent Mode Prvc Mechanical Rate 20 FiO2 100.0 % Tidal Volume 500 PEEP 5 Sodium (132-148) mmol/L Potassium (3.6-5.2) mmol/L Chloride (98-107) mmol/L Carbon Dioxide (22-30) mmol/L Anion Gap (10-20) BUN (9-20) mg/dL Creatinine (0.8-1.5) mg/dL Est GFR ( Amer) Est GFR (Non-Af Amer) POC Glucose (mg/dL) 69 67 (65-110) mg/dL Random Glucose (75-110) mg/dL Calcium (8.6-10.4) mg/dl Phosphorus (2.5-4.5) mg/dL Magnesium (1.6-2.3) mg/dL Total Bilirubin (0.2-1.3) mg/dL AST (17-59) U/L ALT (21-72) U/L Alkaline Phosphatase (38-126) U/L Troponin I (0.00-0.120) ng/mL Total Protein (6.3-8.3) g/dL Albumin (3.5-5.0) g/dL Globulin (2.2-3.9) gm/dL Albumin/Globulin Ratio (1.0-2.1) Free PSA ng/mL % Free PSA (>25) % (calc) Total PSA (< or = 4.0) ng/mL Arterial Blood Potassium (3.6-5.2) mmol/L Urine Color (YELLOW) Urine Clarity (Clear) Urine pH (5.0-8.0) Ur Specific [place] (1.003-1.030) Urine Protein (NEGATIVE) mg/dL Urine Glucose (UA) (Normal) mg/dL Urine Ketones (NEGATIVE) mg/dL Urine Blood (NEGATIVE) Urine Nitrate (NEGATIVE) Urine Bilirubin (NEGATIVE) Urine Urobilinogen (0.2-1.0) mg/dL Ur Leukocyte Esterase (Negative) Kathe/uL Urine WBC (Auto) (0-5) /hpf Urine RBC (Auto) (0-3) /hpf Urine WBC Clumps (Auto) (NONE) /hpf Ur Squamous Epith Cells (0-5) /hpf Uric Acid Crystals (<OCC) /hpf Urine Bacteria (<OCC) Hyaline Casts (0-2) /lpf Ur Random Sodium mmol/L 06/27/18 06/27/18 06/27/18 Range/Units 02:11 00:23 00:19 WBC (4.8-10.8) K/uL RBC (4.40-5.90) Mil/uL Hgb (12.0-18.0) g/dL Hct (35.0-51.0) % MCV (80.0-94.0) fL MCH (27.0-31.0) pg MCHC (33.0-37.0) g/dL RDW (11.5-14.5) % Plt Count (130-400) K/uL MPV (7.2-11.7) fL Neut % (Auto) (50.0-75.0) % Lymph % (Auto) (20.0-40.0) % Newton % (Auto) (0.0-10.0) % Eos % (Auto) (0.0-4.0) % Baso % (Auto) (0.0-2.0) % Neut # (Auto) (1.8-7.0) K/uL Lymph # (Auto) (1.0-4.3) K/uL Newton # (Auto) (0.0-0.8) K/uL Eos # (Auto) (0.0-0.7) K/uL Baso # (Auto) (0.0-0.2) K/uL Neutrophils % (Manual) (50-75) % Lymphocytes % (Manual) (20-40) % Monocytes % (Manual) (0-10) % Eosinophils % (Manual) (0-4) % Nucleated RBC % (0-0) % Platelet Estimate (NORMAL) Large Platelets Polychromasia Hypochromasia (manual) Poikilocytosis (manual Anisocytosis (manual) Microcytosis (manual) Macrocytosis (manual) Target Cells Tear Drop Cells Ovalocytes D-Dimer, Quantitative (0-243) ng/mlDDU Puncture Site pCO2 (35-45) mm/Hg pO2 (80-100) mm/Hg HCO3 (21-28) mmol/L ABG pH (7.35-7.45) ABG Total CO2 (22-28) mmol/L ABG O2 Saturation (95-98) % ABG Base Excess (-2.0-3.0) mmol/L ABG Hemoglobin (11.7-17.4) g/dL ABG Carboxyhemoglobin (0.5-1.5) % POC ABG HHb (Measured) (0.0-5.0) % ABG Methemoglobin (0.0-3.0) % Bertin Test ABG Potassium (3.6-5.2) mmol/L A-a O2 Difference mm/Hg Respiratory Index Hgb O2 Saturation (95.0-98.0) % Glucose (75-110) mg/dl Lactate (0.7-2.1) mmol/L Vent Mode Mechanical Rate FiO2 % Tidal Volume PEEP Sodium (132-148) mmol/L Potassium (3.6-5.2) mmol/L Chloride (98-107) mmol/L Carbon Dioxide (22-30) mmol/L Anion Gap (10-20) BUN (9-20) mg/dL Creatinine (0.8-1.5) mg/dL Est GFR ( Amer) Est GFR (Non-Af Amer) POC Glucose (mg/dL) 90 57 L 61 L (65-110) mg/dL Random Glucose (75-110) mg/dL Calcium (8.6-10.4) mg/dl Phosphorus (2.5-4.5) mg/dL Magnesium (1.6-2.3) mg/dL Total Bilirubin (0.2-1.3) mg/dL AST (17-59) U/L ALT (21-72) U/L Alkaline Phosphatase (38-126) U/L Troponin I (0.00-0.120) ng/mL Total Protein (6.3-8.3) g/dL Albumin (3.5-5.0) g/dL Globulin (2.2-3.9) gm/dL Albumin/Globulin Ratio (1.0-2.1) Free PSA ng/mL % Free PSA (>25) % (calc) Total PSA (< or = 4.0) ng/mL Arterial Blood Potassium (3.6-5.2) mmol/L Urine Color (YELLOW) Urine Clarity (Clear) Urine pH (5.0-8.0) Ur Specific [place] (1.003-1.030) Urine Protein (NEGATIVE) mg/dL Urine Glucose (UA) (Normal) mg/dL Urine Ketones (NEGATIVE) mg/dL Urine Blood (NEGATIVE) Urine Nitrate (NEGATIVE) Urine Bilirubin (NEGATIVE) Urine Urobilinogen (0.2-1.0) mg/dL Ur Leukocyte Esterase (Negative) Kathe/uL Urine WBC (Auto) (0-5) /hpf Urine RBC (Auto) (0-3) /hpf Urine WBC Clumps (Auto) (NONE) /hpf Ur Squamous Epith Cells (0-5) /hpf Uric Acid Crystals (<OCC) /hpf Urine Bacteria (<OCC) Hyaline Casts (0-2) /lpf Ur Random Sodium mmol/L 06/26/18 06/26/18 06/26/18 Range/Units 20:52 18:45 17:29 WBC (4.8-10.8) K/uL RBC (4.40-5.90) Mil/uL Hgb (12.0-18.0) g/dL Hct (35.0-51.0) % MCV (80.0-94.0) fL MCH (27.0-31.0) pg MCHC (33.0-37.0) g/dL RDW (11.5-14.5) % Plt Count (130-400) K/uL MPV (7.2-11.7) fL Neut % (Auto) (50.0-75.0) % Lymph % (Auto) (20.0-40.0) % [place] % (Auto) (0.0-10.0) % Eos % (Auto) (0.0-4.0) % Baso % (Auto) (0.0-2.0) % Neut # (Auto) (1.8-7.0) K/uL Lymph # (Auto) (1.0-4.3) K/uL [place] # (Auto) (0.0-0.8) K/uL Eos # (Auto) (0.0-0.7) K/uL Baso # (Auto) (0.0-0.2) K/uL Neutrophils % (Manual) (50-75) % Lymphocytes % (Manual) (20-40) % Monocytes % (Manual) (0-10) % Eosinophils % (Manual) (0-4) % Nucleated RBC % (0-0) % Platelet Estimate (NORMAL) Large Platelets Polychromasia Hypochromasia (manual) Poikilocytosis (manual Anisocytosis (manual) Microcytosis (manual) Macrocytosis (manual) Target Cells Tear Drop Cells Ovalocytes D-Dimer, Quantitative (0-243) ng/mlDDU Puncture Site Lb pCO2 63 H (35-45) mm/Hg pO2 56 L (80-100) mm/Hg HCO3 28.8 H (21-28) mmol/L ABG pH 7.33 L (7.35-7.45) ABG Total CO2 35.1 H (22-28) mmol/L ABG O2 Saturation 89.3 L (95-98) % ABG Base Excess 5.3 H (-2.0-3.0) mmol/L ABG Hemoglobin (11.7-17.4) g/dL ABG Carboxyhemoglobin (0.5-1.5) % POC ABG HHb (Measured) (0.0-5.0) % ABG Methemoglobin (0.0-3.0) % Bertin Test Na ABG Potassium 4.5 (3.6-5.2) mmol/L A-a O2 Difference 578.0 mm/Hg Respiratory Index 10.3 Hgb O2 Saturation (95.0-98.0) % Glucose 64 L (75-110) mg/dl Lactate 2.5 H (0.7-2.1) mmol/L Vent Mode Prvc Mechanical Rate 14 FiO2 100.0 % Tidal Volume 500 PEEP 5 Sodium 136.0 (132-148) mmol/L Potassium (3.6-5.2) mmol/L Chloride 100.0 (98-107) mmol/L Carbon Dioxide (22-30) mmol/L Anion Gap (10-20) BUN (9-20) mg/dL Creatinine (0.8-1.5) mg/dL Est GFR ( Amer) Est GFR (Non-Af Amer) POC Glucose (mg/dL) 77 (65-110) mg/dL Random Glucose (75-110) mg/dL Calcium (8.6-10.4) mg/dl Phosphorus (2.5-4.5) mg/dL Magnesium (1.6-2.3) mg/dL Total Bilirubin (0.2-1.3) mg/dL AST (17-59) U/L ALT (21-72) U/L Alkaline Phosphatase (38-126) U/L Troponin I (0.00-0.120) ng/mL Total Protein (6.3-8.3) g/dL Albumin (3.5-5.0) g/dL Globulin (2.2-3.9) gm/dL Albumin/Globulin Ratio (1.0-2.1) Free PSA ng/mL % Free PSA (>25) % (calc) Total PSA (< or = 4.0) ng/mL Arterial Blood Potassium 4.5 (3.6-5.2) mmol/L Urine Color (YELLOW) Urine Clarity (Clear) Urine pH (5.0-8.0) Ur Specific [place] (1.003-1.030) Urine Protein (NEGATIVE) mg/dL Urine Glucose (UA) (Normal) mg/dL Urine Ketones (NEGATIVE) mg/dL Urine Blood (NEGATIVE) Urine Nitrate (NEGATIVE) Urine Bilirubin (NEGATIVE) Urine Urobilinogen (0.2-1.0) mg/dL Ur Leukocyte Esterase (Negative) Kathe/uL Urine WBC (Auto) (0-5) /hpf Urine RBC (Auto) (0-3) /hpf Urine WBC Clumps (Auto) (NONE) /hpf Ur Squamous Epith Cells (0-5) /hpf Uric Acid Crystals (<OCC) /hpf Urine Bacteria (<OCC) Hyaline Casts (0-2) /lpf Ur Random Sodium 42 mmol/L 06/26/18 06/26/18 06/26/18 Range/Units 16:17 16:17 15:43 WBC (4.8-10.8) K/uL RBC (4.40-5.90) Mil/uL Hgb (12.0-18.0) g/dL Hct (35.0-51.0) % MCV (80.0-94.0) fL MCH (27.0-31.0) pg MCHC (33.0-37.0) g/dL RDW (11.5-14.5) % Plt Count (130-400) K/uL MPV (7.2-11.7) fL Neut % (Auto) (50.0-75.0) % Lymph % (Auto) (20.0-40.0) % [place] % (Auto) (0.0-10.0) % Eos % (Auto) (0.0-4.0) % Baso % (Auto) (0.0-2.0) % Neut # (Auto) (1.8-7.0) K/uL Lymph # (Auto) (1.0-4.3) K/uL [place] # (Auto) (0.0-0.8) K/uL Eos # (Auto) (0.0-0.7) K/uL Baso # (Auto) (0.0-0.2) K/uL Neutrophils % (Manual) (50-75) % Lymphocytes % (Manual) (20-40) % Monocytes % (Manual) (0-10) % Eosinophils % (Manual) (0-4) % Nucleated RBC % (0-0) % Platelet Estimate (NORMAL) Large Platelets Polychromasia Hypochromasia (manual) Poikilocytosis (manual Anisocytosis (manual) Microcytosis (manual) Macrocytosis (manual) Target Cells Tear Drop Cells Ovalocytes D-Dimer, Quantitative 828 H (0-243) ng/mlDDU Puncture Site pCO2 (35-45) mm/Hg pO2 (80-100) mm/Hg HCO3 (21-28) mmol/L ABG pH (7.35-7.45) ABG Total CO2 (22-28) mmol/L ABG O2 Saturation (95-98) % ABG Base Excess (-2.0-3.0) mmol/L ABG Hemoglobin (11.7-17.4) g/dL ABG Carboxyhemoglobin (0.5-1.5) % POC ABG HHb (Measured) (0.0-5.0) % ABG Methemoglobin (0.0-3.0) % Bertin Test ABG Potassium (3.6-5.2) mmol/L A-a O2 Difference mm/Hg Respiratory Index Hgb O2 Saturation (95.0-98.0) % Glucose (75-110) mg/dl Lactate (0.7-2.1) mmol/L Vent Mode Mechanical Rate FiO2 % Tidal Volume PEEP Sodium 136 (132-148) mmol/L Potassium 4.6 (3.6-5.2) mmol/L Chloride 95 L (98-107) mmol/L Carbon Dioxide 36 H (22-30) mmol/L Anion Gap 9 L (10-20) BUN 25 H (9-20) mg/dL Creatinine 2.1 H (0.8-1.5) mg/dL Est GFR ( Amer) 38 Est GFR (Non-Af Amer) 32 POC Glucose (mg/dL) (65-110) mg/dL Random Glucose 79 (75-110) mg/dL Calcium 8.1 L (8.6-10.4) mg/dl Phosphorus 3.6 (2.5-4.5) mg/dL Magnesium 2.0 (1.6-2.3) mg/dL Total Bilirubin 1.0 (0.2-1.3) mg/dL AST 31 (17-59) U/L ALT 10 L (21-72) U/L Alkaline Phosphatase 111 (38-126) U/L Troponin I (0.00-0.120) ng/mL Total Protein 6.9 (6.3-8.3) g/dL Albumin 3.4 L (3.5-5.0) g/dL Globulin 3.4 (2.2-3.9) gm/dL Albumin/Globulin Ratio 1.0 (1.0-2.1) Free PSA ng/mL % Free PSA (>25) % (calc) Total PSA (< or = 4.0) ng/mL Arterial Blood Potassium (3.6-5.2) mmol/L Urine Color Bernie (YELLOW) Urine Clarity Hazy (Clear) Urine pH 6.0 (5.0-8.0) Ur Specific [place] 1.011 (1.003-1.030) Urine Protein 1+ H (NEGATIVE) mg/dL Urine Glucose (UA) Normal (Normal) mg/dL Urine Ketones Negative (NEGATIVE) mg/dL Urine Blood 3+ H (NEGATIVE) Urine Nitrate Negative (NEGATIVE) Urine Bilirubin Negative (NEGATIVE) Urine Urobilinogen 2.0 (0.2-1.0) mg/dL Ur Leukocyte Esterase 1+ H (Negative) Kathe/uL Urine WBC (Auto) 27 H (0-5) /hpf Urine RBC (Auto) 631 H (0-3) /hpf Urine WBC Clumps (Auto) Few H (NONE) /hpf Ur Squamous Epith Cells 1 (0-5) /hpf Uric Acid Crystals Occ H (<OCC) /hpf Urine Bacteria Rare (<OCC) Hyaline Casts >20 H (0-2) /lpf Ur Random Sodium mmol/L 06/26/18 06/26/18 06/25/18 Range/Units 15:43 11:43 15:04 WBC (4.8-10.8) K/uL RBC (4.40-5.90) Mil/uL Hgb (12.0-18.0) g/dL Hct (35.0-51.0) % MCV (80.0-94.0) fL MCH (27.0-31.0) pg MCHC (33.0-37.0) g/dL RDW (11.5-14.5) % Plt Count (130-400) K/uL MPV (7.2-11.7) fL Neut % (Auto) (50.0-75.0) % Lymph % (Auto) (20.0-40.0) % [place] % (Auto) (0.0-10.0) % Eos % (Auto) (0.0-4.0) % Baso % (Auto) (0.0-2.0) % Neut # (Auto) (1.8-7.0) K/uL Lymph # (Auto) (1.0-4.3) K/uL Newton # (Auto) (0.0-0.8) K/uL Eos # (Auto) (0.0-0.7) K/uL Baso # (Auto) (0.0-0.2) K/uL Neutrophils % (Manual) (50-75) % Lymphocytes % (Manual) (20-40) % Monocytes % (Manual) (0-10) % Eosinophils % (Manual) (0-4) % Nucleated RBC % (0-0) % Platelet Estimate (NORMAL) Large Platelets Polychromasia Hypochromasia (manual) Poikilocytosis (manual Anisocytosis (manual) Microcytosis (manual) Macrocytosis (manual) Target Cells Tear Drop Cells Ovalocytes D-Dimer, Quantitative (0-243) ng/mlDDU Puncture Site pCO2 (35-45) mm/Hg pO2 (80-100) mm/Hg HCO3 (21-28) mmol/L ABG pH (7.35-7.45) ABG Total CO2 (22-28) mmol/L ABG O2 Saturation (95-98) % ABG Base Excess (-2.0-3.0) mmol/L ABG Hemoglobin (11.7-17.4) g/dL ABG Carboxyhemoglobin (0.5-1.5) % POC ABG HHb (Measured) (0.0-5.0) % ABG Methemoglobin (0.0-3.0) % Bertin Test ABG Potassium (3.6-5.2) mmol/L A-a O2 Difference mm/Hg Respiratory Index Hgb O2 Saturation (95.0-98.0) % Glucose (75-110) mg/dl Lactate (0.7-2.1) mmol/L Vent Mode Mechanical Rate FiO2 % Tidal Volume PEEP Sodium (132-148) mmol/L Potassium (3.6-5.2) mmol/L Chloride (98-107) mmol/L Carbon Dioxide (22-30) mmol/L Anion Gap (10-20) BUN (9-20) mg/dL Creatinine (0.8-1.5) mg/dL Est GFR ( Amer) Est GFR (Non-Af Amer) POC Glucose (mg/dL) 127 H (65-110) mg/dL Random Glucose (75-110) mg/dL Calcium (8.6-10.4) mg/dl Phosphorus (2.5-4.5) mg/dL Magnesium (1.6-2.3) mg/dL Total Bilirubin (0.2-1.3) mg/dL AST (17-59) U/L ALT (21-72) U/L Alkaline Phosphatase (38-126) U/L Troponin I 0.3490 H* (0.00-0.120) ng/mL Total Protein (6.3-8.3) g/dL Albumin (3.5-5.0) g/dL Globulin (2.2-3.9) gm/dL Albumin/Globulin Ratio (1.0-2.1) Free PSA 0.4 ng/mL % Free PSA 80 (>25) % (calc) Total PSA 0.5 (< or = 4.0) ng/mL Arterial Blood Potassium (3.6-5.2) mmol/L Urine Color (YELLOW) Urine Clarity (Clear) Urine pH (5.0-8.0) Ur Specific [place] (1.003-1.030) Urine Protein (NEGATIVE) mg/dL Urine Glucose (UA) (Normal) mg/dL Urine Ketones (NEGATIVE) mg/dL Urine Blood (NEGATIVE) Urine Nitrate (NEGATIVE) Urine Bilirubin (NEGATIVE) Urine Urobilinogen (0.2-1.0) mg/dL Ur Leukocyte Esterase (Negative) [place]/uL Urine WBC (Auto) (0-5) /hpf Urine RBC (Auto) (0-3) /hpf Urine WBC Clumps (Auto) (NONE) /hpf Ur Squamous Epith Cells (0-5) /hpf Uric Acid Crystals (<OCC) /hpf Urine Bacteria (<OCC) Hyaline Casts (0-2) /lpf Ur Random Sodium mmol/L Laboratory Results - last 24 hr 06/25/18 06/26/18 06/26/18 15:04 11:43 15:43 WBC RBC Hgb Hct MCV MCH MCHC RDW Plt Count MPV Neut % (Auto) Lymph % (Auto) [place] % (Auto) Eos % (Auto) Baso % (Auto) Neut # (Auto) Lymph # (Auto) [place] # (Auto) Eos # (Auto) Baso # (Auto) Neutrophils % (Manual) Lymphocytes % (Manual) Monocytes % (Manual) Eosinophils % (Manual) Nucleated RBC % Platelet Estimate Large Platelets Polychromasia Hypochromasia (manual) Poikilocytosis (manual Anisocytosis (manual) Microcytosis (manual) Macrocytosis (manual) Target Cells Tear Drop Cells Ovalocytes D-Dimer, Quantitative Puncture Site pCO2 pO2 HCO3 ABG pH ABG Total CO2 ABG O2 Saturation ABG Base Excess ABG Hemoglobin ABG Carboxyhemoglobin POC ABG HHb (Measured) ABG Methemoglobin Bertin Test ABG Potassium A-a O2 Difference Respiratory Index Hgb O2 Saturation Glucose Lactate Vent Mode Mechanical Rate FiO2 Tidal Volume PEEP Sodium Potassium Chloride Carbon Dioxide Anion Gap BUN Creatinine Est GFR ( Amer) Est GFR (Non-Af Amer) POC Glucose (mg/dL) 127 H Random Glucose Calcium Phosphorus Magnesium Total Bilirubin AST ALT Alkaline Phosphatase Troponin I 0.3490 H* Total Protein Albumin Globulin Albumin/Globulin Ratio Free PSA 0.4 % Free PSA 80 Total PSA 0.5 Arterial Blood Potassium Urine Color Urine Clarity Urine pH Ur Specific [place] Urine Protein Urine Glucose (UA) Urine Ketones Urine Blood Urine Nitrate Urine Bilirubin Urine Urobilinogen Ur Leukocyte Esterase Urine WBC (Auto) Urine RBC (Auto) Urine WBC Clumps (Auto) Ur Squamous Epith Cells Uric Acid Crystals Urine Bacteria Hyaline Casts Ur Random Sodium 06/26/18 06/26/18 06/26/18 15:43 16:17 16:17 WBC RBC Hgb Hct MCV MCH MCHC RDW Plt Count MPV Neut % (Auto) Lymph % (Auto) [place] % (Auto) Eos % (Auto) Baso % (Auto) Neut # (Auto) Lymph # (Auto) [place] # (Auto) Eos # (Auto) Baso # (Auto) Neutrophils % (Manual) Lymphocytes % (Manual) Monocytes % (Manual) Eosinophils % (Manual) Nucleated RBC % Platelet Estimate Large Platelets Polychromasia Hypochromasia (manual) Poikilocytosis (manual Anisocytosis (manual) Microcytosis (manual) Macrocytosis (manual) Target Cells Tear Drop Cells Ovalocytes D-Dimer, Quantitative 828 H Puncture Site pCO2 pO2 HCO3 ABG pH ABG Total CO2 ABG O2 Saturation ABG Base Excess ABG Hemoglobin ABG Carboxyhemoglobin POC ABG HHb (Measured) ABG Methemoglobin Bertin Test ABG Potassium A-a O2 Difference Respiratory Index Hgb O2 Saturation Glucose Lactate Vent Mode Mechanical Rate FiO2 Tidal Volume PEEP Sodium 136 Potassium 4.6 Chloride 95 L Carbon Dioxide 36 H Anion Gap 9 L BUN 25 H Creatinine 2.1 H Est GFR ( Amer) 38 Est GFR (Non-Af Amer) 32 POC Glucose (mg/dL) Random Glucose 79 Calcium 8.1 L Phosphorus 3.6 Magnesium 2.0 Total Bilirubin 1.0 AST 31 ALT 10 L Alkaline Phosphatase 111 Troponin I Total Protein 6.9 Albumin 3.4 L Globulin 3.4 Albumin/Globulin Ratio 1.0 Free PSA % Free PSA Total PSA Arterial Blood Potassium Urine Color Bernie Urine Clarity Hazy Urine pH 6.0 Ur Specific [place] 1.011 Urine Protein 1+ H Urine Glucose (UA) Normal Urine Ketones Negative Urine Blood 3+ H Urine Nitrate Negative Urine Bilirubin Negative Urine Urobilinogen 2.0 Ur Leukocyte Esterase 1+ H Urine WBC (Auto) 27 H Urine RBC (Auto) 631 H Urine WBC Clumps (Auto) Few H Ur Squamous Epith Cells 1 Uric Acid Crystals Occ H Urine Bacteria Rare Hyaline Casts >20 H Ur Random Sodium 06/26/18 06/26/18 06/26/18 17:29 18:45 20:52 WBC RBC Hgb Hct MCV MCH MCHC RDW Plt Count MPV Neut % (Auto) Lymph % (Auto) Newton % (Auto) Eos % (Auto) Baso % (Auto) Neut # (Auto) Lymph # (Auto) Newton # (Auto) Eos # (Auto) Baso # (Auto) Neutrophils % (Manual) Lymphocytes % (Manual) Monocytes % (Manual) Eosinophils % (Manual) Nucleated RBC % Platelet Estimate Large Platelets Polychromasia Hypochromasia (manual) Poikilocytosis (manual Anisocytosis (manual) Microcytosis (manual) Macrocytosis (manual) Target Cells Tear Drop Cells Ovalocytes D-Dimer, Quantitative Puncture Site Lb pCO2 63 H pO2 56 L HCO3 28.8 H ABG pH 7.33 L ABG Total CO2 35.1 H ABG O2 Saturation 89.3 L ABG Base Excess 5.3 H ABG Hemoglobin ABG Carboxyhemoglobin POC ABG HHb (Measured) ABG Methemoglobin Bertin Test Na ABG Potassium 4.5 A-a O2 Difference 578.0 Respiratory Index 10.3 Hgb O2 Saturation Glucose 64 L Lactate 2.5 H Vent Mode Prvc Mechanical Rate 14 FiO2 100.0 Tidal Volume 500 PEEP 5 Sodium 136.0 Potassium Chloride 100.0 Carbon Dioxide Anion Gap BUN Creatinine Est GFR ( Amer) Est GFR (Non-Af Amer) POC Glucose (mg/dL) 77 Random Glucose Calcium Phosphorus Magnesium Total Bilirubin AST ALT Alkaline Phosphatase Troponin I Total Protein Albumin Globulin Albumin/Globulin Ratio Free PSA % Free PSA Total PSA Arterial Blood Potassium 4.5 Urine Color Urine Clarity Urine pH Ur Specific [place] Urine Protein Urine Glucose (UA) Urine Ketones Urine Blood Urine Nitrate Urine Bilirubin Urine Urobilinogen Ur Leukocyte Esterase Urine WBC (Auto) Urine RBC (Auto) Urine WBC Clumps (Auto) Ur Squamous Epith Cells Uric Acid Crystals Urine Bacteria Hyaline Casts Ur Random Sodium 42 06/27/18 06/27/18 06/27/18 00:19 00:23 02:11 WBC RBC Hgb Hct MCV MCH MCHC RDW Plt Count MPV Neut % (Auto) Lymph % (Auto) Newton % (Auto) Eos % (Auto) Baso % (Auto) Neut # (Auto) Lymph # (Auto) Newton # (Auto) Eos # (Auto) Baso # (Auto) Neutrophils % (Manual) Lymphocytes % (Manual) Monocytes % (Manual) Eosinophils % (Manual) Nucleated RBC % Platelet Estimate Large Platelets Polychromasia Hypochromasia (manual) Poikilocytosis (manual Anisocytosis (manual) Microcytosis (manual) Macrocytosis (manual) Target Cells Tear Drop Cells Ovalocytes D-Dimer, Quantitative Puncture Site pCO2 pO2 HCO3 ABG pH ABG Total CO2 ABG O2 Saturation ABG Base Excess ABG Hemoglobin ABG Carboxyhemoglobin POC ABG HHb (Measured) ABG Methemoglobin Bertin Test ABG Potassium A-a O2 Difference Respiratory Index Hgb O2 Saturation Glucose Lactate Vent Mode Mechanical Rate FiO2 Tidal Volume PEEP Sodium Potassium Chloride Carbon Dioxide Anion Gap BUN Creatinine Est GFR ( Amer) Est GFR (Non-Af Amer) POC Glucose (mg/dL) 61 L 57 L 90 Random Glucose Calcium Phosphorus Magnesium Total Bilirubin AST ALT Alkaline Phosphatase Troponin I Total Protein Albumin Globulin Albumin/Globulin Ratio Free PSA % Free PSA Total PSA Arterial Blood Potassium Urine Color Urine Clarity Urine pH Ur Specific [place] Urine Protein Urine Glucose (UA) Urine Ketones Urine Blood Urine Nitrate Urine Bilirubin Urine Urobilinogen Ur Leukocyte Esterase Urine WBC (Auto) Urine RBC (Auto) Urine WBC Clumps (Auto) Ur Squamous Epith Cells Uric Acid Crystals Urine Bacteria Hyaline Casts Ur Random Sodium 06/27/18 06/27/18 06/27/18 05:24 05:40 05:44 WBC RBC Hgb Hct MCV MCH MCHC RDW Plt Count MPV Neut % (Auto) Lymph % (Auto) Newton % (Auto) Eos % (Auto) Baso % (Auto) Neut # (Auto) Lymph # (Auto) Newton # (Auto) Eos # (Auto) Baso # (Auto) Neutrophils % (Manual) Lymphocytes % (Manual) Monocytes % (Manual) Eosinophils % (Manual) Nucleated RBC % Platelet Estimate Large Platelets Polychromasia Hypochromasia (manual) Poikilocytosis (manual Anisocytosis (manual) Microcytosis (manual) Macrocytosis (manual) Target Cells Tear Drop Cells Ovalocytes D-Dimer, Quantitative Puncture Site Rr pCO2 49 H pO2 95 HCO3 30.0 H ABG pH 7.42 ABG Total CO2 33.3 H ABG O2 Saturation 99.1 H ABG Base Excess 6.5 H ABG Hemoglobin 8.7 L ABG Carboxyhemoglobin 2.5 H POC ABG HHb (Measured) 0.9 ABG Methemoglobin 0.6 Bertin Test Pos ABG Potassium A-a O2 Difference 557.0 Respiratory Index 5.9 Hgb O2 Saturation 96.0 Glucose Lactate Vent Mode Prvc Mechanical Rate 20 FiO2 100.0 Tidal Volume 500 PEEP 5 Sodium Potassium Chloride Carbon Dioxide Anion Gap BUN Creatinine Est GFR ( Amer) Est GFR (Non-Af Amer) POC Glucose (mg/dL) 67 69 Random Glucose Calcium Phosphorus Magnesium Total Bilirubin AST ALT Alkaline Phosphatase Troponin I Total Protein Albumin Globulin Albumin/Globulin Ratio Free PSA % Free PSA Total PSA Arterial Blood Potassium Urine Color Urine Clarity Urine pH Ur Specific [place] Urine Protein Urine Glucose (UA) Urine Ketones Urine Blood Urine Nitrate Urine Bilirubin Urine Urobilinogen Ur Leukocyte Esterase Urine WBC (Auto) Urine RBC (Auto) Urine WBC Clumps (Auto) Ur Squamous Epith Cells Uric Acid Crystals Urine Bacteria Hyaline Casts Ur Random Sodium 06/27/18 06/27/18 06/27/18 06:15 06:15 07:54 WBC 8.8 RBC 3.31 L Hgb 8.7 L Hct 27.9 L MCV 84.4 MCH 26.2 L MCHC 31.0 L RDW 22.7 H Plt Count 231 MPV 8.1 Neut % (Auto) 72.6 Lymph % (Auto) 8.3 L Newton % (Auto) 17.9 H Eos % (Auto) 0.8 Baso % (Auto) 0.4 Neut # (Auto) 6.4 Lymph # (Auto) 0.7 L [place] # (Auto) 1.6 H Eos # (Auto) 0.1 Baso # (Auto) 0.0 Neutrophils % (Manual) 72 Lymphocytes % (Manual) 6 L Monocytes % (Manual) 21 H Eosinophils % (Manual) 1 Nucleated RBC % 2 H Platelet Estimate Normal Large Platelets Present Polychromasia Slight Hypochromasia (manual) Moderate Poikilocytosis (manual Slight Anisocytosis (manual) Slight Microcytosis (manual) Slight Macrocytosis (manual) Slight Target Cells Slight Tear Drop Cells Slight Ovalocytes Slight D-Dimer, Quantitative Puncture Site pCO2 pO2 HCO3 ABG pH ABG Total CO2 ABG O2 Saturation ABG Base Excess ABG Hemoglobin ABG Carboxyhemoglobin POC ABG HHb (Measured) ABG Methemoglobin Bertin Test ABG Potassium A-a O2 Difference Respiratory Index Hgb O2 Saturation Glucose Lactate Vent Mode Mechanical Rate FiO2 Tidal Volume PEEP Sodium 134 Potassium 4.6 Chloride 95 L Carbon Dioxide 33 H Anion Gap 11 BUN 31 H Creatinine 2.4 H Est GFR ( Amer) 33 Est GFR (Non-Af Amer) 27 POC Glucose (mg/dL) 127 H Random Glucose 53 L D Calcium 8.2 L Phosphorus 3.5 Magnesium 2.0 Total Bilirubin 1.2 AST 44 ALT < 6 L D Alkaline Phosphatase 119 Troponin I Total Protein 7.1 Albumin 3.6 Globulin 3.5 Albumin/Globulin Ratio 1.0 Free PSA % Free PSA Total PSA Arterial Blood Potassium Urine Color Urine Clarity Urine pH Ur Specific [place] Urine Protein Urine Glucose (UA) Urine Ketones Urine Blood Urine Nitrate Urine Bilirubin Urine Urobilinogen Ur Leukocyte Esterase Urine WBC (Auto) Urine RBC (Auto) Urine WBC Clumps (Auto) Ur Squamous Epith Cells Uric Acid Crystals Urine Bacteria Hyaline Casts Ur Random Sodium Radiology Impressions: Radiology Impressions Abdomen Obstructive Series X-ray 06/26/18 12:52 IMPRESSION: 1. Nonspecific nonobstructive bowel gas pattern. 2. Moderate cardiomegaly, mild pulmonary venous congestion and moderate right pleural effusion. Right lower lobe airspace disease may represent compressive atelectasis versus pneumonia. Follow-up is advised. 3. Endotracheal tube terminates 4 cm proximal to the dario. Chest X-Ray 06/27/18 07:00 IMPRESSION: In situ ETT as above. Bilateral effusions with suspected bibasilar atelectasis and/or infiltrates. . The central pulmonary vasculature is slightly increased; rule out mild chronic compensated pulmonary venous congestion. EKG/Cardiology Studies: Cardiology / EKG Studies 06/26/18 15:14 ELECTROCARDIOGRAM Routine Comment: Mode Of Transportation: PORTABLE Reason For Exam: resp failure Fingerstick Blood Sugar Results: 74 Review of Systems - Review of Systems All systems: reviewed and no additional remarkable complaints except Critical Care Progress Note - Nutrition Nutrition: Nutrition Category Date Time Status NPO Diet [DIET] Diets 06/26/18 Breakfast Active Assessment/Plan - Assessment and Plan (Free Text) Assessment: Patient is a 68 year old male with PMHx HTN, DM, cirrhosis, esophageal varices presents in acute respiratory distress s/p EGD and became acutely hypotensive. Pulmonary Respiratory Distress, etiology unclear - rule out hepatorenal syndrome -Intubated, on vent support -Maintain adequate ventilation and saturation -Vent with plan to wean -Fentanyl, ativan prn for sedation -Echo w/ bubble study to assess shunt physiology - f/u Cardiovascular -Cardio on consult, Dr. Rouse Elevated Troponins -Increasing troponins .349 --> .594 -Patient in acute renal failure -No ST changes on EKG -Continue trending Q6 -Cardiology to be made aware and management per cardio HFrEF -C/w CHF meds --Coreg, Valsartan/Sacubitiril, Crestor -Monitor Is and Os GI -GI on consult, Dr. Garza -Monitor for signs of GI bleed -Trend H and H -Protonix 40 mg PO daily -S/p PRBC transfusion Endo DM -ISS -Hypoglycemia protocol Heme Iron Deficiency Anemia -Hematology consult, Dr. Villavicencio -S/p PRBC transfusion -Receiving IV iron -Monitor H and H -Monitor for symptoms of acute anemia -Transfuse as needed PPx -DVT: Lovenox 40 SC daily -GI: Protonix 40 PO daily -ETT on vent Assessment and plan d/w Dr. John Waters, PGY-1 <Nate Lopez S - Last Filed: 06/27/18 17:30> CCU Subjective - Physician Review Critical Care Time Spent (in minutes): 40 CCU Objective - Vital Signs / Intake & Output Vital Signs (Last 4 hours): Vital Signs Pulse Resp BP Pulse Ox 06/27/18 15:02 82 20 110/76 95 06/27/18 15:00 83 20 94 L 06/27/18 14:02 83 20 106/67 96 06/27/18 14:00 84 20 95 Intake and Output (Last 8hrs): Intake & Output 06/27/18 06/27/18 06/27/18 06:59 14:59 22:59 Intake Total 879 942.3 Output Total 55 109 Balance 824 833.3 Intake: IV 383 278 Intake, IV Amount 496 664.3 PICC 150 Right Distal Port PICC 96 114.3 Right Proximal Port PICC 400 400 Output: Urine 55 109 Urethral (Mccall) 55 109 - Medications Active Medications: Active Medications Generic Name Dose Route Start Last Admin Trade Name Freq PRN Reason Stop Dose Admin Acetaminophen 325 mg 06/23/18 21:38 Tylenol 325mg Tab PO Q6H PRN Pain, Mild (1-3) Al Hydrox/Mg Hydrox/Simethicone 30 ml 06/23/18 21:38 Maalox Plus 30 Ml PO Q4H PRN Heartburn Aspirin 81 mg 06/24/18 10:00 06/24/18 09:15 Aspirin Chewable PO 81 mg DAILY KAYLEEN Administration Carvedilol 3.125 mg 06/24/18 10:00 06/27/18 17:14 Coreg PO Not Given BID KAYLEEN Enoxaparin Sodium 40 mg 06/26/18 15:30 06/27/18 09:12 Lovenox SC 40 mg DAILY KAYLEEN Administration Ferric Sodium Gluconate Complex 125 mg 06/24/18 10:00 06/27/18 09:10 Ferrlecit IVPB 07/02/18 10:01 125 mg DAILY KAYLEEN Administration Furosemide 60 mg 06/27/18 10:00 06/27/18 09:11 Lasix IVP 60 mg DAILY KAYLEEN Administration Ceftaroline Fosamil 400 mg/ 100 mls @ 100 mls/hr 06/23/18 22:00 06/27/18 09:13 Dextrose IVPB 100 mls/hr Q12H KAYLEEN Administration Protocol Phenylephrine HCl 30 mg/ 253 mls @ 10.12 mls/hr 06/26/18 12:36 06/27/18 08:45 Sodium Chloride IV 100 mcg/min .Q24H PRN 50.6 mls/hr TITRATE PER MD ORDER Administration Protocol 20 MCG/MIN Fentanyl Citrate 2,500 mcg/ 250 mls @ 24.11 mls/hr 06/26/18 12:45 06/27/18 12:37 Sodium Chloride IV 1.5 mcg/kg/hr .[id number] PRN 18.08 mls/hr PER TITRATION Titration Protocol 2 MCG/KG/HR Lorazepam 1 mg 06/26/18 15:09 06/27/18 12:35 Ativan IVP 1 mg Q4H PRN Administration Anxiety Pantoprazole Sodium 40 mg 06/27/18 10:00 06/27/18 09:55 Protonix Inj IVP 40 mg DAILY KAYLEEN Administration Rosuvastatin Calcium 5 mg 06/23/18 22:00 06/26/18 22:20 Crestor PO Not Given HS KAYLEEN Sacubitril/Valsartan 1 tab 06/24/18 10:00 06/25/18 09:35 Entresto 24 Mg-26 Mg PO 1 tab DAILY KAYLEEN Administration - Patient Studies Lab Studies: Microbiology Studies 06/25/18 09:08 Urine Culture - Final Urine,Catheterized No Growth (<1,000 CFU/ML) Lab Studies 06/27/18 06/27/18 06/27/18 Range/Units 11:27 10:05 07:54 WBC (4.8-10.8) K/uL RBC (4.40-5.90) Mil/uL Hgb (12.0-18.0) g/dL Hct (35.0-51.0) % MCV (80.0-94.0) fL MCH (27.0-31.0) pg MCHC (33.0-37.0) g/dL RDW (11.5-14.5) % Plt Count (130-400) K/uL MPV (7.2-11.7) fL Neut % (Auto) (50.0-75.0) % Lymph % (Auto) (20.0-40.0) % Newton % (Auto) (0.0-10.0) % Eos % (Auto) (0.0-4.0) % Baso % (Auto) (0.0-2.0) % Neut # (Auto) (1.8-7.0) K/uL Lymph # (Auto) (1.0-4.3) K/uL [place] # (Auto) (0.0-0.8) K/uL Eos # (Auto) (0.0-0.7) K/uL Baso # (Auto) (0.0-0.2) K/uL Neutrophils % (Manual) (50-75) % Lymphocytes % (Manual) (20-40) % Monocytes % (Manual) (0-10) % Eosinophils % (Manual) (0-4) % Nucleated RBC % (0-0) % Platelet Estimate (NORMAL) Large Platelets Polychromasia Hypochromasia (manual) Poikilocytosis (manual Anisocytosis (manual) Microcytosis (manual) Macrocytosis (manual) Target Cells Tear Drop Cells Ovalocytes Puncture Site pCO2 (35-45) mm/Hg pO2 (80-100) mm/Hg HCO3 (21-28) mmol/L ABG pH (7.35-7.45) ABG Total CO2 (22-28) mmol/L ABG O2 Saturation (95-98) % ABG Base Excess (-2.0-3.0) mmol/L ABG Hemoglobin (11.7-17.4) g/dL ABG Carboxyhemoglobin (0.5-1.5) % POC ABG HHb (Measured) (0.0-5.0) % ABG Methemoglobin (0.0-3.0) % Bertin Test ABG Potassium (3.6-5.2) mmol/L A-a O2 Difference mm/Hg Respiratory Index Hgb O2 Saturation (95.0-98.0) % Sodium (132-148) mmol/l Chloride (98-107) mmol/L Glucose (75-110) mg/dl Lactate (0.7-2.1) mmol/L Vent Mode Mechanical Rate FiO2 % Tidal Volume PEEP Potassium (3.6-5.2) mmol/L Carbon Dioxide (22-30) mmol/L Anion Gap (10-20) BUN (9-20) mg/dL Creatinine (0.8-1.5) mg/dL Est GFR ( Amer) Est GFR (Non-Af Amer) POC Glucose (mg/dL) 82 127 H (65-110) mg/dL Random Glucose (75-110) mg/dL Calcium (8.6-10.4) mg/dl Phosphorus (2.5-4.5) mg/dL Magnesium (1.6-2.3) mg/dL Total Bilirubin (0.2-1.3) mg/dL AST (17-59) U/L ALT (21-72) U/L Alkaline Phosphatase (38-126) U/L Troponin I 0.5940 H* (0.00-0.120) ng/mL Total Protein (6.3-8.3) g/dL Albumin (3.5-5.0) g/dL Globulin (2.2-3.9) gm/dL Albumin/Globulin Ratio (1.0-2.1) Arterial Blood Potassium (3.6-5.2) mmol/L Ur Random Sodium mmol/L 06/27/18 06/27/18 06/27/18 Range/Units 06:15 06:15 05:44 WBC 8.8 (4.8-10.8) K/uL RBC 3.31 L (4.40-5.90) Mil/uL Hgb 8.7 L (12.0-18.0) g/dL Hct 27.9 L (35.0-51.0) % MCV 84.4 (80.0-94.0) fL MCH 26.2 L (27.0-31.0) pg MCHC 31.0 L (33.0-37.0) g/dL RDW 22.7 H (11.5-14.5) % Plt Count 231 (130-400) K/uL MPV 8.1 (7.2-11.7) fL Neut % (Auto) 72.6 (50.0-75.0) % Lymph % (Auto) 8.3 L (20.0-40.0) % [place] % (Auto) 17.9 H (0.0-10.0) % Eos % (Auto) 0.8 (0.0-4.0) % Baso % (Auto) 0.4 (0.0-2.0) % Neut # (Auto) 6.4 (1.8-7.0) K/uL Lymph # (Auto) 0.7 L (1.0-4.3) K/uL [place] # (Auto) 1.6 H (0.0-0.8) K/uL Eos # (Auto) 0.1 (0.0-0.7) K/uL Baso # (Auto) 0.0 (0.0-0.2) K/uL Neutrophils % (Manual) 72 (50-75) % Lymphocytes % (Manual) 6 L (20-40) % Monocytes % (Manual) 21 H (0-10) % Eosinophils % (Manual) 1 (0-4) % Nucleated RBC % 2 H (0-0) % Platelet Estimate Normal (NORMAL) Large Platelets Present Polychromasia Slight Hypochromasia (manual) Moderate Poikilocytosis (manual Slight Anisocytosis (manual) Slight Microcytosis (manual) Slight Macrocytosis (manual) Slight Target Cells Slight Tear Drop Cells Slight Ovalocytes Slight Puncture Site pCO2 (35-45) mm/Hg pO2 (80-100) mm/Hg HCO3 (21-28) mmol/L ABG pH (7.35-7.45) ABG Total CO2 (22-28) mmol/L ABG O2 Saturation (95-98) % ABG Base Excess (-2.0-3.0) mmol/L ABG Hemoglobin (11.7-17.4) g/dL ABG Carboxyhemoglobin (0.5-1.5) % POC ABG HHb (Measured) (0.0-5.0) % ABG Methemoglobin (0.0-3.0) % Bertin Test ABG Potassium (3.6-5.2) mmol/L A-a O2 Difference mm/Hg Respiratory Index Hgb O2 Saturation (95.0-98.0) % Sodium 134 (132-148) mmol/l Chloride 95 L (98-107) mmol/L Glucose (75-110) mg/dl Lactate (0.7-2.1) mmol/L Vent Mode Mechanical Rate FiO2 % Tidal Volume PEEP Potassium 4.6 (3.6-5.2) mmol/L Carbon Dioxide 33 H (22-30) mmol/L Anion Gap 11 (10-20) BUN 31 H (9-20) mg/dL Creatinine 2.4 H (0.8-1.5) mg/dL Est GFR ( Amer) 33 Est GFR (Non-Af Amer) 27 POC Glucose (mg/dL) 69 (65-110) mg/dL Random Glucose 53 L D (75-110) mg/dL Calcium 8.2 L (8.6-10.4) mg/dl Phosphorus 3.5 (2.5-4.5) mg/dL Magnesium 2.0 (1.6-2.3) mg/dL Total Bilirubin 1.2 (0.2-1.3) mg/dL AST 44 (17-59) U/L ALT < 6 L D (21-72) U/L Alkaline Phosphatase 119 (38-126) U/L Troponin I (0.00-0.120) ng/mL Total Protein 7.1 (6.3-8.3) g/dL Albumin 3.6 (3.5-5.0) g/dL Globulin 3.5 (2.2-3.9) gm/dL Albumin/Globulin Ratio 1.0 (1.0-2.1) Arterial Blood Potassium (3.6-5.2) mmol/L Ur Random Sodium mmol/L 06/27/18 06/27/18 06/27/18 Range/Units 05:40 05:24 02:11 WBC (4.8-10.8) K/uL RBC (4.40-5.90) Mil/uL Hgb (12.0-18.0) g/dL Hct (35.0-51.0) % MCV (80.0-94.0) fL MCH (27.0-31.0) pg MCHC (33.0-37.0) g/dL RDW (11.5-14.5) % Plt Count (130-400) K/uL MPV (7.2-11.7) fL Neut % (Auto) (50.0-75.0) % Lymph % (Auto) (20.0-40.0) % [place] % (Auto) (0.0-10.0) % Eos % (Auto) (0.0-4.0) % Baso % (Auto) (0.0-2.0) % Neut # (Auto) (1.8-7.0) K/uL Lymph # (Auto) (1.0-4.3) K/uL [place] # (Auto) (0.0-0.8) K/uL Eos # (Auto) (0.0-0.7) K/uL Baso # (Auto) (0.0-0.2) K/uL Neutrophils % (Manual) (50-75) % Lymphocytes % (Manual) (20-40) % Monocytes % (Manual) (0-10) % Eosinophils % (Manual) (0-4) % Nucleated RBC % (0-0) % Platelet Estimate (NORMAL) Large Platelets Polychromasia Hypochromasia (manual) Poikilocytosis (manual Anisocytosis (manual) Microcytosis (manual) Macrocytosis (manual) Target Cells Tear Drop Cells Ovalocytes Puncture Site Rr pCO2 49 H (35-45) mm/Hg pO2 95 (80-100) mm/Hg HCO3 30.0 H (21-28) mmol/L ABG pH 7.42 (7.35-7.45) ABG Total CO2 33.3 H (22-28) mmol/L ABG O2 Saturation 99.1 H (95-98) % ABG Base Excess 6.5 H (-2.0-3.0) mmol/L ABG Hemoglobin 8.7 L (11.7-17.4) g/dL ABG Carboxyhemoglobin 2.5 H (0.5-1.5) % POC ABG HHb (Measured) 0.9 (0.0-5.0) % ABG Methemoglobin 0.6 (0.0-3.0) % Bertin Test Pos ABG Potassium (3.6-5.2) mmol/L A-a O2 Difference 557.0 mm/Hg Respiratory Index 5.9 Hgb O2 Saturation 96.0 (95.0-98.0) % Sodium (132-148) mmol/l Chloride (98-107) mmol/L Glucose (75-110) mg/dl Lactate (0.7-2.1) mmol/L Vent Mode Prvc Mechanical Rate 20 FiO2 100.0 % Tidal Volume 500 PEEP 5 Potassium (3.6-5.2) mmol/L Carbon Dioxide (22-30) mmol/L Anion Gap (10-20) BUN (9-20) mg/dL Creatinine (0.8-1.5) mg/dL Est GFR ( Amer) Est GFR (Non-Af Amer) POC Glucose (mg/dL) 67 90 (65-110) mg/dL Random Glucose (75-110) mg/dL Calcium (8.6-10.4) mg/dl Phosphorus (2.5-4.5) mg/dL Magnesium (1.6-2.3) mg/dL Total Bilirubin (0.2-1.3) mg/dL AST (17-59) U/L ALT (21-72) U/L Alkaline Phosphatase (38-126) U/L Troponin I (0.00-0.120) ng/mL Total Protein (6.3-8.3) g/dL Albumin (3.5-5.0) g/dL Globulin (2.2-3.9) gm/dL Albumin/Globulin Ratio (1.0-2.1) Arterial Blood Potassium (3.6-5.2) mmol/L Ur Random Sodium mmol/L 06/27/18 06/27/18 06/26/18 Range/Units 00:23 00:19 20:52 WBC (4.8-10.8) K/uL RBC (4.40-5.90) Mil/uL Hgb (12.0-18.0) g/dL Hct (35.0-51.0) % MCV (80.0-94.0) fL MCH (27.0-31.0) pg MCHC (33.0-37.0) g/dL RDW (11.5-14.5) % Plt Count (130-400) K/uL MPV (7.2-11.7) fL Neut % (Auto) (50.0-75.0) % Lymph % (Auto) (20.0-40.0) % [place] % (Auto) (0.0-10.0) % Eos % (Auto) (0.0-4.0) % Baso % (Auto) (0.0-2.0) % Neut # (Auto) (1.8-7.0) K/uL Lymph # (Auto) (1.0-4.3) K/uL [place] # (Auto) (0.0-0.8) K/uL Eos # (Auto) (0.0-0.7) K/uL Baso # (Auto) (0.0-0.2) K/uL Neutrophils % (Manual) (50-75) % Lymphocytes % (Manual) (20-40) % Monocytes % (Manual) (0-10) % Eosinophils % (Manual) (0-4) % Nucleated RBC % (0-0) % Platelet Estimate (NORMAL) Large Platelets Polychromasia Hypochromasia (manual) Poikilocytosis (manual Anisocytosis (manual) Microcytosis (manual) Macrocytosis (manual) Target Cells Tear Drop Cells Ovalocytes Puncture Site Lb pCO2 63 H (35-45) mm/Hg pO2 56 L (80-100) mm/Hg HCO3 28.8 H (21-28) mmol/L ABG pH 7.33 L (7.35-7.45) ABG Total CO2 35.1 H (22-28) mmol/L ABG O2 Saturation 89.3 L (95-98) % ABG Base Excess 5.3 H (-2.0-3.0) mmol/L ABG Hemoglobin (11.7-17.4) g/dL ABG Carboxyhemoglobin (0.5-1.5) % POC ABG HHb (Measured) (0.0-5.0) % ABG Methemoglobin (0.0-3.0) % Bertin Test Na ABG Potassium 4.5 (3.6-5.2) mmol/L A-a O2 Difference 578.0 mm/Hg Respiratory Index 10.3 Hgb O2 Saturation (95.0-98.0) % Sodium 136.0 (132-148) mmol/l Chloride 100.0 (98-107) mmol/L Glucose 64 L (75-110) mg/dl Lactate 2.5 H (0.7-2.1) mmol/L Vent Mode Prvc Mechanical Rate 14 FiO2 100.0 % Tidal Volume 500 PEEP 5 Potassium (3.6-5.2) mmol/L Carbon Dioxide (22-30) mmol/L Anion Gap (10-20) BUN (9-20) mg/dL Creatinine (0.8-1.5) mg/dL Est GFR ( Amer) Est GFR (Non-Af Amer) POC Glucose (mg/dL) 57 L 61 L (65-110) mg/dL Random Glucose (75-110) mg/dL Calcium (8.6-10.4) mg/dl Phosphorus (2.5-4.5) mg/dL Magnesium (1.6-2.3) mg/dL Total Bilirubin (0.2-1.3) mg/dL AST (17-59) U/L ALT (21-72) U/L Alkaline Phosphatase (38-126) U/L Troponin I (0.00-0.120) ng/mL Total Protein (6.3-8.3) g/dL Albumin (3.5-5.0) g/dL Globulin (2.2-3.9) gm/dL Albumin/Globulin Ratio (1.0-2.1) Arterial Blood Potassium 4.5 (3.6-5.2) mmol/L Ur Random Sodium mmol/L 06/26/18 06/26/18 Range/Units 18:45 17:29 WBC (4.8-10.8) K/uL RBC (4.40-5.90) Mil/uL Hgb (12.0-18.0) g/dL Hct (35.0-51.0) % MCV (80.0-94.0) fL MCH (27.0-31.0) pg MCHC (33.0-37.0) g/dL RDW (11.5-14.5) % Plt Count (130-400) K/uL MPV (7.2-11.7) fL Neut % (Auto) (50.0-75.0) % Lymph % (Auto) (20.0-40.0) % Newton % (Auto) (0.0-10.0) % Eos % (Auto) (0.0-4.0) % Baso % (Auto) (0.0-2.0) % Neut # (Auto) (1.8-7.0) K/uL Lymph # (Auto) (1.0-4.3) K/uL Newton # (Auto) (0.0-0.8) K/uL Eos # (Auto) (0.0-0.7) K/uL Baso # (Auto) (0.0-0.2) K/uL Neutrophils % (Manual) (50-75) % Lymphocytes % (Manual) (20-40) % Monocytes % (Manual) (0-10) % Eosinophils % (Manual) (0-4) % Nucleated RBC % (0-0) % Platelet Estimate (NORMAL) Large Platelets Polychromasia Hypochromasia (manual) Poikilocytosis (manual Anisocytosis (manual) Microcytosis (manual) Macrocytosis (manual) Target Cells Tear Drop Cells Ovalocytes Puncture Site pCO2 (35-45) mm/Hg pO2 (80-100) mm/Hg HCO3 (21-28) mmol/L ABG pH (7.35-7.45) ABG Total CO2 (22-28) mmol/L ABG O2 Saturation (95-98) % ABG Base Excess (-2.0-3.0) mmol/L ABG Hemoglobin (11.7-17.4) g/dL ABG Carboxyhemoglobin (0.5-1.5) % POC ABG HHb (Measured) (0.0-5.0) % ABG Methemoglobin (0.0-3.0) % Bertin Test ABG Potassium (3.6-5.2) mmol/L A-a O2 Difference mm/Hg Respiratory Index Hgb O2 Saturation (95.0-98.0) % Sodium (132-148) mmol/l Chloride (98-107) mmol/L Glucose (75-110) mg/dl Lactate (0.7-2.1) mmol/L Vent Mode Mechanical Rate FiO2 % Tidal Volume PEEP Potassium (3.6-5.2) mmol/L Carbon Dioxide (22-30) mmol/L Anion Gap (10-20) BUN (9-20) mg/dL Creatinine (0.8-1.5) mg/dL Est GFR ( Amer) Est GFR (Non-Af Amer) POC Glucose (mg/dL) 77 (65-110) mg/dL Random Glucose (75-110) mg/dL Calcium (8.6-10.4) mg/dl Phosphorus (2.5-4.5) mg/dL Magnesium (1.6-2.3) mg/dL Total Bilirubin (0.2-1.3) mg/dL AST (17-59) U/L ALT (21-72) U/L Alkaline Phosphatase (38-126) U/L Troponin I (0.00-0.120) ng/mL Total Protein (6.3-8.3) g/dL Albumin (3.5-5.0) g/dL Globulin (2.2-3.9) gm/dL Albumin/Globulin Ratio (1.0-2.1) Arterial Blood Potassium (3.6-5.2) mmol/L Ur Random Sodium 42 mmol/L Laboratory Results - last 24 hr 06/26/18 06/26/18 06/26/18 17:29 18:45 20:52 WBC RBC Hgb Hct MCV MCH MCHC RDW Plt Count MPV Neut % (Auto) Lymph % (Auto) Newton % (Auto) Eos % (Auto) Baso % (Auto) Neut # (Auto) Lymph # (Auto) Newton # (Auto) Eos # (Auto) Baso # (Auto) Neutrophils % (Manual) Lymphocytes % (Manual) Monocytes % (Manual) Eosinophils % (Manual) Nucleated RBC % Platelet Estimate Large Platelets Polychromasia Hypochromasia (manual) Poikilocytosis (manual Anisocytosis (manual) Microcytosis (manual) Macrocytosis (manual) Target Cells Tear Drop Cells Ovalocytes Puncture Site Lb pCO2 63 H pO2 56 L HCO3 28.8 H ABG pH 7.33 L ABG Total CO2 35.1 H ABG O2 Saturation 89.3 L ABG Base Excess 5.3 H ABG Hemoglobin ABG Carboxyhemoglobin POC ABG HHb (Measured) ABG Methemoglobin Bertin Test Na ABG Potassium 4.5 A-a O2 Difference 578.0 Respiratory Index 10.3 Hgb O2 Saturation Sodium 136.0 Chloride 100.0 Glucose 64 L Lactate 2.5 H Vent Mode Prvc Mechanical Rate 14 FiO2 100.0 Tidal Volume 500 PEEP 5 Potassium Carbon Dioxide Anion Gap BUN Creatinine Est GFR ( Amer) Est GFR (Non-Af Amer) POC Glucose (mg/dL) 77 Random Glucose Calcium Phosphorus Magnesium Total Bilirubin AST ALT Alkaline Phosphatase Troponin I Total Protein Albumin Globulin Albumin/Globulin Ratio Arterial Blood Potassium 4.5 Ur Random Sodium 42 06/27/18 06/27/18 06/27/18 00:19 00:23 02:11 WBC RBC Hgb Hct MCV MCH MCHC RDW Plt Count MPV Neut % (Auto) Lymph % (Auto) Newton % (Auto) Eos % (Auto) Baso % (Auto) Neut # (Auto) Lymph # (Auto) Newton # (Auto) Eos # (Auto) Baso # (Auto) Neutrophils % (Manual) Lymphocytes % (Manual) Monocytes % (Manual) Eosinophils % (Manual) Nucleated RBC % Platelet Estimate Large Platelets Polychromasia Hypochromasia (manual) Poikilocytosis (manual Anisocytosis (manual) Microcytosis (manual) Macrocytosis (manual) Target Cells Tear Drop Cells Ovalocytes Puncture Site pCO2 pO2 HCO3 ABG pH ABG Total CO2 ABG O2 Saturation ABG Base Excess ABG Hemoglobin ABG Carboxyhemoglobin POC ABG HHb (Measured) ABG Methemoglobin Bertin Test ABG Potassium A-a O2 Difference Respiratory Index Hgb O2 Saturation Sodium Chloride Glucose Lactate Vent Mode Mechanical Rate FiO2 Tidal Volume PEEP Potassium Carbon Dioxide Anion Gap BUN Creatinine Est GFR ( Amer) Est GFR (Non-Af Amer) POC Glucose (mg/dL) 61 L 57 L 90 Random Glucose Calcium Phosphorus Magnesium Total Bilirubin AST ALT Alkaline Phosphatase Troponin I Total Protein Albumin Globulin Albumin/Globulin Ratio Arterial Blood Potassium Ur Random Sodium 06/27/18 06/27/18 06/27/18 05:24 05:40 05:44 WBC RBC Hgb Hct MCV MCH MCHC RDW Plt Count MPV Neut % (Auto) Lymph % (Auto) Newton % (Auto) Eos % (Auto) Baso % (Auto) Neut # (Auto) Lymph # (Auto) Newton # (Auto) Eos # (Auto) Baso # (Auto) Neutrophils % (Manual) Lymphocytes % (Manual) Monocytes % (Manual) Eosinophils % (Manual) Nucleated RBC % Platelet Estimate Large Platelets Polychromasia Hypochromasia (manual) Poikilocytosis (manual Anisocytosis (manual) Microcytosis (manual) Macrocytosis (manual) Target Cells Tear Drop Cells Ovalocytes Puncture Site Rr pCO2 49 H pO2 95 HCO3 30.0 H ABG pH 7.42 ABG Total CO2 33.3 H ABG O2 Saturation 99.1 H ABG Base Excess 6.5 H ABG Hemoglobin 8.7 L ABG Carboxyhemoglobin 2.5 H POC ABG HHb (Measured) 0.9 ABG Methemoglobin 0.6 Bertin Test Pos ABG Potassium A-a O2 Difference 557.0 Respiratory Index 5.9 Hgb O2 Saturation 96.0 Sodium Chloride Glucose Lactate Vent Mode Prvc Mechanical Rate 20 FiO2 100.0 Tidal Volume 500 PEEP 5 Potassium Carbon Dioxide Anion Gap BUN Creatinine Est GFR ( Amer) Est GFR (Non-Af Amer) POC Glucose (mg/dL) 67 69 Random Glucose Calcium Phosphorus Magnesium Total Bilirubin AST ALT Alkaline Phosphatase Troponin I Total Protein Albumin Globulin Albumin/Globulin Ratio Arterial Blood Potassium Ur Random Sodium 06/27/18 06/27/18 06/27/18 06:15 06:15 07:54 WBC 8.8 RBC 3.31 L Hgb 8.7 L Hct 27.9 L MCV 84.4 MCH 26.2 L MCHC 31.0 L RDW 22.7 H Plt Count 231 MPV 8.1 Neut % (Auto) 72.6 Lymph % (Auto) 8.3 L Newton % (Auto) 17.9 H Eos % (Auto) 0.8 Baso % (Auto) 0.4 Neut # (Auto) 6.4 Lymph # (Auto) 0.7 L Newton # (Auto) 1.6 H Eos # (Auto) 0.1 Baso # (Auto) 0.0 Neutrophils % (Manual) 72 Lymphocytes % (Manual) 6 L Monocytes % (Manual) 21 H Eosinophils % (Manual) 1 Nucleated RBC % 2 H Platelet Estimate Normal Large Platelets Present Polychromasia Slight Hypochromasia (manual) Moderate Poikilocytosis (manual Slight Anisocytosis (manual) Slight Microcytosis (manual) Slight Macrocytosis (manual) Slight Target Cells Slight Tear Drop Cells Slight Ovalocytes Slight Puncture Site pCO2 pO2 HCO3 ABG pH ABG Total CO2 ABG O2 Saturation ABG Base Excess ABG Hemoglobin ABG Carboxyhemoglobin POC ABG HHb (Measured) ABG Methemoglobin Bertin Test ABG Potassium A-a O2 Difference Respiratory Index Hgb O2 Saturation Sodium 134 Chloride 95 L Glucose Lactate Vent Mode Mechanical Rate FiO2 Tidal Volume PEEP Potassium 4.6 Carbon Dioxide 33 H Anion Gap 11 BUN 31 H Creatinine 2.4 H Est GFR ( Amer) 33 Est GFR (Non-Af Amer) 27 POC Glucose (mg/dL) 127 H Random Glucose 53 L D Calcium 8.2 L Phosphorus 3.5 Magnesium 2.0 Total Bilirubin 1.2 AST 44 ALT < 6 L D Alkaline Phosphatase 119 Troponin I Total Protein 7.1 Albumin 3.6 Globulin 3.5 Albumin/Globulin Ratio 1.0 Arterial Blood Potassium Ur Random Sodium 06/27/18 06/27/18 10:05 11:27 WBC RBC Hgb Hct MCV MCH MCHC RDW Plt Count MPV Neut % (Auto) Lymph % (Auto) Newton % (Auto) Eos % (Auto) Baso % (Auto) Neut # (Auto) Lymph # (Auto) Newton # (Auto) Eos # (Auto) Baso # (Auto) Neutrophils % (Manual) Lymphocytes % (Manual) Monocytes % (Manual) Eosinophils % (Manual) Nucleated RBC % Platelet Estimate Large Platelets Polychromasia Hypochromasia (manual) Poikilocytosis (manual Anisocytosis (manual) Microcytosis (manual) Macrocytosis (manual) Target Cells Tear Drop Cells Ovalocytes Puncture Site pCO2 pO2 HCO3 ABG pH ABG Total CO2 ABG O2 Saturation ABG Base Excess ABG Hemoglobin ABG Carboxyhemoglobin POC ABG HHb (Measured) ABG Methemoglobin Bertin Test ABG Potassium A-a O2 Difference Respiratory Index Hgb O2 Saturation Sodium Chloride Glucose Lactate Vent Mode Mechanical Rate FiO2 Tidal Volume PEEP Potassium Carbon Dioxide Anion Gap BUN Creatinine Est GFR ( Amer) Est GFR (Non-Af Amer) POC Glucose (mg/dL) 82 Random Glucose Calcium Phosphorus Magnesium Total Bilirubin AST ALT Alkaline Phosphatase Troponin I 0.5940 H* Total Protein Albumin Globulin Albumin/Globulin Ratio Arterial Blood Potassium Ur Random Sodium Radiology Impressions: Radiology Impressions Chest X-Ray 06/27/18 07:00 IMPRESSION: In situ ETT as above. Bilateral effusions with suspected bibasilar atelectasis and/or infiltrates. . The central pulmonary vasculature is slightly increased; rule out mild chronic compensated pulmonary venous congestion. Critical Care Progress Note - Nutrition Nutrition: Nutrition Category Date Time Status NPO Diet [DIET] Diets 06/26/18 Breakfast Active Attending/Attestation - Attestation I have personally seen and examined this patient.: Yes I have fully participated in the care of the patient.: Yes I have reviewed all pertinent clinical information: Yes Notes (Text): 06/27/18 17:29 Patient seen and examined in the intensive care unit. Patient was intubated yesterday during the endoscopy procedure Saturation 90% on FiO2 100% Bubble study positive for pulmonary shunting secondary to cirrhosis of liver Continue present treatment CAT scan of the abdomen
[2018-06-27] MEDS: Ferric Sodium Gluconat Complex 62.5 mg/5 ml Vial IVPB SCH (09:10)
[2018-06-27] MEDS: Enoxaparin 40 mg Syringe SC SCH (09:12)
[2018-06-27] MEDS: DEXTROSE 5% IVPB SCH ×2 (09:13→21:41)
[2018-06-27] MEDS: CEFTAROLINE IVPB SCH ×2 (09:13→21:41)
[2018-06-27] MEDS: WATER IVPB SCH ×2 (09:13→21:41)
--- NOTE | 2018-06-27 10:21 | CP.PCM.PN ---
<Kristopher Landin - Last Filed: 06/27/18 13:11> Subjective - Date & Time of Evaluation Date of Evaluation: 06/27/18 Time of Evaluation: 07:00 - Subjective Subjective: Nephro Progress Note for Dr. Archer Service Kristopher Landin DO, PGY-3 Patient seen and examined at bedside in the ICU. Underwent EGD yesterday, but abruptly desatted to 20% post-procedure, requiring intubation and ventilation. Now on ventilator on ICU, with severe hypoxia requiring 100% FiO2 on the ventilator. Renal function worsening (Cr. increased to 2.4), and trop positive at 0.3490. Requiring pressor support, currently on phenylephrine. Objective - Vital Signs/Intake and Output Vital Signs (last 24 hours): Temp Pulse Resp BP Pulse Ox 97.7 F 85 20 102/66 96 06/27/18 08:00 06/27/18 09:02 06/27/18 09:02 06/27/18 09:11 06/27/18 09:02 Intake and Output: 06/27/18 06/27/18 06:59 18:59 Intake Total 1203.2 551 Output Total 125 20 Balance 1078.2 531 - Medications Medications: Current Medications Acetaminophen (Tylenol 325mg Tab) 325 mg PO Q6H PRN PRN Reason: Pain, Mild (1-3) Al Hydrox/Mg Hydrox/Simethicone (Maalox Plus 30 Ml) 30 ml PO Q4H PRN PRN Reason: Heartburn Aspirin (Aspirin Chewable) 81 mg PO DAILY [facility] Last Admin: 06/24/18 09:15 Dose: 81 mg Carvedilol (Coreg) 3.125 mg PO BID [facility] Last Admin: 06/27/18 09:10 Dose: Not Given Enoxaparin Sodium (Lovenox) 40 mg SC DAILY [facility] Last Admin: 06/27/18 09:12 Dose: 40 mg Ferric Sodium Gluconate Complex (Ferrlecit) 125 mg IVPB DAILY [facility] Stop: 07/02/18 10:01 Last Admin: 06/27/18 09:10 Dose: 125 mg Furosemide (Lasix) 60 mg IVP DAILY [facility] Last Admin: 06/27/18 09:11 Dose: 60 mg Ceftaroline Fosamil 400 mg/ (Dextrose) 100 mls @ 100 mls/hr IVPB Q12H [facility]; Protocol Last Admin: 06/27/18 09:13 Dose: 100 mls/hr Phenylephrine HCl 30 mg/ (Sodium Chloride) 253 mls @ 10.12 mls/hr IV .Q24H PRN; Protocol PRN Reason: TITRATE PER MD ORDER Last Admin: 06/27/18 08:45 Dose: 100 mcg/min, 50.6 mls/hr Fentanyl Citrate 2,500 mcg/ (Sodium Chloride) 250 mls @ 24.11 mls/hr IV .[id number] PRN; Protocol PRN Reason: PER TITRATION Last Titration: 06/26/18 19:45 Dose: 1 mcg/kg/hr, 12.06 mls/hr Lorazepam (Ativan) 1 mg IVP Q4H PRN PRN Reason: Anxiety Last Admin: 06/27/18 06:38 Dose: 1 mg Pantoprazole Sodium (Protonix Inj) 40 mg IVP DAILY [facility] Last Admin: 06/27/18 09:55 Dose: 40 mg Rosuvastatin Calcium (Crestor) 5 mg PO HS [facility] Last Admin: 06/26/18 22:20 Dose: Not Given Sacubitril/Valsartan (Entresto 24 Mg-26 Mg) 1 tab PO DAILY [facility] Last Admin: 06/25/18 09:35 Dose: 1 tab - Labs Labs: 06/27/18 06:15 06/27/18 06:15 PT 13.9 SECONDS (9.7-12.2) H 06/23/18 16:39 INR 1.3 06/23/18 16:39 APTT 41 SECONDS (21-34) H 06/23/18 16:39 - Additional Findings Additional findings: - Constitutional Appears: Chronically Ill, Sedated/intubated - Head Exam Head Exam: ATRAUMATIC, NORMAL INSPECTION, NORMOCEPHALIC - Eye Exam Eye Exam: Normal appearance. absent: Conjunctival injection, Scleral icterus - ENT Exam ENT Exam: ETT in place and secured, bite guard in place, spontaneous chewing- like motions of jaw intermittently appreciated - Neck Exam Neck Exam: Supple, no lymphadenopathy - Respiratory Exam Respiratory Exam: Intubated and mechanically ventilated, overbreathing the ventilator rate, breath sounds present in all kaur - Cardiovascular Exam Cardiovascular Exam: REGULAR RHYTHM, RRR, +S1, +S2, Murmur (holosystolic murmur). absent: Bradycardia, Tachycardia, Irregular Rhythm, JVD, +S4 - GI/Abdominal Exam distended with fluid wave, but not rigid, able to compress with palpation, not tender to palpation no caput medusa appreciated - Extremities Exam Extremities Exam: Normal Capillary Refill, Pedal Edema (+2 pitting edema in bilateral LE at ankles to knees), +1 radials and dorsalis pedis pulses bilaterally - Neurological Exam intubated and sedated, some spontaneous jaw movements noted but no appreciable movements otherwise, not following commands, GCS: 5T - Psychiatric Exam Psychiatric exam: Normal Affect, Normal Mood - Skin Skin Exam: Dry, Intact, Normal Color, Warm Assessment and Plan - Assessment and Plan (Free Text) Assessment: This is a 68yo AA M with PMH of Anemia, chronic GI bleeding, liver cirrhosis, HTN, DM, and HFrEF who presented from [place] with elevated vanco trough and anemia requiring transfusion. Nephro was consulted for acute renal failure overlying CKD. Now intubated/sedated in the ICU due to acute severe hypoxic respiratory failure. Plan: 1) Hypoxic respiratory failure s/p intubation/ventilation 2) HFrEF with likely exacerbation 3) Cirrhosis 4) DM 5) Chronic LE wounds 6) Anemia 7) Chronic GI bleed hx 8) Acute renal failure ddx: cardiorenal vs drug induced vs hypoperfusion 2/2 severe anemia -Baseline Cr 1.3-1.4, 1.8 on admission, worsened to 2.4 today Urine sodium 48, likely pre-renal etiology in setting of shock requiring pressor support -Minimal protein in urine, and in setting of HFrEF and RV pressure overload, highly suspicious for cardiorenal syndrome Continue diuresis in setting of cardiorenal, put out another 1400cc yesterday, continue Lasix 60mg IV q12 -Vanco trough 27 at [place], 20.2 on admission, so may be contributing to renal insult switched to ceftaroline by ID, recommend dosing based on creatinine clearance -chronic anemia, Hgb 8.7 today, no signs of bleeding, but esophageal varices 2/2 cirrhosis so high risk for bleed -Shock requiring pressor support, on phenylephrine -daily weights ordered -continue EPO and iron supplementation Iron Studies: iron 128, % sat 30, TIBC 411, Ferritin 54.4 Patient reviewed and discussed with attending, Dr. Archer. <Reinier Archer - Last Filed: 06/28/18 07:31> Objective - Vital Signs/Intake and Output Vital Signs (last 24 hours): Temp Pulse Resp BP Pulse Ox 97.5 F L 77 20 71/39 L 61 L 06/28/18 00:00 06/28/18 04:00 06/28/18 04:00 06/28/18 03:24 06/28/18 02:51 Intake and Output: 06/28/18 06/28/18 06:59 18:59 Intake Total 1504.7 Output Total 55 Balance 1449.7 - Medications Medications: Current Medications Acetaminophen (Tylenol 325mg Tab) 325 mg PO Q6H PRN PRN Reason: Pain, Mild (1-3) Aspirin (Aspirin Chewable) 81 mg PO DAILY [facility] Last Admin: 06/24/18 09:15 Dose: 81 mg Carvedilol (Coreg) 3.125 mg PO BID [facility] Last Admin: 06/27/18 17:14 Dose: Not Given Enoxaparin Sodium (Lovenox) 40 mg SC DAILY [facility] Last Admin: 06/27/18 09:12 Dose: 40 mg Ferric Sodium Gluconate Complex (Ferrlecit) 125 mg IVPB DAILY [facility] Stop: 07/02/18 10:01 Last Admin: 06/27/18 09:10 Dose: 125 mg Furosemide (Lasix) 60 mg IVP DAILY [facility] Last Admin: 06/27/18 09:11 Dose: 60 mg Ceftaroline Fosamil 400 mg/ (Dextrose) 100 mls @ 100 mls/hr IVPB Q12H [facility]; Protocol Last Admin: 06/27/18 21:41 Dose: 100 mls/hr Phenylephrine HCl 30 mg/ (Sodium Chloride) 253 mls @ 10.12 mls/hr IV .Q24H PRN; Protocol PRN Reason: TITRATE PER MD ORDER Last Titration: 06/28/18 03:00 Dose: 180 mcg/min, 91.08 mls/hr Fentanyl Citrate 2,500 mcg/ (Sodium Chloride) 250 mls @ 24.11 mls/hr IV .[id number] PRN; Protocol PRN Reason: PER TITRATION Last Titration: 06/28/18 02:00 Dose: 0 mcg/kg/hr, 0 mls/hr Norepinephrine Bitartrate 8 mg (/ Dextrose) 258 mls @ 7.74 mls/hr IV .Q24H PRN; Protocol PRN Reason: TITRATE PER MD ORDER Last Admin: 06/28/18 03:24 Dose: 4 mcg/min, 7.74 mls/hr Lorazepam (Ativan) 1 mg IVP Q4H PRN PRN Reason: Anxiety Last Admin: 06/27/18 23:30 Dose: 1 mg Pantoprazole Sodium (Protonix Inj) 40 mg IVP DAILY [facility] Last Admin: 06/27/18 09:55 Dose: 40 mg Rosuvastatin Calcium (Crestor) 5 mg PO HS [facility] Last Admin: 06/27/18 21:41 Dose: 5 mg Sacubitril/Valsartan (Entresto 24 Mg-26 Mg) 1 tab PO DAILY [facility] Last Admin: 06/25/18 09:35 Dose: 1 tab - Labs Labs: 06/27/18 06:15 06/27/18 06:15 PT 13.9 SECONDS (9.7-12.2) H 06/23/18 16:39 INR 1.3 06/23/18 16:39 APTT 41 SECONDS (21-34) H 06/23/18 16:39 Attending/Attestation - Attestation I have personally seen and examined this patient.: Yes I have fully participated in the care of the patient.: Yes I have reviewed all pertinent clinical information, including history, physical exam and plan: Yes Notes (Text): Patient seen and examined; I agree with the resident's note as above with the following additions/edits: Patient with severe systolic dysfunction, initially admitted with profound anemia, nephrology following for HELENE; Patient with acute hypoxemic resp failure following EGD, still requiring 100% FIO2; discussed with building pressure washer, echo showing R->L shunting on bubble study consistent with hepatopulmonary sydrome; overall prognosis extremely poor; Renal failure progressing with serum creat up to 2.4 today; non-oliguric renal failure with UO ~40 cc/hr on modest diuretics (lasix IV 60 mg daily); hypotensive since yesterday, on phenylephrine; unclear if there is component of cardiogenic shock in the setting of severe systolic dysfunction and elevated troponin levels; -Will continue diuresis to regulate volume status; no urgent indication for HD at this time;
--- NOTE | 2018-06-27 10:50 | CARD ---
APPROVED REPORT Date of service: 06/26/2018 EKG Measurement Heart [id number] <Conclusion> Ventricular-paced rhythm Abnormal ECG
--- NOTE | 2018-06-27 16:30 | CP.PCM.PN ---
Subjective - Date & Time of Evaluation Date of Evaluation: 06/27/18 Time of Evaluation: 16:28 - Subjective Subjective: Podiatry Progress Note for Dr. Montoya 68M seen and evaluated at bedside with Dr. Montoya for b/l leg wounds. Patient is intubated at time of visit. Per nursing patient was experiencing respiratory distress and was transported to ICU as a result. Objective - Vital Signs/Intake and Output Vital Signs (last 24 hours): Temp Pulse Resp BP Pulse Ox 97.9 F 82 20 110/76 95 06/27/18 12:00 06/27/18 15:02 06/27/18 15:02 06/27/18 15:02 06/27/18 15:02 Intake and Output: 06/27/18 06/27/18 06:59 18:59 Intake Total 1333.2 942.3 Output Total 125 109 Balance 1208.2 833.3 - Medications Medications: Current Medications Acetaminophen (Tylenol 325mg Tab) 325 mg PO Q6H PRN PRN Reason: Pain, Mild (1-3) Al Hydrox/Mg Hydrox/Simethicone (Maalox Plus 30 Ml) 30 ml PO Q4H PRN PRN Reason: Heartburn Aspirin (Aspirin Chewable) 81 mg PO DAILY [facility] Last Admin: 06/24/18 09:15 Dose: 81 mg Carvedilol (Coreg) 3.125 mg PO BID [facility] Last Admin: 06/27/18 09:10 Dose: Not Given Enoxaparin Sodium (Lovenox) 40 mg SC DAILY [facility] Last Admin: 06/27/18 09:12 Dose: 40 mg Ferric Sodium Gluconate Complex (Ferrlecit) 125 mg IVPB DAILY [facility] Stop: 07/02/18 10:01 Last Admin: 06/27/18 09:10 Dose: 125 mg Furosemide (Lasix) 60 mg IVP DAILY [facility] Last Admin: 06/27/18 09:11 Dose: 60 mg Ceftaroline Fosamil 400 mg/ (Dextrose) 100 mls @ 100 mls/hr IVPB Q12H [facility]; Protocol Last Admin: 06/27/18 09:13 Dose: 100 mls/hr Phenylephrine HCl 30 mg/ (Sodium Chloride) 253 mls @ 10.12 mls/hr IV .Q24H PRN; Protocol PRN Reason: TITRATE PER MD ORDER Last Admin: 06/27/18 08:45 Dose: 100 mcg/min, 50.6 mls/hr Fentanyl Citrate 2,500 mcg/ (Sodium Chloride) 250 mls @ 24.11 mls/hr IV .[id number] PRN; Protocol PRN Reason: PER TITRATION Last Titration: 06/27/18 12:37 Dose: 1.5 mcg/kg/hr, 18.08 mls/hr Lorazepam (Ativan) 1 mg IVP Q4H PRN PRN Reason: Anxiety Last Admin: 06/27/18 12:35 Dose: 1 mg Pantoprazole Sodium (Protonix Inj) 40 mg IVP DAILY [facility] Last Admin: 06/27/18 09:55 Dose: 40 mg Rosuvastatin Calcium (Crestor) 5 mg PO HS [facility] Last Admin: 06/26/18 22:20 Dose: Not Given Sacubitril/Valsartan (Entresto 24 Mg-26 Mg) 1 tab PO DAILY [facility] Last Admin: 06/25/18 09:35 Dose: 1 tab - Labs Labs: 06/27/18 06:15 06/27/18 06:15 PT 13.9 SECONDS (9.7-12.2) H 06/23/18 16:39 INR 1.3 06/23/18 16:39 APTT 41 SECONDS (21-34) H 06/23/18 16:39 - Constitutional Appears: No Acute Distress - Extremities Exam Additional comments: LE focused exam Vasc: DP/PT pulses faintly palpable 1/4. Skin temperature warm to warm from proximal to distal WNL. CFT < 3 seconds to all digits. Minimal edema noted diffusely Neuro: Epicritic and protective sensation grossly diminished Derm: 2 wounds, each 0.5 cm x 0.5 cm x 0.1 cm ulceration noted to medial aspect of left leg with mixed fibrogranular wound base. Minimal serous drainage appreciated. No malodor, purulence, tracking, tunneling or undermining appreciated. No other clinical signs of infection noted. Right leg reveals very small anterior leg wound measuring 0.2 x 0.2 x 0.1 cm with granular base and no evidence of infection or bleeding appreciated MSK: No pain on palpation to ulceration site. No gross deformities noted Assessment and Plan - Assessment and Plan (Free Text) Assessment: 68M seen and evaluated at bedside with Dr. Montoya for b/l leg wounds Plan: Patient seen and evaluated with Dr. Montoya Afebrile, absent leukocytosis Continue abx per ID Wounds dressed with xeroform, DSD No plan for surgical intervention at this time Podiatry will continue to follow while patient in house
[2018-06-27] MEDS ORDERED: Iohexol 240 (50 ml) PO ONE (17:15)
[2018-06-27] MEDS ORDERED: Dextrose 50% SYRINGE Inj (50 ml) ONE (17:55)
--- NOTE | 2018-06-27 18:03 | CP.PCM.PN ---
Subjective - Date & Time of Evaluation Date of Evaluation: 06/27/18 Time of Evaluation: 18:00 - Subjective Subjective: PT REMAINS ON PRESSORS, HYPOTENSIVE AND SEDATED. PTS ABD LESS DISTENDED HOWEVER IT IS VERY FIRM AND TENDER. PT RESPONDS WITH GRIMACE TO PALPATION. CR INCREASING, MILDLY + TROP. CT SCAN NOT DONE YET DUE TO INSTABILITY OF PTS VITALS. Objective - Vital Signs/Intake and Output Vital Signs (last 24 hours): Temp Pulse Resp BP Pulse Ox 97.9 F 80 20 121/76 96 06/27/18 16:00 06/27/18 17:02 06/27/18 17:02 06/27/18 17:02 06/27/18 17:02 Intake and Output: 06/27/18 06/27/18 06:59 18:59 Intake Total 1333.2 1422.6 Output Total 125 149 Balance 1208.2 1273.6 - Medications Medications: Current Medications Acetaminophen (Tylenol 325mg Tab) 325 mg PO Q6H PRN PRN Reason: Pain, Mild (1-3) Al Hydrox/Mg Hydrox/Simethicone (Maalox Plus 30 Ml) 30 ml PO Q4H PRN PRN Reason: Heartburn Aspirin (Aspirin Chewable) 81 mg PO DAILY [facility] Last Admin: 06/24/18 09:15 Dose: 81 mg Carvedilol (Coreg) 3.125 mg PO BID [facility] Last Admin: 06/27/18 17:14 Dose: Not Given Enoxaparin Sodium (Lovenox) 40 mg SC DAILY [facility] Last Admin: 06/27/18 09:12 Dose: 40 mg Ferric Sodium Gluconate Complex (Ferrlecit) 125 mg IVPB DAILY [facility] Stop: 07/02/18 10:01 Last Admin: 06/27/18 09:10 Dose: 125 mg Furosemide (Lasix) 60 mg IVP DAILY [facility] Last Admin: 06/27/18 09:11 Dose: 60 mg Ceftaroline Fosamil 400 mg/ (Dextrose) 100 mls @ 100 mls/hr IVPB Q12H [facility]; Protocol Last Admin: 06/27/18 09:13 Dose: 100 mls/hr Phenylephrine HCl 30 mg/ (Sodium Chloride) 253 mls @ 10.12 mls/hr IV .Q24H PRN; Protocol PRN Reason: TITRATE PER MD ORDER Last Titration: 06/27/18 17:56 Dose: 90 mcg/min, 45.54 mls/hr Fentanyl Citrate 2,500 mcg/ (Sodium Chloride) 250 mls @ 24.11 mls/hr IV .[id number] PRN; Protocol PRN Reason: PER TITRATION Last Titration: 06/27/18 12:37 Dose: 1.5 mcg/kg/hr, 18.08 mls/hr Lorazepam (Ativan) 1 mg IVP Q4H PRN PRN Reason: Anxiety Last Admin: 06/27/18 12:35 Dose: 1 mg Pantoprazole Sodium (Protonix Inj) 40 mg IVP DAILY [facility] Last Admin: 06/27/18 09:55 Dose: 40 mg Rosuvastatin Calcium (Crestor) 5 mg PO HS [facility] Last Admin: 06/26/18 22:20 Dose: Not Given Sacubitril/Valsartan (Entresto 24 Mg-26 Mg) 1 tab PO DAILY [facility] Last Admin: 06/25/18 09:35 Dose: 1 tab - Labs Labs: 06/27/18 06:15 06/27/18 06:15 PT 13.9 SECONDS (9.7-12.2) H 06/23/18 16:39 INR 1.3 06/23/18 16:39 APTT 41 SECONDS (21-34) H 06/23/18 16:39 - Constitutional Appears: Well - Head Exam Head Exam: ATRAUMATIC, NORMAL INSPECTION, NORMOCEPHALIC - Eye Exam Eye Exam: EOMI, Normal appearance, PERRL. absent: Conjunctival injection, Nystagmus, Periorbital swelling, Periorbital tenderness, Scleral icterus Pupil Exam: NORMAL ACCOMODATION, PERRL - ENT Exam ENT Exam: Mucous Membranes Moist, Normal Exam. absent: Mucous Membranes Dry, Normal External Ear Exam, Normal Oropharynx, TM's Normal Bilaterally - Neck Exam Neck Exam: Full ROM, Normal Inspection. absent: Lymphadenopathy, Meningismus, Tenderness, Thyromegaly - Respiratory Exam Respiratory Exam: Rhonchi, Wheezes. absent: Accessory Muscle Use, Chest Wall Tenderness, Decreased Breath Sounds, Clear to Ausculation Bilateral, Prolonged Expiratory Phase, Rales, Respiratory Distress, Stridor, NORMAL BREATHING PATTERN Additional comments: VENTED - Cardiovascular Exam Cardiovascular Exam: Diastolic murmur, REGULAR RHYTHM, +S1, +S2, Murmur. absent: Bradycardia, Tachycardia, Clicks, Gallop, Irregular Rhythm, JVD, RRR, Rubs, +S4 - GI/Abdominal Exam GI & Abdominal Exam: Distended, Firm, Rigid, Tenderness, Hypoactive Bowel Sounds. absent: Bruit, Guarding, Soft, Diminished Bowel Sounds, Hernia, Hyperactive Bowel Sounds, Normal Bowel Sounds, Organomegaly, Pulsatile Mass, Rebound, Mass - Rectal Exam Rectal Exam: Deferred - Extremities Exam Extremities Exam: Normal Capillary Refill, Pedal Edema. absent: Calf Tenderness, Full ROM, Joint Swelling, Normal Inspection, Tenderness - Back Exam Back Exam: NORMAL INSPECTION. absent: CVA tenderness (L), CVA tenderness (R), Full ROM, muscle spasm, paraspinal tenderness, rash noted, tenderness, vertebral tenderness - Neurological Exam Additional comments: SEDATED ON VENT - Psychiatric Exam Psychiatric exam: Normal Affect, Normal Mood. absent: Agitated, Anxious, Depressed, Flat Affect, Homicidal Ideation, Manic, Suicidal Ideation - Skin Skin Exam: Dry, Intact, Normal Color, Warm. absent: Abrasion, Cyanosis, Diaphoretic, Erythema, Mottled, Pallor, Pallor, Petechiae, Rash, Urticaria, Vesicles Assessment and Plan (1) Respiratory failure Status: Acute (2) Liver cirrhosis Status: Chronic (3) Abdominal distension Status: Acute (4) Anemia Status: Acute (5) PHT (pulmonary hypertension) Status: Acute (6) AICD (automatic cardioverter/defibrillator) present Status: Chronic (7) Chronic ulcer of lower extremity Status: Chronic (8) Scrotal edema Status: Acute (9) Ascites Status: Acute (10) Abdominal distension Status: Acute (11) Bronchitis Status: Chronic (12) Pulmonary vascular obstructive disease (Eisenmenger's) Status: Acute - Assessment and Plan (Free Text) Plan: I DISCUSSED CASE WITH RN AND ICU PHYSICIANS. I SUSPECT SIGNIFICANT PATHOLOGY INTRA-ABDOMINAL. SHOULD HAVE CT TO FURTHER ELUCIDATE. I REVIEWED PTS ECHOS. PT HAS EF OF 35-40% WITH RV DILITATION AND RV FAILURE. PTS LATEST RVSP IS ABOVE 67 HIS IVC IS SEVERELY DILATED INDICATING A RAP OF 20 OR MORE. PT ALSO HAD A BUBBLE STUDY WHICH REVEALED RIGHT TO LEFT SHUNTING INDICATIVE OF EISENMENGERS PHYSIOLOGY AND LIKELY FIXED PHTN. WOULD KEEP PT ON DIURETICS. HOWEVER NEED TO DECREASE PAP ONCE PTS BP HAS RECOVERED. WOULD TRANSFUSE TO KEEP HB ABOVE 9. RESULTS OF ENDOSCOPY NOTED. 75 MIN TOTAL CARE TIME.
--- NOTE | 2018-06-27 19:46 | CP.PCM.PN ---
Subjective - Date & Time of Evaluation Date of Evaluation: 06/27/18 Time of Evaluation: 13:00 - Subjective Subjective: Vented Objective - Vital Signs/Intake and Output Vital Signs (last 24 hours): Temp Pulse Resp BP Pulse Ox 97.9 F 77 20 96/61 L 91 L 06/27/18 16:00 06/27/18 19:02 06/27/18 19:02 06/27/18 19:02 06/27/18 19:02 Intake and Output: 06/27/18 06/28/18 18:59 06:59 Intake Total 1485.7 63.1 Output Total 159 Balance 1326.7 63.1 - Medications Medications: Current Medications Acetaminophen (Tylenol 325mg Tab) 325 mg PO Q6H PRN PRN Reason: Pain, Mild (1-3) Aspirin (Aspirin Chewable) 81 mg PO DAILY [facility] Last Admin: 06/24/18 09:15 Dose: 81 mg Carvedilol (Coreg) 3.125 mg PO BID [facility] Last Admin: 06/27/18 17:14 Dose: Not Given Enoxaparin Sodium (Lovenox) 40 mg SC DAILY [facility] Last Admin: 06/27/18 09:12 Dose: 40 mg Ferric Sodium Gluconate Complex (Ferrlecit) 125 mg IVPB DAILY [facility] Stop: 07/02/18 10:01 Last Admin: 06/27/18 09:10 Dose: 125 mg Furosemide (Lasix) 60 mg IVP DAILY [facility] Last Admin: 06/27/18 09:11 Dose: 60 mg Ceftaroline Fosamil 400 mg/ (Dextrose) 100 mls @ 100 mls/hr IVPB Q12H [facility]; Protocol Last Admin: 06/27/18 09:13 Dose: 100 mls/hr Phenylephrine HCl 30 mg/ (Sodium Chloride) 253 mls @ 10.12 mls/hr IV .Q24H PRN; Protocol PRN Reason: TITRATE PER MD ORDER Last Titration: 06/27/18 17:56 Dose: 90 mcg/min, 45.54 mls/hr Fentanyl Citrate 2,500 mcg/ (Sodium Chloride) 250 mls @ 24.11 mls/hr IV .[id number] PRN; Protocol PRN Reason: PER TITRATION Last Titration: 06/27/18 12:37 Dose: 1.5 mcg/kg/hr, 18.08 mls/hr Lorazepam (Ativan) 1 mg IVP Q4H PRN PRN Reason: Anxiety Last Admin: 06/27/18 12:35 Dose: 1 mg Pantoprazole Sodium (Protonix Inj) 40 mg IVP DAILY [facility] Last Admin: 06/27/18 09:55 Dose: 40 mg Rosuvastatin Calcium (Crestor) 5 mg PO HS [facility] Last Admin: 06/26/18 22:20 Dose: Not Given Sacubitril/Valsartan (Entresto 24 Mg-26 Mg) 1 tab PO DAILY [facility] Last Admin: 06/25/18 09:35 Dose: 1 tab - Labs Labs: 06/27/18 06:15 06/27/18 06:15 PT 13.9 SECONDS (9.7-12.2) H 06/23/18 16:39 INR 1.3 06/23/18 16:39 APTT 41 SECONDS (21-34) H 06/23/18 16:39 - Head Exam Head Exam: ATRAUMATIC - Eye Exam Eye Exam: Normal appearance - ENT Exam ENT Exam: Mucous Membranes Dry - Respiratory Exam Respiratory Exam: Decreased Breath Sounds - Cardiovascular Exam Cardiovascular Exam: +S1, +S2 - GI/Abdominal Exam GI & Abdominal Exam: Normal Bowel Sounds - Extremities Exam Extremities Exam: Pedal Edema Assessment and Plan (1) Anemia Assessment & Plan: iron deficiency anemia desat during GI w/u s/p PRBC transfusion IV iron Status: Acute
--- NOTE | 2018-06-27 20:02 | CP.PCM.PN ---
Subjective - Date & Time of Evaluation Date of Evaluation: 06/27/18 - Subjective Subjective: patient seen today no nausea, no vomiting, no diarrhea, no fever, no sob Objective - Vital Signs/Intake and Output Vital Signs (last 24 hours): Temp Pulse Resp BP Pulse Ox 97.9 F 77 20 96/61 L 91 L 06/27/18 16:00 06/27/18 19:02 06/27/18 19:02 06/27/18 19:02 06/27/18 19:02 Intake and Output: 06/27/18 06/28/18 18:59 06:59 Intake Total 1485.7 63.1 Output Total 159 Balance 1326.7 63.1 - Medications Medications: Current Medications Acetaminophen (Tylenol 325mg Tab) 325 mg PO Q6H PRN PRN Reason: Pain, Mild (1-3) Aspirin (Aspirin Chewable) 81 mg PO DAILY [facility] Last Admin: 06/24/18 09:15 Dose: 81 mg Carvedilol (Coreg) 3.125 mg PO BID [facility] Last Admin: 06/27/18 17:14 Dose: Not Given Enoxaparin Sodium (Lovenox) 40 mg SC DAILY [facility] Last Admin: 06/27/18 09:12 Dose: 40 mg Ferric Sodium Gluconate Complex (Ferrlecit) 125 mg IVPB DAILY [facility] Stop: 07/02/18 10:01 Last Admin: 06/27/18 09:10 Dose: 125 mg Furosemide (Lasix) 60 mg IVP DAILY [facility] Last Admin: 06/27/18 09:11 Dose: 60 mg Ceftaroline Fosamil 400 mg/ (Dextrose) 100 mls @ 100 mls/hr IVPB Q12H [facility]; Protocol Last Admin: 06/27/18 09:13 Dose: 100 mls/hr Phenylephrine HCl 30 mg/ (Sodium Chloride) 253 mls @ 10.12 mls/hr IV .Q24H PRN; Protocol PRN Reason: TITRATE PER MD ORDER Last Titration: 06/27/18 17:56 Dose: 90 mcg/min, 45.54 mls/hr Fentanyl Citrate 2,500 mcg/ (Sodium Chloride) 250 mls @ 24.11 mls/hr IV .[id number] PRN; Protocol PRN Reason: PER TITRATION Last Titration: 06/27/18 12:37 Dose: 1.5 mcg/kg/hr, 18.08 mls/hr Lorazepam (Ativan) 1 mg IVP Q4H PRN PRN Reason: Anxiety Last Admin: 06/27/18 19:51 Dose: 1 mg Pantoprazole Sodium (Protonix Inj) 40 mg IVP DAILY [facility] Last Admin: 06/27/18 09:55 Dose: 40 mg Rosuvastatin Calcium (Crestor) 5 mg PO HS [facility] Last Admin: 06/26/18 22:20 Dose: Not Given Sacubitril/Valsartan (Entresto 24 Mg-26 Mg) 1 tab PO DAILY [facility] Last Admin: 06/25/18 09:35 Dose: 1 tab - Labs Labs: 06/27/18 06:15 06/27/18 06:15 PT 13.9 SECONDS (9.7-12.2) H 06/23/18 16:39 INR 1.3 06/23/18 16:39 APTT 41 SECONDS (21-34) H 06/23/18 16:39 - Constitutional Appears: Well - Head Exam Head Exam: ATRAUMATIC, NORMAL INSPECTION, NORMOCEPHALIC - Eye Exam Eye Exam: EOMI, Normal appearance, PERRL Pupil Exam: NORMAL ACCOMODATION, PERRL - ENT Exam ENT Exam: Mucous Membranes Moist, Normal Exam - Neck Exam Neck Exam: Full ROM, Normal Inspection. absent: Lymphadenopathy - Respiratory Exam Respiratory Exam: Decreased Breath Sounds - Cardiovascular Exam Cardiovascular Exam: REGULAR RHYTHM, +S1, +S2 - GI/Abdominal Exam GI & Abdominal Exam: Soft, Diminished Bowel Sounds - Rectal Exam Rectal Exam: Deferred Assessment and Plan - Assessment and Plan (Free Text) Plan: medications reviewed labs reviewed vitals reviewed
--- NOTE | 2018-06-28 00:52 | PN ---
DATE: 06/27/2018 LOCATION: ICU 1. SUBJECTIVE: This is a 68-year-old male seen and examined early today in the intensive care unit, still intubated and somewhat sedated. The entire chart is reviewed including but not limited to the most recent lab and radiology study results, current and previous medication list, current and previous medical events, the patient still has period of hypotension, had been on pressors, IV. Most recent lab results showed hemoglobin of 8.7, hematocrit 27.9 with BUN 31, creatinine 2.4, CO2 content 33 with periods of hypoglycemia of 53 with normal PT and elevated PTT. PHYSICAL EXAMINATION: GENERAL: A 68-year-old male. VITAL SIGNS: Afebrile with pulse of 80 and blood pressure of 102/66, intubated, sedated. HEENT: Showed pale, dry oral mucous membrane. Nonicteric sclerae. LUNGS: Few scattered crepitation. Decreased air entry at bases. HEART: Positive S1 and S2. ABDOMEN: Somewhat distended, somewhat fair, but much less distended than before. EXTREMITIES: Lower extremities covered with clean dressing, somewhat edematous changes. No clubbing or cyanosis. No reported new neurological deficits, sensory or motor. IMPRESSION: 1. Respiratory insufficiency with status post intubation. 2. Liver cirrhosis. 3. Evidence of portal hypertension with ascites. 4. Peripheral vascular disease with chronic lower extremity wounds. 5. Poorly controlled diabetes mellitus. 6. Acute renal insufficiency. 7. Anemia most likely secondary to above. SUGGESTIONS: 1. Agree with your plan. 2. Peripheral hyperalimentation. 3. Flat and upright abdominal x-ray. It has to be mentioned that today's lab results showed bilateral pleural effusion with possible infiltrate and mild pulmonary congestion. Yesterday abdominal x-ray, official report showed specific nonobstructive bowel gas pattern with moderate cardiomegaly and congestion. SUGGESTIONS: 1. Continue current management. 2. Central hyperalimentation. 3. Proton pump inhibitors. 4. No further aggressive GI workup in the meantime. 5. Blood transfusion to keep hemoglobin 10 g percent as needed. 6. Further recommendations to follow. Lisandro Hernandez MD [facility] # [id number]
[2018-06-28 01:09] VITALS: TEMP 97.5
[2018-06-28] MEDS: Phenylephrine 30 MG in Sodium Chloride 0.9% 250 ML IV PRN (01:22)
[2018-06-28 01:49] LABS: ABG ALLEN TEST POS; ARTERIAL BLOOD GAS HCO3 25.3 mmol/L (21-28); ARTERIAL BLOOD GAS HEMOGLOBIN 9.2 g/dL (11.7-17.4); ARTERIAL BLOOD GAS O2 SAT 83.9 % (95-98); ARTERIAL BLOOD GAS PCO2 47 mm/Hg (35-45); ARTERIAL BLOOD GAS PH 7.36 (7.35-7.45); ARTERIAL BLOOD GAS PO2 48 mm/Hg (80-100)
[2018-06-28 03:25] VITALS: BP 71/39
[2018-06-28 03:53] VITALS: O2SAT 61
[2018-06-28] MEDS ORDERED: Sodium Bicarbonate (8.4%) 50 Meq Syringe ONE (04:32)
[2018-06-28] MEDS ORDERED: Calcium Chloride 1000 mg/10 ml Syringe ONE (04:32)
--- NOTE | 2018-06-28 04:47 | CP.PCM.PN ---
<Abraham Henriquez - Last Filed: 06/28/18 04:36> Subjective - Date & Time of Evaluation Date of Evaluation: 06/28/18 Time of Evaluation: 04:36 - Subjective Subjective: House doctor - Code nishant note Code nishant called at 4:14 am for patient ICU 1 pmhx of CHF, liver cirrhosis, DM, HTN under ICU management for respiratory distress. Patient previously intubated. Patient noted to be in PEA and hypoxic. CPR/ACLS/Meds - 6 rounds of epi, 2 sodium bicarb, 1 calcium chloride. Pt continued in PEA, pronounced at 4:32. Patient's person of contact notified by ICU attending. Primary attending to be notified by RN Objective - Vital Signs/Intake and Output Vital Signs (last 24 hours): Temp Pulse Resp BP Pulse Ox 97.5 F L 73 28 H 71/39 L 61 L 06/28/18 00:00 06/28/18 02:51 06/28/18 02:51 06/28/18 03:24 06/28/18 02:51 Intake and Output: 06/27/18 06/28/18 18:59 06:59 Intake Total 1485.7 1602.7 Output Total 159 55 Balance 1326.7 1547.7 - Medications Medications: Current Medications Acetaminophen (Tylenol 325mg Tab) 325 mg PO Q6H PRN PRN Reason: Pain, Mild (1-3) Aspirin (Aspirin Chewable) 81 mg PO DAILY [facility] Last Admin: 06/24/18 09:15 Dose: 81 mg Carvedilol (Coreg) 3.125 mg PO BID [facility] Last Admin: 06/27/18 17:14 Dose: Not Given Enoxaparin Sodium (Lovenox) 40 mg SC DAILY [facility] Last Admin: 06/27/18 09:12 Dose: 40 mg Ferric Sodium Gluconate Complex (Ferrlecit) 125 mg IVPB DAILY [facility] Stop: 07/02/18 10:01 Last Admin: 06/27/18 09:10 Dose: 125 mg Furosemide (Lasix) 60 mg IVP DAILY [facility] Last Admin: 06/27/18 09:11 Dose: 60 mg Ceftaroline Fosamil 400 mg/ (Dextrose) 100 mls @ 100 mls/hr IVPB Q12H [facility]; Protocol Last Admin: 06/27/18 21:41 Dose: 100 mls/hr Phenylephrine HCl 30 mg/ (Sodium Chloride) 253 mls @ 10.12 mls/hr IV .Q24H PRN; Protocol PRN Reason: TITRATE PER MD ORDER Last Titration: 06/28/18 03:00 Dose: 180 mcg/min, 91.08 mls/hr Fentanyl Citrate 2,500 mcg/ (Sodium Chloride) 250 mls @ 24.11 mls/hr IV .[id number] PRN; Protocol PRN Reason: PER TITRATION Last Titration: 06/28/18 03:00 Dose: Infused Norepinephrine Bitartrate 8 mg (/ Dextrose) 258 mls @ 7.74 mls/hr IV .Q24H PRN; Protocol PRN Reason: TITRATE PER MD ORDER Last Admin: 06/28/18 03:24 Dose: 4 mcg/min, 7.74 mls/hr Lorazepam (Ativan) 1 mg IVP Q4H PRN PRN Reason: Anxiety Last Admin: 06/27/18 23:30 Dose: 1 mg Pantoprazole Sodium (Protonix Inj) 40 mg IVP DAILY [facility] Last Admin: 06/27/18 09:55 Dose: 40 mg Rosuvastatin Calcium (Crestor) 5 mg PO HS [facility] Last Admin: 06/27/18 21:41 Dose: 5 mg Sacubitril/Valsartan (Entresto 24 Mg-26 Mg) 1 tab PO DAILY [facility] Last Admin: 06/25/18 09:35 Dose: 1 tab - Labs Labs: 06/27/18 06:15 06/27/18 06:15 PT 13.9 SECONDS (9.7-12.2) H 06/23/18 16:39 INR 1.3 06/23/18 16:39 APTT 41 SECONDS (21-34) H 06/23/18 16:39 <Warren Jimenez - Last Filed: 06/28/18 05:05> Subjective - Subjective Subjective: spoke to PEYTONK in the chart Sia and also other family member Sadia Rice [phone] and informed about patient condition Objective - Vital Signs/Intake and Output Vital Signs (last 24 hours): Temp Pulse Resp BP Pulse Ox 97.5 F L 73 28 H 71/39 L 61 L 06/28/18 00:00 06/28/18 02:51 06/28/18 02:51 06/28/18 03:24 06/28/18 02:51 Intake and Output: 06/27/18 06/28/18 18:59 06:59 Intake Total 1485.7 1602.7 Output Total 159 55 Balance 1326.7 1547.7 - Medications Medications: Current Medications Acetaminophen (Tylenol 325mg Tab) 325 mg PO Q6H PRN PRN Reason: Pain, Mild (1-3) Aspirin (Aspirin Chewable) 81 mg PO DAILY [facility] Last Admin: 06/24/18 09:15 Dose: 81 mg Carvedilol (Coreg) 3.125 mg PO BID [facility] Last Admin: 06/27/18 17:14 Dose: Not Given Enoxaparin Sodium (Lovenox) 40 mg SC DAILY [facility] Last Admin: 06/27/18 09:12 Dose: 40 mg Ferric Sodium Gluconate Complex (Ferrlecit) 125 mg IVPB DAILY [facility] Stop: 07/02/18 10:01 Last Admin: 06/27/18 09:10 Dose: 125 mg Furosemide (Lasix) 60 mg IVP DAILY [facility] Last Admin: 06/27/18 09:11 Dose: 60 mg Ceftaroline Fosamil 400 mg/ (Dextrose) 100 mls @ 100 mls/hr IVPB Q12H [facility]; Protocol Last Admin: 06/27/18 21:41 Dose: 100 mls/hr Phenylephrine HCl 30 mg/ (Sodium Chloride) 253 mls @ 10.12 mls/hr IV .Q24H PRN; Protocol PRN Reason: TITRATE PER MD ORDER Last Titration: 06/28/18 03:00 Dose: 180 mcg/min, 91.08 mls/hr Fentanyl Citrate 2,500 mcg/ (Sodium Chloride) 250 mls @ 24.11 mls/hr IV .[id number] PRN; Protocol PRN Reason: PER TITRATION Last Titration: 06/28/18 03:00 Dose: Infused Norepinephrine Bitartrate 8 mg (/ Dextrose) 258 mls @ 7.74 mls/hr IV .Q24H PRN; Protocol PRN Reason: TITRATE PER MD ORDER Last Admin: 06/28/18 03:24 Dose: 4 mcg/min, 7.74 mls/hr Lorazepam (Ativan) 1 mg IVP Q4H PRN PRN Reason: Anxiety Last Admin: 06/27/18 23:30 Dose: 1 mg Pantoprazole Sodium (Protonix Inj) 40 mg IVP DAILY [facility] Last Admin: 06/27/18 09:55 Dose: 40 mg Rosuvastatin Calcium (Crestor) 5 mg PO HS [facility] Last Admin: 06/27/18 21:41 Dose: 5 mg Sacubitril/Valsartan (Entresto 24 Mg-26 Mg) 1 tab PO DAILY [facility] Last Admin: 06/25/18 09:35 Dose: 1 tab - Labs Labs: 06/27/18 06:15 06/27/18 06:15 PT 13.9 SECONDS (9.7-12.2) H 06/23/18 16:39 INR 1.3 06/23/18 16:39 APTT 41 SECONDS (21-34) H 06/23/18 16:39
[2018-06-28 05:44] VITALS: PULSE 77; RESP 20
--- NOTE | 2018-06-28 07:31 | CP.PCM.PRO ---
Pronouncement of Note - Clinical Findings Physical Exam: No Response Verbal/Painful Stimuli, Absent Peripheral Puls es{Carotid & Femoral}, Absent Heart & Breath Sounds - Pronouncement Time Time of Pronouncement of : 04:32 - Notifications Pronouncement Notifications: Family Notified, Atending Notified Postal Transportation Clerk Notified: No - Autopsy Autopsy Requested: No [place] [id number]
--- NOTE | 2018-06-28 08:40 | RAD ---
Chest x-ray single frontal view History: Endotracheal tube evaluation. Comparison: 06/27/2018 Findings: ET tube extending into the midthoracic trachea. NG tube with tip extending into the stomach. Other lines and tubes in stable position. Moderate venous congestion. Moderate bilateral pleural effusions. Relative hazy opacification throughout the right lung with confluent consolidative changes at the left lung base. Cardiomegaly. Left-sided pacemaker. Degenerative changes in the spine and shoulders. Impression: ET tube extending into the midthoracic trachea. NG tube with tip extending into the stomach. Other lines and tubes in stable position. Moderate venous congestion. Moderate bilateral pleural effusions. Relative hazy opacification throughout the right lung with confluent consolidative changes at the left lung base. Cardiomegaly. Left-sided pacemaker.
[2018-06-28] MEDS ORDERED: SILVASORB ANTIMICROBIAL WOUND GEL TOP SCH (10:00)
--- NOTE | 2018-06-28 19:27 | CARD ---
APPROVED REPORT Date of service: 06/23/2018 EKG Measurement Heart [id number] <Conclusion> Ventricular-paced rhythm Abnormal ECG
--- NOTE | 2018-06-29 09:47 | CP.PCM.DIS ---
Provider - Provider Date of Admission: 06/23/18 18:23 Attending physician: Felipa Mahajan MD Consults: 06/23/18 18:19 Cardiology Consult Routine Comment: Consulting Provider: New Rouse Consulting Physician: New Rouse Reason for Consult: CHF 06/23/18 18:20 Hematology Oncology Consult Routine Comment: Consulting Provider: Edi Villavicencio Consulting Physician: Edi Villavicencio Reason for Consult: anemia 06/23/18 21:41 Infectious Disease Consult Routine Comment: Consulting Provider: Yue Guillen Consulting Physician: Yue Guillen Reason for Consult: footulcer Podiatry Consult Routine Comment: Consulting Provider: Camilo Montoya Consulting Physician: Camilo Montoya Reason for Consult: foot ulcer 06/24/18 16:59 Nephrology Consult Routine Comment: Consulting Provider: Reinier Archer Consulting Physician: Reinier Archer Reason for Consult: HELENE 06/24/18 19:03 Gastroenterology Consult Routine Comment: Consulting Provider: Lisandro Garza Consulting Physician: Lisandro Garza Reason for Consult: Chronic GI blood loss (2/2 cirrhosis?) 06/27/18 07:41 Wound Care [Nursing Referral for Wound Care] Routine Comment: Physician Instructions: Reason For Exam: wounds on both lower extremities Time Spent in preparation of Discharge (in minutes): 20 Hospital Course - Lab Results Lab Results: Micro Results 06/26/18 15:43 Naris MRSA Culture (Admit) - Final MRSA NOT DETECTED 06/26/18 16:17 Urine,Catheterized Urine Culture - Final No Growth (<1,000 CFU/ML) 06/25/18 09:08 Urine,Catheterized Urine Culture - Final No Growth (<1,000 CFU/ML) Most Recent Lab Values WBC 8.8 K/uL (4.8-10.8) 06/27/18 06:15 RBC 3.31 Mil/uL (4.40-5.90) L 06/27/18 06:15 Hgb 8.7 g/dL (12.0-18.0) L 06/27/18 06:15 Hct 27.9 % (35.0-51.0) L 06/27/18 06:15 MCV 84.4 fL (80.0-94.0) 06/27/18 06:15 MCH 26.2 pg (27.0-31.0) L 06/27/18 06:15 MCHC 31.0 g/dL (33.0-37.0) L 06/27/18 06:15 RDW 22.7 % (11.5-14.5) H 06/27/18 06:15 Plt Count 231 K/uL (130-400) 06/27/18 06:15 MPV 8.1 fL (7.2-11.7) 06/27/18 06:15 Neut % (Auto) 72.6 % (50.0-75.0) 06/27/18 06:15 Lymph % (Auto) 8.3 % (20.0-40.0) L 06/27/18 06:15 [place] % (Auto) 17.9 % (0.0-10.0) H 06/27/18 06:15 Eos % (Auto) 0.8 % (0.0-4.0) 06/27/18 06:15 Baso % (Auto) 0.4 % (0.0-2.0) 06/27/18 06:15 Neut # (Auto) 6.4 K/uL (1.8-7.0) 06/27/18 06:15 Lymph # (Auto) 0.7 K/uL (1.0-4.3) L 06/27/18 06:15 [place] # (Auto) 1.6 K/uL (0.0-0.8) H 06/27/18 06:15 Eos # (Auto) 0.1 K/uL (0.0-0.7) 06/27/18 06:15 Baso # (Auto) 0.0 K/uL (0.0-0.2) 06/27/18 06:15 Neutrophils % (Manual) 72 % (50-75) 06/27/18 06:15 Lymphocytes % (Manual) 6 % (20-40) L 06/27/18 06:15 Monocytes % (Manual) 21 % (0-10) H 06/27/18 06:15 Eosinophils % (Manual) 1 % (0-4) 06/27/18 06:15 Nucleated RBC % 2 % (0-0) H 06/27/18 06:15 Differential Comment 06/23/18 16:39 Platelet Estimate Normal (NORMAL) 06/27/18 06:15 Large Platelets Present 06/27/18 06:15 Polychromasia Slight 06/27/18 06:15 Hypochromasia (manual) Moderate 06/27/18 06:15 Poikilocytosis (manual Slight 06/27/18 06:15 Anisocytosis (manual) Slight 06/27/18 06:15 Microcytosis (manual) Slight 06/27/18 06:15 Macrocytosis (manual) Slight 06/27/18 06:15 Target Cells Slight 06/27/18 06:15 Tear Drop Cells Slight 06/27/18 06:15 Ovalocytes Slight 06/27/18 06:15 PT 13.9 SECONDS (9.7-12.2) H 06/23/18 16:39 INR 1.3 06/23/18 16:39 APTT 41 SECONDS (21-34) H 06/23/18 16:39 D-Dimer, Quantitative 828 ng/mlDDU (0-243) H 06/26/18 15:43 Puncture Site Rr 06/28/18 01:46 pCO2 47 mm/Hg (35-45) H 06/28/18 01:46 pO2 48 mm/Hg (80-100) L 06/28/18 01:46 HCO3 25.3 mmol/L (21-28) 06/28/18 01:46 ABG pH 7.36 (7.35-7.45) 06/28/18 01:46 ABG Total CO2 28.0 mmol/L (22-28) 06/28/18 01:46 ABG O2 Saturation 83.9 % (95-98) L 06/28/18 01:46 ABG Base Excess 0.8 mmol/L (-2.0-3.0) 06/28/18 01:46 ABG Hemoglobin 9.2 g/dL (11.7-17.4) L 06/28/18 01:46 ABG Carboxyhemoglobin 2.0 % (0.5-1.5) H 06/28/18 01:46 POC ABG HHb (Measured) 15.6 % (0.0-5.0) H 06/28/18 01:46 ABG Methemoglobin 1.1 % (0.0-3.0) 06/28/18 01:46 Bertin Test Pos 06/28/18 01:46 ABG Potassium 4.5 mmol/L (3.6-5.2) 06/26/18 20:52 A-a O2 Difference 606.0 mm/Hg 06/28/18 01:46 Respiratory Index 12.6 06/28/18 01:46 Hgb O2 Saturation 81.3 % (95.0-98.0) L 06/28/18 01:46 Sodium 136.0 mmol/l (132-148) 06/26/18 20:52 Chloride 100.0 mmol/L (98-107) 06/26/18 20:52 Glucose 64 mg/dl (75-110) L 06/26/18 20:52 Lactate 2.5 mmol/L (0.7-2.1) H 06/26/18 20:52 Vent Mode Prvc 06/28/18 01:46 Mechanical Rate 20 06/28/18 01:46 FiO2 100.0 % 06/28/18 01:46 Tidal Volume 500 06/28/18 01:46 PEEP 5 06/28/18 01:46 Sodium 134 mmol/L (132-148) 06/27/18 06:15 Potassium 4.6 mmol/L (3.6-5.2) 06/27/18 06:15 Chloride 95 mmol/L (98-107) L 06/27/18 06:15 Carbon Dioxide 33 mmol/L (22-30) H 06/27/18 06:15 Anion Gap 11 (10-20) 06/27/18 06:15 BUN 31 mg/dL (9-20) H 06/27/18 06:15 Creatinine 2.4 mg/dL (0.8-1.5) H 06/27/18 06:15 Est GFR ( Amer) 33 06/27/18 06:15 Est GFR (Non-Af Amer) 27 06/27/18 06:15 POC Glucose (mg/dL) 78 mg/dL (65-110) 06/27/18 23:58 Random Glucose 53 mg/dL (75-110) L D 06/27/18 06:15 Calcium 8.2 mg/dl (8.6-10.4) L 06/27/18 06:15 Phosphorus 3.5 mg/dL (2.5-4.5) 06/27/18 06:15 Magnesium 2.0 mg/dL (1.6-2.3) 06/27/18 06:15 Iron 128 ug/dL (49-181) 06/25/18 15:04 TIBC 411 ug/dL (250-450) 06/25/18 15:04 % Saturation 31 (20-55) 06/25/18 15:04 Ferritin 54.4 ng/mL 06/25/18 15:04 Total Bilirubin 1.2 mg/dL (0.2-1.3) 06/27/18 06:15 AST 44 U/L (17-59) 06/27/18 06:15 ALT < 6 U/L (21-72) L D 06/27/18 06:15 Alkaline Phosphatase 119 U/L (38-126) 06/27/18 06:15 Troponin I 0.5870 ng/mL (0.00-0.120) H* 06/27/18 18:08 NT-Pro-B Natriuret Pep 5870 pg/mL (0-900) H 06/25/18 09:08 Total Protein 7.1 g/dL (6.3-8.3) 06/27/18 06:15 Albumin 3.6 g/dL (3.5-5.0) 06/27/18 06:15 Globulin 3.5 gm/dL (2.2-3.9) 06/27/18 06:15 Albumin/Globulin Ratio 1.0 (1.0-2.1) 06/27/18 06:15 Alpha Fetoprotein 2.1 ng/mL (0.0-7.5) 06/25/18 09:08 Carcinoembryonic Ag 2.1 ng/mL (0-3.0) 06/25/18 09:08 CA 19-9 Antigen 37.7 U/mL (0-37) H 06/25/18 09:08 Free PSA 0.4 ng/mL 06/25/18 15:04 % Free PSA 80 % (calc) (>25) 06/25/18 15:04 Total PSA 0.5 ng/mL (< or = 4.0) 06/25/18 15:04 25-OH Vitamin D Total 15.2 NG/ML (30.0-100.0) L 06/25/18 09:08 Arterial Blood Potassium 4.5 mmol/L (3.6-5.2) 06/26/18 20:52 Urine Color Bernie (YELLOW) 06/26/18 16:17 Urine Clarity Hazy (Clear) 06/26/18 16:17 Urine pH 6.0 (5.0-8.0) 06/26/18 16:17 Ur Specific [place] 1.011 (1.003-1.030) 06/26/18 16:17 Urine Protein 1+ mg/dL (NEGATIVE) H 06/26/18 16:17 Urine Glucose (UA) Normal mg/dL (Normal) 06/26/18 16:17 Urine Ketones Negative mg/dL (NEGATIVE) 06/26/18 16:17 Urine Blood 3+ (NEGATIVE) H 06/26/18 16:17 Urine Nitrate Negative (NEGATIVE) 06/26/18 16:17 Urine Bilirubin Negative (NEGATIVE) 06/26/18 16:17 Urine Urobilinogen 2.0 mg/dL (0.2-1.0) 06/26/18 16:17 Ur Leukocyte Esterase 1+ [place]/uL (Negative) H 06/26/18 16:17 Urine WBC (Auto) 27 /hpf (0-5) H 06/26/18 16:17 Urine RBC (Auto) 631 /hpf (0-3) H 06/26/18 16:17 Urine WBC Clumps (Auto) Few /hpf (NONE) H 06/26/18 16:17 Ur Squamous Epith Cells 1 /hpf (0-5) 06/26/18 16:17 Uric Acid Crystals Occ /hpf (<OCC) H 06/26/18 16:17 Urine Bacteria Rare (<OCC) 06/26/18 16:17 Hyaline Casts >20 /lpf (0-2) H 06/26/18 16:17 Ur Random Creatinine 55.8 mg/dL 06/24/18 19:20 U Random Total Protein 255 mg/g creat (22-128) H 06/24/18 19:50 Ur Random Sodium 42 mmol/L 06/26/18 18:45 Ur Random Urea Nitrogn 332 mg/dL 06/24/18 19:20 Urine Microalbumin 23.4 mg/L (0.0-16.6) H 06/24/18 19:20 Stool Occult Blood Negative (NEGATIVE) 06/25/18 09:17 Random Vancomycin 20.2 ug/mL 06/24/18 19:20 Hepatitis A IgM Ab Negative (NEGATIVE) 06/25/18 09:08 Hep Bs Antigen Negative (NEGATIVE) 06/25/18 09:08 Hep Bs Antibody Negative (NEGATIVE) 06/25/18 09:08 Hep B Core IgM Ab Negative (NEGATIVE) 06/25/18 09:08 Hepatitis C Antibody Negative (NEGATIVE) 06/25/18 09:08 HIV 1&2 Antibody Screen Negative (NEGATIVE) 06/25/18 09:08 Blood Type A POSITIVE 06/23/18 17:31 Antibody Screen Negative 06/23/18 17:31 - Hospital Course Hospital Course: Patient is admitted with low hemoglobin again is a second admission seen by Dr. Chapman need to do GI workup because of iron deficiency patient continued to have the hemoglobin Patient under went endoscopic could not finish the endoscopy and I developed respiratory distress patient found to have esophageal varices eventually patient was admitted for respiratory distress after intubated to the ICU Sadia the family was notified Also spoke to the sterile 2 days ago as a elian Vela decided to talk to him Patient desaturated to the morning Coreg and ICU attending spoke to the family I also spoke to the family khanh at [id number] area code number pt pronoucned Discharge Exam - Head Exam Head Exam: ATRAUMATIC, NORMAL INSPECTION, NORMOCEPHALIC Discharge Plan - Follow Up Plan Condition: GOOD Disposition: WITH WITHOUT AUTOPSY
--- NOTE | 2018-06-29 15:25 | PN ---
DATE: 06/28/2018 LOCATION: ICU 1. SUBJECTIVE: This is a 68-year-old male seen and examined early in rounds with respiratory distress as reported. The patient apparently was coded early and was pronounced as per the record on 04:32 a.m. and may have to consult this note at this time. Lisandro Hernandez MD
--- NOTE | 2018-06-30 12:01 | VASCLAB ---
Date of service: 06/27/2018 PROCEDURE: Lower Extremity Venous Duplex Exam. HISTORY: Leg swelling PRIORS: None. TECHNIQUE: Bilateral common femoral, femoral, popliteal and posterior tibial, peroneal and great saphenous veins were evaluated. Flow was assessed with color Doppler, compressibility, assessment of phasic flow and augmentation response. Report prepared by Alec Stewart, DAVID, RVT FINDINGS: RIGHT: 1. Common Femoral Vein: 1.1. Compressibility - Fully compressible: Thrombus - None : Flow - Phasic: Augmentation -Normal: Reflux - None. 2. Femoral Vein: 2.1. Compressibility - Fully compressible: Thrombus - None : Flow - Phasic: Augmentation -Normal: Reflux - None. 3. Popliteal Vein: 3.1. Compressibility - Fully compressible: Thrombus - None : Flow - Phasic: Augmentation -Normal: Reflux - None. 4. Posterior Tibial Vein: 4.1. Compressibility - : Thrombus - : Flow - : Augmentation -: Reflux - . 5. Peroneal Vein: 5.1. Compressibility - : Thrombus - : Flow - : Augmentation -: Reflux - . 6. Great Saphenous Vein: 6.1. Compressibility - Fully compressible: Thrombus - None: Flow - Phasic: Augmentation - Normal: Reflux - None. LEFT: 1. Common Femoral Vein: 1.1. Compressibility - Fully compressible: Thrombus - None: Flow - Phasic: Augmentation -Normal: Reflux - None. 2. Femoral Vein: 2.1. Compressibility - Fully compressible: Thrombus - None: Flow - Phasic: Augmentation -Normal: Reflux - None. 3. Popliteal Vein: 3.1. Compressibility - Fully compressible: Thrombus - None : Flow - Phasic: Augmentation -Normal: Reflux - None. 4. Posterior Tibial Vein: 4.1. Compressibility - : Thrombus - : Flow - : Augmentation -: Reflux - . 5. Peroneal Vein: 5.1. Compressibility - : Thrombus - : Flow - : Augmentation -: Reflux - . 6. Great Saphenous Vein: 6.1. Compressibility - Fully compressible: Thrombus - None: Flow - Phasic: Augmentation - Normal: Reflux - None. OTHER FINDINGS: Technically limited study due to severe swelling. IMPRESSION: Right: No evidence of deep or superficial vein thrombosis of the right lower extremity. Normal valve function noted of the right side. Left: No evidence of deep or superficial vein thrombosis of the left lower extremity. Normal valve function noted of the left side.
== END 2018-06-28 06:45 | DRG 432 ==
LOC: C.ER 15:53 → OBSVTOIN 18:23 → C.9E 18:23 → C.5S 20:14 → C.9I 06-26 12:42
PROVIDERS: ADMIT Internal Medicine Nephrology; ATTEND Internal Medicine Nephrology
PROC: 30233N1 Transfusion of Nonautologous Red Blood Cells into Peripheral Vein, Percutaneous Approach (ICD-10-PCS; 2018-06-24)
PROC: 0BH17EZ Insertion of Endotracheal Airway into Trachea, Via Natural or Artificial Opening (ICD-10-PCS; 2018-06-26)
PROC: 5A1945Z Respiratory Ventilation, 24-96 Consecutive Hours (ICD-10-PCS; 2018-06-26)
PROC: 0DJ08ZZ Inspection of Upper Intestinal Tract, Via Natural or Artificial Opening Endoscopic (ICD-10-PCS; principal; 2018-06-26 11:19)
DX: K70.31 Alcoholic cirrhosis of liver with ascites (principal); I50.23 Acute on chronic systolic (congestive) heart failure; J96.01 Acute respiratory failure with hypoxia; N17.0 Acute kidney failure with tubular necrosis; E87.3 Alkalosis; I13.0 Hypertensive heart and chronic kidney disease with heart failure and stage 1 through stage 4 chronic kidney disease, or unspecified chronic kidney disease; D50.9 Iron deficiency anemia, unspecified; L97.929 Non-pressure chronic ulcer of unspecified part of left lower leg with unspecified severity; L97.919 Non-pressure chronic ulcer of unspecified part of right lower leg with unspecified severity; I42.9 Cardiomyopathy, unspecified; K76.6 Portal hypertension; I27.20 Pulmonary hypertension, unspecified; E11.622 Type 2 diabetes mellitus with other skin ulcer; I95.81 Postprocedural hypotension; E11.51 Type 2 diabetes mellitus with diabetic peripheral angiopathy without gangrene; I50.82 Biventricular heart failure; J44.9 Chronic obstructive pulmonary disease, unspecified; T36.8X5A Adverse effect of other systemic antibiotics, initial encounter; E11.65 Type 2 diabetes mellitus with hyperglycemia; B95.62 Methicillin resistant Staphylococcus aureus infection as the cause of diseases classified elsewhere; E11.22 Type 2 diabetes mellitus with diabetic chronic kidney disease; I48.91 Unspecified atrial fibrillation; N18.9 Chronic kidney disease, unspecified; N50.89 Other specified disorders of the male genital organs; F10.21 Alcohol dependence, in remission; E78.00 Pure hypercholesterolemia, unspecified; Z95.810 Presence of automatic (implantable) cardiac defibrillator; Z86.14 Personal history of Methicillin resistant Staphylococcus aureus infection; Z90.49 Acquired absence of other specified parts of digestive tract; Z79.899 Other long term (current) drug therapy; Z79.84 Long term (current) use of oral hypoglycemic drugs